=== PATIENT | male | born 1935 | race Two or more races ===

== ENCOUNTER 2020-02-11 08:04 | Inpatient (IN) | payer MEDICAID ==
[~2020-02-11] VITALS: Ht 172.7 cm; Wt 96.2 kg
--- NOTE | 2020-02-11 08:05 | NUR ---
ED Nurse Note: Patient arrives with RA # [id number] from [facility] for having bright red blood in his trach with low O2 sat per staff. [facility] suctioned patient and saturations improved to 98%. Patient presented with flat afect, reacting on deep pain. Patient had 2 vomoting episodes uppon arrival. Patient presented with bright red lood in his trach tube,and G-tube.
[2020-02-11 08:10] VITALS: BP 170/110
--- NOTE | 2020-02-11 08:13 | Emergency Room Report ---
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, trach, PEG vent dependent presents with bleeding trach prior to arrival, cleared up with some suctioning, no known aggravating relieving factors severity was severe lasting minutes to hours, patient apparently had a desaturation event as well that improved with suctioning patient presents for evaluation and treatment Allergies: Coded Allergies: No Known Allergies (Unverified , 02/11/20) COVID-19 Screening Contact w/high risk pt: No Experienced COVID-19 symptoms?: No COVID-19 Testing performed SLICE PLUG CUTTER OPERATOR HELPER: No Patient History Limited by: medical condition - 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 Past Medical History: see triage record Reviewed Nursing Documentation: PMH: Agreed; PSxH: Agreed Review of Systems All Other Systems: limited - 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 Physical Exam Vital Signs Date Time Temp Pulse Resp B/P (MAP) Pulse Ox O2 Delivery O2 Flow Rate FiO2 02/11/20 07:58 78 33 208/120 (149) 99 Room Air Sp02 EP Interpretation: reviewed, normal General Appearance: no apparent distress, obese Head: normocephalic, atraumatic Eyes: bilateral eye PERRL, bilateral eye EOMI ENT: uvula midline, moist mucus membranes Neck: supple, thyroid normal, supple/symm/no masses, tracheotomy Respiratory: no respiratory distress, no retraction, no accessory muscle use, rales Cardiovascular #1: normal peripheral pulses, regular rate, rhythm, no edema, no gallop, no murmur Gastrointestinal: non tender, soft, no guarding, no rebound Musculoskeletal: normal inspection Neurologic: responsive Skin: no rash, warm/dry Procedures Critical Care Time Critical Care Time Given the critical condition in which the patient arrived, the patient was immediately assessed by myself and the nurse, and cardiac monitoring initiated due to the potential for rapid decompensation of the patient's clinical condition. During the course of the patient's stay, I spent a considerable amount of time at the bedside performing serial re-evaluations of the patient's hemodynamic and clinical status because of the recognized potential threat to life or limb in this condition. I then had a chance to review not only all of the available current laboratory and radiographic studies obtained today, but I also reviewed old records available to me at the time. Additionally, any ancillary information available including production grader records were reviewed. Sequential vital signs were obtained. Critical Care time of 33 minutes was performed exclusive of billable procedures. Medical Decision Making Diagnostic Impression: Primary Impression: Tracheostomy complication Qualified Codes: J95.00 - Unspecified tracheostomy complication Additional Impressions: Tracheostomy malfunction Aspiration pneumonia Qualified Codes: J69.0 - Pneumonitis due to inhalation of food and vomit Sepsis Qualified Codes: A41.9 - Sepsis, unspecified organism; R65.20 - Severe seps is without septic shock; J96.01 - Acute respiratory failure with hypoxia ER Course 84-year-old male history of trach, CVA, PEG, presents with left lower lobe pneumonia, possible aspiration, patient with elevated lactic acid as well as bleeding from the tracheostomy that has since resolved Plan for admission to stepdown unit, cefepime, vancomycin started for MRSA as well as pseudomonal coverage Patient given 2 L of NS with significant improvement in heart rate from 130s down to 110 Plan for admission to stepdown unit under Dr. Crawford Laboratory Tests Test 02/11/20 08:09 02/11/20 08:10 White Blood Count 18.4 K/UL (4.8-10.8) H Red Blood Count 3.44 M/UL (4.70-6.10) L Hemoglobin 10.9 G/DL (14.2-18.0) L Hematocrit 36.7 % (42.0-52.0) L Mean Corpuscular Volume 107 FL (80-99) H Mean Corpuscular Hemoglobin 31.7 PG (27.0-31.0) H Mean Corpuscular Hemoglobin Concent 29.7 G/DL (32.0-36.0) L Red Cell Distribution Width 18.6 % (11.6-14.8) H Platelet Count 425 K/UL (150-450) Mean Platelet Volume 7.4 FL (6.5-10.1) Neutrophils (%) (Auto) % (45.0-75.0) Lymphocytes (%) (Auto) % (20.0-45.0) Monocytes (%) (Auto) % (1.0-10.0) Eosinophils (%) (Auto) % (0.0-3.0) Basophils (%) (Auto) % (0.0-2.0) Differential Total Cells Counted 100 Neutrophils % (Manual) 60 % (45-75) Lymphocytes % (Manual) 15 % (20-45) L Monocytes % (Manual) 16 % (1-10) H Eosinophils % (Manual) 8 % (0-3) H Basophils % (Manual) 1 % (0-2) Band Neutrophils 0 % (0-8) Platelet Estimate Adequate Platelet Morphology Normal Hypochromasia 1+ Anisocytosis 1+ Macrocytosis 1+ Prothrombin Time 11.7 SEC (9.30-11.50) H Prothrombin Time INR 1.1 (0.9-1.1) Activated Partial Thromboplast Time 26 SEC (23-33) Sodium Level 139 MMOL/L (136-145) Potassium Level 4.4 MMOL/L (3.5-5.1) Chloride Level 103 MMOL/L (98-107) Carbon Dioxide Level 33 MMOL/L (21-32) H Anion Gap 3 mmol/L (5-15) L Blood Urea Nitrogen 18 mg/dL (7-18) Creatinine 0.9 MG/DL (0.55-1.30) Estimated Glomerular Filtration Rate > 60 mL/min (>60) Glucose Level 191 MG/DL (74-106) H Lactic Acid Level 4.10 mmol/L (0.4-2.0) H Calcium Level 8.7 MG/DL (8.5-10.1) Phosphorus Level 4.6 MG/DL (2.5-4.9) Magnesium Level 2.1 MG/DL (1.8-2.4) Total Bilirubin 1.8 MG/DL (0.2-1.0) H Direct Bilirubin 1.0 MG/DL (0.0-0.3) H Aspartate Amino Transferase (AST) 43 U/L (15-37) H Alanine Aminotransferase (ALT) 27 U/L (12-78) Alkaline Phosphatase 104 U/L (46-116) Creatine Kinase MB 1.3 NG/ML (0.0-3.6) Troponin I 0.012 ng/mL (0.000-0.056) Pro-B-Type Natriuretic Peptide 5167 pg/mL (0-125) H Total Protein 8.4 G/DL (6.4-8.2) H Albumin 2.7 G/DL (3.4-5.0) L Globulin 5.7 g/dL Albumin/Globulin Ratio 0.5 (1.0-2.7) L Lipase 68 U/L (73-393) L Urine Color Pale yellow Urine Appearance Clear Urine pH 7 (4.5-8.0) Urine Specific [place] 1.005 (1.005-1.035) Urine Protein 2+ (NEGATIVE) H Urine Glucose (UA) Negative (NEGATIVE) Urine Ketones Negative (NEGATIVE) Urine Blood 5+ (NEGATIVE) H Urine Nitrite Negative (NEGATIVE) Urine Bilirubin Negative (NEGATIVE) Urine Urobilinogen 1 MG/DL (0.0-1.0) H Urine Leukocyte Esterase 1+ (NEGATIVE) H Urine RBC 5-10 /HPF (0 - 0) H Urine WBC 0-2 /HPF (0 - 0) Urine Squamous Epithelial Cells Occasional /LPF Urine Bacteria Occasional /HPF (NONE) Microbiology Date/Time Source Procedure Growth Status 02/11/20 08:09 Nasopharynx SARS-CoV-2 RdRp Gene Assay - Final Complete EKG Diagnostic Results Troponin ordered: Yes When was troponin ordered?: Feb 11, 2020 EKG Time: 08:31 EP Interpretation: Atrial fibrillation, rate 124, QTc 517, no acute ST lesions, left axis josh Rhythm Strip Diag. Results Rhythm Strip Time: 09:05 EP Interpretation: yes Rate: 109 Rhythm: other - atrial fibrillatiom Chest X-Ray Diagnostic Results Chest X-Ray Diagnostic Results : Chest X-Ray Ordered: Yes # of Views/Limited/Complete: 1 View Indication: Shortness of Breath EP Interpretation: Yes Interpretation: other - Left lower lobe consolidation Impression: Other - Left lower lobe consolidation Electronically Signed by: Winston Hoang MD Last Vital Signs Date Time Temp Pulse Resp B/P (MAP) Pulse Ox O2 Delivery O2 Flow Rate FiO2 02/11/20 07:58 78 33 208/120 (149) 99 Room Air Disposition: ADMITTED INPATIENT Condition: Critical Focused Exam Allergies: Coded Allergies: No Known Allergies (Unverified , 02/11/20) Date Exam Occurred: Feb 11, 2020 Time Exam Occurred: 09:04 Laboratory Studies Laboratory Tests Test 02/11/20 08:09 02/11/20 08:10 White Blood Count 18.4 K/UL (4.8-10.8) H Red Blood Count 3.44 M/UL (4.70-6.10) L Hemoglobin 10.9 G/DL (14.2-18.0) L Hematocrit 36.7 % (42.0-52.0) L Mean Corpuscular Volume 107 FL (80-99) H Mean Corpuscular Hemoglobin 31.7 PG (27.0-31.0) H Mean Corpuscular Hemoglobin Concent 29.7 G/DL (32.0-36.0) L Red Cell Distribution Width 18.6 % (11.6-14.8) H Platelet Count 425 K/UL (150-450) Mean Platelet Volume 7.4 FL (6.5-10.1) Neutrophils (%) (Auto) % (45.0-75.0) Lymphocytes (%) (Auto) % (20.0-45.0) Monocytes (%) (Auto) % (1.0-10.0) Eosinophils (%) (Auto) % (0.0-3.0) Basophils (%) (Auto) % (0.0-2.0) Neutrophils % (Manual) Pending Lymphocytes % (Manual) Pending Platelet Estimate Pending Platelet Morphology Pending Prothrombin Time 11.7 SEC (9.30-11.50) H Prothromb Time International Ratio 1.1 (0.9-1.1) Activated Partial Thromboplast Time 26 SEC (23-33) Sodium Level 139 MMOL/L (136-145) Potassium Level 4.4 MMOL/L (3.5-5.1) Chloride Level 103 MMOL/L (98-107) Carbon Dioxide Level 33 MMOL/L (21-32) H Anion Gap 3 mmol/L (5-15) L Blood Urea Nitrogen 18 mg/dL (7-18) Creatinine 0.9 MG/DL (0.55-1.30) Estimat Glomerular Filtration Rate > 60 mL/min (>60) Glucose Level 191 MG/DL (74-106) H Lactic Acid Level Pending Calcium Level Pending Phosphorus Level 4.6 MG/DL (2.5-4.9) Magnesium Level 2.1 MG/DL (1.8-2.4) Total Bilirubin 1.8 MG/DL (0.2-1.0) H Direct Bilirubin 1.0 MG/DL (0.0-0.3) H Aspartate Amino Transf (AST/SGOT) 43 U/L (15-37) H Alanine Aminotransferase (ALT/SGPT) 27 U/L (12-78) Alkaline Phosphatase 104 U/L (46-116) Creatine Kinase MB 1.3 NG/ML (0.0-3.6) Troponin I 0.012 ng/mL (0.000-0.056) Pro-B-Type Natriuretic Peptide 5167 pg/mL (0-125) H Total Protein 8.4 G/DL (6.4-8.2) H Albumin 2.7 G/DL (3.4-5.0) L Globulin 5.7 g/dL Albumin/Globulin Ratio 0.5 (1.0-2.7) L Lipase 68 U/L (73-393) L Urine Color Pale yellow Urine Appearance Clear Urine pH 7 (4.5-8.0) Urine Specific [place] 1.005 (1.005-1.035) Urine Protein 2+ (NEGATIVE) H Urine Glucose (UA) Negative (NEGATIVE) Urine Ketones Negative (NEGATIVE) Urine Blood 5+ (NEGATIVE) H Urine Nitrite Negative (NEGATIVE) Urine Bilirubin Negative (NEGATIVE) Urine Urobilinogen 1 MG/DL (0.0-1.0) H Urine Leukocyte Esterase 1+ (NEGATIVE) H Urine RBC Pending Urine WBC Pending Urine Squamous Epithelial Cells Pending Urine Bacteria Pending Vital Signs Last 24 Hour Vital Signs Date Time Temp Pulse Resp B/P (MAP) Pulse Ox O2 Delivery O2 Flow Rate FiO2 02/11/20 08:22 82 30 100 02/11/20 08:10 120 20 Mechanical Ventilator 02/11/20 08:10 97.1 120 20 170/110 99 Mechanical Ventilator 90 02/11/20 07:58 78 33 208/120 (149) 99 Room Air Respiratory Exam: Rhonchi Cardiovascular Exam: S1, S2, Tachycardia, Iregularly Irregular Capillary Refill: Less Than 2 Seconds Peripheral Pulse: Strong Pulse Location: Radial Skin Exam: Normal Winston Medeiros MD Feb 11, 2020 08:13
--- NOTE | 2020-02-11 08:25 | NUR ---
ED Nurse Note: IV line was established on right AC 20ga, blood collected sent to lab
--- NOTE | 2020-02-11 08:27 | NUR ---
ED Nurse Note: Patient was swabed for MRSA, VRE, CRE and COVID all swabs sent to lab
[2020-02-11] MEDS ORDERED: VANCOMYCIN 1.5 GM/300 ML IVPB ONE (08:30)
[2020-02-11] MEDS ORDERED: Cefepime HCl 2 GM in NS 110 ML IV ONE (08:30)
--- NOTE | 2020-02-11 08:36 | NUR ---
ANRDIA Nurse Note: PAULIE- Addendum: 02/11/20 at 0837 by GUZMAN SABRINA-SHANE
[2020-02-11 08:37] LABS: HEMATOCRIT 36.7 % (42.0-52.0); HEMOGLOBIN 10.9 G/DL (14.2-18.0); MEAN CORPUSCULAR VOLUME 107 FL (80-99); PLATELET COUNT 425 K/UL (150-450); RED BLOOD COUNT 3.44 M/UL (4.70-6.10); RED CELL DISTRIBUTION WIDTH 18.6 % (11.6-14.8); WHITE BLOOD COUNT 18.4 K/UL (4.8-10.8)
[2020-02-11 08:45] LABS: INR 1.1 (0.9-1.1)
[2020-02-11] MEDS ORDERED: SENOKOT8.6 MG GT (08:45)
[2020-02-11] MEDS ORDERED: LOSARTAN POTASS50 MG GT (08:45)
[2020-02-11] MEDS ORDERED: BISACODYL5 MG GT (08:45)
[2020-02-11] MEDS ORDERED: METOPROLOL SUCC50 MG GT (08:45)
[2020-02-11] MEDS ORDERED: KEPPRA LIQ100 MG/1 M GT (08:45)
[2020-02-11] MEDS ORDERED: REGLAN10 MG GT (08:45)
[2020-02-11 08:59] LABS: ALANINE AMINOTRANSFERASE 27 U/L (12-78); ALBUMIN 2.7 G/DL (3.4-5.0); ALBUMIN/GLOBULIN RATIO 0.5 (1.0-2.7); ALKALINE PHOSPHATASE 104 U/L (46-116); ANION GAP 3 mmol/L (5-15); ASPARTATE AMINO TRANSFERASE 43 U/L (15-37); BILIRUBIN,TOTAL 1.8 MG/DL (0.2-1.0); BLOOD UREA NITROGEN 18 mg/dL (7-18); CARBON DIOXIDE 33 MMOL/L (21-32); CHLORIDE 103 MMOL/L (98-107); CKMB 1.3 NG/ML (0.0-3.6); CREATININE 0.9 MG/DL (0.55-1.30); PHOSPHORUS 4.6 MG/DL (2.5-4.9); POTASSIUM 4.4 MMOL/L (3.5-5.1); SODIUM 139 MMOL/L (136-145)
[2020-02-11 09:01] LABS: BILIRUBIN, URINE NEGATIVE (NEGATIVE); GLUCOSE, URINE (UA) NEGATIVE (NEGATIVE); KETONES,URINE NEGATIVE (NEGATIVE); LEUKOCYTE ESTERASE ,URINE 1+ (NEGATIVE); NITRITE,URINE NEGATIVE (NEGATIVE); PH,URINE 7 (4.5-8.0); PROTEIN,URINE 2+ (NEGATIVE); UROBILINOGEN,URINE 1 MG/DL (0.0-1.0)
[2020-02-11 09:02] LABS: APPEARANCE,URINE CLEAR; COLOR,URINE PALE YELLOW
[2020-02-11 09:13] LABS: CALCIUM 8.7 MG/DL (8.5-10.1)
[2020-02-11] MEDS ORDERED: Vancomycin 1.5 GM in NS 275 ML IVPB ONE (09:15)
[2020-02-11 09:52] VITALS: BP 110/71
--- NOTE | 2020-02-11 09:54 | NUR ---
ED Nurse Note: Johnson catheter was placed 16F, patient tolerated procedure well
--- NOTE | 2020-02-11 10:23 | Diagnostic Imaging Report ---
Indication: Cough Technique: One view of the chest Comparison: none Findings: There is infiltrate at the left lung base. There may be some pleural fluid. The heart size is normal. There is a tracheostomy. Impression: Left basilar infiltrate and possible pleural fluid Tracheostomy
--- NOTE | 2020-02-11 10:53 | NUR ---
ED Nurse Note: Report given to LISSA Galarza.
--- NOTE | 2020-02-11 11:06 | NUR ---
NURSE NOTES:Report received from FIELD ASSISTANTCici. Patient will be going to room 242.
--- NOTE | 2020-02-11 11:16 | NUR ---
ED Nurse Note: Patient was admited to SDU due to trache malfunctioning. Patient was transfered to the unit via gurney by ACLS protocol, with all belongings. Patient still AAO x0, VSS at this time.
--- NOTE | 2020-02-11 11:45 | NUR ---
NURSE NOTES:Patient transferred to the floor from the ER. Patient arrived via gurney and placed on the bed. Patient does not have any belongings. Patient vitals are stable with blood pressure elevated 149/96, RT placed patient on ventilator with the following settings: Trach is portex 7, AC 12, TV 500, Fi02 40% and peep of 5, patient satting at 100% with no signs of distress noted. Patient IV site is clean dry and intact, running vancomycin. Patient oriented to room and call light, placed on aspiration and fall risk precautions, with bed alarm in the low and locked position, with call light on bed next to patient. Patient is on director clinical operations SR with 78 HR. Johnson placed in the ER is patent and draining yellow urine to gravity and attached to bedside. Patient has pressure injury R lateral malleolus, clean dry and intact with a new optifoam dressing, also applied optifoam to the bilateral heels for prevention. Will contact primary MD for orders.
[2020-02-11 12:00] VITALS: BP 166/77
--- NOTE | 2020-02-11 12:46 | NUR ---
DAUGHTER -SABRINA SALCEDO -[phone],REQUESTED FOR MEDICAL SECRETARY,I CALLED MEDICAL SECRETARY-GILMAR WHEELER,NOTIFIED DAUGHTER REQUESTED FOR HER,GAVE HER NUMBER
--- NOTE | 2020-02-11 13:02 | NUR ---
RAG PRODUCTION WORKER NOTE SW spoke w/ the daughter, Mallorie Garcia, assisted w/ the verification letter of hospitalization as per request.
--- NOTE | 2020-02-11 13:26 | NUR ---
NURSE NOTES:Dr Johnston rounded on patient and gave TO/RB orders for: full code, SCD"s, NPO, Tylenol for fever and mild pain, 1/2NS @ 55ML/HR, discontinue home medications except Keppra 15ml G-tube 2x daily and Losartan 50MG GT daily.
[2020-02-11] MEDS ORDERED: Acetaminophen 650mg/20.3ml GT PRN ×2 (13:30→13:45)
[2020-02-11] MEDS: Piperacillin/Tazobactam 3.375 GM in NS 110 ML IVPB SCH ×2 (14:17→22:01)
--- NOTE | 2020-02-11 14:36 | NUR ---
NURSE NOTES: WOUND ASSESSMENT PATIENT NON-RESPONSIVE WITH TRACH TO VENTILATOR. 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 INTACT. RECOMMEND-CALIVON SKIN PROTECTOR AND OPTIFOAM DRESSING REPLACE EVERY 3 DAYS POSTERIOR SCROTUM -ABRASION NOTED. MEASURES 1X1.2X0.1CM. RECOMMEND-APPLY CALAZINE AND LEAVE OPEN TO AIR. DARK PURPLE BRUISE NOTED ON LEFT UPPER POSTERIOR THIGH. RIGHT LATERAL ANKLE- STAGE III PRESSURE ULCER. MEASURES 0.8X0.5X0.2CM. WOUND BED WITH 60% SLOUGH AND 40% PINK GRANULATION TISSUE TO WOUND BED. THANH-WOUND WITH EVIDENCE OF OLD SCAR. RECOMMEND-CLEAN WITH SALINE. PAT DRY AND APPLY THERAHONEY. COVER WITH OPTIFOAM DRESSING. REPLACE DAILY. ALSO RECOMMEND: REPOSITION AT LEAST EVERY 2 HOURS OR TOLERATED. ELEVATE HEELS WITH PILLOWS. ABOVE DISCUSSED WITH PATIENT'S NURSE.
--- NOTE | 2020-02-11 15:15 | Consultation ---
DATE OF CONSULTATION: 02/11/2020 PRIMARY ATTENDING PHYSICIAN: Oral Crawford MD REASON FOR CONSULT: Sepsis and pneumonia. HISTORY OF PRESENT ILLNESS: This 84-year-old male is admitted today from a nursing facility. The patient was noticed to have bleeding from tracheostomy site. The patient had leukocytosis of 18.4, tachycardia with heart rate of 120, respiratory rate of 33, and chest x-ray showed infiltrate. Had lactic acidosis of 4.1. PAST MEDICAL HISTORY: Significant for history of CVA, ventilator-dependent respiratory failure, status post tracheostomy, status post G-tube placement. ALLERGIES: No known drug allergies. MEDICATIONS: Got the dose of cefepime and vancomycin in the ER. SOCIAL HISTORY: . custodial resident with poor mental and functional status. No other history obtainable. PHYSICAL EXAMINATION: VITAL SIGNS: Temperature 97.1, pulse 108, blood pressure 110/71. GENERAL APPEARANCE: Seems to have normal weight. HEAD AND NECK: Status post tracheostomy. Slight amount of blood at tracheostomy site. HEART: Tachycardic. LUNGS: Clear. ABDOMEN: Soft. G-tube in place. GENITOURINARY: Johnson catheter. EXTREMITIES: Have edema. SKIN: Has rash, especially in upper extremities, seems to be chronic. NEUROLOGIC: Minimally responsive. LABORATORY AND DIAGNOSTIC DATA: Sodium 139, potassium 4.4, chloride 103, bicarb 33, BUN 18, creatinine 0.9, glucose 191. Last lactic acid is 108. Bilirubin is elevated, 1.8. AST 43. BNP is elevated at 5167. Lipase 68. COVID test negative. Chest x-ray shows left basilar infiltrate. IMPRESSION: Sepsis with leukocytosis, tachycardia, and increase in respiratory rate, has left-sided pneumonia, suspected of ventilator-associated pneumonia. Has tracheostomy complication with bleeding. Has anemia and ventilator-dependent respiratory failure. Has elevated bilirubin. RECOMMENDATIONS: Start the patient on IV Zosyn. We will follow up the culture. We will order sputum culture. We will follow up LFT in a few days. At the end of my exam, I thank Dr. Crawford for involving me in the care of this patient. Ulises Vasquez M.D. DR: SHAHRIAR JOB#: [id number] CC:
[2020-02-11 16:00] VITALS: BP 136/63
--- NOTE | 2020-02-11 16:16 | NUR ---
NURSE NOTES:Dr Barry rounded on patient and gave orders for Cardizem 60mg C9lakcs via g tube and Clonidine .01mg F0gceme PRN for SBP >170.
--- NOTE | 2020-02-11 16:23 | Cardiac Electrophysiology PN ---
Subjective Subjective [id number] Objective Last 24 Hour Vital Signs Date Time Temp Pulse Resp B/P (MAP) Pulse Ox O2 Delivery O2 Flow Rate FiO2 02/11/20 16:00 40 02/11/20 15:56 Mechanical Ventilator 02/11/20 15:15 69 20 40 02/11/20 13:10 72 15 40 02/11/20 12:00 40 02/11/20 12:00 97.5 78 22 166/77 (106) 100 02/11/20 12:00 Mechanical Ventilator 02/11/20 12:00 78 02/11/20 11:46 Mechanical Ventilator 02/11/20 11:20 74 29 100 Mechanical Ventilator 40 02/11/20 11:20 74 29 40 02/11/20 11:16 97.1 108 22 110/71 99 Mechanical Ventilator 90 02/11/20 09:52 97.1 108 22 110/71 99 Mechanical Ventilator 90 02/11/20 08:22 82 30 100 02/11/20 08:10 120 20 Mechanical Ventilator 02/11/20 08:10 97.1 120 20 170/110 99 Mechanical Ventilator 90 02/11/20 07:58 78 33 208/120 (149) 99 Room Air Laboratory Tests Test 02/11/20 08:09 02/11/20 08:10 02/11/20 10:40 White Blood Count 18.4 K/UL (4.8-10.8) H Red Blood Count 3.44 M/UL (4.70-6.10) L Hemoglobin 10.9 G/DL (14.2-18.0) L Hematocrit 36.7 % (42.0-52.0) L Mean Corpuscular Volume 107 FL (80-99) H Mean Corpuscular Hemoglobin 31.7 PG (27.0-31.0) H Mean Corpuscular Hemoglobin Concent 29.7 G/DL (32.0-36.0) L Red Cell Distribution Width 18.6 % (11.6-14.8) H Platelet Count 425 K/UL (150-450) Mean Platelet Volume 7.4 FL (6.5-10.1) Neutrophils (%) (Auto) % (45.0-75.0) Lymphocytes (%) (Auto) % (20.0-45.0) Monocytes (%) (Auto) % (1.0-10.0) Eosinophils (%) (Auto) % (0.0-3.0) Basophils (%) (Auto) % (0.0-2.0) Differential Total Cells Counted 100 Neutrophils % (Manual) 60 % (45-75) Lymphocytes % (Manual) 15 % (20-45) L Monocytes % (Manual) 16 % (1-10) H Eosinophils % (Manual) 8 % (0-3) H Basophils % (Manual) 1 % (0-2) Band Neutrophils 0 % (0-8) Platelet Estimate Adequate Platelet Morphology Normal Hypochromasia 1+ Anisocytosis 1+ Macrocytosis 1+ Prothrombin Time 11.7 SEC (9.30-11.50) H Prothromb Time International Ratio 1.1 (0.9-1.1) Activated Partial Thromboplast Time 26 SEC (23-33) Sodium Level 139 MMOL/L (136-145) Potassium Level 4.4 MMOL/L (3.5-5.1) Chloride Level 103 MMOL/L (98-107) Carbon Dioxide Level 33 MMOL/L (21-32) H Anion Gap 3 mmol/L (5-15) L Blood Urea Nitrogen 18 mg/dL (7-18) Creatinine 0.9 MG/DL (0.55-1.30) Estimat Glomerular Filtration Rate > 60 mL/min (>60) Glucose Level 191 MG/DL (74-106) H Lactic Acid Level 4.10 mmol/L (0.4-2.0) H 1.80 mmol/L (0.66-2.22) Calcium Level 8.7 MG/DL (8.5-10.1) Phosphorus Level 4.6 MG/DL (2.5-4.9) Magnesium Level 2.1 MG/DL (1.8-2.4) Total Bilirubin 1.8 MG/DL (0.2-1.0) H Direct Bilirubin 1.0 MG/DL (0.0-0.3) H Aspartate Amino Transf (AST/SGOT) 43 U/L (15-37) H Alanine Aminotransferase (ALT/SGPT) 27 U/L (12-78) Alkaline Phosphatase 104 U/L (46-116) Creatine Kinase MB 1.3 NG/ML (0.0-3.6) Troponin I 0.012 ng/mL (0.000-0.056) Pro-B-Type Natriuretic Peptide 5167 pg/mL (0-125) H Total Protein 8.4 G/DL (6.4-8.2) H Albumin 2.7 G/DL (3.4-5.0) L Globulin 5.7 g/dL Albumin/Globulin Ratio 0.5 (1.0-2.7) L Lipase 68 U/L (73-393) L Urine Color Pale yellow Urine Appearance Clear Urine pH 7 (4.5-8.0) Urine Specific [place] 1.005 (1.005-1.035) Urine Protein 2+ (NEGATIVE) H Urine Glucose (UA) Negative (NEGATIVE) Urine Ketones Negative (NEGATIVE) Urine Blood 5+ (NEGATIVE) H Urine Nitrite Negative (NEGATIVE) Urine Bilirubin Negative (NEGATIVE) Urine Urobilinogen 1 MG/DL (0.0-1.0) H Urine Leukocyte Esterase 1+ (NEGATIVE) H Urine RBC 5-10 /HPF (0 - 0) H Urine WBC 0-2 /HPF (0 - 0) Urine Squamous Epithelial Cells Occasional /LPF Urine Bacteria Occasional /HPF (NONE) Microbiology Date/Time Source Procedure Growth Status 02/11/20 08:10 Rectum Received 02/11/20 08:09 Nasopharynx SARS-CoV-2 RdRp Gene Assay - Final Complete Liang Barry MD Feb 11, 2020 16:23
--- NOTE | 2020-02-11 17:00 | History and Physical Report ---
DATE OF ADMISSION: 02/11/2020 HISTORY OF PRESENT ILLNESS: Patient comes in because of bleeding from the trach site. Patient is status post trach and PEG and status post CVA. Presents with bleeding from the trach site. Patient unable to give any history. Patient also admitted for possible aspiration pneumonia. Does have left lower quadrant consolidation on the chest x-ray as well as leukocytosis. Patient also has elevated CO2 and elevated bilirubin and also tachycardic. Unable to get any history from the patient. PAST MEDICAL HISTORY: Respiratory insufficiency, gastroparesis, hypertension, seizure disorder, constipation, CVA. Patient also had an episode of at the long term. PAST SURGICAL HISTORY: Trach and PEG. FAMILY HISTORY: Unable to obtain. REVIEW OF SYSTEMS: Unable to obtain. SOCIAL HISTORY: Unable to obtain. However according to the notes, patient has no history of smoking, alcohol, or illicit drugs. Comes from a long term facility. MEDICATIONS: Patient takes Senokot, metoprolol, losartan, Keppra, and Bisacodyl. PHYSICAL EXAMINATION: VITAL SIGNS: Temperature is 97.1, pulse is 108, blood pressure 110/71. HEENT: PERRLA. CHEST: Decreased breath sounds on the left. CARDIOVASCULAR: Regular rate and rhythm. Tachycardia is improved. No murmurs. GASTROINTESTINAL: Soft. Positive bowel sounds. Patient has trach site and PEG site does not look that is infected. ABDOMEN: Soft, nontender. No organomegaly. EXTREMITIES: Dorsalis pedis pulses are present. Nonverbal. CENTRAL NERVOUS SYSTEM: Cannot get neurological exam. Patient is mostly nonverbal. Chest x-ray shows left lower lobe pneumonia. LABORATORY DATA: WBC of 18.4, hemoglobin 10.9, platelets 425. Sodium 139, potassium 4.4, BUN of 18, creatinine 0.9, glucose of 191. Lactic acid 4.1. Troponin 0.012. Total bilirubin 1.8. ASSESSMENT AND PLAN: Bleeding from possible trach site, aspiration pneumonia, elevated CO2, elevated bilirubin, tachycardia, and lactic acidosis. I have asked Dr. Samayoa, Dr. Barry, Dr. Rylan Otero, Dr. Ulises Vasquez see the patient for the above-mentioned abnormalities and abnormal imaging as well as abnormal laboratories and abnormal symptoms. Antibiotics if any per Dr. Ulises Vasquez. Ali Kandy Crawford DR: GILBERT JOB#: [id number] CC:
--- NOTE | 2020-02-11 17:03 | NUR ---
503NURSE NOTES:Dr Otero called back and confirmed vent settings for patient as follows: AC12, TV500, FI02 40% and PEEP of 5%, patient tolerating well with current 02 saturation of 100%
[2020-02-11] MEDS: dilTIAZem HCl 60mg tab GT SCH (17:22)
--- NOTE | 2020-02-11 19:15 | NUR ---
NURSE NOTES: Received report from Saad Coley RN. pt is seen sleeping in bed in semi-hernandez's position. Padded side rails noted. Pt is connected to [facility] vent with settings of AC 12, TV 500, fio2- 40% peep of 5.0. O2 sat 97%. Pt has nosigns of apparent distress. Pt breathing is even and unlabored. No signs of pain as pt is sleeping comfortably in bed. No bleeding noted at trach site. With Right AC g20 running 1/2 NS @55ml/hr patent and intact. Bed in lowest position. Call light within reach. Continue to plan of care.
--- NOTE | 2020-02-11 19:36 | NUR ---
NURSE HAND-OFF REPORT: Important Events on Shift:New admit Patient Status: Stable, requires suctioning for coughing of blood in Trach Diet: Pending Orders: Venous Duplex Pending Results/Labs: Pending MD notification: Latest Vital Signs: Temperature 100.0 , Pulse 57 , B/P 136 /63 , Respiratory Rate 23 , O2 SAT 100 , Mechanical Ventilator, O2 Flow Rate . Vital Sign Comment: EKG Rhythm: Sinus Rhythm Rhythm change?: N MD Notified?: - MD Response: Latest Wall Fall Score: 35 Fall Risk: Medium Risk Safety Measures: Call light Within Reach, Bed Alarm Zone 3, Side Rails Side Rails x3, Bed position Low and Locked. Fall Precautions: Yellow Socks Patient Fall Education Report given to LISSA James
[2020-02-11 20:00] VITALS: BP 127/58
[2020-02-11] MEDS: levETIRAcetam 500mg/5ml Liquid GT SCH (20:39)
--- NOTE | 2020-02-11 20:42 | Diagnostic Imaging Report ---
EXAM: US Duplex Bilateral Lower Extremities Veins CLINICAL HISTORY: Pain. THROM TECHNIQUE: Real-time duplex ultrasound scan of the bilateral lower extremity veins integrating B-mode two-dimensional vascular structure, Doppler spectral analysis, color flow Doppler imaging and compression. COMPARISON: No relevant prior studies available. FINDINGS: Right deep veins: Unremarkable. No DVT in the right common femoral, femoral, proximal deep femoral or popliteal veins. The veins demonstrate normal color flow, are normally compressible, with normal phasic flow and/or augmentation response. Right superficial veins: Unremarkable. No thrombus in the visualized right great saphenous vein. Left deep veins: Unremarkable. No DVT in the left common femoral, femoral, proximal deep femoral or popliteal veins. The veins demonstrate normal color flow, are normally compressible, with normal phasic flow and/or augmentation response. Left superficial veins: Unremarkable. No thrombus in the visualized left great saphenous vein. Soft tissues: No acute findings. IMPRESSION: No DVT.
--- NOTE | 2020-02-11 21:00 | Consultation ---
DATE OF CONSULTATION: 02/11/2020 CARDIOLOGY CONSULTATION CONSULTING PHYSICIAN: Liang Barry MD REFERRING PHYSICIAN: Oral Crawford MD REASON FOR CONSULTATION: Accelerated hypertension, atrial fibrillation. 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 Patient also noted to have atrial fibrillation with rapid ventricular response with a blood pressure of , now the blood pressure is 208/120. Patient was admitted and Cardiology consultation was obtained for further evaluation. REVIEW OF SYSTEMS: Cannot be obtained due to his mental status. PAST MEDICAL HISTORY: As mentioned above. FAMILY HISTORY: Noncontributory. SOCIAL HISTORY: longterm resident. Does not smoke or drink alcohol. PHYSICAL EXAMINATION: VITAL SIGNS: Blood pressure was 208/120, pulse is 80, was as high as 140 during atrial fibrillation, respirations of 30. HEAD AND NECK: Showed no JVD. Status post tracheostomy. LUNGS: Coarse rhonchi. CARDIOVASCULAR: Shows irregular S1 and S2 with no gallop. ABDOMEN: Soft. Status post G-tube. EXTREMITIES: No pitting edema. LABORATORY DATA: His labs show white count of 18.4, hemoglobin of 11, hematocrit 36, and platelet count of 425. Sodium 139, potassium 4.4, BUN of 18, creatinine of 0.9, and glucose of 191. Troponin is negative. ASSESSMENT AND PLAN: 1. Atrial fibrillation with rapid ventricular response. I will add Cardizem 60 mg q.6h. to his medical regimen. Patient currently is not on any anticoagulation. 2. Accelerated hypertension. Patient on losartan 50 mg daily and Cardizem that would help with atrial fibrillation as well. 3. Bleeding from the trach site. Further evaluation by Surgery. 4. Ventilator-respiratory failure. Further evaluation by Dr. Otero. 5. Dysphagia, status post PEG placement. 6. Elevated white count and sepsis, on IV antibiotic. Thank you very much for allowing me to participate in the care of this patient. Please do not hesitate to contact me for any questions regarding my evaluation. Liang Barry M.D. DR: JOHAN JOB#: [id number] CC:
[2020-02-12] MEDS: dilTIAZem HCl 60mg tab GT SCH ×4 (00:15→18:43)
[2020-02-12 00:51] VITALS: BP 148/64
--- NOTE | 2020-02-12 00:55 | NUR ---
NURSE NOTES: Cleaned patient, sponge bath given. VS WNL. No signs of apparent distress. Suctioned tracheal secretions noted bright red secretions. prev aware.
[2020-02-12 04:00] VITALS: BP 124/63
--- NOTE | 2020-02-12 04:00 | NUR ---
NURSE NOTES: Seen pt with no apparent distress.Pt is still appears drowsy and sleeping but no signs of pain. VS WNL. Suctioned tracheal secretion with Bright red secretions. Reposition pt. Continue to plan of care.
--- NOTE | 2020-02-12 05:00 | NUR ---
NURSE NOTES: Rechecked temp 98.1 after Sponge bath is given from temp 99. Not in distress. No pain. o2 sat 100%. Continue to plan of care.
[2020-02-12] MEDS: Piperacillin/Tazobactam 3.375 GM in NS 110 ML IVPB SCH ×3 (05:12→21:10)
--- NOTE | 2020-02-12 06:08 | NUR ---
NURSE NOTES: Seen pt with no apparent distress.Pt is still appears drowsy and sleeping but no signs of pain. VS WNL. Temp-98.1
--- NOTE | 2020-02-12 06:49 | NUR ---
NURSE NOTES: Noted trending up Trop I. EKG done- Pt is asymptomatic and NSR was noted. Continue to plan of care.
--- NOTE | 2020-02-12 07:15 | NUR ---
NURSE NOTES:RECEIVED BED SIDE REPORT FROM LUIS LEATHER CLEANER OF EXECUTIVE MARKETING ASSISTANT. RECE,D PT WITH HOB ELEVATED 45 DEGREE OBTUNDED TRACH TO VENT .PT TRACH WITH BLOOD TINGE NOTED DURING SUCTIONING BY RT , RENDERED TRACH CARE AND ORAL HYGIENE . PT WITH GT PATENT .GTF ON HOLD PER M.D ORDERS.PT TOLERATING WELL CURRENTS VENT SETTINGS,O2 SAT 100% NOTED AT THIS TIME.FULL BODY ASSESSMENT DONE,REPOSITIONED Q 2 HRS TO PROVIDE COMFORT AND TO PREVENT FURTHER SKIN BREAK DOWN.NO ACUTE DISTRESS TOTED AT THIS TIME. WILL CONT TO MONITOR.
--- NOTE | 2020-02-12 07:15 | NUR ---
NURSE HAND-OFF REPORT: Important Events on Shift: Pt secretion in trach still bright red bleeding, Trop I- 0.038- pt asymptomatic, EKG done- ESR, SSR with 1sr degree AV block- 1x episode pt is asymptomatic endorsed to AM nurse. Patient Status: Stable Diet: NPO Pending Orders: None Pending Results/Labs: None Pending MD notification: None Latest Vital Signs: Temperature 97.7 , Pulse 63 , B/P 129 /59 , Respiratory Rate 15 , O2 SAT 99 , Mechanical Ventilator, O2 Flow Rate . Vital Sign Comment: WNL EKG Rhythm: SSR w/ 1st deg AVB Rhythm change?: N MD Notified?: - MD Response: Latest Wall Fall Score: 35 Fall Risk: Medium Risk Safety Measures: Call light Within Reach, Bed Alarm Zone 1, Side Rails Side Rails x3, Bed position Low and Locked. Fall Precautions: Yellow Socks Patient Fall Education Report given to [LISSA HUDDLESTON].
[2020-02-12 08:00] VITALS: BP 125/59
[2020-02-12] MEDS ORDERED: Losartan 50mg tab GT SCH (09:00)
--- NOTE | 2020-02-12 10:00 | Consultation ---
DATE OF CONSULTATION: 02/12/2020 PULMONARY CONSULTATION CONSULTING PHYSICIAN: Rylan Otero MD HISTORY OF PRESENT ILLNESS: This is an 84-year-old male who has a history of chronic tracheostomy, CVA, and chronic gastrostomy tube. He was sent to the hospital for notable episodes of tracheal bleeding. The tracheal bleeding apparently cleared up with suctioning. Overnight, he has been suctioned by nurses and there is mild tracheal bleeding noted. The tracheostomy site itself appears to be clean. Yesterday, it is noted that he was desaturating with suctioning as well. PAST MEDICAL HISTORY: Chronic encephalopathy, chronic tracheostomy, gastrostomy tube, vent dependence. CURRENT MEDICATIONS: Include Zosyn, vancomycin, clonidine, Cardizem, Keppra, and losartan. REVIEW OF SYSTEMS: Not obtainable. PHYSICAL EXAMINATION: GENERAL: Reveals an elderly male. HEENT: Unremarkable. Trach site is clean. VITAL SIGNS: Blood pressure is 120/60, heart rate 64, respirations 18, he is afebrile, O2 saturation 100% on FiO2 45%. LABORATORY DATA: Lab testing shows white count 18,000, hemoglobin of 10.9, platelet count is normal. Chemistries are unremarkable except for a glucose of 191. Lactic acid 4.1, now 1.8. Coags are negative. Urinalysis shows few pus cells. Venous duplex is negative for DVT. X-ray chest shows a left basilar infiltrate. IMPRESSION: 1. Left lung pneumonia. 2. Leukocytosis. 3. Lactic acidemia. 4. Tracheal bleeding. 5. Chronic tracheostomy. 6. Chronic vent dependence. 7. Chronic G-tube. 8. Previous CVA. DISCUSSION: Admit to the hospital. Agree with broad-spectrum antibiotics. Oxygen and pulmonary hygiene. Tracheostomy site is not to be addressed as it is clean. Await sputum culture. We will follow carefully. DVT and GI prophylaxes. Rylan Otero M.D. DR: JUSTIN JOB#: [id number] CC:
[2020-02-12] MEDS: levETIRAcetam 500mg/5ml Liquid GT SCH ×2 (10:17→21:09)
--- NOTE | 2020-02-12 11:04 | NUR ---
RD ASSESSMENT & RECOMMENDATIONS SEE CARE ACTIVITY FOR COMPLETE ASSESSMENT DAILY ESTIMATED NEEDS: Needs based on Critical care, wound/ 76kg abw 22-28 kcals/kg 2069-7381 total kcals 1.25-2 g protein/kg 95-152 g total protein 25-30 mL/kg 4239-8502 total fluid mLs NUTRITION DIAGNOSIS: * Swallowing difficulty R/T respiratory status as evidenced by trach/vent dep, PEG dep, NPO at this time. * Increased kcal/prot/micronutrients needs R/T wound healing as evidenced by pt admitted w/ stage 3 R lateral ankle wound. CURRENT TF:NPO ENTERAL NUTRITION RECOMMENDATIONS: Glucerna 1.5 @ 55ml/hr x 24 hrs to provide 1320ml, 1980kcal, 109g prot, 1002ml free water * As medically appropriate, initiate Glucerna 1.5 @ 25ml/hr x 6hrs * Advance 10ml q 4-6 hrs as tolerated to goal rate * HOB over 30 degrees/ water flush per MD ADDITIONAL RECOMMENDATIONS: * Calibrated bedscale wt * Wound healing: TF rec @ goal provides 100% RDI add Vit C 500mg QD, ZnSO4 220mg QD x 10 days Yuriy BID via PEG w/ TF order * Monitor BGs, need for NISS
--- NOTE | 2020-02-12 11:27 | Infectious Diseases Prog Note ---
Assessment/Plan Assessment/Plan IMPRESSION: Sepsis Bacteremia Left-sided pneumonia, Tracheostomy complication with bleeding. Anemia Ventilator-dependent respiratory failure. Elevated bilirubin. RECOMMENDATIONS: Continue IV Zosyn. Start on IV Vancomycin We will follow up the cultures. Subjective ROS Limited/Unobtainable: Yes Constitutional: Denies: fever Allergies: Coded Allergies: No Known Allergies (Unverified , 02/11/20) Objective Last 24 Hour Vital Signs Date Time Temp Pulse Resp B/P (MAP) Pulse Ox O2 Delivery O2 Flow Rate FiO2 02/12/20 08:00 Mechanical Ventilator 02/12/20 08:00 99.1 69 21 125/59 (81) 100 02/12/20 07:00 78 18 45 02/12/20 05:30 63 15 40 02/12/20 05:13 72 129/59 02/12/20 04:00 Mechanical Ventilator 02/12/20 04:00 40 02/12/20 04:00 97.7 64 20 124/63 (83) 99 02/12/20 03:29 67 02/12/20 03:03 59 15 40 02/12/20 00:51 99.0 72 18 148/64 (92) 100 02/12/20 00:50 61 15 40 02/12/20 00:15 72 148/64 02/12/20 00:00 Mechanical Ventilator 02/11/20 23:28 61 02/11/20 22:52 60 18 40 02/11/20 20:49 67 21 40 02/11/20 20:00 98.1 63 14 127/58 (81) 96 02/11/20 20:00 Mechanical Ventilator 02/11/20 20:00 40 02/11/20 19:05 54 02/11/20 19:03 57 23 40 02/11/20 17:22 69 136/63 02/11/20 17:05 67 19 40 02/11/20 16:00 100.0 70 22 136/63 (87) 100 02/11/20 16:00 69 02/11/20 16:00 40 02/11/20 15:56 Mechanical Ventilator 02/11/20 15:15 69 20 40 02/11/20 13:10 72 15 40 02/11/20 12:00 40 02/11/20 12:00 97.5 78 22 166/77 (106) 100 02/11/20 12:00 Mechanical Ventilator 02/11/20 12:00 78 02/11/20 11:46 Mechanical Ventilator Height (Feet): 5 Height (Inches): 8.00 Weight (Pounds): 212 HEENT: status post trach Respiratory/Chest: lungs clear, other - on ventilator Cardiovascular: normal rate Abdomen: soft, non tender, other - GT feeding Extremities: other - trace edema Skin: rash, other - pigmentation in arms Neurologic/Psychiatric: aphasia Microbiology Date/Time Source Procedure Growth Status 02/11/20 13:40 Sputum Gram Stain - Final Resulted 02/11/20 13:40 Sputum Sputum Culture Pending Resulted 02/11/20 08:10 Rectum Received 02/11/20 08:09 Nasopharynx SARS-CoV-2 RdRp Gene Assay - Final Complete 02/11/20 07:50 Blood Blood Culture - Preliminary Resulted Laboratory Tests Test 02/12/20 03:00 Troponin I 0.038 ng/mL (0.000-0.056) Current Medications Medications (Trade) Dose Ordered Sig/Natalia Route PRN Reason Start Time Stop Time Status Last Admin Dose Admin Acetaminophen (Tylenol) 650 mg Q4H PRN GT Temp >100.5 02/11/20 13:30 03/12/20 13:29 Acetaminophen (Tylenol) 650 mg Q4H PRN GT Mild Pain (Pain Scale 1-3) 02/11/20 13:45 03/12/20 13:44 Clonidine HCl (Catapres Tab) 0.1 mg Q2H PRN GT For High Blood Pressure 02/11/20 16:30 05/11/20 16:29 Diltiazem HCl (Cardizem Tab) 60 mg EVERY 6 HOURS GT 02/11/20 18:00 03/12/20 17:59 02/12/20 05:13 Heparin Sodium (Porcine) (Heparin 5000 units/ml) 5,000 units EVERY 12 HOURS SUBQ 02/12/20 21:00 03/28/20 20:59 Levetiracetam (Keppra) 1,500 mg Q12HR GT 02/11/20 21:00 03/12/20 20:59 02/12/20 10:17 Pantoprazole (Protonix) 40 mg DAILY IVP 02/13/20 09:00 03/14/20 08:59 Piperacillin Sod/ Tazobactam Sod 3.375 gm/Sodium Chloride 110 ml @ 27.5 mls/hr EVERY 8 HOURS IVPB 02/11/20 14:00 02/16/20 13:59 02/12/20 05:12 Sodium Chloride 1,000 ml @ 55 mls/hr [id number] IV 02/11/20 13:45 03/12/20 13:44 02/12/20 06:57 Ulises Vasquez MD Feb 12, 2020 11:27
[2020-02-12 12:00] VITALS: BP 115/56
[2020-02-12] MEDS ORDERED: Vancomycin 1.25gm Premix q24h IVPB SCH (13:00)
[2020-02-12] MEDS ORDERED: NS 275ml ONE (13:14)
[2020-02-12] MEDS ORDERED: D5NS 1000ml IV ONE (13:14)
[2020-02-12] MEDS ORDERED: 1/2 NS 1000ml IV ONE (13:14)
[2020-02-12] MEDS ORDERED: Tubing IV Secondary IV ONE (13:14)
--- NOTE | 2020-02-12 14:14 | NUR ---
CASE MANAGEMENT: INITIAL REVIEW 02/11/2020 84 YO M WHITNEY FROM [facility] CC: TRACH MALFUNCTION PMHx: CVA, trach, PEG vent dependent SI:TRACH MALFUNCTION. PNA. HR 78 RR 33 B/P 208/120 SATS 99% ON T COLLAR LABS: WBC 18.4 CO2 33 GLU 191 LACTIC ACID 4.1 TBILI 1.8 DBILI 1 AST 43 BUN 5167 IS:NS BOLUS X2 CEFEPIME IV X1 VANCO IV X1 PATIENT ADMITTED TO SDU 02/11/2020 @ 0953 DCP: [facility] CONCURRENT REVIEW FOR 02/12/2020 SI:PNA VS: T 98.4 HR 75 RR 20 B/P 115/56 SATS 97% ON MECH VENT FIO2 40 LABS: NO LABS TODAY IS:NS @ 55 ML/HR CARDIZEM GT Q6H ZOSYN IV Q8H VANCO IV Q12H KEPPRA GT Q12H PROTONIX IV QD SDU DCP: [facility] PLAN OF CARE: Oxygen and pulmonary hygiene. Tracheostomy site is not to be addressed as it is clean. Await sputum culture.
--- NOTE | 2020-02-12 14:28 | NUR ---
INSURANCE CLINICALS AND REVIEW SENT TO [facility] FAX [phone]
--- NOTE | 2020-02-12 14:45 | Consultation ---
History of Present Illness General Date patient seen: Feb 12, 2020 Reason for Hospitalization: General Complaint Present Illness HPI 84-year-old male history of CVA, trach, PEG vent dependent presents with bleeding trach prior to arrival, cleared up with some suctioning, no known aggr avating relieving factors severity was severe lasting minutes to hours, patient apparently had a desaturation event as well that improved with suctioning patient presents for evaluation and treatment. Patient mated for the care management. Given tracheostomy bleeding surgery called to eval and assist with care. Patient seen, patient evaluated, chart reviewed. Allergies: Coded Allergies: No Known Allergies (Unverified , 02/11/20) COVID-19 Screening Contact w/high risk pt: No Experienced COVID-19 symptoms?: No Medication History Scheduled Bisacodyl* (Dulcolax*), 5 MG GT DAILY, (Reported) Levetiracetam (Keppra), 15 ML GT TWICE A DAY, (Reported) Losartan Potassium* (Losartan Potassium*), 50 MG GT DAILY, (Reported) Metoclopramide Hcl* (Reglan*), 10 MG GT THREE TIMES A DAY, (Reported) Metoprolol Succinate* (Metoprolol Succinate*), 50 MG GT DAILY, (Reported) Miscellaneous Medications Sennosides (Senokot), 8.6 MG GT, (Reported) Patient History Limited by: medical condition History Provided By: Medical Record, PMD Healthcare decision maker Resuscitation status Advanced Directive on File Past Medical/Surgical History Past Medical/Surgical History: (1) Sepsis (2) Aspiration pneumonia (3) Tracheostomy complication (4) Tracheostomy malfunction Review of Systems Review of Symptoms General ROS: no weight loss or fever Psychological ROS: no depression or mood changes, no memory loss Ophthalmic ROS: no visual changes or eye irritation ENT ROS: no nasal congestion, hearing loss, dizziness Allergy and Immunology ROS: no allergic symptoms or urticaria Hematological and Lymphatic ROS: no swollen glands, unusual bleeding or bruising Endocrine ROS: no polyuria, polydipsia, weight changes, temperature intolerance Respiratory ROS: no cough, shortness of breath, or wheezing Cardiovascular ROS: no chest pain or dyspnea on exertion Gastrointestinal ROS: denies abdominal pain, bright red blood in stool. Musculoskeletal ROS: no myalgias or arthralgias Neurological ROS: no TIA or stroke symptoms Dermatological ROS: no new or changing skin lesions, rashes or pruritis Limited given medical condition Physical Exam Physical Exam General appearance: alert, no distress, appears stated age Head: Normocephalic, without obvious abnormality, atraumatic Eyes: conjunctivae/corneas clear. PERRL, EOM's intact. Fundi benign Throat: Lips, mucosa, and tongue normal. Teeth and gums normal trach stable no issues Neck: supple, symmetrical, trachea midline, no adenopathy, thyroid: not en larged, symmetric, no tenderness/mass/nodules, no carotid bruit and no JVD trach no active bleeding noted deep suctioning performed Lungs: clear to auscultation bilaterally Heart: regular rate and rhythm, S1, S2 normal, no murmur, click, rub or gallop Abdomen: soft, non-tender. Bowel sounds normal. No masses, no organomegaly feeding tube Extremities: extremities normal, atraumatic, no cyanosis or edema Pulses: 2+ and symmetric Skin: Skin color, texture, turgor normal. No rashes or lesions Neurologic: Grossly normal Last 24 Hour Vital Signs Date Time Temp Pulse Resp B/P (MAP) Pulse Ox O2 Delivery O2 Flow Rate FiO2 02/12/20 12:57 75 115/56 02/12/20 12:00 98.4 75 20 115/56 (75) 97 02/12/20 12:00 Mechanical Ventilator 02/12/20 12:00 40 02/12/20 08:00 Mechanical Ventilator 02/12/20 08:00 99.1 69 21 125/59 (81) 100 02/12/20 08:00 40 02/12/20 07:48 66 02/12/20 07:00 78 18 45 02/12/20 05:30 63 15 40 02/12/20 05:13 72 129/59 02/12/20 04:00 Mechanical Ventilator 02/12/20 04:00 40 02/12/20 04:00 97.7 64 20 124/63 (83) 99 02/12/20 03:29 67 02/12/20 03:03 59 15 40 02/12/20 00:51 99.0 72 18 148/64 (92) 100 02/12/20 00:50 61 15 40 02/12/20 00:15 72 148/64 02/12/20 00:00 Mechanical Ventilator 02/11/20 23:28 61 02/11/20 22:52 60 18 40 02/11/20 20:49 67 21 40 02/11/20 20:00 98.1 63 14 127/58 (81) 96 02/11/20 20:00 Mechanical Ventilator 02/11/20 20:00 40 02/11/20 19:05 54 02/11/20 19:03 57 23 40 02/11/20 17:22 69 136/63 02/11/20 17:05 67 19 40 02/11/20 16:00 100.0 70 22 136/63 (87) 100 02/11/20 16:00 69 02/11/20 16:00 40 02/11/20 15:56 Mechanical Ventilator 02/11/20 15:15 69 20 40 l Intake and Output 02/11/20 02/12/20 18:59 06:59 Intake Total 330.0 ml 797.5 ml Output Total 701 ml 700 ml Balance -371.0 ml 97.5 ml Intake IV Total 330.0 ml 797.5 ml Output Urine Total 701 ml 700 ml Laboratory Tests Test 02/12/20 03:00 Troponin I 0.038 ng/mL (0.000-0.056) Height (Feet): 5 Height (Inches): 8.00 Weight (Pounds): 212 Medications Current Medications Medications (Trade) Dose Ordered Sig/Natalia Route PRN Reason Start Time Stop Time Status Last Admin Dose Admin Acetaminophen (Tylenol) 650 mg Q4H PRN GT Temp >100.5 02/11/20 13:30 03/12/20 13:29 Acetaminophen (Tylenol) 650 mg Q4H PRN GT Mild Pain (Pain Scale 1-3) 02/11/20 13:45 03/12/20 13:44 Clonidine HCl (Catapres Tab) 0.1 mg Q2H PRN GT For High Blood Pressure 02/11/20 16:30 05/11/20 16:29 Diltiazem HCl (Cardizem Tab) 60 mg EVERY 6 HOURS GT 02/11/20 18:00 03/12/20 17:59 02/12/20 12:57 Heparin Sodium (Porcine) (Heparin 5000 units/ml) 5,000 units EVERY 12 HOURS SUBQ 02/12/20 21:00 03/28/20 20:59 Levetiracetam (Keppra) 1,500 mg Q12HR GT 02/11/20 21:00 03/12/20 20:59 02/12/20 10:17 Pantoprazole (Protonix) 40 mg DAILY IVP 02/13/20 09:00 03/14/20 08:59 Piperacillin Sod/ Tazobactam Sod 3.375 gm/Sodium Chloride 110 ml @ 27.5 mls/hr EVERY 8 HOURS IVPB 02/11/20 14:00 02/16/20 13:59 02/12/20 13:36 Sodium Chloride 1,000 ml @ 55 mls/hr [id number] IV 02/11/20 13:45 03/12/20 13:44 02/12/20 06:57 Vancomycin HCl (Vanco pharmacy to dose) 1 ea DAILY PRN MISC Per rx protocol 02/12/20 11:30 03/13/20 11:29 Vancomycin HCl 1 gm/Sodium Chloride 275 ml @ 183.708 mls/hr Q12H IVPB 02/13/20 00:00 02/18/20 00:00 Assessment/Plan Problem List: (1) Sepsis ICD Codes: A41.9 - Sepsis, unspecified organism SNOMED: 26522281 Qualifiers: Qualified Codes: A41.9 - Sepsis, unspecified organism; R65.20 - Severe sepsis without septic shock; J96.01 - Acute respiratory failure with hypoxia (2) Aspiration pneumonia ICD Codes: J69.0 - Pneumonitis due to inhalation of food and vomit SNOMED: 495131351 Qualifiers: Qualified Codes: J69.0 - Pneumonitis due to inhalation of food and vomit (3) Tracheostomy complication Assessment & Plan: This 84-year-old male with bleeding from tracheostomy noted in facility. Since has had some residue within the suctioning. Trach evaluated bedside no active bleeding noted. No skin issues. Mild granulation tissue. Able to manipulate and function without problem. Deep suctioning performed no active bleeding identified. Potential isolated incident we will continue to monitor over the next 2 to 3 days to ensure no active bleeding or source of bleeding that requires intervention. Thank you Medina participate in patient's care There is infiltrate at the left lung base. There may be some pleural fluid. The heart size is normal. There is a tracheostomy. Impression: Left basilar infiltrate and possible pleural fluid Tracheostomy ICD Codes: J95.00 - Unspecified tracheostomy complication SNOMED: 23262382 Qualifiers: Qualified Codes: J95.00 - Unspecified tracheostomy complication (4) Tracheostomy malfunction ICD Codes: J95.03 - Malfunction of tracheostomy stoma SNOMED: 375932619 Yousuf Samayoa Feb 12, 2020 14:45
[2020-02-12 16:00] VITALS: BP 149/70
--- NOTE | 2020-02-12 17:06 | General Progress Note ---
Subjective ROS Limited/Unobtainable: Yes Allergies: Coded Allergies: No Known Allergies (Unverified , 02/11/20) Objective Last 24 Hour Vital Signs Date Time Temp Pulse Resp B/P (MAP) Pulse Ox O2 Delivery O2 Flow Rate FiO2 02/12/20 15:07 62 15 45 02/12/20 13:25 72 14 45 02/12/20 12:57 75 115/56 02/12/20 12:00 98.4 75 20 115/56 (75) 97 02/12/20 12:00 Mechanical Ventilator 02/12/20 12:00 40 02/12/20 11:20 67 20 45 02/12/20 09:20 70 16 45 02/12/20 08:00 Mechanical Ventilator 02/12/20 08:00 99.1 69 21 125/59 (81) 100 02/12/20 08:00 40 02/12/20 07:48 66 02/12/20 07:00 78 18 45 02/12/20 05:30 63 15 40 02/12/20 05:13 72 129/59 02/12/20 04:00 Mechanical Ventilator 02/12/20 04:00 40 02/12/20 04:00 97.7 64 20 124/63 (83) 99 02/12/20 03:29 67 02/12/20 03:03 59 15 40 02/12/20 00:51 99.0 72 18 148/64 (92) 100 02/12/20 00:50 61 15 40 02/12/20 00:15 72 148/64 02/12/20 00:00 Mechanical Ventilator 02/11/20 23:28 61 02/11/20 22:52 60 18 40 02/11/20 20:49 67 21 40 02/11/20 20:00 98.1 63 14 127/58 (81) 96 02/11/20 20:00 Mechanical Ventilator 02/11/20 20:00 40 02/11/20 19:05 54 02/11/20 19:03 57 23 40 02/11/20 17:22 69 136/63 Intake and Output 02/11/20 02/12/20 19:00 07:00 Intake Total 330.0 ml 797.5 ml Output Total 701 ml 700 ml Balance -371.0 ml 97.5 ml Intake IV Total 330.0 ml 797.5 ml Output Urine Total 701 ml 700 ml Laboratory Tests 02/12/20 03:00: Troponin I 0.038 Height (Feet): 5 Height (Inches): 8.00 Weight (Pounds): 212 Assessment/Plan Problem List: (1) Sepsis ICD Codes: A41.9 - Sepsis, unspecified organism SNOMED: 33997321 Qualifiers: Qualified Codes: A41.9 - Sepsis, unspecified organism; R65.20 - Severe sepsis without septic shock; J96.01 - Acute respiratory failure with hypoxia (2) Aspiration pneumonia ICD Codes: J69.0 - Pneumonitis due to inhalation of food and vomit SNOMED: 615398222 Qualifiers: Qualified Codes: J69.0 - Pneumonitis due to inhalation of food and vomit (3) Tracheostomy complication ICD Codes: J95.00 - Unspecified tracheostomy complication SNOMED: 15028458 Qualifiers: Qualified Codes: J95.00 - Unspecified tracheostomy complication (4) Tracheostomy malfunction ICD Codes: J95.03 - Malfunction of tracheostomy stoma SNOMED: 352962620 Status: progressing Assessment/Plan: afebrile nac sepsis asp pna abx per id reviewed chart Oral Crawford MD Feb 12, 2020 17:05
--- NOTE | 2020-02-12 18:54 | Cardiac Electrophysiology PN ---
Assessment/Plan Assessment/Plan 1. Atrial fibrillation with rapid ventricular response. On Cardizem 60 mg q.6h. Off anticoagulation for tracheal bleed. In SR with first degree AVB 2. Accelerated hypertension. Off losartan 50 mg daily and on Cardizem 3. Bleeding from the trach site. Further evaluation by Surgery. 4. Ventilator-respiratory failure. Further evaluation by Dr. Otero. 5. Dysphagia, status post PEG placement. 6. Elevated white count and sepsis, on IV antibiotic. Subjective Subjective BP better but trach still bleeding. Fio2 45% and PEEP 5 Objective Last 24 Hour Vital Signs Date Time Temp Pulse Resp B/P (MAP) Pulse Ox O2 Delivery O2 Flow Rate FiO2 02/12/20 18:43 63 149/70 02/12/20 17:25 63 12 45 02/12/20 16:00 98.4 83 20 149/70 (96) 100 02/12/20 16:00 40 02/12/20 16:00 66 02/12/20 15:07 62 15 45 02/12/20 13:25 72 14 45 02/12/20 12:57 75 115/56 02/12/20 12:00 98.4 75 20 115/56 (75) 97 02/12/20 12:00 Mechanical Ventilator 02/12/20 12:00 71 02/12/20 12:00 40 02/12/20 11:20 67 20 45 02/12/20 09:20 70 16 45 02/12/20 08:00 Mechanical Ventilator 02/12/20 08:00 99.1 69 21 125/59 (81) 100 02/12/20 08:00 40 02/12/20 07:48 66 02/12/20 07:00 78 18 45 02/12/20 05:30 63 15 40 02/12/20 05:13 72 129/59 02/12/20 04:00 Mechanical Ventilator 02/12/20 04:00 40 02/12/20 04:00 97.7 64 20 124/63 (83) 99 02/12/20 03:29 67 02/12/20 03:03 59 15 40 02/12/20 00:51 99.0 72 18 148/64 (92) 100 02/12/20 00:50 61 15 40 02/12/20 00:15 72 148/64 02/12/20 00:00 Mechanical Ventilator 02/11/20 23:28 61 02/11/20 22:52 60 18 40 02/11/20 20:49 67 21 40 02/11/20 20:00 98.1 63 14 127/58 (81) 96 02/11/20 20:00 Mechanical Ventilator 02/11/20 20:00 40 02/11/20 19:05 54 02/11/20 19:03 57 23 40 Intake and Output 02/11/20 02/12/20 19:00 07:00 Intake Total 330.0 ml 797.5 ml Output Total 701 ml 700 ml Balance -371.0 ml 97.5 ml Intake IV Total 330.0 ml 797.5 ml Output Urine Total 701 ml 700 ml Laboratory Tests Test 02/12/20 03:00 Troponin I 0.038 ng/mL (0.000-0.056) Microbiology Date/Time Source Procedure Growth Status 02/11/20 13:40 Sputum Gram Stain - Final Resulted 02/11/20 13:40 Sputum Sputum Culture Pending Resulted 02/11/20 08:10 Rectum Received 02/11/20 08:09 Nasopharynx SARS-CoV-2 RdRp Gene Assay - Final Complete 02/11/20 08:09 Blood Blood Culture - Preliminary Resulted 02/11/20 07:50 Blood Blood Culture - Preliminary Resulted Objective HEAD AND NECK: no JVD. Status post tracheostomy that still bleeding . LUNGS: Coarse rhonchi. CARDIOVASCULAR: Shows irregular S1 and S2 with no gallop. ABDOMEN: Soft. Status post G-tube. EXTREMITIES: No pitting edema. Liang Barry MD Feb 12, 2020 18:54
--- NOTE | 2020-02-12 19:20 | NUR ---
NURSE NOTES: received pt from Brijesh ALCARAZ., pt is awake and resting on the bed. AO x 1 at this time,Urdu speaker. vent in place, P7 AC 12 TV 500 Fio2 40 P5. no SOB noted. O2sat is at 98%. pt is NPO , Gtube site intact clean, and patent. right AC 20G 1/2 NS 55cc/hr is running, IV site intact, clean, and patent. aggarwal cath is draining well with gravity no bleeding noted at this time. side rails are padded per seizure precaution. call light within reach. will continue to monitor pt with plan of care. bed at the lowest positioned, alarmed, and locked.
--- NOTE | 2020-02-12 19:20 | NUR ---
HAND-OFF: Report given to .SEAMUS ALCARAZ.
[2020-02-12 20:00] VITALS: BP 103/63
[2020-02-12] MEDS: Heparin 5000 units/ml inj SUBQ SCH (21:00)
--- NOTE | 2020-02-12 21:00 | NUR ---
NURSE NOTES: physical assessment unable to chart in the computer, so physical assessment done in paper chart. please see paper chart Addendum: 02/13/20 at 0612 by TATIANA MARCUS RN dayna benjamin [id number]
--- NOTE | 2020-02-12 23:58 | NUR ---
NURSE NOTES: A.fib noted, pt has hx of A.fib. pt is asymptomatic at this time. will continue to monitor pt. call light within reach.
[2020-02-13] VITALS: BP 138/64
--- NOTE | 2020-02-13 | NUR ---
NURSE NOTES: physical assessment unable to chart in the computer, so physical assessment done in paper chart. please see paper chart
[2020-02-13] MEDS: dilTIAZem HCl 60mg tab GT SCH ×4 (00:33→18:11)
[2020-02-13] MEDS: Vancomycin 1 GM in NS 275 ML IVPB SCH ×2 (00:33→11:11)
--- NOTE | 2020-02-13 01:32 | NUR ---
NURSE NOTES: collected sputum, will send to lab. no SOB noted, O2sat is at 100%. call light within reach. will continue to monitor pt.
--- NOTE | 2020-02-13 02:00 | NUR ---
NURSE NOTES: cleaned pt, oral care provided, new gown provided. pt little pink sputum noted. no SOB at this time. call light within reach. will continue to monitor pt.
[2020-02-13 04:00] VITALS: BP 136/75
--- NOTE | 2020-02-13 04:00 | NUR ---
NURSE NOTES: physical assessment unable to chart in the computer, so physical assessment done in paper chart. please see paper chart
[2020-02-13 05:03] LABS: HEMATOCRIT 25.1 % (42.0-52.0); HEMOGLOBIN 7.4 G/DL (14.2-18.0); MEAN CORPUSCULAR VOLUME 105 FL (80-99); PLATELET COUNT 225 K/UL (150-450); RED BLOOD COUNT 2.39 M/UL (4.70-6.10); RED CELL DISTRIBUTION WIDTH 18.5 % (11.6-14.8); WHITE BLOOD COUNT 9.9 K/UL (4.8-10.8)
[2020-02-13] MEDS: Piperacillin/Tazobactam 3.375 GM in NS 110 ML IVPB SCH ×3 (05:45→21:07)
--- NOTE | 2020-02-13 06:41 | NUR ---
NURSE NOTES: notified Dr. Gordon regarding low hgb 7.4. will wait for call back.
--- NOTE | 2020-02-13 06:46 | NUR ---
NURSE NOTES: per Dr. Gordon " I will let Dr. Mata know" regarding low hgb. noted and will continue to monitor pt
--- NOTE | 2020-02-13 06:54 | NUR ---
NURSE NOTES: left message to Dr. Barry regarding pt A. Fib and A.flutter from 23:58 (02.12.2020) to 02:57 (02.13.2020). and now pt is NSR and asymptomatic. call light within reach. will continue to monitor pt.
--- NOTE | 2020-02-13 07:16 | NUR ---
NURSE HAND-OFF REPORT: Important Events on Shift: event of A.Fib and A.flutter, please follow up with . and hgb 7.4 Patient Status: stable Diet: NPO Pending Orders: n/a Pending Results/Labs:n/a Pending MD notification:Dr. Barry regarding event of A.fib and A.flutter, and Dr. Mata regaring hgb 7.4 Latest Vital Signs: Temperature 97.3 , Pulse 70 , B/P 138 /64 , Respiratory Rate 13 , O2 SAT 97 , Mechanical Ventilator, O2 Flow Rate . Vital Sign Comment: stable EKG Rhythm: Sinus Rhythm now but event of A.fib and A. Flutter Rhythm change?: y Notified?: y Dr.Toluie RICARDO Response: no new order yet Latest Wall Fall Score: 35 Fall Risk: Medium Risk Safety Measures: Call light Within Reach, Bed Alarm Zone 3, Side Rails Side Rails x3, Bed position Low and Locked. Fall Precautions: Yellow Socks Yellow Gown Door Sign Patient Fall Education Report given to Arnold ALCARAZ., Addendum: 02/13/20 at 0725 by TATIANA MARCUS RN pending labs: sputum, and micro swabs.
--- NOTE | 2020-02-13 07:17 | NUR ---
NURSE NOTES: Received patient from Pushpa Sheldon under the care of Dr. Crawford for the admitiing dx. of Trach malfunction. Patient noted full code and NKA. Standard precaution observed and maintained at all times. Patient is alert and oriented to self. Patient tolerating vent settings well, with no sign of acute distress or discomfort noted. Will continue to monitor.
[2020-02-13 08:00] VITALS: BP 136/73
--- NOTE | 2020-02-13 08:30 | NUR ---
NURSE NOTES: Dr. Edgar made aware of patient's Hgb level, with order for 1 PRBC. Order noted and carried out. Patient in stable comndition. No apparent distress noted. Will continue to monitor.
[2020-02-13] MEDS: Heparin 5000 units/ml inj SUBQ SCH ×2 (09:00→20:06)
--- NOTE | 2020-02-13 09:10 | Consultation ---
History of Present Illness General Chief Complaint: General Complaint Present Illness Allergies: Coded Allergies: No Known Allergies (Unverified , 02/11/20) Medication History Scheduled Bisacodyl* (Dulcolax*), 5 MG GT DAILY, (Reported) Levetiracetam (Keppra), 15 ML GT TWICE A DAY, (Reported) Losartan Potassium* (Losartan Potassium*), 50 MG GT DAILY, (Reported) Metoclopramide Hcl* (Reglan*), 10 MG GT THREE TIMES A DAY, (Reported) Metoprolol Succinate* (Metoprolol Succinate*), 50 MG GT DAILY, (Reported) Miscellaneous Medications Sennosides (Senokot), 8.6 MG GT, (Reported) Patient History Healthcare decision maker Resuscitation status Advanced Directive on File Physical Exam Last 24 Hour Vital Signs Date Time Temp Pulse Resp B/P (MAP) Pulse Ox O2 Delivery O2 Flow Rate FiO2 02/13/20 05:43 70 138/64 02/13/20 05:02 61 13 45 02/13/20 04:00 97.3 71 20 136/75 (95) 97 02/13/20 04:00 63 02/13/20 04:00 40 02/13/20 03:04 61 14 45 02/13/20 01:21 65 14 45 02/13/20 00:33 77 138/64 02/13/20 00:00 97.9 111 17 138/64 (88) 100 02/12/20 23:58 107 02/12/20 23:04 91 22 45 02/12/20 21:18 118 17 45 02/12/20 20:00 96.6 97 20 103/63 (76) 100 02/12/20 20:00 40 02/12/20 19:47 70 17 45 02/12/20 19:42 65 02/12/20 18:43 63 149/70 02/12/20 17:25 63 12 45 02/12/20 16:00 98.4 83 20 149/70 (96) 100 02/12/20 16:00 40 02/12/20 16:00 66 02/12/20 15:07 62 15 45 02/12/20 13:25 72 14 45 02/12/20 12:57 75 115/56 02/12/20 12:00 98.4 75 20 115/56 (75) 97 02/12/20 12:00 Mechanical Ventilator 02/12/20 12:00 71 02/12/20 12:00 40 02/12/20 11:20 67 20 45 02/12/20 09:20 70 16 45 Intake and Output 02/12/20 02/13/20 19:00 07:00 Intake Total 250 ml 698.958 ml Output Total 500 ml 500 ml Balance -250 ml 198.958 ml Intake Free Water 250 ml IV Total 698.958 ml Output Urine Total 500 ml 500 ml Laboratory Tests Test 02/13/20 03:10 White Blood Count 9.9 K/UL (4.8-10.8) Red Blood Count 2.39 M/UL (4.70-6.10) L Hemoglobin 7.4 G/DL (14.2-18.0) L Hematocrit 25.1 % (42.0-52.0) L Mean Corpuscular Volume 105 FL (80-99) H Mean Corpuscular Hemoglobin 31.0 PG (27.0-31.0) Mean Corpuscular Hemoglobin Concent 29.5 G/DL (32.0-36.0) L Red Cell Distribution Width 18.5 % (11.6-14.8) H Platelet Count 225 K/UL (150-450) Mean Platelet Volume 7.2 FL (6.5-10.1) Neutrophils (%) (Auto) % (45.0-75.0) Lymphocytes (%) (Auto) % (20.0-45.0) Monocytes (%) (Auto) % (1.0-10.0) Eosinophils (%) (Auto) % (0.0-3.0) Basophils (%) (Auto) % (0.0-2.0) Neutrophils % (Manual) Pending Lymphocytes % (Manual) Pending Platelet Estimate Pending Platelet Morphology Pending Height (Feet): 5 Height (Inches): 8.00 Weight (Pounds): 212 Medications Current Medications Medications (Trade) Dose Ordered Sig/Natalia Route PRN Reason Start Time Stop Time Status Last Admin Dose Admin Acetaminophen (Tylenol) 650 mg Q4H PRN GT Temp >100.5 02/11/20 13:30 03/12/20 13:29 Acetaminophen (Tylenol) 650 mg Q4H PRN GT Mild Pain (Pain Scale 1-3) 02/11/20 13:45 03/12/20 13:44 Clonidine HCl (Catapres Tab) 0.1 mg Q2H PRN GT For High Blood Pressure 02/11/20 16:30 05/11/20 16:29 Diltiazem HCl (Cardizem Tab) 60 mg EVERY 6 HOURS GT 02/11/20 18:00 03/12/20 17:59 02/13/20 05:43 Heparin Sodium (Porcine) (Heparin 5000 units/ml) 5,000 units EVERY 12 HOURS SUBQ 02/12/20 21:00 03/28/20 20:59 Levetiracetam (Keppra) 1,500 mg Q12HR GT 02/11/20 21:00 03/12/20 20:59 02/12/20 21:09 Pantoprazole (Protonix) 40 mg DAILY IVP 02/13/20 09:00 03/14/20 08:59 Piperacillin Sod/ Tazobactam Sod 3.375 gm/Sodium Chloride 110 ml @ 27.5 mls/hr EVERY 8 HOURS IVPB 02/11/20 14:00 02/16/20 13:59 02/13/20 05:45 Sodium Chloride 1,000 ml @ 55 mls/hr [id number] IV 02/11/20 13:45 03/12/20 13:44 02/13/20 01:11 Vancomycin HCl (Vanco pharmacy to dose) 1 ea DAILY PRN MISC Per rx protocol 02/12/20 11:30 03/13/20 11:29 Vancomycin HCl 1 gm/Sodium Chloride 275 ml @ 183.708 mls/hr Q12H IVPB 02/13/20 00:00 02/18/20 00:00 02/13/20 00:33 Assessment/Plan Assessment/Plan: Hematology Consultation RETre RICARDO: Oral Raphael RFC: Low hgb DOS: 02/13/2020 HPI 84-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 Patient mated for the care management. Given tracheostomy bleeding surgery called to eval and assist with care. Patient seen, patient evaluated, chart reviewed. Heme was consulted for further eval and rx, has had a rapid drop in hgb/hct. Allergies: No Known Allergies (Unverified , 02/11/20) COVID-19 Screening Contact w/high risk pt: No Experienced COVID-19 symptoms?: No Medication History Scheduled Bisacodyl* (Dulcolax*), 5 MG GT DAILY, (Reported) Levetiracetam (Keppra), 15 ML GT TWICE A DAY, (Reported) Losartan Potassium* (Losartan Potassium*), 50 MG GT DAILY, (Reported) Metoclopramide Hcl* (Reglan*), 10 MG GT THREE TIMES A DAY, (Reported) Metoprolol Succinate* (Metoprolol Succinate*), 50 MG GT DAILY, (Reported) Miscellaneous Medications Sennosides (Senokot), 8.6 MG GT, (Reported) Patient History Limited by: medical condition History Provided By: Medical Record, PMD Healthcare decision maker Resuscitation status Advanced Directive on File Past Medical/Surgical History: (1) Sepsis (2) Aspiration pneumonia (3) Tracheostomy complication (4) Tracheostomy malfunction Review of Systems General: no weight loss or fever Psychological: no depression or mood changes, no memory loss Ophthalmic: no visual changes or eye irritation ENT: no nasal congestion, hearing loss, dizziness Allergy and Immunology: no allergic symptoms or urticaria Endocrine: no polyuria, polydipsia, weight changes Respiratory: no cough, shortness of breath, or wheezing Cardiovascular: no chest pain or dyspnea on exertion Gastrointestinal: denies abdominal pain, bright red blood in stool Musculoskeletal: no myalgias or arthralgias Neurological: no TIA or stroke symptoms Dermatological no new or changing skin lesions, rashes or pruritis Limited given medical condition Physical Exam General appearance: alert, no distress, appears stated age HEENT: Normocephalic, without obvious abnormality, atraumatic, Lips, mucosa, and tongue normal. Teeth and gums normal trach + Lungs: clear to auscultation bilaterally Heart: regular rate and rhythm, S1, S2 normal, no murmur, click, rub or gallop Abdomen: soft, non-tender. Bowel sounds normal. No masses, ++ feeding tube Extremities: extremities normal, atraumatic, no cyanosis or edema Pulses: 2+ and symmetric Skin: Skin color, texture, turgor normal. No rashes or lesions Neurologic: Grossly normal Labs reviewed Imaging: reviewed IMPRESSION/RECS: 1. Leukcytosis with underlying Left lung pneumonia. --> recommend ABX vanc/zosyn --> as per id --> wbc 18-->9 --> smear has been reviewed 2. Anemia due to chronic disease v iron deficiency --> anemia panel ordered --> transfuse prn hgb goal >7 --> occult blood 3. Lactic acidemia. --> likely due to infection 4. Tracheal bleeding. --> per surgery 5. Chronic tracheostomy. 6. Chronic vent dependence. 7. Chronic G-tube. 8. Previous CVA. 9. Dvt ppx heparin sq Appreciate consultation and dW Bryce Gardner MD Feb 13, 2020 09:10
[2020-02-13] MEDS ORDERED: VITAMIN A & D113 GM TP (09:38)
[2020-02-13] MEDS ORDERED: MULTIVITAMINS1 EAC2 GT (09:38)
[2020-02-13] MEDS ORDERED: SANTYL 250 UNIT/GM TOPIC (09:38)
[2020-02-13] MEDS ORDERED: METOPROLOL TART50 MG GT (09:40)
[2020-02-13] MEDS: levETIRAcetam 500mg/5ml Liquid GT SCH ×2 (09:48→20:06)
[2020-02-13] MEDS: Pantoprazole Inj IVP SCH (09:48)
--- NOTE | 2020-02-13 09:48 | NUR ---
CASE MANAGEMENT: REVIEW 02/13/2020 SI:PNA. BLEEDING FROM TRACH STOMA. VS: T 97.3 HR 63 RR 20 B/P 136/75 SATS 97% ON MECH VENT FIO2 45 HGB 7.4 HCT 25.1 IS:NS @ 55 ML/HR CARDIZEM GT Q6H ZOSYN IV Q8H VANCO IV Q12H KEPPRA GT Q12H PROTONIX IV QD SDU DCP: [facility] PLAN OF CARE: TRANSFUSE
[2020-02-13] MEDS ORDERED: NS 275ml ONE ×2 (09:49→16:37)
--- NOTE | 2020-02-13 10:00 | NUR ---
Patient asleep but easily arousable. Tolerating vent settings well, with no signs of acute distress or discomfort noted. Patient still on NPO status but able to tolerate meds given well. Noted with sanguineous respiratory discharge. Airway kept clean and patent at all times. O2 saturation >96% on vent setting. Patient consent for blood transfusion obtained from patient's daughter. Will continue to monitor.
--- NOTE | 2020-02-13 10:35 | Pulmonology Progress Note ---
Subjective ROS Limited/Unobtainable: Yes Interval Events: No peter-tracheal bleeding; still has red tinged endo-tracheal aspirate Constitutional: Reports: no symptoms; Denies: fever HEENT: Repors: no symptoms Respiratory: Reports: no symptoms Cardiovascular: Reports: no symptoms Gastrointestinal/Abdominal: Reports: no symptoms Allergies: Coded Allergies: No Known Allergies (Unverified , 02/11/20) Objective Last 24 Hour Vital Signs Date Time Temp Pulse Resp B/P (MAP) Pulse Ox O2 Delivery O2 Flow Rate FiO2 02/13/20 08:00 97.9 68 20 136/73 (94) 100 02/13/20 08:00 40 02/13/20 08:00 67 02/13/20 07:10 76 14 45 02/13/20 05:43 70 138/64 02/13/20 05:02 61 13 45 02/13/20 04:00 97.3 71 20 136/75 (95) 97 02/13/20 04:00 63 02/13/20 04:00 40 02/13/20 03:04 61 14 45 02/13/20 01:21 65 14 45 02/13/20 00:33 77 138/64 02/13/20 00:00 97.9 111 17 138/64 (88) 100 02/12/20 23:58 107 02/12/20 23:04 91 22 45 02/12/20 21:18 118 17 45 02/12/20 20:00 96.6 97 20 103/63 (76) 100 02/12/20 20:00 40 02/12/20 19:47 70 17 45 02/12/20 19:42 65 02/12/20 18:43 63 149/70 02/12/20 17:25 63 12 45 02/12/20 16:00 98.4 83 20 149/70 (96) 100 02/12/20 16:00 40 02/12/20 16:00 66 02/12/20 15:07 62 15 45 02/12/20 13:25 72 14 45 02/12/20 12:57 75 115/56 02/12/20 12:00 98.4 75 20 115/56 (75) 97 02/12/20 12:00 Mechanical Ventilator 02/12/20 12:00 71 02/12/20 12:00 40 02/12/20 11:20 67 20 45 Intake and Output 02/12/20 02/13/20 19:00 07:00 Intake Total 250 ml 698.958 ml Output Total 500 ml 500 ml Balance -250 ml 198.958 ml Intake Free Water 250 ml IV Total 698.958 ml Output Urine Total 500 ml 500 ml General Appearance: no acute distress HEENT: normocephalic Respiratory: chest wall non-tender, lungs clear Cardiovascular: normal peripheral pulses Abdomen: normal bowel sounds Microbiology Date/Time Source Procedure Growth Status 02/11/20 13:40 Sputum Gram Stain - Final Resulted 02/11/20 13:40 Sputum Culture - Preliminary Gram Negative Bacillus 1 Resulted 02/11/20 08:10 Rectum - Final NO CARBAPENEM-RESISTANT ENTEROBACTERI... Complete 02/11/20 08:10 Rectum VRE Culture - Final Enterococcus Faecalis - Vre Complete 02/11/20 08:10 Nasal Nares MRSA Culture - Final NO METHICILLIN RESISTANT STAPH AUREUS... Complete 02/11/20 08:09 Nasopharynx SARS-CoV-2 RdRp Gene Assay - Final Complete 02/11/20 08:09 Blood Blood Culture - Preliminary Staphylococcus Sp Coag Neg Resulted 02/11/20 07:50 Blood Blood Culture - Preliminary Staphylococcus Aureus Resulted Laboratory Tests 02/13/20 03:10: White Blood Count 9.9, Red Blood Count 2.39L, Hemoglobin 7.4L, Hematocrit 25.1L, Mean Corpuscular Volume 105H, Mean Corpuscular Hemoglobin 31.0, Mean Corpuscular Hemoglobin Concent 29.5L, Red Cell Distribution Width 18.5H, Platelet Count 225, Mean Platelet Volume 7.2, Neutrophils (%) (Auto) , Lymphocytes (%) (Auto) , Monocytes (%) (Auto) , Eosinophils (%) (Auto) , Basophils (%) (Auto) , Neutrophils % (Manual) [Pending], Lymphocytes % (Manual) [Pending], Platelet Estimate [Pending], Platelet Morphology [Pending] Current Medications Medications (Trade) Dose Ordered Sig/Natalia Route PRN Reason Start Time Stop Time Status Last Admin Dose Admin Acetaminophen (Tylenol) 650 mg Q4H PRN GT Temp >100.5 02/11/20 13:30 03/12/20 13:29 Acetaminophen (Tylenol) 650 mg Q4H PRN GT Mild Pain (Pain Scale 1-3) 02/11/20 13:45 03/12/20 13:44 Clonidine HCl (Catapres Tab) 0.1 mg Q2H PRN GT For High Blood Pressure 02/11/20 16:30 05/11/20 16:29 Diltiazem HCl (Cardizem Tab) 60 mg EVERY 6 HOURS GT 02/11/20 18:00 03/12/20 17:59 02/13/20 05:43 Heparin Sodium (Porcine) (Heparin 5000 units/ml) 5,000 units EVERY 12 HOURS SUBQ 02/12/20 21:00 03/28/20 20:59 Levetiracetam (Keppra) 1,500 mg Q12HR GT 02/11/20 21:00 03/12/20 20:59 02/13/20 09:48 Pantoprazole (Protonix) 40 mg DAILY IVP 02/13/20 09:00 03/14/20 08:59 02/13/20 09:48 Piperacillin Sod/ Tazobactam Sod 3.375 gm/Sodium Chloride 110 ml @ 27.5 mls/hr EVERY 8 HOURS IVPB 02/11/20 14:00 02/16/20 13:59 02/13/20 05:45 Sodium Chloride 1,000 ml @ 55 mls/hr [id number] IV 02/11/20 13:45 03/12/20 13:44 02/13/20 01:11 Vancomycin HCl (Vanco pharmacy to dose) 1 ea DAILY PRN MISC Per rx protocol 02/12/20 11:30 03/13/20 11:29 Vancomycin HCl 1 gm/Sodium Chloride 275 ml @ 183.708 mls/hr Q12H IVPB 02/13/20 00:00 02/18/20 00:00 02/13/20 00:33 Assessment/Plan Assessment/Plan IMPRESSION: 1. Left lung pneumonia. 2. Leukocytosis. 3. Lactic acidemia. 4. Endo-tracheal bleeding/hemoptysis 5. Chronic tracheostomy. 6. Chronic vent dependence. 7. Chronic G-tube. 8. Previous CVA. DISCUSSION: Continue broad-spectrum antibiotics. Oxygen and pulmonary hygiene. Tracheostomy site is clean Await sputum culture. I will follow carefully. DVT and GI prophylaxes. Kandy Golden Omar Syed MD Feb 13, 2020 10:35
[2020-02-13 12:00] VITALS: BP 149/82
--- NOTE | 2020-02-13 12:03 | Infectious Diseases Prog Note ---
Assessment/Plan Assessment/Plan IMPRESSION: Sepsis with Staph aureus Gram negative pneumonia, Tracheostomy complication with bleeding. Anemia Ventilator-dependent respiratory failure. Elevated bilirubin. VRE carrier RECOMMENDATIONS: Continue IV Zosyn.&IV Vancomycin TTE We will follow up the cultures. Subjective ROS Limited/Unobtainable: Yes Constitutional: Denies: fever Allergies: Coded Allergies: No Known Allergies (Unverified , 02/11/20) Objective Last 24 Hour Vital Signs Date Time Temp Pulse Resp B/P (MAP) Pulse Ox O2 Delivery O2 Flow Rate FiO2 02/13/20 11:45 65 14 45 02/13/20 09:30 66 12 45 02/13/20 08:00 97.9 68 20 136/73 (94) 100 02/13/20 08:00 40 02/13/20 08:00 67 02/13/20 07:10 76 14 45 02/13/20 05:43 70 138/64 02/13/20 05:02 61 13 45 02/13/20 04:00 97.3 71 20 136/75 (95) 97 02/13/20 04:00 63 02/13/20 04:00 40 02/13/20 03:04 61 14 45 02/13/20 01:21 65 14 45 02/13/20 00:33 77 138/64 02/13/20 00:00 97.9 111 17 138/64 (88) 100 02/12/20 23:58 107 02/12/20 23:04 91 22 45 02/12/20 21:18 118 17 45 02/12/20 20:00 96.6 97 20 103/63 (76) 100 02/12/20 20:00 40 02/12/20 19:47 70 17 45 02/12/20 19:42 65 02/12/20 18:43 63 149/70 02/12/20 17:25 63 12 45 02/12/20 16:00 98.4 83 20 149/70 (96) 100 02/12/20 16:00 40 02/12/20 16:00 66 02/12/20 15:07 62 15 45 02/12/20 13:25 72 14 45 02/12/20 12:57 75 115/56 02/12/20 12:00 98.4 75 20 115/56 (75) 97 02/12/20 12:00 Mechanical Ventilator 02/12/20 12:00 71 02/12/20 12:00 40 Height (Feet): 5 Height (Inches): 8.00 Weight (Pounds): 212 HEENT: status post trach Respiratory/Chest: other - on ventilator, coarse sounds Cardiovascular: normal rate Abdomen: soft, non tender, other - GT feeding Extremities: other - decreased edema Neurologic/Psychiatric: aphasia Microbiology Date/Time Source Procedure Growth Status 02/11/20 13:40 Sputum Gram Stain - Final Resulted 02/11/20 13:40 Sputum Culture - Preliminary Gram Negative Bacillus 1 Resulted 02/11/20 08:10 Rectum - Final NO CARBAPENEM-RESISTANT ENTEROBACTERI... Complete 02/11/20 08:10 Rectum VRE Culture - Final Enterococcus Faecalis - Vre Complete 02/11/20 08:10 Nasal Nares MRSA Culture - Final NO METHICILLIN RESISTANT STAPH AUREUS... Complete 02/11/20 08:09 Nasopharynx SARS-CoV-2 RdRp Gene Assay - Final Complete 02/11/20 08:09 Blood Blood Culture - Preliminary Staphylococcus Sp Coag Neg Resulted 02/11/20 07:50 Blood Blood Culture - Preliminary Staphylococcus Aureus Resulted Laboratory Tests Test 02/13/20 03:10 White Blood Count 9.9 K/UL (4.8-10.8) Red Blood Count 2.39 M/UL (4.70-6.10) L Hemoglobin 7.4 G/DL (14.2-18.0) L Hematocrit 25.1 % (42.0-52.0) L Mean Corpuscular Volume 105 FL (80-99) H Mean Corpuscular Hemoglobin 31.0 PG (27.0-31.0) Mean Corpuscular Hemoglobin Concent 29.5 G/DL (32.0-36.0) L Red Cell Distribution Width 18.5 % (11.6-14.8) H Platelet Count 225 K/UL (150-450) Mean Platelet Volume 7.2 FL (6.5-10.1) Neutrophils (%) (Auto) % (45.0-75.0) Lymphocytes (%) (Auto) % (20.0-45.0) Monocytes (%) (Auto) % (1.0-10.0) Eosinophils (%) (Auto) % (0.0-3.0) Basophils (%) (Auto) % (0.0-2.0) Differential Total Cells Counted 100 Neutrophils % (Manual) 83 % (45-75) H Lymphocytes % (Manual) 3 % (20-45) L Monocytes % (Manual) 9 % (1-10) Eosinophils % (Manual) 5 % (0-3) H Basophils % (Manual) 0 % (0-2) Band Neutrophils 0 % (0-8) Platelet Estimate Adequate Platelet Morphology Normal Polychromasia 1+ Hypochromasia 1+ Anisocytosis 2+ Macrocytosis 1+ Current Medications Medications (Trade) Dose Ordered Sig/Natalia Route PRN Reason Start Time Stop Time Status Last Admin Dose Admin Acetaminophen (Tylenol) 650 mg Q4H PRN GT Temp >100.5 02/11/20 13:30 03/12/20 13:29 Acetaminophen (Tylenol) 650 mg Q4H PRN GT Mild Pain (Pain Scale 1-3) 02/11/20 13:45 03/12/20 13:44 Clonidine HCl (Catapres Tab) 0.1 mg Q2H PRN GT For High Blood Pressure 02/11/20 16:30 05/11/20 16:29 Diltiazem HCl (Cardizem Tab) 60 mg EVERY 6 HOURS GT 02/11/20 18:00 03/12/20 17:59 02/13/20 05:43 Heparin Sodium (Porcine) (Heparin 5000 units/ml) 5,000 units EVERY 12 HOURS SUBQ 02/12/20 21:00 03/28/20 20:59 Levetiracetam (Keppra) 1,500 mg Q12HR GT 02/11/20 21:00 03/12/20 20:59 02/13/20 09:48 Pantoprazole (Protonix) 40 mg DAILY IVP 02/13/20 09:00 03/14/20 08:59 02/13/20 09:48 Piperacillin Sod/ Tazobactam Sod 3.375 gm/Sodium Chloride 110 ml @ 27.5 mls/hr EVERY 8 HOURS IVPB 02/11/20 14:00 02/16/20 13:59 02/13/20 05:45 Sodium Chloride 1,000 ml @ 55 mls/hr [id number] IV 02/11/20 13:45 03/12/20 13:44 02/13/20 01:11 Vancomycin HCl (Vanco pharmacy to dose) 1 ea DAILY PRN MISC Per rx protocol 02/12/20 11:30 03/13/20 11:29 Vancomycin HCl 1 gm/Sodium Chloride 275 ml @ 183.708 mls/hr Q12H IVPB 02/13/20 00:00 02/18/20 00:00 02/13/20 11:11 Ulises Vasquez MD Feb 13, 2020 12:03
[2020-02-13 12:16] LABS: INR 1.1 (0.9-1.1)
[2020-02-13 12:41] LABS: FERRITIN 235 NG/ML (8-388); LACTATE DEHYDROGENASE 293 U/L (81-234)
[2020-02-13 13:02] LABS: % IRON SATURATION 12 % (15-50); IRON 27 ug/dL (50-175); TOTAL IRON BINDING CAPACITY 217 ug/dL (250-450)
--- NOTE | 2020-02-13 13:07 | Cardiac Electrophysiology PN ---
Assessment/Plan Assessment/Plan 1. Atrial fibrillation with rapid ventricular response. On Cardizem 60 mg q.6h. Off anticoagulation for tracheal bleed. In SR with first degree AVB 2. Accelerated hypertension. Off losartan 50 mg daily and on Cardizem 3. Bleeding from the trach site. Further evaluation by Surgery. 4. Ventilator-respiratory failure. Further evaluation by Dr. Otero. 5. Dysphagia, status post PEG placement. 6. Elevated white count and sepsis, on IV antibiotic. Subjective Subjective BP better and trach minimal bleeding. Fio2 45% and PEEP 5. 1 unit PRBC Objective Last 24 Hour Vital Signs Date Time Temp Pulse Resp B/P (MAP) Pulse Ox O2 Delivery O2 Flow Rate FiO2 02/13/20 12:20 68 149/82 02/13/20 12:00 40 02/13/20 12:00 Mechanical Ventilator 5.0 02/13/20 12:00 69 02/13/20 12:00 98.1 68 20 149/82 (104) 100 02/13/20 11:45 65 14 45 02/13/20 09:30 66 12 45 02/13/20 08:00 Mechanical Ventilator 5.0 02/13/20 08:00 97.9 68 20 136/73 (94) 100 02/13/20 08:00 40 02/13/20 08:00 67 02/13/20 07:10 76 14 45 02/13/20 05:43 70 138/64 02/13/20 05:02 61 13 45 02/13/20 04:00 97.3 71 20 136/75 (95) 97 02/13/20 04:00 63 02/13/20 04:00 40 02/13/20 03:04 61 14 45 02/13/20 01:21 65 14 45 02/13/20 00:33 77 138/64 02/13/20 00:00 97.9 111 17 138/64 (88) 100 02/12/20 23:58 107 02/12/20 23:04 91 22 45 02/12/20 21:18 118 17 45 02/12/20 20:00 96.6 97 20 103/63 (76) 100 02/12/20 20:00 40 02/12/20 19:47 70 17 45 02/12/20 19:42 65 02/12/20 18:43 63 149/70 02/12/20 17:25 63 12 45 02/12/20 16:00 98.4 83 20 149/70 (96) 100 02/12/20 16:00 40 02/12/20 16:00 66 02/12/20 15:07 62 15 45 02/12/20 13:25 72 14 45 Intake and Output 02/12/20 02/13/20 19:00 07:00 Intake Total 250 ml 698.958 ml Output Total 500 ml 500 ml Balance -250 ml 198.958 ml Intake Free Water 250 ml IV Total 698.958 ml Output Urine Total 500 ml 500 ml Laboratory Tests Test 02/13/20 03:10 02/13/20 11:27 White Blood Count 9.9 K/UL (4.8-10.8) Red Blood Count 2.39 M/UL (4.70-6.10) L Hemoglobin 7.4 G/DL (14.2-18.0) L Hematocrit 25.1 % (42.0-52.0) L Mean Corpuscular Volume 105 FL (80-99) H Mean Corpuscular Hemoglobin 31.0 PG (27.0-31.0) Mean Corpuscular Hemoglobin Concent 29.5 G/DL (32.0-36.0) L Red Cell Distribution Width 18.5 % (11.6-14.8) H Platelet Count 225 K/UL (150-450) Mean Platelet Volume 7.2 FL (6.5-10.1) Neutrophils (%) (Auto) % (45.0-75.0) Lymphocytes (%) (Auto) % (20.0-45.0) Monocytes (%) (Auto) % (1.0-10.0) Eosinophils (%) (Auto) % (0.0-3.0) Basophils (%) (Auto) % (0.0-2.0) Differential Total Cells Counted 100 Neutrophils % (Manual) 83 % (45-75) H Lymphocytes % (Manual) 3 % (20-45) L Monocytes % (Manual) 9 % (1-10) Eosinophils % (Manual) 5 % (0-3) H Basophils % (Manual) 0 % (0-2) Band Neutrophils 0 % (0-8) Platelet Estimate Adequate Platelet Morphology Normal Polychromasia 1+ Hypochromasia 1+ Anisocytosis 2+ Macrocytosis 1+ Reticulocyte Count 3.9 % (0.5-2.0) H Prothrombin Time 12.4 SEC (9.30-11.50) H Prothromb Time International Ratio 1.1 (0.9-1.1) Iron Level 27 ug/dL (50-175) L Total Iron Binding Capacity 217 ug/dL (250-450) L Percent Iron Saturation 12 % (15-50) L Unsaturated Iron Binding 190 ug/dL (112-346) Ferritin 235 NG/ML (8-388) Lactate Dehydrogenase 293 U/L (81-234) H Vitamin B12 Level 1674 PG/ML (193-986) H Thyroid Stimulating Hormone (TSH) 0.141 uiU/mL (0.358-3.740) Microbiology Date/Time Source Procedure Growth Status 02/11/20 13:40 Sputum Gram Stain - Final Resulted 02/11/20 13:40 Sputum Culture - Preliminary Gram Negative Bacillus 1 Resulted 02/11/20 08:10 Rectum - Final NO CARBAPENEM-RESISTANT ENTEROBACTERI... Complete 02/11/20 08:10 Rectum VRE Culture - Final Enterococcus Faecalis - Vre Complete 02/11/20 08:10 Nasal Nares MRSA Culture - Final NO METHICILLIN RESISTANT STAPH AUREUS... Complete 02/11/20 08:09 Nasopharynx SARS-CoV-2 RdRp Gene Assay - Final Complete 02/11/20 08:09 Blood Blood Culture - Preliminary Staphylococcus Sp Coag Neg Resulted 02/11/20 07:50 Blood Blood Culture - Preliminary Staphylococcus Aureus Resulted Objective HEAD AND NECK: no JVD. Status post tracheostomy that still bleeding . LUNGS: Coarse rhonchi. CARDIOVASCULAR: Shows irregular S1 and S2 with no gallop. ABDOMEN: Soft. Status post G-tube. EXTREMITIES: No pitting edema. Liang Barry MD Feb 13, 2020 13:07
--- NOTE | 2020-02-13 13:21 | NUR ---
INSURANCE CLINICALS AND REVIEW SENT TO [facility] FAX [phone]
--- NOTE | 2020-02-13 14:40 | NUR ---
NURSE NOTES: Blood transfusion started after verifying blood product is safe to administer and patient VS is WNL. Patient is afebrile. Patient asleep but easily arousable. Tolerating vent settings well, with no signs of acute distress or discomfort noted. Patient still on NPO status but able to tolerate meds given well. Noted with sanguineous respiratory discharge. Airway kept clean and patent at all times. O2 saturation >96% on vent setting. Will continue to monitor.
--- NOTE | 2020-02-13 14:55 | NUR ---
NURSE NOTES: 15 minutes after blood transfusion started patient is still afebrile and VS remains WNL. Will continue to monitor.
[2020-02-13 16:00] VITALS: BP 121/78
--- NOTE | 2020-02-13 16:27 | Surgery Progress Note ---
Surgery Progress Note Subjective Additional Comments no acute events no bleeding noted suction going well no n/v Objective Last 24 Hour Vital Signs Date Time Temp Pulse Resp B/P (MAP) Pulse Ox O2 Delivery O2 Flow Rate FiO2 02/13/20 16:00 98.1 68 20 121/78 (92) 100 02/13/20 16:00 Mechanical Ventilator 5.0 02/13/20 16:00 40 02/13/20 15:30 60 15 45 02/13/20 13:20 62 17 45 02/13/20 12:20 68 149/82 02/13/20 12:00 40 02/13/20 12:00 Mechanical Ventilator 5.0 02/13/20 12:00 69 02/13/20 12:00 98.1 68 20 149/82 (104) 100 02/13/20 11:45 65 14 45 02/13/20 09:30 66 12 45 02/13/20 08:00 Mechanical Ventilator 5.0 02/13/20 08:00 97.9 68 20 136/73 (94) 100 02/13/20 08:00 40 02/13/20 08:00 67 02/13/20 07:10 76 14 45 02/13/20 05:43 70 138/64 02/13/20 05:02 61 13 45 02/13/20 04:00 97.3 71 20 136/75 (95) 97 02/13/20 04:00 63 02/13/20 04:00 40 02/13/20 03:04 61 14 45 02/13/20 01:21 65 14 45 02/13/20 00:33 77 138/64 02/13/20 00:00 97.9 111 17 138/64 (88) 100 02/12/20 23:58 107 02/12/20 23:04 91 22 45 02/12/20 21:18 118 17 45 02/12/20 20:00 96.6 97 20 103/63 (76) 100 02/12/20 20:00 40 02/12/20 19:47 70 17 45 02/12/20 19:42 65 02/12/20 18:43 63 149/70 02/12/20 17:25 63 12 45 I&O Intake and Output 02/12/20 02/13/20 19:00 07:00 Intake Total 250 ml 698.958 ml Output Total 500 ml 500 ml Balance -250 ml 198.958 ml Intake Free Water 250 ml IV Total 698.958 ml Output Urine Total 500 ml 500 ml Dressing: saturated Cardiovascular: RSR Respiratory: decreased breath sounds Abdomen: non-tender, present bowel sounds Extremities: no tenderness, no cyanosis Laboratory Tests Test 02/13/20 03:10 02/13/20 11:27 White Blood Count 9.9 K/UL (4.8-10.8) Red Blood Count 2.39 M/UL (4.70-6.10) L Hemoglobin 7.4 G/DL (14.2-18.0) L Hematocrit 25.1 % (42.0-52.0) L Mean Corpuscular Volume 105 FL (80-99) H Mean Corpuscular Hemoglobin 31.0 PG (27.0-31.0) Mean Corpuscular Hemoglobin Concent 29.5 G/DL (32.0-36.0) L Red Cell Distribution Width 18.5 % (11.6-14.8) H Platelet Count 225 K/UL (150-450) Mean Platelet Volume 7.2 FL (6.5-10.1) Neutrophils (%) (Auto) % (45.0-75.0) Lymphocytes (%) (Auto) % (20.0-45.0) Monocytes (%) (Auto) % (1.0-10.0) Eosinophils (%) (Auto) % (0.0-3.0) Basophils (%) (Auto) % (0.0-2.0) Differential Total Cells Counted 100 Neutrophils % (Manual) 83 % (45-75) H Lymphocytes % (Manual) 3 % (20-45) L Monocytes % (Manual) 9 % (1-10) Eosinophils % (Manual) 5 % (0-3) H Basophils % (Manual) 0 % (0-2) Band Neutrophils 0 % (0-8) Platelet Estimate Adequate Platelet Morphology Normal Polychromasia 1+ Hypochromasia 1+ Anisocytosis 2+ Macrocytosis 1+ Reticulocyte Count 3.9 % (0.5-2.0) H Prothrombin Time 12.4 SEC (9.30-11.50) H Prothromb Time International Ratio 1.1 (0.9-1.1) Iron Level 27 ug/dL (50-175) L Total Iron Binding Capacity 217 ug/dL (250-450) L Percent Iron Saturation 12 % (15-50) L Unsaturated Iron Binding 190 ug/dL (112-346) Ferritin 235 NG/ML (8-388) Lactate Dehydrogenase 293 U/L (81-234) H Vitamin B12 Level 1674 PG/ML (193-986) H Thyroid Stimulating Hormone (TSH) 0.141 uiU/mL (0.358-3.740) Plan Problems: (1) Sepsis (2) Aspiration pneumonia (3) Tracheostomy complication Assessment & Plan: This 84-year-old male with bleeding from tracheostomy noted in facility. Since has had some residue within the suctioning. Trach evaluated bedside no active bleeding noted. No skin issues. Mild granulation tissue. Able to manipulate and function without problem. Deep suctioning performed no active bleeding identified. Potential isolated incident we will continue to monitor over the next 2 to 3 days to ensure no active bleeding or source of bleeding that requires intervention. Thank you Medina participate in patient's care There is infiltrate at the left lung base. There may be some pleural fluid. The heart size is normal. There is a tracheostomy. Impression: Left basilar infiltrate and possible pleural fluid Tracheostomy (4) Tracheostomy malfunction Yousuf Samayoa Feb 13, 2020 16:27
[2020-02-13] MEDS ORDERED: Tubing Blood Filter IV ONE (16:37)
--- NOTE | 2020-02-13 19:05 | NUR ---
NURSE HAND-OFF REPORT: Important Events on Shift: Blood transfusion today. Patient Status: Stable Diet: NPO Pending Orders: OB stool collection Pending Results/Labs: Pending MD notification: Latest Vital Signs: Temperature 98.1 , Pulse 64 , B/P 121 /78 , Respiratory Rate 13 , O2 SAT 100 , Mechanical Ventilator, O2 Flow Rate 5.0 . Vital Sign Comment: EKG Rhythm: Sinus Rhythm Rhythm change?: N MD Notified?: N - MD Response: Latest Wall Fall Score: 35 Fall Risk: Medium Risk Safety Measures: Call light Within Reach, Bed Alarm Zone 3, Side Rails Side Rails x3, Bed position Low and Locked. Fall Precautions: Yellow Socks Yellow Gown Door Sign Patient Fall Education Report given to LISSA Sheldon.
--- NOTE | 2020-02-13 19:06 | NUR ---
NURSE NOTES: received pt from Arnold RN., pt is resting on the bed. AO x 1 at this time,Kiswahili speaker. vent in place setting of: P7 AC 12 TV 500 Fio2 40 P5. no SOB noted. O2sat is at 99%. pt is currently on NPO , Gtube site intact clean, and patent. right AC 20G 1/2 NS 55cc/hr is running, IV site intact, clean, and patent. aggarwal cath is draining well with gravity no bleeding noted at this time. side rails are padded per seizure precaution. call light within reach. will continue to monitor pt with plan of care. bed at the lowest positioned, alarmed, and locked.
[2020-02-13 20:00] VITALS: BP 126/60
--- NOTE | 2020-02-13 20:05 | General Progress Note ---
Subjective ROS Limited/Unobtainable: Yes Allergies: Coded Allergies: No Known Allergies (Unverified , 02/11/20) Objective Last 24 Hour Vital Signs Date Time Temp Pulse Resp B/P (MAP) Pulse Ox O2 Delivery O2 Flow Rate FiO2 02/13/20 18:50 64 13 45 02/13/20 18:11 62 121/78 02/13/20 17:15 62 15 45 02/13/20 16:00 62 02/13/20 16:00 98.1 68 20 121/78 (92) 100 02/13/20 16:00 Mechanical Ventilator 5.0 02/13/20 16:00 40 02/13/20 15:30 60 15 45 02/13/20 13:20 62 17 45 02/13/20 12:20 68 149/82 02/13/20 12:00 40 02/13/20 12:00 Mechanical Ventilator 5.0 02/13/20 12:00 69 02/13/20 12:00 98.1 68 20 149/82 (104) 100 02/13/20 11:45 65 14 45 02/13/20 09:30 66 12 45 02/13/20 08:00 Mechanical Ventilator 5.0 02/13/20 08:00 97.9 68 20 136/73 (94) 100 02/13/20 08:00 40 02/13/20 08:00 67 02/13/20 07:10 76 14 45 02/13/20 05:43 70 138/64 02/13/20 05:02 61 13 45 02/13/20 04:00 97.3 71 20 136/75 (95) 97 02/13/20 04:00 63 02/13/20 04:00 40 02/13/20 03:04 61 14 45 02/13/20 01:21 65 14 45 02/13/20 00:33 77 138/64 02/13/20 00:00 97.9 111 17 138/64 (88) 100 02/12/20 23:58 107 02/12/20 23:04 91 22 45 02/12/20 21:18 118 17 45 Intake and Output 02/12/20 02/13/20 19:00 07:00 Intake Total 250 ml 698.958 ml Output Total 500 ml 500 ml Balance -250 ml 198.958 ml Intake Free Water 250 ml IV Total 698.958 ml Output Urine Total 500 ml 500 ml Laboratory Tests 02/13/20 03:10: White Blood Count 9.9, Red Blood Count 2.39L, Hemoglobin 7.4L, Hematocrit 25.1L, Mean Corpuscular Volume 105H, Mean Corpuscular Hemoglobin 31.0, Mean Corpuscular Hemoglobin Concent 29.5L, Red Cell Distribution Width 18.5H, Platelet Count 225, Mean Platelet Volume 7.2, Neutrophils (%) (Auto) , Lymphocytes (%) (Auto) , Monocytes (%) (Auto) , Eosinophils (%) (Auto) , Basophils (%) (Auto) , Differential Total Cells Counted 100, Neutrophils % (Manual) 83H, Lymphocytes % (Manual) 3L, Monocytes % (Manual) 9, Eosinophils % (Manual) 5H, Basophils % (Manual) 0, Band Neutrophils 0, Platelet Estimate Adequate, Platelet Morphology Normal, Polychromasia 1+, Hypochromasia 1+, Anisocytosis 2+, Macrocytosis 1+ 02/13/20 11:27: Reticulocyte Count 3.9H, Prothrombin Time 12.4H, Prothromb Time International Ratio 1.1, Iron Level 27L, Total Iron Binding Capacity 217L, Percent Iron Saturation 12L, Unsaturated Iron Binding 190, Ferritin 235, Lactate Dehydrogenase 293H, Vitamin B12 Level 1674H, Thyroid Stimulating Hormone (TSH) 0.141L Height (Feet): 5 Height (Inches): 8.00 Weight (Pounds): 212 Assessment/Plan Problem List: (1) Sepsis ICD Codes: A41.9 - Sepsis, unspecified organism SNOMED: 37640024 Qualifiers: Qualified Codes: A41.9 - Sepsis, unspecified organism; R65.20 - Severe sepsis without septic shock; J96.01 - Acute respiratory failure with hypoxia (2) Aspiration pneumonia ICD Codes: J69.0 - Pneumonitis due to inhalation of food and vomit SNOMED: 806936018 Qualifiers: Qualified Codes: J69.0 - Pneumonitis due to inhalation of food and vomit (3) Tracheostomy complication ICD Codes: J95.00 - Unspecified tracheostomy complication SNOMED: 48225944 Qualifiers: Qualified Codes: J95.00 - Unspecified tracheostomy complication (4) Tracheostomy malfunction ICD Codes: J95.03 - Malfunction of tracheostomy stoma SNOMED: 145735605 Status: progressing Assessment/Plan: drop in hb afebrile sepsis asp pna resp insuff unstable for dc check h/h Oral Crawford MD Feb 13, 2020 20:05
[2020-02-14] VITALS: BP 149/70
[2020-02-14] MEDS: Vancomycin 1 GM in NS 275 ML IVPB SCH ×2 (00:44→12:15)
--- NOTE | 2020-02-14 02:00 | NUR ---
NURSE NOTES: cleaned pt, oral care given. no BM noted. no SOB noted. call light within reach. will continue to monitor pt. changed position Q 2hrs.
[2020-02-14 04:00] VITALS: BP 128/66
[2020-02-14] MEDS: Piperacillin/Tazobactam 3.375 GM in NS 110 ML IVPB SCH ×3 (05:12→21:30)
[2020-02-14] MEDS: dilTIAZem HCl 60mg tab GT SCH ×4 (05:12→18:21)
[2020-02-14 06:17] LABS: BASOPHILS % (AUTO) 0.7 % (0.0-2.0); EOSINOPHILS % (AUTO) 10.7 % (0.0-3.0); HEMATOCRIT 29.9 % (42.0-52.0); HEMOGLOBIN 9.1 G/DL (14.2-18.0); LYMPHOCYTES % (AUTO) 8.1 % (20.0-45.0); MEAN CORPUSCULAR VOLUME 102 FL (80-99); MONOCYTES % (AUTO) 5.2 % (1.0-10.0); NEUTROPHILS % (AUTO) 75.3 % (45.0-75.0); PLATELET COUNT 229 K/UL (150-450); RED BLOOD COUNT 2.94 M/UL (4.70-6.10); RED CELL DISTRIBUTION WIDTH 17.3 % (11.6-14.8); WHITE BLOOD COUNT 8.5 K/UL (4.8-10.8)
[2020-02-14 06:31] LABS: ALANINE AMINOTRANSFERASE 10 U/L (12-78); ALBUMIN 1.8 G/DL (3.4-5.0); ALBUMIN/GLOBULIN RATIO 0.5 (1.0-2.7); ALKALINE PHOSPHATASE 53 U/L (46-116); ANION GAP 7 mmol/L (5-15); ASPARTATE AMINO TRANSFERASE 32 U/L (15-37); BILIRUBIN,TOTAL 3.1 MG/DL (0.2-1.0); BLOOD UREA NITROGEN 18 mg/dL (7-18); CALCIUM 8.1 MG/DL (8.5-10.1); CARBON DIOXIDE 27 MMOL/L (21-32); CHLORIDE 106 MMOL/L (98-107); CREATININE 0.8 MG/DL (0.55-1.30); POTASSIUM 3.5 MMOL/L (3.5-5.1); SODIUM 139 MMOL/L (136-145)
[2020-02-14 06:38] LABS: BILIRUBIN,DIRECT 2.2 MG/DL (0.0-0.3)
--- NOTE | 2020-02-14 07:15 | NUR ---
NURSE HAND-OFF REPORT: Important Events on Shift:[SB (50s)and BS 75 at 0600 today] Patient Status: [stable] Diet: [NPO] Pending Orders: [N/a] Pending Results/Labs:[N/a] Pending MD notification:[Yoel Burgessguy blood culture positive] Latest Vital Signs: Temperature 97.6 , Pulse 56 , B/P 128 /66 , Respiratory Rate 12 , O2 SAT 100 , Mechanical Ventilator, O2 Flow Rate 5.0 . Vital Sign Comment: [stable] EKG Rhythm: Sinus Bradycardia Rhythm change?: N MD Notified?: N - MD Response: Latest Wall Fall Score: 35 Fall Risk: Medium Risk Safety Measures: Call light Within Reach, Bed Alarm Zone 3, Side Rails Side Rails x3, Bed position Low and Locked. Fall Precautions: Yellow Socks Yellow Gown Door Sign Patient Fall Education Report given to [Isabel ALCARAZ].
--- NOTE | 2020-02-14 07:35 | NUR ---
NURSE NOTES: left voice mail to Dr. Yoel Vasquez regarding blood culture positive. will wait for call back.
--- NOTE | 2020-02-14 07:36 | NUR ---
NURSE NOTES: no new order received from Dr. Yoel rosales regarding blood culture positive.
[2020-02-14 08:00] VITALS: BP 157/79
--- NOTE | 2020-02-14 08:04 | NUR ---
NURSE NOTES:Handoff received from LISSA Martinez. Patient received sleeping in bed, on trach to vent with settings of: Portex 7, AC12, TV500, FI02 45% and PEEP of 5, tolerating well with no signs of distress, saturating at 96% patient communicates via facial expression, and can follow simple commands. traffic monitor specialist shows HR of 67 SR. Patient is on fall, aspiration and seizure precautions, bed in the low and locked position with call light placed in patient's hand as patient has only minimal movement of the fingers. Patient is NPO. 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 Both IV sites are clean dry and intact, with the R hand running 1/2NS @ 55ML/HR. Patient has vanco trough at 1100. Will follow plan of care.
--- NOTE | 2020-02-14 08:51 | Pulmonology Progress Note ---
Subjective ROS Limited/Unobtainable: Yes Interval Events: No peter-tracheal bleeding; still has red tinged endo-tracheal aspirate Constitutional: Denies: fever HEENT: Repors: no symptoms Respiratory: Reports: no symptoms Cardiovascular: Reports: no symptoms Gastrointestinal/Abdominal: Reports: no symptoms Allergies: Coded Allergies: No Known Allergies (Unverified , 02/11/20) Objective Last 24 Hour Vital Signs Date Time Temp Pulse Resp B/P (MAP) Pulse Ox O2 Delivery O2 Flow Rate FiO2 02/14/20 08:00 97.7 65 17 157/79 (105) 100 02/14/20 08:00 45 02/14/20 05:12 56 128/66 02/14/20 04:59 56 12 45 02/14/20 04:00 97.6 59 18 128/66 (86) 100 02/14/20 04:00 40 02/14/20 04:00 Mechanical Ventilator 5.0 02/14/20 03:49 82 02/14/20 02:49 74 13 45 02/14/20 00:51 59 15 45 02/14/20 00:00 Mechanical Ventilator 5.0 02/14/20 00:00 55 126/60 02/14/20 00:00 98.0 54 18 149/70 (96) 100 02/13/20 22:41 55 13 45 02/13/20 20:36 52 12 45 02/13/20 20:00 56 02/13/20 20:00 Mechanical Ventilator 5.0 02/13/20 20:00 40 02/13/20 20:00 98.1 56 18 126/60 (82) 100 02/13/20 18:50 64 13 45 02/13/20 18:11 62 121/78 02/13/20 17:15 62 15 45 02/13/20 16:00 62 02/13/20 16:00 98.1 68 20 121/78 (92) 100 02/13/20 16:00 Mechanical Ventilator 5.0 02/13/20 16:00 40 02/13/20 15:30 60 15 45 02/13/20 13:20 62 17 45 02/13/20 12:20 68 149/82 02/13/20 12:00 40 02/13/20 12:00 Mechanical Ventilator 5.0 02/13/20 12:00 69 02/13/20 12:00 98.1 68 20 149/82 (104) 100 02/13/20 11:45 65 14 45 02/13/20 09:30 66 12 45 Intake and Output 02/13/20 02/14/20 19:00 07:00 Intake Total 455 ml 1067.910 ml Output Total 450 ml 500 ml Balance 5 ml 567.910 ml Intake Free Water 150 ml IV Total 55 ml 1067.910 ml Blood Product 250 ml Output Urine Total 450 ml 500 ml General Appearance: no acute distress HEENT: normocephalic Respiratory: chest wall non-tender, lungs clear Cardiovascular: normal peripheral pulses Abdomen: normal bowel sounds Microbiology Date/Time Source Procedure Growth Status 02/13/20 01:30 Sputum Gram Stain - Final Resulted 02/13/20 01:30 Sputum Sputum Culture Pending Resulted 02/11/20 13:40 Sputum Gram Stain - Final Complete 02/11/20 13:40 Sputum Culture - Final Pseudomonas Aeruginosa Complete Laboratory Tests 02/13/20 11:27: Reticulocyte Count 3.9H, Prothrombin Time 12.4H, Prothromb Time International Ratio 1.1, Iron Level 27L, Total Iron Binding Capacity 217L, Percent Iron Saturation 12L, Unsaturated Iron Binding 190, Ferritin 235, Lactate Dehydrogenase 293H, Vitamin B12 Level 1674H, Thyroid Stimulating Hormone (TSH) 0.141L 02/14/20 05:36: POC Whole Blood Glucose 75 02/14/20 05:45: White Blood Count 8.5, Red Blood Count 2.94L, Hemoglobin 9.1L, Hematocrit 29.9L, Mean Corpuscular Volume 102H, Mean Corpuscular Hemoglobin 31.0, Mean Corpuscular Hemoglobin Concent 30.4L, Red Cell Distribution Width 17.3H, Platelet Count 229, Mean Platelet Volume 7.0, Neutrophils (%) (Auto) 75.3H, Lymphocytes (%) (Auto) 8.1L, Monocytes (%) (Auto) 5.2, Eosinophils (%) (Auto) 10.7H, Basophils (%) (Auto) 0.7, Sodium Level 139, Potassium Level 3.5, Chloride Level 106, Carbon Dioxide Level 27, Anion Gap 7, Blood Urea Nitrogen 18, Creatinine 0.8, Estimat Glomerular Filtration Rate > 60, Glucose Level 74, Calcium Level 8.1L, Total Bilirubin 3.1H, Direct Bilirubin 2.2H, Aspartate Amino Transf (AST/SGOT) 32, Alanine Aminotransferase (ALT/SGPT) 10L, Alkaline Phosphatase 53, Total Protein 5.7L, Albumin 1.8L, Globulin 3.9, Albumin/Globulin Ratio 0.5L Current Medications Medications (Trade) Dose Ordered Sig/Natalia Route PRN Reason Start Time Stop Time Status Last Admin Dose Admin Acetaminophen (Tylenol) 650 mg Q4H PRN GT Temp >100.5 02/11/20 13:30 03/12/20 13:29 Acetaminophen (Tylenol) 650 mg Q4H PRN GT Mild Pain (Pain Scale 1-3) 02/11/20 13:45 03/12/20 13:44 Clonidine HCl (Catapres Tab) 0.1 mg Q2H PRN GT For High Blood Pressure 02/11/20 16:30 05/11/20 16:29 Diltiazem HCl (Cardizem Tab) 60 mg EVERY 6 HOURS GT 02/11/20 18:00 03/12/20 17:59 02/13/20 18:11 Heparin Sodium (Porcine) (Heparin 5000 units/ml) 5,000 units EVERY 12 HOURS SUBQ 02/12/20 21:00 03/28/20 20:59 Levetiracetam (Keppra) 1,500 mg Q12HR GT 02/11/20 21:00 03/12/20 20:59 02/13/20 20:06 Pantoprazole (Protonix) 40 mg DAILY IVP 02/13/20 09:00 03/14/20 08:59 02/13/20 09:48 Piperacillin Sod/ Tazobactam Sod 3.375 gm/Sodium Chloride 110 ml @ 27.5 mls/hr EVERY 8 HOURS IVPB 02/11/20 14:00 02/16/20 13:59 02/14/20 05:12 Sodium Chloride 1,000 ml @ 55 mls/hr [id number] IV 02/11/20 13:45 03/12/20 13:44 02/13/20 20:05 Vancomycin HCl (Vanco pharmacy to dose) 1 ea DAILY PRN MISC Per rx protocol 02/12/20 11:30 03/13/20 11:29 Vancomycin HCl 1 gm/Sodium Chloride 275 ml @ 183.708 mls/hr Q12H IVPB 02/13/20 00:00 02/18/20 00:00 02/14/20 00:44 Assessment/Plan Assessment/Plan IMPRESSION: 1. Left lung pneumonia. 2. Leukocytosis. 3. Lactic acidemia. 4. Endo-tracheal bleeding/hemoptysis 5. Chronic tracheostomy. 6. Chronic vent dependence. 7. Chronic G-tube. 8. Previous CVA. DISCUSSION: Continue broad-spectrum antibiotics. Oxygen and pulmonary hygiene. Tracheostomy site is clean Has ongoing bloody endotracheal aspirate Will consider bronchoscopy Await sputum culture. I will follow carefully. DVT and GI prophylaxes. Kandy Golden Omar Syed MD Feb 14, 2020 08:51
[2020-02-14] MEDS: Heparin 5000 units/ml inj SUBQ SCH ×2 (09:00→20:35)
--- NOTE | 2020-02-14 09:09 | NUR ---
NURSE NOTES:Non-administered heparin as patient is still having bleeding in the tracheostomy.
[2020-02-14] MEDS: Pantoprazole Inj IVP SCH (09:10)
[2020-02-14] MEDS: levETIRAcetam 500mg/5ml Liquid GT SCH ×2 (09:10→20:35)
--- NOTE | 2020-02-14 11:31 | Diagnostic Imaging Report ---
EXAM: CT Chest Without Intravenous Contrast CLINICAL HISTORY: MASS TECHNIQUE: Axial computed tomography images of the chest without intravenous contrast. CTDI is 12.3 mGy and DLP is 493.7 mGy-cm. One or more of the following dose reduction techniques were used: automated exposure control, adjustment of the mA and/or kV according to patient size, use of iterative reconstruction technique. COMPARISON: None FINDINGS: Lungs: Patchy consolidations and ground-glass opacities in the left lower lobe, concerning for pneumonia. Reticulonodular densities in the medial left upper lobe are also concerning for an infectious/inflammatory process. Dependent consolidations in the right lung and in the left upper lobe likely represent atelectasis. Somewhat nodular density measuring 7-8 mm in the right lower lobe also likely represents atelectasis given the appearance on the sagittal and coronal images. Ground-glass opacities may represent atelectasis versus edema. Pleural space: Small bilateral pleural effusions. No pneumothorax. Heart: Mild cardiomegaly. Coronary artery, aortic valve, and mitral annular calcifications. No significant pericardial effusion. Bones/joints: Degenerative changes of the spine. Age indeterminate but likely chronic mild superior endplate depression of the T12 vertebral body. No acute fracture. No dislocation. Soft tissues: Unremarkable. Vasculature: Unremarkable. No thoracic aortic aneurysm. Lymph nodes: Heterogeneous thyroid which could be further evaluated with nonemergent dedicated ultrasound if clinically indicated. Nonspecific shotty mediastinal and axillae lymph nodes. Liver: Cirrhotic liver. Gallbladder and bile ducts: Hyperdense material within the gallbladder could represent stones/sludge. Pancreas: Atrophy of the pancreas. Spleen: Small splenule. Kidneys and ureters: Perinephric fat stranding partially visualized. Tubes, lines and devices: Endotracheal tube terminates in the upper thoracic trachea at the thoracic inlet. G-tube in place. IMPRESSION: 1. Small bilateral pleural effusions. 2. Patchy consolidations and ground-glass opacities in the left lower lobe, concerning for pneumonia. Reticulonodular densities in the medial left upper lobe are also concerning for an infectious/inflammatory process. 3. Dependent consolidations in the right lung and in the left upper lobe likely represent atelectasis. Somewhat nodular density measuring 7-8 mm in the right lower lobe also likely represents atelectasis given the appearance on the sagittal and coronal images. 4. Ground-glass opacities may represent atelectasis versus edema. 5. Cirrhotic liver. 6. Hyperdense material within the gallbladder could represent stones/sludge.
[2020-02-14 12:00] VITALS: BP 155/86
--- NOTE | 2020-02-14 12:31 | Infectious Diseases Prog Note ---
Assessment/Plan Assessment/Plan IMPRESSION: Sepsis with Staph aureus (MRSA) Pseudomonas pneumonia, Tracheostomy complication with bleeding. Anemia Ventilator-dependent respiratory failure. Elevated bilirubin. VRE carrier RECOMMENDATIONS: Continue IV Zosyn.& IV Vancomycin will f/u TTE Repeat blood cultures. Subjective ROS Limited/Unobtainable: Yes Gastrointestinal/Abdominal: Reports: other - NPO Allergies: Coded Allergies: No Known Allergies (Unverified , 02/11/20) Objective Last 24 Hour Vital Signs Date Time Temp Pulse Resp B/P (MAP) Pulse Ox O2 Delivery O2 Flow Rate FiO2 02/14/20 12:14 110 155/86 02/14/20 12:00 97.7 110 17 155/86 (109) 100 02/14/20 12:00 Mechanical Ventilator 5.0 02/14/20 12:00 45 02/14/20 11:00 84 26 45 02/14/20 08:30 59 13 45 02/14/20 08:00 97.7 65 17 157/79 (105) 100 02/14/20 08:00 45 02/14/20 08:00 Mechanical Ventilator 5.0 02/14/20 07:52 61 02/14/20 07:00 67 13 45 02/14/20 05:12 56 128/66 02/14/20 04:59 56 12 45 02/14/20 04:00 97.6 59 18 128/66 (86) 100 02/14/20 04:00 40 02/14/20 04:00 Mechanical Ventilator 5.0 02/14/20 03:49 82 02/14/20 02:49 74 13 45 02/14/20 00:51 59 15 45 02/14/20 00:00 Mechanical Ventilator 5.0 02/14/20 00:00 55 126/60 02/14/20 00:00 98.0 54 18 149/70 (96) 100 02/13/20 22:41 55 13 45 02/13/20 20:36 52 12 45 02/13/20 20:00 56 02/13/20 20:00 Mechanical Ventilator 5.0 02/13/20 20:00 40 02/13/20 20:00 98.1 56 18 126/60 (82) 100 02/13/20 18:50 64 13 45 02/13/20 18:11 62 121/78 02/13/20 17:15 62 15 45 02/13/20 16:00 62 02/13/20 16:00 98.1 68 20 121/78 (92) 100 02/13/20 16:00 Mechanical Ventilator 5.0 02/13/20 16:00 40 02/13/20 15:30 60 15 45 02/13/20 13:20 62 17 45 Height (Feet): 5 Height (Inches): 8.00 Weight (Pounds): 212 HEENT: status post trach Respiratory/Chest: decreased breath sounds, other - on ventilator Cardiovascular: tachycardia Abdomen: soft, non tender, other - GT in place Extremities: other - legs edema Neurologic/Psychiatric: aphasia Microbiology Date/Time Source Procedure Growth Status 02/13/20 01:30 Sputum Gram Stain - Final Resulted 02/13/20 01:30 Sputum Sputum Culture Pending Resulted 02/11/20 13:40 Sputum Gram Stain - Final Complete 02/11/20 13:40 Sputum Culture - Final Pseudomonas Aeruginosa Complete Laboratory Tests Test 02/14/20 05:36 02/14/20 05:45 02/14/20 11:20 POC Whole Blood Glucose 75 MG/DL (74-106) White Blood Count 8.5 K/UL (4.8-10.8) Red Blood Count 2.94 M/UL (4.70-6.10) L Hemoglobin 9.1 G/DL (14.2-18.0) L Hematocrit 29.9 % (42.0-52.0) L Mean Corpuscular Volume 102 FL (80-99) H Mean Corpuscular Hemoglobin 31.0 PG (27.0-31.0) Mean Corpuscular Hemoglobin Concent 30.4 G/DL (32.0-36.0) L Red Cell Distribution Width 17.3 % (11.6-14.8) H Platelet Count 229 K/UL (150-450) Mean Platelet Volume 7.0 FL (6.5-10.1) Neutrophils (%) (Auto) 75.3 % (45.0-75.0) H Lymphocytes (%) (Auto) 8.1 % (20.0-45.0) L Monocytes (%) (Auto) 5.2 % (1.0-10.0) Eosinophils (%) (Auto) 10.7 % (0.0-3.0) H Basophils (%) (Auto) 0.7 % (0.0-2.0) Sodium Level 139 MMOL/L (136-145) Potassium Level 3.5 MMOL/L (3.5-5.1) Chloride Level 106 MMOL/L (98-107) Carbon Dioxide Level 27 MMOL/L (21-32) Anion Gap 7 mmol/L (5-15) Blood Urea Nitrogen 18 mg/dL (7-18) Creatinine 0.8 MG/DL (0.55-1.30) Estimat Glomerular Filtration Rate > 60 mL/min (>60) Glucose Level 74 MG/DL (74-106) Calcium Level 8.1 MG/DL (8.5-10.1) L Total Bilirubin 3.1 MG/DL (0.2-1.0) H Direct Bilirubin 2.2 MG/DL (0.0-0.3) H Aspartate Amino Transf (AST/SGOT) 32 U/L (15-37) Alanine Aminotransferase (ALT/SGPT) 10 U/L (12-78) L Alkaline Phosphatase 53 U/L (46-116) Total Protein 5.7 G/DL (6.4-8.2) L Albumin 1.8 G/DL (3.4-5.0) L Globulin 3.9 g/dL Albumin/Globulin Ratio 0.5 (1.0-2.7) L Vancomycin Level Trough 17.6 ug/mL (5.0-12.0) H Current Medications Medications (Trade) Dose Ordered Sig/Natalia Route PRN Reason Start Time Stop Time Status Last Admin Dose Admin Acetaminophen (Tylenol) 650 mg Q4H PRN GT Temp >100.5 02/11/20 13:30 03/12/20 13:29 Acetaminophen (Tylenol) 650 mg Q4H PRN GT Mild Pain (Pain Scale 1-3) 02/11/20 13:45 03/12/20 13:44 Clonidine HCl (Catapres Tab) 0.1 mg Q2H PRN GT For High Blood Pressure 02/11/20 16:30 05/11/20 16:29 Diltiazem HCl (Cardizem Tab) 60 mg EVERY 6 HOURS GT 02/11/20 18:00 03/12/20 17:59 02/14/20 12:14 Heparin Sodium (Porcine) (Heparin 5000 units/ml) 5,000 units EVERY 12 HOURS SUBQ 02/12/20 21:00 03/28/20 20:59 Levetiracetam (Keppra) 1,500 mg Q12HR GT 02/11/20 21:00 03/12/20 20:59 02/14/20 09:10 Pantoprazole (Protonix) 40 mg DAILY IVP 02/13/20 09:00 03/14/20 08:59 02/14/20 09:10 Piperacillin Sod/ Tazobactam Sod 3.375 gm/Sodium Chloride 110 ml @ 27.5 mls/hr EVERY 8 HOURS IVPB 02/11/20 14:00 02/16/20 13:59 02/14/20 05:12 Sodium Chloride 1,000 ml @ 55 mls/hr [id number] IV 02/11/20 13:45 03/12/20 13:44 02/13/20 20:05 Vancomycin HCl (Vanco pharmacy to dose) 1 ea DAILY PRN MISC Per rx protocol 02/12/20 11:30 03/13/20 11:29 Vancomycin HCl 1 gm/Sodium Chloride 275 ml @ 183.708 mls/hr Q12H IVPB 02/13/20 00:00 02/18/20 00:00 02/14/20 12:15 Ulises Vasquez MD Feb 14, 2020 12:31
--- NOTE | 2020-02-14 13:23 | Surgery Progress Note ---
Surgery Progress Note Subjective Additional Comments h/h stable trachea okay deep suctioning with some blood tinged aspirate ? bronch as per pulm Objective Last 24 Hour Vital Signs Date Time Temp Pulse Resp B/P (MAP) Pulse Ox O2 Delivery O2 Flow Rate FiO2 02/14/20 12:14 110 155/86 02/14/20 12:00 97.7 110 17 155/86 (109) 100 02/14/20 12:00 Mechanical Ventilator 5.0 02/14/20 12:00 45 02/14/20 12:00 103 02/14/20 11:00 84 26 45 02/14/20 08:30 59 13 45 02/14/20 08:00 97.7 65 17 157/79 (105) 100 02/14/20 08:00 45 02/14/20 08:00 Mechanical Ventilator 5.0 02/14/20 07:52 61 02/14/20 07:00 67 13 45 02/14/20 05:12 56 128/66 02/14/20 04:59 56 12 45 02/14/20 04:00 97.6 59 18 128/66 (86) 100 02/14/20 04:00 40 02/14/20 04:00 Mechanical Ventilator 5.0 02/14/20 03:49 82 02/14/20 02:49 74 13 45 02/14/20 00:51 59 15 45 02/14/20 00:00 Mechanical Ventilator 5.0 02/14/20 00:00 55 126/60 02/14/20 00:00 98.0 54 18 149/70 (96) 100 02/13/20 22:41 55 13 45 02/13/20 20:36 52 12 45 02/13/20 20:00 56 02/13/20 20:00 Mechanical Ventilator 5.0 02/13/20 20:00 40 02/13/20 20:00 98.1 56 18 126/60 (82) 100 02/13/20 18:50 64 13 45 02/13/20 18:11 62 121/78 02/13/20 17:15 62 15 45 02/13/20 16:00 62 02/13/20 16:00 98.1 68 20 121/78 (92) 100 02/13/20 16:00 Mechanical Ventilator 5.0 02/13/20 16:00 40 02/13/20 15:30 60 15 45 I&O Intake and Output 02/13/20 02/14/20 19:00 07:00 Intake Total 455 ml 1067.910 ml Output Total 450 ml 500 ml Balance 5 ml 567.910 ml Intake Free Water 150 ml IV Total 55 ml 1067.910 ml Blood Product 250 ml Output Urine Total 450 ml 500 ml Dressing: saturated Cardiovascular: RSR Respiratory: decreased breath sounds Abdomen: non-tender, present bowel sounds Extremities: no edema, no tenderness, no cyanosis Laboratory Tests Test 02/14/20 05:36 02/14/20 05:45 02/14/20 11:20 POC Whole Blood Glucose 75 MG/DL (74-106) White Blood Count 8.5 K/UL (4.8-10.8) Red Blood Count 2.94 M/UL (4.70-6.10) L Hemoglobin 9.1 G/DL (14.2-18.0) L Hematocrit 29.9 % (42.0-52.0) L Mean Corpuscular Volume 102 FL (80-99) H Mean Corpuscular Hemoglobin 31.0 PG (27.0-31.0) Mean Corpuscular Hemoglobin Concent 30.4 G/DL (32.0-36.0) L Red Cell Distribution Width 17.3 % (11.6-14.8) H Platelet Count 229 K/UL (150-450) Mean Platelet Volume 7.0 FL (6.5-10.1) Neutrophils (%) (Auto) 75.3 % (45.0-75.0) H Lymphocytes (%) (Auto) 8.1 % (20.0-45.0) L Monocytes (%) (Auto) 5.2 % (1.0-10.0) Eosinophils (%) (Auto) 10.7 % (0.0-3.0) H Basophils (%) (Auto) 0.7 % (0.0-2.0) Sodium Level 139 MMOL/L (136-145) Potassium Level 3.5 MMOL/L (3.5-5.1) Chloride Level 106 MMOL/L (98-107) Carbon Dioxide Level 27 MMOL/L (21-32) Anion Gap 7 mmol/L (5-15) Blood Urea Nitrogen 18 mg/dL (7-18) Creatinine 0.8 MG/DL (0.55-1.30) Estimat Glomerular Filtration Rate > 60 mL/min (>60) Glucose Level 74 MG/DL (74-106) Calcium Level 8.1 MG/DL (8.5-10.1) L Total Bilirubin 3.1 MG/DL (0.2-1.0) H Direct Bilirubin 2.2 MG/DL (0.0-0.3) H Aspartate Amino Transf (AST/SGOT) 32 U/L (15-37) Alanine Aminotransferase (ALT/SGPT) 10 U/L (12-78) L Alkaline Phosphatase 53 U/L (46-116) Total Protein 5.7 G/DL (6.4-8.2) L Albumin 1.8 G/DL (3.4-5.0) L Globulin 3.9 g/dL Albumin/Globulin Ratio 0.5 (1.0-2.7) L Vancomycin Level Trough 17.6 ug/mL (5.0-12.0) H Plan Problems: (1) Sepsis (2) Aspiration pneumonia (3) Tracheostomy complication Assessment & Plan: This 84-year-old male with bleeding from tracheostomy noted in facility. Since has had some residue within the suctioning. Trach evaluated bedside no active bleeding noted. No skin issues. Mild granulation tissue. Able to manipulate and function without problem. Deep suctioning performed no active bleeding identified. Potential isolated incident we will continue to monitor over the next 2 to 3 days to ensure no active bleeding or source of b leeding that requires intervention. Thank you allowing me to participate in patient's care There is infiltrate at the left lung base. There may be some pleural fluid. The heart size is normal. There is a tracheostomy. noted some blood with suction trach okay ? bronch as per pulm Impression: Left basilar infiltrate and possible pleural fluid Tracheostomy (4) Tracheostomy malfunction Yousuf Samayoa Feb 14, 2020 13:23
--- NOTE | 2020-02-14 13:52 | Cardiac Electrophysiology PN ---
Assessment/Plan Assessment/Plan 1. Atrial fibrillation with rapid ventricular response. On Cardizem 60 mg q.6h. Off anticoagulation for tracheal bleed. In SR with first degree AVB 2. Accelerated hypertension. Off losartan 50 mg daily and on Cardizem 3. Bleeding from the trach site. Further evaluation by Surgery. S/P PRBC 4. Ventilator-respiratory failure. Further evaluation by Dr. Otero. 5. Dysphagia, status post PEG placement. 6. Elevated white count and sepsis, on IV antibiotic. DW RN Subjective Subjective BP better but trach still has minimal bleeding. Fio2 45% and PEEP 5.Had 1 unit PRBC again Objective Last 24 Hour Vital Signs Date Time Temp Pulse Resp B/P (MAP) Pulse Ox O2 Delivery O2 Flow Rate FiO2 02/14/20 12:14 110 155/86 02/14/20 12:00 97.7 110 17 155/86 (109) 100 02/14/20 12:00 Mechanical Ventilator 5.0 02/14/20 12:00 45 02/14/20 12:00 103 02/14/20 11:00 84 26 45 02/14/20 08:30 59 13 45 02/14/20 08:00 97.7 65 17 157/79 (105) 100 02/14/20 08:00 45 02/14/20 08:00 Mechanical Ventilator 5.0 02/14/20 07:52 61 02/14/20 07:00 67 13 45 02/14/20 05:12 56 128/66 02/14/20 04:59 56 12 45 02/14/20 04:00 97.6 59 18 128/66 (86) 100 02/14/20 04:00 40 02/14/20 04:00 Mechanical Ventilator 5.0 02/14/20 03:49 82 02/14/20 02:49 74 13 45 02/14/20 00:51 59 15 45 02/14/20 00:00 Mechanical Ventilator 5.0 02/14/20 00:00 55 126/60 02/14/20 00:00 98.0 54 18 149/70 (96) 100 02/13/20 22:41 55 13 45 02/13/20 20:36 52 12 45 02/13/20 20:00 56 02/13/20 20:00 Mechanical Ventilator 5.0 02/13/20 20:00 40 02/13/20 20:00 98.1 56 18 126/60 (82) 100 02/13/20 18:50 64 13 45 02/13/20 18:11 62 121/78 02/13/20 17:15 62 15 45 02/13/20 16:00 62 02/13/20 16:00 98.1 68 20 121/78 (92) 100 02/13/20 16:00 Mechanical Ventilator 5.0 02/13/20 16:00 40 02/13/20 15:30 60 15 45 Intake and Output 02/13/20 02/14/20 19:00 07:00 Intake Total 455 ml 1067.910 ml Output Total 450 ml 500 ml Balance 5 ml 567.910 ml Intake Free Water 150 ml IV Total 55 ml 1067.910 ml Blood Product 250 ml Output Urine Total 450 ml 500 ml Laboratory Tests Test 02/14/20 05:36 02/14/20 05:45 02/14/20 11:20 POC Whole Blood Glucose 75 MG/DL (74-106) White Blood Count 8.5 K/UL (4.8-10.8) Red Blood Count 2.94 M/UL (4.70-6.10) L Hemoglobin 9.1 G/DL (14.2-18.0) L Hematocrit 29.9 % (42.0-52.0) L Mean Corpuscular Volume 102 FL (80-99) H Mean Corpuscular Hemoglobin 31.0 PG (27.0-31.0) Mean Corpuscular Hemoglobin Concent 30.4 G/DL (32.0-36.0) L Red Cell Distribution Width 17.3 % (11.6-14.8) H Platelet Count 229 K/UL (150-450) Mean Platelet Volume 7.0 FL (6.5-10.1) Neutrophils (%) (Auto) 75.3 % (45.0-75.0) H Lymphocytes (%) (Auto) 8.1 % (20.0-45.0) L Monocytes (%) (Auto) 5.2 % (1.0-10.0) Eosinophils (%) (Auto) 10.7 % (0.0-3.0) H Basophils (%) (Auto) 0.7 % (0.0-2.0) Sodium Level 139 MMOL/L (136-145) Potassium Level 3.5 MMOL/L (3.5-5.1) Chloride Level 106 MMOL/L (98-107) Carbon Dioxide Level 27 MMOL/L (21-32) Anion Gap 7 mmol/L (5-15) Blood Urea Nitrogen 18 mg/dL (7-18) Creatinine 0.8 MG/DL (0.55-1.30) Estimat Glomerular Filtration Rate > 60 mL/min (>60) Glucose Level 74 MG/DL (74-106) Calcium Level 8.1 MG/DL (8.5-10.1) L Total Bilirubin 3.1 MG/DL (0.2-1.0) H Direct Bilirubin 2.2 MG/DL (0.0-0.3) H Aspartate Amino Transf (AST/SGOT) 32 U/L (15-37) Alanine Aminotransferase (ALT/SGPT) 10 U/L (12-78) L Alkaline Phosphatase 53 U/L (46-116) Total Protein 5.7 G/DL (6.4-8.2) L Albumin 1.8 G/DL (3.4-5.0) L Globulin 3.9 g/dL Albumin/Globulin Ratio 0.5 (1.0-2.7) L Vancomycin Level Trough 17.6 ug/mL (5.0-12.0) H Microbiology Date/Time Source Procedure Growth Status 02/13/20 01:30 Sputum Gram Stain - Final Resulted 02/13/20 01:30 Sputum Sputum Culture Pending Resulted Objective HEAD AND NECK: no JVD. Status post tracheostomy that still bleeding . LUNGS: Coarse rhonchi. CARDIOVASCULAR: Shows irregular S1 and S2 with no gallop. ABDOMEN: Soft. Status post G-tube. EXTREMITIES: No pitting edema. Liang Barry MD Feb 14, 2020 13:52
[2020-02-14 16:00] VITALS: BP 169/93
--- NOTE | 2020-02-14 19:05 | NUR ---
NURSE NOTES: Received report from Saad Valencia RN. pt is seen sleeping in bed in semi-hernandez's position. Padded side rails noted. [facility] with settings of AC 12, TV 500, fio2- 40% peep of 5.0. O2 sat 97%. Pt has no signs of apparent distress. Pt breathing is even and unlabored. No signs of pain as pt is sleeping comfortably in bed. No bleeding noted at trach site. With Left hand g22 running 1/2 NS @55ml/hr patent and intact. Bed in lowest position. Call light within reach. Continue to plan of care.
[2020-02-14 20:00] VITALS: BP 140/95
--- NOTE | 2020-02-14 20:15 | General Progress Note ---
Subjective ROS Limited/Unobtainable: Yes Allergies: Coded Allergies: No Known Allergies (Unverified , 02/11/20) Objective Last 24 Hour Vital Signs Date Time Temp Pulse Resp B/P (MAP) Pulse Ox O2 Delivery O2 Flow Rate FiO2 02/14/20 19:06 62 19 40 02/14/20 18:21 78 169/93 02/14/20 17:00 78 17 45 02/14/20 16:00 Mechanical Ventilator 5.0 02/14/20 16:00 66 02/14/20 16:00 45 02/14/20 16:00 97.2 72 16 169/93 (118) 100 02/14/20 15:00 60 16 45 02/14/20 13:00 62 15 45 02/14/20 12:14 110 155/86 02/14/20 12:00 97.7 110 17 155/86 (109) 100 02/14/20 12:00 Mechanical Ventilator 5.0 02/14/20 12:00 45 02/14/20 12:00 103 02/14/20 11:00 84 26 45 02/14/20 08:30 59 13 45 02/14/20 08:00 97.7 65 17 157/79 (105) 100 02/14/20 08:00 45 02/14/20 08:00 Mechanical Ventilator 5.0 02/14/20 07:52 61 02/14/20 07:00 67 13 45 02/14/20 05:12 56 128/66 02/14/20 04:59 56 12 45 02/14/20 04:00 97.6 59 18 128/66 (86) 100 02/14/20 04:00 40 02/14/20 04:00 Mechanical Ventilator 5.0 02/14/20 03:49 82 02/14/20 02:49 74 13 45 02/14/20 00:51 59 15 45 02/14/20 00:00 Mechanical Ventilator 5.0 02/14/20 00:00 55 126/60 02/14/20 00:00 98.0 54 18 149/70 (96) 100 02/13/20 22:41 55 13 45 02/13/20 20:36 52 12 45 Intake and Output 02/13/20 02/14/20 19:00 07:00 Intake Total 455 ml 1067.910 ml Output Total 450 ml 500 ml Balance 5 ml 567.910 ml Intake Free Water 150 ml IV Total 55 ml 1067.910 ml Blood Product 250 ml Output Urine Total 450 ml 500 ml Laboratory Tests 02/14/20 05:36: POC Whole Blood Glucose 75 02/14/20 05:45: White Blood Count 8.5, Red Blood Count 2.94L, Hemoglobin 9.1L, Hematocrit 29.9L, Mean Corpuscular Volume 102H, Mean Corpuscular Hemoglobin 31.0, Mean Corpuscular Hemoglobin Concent 30.4L, Red Cell Distribution Width 17.3H, Platelet Count 229, Mean Platelet Volume 7.0, Neutrophils (%) (Auto) 75.3H, Lymphocytes (%) (Auto) 8.1L, Monocytes (%) (Auto) 5.2, Eosinophils (%) (Auto) 10.7H, Basophils (%) (Auto) 0.7, Sodium Level 139, Potassium Level 3.5, Chloride Level 106, Carbon Dioxide Level 27, Anion Gap 7, Blood Urea Nitrogen 18, Creatinine 0.8, Estimat Glomerular Filtration Rate > 60, Glucose Level 74, Calcium Level 8.1L, Total Bilirubin 3.1H, Direct Bilirubin 2.2H, Aspartate Amino Transf (AST/SGOT) 32, Alanine Aminotransferase (ALT/SGPT) 10L, Alkaline Phosphatase 53, Total Protein 5.7L, Albumin 1.8L, Globulin 3.9, Albumin/Globulin Ratio 0.5L 02/14/20 11:20: Vancomycin Level Trough 17.6H Height (Feet): 5 Height (Inches): 8.00 Weight (Pounds): 212 Assessment/Plan Problem List: (1) Sepsis ICD Codes: A41.9 - Sepsis, unspecified organism SNOMED: 16492131 Qualifiers: Qualified Codes: A41.9 - Sepsis, unspecified organism; R65.20 - Severe sepsis without septic shock; J96.01 - Acute respiratory failure with hypoxia (2) Aspiration pneumonia ICD Codes: J69.0 - Pneumonitis due to inhalation of food and vomit SNOMED: 806835899 Qualifiers: Qualified Codes: J69.0 - Pneumonitis due to inhalation of food and vomit (3) Tracheostomy complication ICD Codes: J95.00 - Unspecified tracheostomy complication SNOMED: 69048870 Qualifiers: Qualified Codes: J95.00 - Unspecified tracheostomy complication (4) Tracheostomy malfunction ICD Codes: J95.03 - Malfunction of tracheostomy stoma SNOMED: 015211614 Status: progressing Assessment/Plan: monitor for bleeding no improvment afebrile sepsis asp pna resp insuff check h/h Oral Crawford MD Feb 14, 2020 20:15
[2020-02-14] MEDS ORDERED: NS 275ml ONE (20:59)
[2020-02-14] MEDS ORDERED: 1/2 NS 1000ml IV ONE (20:59)
[2020-02-15] VITALS: BP 134/72
[2020-02-15] MEDS: dilTIAZem HCl 60mg tab GT SCH ×4 (00:12→17:48)
[2020-02-15] MEDS: Vancomycin 1 GM in NS 275 ML IVPB SCH ×3 (00:12→23:55)
--- NOTE | 2020-02-15 02:00 | NUR ---
NURSE NOTES: Seen pt in bed in semi- hernandez's position. No apparent distress noted. Attached to vent. O2 sat-97%. No fever noted. Oral care provided Sponge bath given. Continue to plan of care. Bed in lowest position, call light within reach.
[2020-02-15 04:00] VITALS: BP 161/75
--- NOTE | 2020-02-15 04:00 | NUR ---
NURSE NOTES: Seen pt in bed in semi- hernandez's position. No apparent distress noted. Attached to vent. O2 sat-97%. No fever noted. Oral care provided. Noted. Continue to plan of care. Bed in lowest position, call light within reach.
[2020-02-15] MEDS: Piperacillin/Tazobactam 3.375 GM in NS 110 ML IVPB SCH ×3 (05:45→21:26)
--- NOTE | 2020-02-15 07:03 | Hematology/Onc Progress Note ---
Assessment/Plan Assessment/Plan IMPRESSION/RECS: 1. Leukcytosis with underlying Left lung pneumonia. --> recommend ABX vanc/zosyn --> as per id --> wbc 18-->9 --> smear has been reviewed 2. Anemia due to chronic disease v iron deficiency --> anemia panel ordered --> transfuse prn hgb goal >7 --> occult blood --> hgb 11-->7-->9.1 3. Lactic acidemia. --> likely due to infection -> ivfs started as well 4. Tracheal bleeding. --> per surgery 5. Chronic tracheostomy. 6. Chronic vent dependence. 7. Chronic G-tube. 8. Previous CVA. 9. Dvt ppx heparin sq Appreciate consultation and Robyn Rn Subjective HEENT: Denies: no symptoms, eye pain, blurred vision, tearing, double vision, ear pain, ear discharge, nose pain, nose congestion, throat pain, throat swelling, mouth pain, mouth swelling, other Gastrointestinal/Abdominal: Denies: no symptoms, abdomen distended, abdominal pain, black stools, tarry stools, blood in stool, constipated, diarrhea, difficulty swallowing, nausea, poor appetite, poor fluid intake, rectal bleeding, vomiting, other Genitourinary: Denies: no symptoms, burning, discharge, frequency, flank pain, hematuria, incontinence, pain, urgency, other Endocrine: Denies: no symptoms, excessive sweating, flushing, intolerance to cold, intolerance to heat, increased hunger, increased thirst, increased urine, unexplained weight gain, unexplained weight loss, other Hematologic/Lymphatic: Denies: no symptoms, anemia, easy bleeding, easy bruising, adenopathy, other Allergies: Coded Allergies: No Known Allergies (Unverified , 02/11/20) Subjective 02/14 on vent, trach, no bleeding, labs are noted, robyn rn Objective Objective Current Medications Medications (Trade) Dose Ordered Sig/Natalia Route PRN Reason Start Time Stop Time Status Last Admin Dose Admin Acetaminophen (Tylenol) 650 mg Q4H PRN GT Temp >100.5 02/11/20 13:30 03/12/20 13:29 Acetaminophen (Tylenol) 650 mg Q4H PRN GT Mild Pain (Pain Scale 1-3) 02/11/20 13:45 03/12/20 13:44 Clonidine HCl (Catapres Tab) 0.1 mg Q2H PRN GT For High Blood Pressure 02/11/20 16:30 05/11/20 16:29 Diltiazem HCl (Cardizem Tab) 60 mg EVERY 6 HOURS GT 02/11/20 18:00 03/12/20 17:59 02/15/20 05:45 Heparin Sodium (Porcine) (Heparin 5000 units/ml) 5,000 units EVERY 12 HOURS SUBQ 02/12/20 21:00 03/28/20 20:59 Levetiracetam (Keppra) 1,500 mg Q12HR GT 02/11/20 21:00 03/12/20 20:59 02/14/20 20:35 Pantoprazole (Protonix) 40 mg DAILY IVP 02/13/20 09:00 03/14/20 08:59 02/14/20 09:10 Piperacillin Sod/ Tazobactam Sod 3.375 gm/Sodium Chloride 110 ml @ 27.5 mls/hr EVERY 8 HOURS IVPB 02/11/20 14:00 02/16/20 13:59 02/15/20 05:45 Sodium Chloride 1,000 ml @ 55 mls/hr [id number] IV 02/11/20 13:45 03/12/20 13:44 02/14/20 15:07 Vancomycin HCl (Vanco pharmacy to dose) 1 ea DAILY PRN MISC Per rx protocol 02/12/20 11:30 03/13/20 11:29 Vancomycin HCl 1 gm/Sodium Chloride 275 ml @ 183.708 mls/hr Q12H IVPB 02/13/20 00:00 02/18/20 00:00 02/15/20 00:12 Last 24 Hour Vital Signs Date Time Temp Pulse Resp B/P (MAP) Pulse Ox O2 Delivery O2 Flow Rate FiO2 02/15/20 05:45 62 151/72 02/15/20 04:51 68 19 40 02/15/20 04:00 45 02/15/20 04:00 97.5 70 20 161/75 (103) 98 02/15/20 04:00 Mechanical Ventilator 5.0 02/15/20 04:00 61 02/15/20 02:54 67 15 40 02/15/20 00:33 63 17 40 02/15/20 00:12 62 134/72 02/15/20 00:00 60 02/15/20 00:00 97.9 62 18 134/72 (92) 98 02/15/20 00:00 Mechanical Ventilator 5.0 02/14/20 23:00 64 14 40 02/14/20 20:37 65 16 40 02/14/20 20:00 Mechanical Ventilator 5.0 02/14/20 20:00 45 02/14/20 20:00 97.9 66 17 140/95 (110) 97 02/14/20 19:25 60 02/14/20 19:06 62 19 40 02/14/20 18:21 78 169/93 02/14/20 17:00 78 17 45 02/14/20 16:00 Mechanical Ventilator 5.0 02/14/20 16:00 66 02/14/20 16:00 45 02/14/20 16:00 97.2 72 16 169/93 (118) 100 02/14/20 15:00 60 16 45 02/14/20 13:00 62 15 45 02/14/20 12:14 110 155/86 02/14/20 12:00 97.7 110 17 155/86 (109) 100 02/14/20 12:00 Mechanical Ventilator 5.0 02/14/20 12:00 45 02/14/20 12:00 103 02/14/20 11:00 84 26 45 02/14/20 08:30 59 13 45 02/14/20 08:00 97.7 65 17 157/79 (105) 100 02/14/20 08:00 45 02/14/20 08:00 Mechanical Ventilator 5.0 02/14/20 07:52 61 02/14/20 07:00 67 13 45 02/14/20 05:12 56 128/66 02/14/20 04:59 56 12 45 02/14/20 04:00 97.6 59 18 128/66 (86) 100 02/14/20 04:00 40 02/14/20 04:00 Mechanical Ventilator 5.0 02/14/20 03:49 82 02/14/20 02:49 74 13 45 02/14/20 00:51 59 15 45 02/14/20 00:00 Mechanical Ventilator 5.0 02/14/20 00:00 55 126/60 02/14/20 00:00 98.0 54 18 149/70 (96) 100 02/13/20 22:41 55 13 45 02/13/20 20:36 52 12 45 02/13/20 20:00 56 02/13/20 20:00 Mechanical Ventilator 5.0 02/13/20 20:00 40 02/13/20 20:00 98.1 56 18 126/60 (82) 100 02/13/20 18:50 64 13 45 02/13/20 18:11 62 121/78 02/13/20 17:15 62 15 45 02/13/20 16:00 62 02/13/20 16:00 98.1 68 20 121/78 (92) 100 02/13/20 16:00 Mechanical Ventilator 5.0 02/13/20 16:00 40 02/13/20 15:30 60 15 45 02/13/20 13:20 62 17 45 02/13/20 12:20 68 149/82 02/13/20 12:00 40 02/13/20 12:00 Mechanical Ventilator 5.0 02/13/20 12:00 69 02/13/20 12:00 98.1 68 20 149/82 (104) 100 02/13/20 11:45 65 14 45 02/13/20 09:30 66 12 45 02/13/20 08:00 Mechanical Ventilator 5.0 02/13/20 08:00 97.9 68 20 136/73 (94) 100 02/13/20 08:00 40 02/13/20 08:00 67 02/13/20 07:10 76 14 45 Intake and Output 02/14/20 02/15/20 19:00 07:00 Intake Total 742.5 ml 1182.416 ml Output Total 500 ml 1200 ml Balance 242.5 ml -17.584 ml Intake Free Water 100 ml IV Total 742.5 ml 1082.416 ml Output Urine Total 500 ml 1200 ml Labs Test 02/13/20 03:10 02/13/20 11:27 02/14/20 05:36 02/14/20 05:45 White Blood Count 9.9 K/UL (4.8-10.8) 8.5 K/UL (4.8-10.8) Red Blood Count 2.39 M/UL (4.70-6.10) 2.94 M/UL (4.70-6.10) Hemoglobin 7.4 G/DL (14.2-18.0) 9.1 G/DL (14.2-18.0) Hematocrit 25.1 % (42.0-52.0) 29.9 % (42.0-52.0) Mean Corpuscular Volume 105 FL (80-99) 102 FL (80-99) Mean Corpuscular Hemoglobin 31.0 PG (27.0-31.0) 31.0 PG (27.0-31.0) Mean Corpuscular Hemoglobin Concent 29.5 G/DL (32.0-36.0) 30.4 G/DL (32.0-36.0) Red Cell Distribution Width 18.5 % (11.6-14.8) 17.3 % (11.6-14.8) Platelet Count 225 K/UL (150-450) 229 K/UL (150-450) Mean Platelet Volume 7.2 FL (6.5-10.1) 7.0 FL (6.5-10.1) Neutrophils (%) (Auto) % (45.0-75.0) 75.3 % (45.0-75.0) Lymphocytes (%) (Auto) % (20.0-45.0) 8.1 % (20.0-45.0) Monocytes (%) (Auto) % (1.0-10.0) 5.2 % (1.0-10.0) Eosinophils (%) (Auto) % (0.0-3.0) 10.7 % (0.0-3.0) Basophils (%) (Auto) % (0.0-2.0) 0.7 % (0.0-2.0) Differential Total Cells Counted 100 Neutrophils % (Manual) 83 % (45-75) Lymphocytes % (Manual) 3 % (20-45) Monocytes % (Manual) 9 % (1-10) Eosinophils % (Manual) 5 % (0-3) Basophils % (Manual) 0 % (0-2) Band Neutrophils 0 % (0-8) Platelet Estimate Adequate Platelet Morphology Normal Polychromasia 1+ Hypochromasia 1+ Anisocytosis 2+ Macrocytosis 1+ Reticulocyte Count 3.9 % (0.5-2.0) Prothrombin Time 12.4 SEC (9.30-11.50) Prothromb Time International Ratio 1.1 (0.9-1.1) Iron Level 27 ug/dL (50-175) Total Iron Binding Capacity 217 ug/dL (250-450) Percent Iron Saturation 12 % (15-50) Unsaturated Iron Binding 190 ug/dL (112-346) Ferritin 235 NG/ML (8-388) Lactate Dehydrogenase 293 U/L (81-234) Vitamin B12 Level 1674 PG/ML (193-986) Thyroid Stimulating Hormone (TSH) 0.141 uiU/mL (0.358-3.740) POC Whole Blood Glucose 75 MG/DL (74-106) Sodium Level 139 MMOL/L (136-145) Potassium Level 3.5 MMOL/L (3.5-5.1) Chloride Level 106 MMOL/L (98-107) Carbon Dioxide Level 27 MMOL/L (21-32) Anion Gap 7 mmol/L (5-15) Blood Urea Nitrogen 18 mg/dL (7-18) Creatinine 0.8 MG/DL (0.55-1.30) Estimat Glomerular Filtration Rate > 60 mL/min (>60) Glucose Level 74 MG/DL (74-106) Calcium Level 8.1 MG/DL (8.5-10.1) Total Bilirubin 3.1 MG/DL (0.2-1.0) Direct Bilirubin 2.2 MG/DL (0.0-0.3) Aspartate Amino Transf (AST/SGOT) 32 U/L (15-37) Alanine Aminotransferase (ALT/SGPT) 10 U/L (12-78) Alkaline Phosphatase 53 U/L (46-116) Total Protein 5.7 G/DL (6.4-8.2) Albumin 1.8 G/DL (3.4-5.0) Globulin 3.9 g/dL Albumin/Globulin Ratio 0.5 (1.0-2.7) Test 02/14/20 11:20 Vancomycin Level Trough 17.6 ug/mL (5.0-12.0) Height (Feet): 5 Height (Inches): 8.00 Weight (Pounds): 212 Objective Physical Exam General appearance: alert, no distress, appears stated age HEENT: Normocephalic, Teeth and gums normal trach + Lungs: clear to auscultation bilaterally Heart: regular rate and rhythm, S1, S2 normal, no murmur, click, rub or gallop Abdomen: soft, non-tender. Bowel sounds normal. No masses, ++ feeding tube Extremities: extremities normal, atraumatic, no cyanosis or edema Pulses: 2+ and symmetric Skin: Skin color, texture, turgor normal. No rashes or lesions Neurologic: Grossly normal Bryce Edgar MD Feb 15, 2020 07:03
--- NOTE | 2020-02-15 07:12 | NUR ---
NURSE HAND-OFF REPORT: Important Events on Shift:Still on NPO, Dark jacque colored urine, No bleeding noted Patient Status: Stable Diet: NPO Pending Orders: None Pending Results/Labs: None Pending MD notification: None Latest Vital Signs: Temperature 97.5 , Pulse 62 , B/P 151 /72 , Respiratory Rate 19 , O2 SAT 98 , Mechanical Ventilator, O2 Flow Rate 5.0 . Vital Sign Comment: WNL EKG Rhythm: Sinus Rhythm Rhythm change?: N MD Notified?: N - MD Response: Latest Wall Fall Score: 45 Fall Risk: High Risk Safety Measures: Call light Within Reach, Bed Alarm Zone 3, Side Rails Side Rails x3, Bed position Low and Locked. Fall Precautions: Yellow Socks Yellow Gown Door Sign Patient Fall Education Report given to [LISSA Galarza].
--- NOTE | 2020-02-15 07:50 | NUR ---
NURSE NOTES:Handoff received from LISSA James. Patient received sleeping in bed, on trach to vent with settings of: Portex 7, AC12, TV500, FI02 45% and PEEP of 5, tolerating well with no signs of distress, saturating at 100% patient communicates via facial expression, and can follow simple commands. library monitor shows HR of 55 SB. Patient is on fall, aspiration and seizure precautions, bed in the low and locked position with call light placed in patient's hand as patient has only minimal movement of the fingers. Patient is NPO. 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 Both IV sites are clean dry and intact, with the R hand running 1/2NS @ 55ML/HR. Will follow plan of care.
[2020-02-15 08:00] VITALS: BP 153/71
[2020-02-15] MEDS: Pantoprazole Inj IVP SCH (08:58)
[2020-02-15] MEDS: levETIRAcetam 500mg/5ml Liquid GT SCH ×2 (08:58→20:45)
[2020-02-15] MEDS: Heparin 5000 units/ml inj SUBQ SCH ×2 (09:00→20:44)
--- NOTE | 2020-02-15 11:15 | Pulmonology Progress Note ---
Subjective ROS Limited/Unobtainable: Yes Interval Events: No peter-tracheal bleeding; still has red tinged endo-tracheal aspirate Constitutional: Denies: fever HEENT: Repors: no symptoms Respiratory: Reports: no symptoms Cardiovascular: Reports: no symptoms Gastrointestinal/Abdominal: Reports: other - NPO Allergies: Coded Allergies: No Known Allergies (Unverified , 02/11/20) Objective Last 24 Hour Vital Signs Date Time Temp Pulse Resp B/P (MAP) Pulse Ox O2 Delivery O2 Flow Rate FiO2 02/15/20 09:11 52 13 40 02/15/20 08:44 58 02/15/20 08:00 45 02/15/20 08:00 98.2 58 14 153/71 (98) 98 02/15/20 08:00 Mechanical Ventilator 02/15/20 07:19 54 13 40 02/15/20 05:45 62 151/72 02/15/20 04:51 68 19 40 02/15/20 04:00 45 02/15/20 04:00 97.5 70 20 161/75 (103) 98 02/15/20 04:00 Mechanical Ventilator 5.0 02/15/20 04:00 61 02/15/20 02:54 67 15 40 02/15/20 00:33 63 17 40 02/15/20 00:12 62 134/72 02/15/20 00:00 60 02/15/20 00:00 97.9 62 18 134/72 (92) 98 02/15/20 00:00 Mechanical Ventilator 5.0 02/14/20 23:00 64 14 40 02/14/20 20:37 65 16 40 02/14/20 20:00 Mechanical Ventilator 5.0 02/14/20 20:00 45 02/14/20 20:00 97.9 66 17 140/95 (110) 97 02/14/20 19:25 60 02/14/20 19:06 62 19 40 02/14/20 18:21 78 169/93 02/14/20 17:00 78 17 45 02/14/20 16:00 Mechanical Ventilator 5.0 02/14/20 16:00 66 02/14/20 16:00 45 02/14/20 16:00 97.2 72 16 169/93 (118) 100 02/14/20 15:00 60 16 45 02/14/20 13:00 62 15 45 02/14/20 12:14 110 155/86 02/14/20 12:00 97.7 110 17 155/86 (109) 100 02/14/20 12:00 Mechanical Ventilator 5.0 02/14/20 12:00 45 02/14/20 12:00 103 Intake and Output 02/14/20 02/15/20 19:00 07:00 Intake Total 742.5 ml 1209.916 ml Output Total 500 ml 1200 ml Balance 242.5 ml 9.916 ml Intake Free Water 100 ml IV Total 742.5 ml 1109.916 ml Output Urine Total 500 ml 1200 ml General Appearance: no acute distress HEENT: normocephalic Respiratory: chest wall non-tender, lungs clear Cardiovascular: normal peripheral pulses Abdomen: normal bowel sounds Microbiology Date/Time Source Procedure Growth Status 02/13/20 01:30 Sputum Gram Stain - Final Resulted 02/13/20 01:30 Sputum Culture - Preliminary Gram Negative Huy Resulted Laboratory Tests 02/14/20 11:20: Vancomycin Level Trough 17.6H Current Medications Medications (Trade) Dose Ordered Sig/Natalia Route PRN Reason Start Time Stop Time Status Last Admin Dose Admin Acetaminophen (Tylenol) 650 mg Q4H PRN GT Temp >100.5 02/11/20 13:30 03/12/20 13:29 Acetaminophen (Tylenol) 650 mg Q4H PRN GT Mild Pain (Pain Scale 1-3) 02/11/20 13:45 03/12/20 13:44 Clonidine HCl (Catapres Tab) 0.1 mg Q2H PRN GT For High Blood Pressure 02/11/20 16:30 05/11/20 16:29 Diltiazem HCl (Cardizem Tab) 60 mg EVERY 6 HOURS GT 02/11/20 18:00 03/12/20 17:59 02/15/20 05:45 Heparin Sodium (Porcine) (Heparin 5000 units/ml) 5,000 units EVERY 12 HOURS SUBQ 02/12/20 21:00 03/28/20 20:59 Levetiracetam (Keppra) 1,500 mg Q12HR GT 02/11/20 21:00 03/12/20 20:59 02/15/20 08:58 Pantoprazole (Protonix) 40 mg DAILY IVP 02/13/20 09:00 03/14/20 08:59 02/15/20 08:58 Piperacillin Sod/ Tazobactam Sod 3.375 gm/Sodium Chloride 110 ml @ 27.5 mls/hr EVERY 8 HOURS IVPB 02/11/20 14:00 02/16/20 13:59 02/15/20 05:45 Sodium Chloride 1,000 ml @ 55 mls/hr [id number] IV 02/11/20 13:45 03/12/20 13:44 02/15/20 10:07 Vancomycin HCl (Vanco pharmacy to dose) 1 ea DAILY PRN MISC Per rx protocol 02/12/20 11:30 03/13/20 11:29 Vancomycin HCl 1 gm/Sodium Chloride 275 ml @ 183.708 mls/hr Q12H IVPB 02/13/20 00:00 02/18/20 00:00 02/15/20 00:12 Assessment/Plan Assessment/Plan IMPRESSION: 1. Bilateral lung pneumonia (HCAP) with pseudomonas 2. Leukocytosis. 3. Lactic acidemia. 4. Endo-tracheal bleeding/hemoptysis 5. Chronic tracheostomy. 6. Chronic vent dependence. 7. Chronic G-tube. 8. Previous CVA. DISCUSSION: Continue broad-spectrum antibiotics. Oxygen and pulmonary hygiene. Tracheostomy site is clean CT chest confirms dense bilateral pneumonia Has ongoing bloody endotracheal aspirate Will consider bronchoscopy I will follow carefully. DVT and GI prophylaxes. Kandy Golden Omar Syed MD Feb 15, 2020 11:15
--- NOTE | 2020-02-15 11:19 | NUR ---
NURSE NOTES:Patient daughter called for an update on the patient. Informed her that the patient is stable and provided visiting hours to her.
[2020-02-15 12:00] VITALS: BP 151/64
--- NOTE | 2020-02-15 14:10 | NUR ---
NURSE NOTES:family friend briefly visited patient.
--- NOTE | 2020-02-15 15:18 | General Progress Note ---
Subjective ROS Limited/Unobtainable: Yes Allergies: Coded Allergies: No Known Allergies (Unverified , 02/11/20) Objective Last 24 Hour Vital Signs Date Time Temp Pulse Resp B/P (MAP) Pulse Ox O2 Delivery O2 Flow Rate FiO2 02/15/20 13:12 61 15 40 02/15/20 12:58 75 151/64 02/15/20 12:00 98.2 75 16 151/64 (93) 99 02/15/20 12:00 66 02/15/20 12:00 Mechanical Ventilator 02/15/20 12:00 45 02/15/20 11:09 64 15 40 02/15/20 09:11 52 13 40 02/15/20 08:44 58 02/15/20 08:00 45 02/15/20 08:00 98.2 58 14 153/71 (98) 98 02/15/20 08:00 Mechanical Ventilator 02/15/20 07:19 54 13 40 02/15/20 05:45 62 151/72 02/15/20 04:51 68 19 40 02/15/20 04:00 45 02/15/20 04:00 97.5 70 20 161/75 (103) 98 02/15/20 04:00 Mechanical Ventilator 5.0 02/15/20 04:00 61 02/15/20 02:54 67 15 40 02/15/20 00:33 63 17 40 02/15/20 00:12 62 134/72 02/15/20 00:00 60 02/15/20 00:00 97.9 62 18 134/72 (92) 98 02/15/20 00:00 Mechanical Ventilator 5.0 02/14/20 23:00 64 14 40 02/14/20 20:37 65 16 40 02/14/20 20:00 Mechanical Ventilator 5.0 02/14/20 20:00 45 02/14/20 20:00 97.9 66 17 140/95 (110) 97 02/14/20 19:25 60 02/14/20 19:06 62 19 40 02/14/20 18:21 78 169/93 02/14/20 17:00 78 17 45 02/14/20 16:00 Mechanical Ventilator 5.0 02/14/20 16:00 66 02/14/20 16:00 45 02/14/20 16:00 97.2 72 16 169/93 (118) 100 Intake and Output 02/14/20 02/15/20 19:00 07:00 Intake Total 742.5 ml 1209.916 ml Output Total 500 ml 1200 ml Balance 242.5 ml 9.916 ml Intake Free Water 100 ml IV Total 742.5 ml 1109.916 ml Output Urine Total 500 ml 1200 ml Height (Feet): 5 Height (Inches): 8.00 Weight (Pounds): 212 Assessment/Plan Problem List: (1) Sepsis ICD Codes: A41.9 - Sepsis, unspecified organism SNOMED: 07781833 Qualifiers: Qualified Codes: A41.9 - Sepsis, unspecified organism; R65.20 - Severe sepsis without septic shock; J96.01 - Acute respiratory failure with hypoxia (2) Aspiration pneumonia ICD Codes: J69.0 - Pneumonitis due to inhalation of food and vomit SNOMED: 252743452 Qualifiers: Qualified Codes: J69.0 - Pneumonitis due to inhalation of food and vomit (3) Tracheostomy complication ICD Codes: J95.00 - Unspecified tracheostomy complication SNOMED: 15687838 Qualifiers: Qualified Codes: J95.00 - Unspecified tracheostomy complication (4) Tracheostomy malfunction ICD Codes: J95.03 - Malfunction of tracheostomy stoma SNOMED: 480389195 Status: progressing Assessment/Plan: tachy improved bleeding trach improved cva peg afebrile contraction is improving sepsis asp pna resp insuff check h/h Oral Crawford MD Feb 15, 2020 15:18
[2020-02-15 16:00] VITALS: BP 166/75
--- NOTE | 2020-02-15 16:00 | NUR ---
NURSE NOTES:Dr Barry rounded on patient, informed him that patient had an episode of A-fib earlier today.
--- NOTE | 2020-02-15 16:47 | Cardiac Electrophysiology PN ---
Assessment/Plan Assessment/Plan 1. Atrial fibrillation with rapid ventricular response. On Cardizem 60 mg q.6h. Off anticoagulation for tracheal bleed. In SR with first degree AVB 2. Accelerated hypertension. Off losartan 50 mg daily and on Cardizem 3. Bleeding from the trach site. Further evaluation by Surgery. S/P PRBC 4. Ventilator-respiratory failure. Further evaluation by Dr. Otero. 5. Dysphagia, status post PEG placement. 6. Elevated white count and sepsis, on IV antibiotic. DW RN Subjective Subjective BP better but trach still has minimal bleeding. Fio2 45% and PEEP 5. Objective Last 24 Hour Vital Signs Date Time Temp Pulse Resp B/P (MAP) Pulse Ox O2 Delivery O2 Flow Rate FiO2 02/15/20 16:39 59 12 40 02/15/20 16:00 66 02/15/20 16:00 Mechanical Ventilator 02/15/20 16:00 45 02/15/20 15:24 57 12 40 02/15/20 13:12 61 15 40 02/15/20 12:58 75 151/64 02/15/20 12:00 98.2 75 16 151/64 (93) 99 02/15/20 12:00 66 02/15/20 12:00 Mechanical Ventilator 02/15/20 12:00 45 02/15/20 11:09 64 15 40 02/15/20 09:11 52 13 40 02/15/20 08:44 58 02/15/20 08:00 45 02/15/20 08:00 98.2 58 14 153/71 (98) 98 02/15/20 08:00 Mechanical Ventilator 02/15/20 07:19 54 13 40 02/15/20 05:45 62 151/72 02/15/20 04:51 68 19 40 02/15/20 04:00 45 02/15/20 04:00 97.5 70 20 161/75 (103) 98 02/15/20 04:00 Mechanical Ventilator 5.0 02/15/20 04:00 61 02/15/20 02:54 67 15 40 02/15/20 00:33 63 17 40 02/15/20 00:12 62 134/72 02/15/20 00:00 60 02/15/20 00:00 97.9 62 18 134/72 (92) 98 02/15/20 00:00 Mechanical Ventilator 5.0 02/14/20 23:00 64 14 40 02/14/20 20:37 65 16 40 02/14/20 20:00 Mechanical Ventilator 5.0 02/14/20 20:00 45 02/14/20 20:00 97.9 66 17 140/95 (110) 97 02/14/20 19:25 60 02/14/20 19:06 62 19 40 02/14/20 18:21 78 169/93 02/14/20 17:00 78 17 45 Intake and Output 02/14/20 02/15/20 19:00 07:00 Intake Total 742.5 ml 1209.916 ml Output Total 500 ml 1200 ml Balance 242.5 ml 9.916 ml Intake Free Water 100 ml IV Total 742.5 ml 1109.916 ml Output Urine Total 500 ml 1200 ml Microbiology Date/Time Source Procedure Growth Status 02/13/20 01:30 Sputum Gram Stain - Final Resulted 02/13/20 01:30 Sputum Culture - Preliminary Gram Negative Huy Resulted Objective HEAD AND NECK: no JVD. Status post tracheostomy that still bleeding . LUNGS: Coarse rhonchi. CARDIOVASCULAR: Shows irregular S1 and S2 with no gallop. ABDOMEN: Soft. Status post G-tube. EXTREMITIES: No pitting edema. Laing Barry MD Feb 15, 2020 16:47
--- NOTE | 2020-02-15 17:48 | NUR ---
NURSE NOTES:Non-administered Cardizem as patient HR is SB with rate of 54
--- NOTE | 2020-02-15 18:32 | NUR ---
NURSE NOTES:Contacted Dr Crawford as patient is still NPO and there is no consult for GI. Dr Crawford stated to have Dr Chappell on the case.
--- NOTE | 2020-02-15 19:01 | Surgery Progress Note ---
Surgery Progress Note Subjective Additional Comments kylah cute events comfortable Objective Last 24 Hour Vital Signs Date Time Temp Pulse Resp B/P (MAP) Pulse Ox O2 Delivery O2 Flow Rate FiO2 02/15/20 17:48 52 166/75 02/15/20 16:39 59 12 40 02/15/20 16:00 66 02/15/20 16:00 Mechanical Ventilator 02/15/20 16:00 45 02/15/20 16:00 97.9 60 14 166/75 (105) 100 02/15/20 15:24 57 12 40 02/15/20 13:12 61 15 40 02/15/20 12:58 75 151/64 02/15/20 12:00 98.2 75 16 151/64 (93) 99 02/15/20 12:00 66 02/15/20 12:00 Mechanical Ventilator 02/15/20 12:00 45 02/15/20 11:09 64 15 40 02/15/20 09:11 52 13 40 02/15/20 08:44 58 02/15/20 08:00 45 02/15/20 08:00 98.2 58 14 153/71 (98) 98 02/15/20 08:00 Mechanical Ventilator 02/15/20 07:19 54 13 40 02/15/20 05:45 62 151/72 02/15/20 04:51 68 19 40 02/15/20 04:00 45 02/15/20 04:00 97.5 70 20 161/75 (103) 98 02/15/20 04:00 Mechanical Ventilator 5.0 02/15/20 04:00 61 02/15/20 02:54 67 15 40 02/15/20 00:33 63 17 40 02/15/20 00:12 62 134/72 02/15/20 00:00 60 02/15/20 00:00 97.9 62 18 134/72 (92) 98 02/15/20 00:00 Mechanical Ventilator 5.0 02/14/20 23:00 64 14 40 02/14/20 20:37 65 16 40 02/14/20 20:00 Mechanical Ventilator 5.0 02/14/20 20:00 45 02/14/20 20:00 97.9 66 17 140/95 (110) 97 02/14/20 19:25 60 02/14/20 19:06 62 19 40 I&O Intake and Output 02/14/20 02/15/20 19:00 07:00 Intake Total 742.5 ml 1264.916 ml Output Total 500 ml 1200 ml Balance 242.5 ml 64.916 ml Intake Free Water 100 ml IV Total 742.5 ml 1164.916 ml Output Urine Total 500 ml 1200 ml Dressing: saturated Cardiovascular: RSR Respiratory: decreased breath sounds Abdomen: non-tender, present bowel sounds Extremities: no edema, no tenderness, no cyanosis Plan Problems: (1) Sepsis (2) Aspiration pneumonia (3) Tracheostomy complication Assessment & Plan: This 84-year-old male with bleeding from tracheostomy noted in facility. Since has had some residue within the suctioning. Trach evaluated bedside no active bleeding noted. No skin issues. Mild granulation tissue. Able to manipulate and function without problem. Deep suctioning performed no active bleeding identified. Potential isolated incident we will continue to monitor over the next 2 to 3 days to ensure no active bleeding or source of bleeding that requires intervention. Thank you allowing me to participate in patient's care There is infiltrate at the left lung base. There may be some pleural fluid. The heart size is normal. There is a tracheostomy. noted some blood with suction trach okay ? bronch as per pulm Impression: Left basilar infiltrate and possible pleural fluid Tracheostomy (4) Tracheostomy malfunction Yousuf Samayoa Feb 15, 2020 19:01
--- NOTE | 2020-02-15 19:49 | NUR ---
NURSE HAND-OFF REPORT: Important Events on Shift:Patient still bleeding from tracheostomy Patient Status: Stable Diet: NPO Pending Orders: Stool OB to be collected when patient has BM. Pending Results/Labs: Pending MD notification: Latest Vital Signs: Temperature 97.9 , Pulse 69 , B/P 166 /75 , Respiratory Rate 14 , O2 SAT 100 , Mechanical Ventilator, O2 Flow Rate 5.0 . Vital Sign Comment: EKG Rhythm: Atrial Fibrillation Rhythm change?: José Miguel RICARDO Notified?: Y -Dr Jhonny RICARDO Response: No new orders Latest Wall Fall Score: 45 Fall Risk: High Risk Safety Measures: Call light Within Reach, Bed Alarm Zone 3, Side Rails Side Rails x3, Bed position Low and Locked. Fall Precautions: Yellow Socks Yellow Gown Door Sign Patient Fall Education Report given to LISSA Lehman.
--- NOTE | 2020-02-15 19:59 | NUR ---
NURSE NOTES: Patient received from LISSA Galarza. patient arousable to shaking and name but nonverbal with portex 7 on ventilator AC 12 TV 500 [id number] % PEEP 5. small amount of red secretions from trach noted. BP161/69 HR65 NSR on monitor, prn htn med for SBP >170 will continue to monitor. Right hand #22 and Left hand #22 running 1/2NS @55ml/hr. Gtube clamped and patent with no residual noted, abdomen soft round with hypoactive bowel sounds. Johnson catheter draining to gravity. Scrotal edema, BLE +2 pitting edema, BUE redness flaking and edema noted. Scrotal excoriation with right lateral malleolus and right trochanter scar noted. Patient repositioned and oral care provided.
[2020-02-15 20:00] VITALS: BP_SYST 132; BP_SYST 161; BP_DIAS 67; BP_DIAS 69
--- NOTE | 2020-02-15 20:00 | NUR ---
NURSE NOTES: Gtube clamped and patent with no residual noted. Initiated gtube feed vital AF 1.2 @10ml/hr.
[2020-02-16] VITALS (7 sets, daily range): BP systolic 147–173; BP diastolic 56–85
--- NOTE | 2020-02-16 | NUR ---
NURSE NOTES: patient asleep arousable to shaking and name but nonverbal with portex 7 on ventilator AC 12 TV 500 TpY804 % PEEP 5. BP151/65 HR60 NSR on monitor. Right hand #22 and Left hand #22 running 1/2NS @55ml/hr. Gtube running vital AF 1.2 @20ml/hr, no residual noted. Johnson catheter draining dark jacque urine. Patient repositioned and oral care provided.
[2020-02-16] MEDS: dilTIAZem HCl 60mg tab GT SCH ×5 (00:01→21:25)
--- NOTE | 2020-02-16 04:00 | NUR ---
NURSE NOTES: patient asleep arousable to shaking but nonverbal with portex 7 on ventilator AC 12 TV 500 [id number] % PEEP 5. BP173/76 HR64 NSR w/1st Degree AVB on monitor, prn clonidine administered. Right hand #22 and Left hand #22 running 1/2NS @55ml/hr. Gtube running vital AF 1.2 @30ml/hr goal, no residual noted. Johnson catheter draining dark jacque urine. Patient bathed, repositioned and oral care provided.
[2020-02-16] MEDS: Piperacillin/Tazobactam 3.375 GM in NS 110 ML IVPB SCH (05:34)
--- NOTE | 2020-02-16 06:57 | Hematology/Onc Progress Note ---
Assessment/Plan Assessment/Plan IMPRESSION/RECS: 1. Leukcytosis with underlying Left lung pneumonia. --> recommend ABX vanc/zosyn --> as per id --> wbc 18-->9 --> smear has been reviewed 2. Anemia due to chronic disease v iron deficiency --> anemia panel ordered --> transfuse prn hgb goal >7 --> occult blood --> hgb 11-->7-->9.1 3. Lactic acidemia. --> likely due to infection -> ivfs started as well 4. Tracheal bleeding. --> per surgery --> vent, improved 5. Chronic tracheostomy. 6. Chronic vent dependence. 7. Chronic G-tube. 8. Previous CVA. 9. Dvt ppx heparin sq Appreciate consultation and dW Rn Subjective Constitutional: Denies: no symptoms, chills, fever, malaise, weakness, other HEENT: Denies: no symptoms, eye pain, blurred vision, tearing, double vision, ear pain, ear discharge, nose pain, nose congestion, throat pain, throat swelling, mouth pain, mouth swelling, other Cardiovascular: Denies: no symptoms, chest pain, edema, irregular heart rate, lightheadedness, palpitations, syncope, other Respiratory: Denies: no symptoms, cough, shortness of breath, SOB with excertion, SOB at rest, sputum, wheezing, other Gastrointestinal/Abdominal: Denies: no symptoms, abdomen distended, abdominal pain, black stools, tarry stools, blood in stool, constipated, diarrhea, difficulty swallowing, nausea, poor appetite, poor fluid intake, rectal bleeding, vomiting, other Genitourinary: Denies: no symptoms, burning, discharge, frequency, flank pain, hematuria, incontinence, pain, urgency, other Neurologic/Psychiatric: Denies: no symptoms, anxiety, depressed, emotional problems, headache, numbness, paresthesia, pre-existing deficit, seizure, tingling, tremors, weakness, other Endocrine: Denies: no symptoms, excessive sweating, flushing, intolerance to cold, intolerance to heat, increased hunger, increased thirst, increased urine, unexplained weight gain, unexplained weight loss, other Hematologic/Lymphatic: Denies: no symptoms, anemia, easy bleeding, easy bruising, adenopathy, other Allergies: Coded Allergies: No Known Allergies (Unverified , 11/4/20) Subjective 02/14 on vent, trach, no bleeding, labs are noted, jacinto rn 02/15 nonverbal, vent and gtube, no major events noted Objective Objective Current Medications Medications (Trade) Dose Ordered Sig/Natalia Route PRN Reason Start Time Stop Time Status Last Admin Dose Admin Acetaminophen (Tylenol) 650 mg Q4H PRN GT Temp >100.5 02/11/20 13:30 03/12/20 13:29 Acetaminophen (Tylenol) 650 mg Q4H PRN GT Mild Pain (Pain Scale 1-3) 02/11/20 13:45 03/12/20 13:44 Clonidine HCl (Catapres Tab) 0.1 mg Q2H PRN GT For High Blood Pressure 02/11/20 16:30 05/11/20 16:29 02/16/20 04:31 Diltiazem HCl (Cardizem Tab) 60 mg EVERY 6 HOURS GT 02/11/20 18:00 03/12/20 17:59 02/16/20 05:33 Heparin Sodium (Porcine) (Heparin 5000 units/ml) 5,000 units EVERY 12 HOURS SUBQ 02/12/20 21:00 03/28/20 20:59 Levetiracetam (Keppra) 1,500 mg Q12HR GT 02/11/20 21:00 03/12/20 20:59 02/15/20 20:45 Pantoprazole (Protonix) 40 mg DAILY IVP 02/13/20 09:00 03/14/20 08:59 02/15/20 08:58 Piperacillin Sod/ Tazobactam Sod 3.375 gm/Sodium Chloride 110 ml @ 27.5 mls/hr EVERY 8 HOURS IVPB 02/11/20 14:00 02/18/20 13:59 02/16/20 05:34 Sodium Chloride 1,000 ml @ 55 mls/hr [id number] IV 02/11/20 13:45 03/12/20 13:44 02/16/20 02:35 Vancomycin HCl (Vanco pharmacy to dose) 1 ea DAILY PRN MISC Per rx protocol 02/12/20 11:30 03/13/20 11:29 Vancomycin HCl 1 gm/Sodium Chloride 275 ml @ 183.708 mls/hr Q12H IVPB 02/13/20 00:00 02/18/20 00:00 02/15/20 23:55 Last 24 Hour Vital Signs Date Time Temp Pulse Resp B/P (MAP) Pulse Ox O2 Delivery O2 Flow Rate FiO2 02/16/20 05:33 61 176/77 02/16/20 04:50 56 14 40 02/16/20 04:31 173/76 02/16/20 04:00 60 02/16/20 04:00 45 02/16/20 04:00 97.3 64 17 173/76 (108) 100 02/16/20 04:00 Mechanical Ventilator 02/16/20 03:00 60 15 40 02/16/20 00:32 54 13 40 02/16/20 00:01 62 151/65 02/16/20 00:00 Mechanical Ventilator 02/16/20 00:00 97.3 60 14 151/65 (93) 100 02/16/20 00:00 54 02/15/20 22:32 58 13 40 02/15/20 20:32 60 14 40 02/15/20 20:00 45 02/15/20 20:00 97.5 65 14 161/69 (99) 100 02/15/20 20:00 66 02/15/20 20:00 Mechanical Ventilator 02/15/20 19:00 69 14 40 02/15/20 17:48 52 166/75 02/15/20 16:39 59 12 40 02/15/20 16:00 66 02/15/20 16:00 Mechanical Ventilator 02/15/20 16:00 45 02/15/20 16:00 97.9 60 14 166/75 (105) 100 02/15/20 15:24 57 12 40 02/15/20 13:12 61 15 40 02/15/20 12:58 75 151/64 02/15/20 12:00 98.2 75 16 151/64 (93) 99 02/15/20 12:00 66 02/15/20 12:00 Mechanical Ventilator 02/15/20 12:00 45 02/15/20 11:09 64 15 40 02/15/20 09:11 52 13 40 02/15/20 08:44 58 02/15/20 08:00 45 02/15/20 08:00 98.2 58 14 153/71 (98) 98 02/15/20 08:00 Mechanical Ventilator 02/15/20 07:19 54 13 40 02/15/20 05:45 62 151/72 02/15/20 04:51 68 19 40 02/15/20 04:00 45 02/15/20 04:00 97.5 70 20 161/75 (103) 98 02/15/20 04:00 Mechanical Ventilator 5.0 02/15/20 04:00 61 02/15/20 02:54 67 15 40 02/15/20 00:33 63 17 40 02/15/20 00:12 62 134/72 02/15/20 00:00 60 02/15/20 00:00 97.9 62 18 134/72 (92) 98 02/15/20 00:00 Mechanical Ventilator 5.0 02/14/20 23:00 64 14 40 02/14/20 20:37 65 16 40 02/14/20 20:00 Mechanical Ventilator 5.0 02/14/20 20:00 45 02/14/20 20:00 97.9 66 17 140/95 (110) 97 02/14/20 19:25 60 02/14/20 19:06 62 19 40 02/14/20 18:21 78 169/93 02/14/20 17:00 78 17 45 02/14/20 16:00 Mechanical Ventilator 5.0 02/14/20 16:00 66 02/14/20 16:00 45 02/14/20 16:00 97.2 72 16 169/93 (118) 100 02/14/20 15:00 60 16 45 02/14/20 13:00 62 15 45 02/14/20 12:14 110 155/86 02/14/20 12:00 97.7 110 17 155/86 (109) 100 02/14/20 12:00 Mechanical Ventilator 5.0 02/14/20 12:00 45 02/14/20 12:00 103 02/14/20 11:00 84 26 45 02/14/20 08:30 59 13 45 02/14/20 08:00 97.7 65 17 157/79 (105) 100 02/14/20 08:00 45 02/14/20 08:00 Mechanical Ventilator 5.0 02/14/20 07:52 61 02/14/20 07:00 67 13 45 Intake and Output 02/15/20 02/16/20 19:00 07:00 Intake Total 935 ml 1332.01951 ml Output Total 1150 ml 850 ml Balance -215 ml 482.51776 ml Intake Free Water 220 ml IV Total 715 ml 1062.19546 ml Tube Feeding 210 ml Other 60 ml Output Urine Total 1150 ml 850 ml Labs Test 02/13/20 11:27 02/14/20 05:36 02/14/20 05:45 02/14/20 11:20 Reticulocyte Count 3.9 % (0.5-2.0) Prothrombin Time 12.4 SEC (9.30-11.50) Prothromb Time International Ratio 1.1 (0.9-1.1) Iron Level 27 ug/dL (50-175) Total Iron Binding Capacity 217 ug/dL (250-450) Percent Iron Saturation 12 % (15-50) Unsaturated Iron Binding 190 ug/dL (112-346) Ferritin 235 NG/ML (8-388) Lactate Dehydrogenase 293 U/L (81-234) Vitamin B12 Level 1674 PG/ML (193-986) Thyroid Stimulating Hormone (TSH) 0.141 uiU/mL (0.358-3.740) POC Whole Blood Glucose 75 MG/DL (74-106) White Blood Count 8.5 K/UL (4.8-10.8) Red Blood Count 2.94 M/UL (4.70-6.10) Hemoglobin 9.1 G/DL (14.2-18.0) Hematocrit 29.9 % (42.0-52.0) Mean Corpuscular Volume 102 FL (80-99) Mean Corpuscular Hemoglobin 31.0 PG (27.0-31.0) Mean Corpuscular Hemoglobin Concent 30.4 G/DL (32.0-36.0) Red Cell Distribution Width 17.3 % (11.6-14.8) Platelet Count 229 K/UL (150-450) Mean Platelet Volume 7.0 FL (6.5-10.1) Neutrophils (%) (Auto) 75.3 % (45.0-75.0) Lymphocytes (%) (Auto) 8.1 % (20.0-45.0) Monocytes (%) (Auto) 5.2 % (1.0-10.0) Eosinophils (%) (Auto) 10.7 % (0.0-3.0) Basophils (%) (Auto) 0.7 % (0.0-2.0) Sodium Level 139 MMOL/L (136-145) Potassium Level 3.5 MMOL/L (3.5-5.1) Chloride Level 106 MMOL/L (98-107) Carbon Dioxide Level 27 MMOL/L (21-32) Anion Gap 7 mmol/L (5-15) Blood Urea Nitrogen 18 mg/dL (7-18) Creatinine 0.8 MG/DL (0.55-1.30) Estimat Glomerular Filtration Rate > 60 mL/min (>60) Glucose Level 74 MG/DL (74-106) Calcium Level 8.1 MG/DL (8.5-10.1) Total Bilirubin 3.1 MG/DL (0.2-1.0) Direct Bilirubin 2.2 MG/DL (0.0-0.3) Aspartate Amino Transf (AST/SGOT) 32 U/L (15-37) Alanine Aminotransferase (ALT/SGPT) 10 U/L (12-78) Alkaline Phosphatase 53 U/L (46-116) Total Protein 5.7 G/DL (6.4-8.2) Albumin 1.8 G/DL (3.4-5.0) Globulin 3.9 g/dL Albumin/Globulin Ratio 0.5 (1.0-2.7) Vancomycin Level Trough 17.6 ug/mL (5.0-12.0) Test 02/16/20 04:06 Height (Feet): 5 Height (Inches): 8.00 Weight (Pounds): 212 Objective Physical Exam General appearance: alert, no distress, appears stated age HEENT: Normocephalic, Teeth and gums normal trach + Lungs: clear to auscultation bilaterally Heart: regular rate and rhythm, S1, S2 normal, no murmur, click, rub or gallop Abdomen: soft, non-tender. Bowel sounds normal. No masses, ++ feeding tube Extremities: extremities normal, atraumatic, no cyanosis or edema Pulses: 2+ and symmetric Skin: Skin color, texture, turgor normal. No rashes or lesions Neurologic: Grossly normal Bryce Edgar MD Feb 16, 2020 06:57
[2020-02-16 07:10] LABS: BASOPHILS % (AUTO) 0.8 % (0.0-2.0); EOSINOPHILS % (AUTO) 12.3 % (0.0-3.0); HEMATOCRIT 32.2 % (42.0-52.0); HEMOGLOBIN 9.7 G/DL (14.2-18.0); LYMPHOCYTES % (AUTO) 9.6 % (20.0-45.0); MEAN CORPUSCULAR VOLUME 102 FL (80-99); MONOCYTES % (AUTO) 6.4 % (1.0-10.0); NEUTROPHILS % (AUTO) 70.9 % (45.0-75.0); PLATELET COUNT 232 K/UL (150-450); RED BLOOD COUNT 3.16 M/UL (4.70-6.10); RED CELL DISTRIBUTION WIDTH 17.7 % (11.6-14.8); WHITE BLOOD COUNT 6.3 K/UL (4.8-10.8)
--- NOTE | 2020-02-16 07:10 | NUR ---
NURSE HAND-OFF REPORT: Important Events on Shift:clonidine given for hypertensive episode Patient Status: Diet: Vital AF 1.2@30ml/hr Pending Orders: stool ob Pending Results/Labs:cbc/cmp Pending MD notification: Latest Vital Signs: Temperature 97.3 , Pulse 61 , B/P 176 /77 , Respiratory Rate 14 , O2 SAT 100 , Mechanical Ventilator, O2 Flow Rate 5.0 . Vital Sign Comment: WNL EKG Rhythm: NSR w/1st Degree AVB Rhythm change?: N Notified?: José Miguel Barry MD Response: Latest Wall Fall Score: 45 Fall Risk: High Risk Safety Measures: Call light Within Reach, Bed Alarm Zone 3, Side Rails Side Rails x3, Bed position Low and Locked. Fall Precautions: Yellow Socks Yellow Gown Door Sign Patient Fall Education Report given to Fatuma RN.
[2020-02-16 07:22] LABS: ANION GAP 8 mmol/L (5-15); BLOOD UREA NITROGEN 9 mg/dL (7-18); CALCIUM 7.9 MG/DL (8.5-10.1); CARBON DIOXIDE 27 MMOL/L (21-32); CHLORIDE 106 MMOL/L (98-107); CREATININE 0.7 MG/DL (0.55-1.30); POTASSIUM 3.1 MMOL/L (3.5-5.1); SODIUM 141 MMOL/L (136-145)
--- NOTE | 2020-02-16 07:25 | NUR ---
NURSE NOTES: Received report from LISSA Lehman. Patient is resting in bed, in stable condition. No s/sx of SOB, breathing is even and unlabored. Patient is sleeping, no presence of discomfort or pain at this time. Patient noted bilateral upper and lower extremity edema. Bed is in lowest position, brakes engaged. Call light is kept within easy reach. Will continue to monitor patient.
--- NOTE | 2020-02-16 07:45 | NUR ---
NURSE NOTES: No bleeding noted at trach site. Will continue to monitor patient.
[2020-02-16] MEDS: Heparin 5000 units/ml inj SUBQ SCH ×2 (08:00→20:16)
[2020-02-16] MEDS: Pantoprazole Inj IVP SCH (08:28)
[2020-02-16] MEDS: levETIRAcetam 500mg/5ml Liquid GT SCH ×2 (08:29→21:26)
--- NOTE | 2020-02-16 09:57 | Consultation ---
Consult Note Consult Note I am asked to evaluate the patient at the request of Dr. Raphael for fluid and electrolyte management Patient seen in room 242 [address] Discussed with Jitendra the RN Chart reviewed, including the labs and medications Patient examined 84-year-old male history of CVA, trach, PEG vent dependent presents with bleeding trach prior to arrival, cleared up with some suctioning, no known aggravating relieving factors severity was severe lasting minutes to hours, patient apparently had a desaturation event as well that improved with suctioning patient presents for evaluation and treatment Allergies: No Known Allergies (Unverified , 02/11/20) COVID-19 Screening Contact w/high risk pt: No Experienced COVID-19 symptoms?: No COVID-19 Testing performed CERTIFIED NOVELL ADMINISTRATOR: No Limited by: medical condition - 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 All Other Systems: limited - 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 PHYSICAL EXAMINATION: VITAL SIGNS: Blood pressure was 208/120, pulse is 80, was as high as 140 during atrial fibrillation, respirations of 30. HEAD AND NECK: Showed no JVD. Status post tracheostomy. LUNGS: Coarse rhonchi. CARDIOVASCULAR: Shows irregular S1 and S2 with no gallop. ABDOMEN: Soft. Status post G-tube. EXTREMITIES: No pitting edema. LABORATORY DATA: His labs show white count of 18.4, hemoglobin of 11, hematocrit 36, and platelet count of 425. Sodium 139, potassium 4.4, BUN of 18, creatinine of 0.9, and glucose of 191. Troponin is negative. . Assessment/Plan Electrolyte imbalance, hypokalemia Normal BUN/creatinine Sepsis leukocytosis tachycardia with left-sided pneumonia Tracheostomy complication with bleeding Anemia Ventilator dependent respiratory failure Atrial fibrillation PEG Potassium supplement Monitor electrolytes and chemistries Discontinue IV fluid Adjust blood pressure medication Per orders Continue per consultants Tano Longoria MD Feb 16, 2020 09:57
--- NOTE | 2020-02-16 09:59 | Cardiology Report ---
APPROVED REPORT EXAM: Two-dimensional and M-mode echocardiogram with Doppler and color Doppler. INDICATION Congestive Heart Failure M-Mode DIMENSIONS IVSd1.4 (0.7-1.1cm)Left Atrium (MM)6.0 (1.6-4.0cm) LVDd5.6 (3.5-5.6cm)Aortic Root2.7 (2.0-3.7cm) PWd1.5 (0.7-1.1cm)Aortic Cusp Exc.1.4 (1.5-2.0cm) IVSs1.8 cm LVDs3.9 (2.5-4.0cm) PWs1.6 cm <Conclusion> Technically difficult study due to poor acoustical windows. Normal left ventricular chamber size, systolic function and wall motion to extent visualized. Left ventricular ejection fraction estimated to be 55-60 %. No evidence of left ventricular hypertrophy. Anterior Echo-free space, may be due to pericardial fat or effusion. Mild left atrial enlargement. Right cardiac chamber sizes are within normal limits. Aortic valve calcification with decreased cusp excursion c/w aortic stenosis. Moderate thickened mitral valve leaflets with reduced excursion. Moderate mitral annulus and aortic root calcification. Pulmonic valve not well visualized. Normal tricuspid valve structure. IVC at measured at size 2.2 cm with slight physiologic collapse. A color flow and spectral Doppler study was performed and revealed: No aortic regurgitation. Peak aortic valve gradient of 47 mm Hg and a mean of 26 mmHg. Aortic valve area 0.6 cm2 calculated by continuity equation C/W severe aortic stenosis. Moderate mitral regurgitation. Peak mitral valve gradient of 8 mm Hg and a mean of 4 mmHg. Mitral diastolic velocities of E & A equalization & Tissue Doppler Imaging suggest Mild Moderate tricuspid regurgitation. Tricuspid systolic velocities suggests peak right ventricular systolic pressure of 63 mmHg,consistent with severe pulmonary hypertension.
--- NOTE | 2020-02-16 10:00 | NUR ---
NURSE NOTES: Patient noted with potassium level of 3.1 today, contacted Dr. Crawford of assessments, per Dr. Crawford contact Dr. Longoria for new orders. Dr. Longoria at nurse station and made aware of new nephrology consult per Dr. Crawford and reason for consult regarding low potassium level of 3.1. Dr. Longoria acknowledged and informed this nurse they will look at patient's labs. Noted. Will continue to monitor patient.
--- NOTE | 2020-02-16 10:05 | NUR ---
RD ASSESSMENT & RECOMMENDATIONS SEE CARE ACTIVITY FOR COMPLETE ASSESSMENT DAILY ESTIMATED NEEDS: Needs based on Critical care, wound/ 76kg abw 22-28 kcals/kg [id number] total kcals 1.25-2 g protein/kg 95-152 g total protein 25-30 mL/kg [id number] total fluid mLs NUTRITION DIAGNOSIS: * Swallowing difficulty R/T respiratory status as evidenced by trach/vent dep, PEG dep, NPO at this time. * Increased kcal/prot/micronutrients needs R/T wound healing as evidenced by pt admitted w/ stage 3 R lateral ankle wound. CURRENT TF: Vital @30 ENTERAL NUTRITION RECOMMENDATIONS: Glucerna 1.5 @ 55ml/hr x 24 hrs to provide 1320ml, 1980kcal, 109g prot, 1002ml free water * As medically appropriate, initiate Glucerna 1.5 @ 25ml/hr x 6hrs * Advance 10ml q 4-6 hrs as tolerated to goal rate * HOB over 30 degrees/ water flush per MD ADDITIONAL RECOMMENDATIONS: * Calibrated bedscale wt * Wound healing: TF rec @ goal provides 100% RDI add Vit C 500mg QD, ZnSO4 220mg QD x 10 days Yuriy BID via PEG w/ TF order * Monitor BGs, need for NISS * K low, rec repletion
--- NOTE | 2020-02-16 10:57 | NUR ---
NURSE NOTES: Patient noted with heart rate as low as 49 bpm, sinus bradycardia, BP 147/57. Patient noted on Cardizem 60 mg GT Q6HR and noted with no holding parameters. Contacted Dr. Barry and reported assessments, Dr. Barry acknowledged and ordered to change Cardizem 60 mg GT Q6HR order to Cardizem 60 mg GT Q8HR and hold medication for heart rate less than 55 bpm. Orders entered, noted, and carried out. Will continue to monitor patient.
--- NOTE | 2020-02-16 10:58 | Pulmonology Progress Note ---
Subjective ROS Limited/Unobtainable: Yes Interval Events: No peter-tracheal bleeding; still has red tinged endo-tracheal aspirate Constitutional: Denies: fever HEENT: Repors: no symptoms Respiratory: Reports: no symptoms Cardiovascular: Reports: no symptoms Gastrointestinal/Abdominal: Reports: other - NPO Allergies: Coded Allergies: No Known Allergies (Unverified , 02/11/20) Objective Last 24 Hour Vital Signs Date Time Temp Pulse Resp B/P (MAP) Pulse Ox O2 Delivery O2 Flow Rate FiO2 02/16/20 09:25 56 14 40 02/16/20 08:00 Mechanical Ventilator 02/16/20 08:00 45 02/16/20 08:00 51 02/16/20 07:56 96.4 53 17 147/57 (87) 100 02/16/20 06:57 54 12 40 02/16/20 05:33 61 176/77 02/16/20 04:50 56 14 40 02/16/20 04:31 173/76 02/16/20 04:00 60 02/16/20 04:00 45 02/16/20 04:00 97.3 64 17 173/76 (108) 100 02/16/20 04:00 Mechanical Ventilator 02/16/20 03:00 60 15 40 02/16/20 00:32 54 13 40 02/16/20 00:01 62 151/65 02/16/20 00:00 Mechanical Ventilator 02/16/20 00:00 97.3 60 14 151/65 (93) 100 02/16/20 00:00 54 02/15/20 22:32 58 13 40 02/15/20 20:32 60 14 40 02/15/20 20:00 45 02/15/20 20:00 97.5 65 14 161/69 (99) 100 02/15/20 20:00 66 02/15/20 20:00 Mechanical Ventilator 02/15/20 19:00 69 14 40 02/15/20 17:48 52 166/75 02/15/20 16:39 59 12 40 02/15/20 16:00 66 02/15/20 16:00 Mechanical Ventilator 02/15/20 16:00 45 02/15/20 16:00 97.9 60 14 166/75 (105) 100 02/15/20 15:24 57 12 40 02/15/20 13:12 61 15 40 02/15/20 12:58 75 151/64 02/15/20 12:00 98.2 75 16 151/64 (93) 99 02/15/20 12:00 66 02/15/20 12:00 Mechanical Ventilator 02/15/20 12:00 45 02/15/20 11:09 64 15 40 Intake and Output 02/15/20 02/16/20 19:00 07:00 Intake Total 935 ml 1444.59166 ml Output Total 1150 ml 850 ml Balance -215 ml 594.54124 ml Intake Free Water 220 ml IV Total 715 ml 1144.31642 ml Tube Feeding 240 ml Other 60 ml Output Urine Total 1150 ml 850 ml General Appearance: no acute distress HEENT: normocephalic Respiratory: chest wall non-tender, lungs clear Cardiovascular: normal peripheral pulses Abdomen: normal bowel sounds Laboratory Tests 02/16/20 04:06: White Blood Count 6.3, Red Blood Count 3.16L, Hemoglobin 9.7L, Hematocrit 32.2L, Mean Corpuscular Volume 102H, Mean Corpuscular Hemoglobin 30.6, Mean Corpuscular Hemoglobin Concent 30.0L, Red Cell Distribution Width 17.7H, Platelet Count 232, Mean Platelet Volume 6.5, Neutrophils (%) (Auto) 70.9, Lymphocytes (%) (Auto) 9.6L, Monocytes (%) (Auto) 6.4, Eosinophils (%) (Auto) 12.3H, Basophils (%) (Auto) 0.8, Sodium Level 141, Potassium Level 3.1L, Chloride Level 106, Carbon Dioxide Level 27, Anion Gap 8, Blood Urea Nitrogen 9, Creatinine 0.7, Estimat Glomerular Filtration Rate > 60, Glucose Level 74, Calcium Level 7.9L Current Medications Medications (Trade) Dose Ordered Sig/Natalia Route PRN Reason Start Time Stop Time Status Last Admin Dose Admin Acetaminophen (Tylenol) 650 mg Q4H PRN GT Temp >100.5 02/11/20 13:30 03/12/20 13:29 Acetaminophen (Tylenol) 650 mg Q4H PRN GT Mild Pain (Pain Scale 1-3) 02/11/20 13:45 03/12/20 13:44 Diltiazem HCl (Cardizem Tab) 60 mg Q8HR GT 02/16/20 14:00 12/4/20 17:59 UNV Heparin Sodium (Porcine) (Heparin 5000 units/ml) 5,000 units EVERY 12 HOURS SUBQ 02/12/20 21:00 03/28/20 20:59 Hydralazine HCl (Apresoline) 10 mg Q4H PRN IV BP over 160 syst 02/16/20 10:10 05/16/20 10:09 Levetiracetam (Keppra) 1,500 mg Q12HR GT 02/11/20 21:00 03/12/20 20:59 02/16/20 08:29 Pantoprazole (Protonix) 40 mg DAILY IVP 02/13/20 09:00 03/14/20 08:59 02/16/20 08:28 Piperacillin Sod/ Tazobactam Sod 3.375 gm/Sodium Chloride 110 ml @ 27.5 mls/hr EVERY 8 HOURS IVPB 02/11/20 14:00 02/18/20 13:59 02/16/20 05:34 Potassium Chloride 100 ml @ 100 mls/hr Q1H IVPB 02/16/20 10:00 02/16/20 13:59 02/16/20 10:09 Vancomycin HCl (Vanco pharmacy to dose) 1 ea DAILY PRN MISC Per rx protocol 02/12/20 11:30 03/13/20 11:29 Vancomycin HCl 1 gm/Sodium Chloride 275 ml @ 183.708 mls/hr Q12H IVPB 02/13/20 00:00 02/18/20 00:00 02/15/20 23:55 Assessment/Plan Assessment/Plan IMPRESSION: 1. Bilateral lung pneumonia (HCAP) with pseudomonas 2. Leukocytosis. 3. Lactic acidemia. 4. Endo-tracheal bleeding/hemoptysis 5. Chronic tracheostomy. 6. Chronic vent dependence. 7. Chronic G-tube. 8. Previous CVA. DISCUSSION: Continue broad-spectrum antibiotics. Oxygen and pulmonary hygiene. Tracheostomy site is clean CT chest confirms dense bilateral pneumonia Has ongoing bloody endotracheal aspirate Will consider bronchoscopy I will follow carefully. DVT and GI prophylaxes. Kandy Golden Omar Syed MD Feb 16, 2020 10:58
--- NOTE | 2020-02-16 11:13 | Infectious Diseases Prog Note ---
Assessment/Plan Assessment/Plan IMPRESSION: Sepsis with Staph aureus (MRSA) Pseudomonas pneumonia, Tracheostomy complication with bleeding. 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 Subjective ROS Limited/Unobtainable: Yes Allergies: Coded Allergies: No Known Allergies (Unverified , 02/11/20) Objective Last 24 Hour Vital Signs Date Time Temp Pulse Resp B/P (MAP) Pulse Ox O2 Delivery O2 Flow Rate FiO2 02/16/20 11:01 70 23 40 02/16/20 09:25 56 14 40 02/16/20 08:00 Mechanical Ventilator 02/16/20 08:00 45 02/16/20 08:00 51 02/16/20 07:56 96.4 53 17 147/57 (87) 100 02/16/20 06:57 54 12 40 02/16/20 05:33 61 176/77 02/16/20 04:50 56 14 40 02/16/20 04:31 173/76 02/16/20 04:00 60 02/16/20 04:00 45 02/16/20 04:00 97.3 64 17 173/76 (108) 100 02/16/20 04:00 Mechanical Ventilator 02/16/20 03:00 60 15 40 02/16/20 00:32 54 13 40 02/16/20 00:01 62 151/65 02/16/20 00:00 Mechanical Ventilator 02/16/20 00:00 97.3 60 14 151/65 (93) 100 02/16/20 00:00 54 02/15/20 22:32 58 13 40 02/15/20 20:32 60 14 40 02/15/20 20:00 45 02/15/20 20:00 97.5 65 14 161/69 (99) 100 02/15/20 20:00 66 02/15/20 20:00 Mechanical Ventilator 02/15/20 19:00 69 14 40 02/15/20 17:48 52 166/75 02/15/20 16:39 59 12 40 02/15/20 16:00 66 02/15/20 16:00 Mechanical Ventilator 02/15/20 16:00 45 02/15/20 16:00 97.9 60 14 166/75 (105) 100 02/15/20 15:24 57 12 40 02/15/20 13:12 61 15 40 02/15/20 12:58 75 151/64 02/15/20 12:00 98.2 75 16 151/64 (93) 99 02/15/20 12:00 66 02/15/20 12:00 Mechanical Ventilator 02/15/20 12:00 45 02/15/20 11:09 64 15 40 Height (Feet): 5 Height (Inches): 8.00 Weight (Pounds): 212 HEENT: status post trach, other - icterus sclera Respiratory/Chest: lungs clear, other - on ventilator Cardiovascular: normal rate Abdomen: soft, non tender, other - GT feding Extremities: other - legd edems Neurologic/Psychiatric: other - open s eyes Laboratory Tests Test 02/16/20 04:06 White Blood Count 6.3 K/UL (4.8-10.8) Red Blood Count 3.16 M/UL (4.70-6.10) L Hemoglobin 9.7 G/DL (14.2-18.0) L Hematocrit 32.2 % (42.0-52.0) L Mean Corpuscular Volume 102 FL (80-99) H Mean Corpuscular Hemoglobin 30.6 PG (27.0-31.0) Mean Corpuscular Hemoglobin Concent 30.0 G/DL (32.0-36.0) L Red Cell Distribution Width 17.7 % (11.6-14.8) H Platelet Count 232 K/UL (150-450) Mean Platelet Volume 6.5 FL (6.5-10.1) Neutrophils (%) (Auto) 70.9 % (45.0-75.0) Lymphocytes (%) (Auto) 9.6 % (20.0-45.0) L Monocytes (%) (Auto) 6.4 % (1.0-10.0) Eosinophils (%) (Auto) 12.3 % (0.0-3.0) H Basophils (%) (Auto) 0.8 % (0.0-2.0) Sodium Level 141 MMOL/L (136-145) Potassium Level 3.1 MMOL/L (3.5-5.1) L Chloride Level 106 MMOL/L (98-107) Carbon Dioxide Level 27 MMOL/L (21-32) Anion Gap 8 mmol/L (5-15) Blood Urea Nitrogen 9 mg/dL (7-18) Creatinine 0.7 MG/DL (0.55-1.30) Estimat Glomerular Filtration Rate > 60 mL/min (>60) Glucose Level 74 MG/DL (74-106) Calcium Level 7.9 MG/DL (8.5-10.1) L Current Medications Medications (Trade) Dose Ordered Sig/Natalia Route PRN Reason Start Time Stop Time Status Last Admin Dose Admin Acetaminophen (Tylenol) 650 mg Q4H PRN GT Temp >100.5 02/11/20 13:30 03/12/20 13:29 Acetaminophen (Tylenol) 650 mg Q4H PRN GT Mild Pain (Pain Scale 1-3) 02/11/20 13:45 03/12/20 13:44 Diltiazem HCl (Cardizem Tab) 60 mg Q8HR GT 02/16/20 14:00 03/12/20 17:59 Heparin Sodium (Porcine) (Heparin 5000 units/ml) 5,000 units EVERY 12 HOURS SUBQ 02/12/20 21:00 03/28/20 20:59 Hydralazine HCl (Apresoline) 10 mg Q4H PRN IV BP over 160 syst 02/16/20 10:10 05/16/20 10:09 Levetiracetam (Keppra) 1,500 mg Q12HR GT 02/11/20 21:00 03/12/20 20:59 02/16/20 08:29 Pantoprazole (Protonix) 40 mg DAILY IVP 02/13/20 09:00 03/14/20 08:59 02/16/20 08:28 Piperacillin Sod/ Tazobactam Sod 3.375 gm/Sodium Chloride 110 ml @ 27.5 mls/hr EVERY 8 HOURS IVPB 02/11/20 14:00 02/18/20 13:59 02/16/20 05:34 Potassium Chloride 100 ml @ 100 mls/hr Q1H IVPB 02/16/20 10:00 02/16/20 13:59 02/16/20 10:09 Vancomycin HCl (Vanco pharmacy to dose) 1 ea DAILY PRN MISC Per rx protocol 02/12/20 11:30 03/13/20 11:29 Vancomycin HCl 1 gm/Sodium Chloride 275 ml @ 183.708 mls/hr Q12H IVPB 02/13/20 00:00 02/18/20 00:00 02/15/20 23:55 Ulises Vasquez MD Feb 16, 2020 11:13
[2020-02-16] MEDS: Levofloxacin 750mg tab GT SCH (11:59)
[2020-02-16] MEDS: Vancomycin 1 GM in NS 275 ML IVPB SCH (12:08)
--- NOTE | 2020-02-16 15:06 | Cardiac Electrophysiology PN ---
Assessment/Plan Assessment/Plan 1. Atrial fibrillation with rapid ventricular response. Decrease Cardizem to 60 mg tid as was getting rizwana Off anticoagulation for tracheal bleed. In SR with first degree AVB 2. Accelerated hypertension. Off losartan 50 mg daily and Cardizem 3. Bleeding from the trach site. Further evaluation by Surgery. S/P PRBC 4. Ventilator-respiratory failure. Further evaluation by Dr. Otero. 5. Dysphagia, status post PEG placement. 6. Elevated white count and sepsis, on IV antibiotic. DW RN Subjective Subjective BP better but trach still has minimal bleeding. Fio2 45% and PEEP 5. Getting rizwana in 50s and Cardizem was decreased. Objective Last 24 Hour Vital Signs Date Time Temp Pulse Resp B/P (MAP) Pulse Ox O2 Delivery O2 Flow Rate FiO2 02/16/20 14:00 54 154/56 02/16/20 12:49 55 14 40 02/16/20 12:29 70 23 100 Mechanical Ventilator 40 02/16/20 12:00 52 02/16/20 12:00 Mechanical Ventilator 02/16/20 12:00 45 02/16/20 11:43 98.0 56 17 154/56 (88) 100 02/16/20 11:01 70 23 40 02/16/20 09:25 56 14 40 02/16/20 08:00 Mechanical Ventilator 02/16/20 08:00 45 02/16/20 08:00 51 02/16/20 07:56 96.4 53 17 147/57 (87) 100 02/16/20 06:57 54 12 40 02/16/20 05:33 61 176/77 02/16/20 04:50 56 14 40 02/16/20 04:31 173/76 02/16/20 04:00 60 02/16/20 04:00 45 02/16/20 04:00 97.3 64 17 173/76 (108) 100 02/16/20 04:00 Mechanical Ventilator 02/16/20 03:00 60 15 40 02/16/20 00:32 54 13 40 02/16/20 00:01 62 151/65 02/16/20 00:00 Mechanical Ventilator 02/16/20 00:00 97.3 60 14 151/65 (93) 100 02/16/20 00:00 54 02/15/20 22:32 58 13 40 02/15/20 20:32 60 14 40 02/15/20 20:00 45 02/15/20 20:00 97.5 65 14 161/69 (99) 100 02/15/20 20:00 66 02/15/20 20:00 Mechanical Ventilator 02/15/20 19:00 69 14 40 02/15/20 17:48 52 166/75 02/15/20 16:39 59 12 40 02/15/20 16:00 66 02/15/20 16:00 Mechanical Ventilator 02/15/20 16:00 45 02/15/20 16:00 97.9 60 14 166/75 (105) 100 02/15/20 15:24 57 12 40 Intake and Output 02/15/20 02/16/20 19:00 07:00 Intake Total 935 ml 1444.02751 ml Output Total 1150 ml 850 ml Balance -215 ml 594.00802 ml Intake Free Water 220 ml IV Total 715 ml 1144.03613 ml Tube Feeding 240 ml Other 60 ml Output Urine Total 1150 ml 850 ml Laboratory Tests Test 02/16/20 04:06 White Blood Count 6.3 K/UL (4.8-10.8) Red Blood Count 3.16 M/UL (4.70-6.10) L Hemoglobin 9.7 G/DL (14.2-18.0) L Hematocrit 32.2 % (42.0-52.0) L Mean Corpuscular Volume 102 FL (80-99) H Mean Corpuscular Hemoglobin 30.6 PG (27.0-31.0) Mean Corpuscular Hemoglobin Concent 30.0 G/DL (32.0-36.0) L Red Cell Distribution Width 17.7 % (11.6-14.8) H Platelet Count 232 K/UL (150-450) Mean Platelet Volume 6.5 FL (6.5-10.1) Neutrophils (%) (Auto) 70.9 % (45.0-75.0) Lymphocytes (%) (Auto) 9.6 % (20.0-45.0) L Monocytes (%) (Auto) 6.4 % (1.0-10.0) Eosinophils (%) (Auto) 12.3 % (0.0-3.0) H Basophils (%) (Auto) 0.8 % (0.0-2.0) Sodium Level 141 MMOL/L (136-145) Potassium Level 3.1 MMOL/L (3.5-5.1) L Chloride Level 106 MMOL/L (98-107) Carbon Dioxide Level 27 MMOL/L (21-32) Anion Gap 8 mmol/L (5-15) Blood Urea Nitrogen 9 mg/dL (7-18) Creatinine 0.7 MG/DL (0.55-1.30) Estimat Glomerular Filtration Rate > 60 mL/min (>60) Glucose Level 74 MG/DL (74-106) Calcium Level 7.9 MG/DL (8.5-10.1) L Objective HEAD AND NECK: No JVD. Status post tracheostomy LUNGS: Coarse rhonchi. CARDIOVASCULAR: Shows irregular S1 and S2 with no gallop. ABDOMEN: Soft. Status post G-tube. EXTREMITIES: No pitting edema. Liang Barry MD Feb 16, 2020 15:06
--- NOTE | 2020-02-16 16:35 | NUR ---
CASE MANAGEMENT:REVIEW 02/16/20 SI: BILATERAL PNA BLOODY ENDOTRACHEAL SECRETIONS. TRACH /VENT 96.9 49 17 148/60 100% ON VENT SUPPORT W/45% FIO2 K-3.1 IS: IV KCL Q1HRS X4 BAGS LEVAQUIN GT QD IV VANCOMYCIN Q12 HEPARIN SQ Q12 KEPPRA GT Q12 : STEP DOWN UNIT DCP: FROM [facility]
--- NOTE | 2020-02-16 17:06 | Surgery Progress Note ---
Surgery Progress Note Subjective Additional Comments no bleeding labs noted no n/v Objective Last 24 Hour Vital Signs Date Time Temp Pulse Resp B/P (MAP) Pulse Ox O2 Delivery O2 Flow Rate FiO2 02/16/20 16:00 45 02/16/20 16:00 Mechanical Ventilator 02/16/20 16:00 54 02/16/20 15:56 97.9 61 17 157/85 (109) 100 02/16/20 15:10 49 12 40 02/16/20 14:00 54 154/56 02/16/20 12:49 55 14 40 02/16/20 12:29 70 23 100 Mechanical Ventilator 40 02/16/20 12:00 52 02/16/20 12:00 Mechanical Ventilator 02/16/20 12:00 45 02/16/20 11:43 98.0 56 17 154/56 (88) 100 02/16/20 11:01 70 23 40 02/16/20 09:25 56 14 40 02/16/20 08:00 Mechanical Ventilator 02/16/20 08:00 96.9 49 17 148/60 (89) 100 02/16/20 08:00 45 02/16/20 08:00 51 02/16/20 07:56 96.4 53 17 147/57 (87) 100 02/16/20 06:57 54 12 40 02/16/20 05:33 61 176/77 02/16/20 04:50 56 14 40 02/16/20 04:31 173/76 02/16/20 04:00 60 02/16/20 04:00 45 02/16/20 04:00 97.3 64 17 173/76 (108) 100 02/16/20 04:00 Mechanical Ventilator 02/16/20 03:00 60 15 40 02/16/20 00:32 54 13 40 02/16/20 00:01 62 151/65 02/16/20 00:00 Mechanical Ventilator 02/16/20 00:00 97.3 60 14 151/65 (93) 100 02/16/20 00:00 54 02/15/20 22:32 58 13 40 02/15/20 20:32 60 14 40 02/15/20 20:00 45 02/15/20 20:00 97.5 65 14 161/69 (99) 100 02/15/20 20:00 66 02/15/20 20:00 Mechanical Ventilator 02/15/20 19:00 69 14 40 02/15/20 17:48 52 166/75 I&O Intake and Output 02/15/20 02/16/20 19:00 07:00 Intake Total 935 ml 1444.16567 ml Output Total 1150 ml 850 ml Balance -215 ml 594.27703 ml Intake Free Water 220 ml IV Total 715 ml 1144.28100 ml Tube Feeding 240 ml Other 60 ml Output Urine Total 1150 ml 850 ml Dressing: saturated Cardiovascular: RSR Respiratory: decreased breath sounds Abdomen: non-tender, present bowel sounds Extremities: no edema, no tenderness, no cyanosis Laboratory Tests Test 02/16/20 04:06 White Blood Count 6.3 K/UL (4.8-10.8) Red Blood Count 3.16 M/UL (4.70-6.10) L Hemoglobin 9.7 G/DL (14.2-18.0) L Hematocrit 32.2 % (42.0-52.0) L Mean Corpuscular Volume 102 FL (80-99) H Mean Corpuscular Hemoglobin 30.6 PG (27.0-31.0) Mean Corpuscular Hemoglobin Concent 30.0 G/DL (32.0-36.0) L Red Cell Distribution Width 17.7 % (11.6-14.8) H Platelet Count 232 K/UL (150-450) Mean Platelet Volume 6.5 FL (6.5-10.1) Neutrophils (%) (Auto) 70.9 % (45.0-75.0) Lymphocytes (%) (Auto) 9.6 % (20.0-45.0) L Monocytes (%) (Auto) 6.4 % (1.0-10.0) Eosinophils (%) (Auto) 12.3 % (0.0-3.0) H Basophils (%) (Auto) 0.8 % (0.0-2.0) Sodium Level 141 MMOL/L (136-145) Potassium Level 3.1 MMOL/L (3.5-5.1) L Chloride Level 106 MMOL/L (98-107) Carbon Dioxide Level 27 MMOL/L (21-32) Anion Gap 8 mmol/L (5-15) Blood Urea Nitrogen 9 mg/dL (7-18) Creatinine 0.7 MG/DL (0.55-1.30) Estimat Glomerular Filtration Rate > 60 mL/min (>60) Glucose Level 74 MG/DL (74-106) Calcium Level 7.9 MG/DL (8.5-10.1) L Plan Problems: (1) Sepsis (2) Aspiration pneumonia (3) Tracheostomy complication Assessment & Plan: This 84-year-old male with bleeding from tracheostomy noted in facility. Since has had some residue within the suctioning. Trach evaluated bedside no active bleeding noted. No skin issues. Mild granulation tissue. Ab le to manipulate and function without problem. Deep suctioning performed no active bleeding identified. Potential isolated incident we will continue to monitor over the next 2 to 3 days to ensure no active bleeding or source of bleeding that requires intervention. Thank you allowing me to participate in patient's care There is infiltrate at the left lung base. There may be some pleural fluid. The heart size is normal. There is a tracheostomy. noted some blood with suction trach okay ? bronch as per pulm Impression: Left basilar infiltrate and possible pleural fluid Tracheostomy (4) Tracheostomy malfunction Assessment & Plan: DAILY ESTIMATED NEEDS: Needs based on Critical care, wound/ 76kg abw 22-28 kcals/kg 5647-6367 total kcals 1.25-2 g protein/kg 95-152 g total protein 25-30 mL/kg 7089-9030 total fluid mLs NUTRITION DIAGNOSIS: * Swallowing difficulty R/T respiratory status as evidenced by trach/vent dep, PEG dep, NPO at this time. * Increased kcal/prot/micronutrients needs R/T wound healing as evidenced by pt admitted w/ stage 3 R lateral ankle wound. CURRENT TF: Vital @30 ENTERAL NUTRITION RECOMMENDATIONS: Glucerna 1.5 @ 55ml/hr x 24 hrs to provide 1320ml, 1980kcal, 109g prot, 1002ml free water * As medically appropriate, initiate Glucerna 1.5 @ 25ml/hr x 6hrs * Advance 10ml q 4-6 hrs as tolerated to goal rate * HOB over 30 degrees/ water flush per MD ADDITIONAL RECOMMENDATIONS: * Calibrated bedscale wt * Wound healing: TF rec @ goal provides 100% RDI add Vit C 500mg QD, ZnSO4 220mg QD x 10 days Yuriy BID via PEG w/ TF order * Monitor BGs, need for NISS * K low, rec repletion Yousuf Samayoa Feb 16, 2020 17:05
--- NOTE | 2020-02-16 17:56 | NUR ---
[employer]/ H/P (02/10-02/15) FAXED TO [facility] [phone]
--- NOTE | 2020-02-16 19:19 | NUR ---
NURSE HAND-OFF REPORT: Important Events on Shift: Patient Status: Stable Diet: Vital AF 1.2 30 ml/hr Pending Orders: None Pending Results/Labs:None Pending MD notification:None Latest Vital Signs: Temperature 97.9 , Pulse 61 , B/P 157 /85 , Respiratory Rate 12 , O2 SAT 100 , Mechanical Ventilator, O2 Flow Rate 5.0 . Vital Sign Comment: Patient's heart rate noted as low as 49 bpm sinus bradycardia, Dr. Barry aware. Ordered holding parameters for Cardizem 60 mg GT Q8HR to hold for heart rate below 55 bpm. EKG Rhythm: Sinus Bradycardia Rhythm change?: N MD Notified?: Y -Dr. Jhonny RICARDO Response: Latest Wall Fall Score: 45 Fall Risk: High Risk Safety Measures: Call light Within Reach, Bed Alarm Zone 3, Side Rails Side Rails x3, Bed position Low and Locked. Fall Precautions: Yellow Socks Yellow Gown Door Sign Patient Fall Education Report given to LISSA Emanuel.
--- NOTE | 2020-02-16 19:20 | NUR ---
NURSE NOTES: Received report from LISSA Sierra. Pt awake in bed, alert x 2, responds to name and follows commands, afebrile, SOB on exertion, noticeable mouth breathing and use of accessory muscles noted. On NRB at 15lpm saturating at 100% and RR of 23. With left NGT in place intact and patent running vital af at 20cc/hr with goal of 50cc/hr. Pt tolerating well without any residual. With Right hand 22 g IV line intact, patent and asymptomatic. With Johnson catheter to urine bag draining jacque yellow urine. Call light within reach. HOB elevated. Needs were attended. Bed rails are up and padded. bed wheels are locked. Continue plan of care Addendum: 02/16/20 at 1999 by PATTIE Emanuel RN CORRECTION: Disregard above notes. wrong patient. will be corrected
--- NOTE | 2020-02-16 19:25 | NUR ---
NURSE NOTES: Received report from LISSA Ham. Patient asleep in bed, arousable to name and tactile stimulation, afebrile and no respiratory distress noted. Vent to trache Portex 7, AC 12, Tidal volume 500, FiO2 40%, PEEP 5. With GT running vital AF at 30cc/hr infusing well without any residual amounts. With left hand 22g and right 22g iv lines intact, patent and asymptomatic. With Johnson catheter to urine bag draining jacque yellow urine. Call light within reach. HOB elevated. Needs were attended. Bed rails are up and padded. bed wheels are locked. Continue plan of care
--- NOTE | 2020-02-16 20:16 | NUR ---
NURSE NOTES: patient was noted with mild bleeding while doing suctioning. MD aware already and noted that it's an isolated bleeding and not severe case. per AM nurse endorsement. holding Heparin to prevent further bleeding
--- NOTE | 2020-02-16 20:56 | General Progress Note ---
Subjective ROS Limited/Unobtainable: Yes Allergies: Coded Allergies: No Known Allergies (Unverified , 02/11/20) Objective Last 24 Hour Vital Signs Date Time Temp Pulse Resp B/P (MAP) Pulse Ox O2 Delivery O2 Flow Rate FiO2 02/16/20 20:00 45 02/16/20 20:00 Mechanical Ventilator 02/16/20 19:33 53 12 40 02/16/20 17:25 46 12 40 02/16/20 16:00 45 02/16/20 16:00 Mechanical Ventilator 02/16/20 16:00 54 02/16/20 15:56 97.9 61 17 157/85 (109) 100 02/16/20 15:10 49 12 40 02/16/20 14:00 54 154/56 02/16/20 12:49 55 14 40 02/16/20 12:29 70 23 100 Mechanical Ventilator 40 02/16/20 12:00 52 02/16/20 12:00 Mechanical Ventilator 02/16/20 12:00 45 02/16/20 11:43 98.0 56 17 154/56 (88) 100 02/16/20 11:01 70 23 40 02/16/20 09:25 56 14 40 02/16/20 08:00 Mechanical Ventilator 02/16/20 08:00 96.9 49 17 148/60 (89) 100 02/16/20 08:00 45 02/16/20 08:00 51 02/16/20 07:56 96.4 53 17 147/57 (87) 100 02/16/20 06:57 54 12 40 02/16/20 05:33 61 176/77 02/16/20 04:50 56 14 40 02/16/20 04:31 173/76 02/16/20 04:00 60 02/16/20 04:00 45 02/16/20 04:00 97.3 64 17 173/76 (108) 100 02/16/20 04:00 Mechanical Ventilator 02/16/20 03:00 60 15 40 02/16/20 00:32 54 13 40 02/16/20 00:01 62 151/65 02/16/20 00:00 Mechanical Ventilator 02/16/20 00:00 97.3 60 14 151/65 (93) 100 02/16/20 00:00 54 11/8/20 22:32 58 13 40 Intake and Output 02/15/20 02/16/20 19:00 07:00 Intake Total 935 ml 1444.43825 ml Output Total 1150 ml 850 ml Balance -215 ml 594.20011 ml Intake Free Water 220 ml IV Total 715 ml 1144.95767 ml Tube Feeding 240 ml Other 60 ml Output Urine Total 1150 ml 850 ml Laboratory Tests 02/16/20 04:06: White Blood Count 6.3, Red Blood Count 3.16L, Hemoglobin 9.7L, Hematocrit 32.2L, Mean Corpuscular Volume 102H, Mean Corpuscular Hemoglobin 30.6, Mean Corpuscular Hemoglobin Concent 30.0L, Red Cell Distribution Width 17.7H, Platelet Count 232, Mean Platelet Volume 6.5, Neutrophils (%) (Auto) 70.9, Lymphocytes (%) (Auto) 9.6L, Monocytes (%) (Auto) 6.4, Eosinophils (%) (Auto) 12.3H, Basophils (%) (Auto) 0.8, Sodium Level 141, Potassium Level 3.1L, Chloride Level 106, Carbon Dioxide Level 27, Anion Gap 8, Blood Urea Nitrogen 9, Creatinine 0.7, Estimat Glomerular Filtration Rate > 60, Glucose Level 74, Calcium Level 7.9L Height (Feet): 5 Height (Inches): 8.00 Weight (Pounds): 212 Assessment/Plan Problem List: (1) Sepsis ICD Codes: A41.9 - Sepsis, unspecified organism SNOMED: 34350463 Qualifiers: Qualified Codes: A41.9 - Sepsis, unspecified organism; R65.20 - Severe sepsis without septic shock; J96.01 - Acute respiratory failure with hypoxia (2) Aspiration pneumonia ICD Codes: J69.0 - Pneumonitis due to inhalation of food and vomit SNOMED: 230410047 Qualifiers: Qualified Codes: J69.0 - Pneumonitis due to inhalation of food and vomit (3) Tracheostomy complication ICD Codes: J95.00 - Unspecified tracheostomy complication SNOMED: 35313680 Qualifiers: Qualified Codes: J95.00 - Unspecified tracheostomy complication (4) Tracheostomy malfunction ICD Codes: J95.03 - Malfunction of tracheostomy stoma SNOMED: 056270991 Status: progressing Assessment/Plan: no bleeding no fever reviewed chart and labs check lytes bleeding trach improved cva peg sepsis asp pna resp insuff Oral Crawford MD Feb 16, 2020 20:56
[2020-02-17] VITALS: BP 145/70
[2020-02-17] MEDS: Vancomycin 1 GM in NS 275 ML IVPB SCH ×3 (00:34→23:29)
--- NOTE | 2020-02-17 02:30 | NUR ---
NURSE NOTES: Pt was given bed bath. Gown and linen changed. Pt tolerated well. No discomforts noted
[2020-02-17 04:00] VITALS: BP 157/80
[2020-02-17 05:11] LABS: BASOPHILS % (AUTO) 0.5 % (0.0-2.0); HEMATOCRIT 32.5 % (42.0-52.0); HEMOGLOBIN 9.8 G/DL (14.2-18.0); LYMPHOCYTES % (AUTO) 12.4 % (20.0-45.0); MEAN CORPUSCULAR VOLUME 103 FL (80-99); MONOCYTES % (AUTO) 7.4 % (1.0-10.0); NEUTROPHILS % (AUTO) 64.7 % (45.0-75.0); PLATELET COUNT 262 K/UL (150-450); RED BLOOD COUNT 3.17 M/UL (4.70-6.10); RED CELL DISTRIBUTION WIDTH 17.9 % (11.6-14.8); WHITE BLOOD COUNT 6.9 K/UL (4.8-10.8)
[2020-02-17] MEDS: dilTIAZem HCl 60mg tab GT SCH ×3 (05:19→21:22)
[2020-02-17 05:52] LABS: ALANINE AMINOTRANSFERASE 20 U/L (12-78); ALBUMIN 1.7 G/DL (3.4-5.0); ALBUMIN/GLOBULIN RATIO 0.4 (1.0-2.7); ALKALINE PHOSPHATASE 50 U/L (46-116); ASPARTATE AMINO TRANSFERASE 51 U/L (15-37); BILIRUBIN,TOTAL 2.7 MG/DL (0.2-1.0); BLOOD UREA NITROGEN 9 mg/dL (7-18); CARBON DIOXIDE 31 MMOL/L (21-32); CHLORIDE 105 MMOL/L (98-107); CREATININE 0.7 MG/DL (0.55-1.30); POTASSIUM 3.8 MMOL/L (3.5-5.1); SODIUM 139 MMOL/L (136-145)
[2020-02-17 06:01] LABS: BILIRUBIN,DIRECT 1.6 MG/DL (0.0-0.3)
--- NOTE | 2020-02-17 06:05 | NUR ---
NURSE NOTES: Pt asleep in bed. No discomfort noted. Continue to monitor.
--- NOTE | 2020-02-17 06:50 | Hematology/Onc Progress Note ---
Assessment/Plan Assessment/Plan IMPRESSION/RECS: 1. Leukcytosis with underlying Left lung pneumonia. --> recommend ABX vanc/zosyn --> as per id --> wbc 18-->9 --> smear has been reviewed 2. Anemia due to chronic disease v iron deficiency --> anemia panel ordered --> transfuse prn hgb goal >7 --> occult blood --> hgb 11-->7-->9.1 3. Lactic acidemia. --> likely due to infection -> ivfs started as well 4. Tracheal bleeding. --> per surgery --> vent, improved 5. Chronic tracheostomy. 6. Chronic vent dependence. 7. Chronic G-tube. 8. Previous CVA. 9. Dvt ppx heparin sq Appreciate consultation and Robyn Barrow Subjective Constitutional: Denies: no symptoms, chills, fever, malaise, weakness, other HEENT: Denies: no symptoms, eye pain, blurred vision, tearing, double vision, ear pain, ear discharge, nose pain, nose congestion, throat pain, throat swelling, mouth pain, mouth swelling, other Cardiovascular: Denies: no symptoms, chest pain, edema, irregular heart rate, lightheadedness, palpitations, syncope, other Respiratory: Denies: no symptoms, cough, shortness of breath, SOB with excertion, SOB at rest, sputum, wheezing, other Gastrointestinal/Abdominal: Denies: no symptoms, abdomen distended, abdominal pain, black stools, tarry stools, blood in stool, constipated, diarrhea, difficulty swallowing, nausea, poor appetite, poor fluid intake, rectal bleeding, vomiting, other Genitourinary: Denies: no symptoms, burning, discharge, frequency, flank pain, hematuria, incontinence, pain, urgency, other Neurologic/Psychiatric: Denies: no symptoms, anxiety, depressed, emotional problems, headache, numbness, paresthesia, pre-existing deficit, seizure, tingling, tremors, weakness, other Endocrine: Denies: no symptoms, excessive sweating, flushing, intolerance to cold, intolerance to heat, increased hunger, increased thirst, increased urine, unexplained weight gain, unexplained weight loss, other Allergies: Coded Allergies: No Known Allergies (Unverified , 02/11/20) Subjective 02/14 on vent, trach, no bleeding, labs are noted, robyn rn 02/15 nonverbal, vent and gtube, no major events noted 02/16 nv, meds ntoed, vent, no bleeding, dw r Objective Objective Current Medications Medications (Trade) Dose Ordered Sig/Natalia Route PRN Reason Start Time Stop Time Status Last Admin Dose Admin Acetaminophen (Tylenol) 650 mg Q4H PRN GT Temp >100.5 02/11/20 13:30 03/12/20 13:29 Acetaminophen (Tylenol) 650 mg Q4H PRN GT Mild Pain (Pain Scale 1-3) 02/11/20 13:45 03/12/20 13:44 Ascorbic Acid (Vitamin C) 500 mg DAILY GT 02/17/20 09:00 03/18/20 08:59 Diltiazem HCl (Cardizem Tab) 60 mg Q8HR GT 02/16/20 14:00 03/12/20 17:59 02/17/20 05:19 Heparin Sodium (Porcine) (Heparin 5000 units/ml) 5,000 units EVERY 12 HOURS SUBQ 02/12/20 21:00 03/28/20 20:59 Hydralazine HCl (Apresoline) 10 mg Q4H PRN IV BP over 160 syst 02/16/20 10:10 05/16/20 10:09 Levetiracetam (Keppra) 1,500 mg Q12HR GT 02/11/20 21:00 03/12/20 20:59 02/16/20 21:26 Levofloxacin (Levaquin) 750 mg DAILY GT 02/16/20 11:15 02/23/20 11:14 02/16/20 11:59 Pantoprazole (Protonix) 40 mg DAILY IVP 02/13/20 09:00 03/14/20 08:59 02/16/20 08:28 Vancomycin HCl ([facility] pharmacy to dose) 1 ea DAILY PRN MISC Per rx protocol 02/12/20 11:30 03/13/20 11:29 Vancomycin HCl 1 gm/Sodium Chloride 275 ml @ 183.708 mls/hr Q12H IVPB 02/13/20 00:00 02/18/20 00:00 02/17/20 00:34 Zinc Sulfate (Zinc Sulfate) 220 mg DAILY GT 02/17/20 09:00 02/27/20 08:59 Last 24 Hour Vital Signs Date Time Temp Pulse Resp B/P (MAP) Pulse Ox O2 Delivery O2 Flow Rate FiO2 02/17/20 05:25 58 15 40 02/17/20 05:19 58 153/70 02/17/20 05:08 57 02/17/20 04:00 Mechanical Ventilator 02/17/20 04:00 97.9 62 17 157/80 (105) 100 02/17/20 04:00 45 02/17/20 03:16 61 15 40 02/17/20 01:40 52 12 40 02/17/20 00:00 98.1 52 17 145/70 (95) 100 02/17/20 00:00 Mechanical Ventilator 02/16/20 23:27 51 02/16/20 23:18 51 12 40 02/16/20 21:25 70 162/90 02/16/20 21:06 59 12 40 02/16/20 20:00 45 02/16/20 20:00 Mechanical Ventilator 02/16/20 20:00 98.1 53 17 160/77 (104) 100 02/16/20 19:33 53 12 40 02/16/20 19:08 55 02/16/20 17:25 46 12 40 02/16/20 16:00 45 02/16/20 16:00 Mechanical Ventilator 02/16/20 16:00 54 02/16/20 15:56 97.9 61 17 157/85 (109) 100 02/16/20 15:10 49 12 40 02/16/20 14:00 54 154/56 02/16/20 12:49 55 14 40 02/16/20 12:29 70 23 100 Mechanical Ventilator 40 02/16/20 12:00 52 02/16/20 12:00 Mechanical Ventilator 02/16/20 12:00 45 02/16/20 11:43 98.0 56 17 154/56 (88) 100 02/16/20 11:01 70 23 40 02/16/20 09:25 56 14 40 02/16/20 08:00 Mechanical Ventilator 02/16/20 08:00 96.9 49 17 148/60 (89) 100 02/16/20 08:00 45 02/16/20 08:00 51 02/16/20 07:56 96.4 53 17 147/57 (87) 100 02/16/20 06:57 54 12 40 02/16/20 05:33 61 176/77 02/16/20 04:50 56 14 40 02/16/20 04:31 173/76 02/16/20 04:00 60 02/16/20 04:00 45 02/16/20 04:00 97.3 64 17 173/76 (108) 100 02/16/20 04:00 Mechanical Ventilator 02/16/20 03:00 60 15 40 02/16/20 00:32 54 13 40 02/16/20 00:01 62 151/65 02/16/20 00:00 Mechanical Ventilator 02/16/20 00:00 97.3 60 14 151/65 (93) 100 02/16/20 00:00 54 02/15/20 22:32 58 13 40 02/15/20 20:32 60 14 40 02/15/20 20:00 45 02/15/20 20:00 97.5 65 14 161/69 (99) 100 02/15/20 20:00 66 02/15/20 20:00 Mechanical Ventilator 02/15/20 19:00 69 14 40 02/15/20 17:48 52 166/75 02/15/20 16:39 59 12 40 02/15/20 16:00 66 02/15/20 16:00 Mechanical Ventilator 02/15/20 16:00 45 02/15/20 16:00 97.9 60 14 166/75 (105) 100 02/15/20 15:24 57 12 40 02/15/20 13:12 61 15 40 02/15/20 12:58 75 151/64 02/15/20 12:00 98.2 75 16 151/64 (93) 99 02/15/20 12:00 66 02/15/20 12:00 Mechanical Ventilator 02/15/20 12:00 45 02/15/20 11:09 64 15 40 02/15/20 09:11 52 13 40 02/15/20 08:44 58 02/15/20 08:00 45 02/15/20 08:00 98.2 58 14 153/71 (98) 98 02/15/20 08:00 Mechanical Ventilator 02/15/20 07:19 54 13 40 Intake and Output 02/16/20 02/17/20 19:00 07:00 Intake Total 965.000 ml 785.000 ml Output Total 900 ml 500 ml Balance 65.000 ml 285.000 ml Intake Free Water 250 ml 150 ml IV Total 385.000 ml 275.000 ml Tube Feeding 330 ml 360 ml Output Urine Total 900 ml 500 ml Labs Test 02/14/20 11:20 02/16/20 04:06 02/17/20 02:55 Vancomycin Level Trough 17.6 ug/mL (5.0-12.0) White Blood Count 6.3 K/UL (4.8-10.8) 6.9 K/UL (4.8-10.8) Red Blood Count 3.16 M/UL (4.70-6.10) 3.17 M/UL (4.70-6.10) Hemoglobin 9.7 G/DL (14.2-18.0) 9.8 G/DL (14.2-18.0) Hematocrit 32.2 % (42.0-52.0) 32.5 % (42.0-52.0) Mean Corpuscular Volume 102 FL (80-99) 103 FL (80-99) Mean Corpuscular Hemoglobin 30.6 PG (27.0-31.0) 30.8 PG (27.0-31.0) Mean Corpuscular Hemoglobin Concent 30.0 G/DL (32.0-36.0) 30.1 G/DL (32.0-36.0) Red Cell Distribution Width 17.7 % (11.6-14.8) 17.9 % (11.6-14.8) Platelet Count 232 K/UL (150-450) 262 K/UL (150-450) Mean Platelet Volume 6.5 FL (6.5-10.1) 7.4 FL (6.5-10.1) Neutrophils (%) (Auto) 70.9 % (45.0-75.0) 64.7 % (45.0-75.0) Lymphocytes (%) (Auto) 9.6 % (20.0-45.0) 12.4 % (20.0-45.0) Monocytes (%) (Auto) 6.4 % (1.0-10.0) 7.4 % (1.0-10.0) Eosinophils (%) (Auto) 12.3 % (0.0-3.0) 15.0 % (0.0-3.0) Basophils (%) (Auto) 0.8 % (0.0-2.0) 0.5 % (0.0-2.0) Sodium Level 141 MMOL/L (136-145) 139 MMOL/L (136-145) Potassium Level 3.1 MMOL/L (3.5-5.1) 3.8 MMOL/L (3.5-5.1) Chloride Level 106 MMOL/L (98-107) 105 MMOL/L (98-107) Carbon Dioxide Level 27 MMOL/L (21-32) 31 MMOL/L (21-32) Anion Gap 8 mmol/L (5-15) Blood Urea Nitrogen 9 mg/dL (7-18) 9 mg/dL (7-18) Creatinine 0.7 MG/DL (0.55-1.30) 0.7 MG/DL (0.55-1.30) Estimat Glomerular Filtration Rate > 60 mL/min (>60) > 60 mL/min (>60) Glucose Level 74 MG/DL (74-106) 118 MG/DL (74-106) Calcium Level 7.9 MG/DL (8.5-10.1) 8.0 MG/DL (8.5-10.1) Uric Acid 1.5 MG/DL (2.6-7.2) Phosphorus Level 2.0 MG/DL (2.5-4.9) Magnesium Level 1.6 MG/DL (1.8-2.4) Total Bilirubin 2.7 MG/DL (0.2-1.0) Direct Bilirubin 1.6 MG/DL (0.0-0.3) Gamma Glutamyl Transpeptidase 100 U/L (5-85) Aspartate Amino Transf (AST/SGOT) 51 U/L (15-37) Alanine Aminotransferase (ALT/SGPT) 20 U/L (12-78) Alkaline Phosphatase 50 U/L (46-116) C-Reactive Protein, Quantitative 7.3 mg/dL (0.00-0.90) Pro-B-Type Natriuretic Peptide 5952 pg/mL (0-125) Total Protein 6.0 G/DL (6.4-8.2) Albumin 1.7 G/DL (3.4-5.0) Globulin 4.3 g/dL Albumin/Globulin Ratio 0.4 (1.0-2.7) Folate 25.0 NG/ML (8.6-58.9) Height (Feet): 5 Height (Inches): 8.00 Weight (Pounds): 212 Objective Physical Exam General appearance: alert, no distress, appears stated age HEENT: Normocephalic, Teeth and gums normal trach + Lungs: clear to auscultation bilaterally Heart: regular rate and rhythm, S1, S2 normal, no murmur, click, rub or gallop Abdomen: soft, non-tender. Bowel sounds normal. No masses, ++ feeding tube Extremities: extremities normal, atraumatic, no cyanosis or edema Pulses: 2+ and symmetric Skin: Skin color, texture, turgor normal. No rashes or lesions Neurologic: Grossly normal Bryce Edgar MD Feb 17, 2020 06:50
--- NOTE | 2020-02-17 07:15 | NUR ---
NURSE NOTES: Received patient from LISSA BLANKENSHIP. Patient is A&O x1, non verbal, opens eyes, wakes up to name. Patient is sinus rizwana sinus rhythm on the monitor. Patient is on the ventilator AC 12, tidal volume 500, 40% FiO2, PEEP 5 sating at 100%, tolerating well. Patient has a Gtube Glucerna 1.5 at 40cc/hr. Patient has aggarwal for retention, patent and running. +4pitting edema bilateral upper extremities, +2 right lower extremity, +3 left lower extremity. Will continue plan of care.
--- NOTE | 2020-02-17 07:20 | NUR ---
NURSE HAND-OFF REPORT: Important Events on Shift: Stable Patient Status:stable Diet: glucerna at 55 cc/hr goal Pending Orders: n Pending Results/Labs:n Pending MD notification:n Latest Vital Signs: Temperature 97.9 , Pulse 58 , B/P 153 /70 , Respiratory Rate 15 , O2 SAT 100 , Mechanical Ventilator, O2 Flow Rate 5.0 . Vital Sign Comment: n EKG Rhythm: Sinus Bradycardia Rhythm change?: N MD Notified?: José Miguel Barry MD Response: Latest Wall Fall Score: 45 Fall Risk: High Risk Safety Measures: Call light Within Reach, Bed Alarm Zone 3, Side Rails Side Rails x3, Bed position Low and Locked. Fall Precautions: Yellow Socks Yellow Gown Door Sign Patient Fall Education Report given to LISSA Glynn.
[2020-02-17 08:00] VITALS: BP 149/68
[2020-02-17] MEDS: Ascorbic Acid 500mg tab GT SCH (08:39)
[2020-02-17] MEDS: levETIRAcetam 500mg/5ml Liquid GT SCH ×2 (08:41→21:21)
[2020-02-17] MEDS: Zinc Sulfate 220mg GT SCH (08:41)
[2020-02-17] MEDS: Pantoprazole Inj IVP SCH (08:41)
[2020-02-17] MEDS: Heparin 5000 units/ml inj SUBQ SCH ×2 (08:42→21:23)
[2020-02-17] MEDS: Levofloxacin 750mg tab GT SCH (08:43)
--- NOTE | 2020-02-17 09:00 | NUR ---
NURSE NOTES: dr dalal made aware of heparin SQ, platelet level, hct and hgb today and that patient is not bleeding. per dr eckert OK to give heparin.
--- NOTE | 2020-02-17 09:45 | Nephrology Progress Note ---
Assessment/Plan Problem List: (1) Electrolyte imbalance (2) HTN (hypertension) (3) Aspiration pneumonia (4) Tracheostomy complication (5) Anemia (6) Chronic respiratory failure Assessment Electrolyte imbalance, hypokalemia Normal BUN/creatinine Sepsis leukocytosis tachycardia with left-sided pneumonia Tracheostomy complication with bleeding Anemia Ventilator dependent respiratory failure Atrial fibrillation PEG Plan February 16: Potassium supplement, phosphorus, magnesium supplement as needed. Monitor electrolytes and chemistries. Discontinued IV fluid. Adjust blood pressure medication, Zestril added and 1 dose of Lasix 20 mg given Subjective ROS Limited/Unobtainable: Yes Objective Objective Last 24 Hour Vital Signs Date Time Temp Pulse Resp B/P (MAP) Pulse Ox O2 Delivery O2 Flow Rate FiO2 02/17/20 09:00 40 02/17/20 08:00 97.9 56 14 149/68 (95) 100 02/17/20 07:00 52 13 40 02/17/20 05:25 58 15 40 02/17/20 05:19 58 153/70 02/17/20 05:08 57 02/17/20 04:00 Mechanical Ventilator 02/17/20 04:00 97.9 62 17 157/80 (105) 100 02/17/20 04:00 45 02/17/20 03:16 61 15 40 02/17/20 01:40 52 12 40 02/17/20 00:00 98.1 52 17 145/70 (95) 100 02/17/20 00:00 Mechanical Ventilator 02/16/20 23:27 51 02/16/20 23:18 51 12 40 02/16/20 21:25 70 162/90 02/16/20 21:06 59 12 40 02/16/20 20:00 45 02/16/20 20:00 Mechanical Ventilator 02/16/20 20:00 98.1 53 17 160/77 (104) 100 02/16/20 19:33 53 12 40 02/16/20 19:08 55 02/16/20 17:25 46 12 40 02/16/20 16:00 45 02/16/20 16:00 Mechanical Ventilator 02/16/20 16:00 54 02/16/20 15:56 97.9 61 17 157/85 (109) 100 02/16/20 15:10 49 12 40 02/16/20 14:00 54 154/56 02/16/20 12:49 55 14 40 02/16/20 12:29 70 23 100 Mechanical Ventilator 40 02/16/20 12:00 52 02/16/20 12:00 Mechanical Ventilator 02/16/20 12:00 45 02/16/20 11:43 98.0 56 17 154/56 (88) 100 02/16/20 11:01 70 23 40 Intake and Output 02/16/20 02/17/20 19:00 07:00 Intake Total 965.000 ml 825.000 ml Output Total 900 ml 500 ml Balance 65.000 ml 325.000 ml Intake Free Water 250 ml 150 ml IV Total 385.000 ml 275.000 ml Tube Feeding 330 ml 400 ml Output Urine Total 900 ml 500 ml Current Medications Medications (Trade) Dose Ordered Sig/Natalia Route PRN Reason Start Time Stop Time Status Last Admin Dose Admin Acetaminophen (Tylenol) 650 mg Q4H PRN GT Temp >100.5 02/11/20 13:30 03/12/20 13:29 Acetaminophen (Tylenol) 650 mg Q4H PRN GT Mild Pain (Pain Scale 1-3) 02/11/20 13:45 03/12/20 13:44 Ascorbic Acid (Vitamin C) 500 mg DAILY GT 02/17/20 09:00 03/18/20 08:59 02/17/20 08:39 Diltiazem HCl (Cardizem Tab) 60 mg Q8HR GT 02/16/20 14:00 03/12/20 17:59 02/17/20 05:19 Furosemide (Lasix) 20 mg ONCE ONCE IV 02/17/20 09:45 02/17/20 09:46 UNV Heparin Sodium (Porcine) (Heparin 5000 units/ml) 5,000 units EVERY 12 HOURS SUBQ 02/12/20 21:00 03/28/20 20:59 02/17/20 08:42 Hydralazine HCl (Apresoline) 10 mg Q4H PRN IV BP over 160 syst 02/16/20 10:10 05/16/20 10:09 Levetiracetam (Keppra) 1,500 mg Q12HR GT 02/11/20 21:00 03/12/20 20:59 02/17/20 08:41 Levofloxacin (Levaquin) 750 mg DAILY GT 02/16/20 11:15 02/23/20 11:14 02/17/20 08:43 Magnesium Sulfate 100 ml @ 100 mls/hr Q1H IVPB 02/17/20 08:00 02/17/20 09:59 02/17/20 08:39 Pantoprazole (Protonix) 40 mg DAILY IVP 02/13/20 09:00 03/14/20 08:59 02/17/20 08:41 Potassium Phosphate 250 ml @ 62.5 mls/hr Q4H IVPB 02/17/20 10:00 02/17/20 17:59 Vancomycin HCl ([facility] pharmacy to dose) 1 ea DAILY PRN MISC Per rx protocol 02/12/20 11:30 03/13/20 11:29 Vancomycin HCl 1 gm/Sodium Chloride 275 ml @ 183.708 mls/hr Q12H IVPB 02/13/20 00:00 02/18/20 00:00 02/17/20 00:34 Zinc Sulfate (Zinc Sulfate) 220 mg DAILY GT 02/17/20 09:00 02/27/20 08:59 02/17/20 08:41 Laboratory Tests 02/17/20 02:55: White Blood Count 6.9, Red Blood Count 3.17L, Hemoglobin 9.8L, Hematocrit 32.5L, Mean Corpuscular Volume 103H, Mean Corpuscular Hemoglobin 30.8, Mean Corpuscular Hemoglobin Concent 30.1L, Red Cell Distribution Width 17.9H, Platelet Count 262, Mean Platelet Volume 7.4, Neutrophils (%) (Auto) 64.7, Lymphocytes (%) (Auto) 12.4L, Monocytes (%) (Auto) 7.4, Eosinophils (%) (Auto) 15.0H, Basophils (%) (Auto) 0.5, Sodium Level 139, Potassium Level 3.8, Chloride Level 105, Carbon Dioxide Level 31, Blood Urea Nitrogen 9, Creatinine 0.7, Estimat Glomerular Filtration Rate > 60, Glucose Level 118H, Uric Acid 1.5L, Calcium Level 8.0L, Phosphorus Level 2.0L, Magnesium Level 1.6L, Total Bilirubin 2.7H, Direct Bilirubin 1.6H, Gamma Glutamyl Transpeptidase 100H, Aspartate Amino Transf (AST/SGOT) 51H, Alanine Aminotransferase (ALT/SGPT) 20, Alkaline Phosphatase 50, C-Reactive Protein, Quantitative 7.3H, Pro-B-Type Natriuretic Peptide 5952H, Total Protein 6.0L, Albumin 1.7L, Globulin 4.3, Albumin/Globulin Ratio 0.4L, Folate 25.0 Height (Feet): 5 Height (Inches): 8.00 Weight (Pounds): 212 General Appearance: no apparent distress EENT: other - Trach to vent Cardiovascular: bradycardia - Rate 50s Respiratory/Chest: decreased breath sounds Abdomen: distended Tano Longoria MD Feb 17, 2020 09:45
--- NOTE | 2020-02-17 09:59 | Pulmonology Progress Note ---
Subjective ROS Limited/Unobtainable: Yes Interval Events: No peter-tracheal bleeding; still has red tinged endo-tracheal aspirate Constitutional: Denies: fever HEENT: Repors: no symptoms Respiratory: Reports: no symptoms Cardiovascular: Reports: no symptoms Gastrointestinal/Abdominal: Reports: other - NPO Allergies: Coded Allergies: No Known Allergies (Unverified , 02/11/20) Objective Last 24 Hour Vital Signs Date Time Temp Pulse Resp B/P (MAP) Pulse Ox O2 Delivery O2 Flow Rate FiO2 02/17/20 09:08 53 14 40 02/17/20 09:00 40 02/17/20 08:00 97.9 56 14 149/68 (95) 100 02/17/20 07:00 52 13 40 02/17/20 05:25 58 15 40 02/17/20 05:19 58 153/70 02/17/20 05:08 57 02/17/20 04:00 Mechanical Ventilator 02/17/20 04:00 97.9 62 17 157/80 (105) 100 02/17/20 04:00 45 02/17/20 03:16 61 15 40 02/17/20 01:40 52 12 40 02/17/20 00:00 98.1 52 17 145/70 (95) 100 02/17/20 00:00 Mechanical Ventilator 02/16/20 23:27 51 02/16/20 23:18 51 12 40 02/16/20 21:25 70 162/90 02/16/20 21:06 59 12 40 02/16/20 20:00 45 02/16/20 20:00 Mechanical Ventilator 02/16/20 20:00 98.1 53 17 160/77 (104) 100 02/16/20 19:33 53 12 40 02/16/20 19:08 55 02/16/20 17:25 46 12 40 02/16/20 16:00 45 02/16/20 16:00 Mechanical Ventilator 02/16/20 16:00 54 02/16/20 15:56 97.9 61 17 157/85 (109) 100 02/16/20 15:10 49 12 40 02/16/20 14:00 54 154/56 02/16/20 12:49 55 14 40 02/16/20 12:29 70 23 100 Mechanical Ventilator 40 02/16/20 12:00 52 02/16/20 12:00 Mechanical Ventilator 02/16/20 12:00 45 02/16/20 11:43 98.0 56 17 154/56 (88) 100 02/16/20 11:01 70 23 40 Intake and Output 02/16/20 02/17/20 19:00 07:00 Intake Total 965.000 ml 825.000 ml Output Total 900 ml 500 ml Balance 65.000 ml 325.000 ml Intake Free Water 250 ml 150 ml IV Total 385.000 ml 275.000 ml Tube Feeding 330 ml 400 ml Output Urine Total 900 ml 500 ml General Appearance: no acute distress HEENT: normocephalic Respiratory: chest wall non-tender, lungs clear Cardiovascular: normal peripheral pulses Abdomen: normal bowel sounds Laboratory Tests 02/17/20 02:55: White Blood Count 6.9, Red Blood Count 3.17L, Hemoglobin 9.8L, Hematocrit 32.5L, Mean Corpuscular Volume 103H, Mean Corpuscular Hemoglobin 30.8, Mean Corpuscular Hemoglobin Concent 30.1L, Red Cell Distribution Width 17.9H, Platelet Count 262, Mean Platelet Volume 7.4, Neutrophils (%) (Auto) 64.7, Lymphocytes (%) (Auto) 12.4L, Monocytes (%) (Auto) 7.4, Eosinophils (%) (Auto) 15.0H, Basophils (%) (Auto) 0.5, Sodium Level 139, Potassium Level 3.8, Chloride Level 105, Carbon Dioxide Level 31, Blood Urea Nitrogen 9, Creatinine 0.7, Estimat Glomerular Filtration Rate > 60, Glucose Level 118H, Uric Acid 1.5L, Calcium Level 8.0L, Phosphorus Level 2.0L, Magnesium Level 1.6L, Total Bilirubin 2.7H, Direct Bilirubin 1.6H, Gamma Glutamyl Transpeptidase 100H, Aspartate Amino Transf (AST/SGOT) 51H, Alanine Aminotransferase (ALT/SGPT) 20, Alkaline Phosphatase 50, C-Reactive Protein, Quantitative 7.3H, Pro-B-Type Natriuretic Peptide 5952H, Total Protein 6.0L, Albumin 1.7L, Globulin 4.3, Albumin/Globulin Ratio 0.4L, Folate 25.0 Current Medications Medications (Trade) Dose Ordered Sig/Natalia Route PRN Reason Start Time Stop Time Status Last Admin Dose Admin Acetaminophen (Tylenol) 650 mg Q4H PRN GT Temp >100.5 02/11/20 13:30 03/12/20 13:29 Acetaminophen (Tylenol) 650 mg Q4H PRN GT Mild Pain (Pain Scale 1-3) 02/11/20 13:45 03/12/20 13:44 Albumin Human 100 ml @ 100 mls/hr ONCE IV 02/17/20 09:45 02/17/20 11:00 Ascorbic Acid (Vitamin C) 500 mg DAILY GT 02/17/20 09:00 03/18/20 08:59 02/17/20 08:39 Diltiazem HCl (Cardizem Tab) 60 mg Q8HR GT 02/16/20 14:00 03/12/20 17:59 02/17/20 05:19 Furosemide (Lasix) 20 mg ONCE IV 02/17/20 09:45 02/17/20 11:00 Heparin Sodium (Porcine) (Heparin 5000 units/ml) 5,000 units EVERY 12 HOURS SUBQ 02/12/20 21:00 03/28/20 20:59 02/17/20 08:42 Hydralazine HCl (Apresoline) 10 mg Q4H PRN IV BP over 160 syst 02/16/20 10:10 05/16/20 10:09 Levetiracetam (Keppra) 1,500 mg Q12HR GT 02/11/20 21:00 03/12/20 20:59 02/17/20 08:41 Levofloxacin (Levaquin) 750 mg DAILY GT 02/16/20 11:15 02/23/20 11:14 02/17/20 08:43 Lisinopril (ZestriL) 2.5 mg BID GT 02/17/20 09:45 03/18/20 09:44 Magnesium Sulfate 100 ml @ 100 mls/hr Q1H IVPB 02/17/20 08:00 02/17/20 09:59 02/17/20 08:39 Pantoprazole (Protonix) 40 mg DAILY IVP 02/13/20 09:00 03/14/20 08:59 02/17/20 08:41 Potassium Phosphate 250 ml @ 62.5 mls/hr Q4H IVPB 02/17/20 10:00 02/17/20 17:59 Vancomycin HCl ([facility] pharmacy to dose) 1 ea DAILY PRN MISC Per rx protocol 02/12/20 11:30 03/13/20 11:29 Vancomycin HCl 1 gm/Sodium Chloride 275 ml @ 183.708 mls/hr Q12H IVPB 02/13/20 00:00 02/18/20 00:00 02/17/20 00:34 Zinc Sulfate (Zinc Sulfate) 220 mg DAILY GT 02/17/20 09:00 02/27/20 08:59 02/17/20 08:41 Assessment/Plan Assessment/Plan IMPRESSION: 1. Bilateral lung pneumonia (HCAP) with pseudomonas/stenotrophomonas 2. Leukocytosis. Resolved 3. Lactic acidemia. 4. Endo-tracheal bleeding/hemoptysis... Hgb stable post-transfusion 5. Chronic tracheostomy. 6. Chronic vent dependence. 7. Chronic G-tube. 8. Previous CVA. DISCUSSION: Continue broad-spectrum antibiotics. Oxygen and pulmonary hygiene. Tracheostomy site is clean CT chest confirms dense bilateral pneumonia Micro - stentotrophomonas/pseudomonas I will follow carefully. DVT and GI prophylaxes. OK to dc back to SNF Will need IV abx (Meropenem) Kandy Golden Omar Syed MD Feb 17, 2020 09:59
[2020-02-17] MEDS: Lisinopril 2.5mg tab GT SCH ×2 (10:09→17:36)
[2020-02-17] MEDS: Potassium Phosphate 15mm/250ml 250 ML IVPB SCH ×2 (10:14→15:07)
--- NOTE | 2020-02-17 10:30 | NUR ---
NURSE NOTES: dr alicia made aware of patients bleeding and if its ok to administer heparin subq. per dr alicia, Ok to administer. will carry out.
--- NOTE | 2020-02-17 11:01 | Infectious Diseases Prog Note ---
Assessment/Plan Assessment/Plan IMPRESSION: Sepsis with Staph aureus (MRSA) Pseudomonas, E coli & Steotrophomonas pneumonia, Tracheostomy complication with bleeding. 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 Subjective ROS Limited/Unobtainable: Yes Constitutional: Denies: fever Allergies: Coded Allergies: No Known Allergies (Unverified , 02/11/20) Objective Last 24 Hour Vital Signs Date Time Temp Pulse Resp B/P (MAP) Pulse Ox O2 Delivery O2 Flow Rate FiO2 02/17/20 10:09 149/68 02/17/20 09:08 53 14 40 02/17/20 09:00 40 02/17/20 08:00 97.9 56 14 149/68 (95) 100 02/17/20 07:48 55 02/17/20 07:00 52 13 40 02/17/20 05:25 58 15 40 02/17/20 05:19 58 153/70 02/17/20 05:08 57 02/17/20 04:00 Mechanical Ventilator 02/17/20 04:00 97.9 62 17 157/80 (105) 100 02/17/20 04:00 45 02/17/20 03:16 61 15 40 02/17/20 01:40 52 12 40 02/17/20 00:00 98.1 52 17 145/70 (95) 100 02/17/20 00:00 Mechanical Ventilator 02/16/20 23:27 51 02/16/20 23:18 51 12 40 02/16/20 21:25 70 162/90 02/16/20 21:06 59 12 40 02/16/20 20:00 45 02/16/20 20:00 Mechanical Ventilator 02/16/20 20:00 98.1 53 17 160/77 (104) 100 02/16/20 19:33 53 12 40 02/16/20 19:08 55 02/16/20 17:25 46 12 40 02/16/20 16:00 45 02/16/20 16:00 Mechanical Ventilator 02/16/20 16:00 54 02/16/20 15:56 97.9 61 17 157/85 (109) 100 02/16/20 15:10 49 12 40 02/16/20 14:00 54 154/56 02/16/20 12:49 55 14 40 02/16/20 12:29 70 23 100 Mechanical Ventilator 40 02/16/20 12:00 52 02/16/20 12:00 Mechanical Ventilator 02/16/20 12:00 45 02/16/20 11:43 98.0 56 17 154/56 (88) 100 02/16/20 11:01 70 23 40 Height (Feet): 5 Height (Inches): 8.00 Weight (Pounds): 212 HEENT: status post trach Respiratory/Chest: rhonchi - bilaterally, other - on ventilator Cardiovascular: bradycardia Abdomen: soft, non tender, other - GT feeding Extremities: other - edema Neurologic/Psychiatric: aphasia, other - opens eyes Laboratory Tests Test 02/17/20 02:55 White Blood Count 6.9 K/UL (4.8-10.8) Red Blood Count 3.17 M/UL (4.70-6.10) L Hemoglobin 9.8 G/DL (14.2-18.0) L Hematocrit 32.5 % (42.0-52.0) L Mean Corpuscular Volume 103 FL (80-99) H Mean Corpuscular Hemoglobin 30.8 PG (27.0-31.0) Mean Corpuscular Hemoglobin Concent 30.1 G/DL (32.0-36.0) L Red Cell Distribution Width 17.9 % (11.6-14.8) H Platelet Count 262 K/UL (150-450) Mean Platelet Volume 7.4 FL (6.5-10.1) Neutrophils (%) (Auto) 64.7 % (45.0-75.0) Lymphocytes (%) (Auto) 12.4 % (20.0-45.0) L Monocytes (%) (Auto) 7.4 % (1.0-10.0) Eosinophils (%) (Auto) 15.0 % (0.0-3.0) H Basophils (%) (Auto) 0.5 % (0.0-2.0) Sodium Level 139 MMOL/L (136-145) Potassium Level 3.8 MMOL/L (3.5-5.1) Chloride Level 105 MMOL/L (98-107) Carbon Dioxide Level 31 MMOL/L (21-32) Blood Urea Nitrogen 9 mg/dL (7-18) Creatinine 0.7 MG/DL (0.55-1.30) Estimat Glomerular Filtration Rate > 60 mL/min (>60) Glucose Level 118 MG/DL (74-106) H Uric Acid 1.5 MG/DL (2.6-7.2) L Calcium Level 8.0 MG/DL (8.5-10.1) L Phosphorus Level 2.0 MG/DL (2.5-4.9) L Magnesium Level 1.6 MG/DL (1.8-2.4) L Total Bilirubin 2.7 MG/DL (0.2-1.0) H Direct Bilirubin 1.6 MG/DL (0.0-0.3) H Gamma Glutamyl Transpeptidase 100 U/L (5-85) H Aspartate Amino Transf (AST/SGOT) 51 U/L (15-37) H Alanine Aminotransferase (ALT/SGPT) 20 U/L (12-78) Alkaline Phosphatase 50 U/L (46-116) C-Reactive Protein, Quantitative 7.3 mg/dL (0.00-0.90) H Pro-B-Type Natriuretic Peptide 5952 pg/mL (0-125) H Total Protein 6.0 G/DL (6.4-8.2) L Albumin 1.7 G/DL (3.4-5.0) L Globulin 4.3 g/dL Albumin/Globulin Ratio 0.4 (1.0-2.7) L Folate 25.0 NG/ML (8.6-58.9) Current Medications Medications (Trade) Dose Ordered Sig/Natalia Route PRN Reason Start Time Stop Time Status Last Admin Dose Admin Acetaminophen (Tylenol) 650 mg Q4H PRN GT Temp >100.5 02/11/20 13:30 03/12/20 13:29 Acetaminophen (Tylenol) 650 mg Q4H PRN GT Mild Pain (Pain Scale 1-3) 02/11/20 13:45 03/12/20 13:44 Albumin Human 100 ml @ 100 mls/hr ONCE IV 02/17/20 09:45 02/17/20 11:00 02/17/20 10:10 Ascorbic Acid (Vitamin C) 500 mg DAILY GT 02/17/20 09:00 03/18/20 08:59 02/17/20 08:39 Diltiazem HCl (Cardizem Tab) 60 mg Q8HR GT 02/16/20 14:00 03/12/20 17:59 02/17/20 05:19 Furosemide (Lasix) 20 mg ONCE IV 02/17/20 09:45 02/17/20 11:00 02/17/20 10:10 Heparin Sodium (Porcine) (Heparin 5000 units/ml) 5,000 units EVERY 12 HOURS SUBQ 02/12/20 21:00 03/28/20 20:59 02/17/20 08:42 Hydralazine HCl (Apresoline) 10 mg Q4H PRN IV BP over 160 syst 02/16/20 10:10 05/16/20 10:09 Levetiracetam (Keppra) 1,500 mg Q12HR GT 02/11/20 21:00 03/12/20 20:59 02/17/20 08:41 Levofloxacin (Levaquin) 750 mg DAILY GT 02/16/20 11:15 02/23/20 11:14 02/17/20 08:43 Lisinopril (ZestriL) 2.5 mg BID GT 02/17/20 09:45 03/18/20 09:44 02/17/20 10:09 Pantoprazole (Protonix) 40 mg DAILY IVP 02/13/20 09:00 03/14/20 08:59 02/17/20 08:41 Potassium Phosphate 250 ml @ 62.5 mls/hr Q4H IVPB 02/17/20 10:00 02/17/20 17:59 02/17/20 10:14 Vancomycin HCl (Vanco pharmacy to dose) 1 ea DAILY PRN MISC Per rx protocol 02/12/20 11:30 03/13/20 11:29 Vancomycin HCl 1 gm/Sodium Chloride 275 ml @ 183.708 mls/hr Q12H IVPB 02/13/20 00:00 02/18/20 00:00 02/17/20 00:34 Zinc Sulfate (Zinc Sulfate) 220 mg DAILY GT 02/17/20 09:00 02/27/20 08:59 02/17/20 08:41 Ulises Vasquez MD Feb 17, 2020 11:01
--- NOTE | 2020-02-17 11:51 | Cardiac Electrophysiology PN ---
Assessment/Plan Assessment/Plan 1. Atrial fibrillation with rapid ventricular response. Decreased Cardizem to 60 mg tid v Off anticoagulation for tracheal bleed. In SR with first degree AVB 2. Accelerated hypertension. Off losartan 50 mg daily and Cardizem 3. Bleeding from the trach site. Further evaluation by Surgery. S/P PRBC 4. Ventilator-respiratory failure. Further evaluation by Dr. Otero. 5. Dysphagia, status post PEG placement. 6. Elevated white count and sepsis, on IV antibiotic. DW RN Subjective Subjective BP better. Trach has minimal bleeding. Fio2 45% and PEEP 5. Getting rizwana in 50s and Cardizem was decreased. Objective Last 24 Hour Vital Signs Date Time Temp Pulse Resp B/P (MAP) Pulse Ox O2 Delivery O2 Flow Rate FiO2 02/17/20 11:02 67 13 40 02/17/20 10:09 149/68 02/17/20 09:08 53 14 40 02/17/20 09:00 40 02/17/20 08:00 97.9 56 14 149/68 (95) 100 02/17/20 08:00 Mechanical Ventilator 02/17/20 07:48 55 02/17/20 07:00 52 13 40 02/17/20 05:25 58 15 40 02/17/20 05:19 58 153/70 02/17/20 05:08 57 02/17/20 04:00 Mechanical Ventilator 02/17/20 04:00 97.9 62 17 157/80 (105) 100 02/17/20 04:00 45 02/17/20 03:16 61 15 40 02/17/20 01:40 52 12 40 02/17/20 00:00 98.1 52 17 145/70 (95) 100 02/17/20 00:00 Mechanical Ventilator 02/16/20 23:27 51 02/16/20 23:18 51 12 40 02/16/20 21:25 70 162/90 02/16/20 21:06 59 12 40 02/16/20 20:00 45 02/16/20 20:00 Mechanical Ventilator 02/16/20 20:00 98.1 53 17 160/77 (104) 100 02/16/20 19:33 53 12 40 02/16/20 19:08 55 02/16/20 17:25 46 12 40 02/16/20 16:00 45 02/16/20 16:00 Mechanical Ventilator 02/16/20 16:00 54 02/16/20 15:56 97.9 61 17 157/85 (109) 100 02/16/20 15:10 49 12 40 02/16/20 14:00 54 154/56 02/16/20 12:49 55 14 40 02/16/20 12:29 70 23 100 Mechanical Ventilator 40 02/16/20 12:00 52 02/16/20 12:00 Mechanical Ventilator 02/16/20 12:00 45 Intake and Output 02/16/20 02/17/20 19:00 07:00 Intake Total 965.000 ml 825.000 ml Output Total 900 ml 500 ml Balance 65.000 ml 325.000 ml Intake Free Water 250 ml 150 ml IV Total 385.000 ml 275.000 ml Tube Feeding 330 ml 400 ml Output Urine Total 900 ml 500 ml Laboratory Tests Test 02/17/20 02:55 02/17/20 11:00 White Blood Count 6.9 K/UL (4.8-10.8) Red Blood Count 3.17 M/UL (4.70-6.10) L Hemoglobin 9.8 G/DL (14.2-18.0) L Hematocrit 32.5 % (42.0-52.0) L Mean Corpuscular Volume 103 FL (80-99) H Mean Corpuscular Hemoglobin 30.8 PG (27.0-31.0) Mean Corpuscular Hemoglobin Concent 30.1 G/DL (32.0-36.0) L Red Cell Distribution Width 17.9 % (11.6-14.8) H Platelet Count 262 K/UL (150-450) Mean Platelet Volume 7.4 FL (6.5-10.1) Neutrophils (%) (Auto) 64.7 % (45.0-75.0) Lymphocytes (%) (Auto) 12.4 % (20.0-45.0) L Monocytes (%) (Auto) 7.4 % (1.0-10.0) Eosinophils (%) (Auto) 15.0 % (0.0-3.0) H Basophils (%) (Auto) 0.5 % (0.0-2.0) Sodium Level 139 MMOL/L (136-145) Potassium Level 3.8 MMOL/L (3.5-5.1) Chloride Level 105 MMOL/L (98-107) Carbon Dioxide Level 31 MMOL/L (21-32) Blood Urea Nitrogen 9 mg/dL (7-18) Creatinine 0.7 MG/DL (0.55-1.30) Estimat Glomerular Filtration Rate > 60 mL/min (>60) Glucose Level 118 MG/DL (74-106) H Uric Acid 1.5 MG/DL (2.6-7.2) L Calcium Level 8.0 MG/DL (8.5-10.1) L Phosphorus Level 2.0 MG/DL (2.5-4.9) L Magnesium Level 1.6 MG/DL (1.8-2.4) L Total Bilirubin 2.7 MG/DL (0.2-1.0) H Direct Bilirubin 1.6 MG/DL (0.0-0.3) H Gamma Glutamyl Transpeptidase 100 U/L (5-85) H Aspartate Amino Transf (AST/SGOT) 51 U/L (15-37) H Alanine Aminotransferase (ALT/SGPT) 20 U/L (12-78) Alkaline Phosphatase 50 U/L (46-116) C-Reactive Protein, Quantitative 7.3 mg/dL (0.00-0.90) H Pro-B-Type Natriuretic Peptide 5952 pg/mL (0-125) H Total Protein 6.0 G/DL (6.4-8.2) L Albumin 1.7 G/DL (3.4-5.0) L Globulin 4.3 g/dL Albumin/Globulin Ratio 0.4 (1.0-2.7) L Folate 25.0 NG/ML (8.6-58.9) Vancomycin Level Trough 19.9 ug/mL (5.0-12.0) H Objective HEAD AND NECK: No JVD. Status post tracheostomy LUNGS: Coarse rhonchi. CARDIOVASCULAR: Shows irregular S1 and S2 with no gallop. ABDOMEN: Soft. Status post G-tube. EXTREMITIES: No pitting edema. Liang Barry MD Feb 17, 2020 11:51
[2020-02-17 12:00] VITALS: BP 146/66
--- NOTE | 2020-02-17 12:13 | Surgery Progress Note ---
Surgery Progress Note Subjective Additional Comments H&H has been stable since transfusion. Still with bloody aspirate with deep suctioning. No bleeding around tracheostomy site. LFTs remain elevated T bili direct bili ultrasound ordered Objective Last 24 Hour Vital Signs Date Time Temp Pulse Resp B/P (MAP) Pulse Ox O2 Delivery O2 Flow Rate FiO2 02/17/20 11:02 67 13 40 02/17/20 10:09 149/68 02/17/20 09:08 53 14 40 02/17/20 09:00 40 02/17/20 08:00 97.9 56 14 149/68 (95) 100 02/17/20 08:00 Mechanical Ventilator 02/17/20 07:48 55 02/17/20 07:00 52 13 40 02/17/20 05:25 58 15 40 02/17/20 05:19 58 153/70 02/17/20 05:08 57 02/17/20 04:00 Mechanical Ventilator 02/17/20 04:00 97.9 62 17 157/80 (105) 100 02/17/20 04:00 45 02/17/20 03:16 61 15 40 02/17/20 01:40 52 12 40 02/17/20 00:00 98.1 52 17 145/70 (95) 100 02/17/20 00:00 Mechanical Ventilator 02/16/20 23:27 51 02/16/20 23:18 51 12 40 02/16/20 21:25 70 162/90 02/16/20 21:06 59 12 40 02/16/20 20:00 45 02/16/20 20:00 Mechanical Ventilator 02/16/20 20:00 98.1 53 17 160/77 (104) 100 02/16/20 19:33 53 12 40 02/16/20 19:08 55 02/16/20 17:25 46 12 40 02/16/20 16:00 45 02/16/20 16:00 Mechanical Ventilator 02/16/20 16:00 54 02/16/20 15:56 97.9 61 17 157/85 (109) 100 02/16/20 15:10 49 12 40 02/16/20 14:00 54 154/56 02/16/20 12:49 55 14 40 02/16/20 12:29 70 23 100 Mechanical Ventilator 40 I&O Intake and Output 02/16/20 02/17/20 19:00 07:00 Intake Total 965.000 ml 825.000 ml Output Total 900 ml 500 ml Balance 65.000 ml 325.000 ml Intake Free Water 250 ml 150 ml IV Total 385.000 ml 275.000 ml Tube Feeding 330 ml 400 ml Output Urine Total 900 ml 500 ml Dressing: dry Cardiovascular: RSR Respiratory: decreased breath sounds Abdomen: non-tender, present bowel sounds Extremities: no edema, no tenderness, no cyanosis Laboratory Tests Test 02/17/20 02:55 02/17/20 11:00 White Blood Count 6.9 K/UL (4.8-10.8) Red Blood Count 3.17 M/UL (4.70-6.10) L Hemoglobin 9.8 G/DL (14.2-18.0) L Hematocrit 32.5 % (42.0-52.0) L Mean Corpuscular Volume 103 FL (80-99) H Mean Corpuscular Hemoglobin 30.8 PG (27.0-31.0) Mean Corpuscular Hemoglobin Concent 30.1 G/DL (32.0-36.0) L Red Cell Distribution Width 17.9 % (11.6-14.8) H Platelet Count 262 K/UL (150-450) Mean Platelet Volume 7.4 FL (6.5-10.1) Neutrophils (%) (Auto) 64.7 % (45.0-75.0) Lymphocytes (%) (Auto) 12.4 % (20.0-45.0) L Monocytes (%) (Auto) 7.4 % (1.0-10.0) Eosinophils (%) (Auto) 15.0 % (0.0-3.0) H Basophils (%) (Auto) 0.5 % (0.0-2.0) Sodium Level 139 MMOL/L (136-145) Potassium Level 3.8 MMOL/L (3.5-5.1) Chloride Level 105 MMOL/L (98-107) Carbon Dioxide Level 31 MMOL/L (21-32) Blood Urea Nitrogen 9 mg/dL (7-18) Creatinine 0.7 MG/DL (0.55-1.30) Estimat Glomerular Filtration Rate > 60 mL/min (>60) Glucose Level 118 MG/DL (74-106) H Uric Acid 1.5 MG/DL (2.6-7.2) L Calcium Level 8.0 MG/DL (8.5-10.1) L Phosphorus Level 2.0 MG/DL (2.5-4.9) L Magnesium Level 1.6 MG/DL (1.8-2.4) L Total Bilirubin 2.7 MG/DL (0.2-1.0) H Direct Bilirubin 1.6 MG/DL (0.0-0.3) H Gamma Glutamyl Transpeptidase 100 U/L (5-85) H Aspartate Amino Transf (AST/SGOT) 51 U/L (15-37) H Alanine Aminotransferase (ALT/SGPT) 20 U/L (12-78) Alkaline Phosphatase 50 U/L (46-116) C-Reactive Protein, Quantitative 7.3 mg/dL (0.00-0.90) H Pro-B-Type Natriuretic Peptide 5952 pg/mL (0-125) H Total Protein 6.0 G/DL (6.4-8.2) L Albumin 1.7 G/DL (3.4-5.0) L Globulin 4.3 g/dL Albumin/Globulin Ratio 0.4 (1.0-2.7) L Folate 25.0 NG/ML (8.6-58.9) Vancomycin Level Trough 19.9 ug/mL (5.0-12.0) H Plan Problems: (1) Sepsis Assessment & Plan: H&H has been stable since transfusion. Still with bloody aspirate with deep suctioning. No bleeding around tracheostomy site. LFTs remain elevated T bili direct bili ultrasound ordered (2) Aspiration pneumonia (3) Tracheostomy complication Assessment & Plan: This 84-year-old male with bleeding from tracheostomy noted in facility. Since has had some residue within the suctioning. Trach evaluated bedside no active bleeding noted. No skin issues. Mild granulation tissue. Able to manipulate and function without problem. Deep suctioning performed no active bleeding identified. Potential isolated incident we will continue to monitor over the next 2 to 3 days to ensure no active bleeding or source of bleeding that requires intervention. Thank you allowing me to participate in patient's care There is infiltrate at the left lung base. There may be some pleural fluid. The heart size is normal. There is a tracheostomy. noted some blood with suction trach okay ? bronch as per pulm Impression: Left basilar infiltrate and possible pleural fluid Tracheostomy (4) Tracheostomy malfunction Assessment & Plan: DAILY ESTIMATED NEEDS: Needs based on Critical care, wound/ 76kg abw 22-28 kcals/kg 5966-5017 total kcals 1.25-2 g protein/kg 95-152 g total protein 25-30 mL/kg 3231-8320 total fluid mLs NUTRITION DIAGNOSIS: * Swallowing difficulty R/T respiratory status as evidenced by trach/vent dep, PEG dep, NPO at this time. * Increased kcal/prot/micronutrients needs R/T wound healing as evidenced by pt admitted w/ stage 3 R lateral ankle wound. CURRENT TF: Vital @30 ENTERAL NUTRITION RECOMMENDATIONS: Glucerna 1.5 @ 55ml/hr x 24 hrs to provide 1320ml, 1980kcal, 109g prot, 1002ml free water * As medically appropriate, initiate Glucerna 1.5 @ 25ml/hr x 6hrs * Advance 10ml q 4-6 hrs as tolerated to goal rate * HOB over 30 degrees/ water flush per MD ADDITIONAL RECOMMENDATIONS: * Calibrated bedscale wt * Wound healing: TF rec @ goal provides 100% RDI add Vit C 500mg QD, ZnSO4 220mg QD x 10 days Yuriy BID via PEG w/ TF order * Monitor BGs, need for NISS * Rekha rodriguez, rec repletion Yousuf Samayoa Feb 17, 2020 12:13
--- NOTE | 2020-02-17 14:28 | NUR ---
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 98.1 HR 58 RR 17 B/P 146/66 AC 12 TV 500 FIO2 405 PEEP 5 GGT 100 BNP 5952 IS: VANCO IV MEROPENEM IV PHOS IV STEP DOWN STATUS
--- NOTE | 2020-02-17 14:39 | Diagnostic Imaging Report ---
Indication: Abnormal liver function tests, anemia Technique: Granados-scale and duplex images of the upper abdomen were obtained Comparison: none Findings: Gallbladder demonstrates sludge but no stones. The gallbladder wall is mildly thickened, up to 5 mm. The patient was unable to report sonographic Hull's sign. Common bile duct measures 3 mm in diameter. No intrahepatic biliary ductal dilatation. Liver demonstrates normal echogenicity, no focal abnormality. It demonstrates surface nodularity. Portal vein and hepatic veins are patent. Pancreas is unremarkable. Spleen is unremarkable. Left kidney measures 10 cm in length. Right kidney measures 9.6 cm length. Both kidneys demonstrate normal echogenicity. There is no hydronephrosis. There is questionably a mass in the interpolar region of the left kidney which, if real, measures up to 2.8 cm in diameter. Abdominal aorta is partially obscured by bowel gas, visualized portions are non-aneurysmal . Impression: Left renal interpolar region possible mass. Consider contrast CT for better characterization. Hepatic surface nodularity, likely indicating cirrhotic changes Negative for gallstones. The gallbladder wall is thickened. This could indicate acalculous acute cholecystitis, but could also be related to to hepatocellular disease an associated hemodynamic derangements. Consider hepatobiliary nuclear scan if there is high clinical suspicion Note inability to visualize portions of the abdominal aorta
[2020-02-17] MEDS: Meropenem 1 GM in NS 55 ML IVPB SCH ×2 (15:05→21:21)
[2020-02-17 16:00] VITALS: BP_SYST 157; BP_SYST 164; BP_DIAS 75; BP_DIAS 88
--- NOTE | 2020-02-17 17:00 | General Progress Note ---
Subjective ROS Limited/Unobtainable: Yes Allergies: Coded Allergies: No Known Allergies (Unverified , 02/11/20) Objective Last 24 Hour Vital Signs Date Time Temp Pulse Resp B/P (MAP) Pulse Ox O2 Delivery O2 Flow Rate FiO2 02/17/20 16:00 Mechanical Ventilator 02/17/20 16:00 40 02/17/20 16:00 98.1 66 18 164/88 (113) 100 02/17/20 15:48 60 02/17/20 15:12 52 14 40 02/17/20 15:05 66 159/88 02/17/20 13:20 56 13 40 02/17/20 12:00 Mechanical Ventilator 02/17/20 12:00 40 02/17/20 12:00 98.1 58 17 146/66 (92) 100 02/17/20 11:50 83 02/17/20 11:02 67 13 40 02/17/20 10:09 149/68 02/17/20 09:08 53 14 40 02/17/20 09:00 40 02/17/20 08:00 97.9 56 14 149/68 (95) 100 02/17/20 08:00 Mechanical Ventilator 02/17/20 07:48 55 02/17/20 07:00 52 13 40 02/17/20 05:25 58 15 40 02/17/20 05:19 58 153/70 02/17/20 05:08 57 02/17/20 04:00 Mechanical Ventilator 02/17/20 04:00 97.9 62 17 157/80 (105) 100 02/17/20 04:00 45 02/17/20 03:16 61 15 40 02/17/20 01:40 52 12 40 02/17/20 00:00 98.1 52 17 145/70 (95) 100 02/17/20 00:00 Mechanical Ventilator 02/16/20 23:27 51 02/16/20 23:18 51 12 40 02/16/20 21:25 70 162/90 02/16/20 21:06 59 12 40 02/16/20 20:00 45 02/16/20 20:00 Mechanical Ventilator 02/16/20 20:00 98.1 53 17 160/77 (104) 100 02/16/20 19:33 53 12 40 02/16/20 19:08 55 02/16/20 17:25 46 12 40 Intake and Output 02/16/20 02/17/20 19:00 07:00 Intake Total 965.000 ml 825.000 ml Output Total 900 ml 500 ml Balance 65.000 ml 325.000 ml Intake Free Water 250 ml 150 ml IV Total 385.000 ml 275.000 ml Tube Feeding 330 ml 400 ml Output Urine Total 900 ml 500 ml Laboratory Tests 02/17/20 02:55: White Blood Count 6.9, Red Blood Count 3.17L, Hemoglobin 9.8L, Hematocrit 32.5L, Mean Corpuscular Volume 103H, Mean Corpuscular Hemoglobin 30.8, Mean Corpuscular Hemoglobin Concent 30.1L, Red Cell Distribution Width 17.9H, Platelet Count 262, Mean Platelet Volume 7.4, Neutrophils (%) (Auto) 64.7, Lymphocytes (%) (Auto) 12.4L, Monocytes (%) (Auto) 7.4, Eosinophils (%) (Auto) 15.0H, Basophils (%) (Auto) 0.5, Sodium Level 139, Potassium Level 3.8, Chloride Level 105, Carbon Dioxide Level 31, Blood Urea Nitrogen 9, Creatinine 0.7, Estimat Glomerular Filtration Rate > 60, Glucose Level 118H, Uric Acid 1.5L, Calcium Level 8.0L, Phosphorus Level 2.0L, Magnesium Level 1.6L, Total Bilirubin 2.7H, Direct Bi lirubin 1.6H, Gamma Glutamyl Transpeptidase 100H, Aspartate Amino Transf (AST/SGOT) 51H, Alanine Aminotransferase (ALT/SGPT) 20, Alkaline Phosphatase 50, C-Reactive Protein, Quantitative 7.3H, Pro-B-Type Natriuretic Peptide 5952H, Total Protein 6.0L, Albumin 1.7L, Globulin 4.3, Albumin/Globulin Ratio 0.4L, Folate 25.0 02/17/20 11:00: Vancomycin Level Trough 19.9H Height (Feet): 5 Height (Inches): 8.00 Weight (Pounds): 212 Assessment/Plan Problem List: (1) Sepsis ICD Codes: A41.9 - Sepsis, unspecified organism SNOMED: 38470769 Qualifiers: Qualified Codes: A41.9 - Sepsis, unspecified organism; R65.20 - Severe sepsis without septic shock; J96.01 - Acute respiratory failure with hypoxia (2) Aspiration pneumonia ICD Codes: J69.0 - Pneumonitis due to inhalation of food and vomit SNOMED: 055556262 Qualifiers: Qualified Codes: J69.0 - Pneumonitis due to inhalation of food and vomit (3) Tracheostomy complication ICD Codes: J95.00 - Unspecified tracheostomy complication SNOMED: 73722345 Qualifiers: Qualified Codes: J95.00 - Unspecified tracheostomy complication (4) Tracheostomy malfunction ICD Codes: J95.03 - Malfunction of tracheostomy stoma SNOMED: 347945582 Status: progressing Assessment/Plan: afebrile check h/h no bleeding malnutrtion bleeding trach improved cva peg sepsis asp pna resp insuff Oral Crawford MD Feb 17, 2020 17:00
--- NOTE | 2020-02-17 18:17 | NUR ---
INSURANCE CLINICALS/REVIEW FAXED TO [phone]
--- NOTE | 2020-02-17 18:30 | NUR ---
NURSE NOTES: left a message to dr esqueda regarding patients last BM on 02/10, that patient has no bm since admission. awaitng callback and new order.
--- NOTE | 2020-02-17 19:00 | NUR ---
NURSE HAND-OFF REPORT: Important Events on Shift:stable Patient Status: FULL Diet: tube feeding Pending Orders: OBS Pending Results/Labs:[] Pending MD notification:[] Latest Vital Signs: Temperature 98.1 , Pulse 58 , B/P 157 /75 , Respiratory Rate 13 , O2 SAT 100 , Mechanical Ventilator, O2 Flow Rate 5.0 . Vital Sign Comment: stable EKG Rhythm: Sinus Rhythm Rhythm change?: N MD Notified?: José Miguel Barry MD Response: Latest Wall Fall Score: 70 Fall Risk: High Risk Safety Measures: Call light Within Reach, Bed Alarm Zone 3, Side Rails Side Rails x3, Bed position Low and Locked. Fall Precautions: Yellow Socks Yellow Gown Door Sign Patient Fall Education Report given to LISSA BLANKENSHIP.
--- NOTE | 2020-02-17 19:25 | NUR ---
NURSE NOTES: Received report from Gretta ALCARAZ. Patient asleep in bed, arousable to name and tactile stimulation, afebrile and no respiratory distress noted. Vent to trache Portex 7, AC 12, Tidal volume 500, FiO2 40%, PEEP 5. With GT running Glucerna 1.5 at 55cc/hr infusing well without any residual amounts. With left hand 22g and right 22g iv lines intact, patent and asymptomatic. With Johnson catheter to urine bag draining jacque yellow urine. Call light within reach. HOB elevated. Needs were attended. Bed rails are up and padded. bed wheels are locked. Continue plan of care
[2020-02-17 20:00] VITALS: BP 160/80
[2020-02-17] MEDS ORDERED: Sorbitol Solution UD 30ml ORAL SCH (20:00)
--- NOTE | 2020-02-17 21:55 | General Progress Note ---
Subjective Allergies: Coded Allergies: No Known Allergies (Unverified , 02/11/20) Subjective Above note tolerating feeds d/w RN No BM noted laxative orders given US noted- nodular liver Objective Last 24 Hour Vital Signs Date Time Temp Pulse Resp B/P (MAP) Pulse Ox O2 Delivery O2 Flow Rate FiO2 02/17/20 21:22 63 151/78 02/17/20 20:46 59 13 40 02/17/20 20:00 40 02/17/20 20:00 97.8 61 18 160/80 (106) 100 02/17/20 20:00 Mechanical Ventilator 02/17/20 19:21 58 02/17/20 18:58 58 13 40 02/17/20 17:36 157/75 02/17/20 16:55 57 13 40 02/17/20 16:00 Mechanical Ventilator 02/17/20 16:00 40 02/17/20 16:00 98.1 66 18 157/75 (102) 100 02/17/20 15:48 60 02/17/20 15:12 52 14 40 02/17/20 15:05 66 159/88 02/17/20 13:20 56 13 40 02/17/20 12:00 Mechanical Ventilator 02/17/20 12:00 40 02/17/20 12:00 98.1 58 17 146/66 (92) 100 02/17/20 11:50 83 02/17/20 11:02 67 13 40 02/17/20 10:09 149/68 02/17/20 09:08 53 14 40 02/17/20 09:00 40 02/17/20 08:00 97.9 56 14 149/68 (95) 100 02/17/20 08:00 Mechanical Ventilator 02/17/20 07:48 55 02/17/20 07:00 52 13 40 02/17/20 05:25 58 15 40 02/17/20 05:19 58 153/70 02/17/20 05:08 57 02/17/20 04:00 Mechanical Ventilator 02/17/20 04:00 97.9 62 17 157/80 (105) 100 02/17/20 04:00 45 02/17/20 03:16 61 15 40 02/17/20 01:40 52 12 40 02/17/20 00:00 98.1 52 17 145/70 (95) 100 02/17/20 00:00 Mechanical Ventilator 02/16/20 23:27 51 02/16/20 23:18 51 12 40 Intake and Output 02/16/20 02/17/20 19:00 07:00 Intake Total 965.000 ml 825.000 ml Output Total 900 ml 500 ml Balance 65.000 ml 325.000 ml Intake Free Water 250 ml 150 ml IV Total 385.000 ml 275.000 ml Tube Feeding 330 ml 400 ml Output Urine Total 900 ml 500 ml Laboratory Tests 02/17/20 02:55: White Blood Count 6.9, Red Blood Count 3.17L, Hemoglobin 9.8L, Hematocrit 32.5L, Mean Corpuscular Volume 103H, Mean Corpuscular Hemoglobin 30.8, Mean Corpuscular Hemoglobin Concent 30.1L, Red Cell Distribution Width 17.9H, Platelet Count 262, Mean Platelet Volume 7.4, Neutrophils (%) (Auto) 64.7, Lymphocytes (%) (Auto) 12.4L, Monocytes (%) (Auto) 7.4, Eosinophils (%) (Auto) 15.0H, Basophils (%) (Auto) 0.5, Sodium Level 139, Potassium Level 3.8, Chloride Level 105, Carbon Dioxide Level 31, Blood Urea Nitrogen 9, Creatinine 0.7, Estimat Glomerular Filtration Rate > 60, Glucose Level 118H, Uric Acid 1.5L, Calcium Level 8.0L, Phosphorus Level 2.0L, Magnesium Level 1.6L, Total Bilirubin 2.7H, Direct Bilirubin 1.6H, Gamma Glutamyl Transpeptidase 100H, Aspartate Amino Transf (AST/SGOT) 51H, Alanine Aminotransferase (ALT/SGPT) 20, Alkaline Phosphatase 50, C-Reactive Protein, Quantitative 7.3H, Pro-B-Type Natriuretic Peptide 5952H, Total Protein 6.0L, Albumin 1.7L, Globulin 4.3, Albumin/Globulin Ratio 0.4L, Folate 25.0 02/17/20 11:00: Vancomycin Level Trough 19.9H Height (Feet): 5 Height (Inches): 8.00 Weight (Pounds): 212 Objective Debilitated man NCAT supple Coarse BS RR abd soft, (+) GT OBS Assessment/Plan Status: progressing Assessment/Plan: Assessment - Resp failure - s/p Trach and PEG - nodular liver - possible cirrhosis - elevated bili Recommendation - follow labs - elevated HOB - TF - check hepatitis serologies Ajit Chappell MD Feb 17, 2020 21:55
[2020-02-18] VITALS: BP 158/80
--- NOTE | 2020-02-18 00:30 | NUR ---
NURSE NOTES: Pt was given partial bed bath. Gown and linen were changed. Pt tolerated well. Continue plan of care
[2020-02-18 04:00] VITALS: BP 152/87
[2020-02-18 05:03] LABS: BASOPHILS % (AUTO) 0.8 % (0.0-2.0); EOSINOPHILS % (AUTO) 19.4 % (0.0-3.0); HEMATOCRIT 31.4 % (42.0-52.0); HEMOGLOBIN 9.7 G/DL (14.2-18.0); MEAN CORPUSCULAR VOLUME 103 FL (80-99); MONOCYTES % (AUTO) 6.3 % (1.0-10.0); NEUTROPHILS % (AUTO) 65.6 % (45.0-75.0); PLATELET COUNT 159 K/UL (150-450); RED BLOOD COUNT 3.06 M/UL (4.70-6.10); RED CELL DISTRIBUTION WIDTH 17.3 % (11.6-14.8)
[2020-02-18] MEDS: Meropenem 1 GM in NS 55 ML IVPB SCH ×3 (05:25→21:16)
[2020-02-18] MEDS: dilTIAZem HCl 60mg tab GT SCH ×3 (05:26→21:16)
--- NOTE | 2020-02-18 06:46 | Hematology/Onc Progress Note ---
Assessment/Plan Assessment/Plan IMPRESSION/RECS: 1. Leukcytosis with underlying Left lung pneumonia. --> recommend ABX vanc/zosyn-->yvette/vanc --> as per id --> wbc 18-->9 --> smear has been reviewed 2. Anemia due to chronic disease v iron deficiency --> anemia panel ordered --> transfuse prn hgb goal >7 --> occult blood --> hgb 11-->7-->9.1 3. Lactic acidemia. --> likely due to infection -> ivfs started as well 4. Tracheal bleeding. --> per surgery --> vent, improved 5. Chronic tracheostomy. 6. Chronic vent dependence. 7. Chronic G-tube. 8. Previous CVA. 9. Dvt ppx heparin sq Appreciate consultation and Jacinto Barrow Subjective Constitutional: Denies: no symptoms, chills, fever, malaise, weakness, other HEENT: Denies: no symptoms, eye pain, blurred vision, tearing, double vision, ear pain, ear discharge, nose pain, nose congestion, throat pain, throat swelling, mouth pain, mouth swelling, other Cardiovascular: Denies: no symptoms, chest pain, edema, irregular heart rate, lightheadedness, palpitations, syncope, other Gastrointestinal/Abdominal: Denies: no symptoms, abdomen distended, abdominal pain, black stools, tarry stools, blood in stool, constipated, diarrhea, difficulty swallowing, nausea, poor appetite, poor fluid intake, rectal bleeding, vomiting, other Genitourinary: Denies: no symptoms, burning, discharge, frequency, flank pain, hematuria, incontinence, pain, urgency, other Neurologic/Psychiatric: Denies: no symptoms, anxiety, depressed, emotional problems, headache, numbness, paresthesia, pre-existing deficit, seizure, tingling, tremors, weakness, other Endocrine: Denies: no symptoms, excessive sweating, flushing, intolerance to cold, intolerance to heat, increased hunger, increased thirst, increased urine, unexplained weight gain, unexplained weight loss, other Hematologic/Lymphatic: Denies: no symptoms, anemia, easy bleeding, easy bruising, adenopathy, other Allergies: Coded Allergies: No Known Allergies (Unverified , 02/11/20) Subjective 02/14 on vent, trach, no bleeding, labs are noted, jacinto barrow 02/15 nonverbal, vent and gtube, no major events noted 02/16 nv, meds ntoed, vent, no bleeding, jacinto r 02/17 asleep, on vent, and gtube, labs noted, hgb 9.7 Objective Objective Current Medications Medications (Trade) Dose Ordered Sig/Natalia Route PRN Reason Start Time Stop Time Status Last Admin Dose Admin Acetaminophen (Tylenol) 650 mg Q4H PRN GT Temp >100.5 02/11/20 13:30 03/12/20 13:29 Acetaminophen (Tylenol) 650 mg Q4H PRN GT Mild Pain (Pain Scale 1-3) 02/11/20 13:45 03/12/20 13:44 Ascorbic Acid (Vitamin C) 500 mg DAILY GT 02/17/20 09:00 03/18/20 08:59 02/17/20 08:39 Diltiazem HCl (Cardizem Tab) 60 mg Q8HR GT 02/16/20 14:00 03/12/20 17:59 02/18/20 05:26 Heparin Sodium (Porcine) (Heparin 5000 units/ml) 5,000 units EVERY 12 HOURS SUBQ 02/12/20 21:00 03/28/20 20:59 02/17/20 21:23 Hydralazine HCl (Apresoline) 10 mg Q4H PRN IV BP over 160 syst 02/16/20 10:10 05/16/20 10:09 Levetiracetam (Keppra) 1,500 mg Q12HR GT 02/11/20 21:00 03/12/20 20:59 02/17/20 21:21 Levofloxacin (Levaquin) 750 mg DAILY GT 02/16/20 11:15 02/23/20 11:14 02/17/20 08:43 Lisinopril (ZestriL) 2.5 mg BID GT 02/17/20 09:45 03/18/20 09:44 02/17/20 17:36 Meropenem 1 gm/ Sodium Chloride 55 ml @ 110 mls/hr Q8HR IVPB 02/17/20 14:00 02/22/20 13:59 02/18/20 05:25 Pantoprazole (Protonix) 40 mg DAILY IVP 02/13/20 09:00 03/14/20 08:59 02/17/20 08:41 Vancomycin HCl (Vanco pharmacy to dose) 1 ea DAILY PRN MISC Per rx protocol 02/12/20 11:30 03/13/20 11:29 Vancomycin HCl 1 gm/Sodium Chloride 275 ml @ 183.708 mls/hr Q12H IVPB 02/13/20 00:00 02/22/20 23:59 02/17/20 23:29 Zinc Sulfate (Zinc Sulfate) 220 mg DAILY GT 02/17/20 09:00 02/27/20 08:59 02/17/20 08:41 Last 24 Hour Vital Signs Date Time Temp Pulse Resp B/P (MAP) Pulse Ox O2 Delivery O2 Flow Rate FiO2 02/18/20 05:26 62 133/57 02/18/20 04:34 78 20 40 02/18/20 04:00 97.7 84 18 152/87 (108) 100 02/18/20 04:00 Mechanical Ventilator 02/18/20 04:00 40 02/18/20 03:27 64 02/18/20 02:32 58 13 40 02/18/20 00:45 61 15 40 02/18/20 00:00 97.6 92 18 158/80 (106) 100 02/18/20 00:00 Mechanical Ventilator 02/17/20 23:30 61 02/17/20 22:39 64 12 40 02/17/20 21:22 63 151/78 02/17/20 20:46 59 13 40 02/17/20 20:00 40 02/17/20 20:00 97.8 61 18 160/80 (106) 100 02/17/20 20:00 Mechanical Ventilator 02/17/20 19:21 58 02/17/20 18:58 58 13 40 02/17/20 17:36 157/75 02/17/20 16:55 57 13 40 02/17/20 16:00 Mechanical Ventilator 02/17/20 16:00 40 02/17/20 16:00 98.1 66 18 157/75 (102) 100 02/17/20 15:48 60 02/17/20 15:12 52 14 40 02/17/20 15:05 66 159/88 02/17/20 13:20 56 13 40 02/17/20 12:00 Mechanical Ventilator 02/17/20 12:00 40 02/17/20 12:00 98.1 58 17 146/66 (92) 100 02/17/20 11:50 83 02/17/20 11:02 67 13 40 02/17/20 10:09 149/68 02/17/20 09:08 53 14 40 02/17/20 09:00 40 02/17/20 08:00 97.9 56 14 149/68 (95) 100 02/17/20 08:00 Mechanical Ventilator 02/17/20 07:48 55 02/17/20 07:00 52 13 40 02/17/20 05:25 58 15 40 02/17/20 05:19 58 153/70 02/17/20 05:08 57 02/17/20 04:00 Mechanical Ventilator 02/17/20 04:00 97.9 62 17 157/80 (105) 100 02/17/20 04:00 45 02/17/20 03:16 61 15 40 02/17/20 01:40 52 12 40 02/17/20 00:00 98.1 52 17 145/70 (95) 100 02/17/20 00:00 Mechanical Ventilator 02/16/20 23:27 51 02/16/20 23:18 51 12 40 02/16/20 21:25 70 162/90 02/16/20 21:06 59 12 40 02/16/20 20:00 45 02/16/20 20:00 Mechanical Ventilator 02/16/20 20:00 98.1 53 17 160/77 (104) 100 02/16/20 19:33 53 12 40 02/16/20 19:08 55 02/16/20 17:25 46 12 40 02/16/20 16:00 45 02/16/20 16:00 Mechanical Ventilator 02/16/20 16:00 54 02/16/20 15:56 97.9 61 17 157/85 (109) 100 02/16/20 15:10 49 12 40 02/16/20 14:00 54 154/56 02/16/20 12:49 55 14 40 02/16/20 12:29 70 23 100 Mechanical Ventilator 40 02/16/20 12:00 52 02/16/20 12:00 Mechanical Ventilator 02/16/20 12:00 45 02/16/20 11:43 98.0 56 17 154/56 (88) 100 02/16/20 11:01 70 23 40 02/16/20 09:25 56 14 40 02/16/20 08:00 Mechanical Ventilator 02/16/20 08:00 96.9 49 17 148/60 (89) 100 02/16/20 08:00 45 02/16/20 08:00 51 02/16/20 07:56 96.4 53 17 147/57 (87) 100 02/16/20 06:57 54 12 40 Intake and Output 02/17/20 02/18/20 19:00 07:00 Intake Total 1749.916 ml 1120.000 ml Output Total 2450 ml Balance -700.084 ml 1120.000 ml Intake Free Water 150 ml 150 ml IV Total 1159.916 ml 385.000 ml Tube Feeding 440 ml 585 ml Output Urine Total 2450 ml Labs Test 02/16/20 04:06 02/17/20 02:55 02/17/20 11:00 02/18/20 03:25 White Blood Count 6.3 K/UL (4.8-10.8) 6.9 K/UL (4.8-10.8) 7.0 K/UL (4.8-10.8) Red Blood Count 3.16 M/UL (4.70-6.10) 3.17 M/UL (4.70-6.10) 3.06 M/UL (4.70-6.10) Hemoglobin 9.7 G/DL (14.2-18.0) 9.8 G/DL (14.2-18.0) 9.7 G/DL (14.2-18.0) Hematocrit 32.2 % (42.0-52.0) 32.5 % (42.0-52.0) 31.4 % (42.0-52.0) Mean Corpuscular Volume 102 FL (80-99) 103 FL (80-99) 103 FL (80-99) Mean Corpuscular Hemoglobin 30.6 PG (27.0-31.0) 30.8 PG (27.0-31.0) 31.5 PG (27.0-31.0) Mean Corpuscular Hemoglobin Concent 30.0 G/DL (32.0-36.0) 30.1 G/DL (32.0-36.0) 30.7 G/DL (32.0-36.0) Red Cell Distribution Width 17.7 % (11.6-14.8) 17.9 % (11.6-14.8) 17.3 % (11.6-14.8) Platelet Count 232 K/UL (150-450) 262 K/UL (150-450) 159 K/UL (150-450) Mean Platelet Volume 6.5 FL (6.5-10.1) 7.4 FL (6.5-10.1) 6.2 FL (6.5-10.1) Neutrophils (%) (Auto) 70.9 % (45.0-75.0) 64.7 % (45.0-75.0) 65.6 % (45.0-75.0) Lymphocytes (%) (Auto) 9.6 % (20.0-45.0) 12.4 % (20.0-45.0) 8.0 % (20.0-45.0) Monocytes (%) (Auto) 6.4 % (1.0-10.0) 7.4 % (1.0-10.0) 6.3 % (1.0-10.0) Eosinophils (%) (Auto) 12.3 % (0.0-3.0) 15.0 % (0.0-3.0) 19.4 % (0.0-3.0) Basophils (%) (Auto) 0.8 % (0.0-2.0) 0.5 % (0.0-2.0) 0.8 % (0.0-2.0) Sodium Level 141 MMOL/L (136-145) 139 MMOL/L (136-145) Potassium Level 3.1 MMOL/L (3.5-5.1) 3.8 MMOL/L (3.5-5.1) Chloride Level 106 MMOL/L (98-107) 105 MMOL/L (98-107) Carbon Dioxide Level 27 MMOL/L (21-32) 31 MMOL/L (21-32) Anion Gap 8 mmol/L (5-15) Blood Urea Nitrogen 9 mg/dL (7-18) 9 mg/dL (7-18) Creatinine 0.7 MG/DL (0.55-1.30) 0.7 MG/DL (0.55-1.30) Estimat Glomerular Filtration Rate > 60 mL/min (>60) > 60 mL/min (>60) Glucose Level 74 MG/DL (74-106) 118 MG/DL (74-106) Calcium Level 7.9 MG/DL (8.5-10.1) 8.0 MG/DL (8.5-10.1) Uric Acid 1.5 MG/DL (2.6-7.2) Phosphorus Level 2.0 MG/DL (2.5-4.9) Magnesium Level 1.6 MG/DL (1.8-2.4) Total Bilirubin 2.7 MG/DL (0.2-1.0) Direct Bilirubin 1.6 MG/DL (0.0-0.3) Gamma Glutamyl Transpeptidase 100 U/L (5-85) Aspartate Amino Transf (AST/SGOT) 51 U/L (15-37) Alanine Aminotransferase (ALT/SGPT) 20 U/L (12-78) Alkaline Phosphatase 50 U/L (46-116) C-Reactive Protein, Quantitative 7.3 mg/dL (0.00-0.90) Pro-B-Type Natriuretic Peptide 5952 pg/mL (0-125) Total Protein 6.0 G/DL (6.4-8.2) Albumin 1.7 G/DL (3.4-5.0) Globulin 4.3 g/dL Albumin/Globulin Ratio 0.4 (1.0-2.7) Folate 25.0 NG/ML (8.6-58.9) Vancomycin Level Trough 19.9 ug/mL (5.0-12.0) Height (Feet): 5 Height (Inches): 8.00 Weight (Pounds): 212 Objective Physical Exam General appearance: alert, no distress, appears stated age HEENT: Normocephalic, Teeth and gums normal trach + Lungs: clear to auscultation bilaterally Heart: regular rate and rhythm, S1, S2 normal, no murmur, click, rub or gallop Abdomen: soft, non-tender. Bowel sounds normal. No masses, ++ feeding tube Extremities: extremities normal, atraumatic, no cyanosis or edema Pulses: 2+ and symmetric Skin: Skin color, texture, turgor normal. No rashes or lesions Neurologic: Grossly normal Bryce Edgar MD Feb 18, 2020 06:46
[2020-02-18 06:54] LABS: ALANINE AMINOTRANSFERASE 28 U/L (12-78); ALBUMIN 2.1 G/DL (3.4-5.0); ALBUMIN/GLOBULIN RATIO 0.5 (1.0-2.7); ALKALINE PHOSPHATASE 48 U/L (46-116); ANION GAP 4 mmol/L (5-15); ASPARTATE AMINO TRANSFERASE 41 U/L (15-37); BILIRUBIN,DIRECT 1.6 MG/DL (0.0-0.3); BILIRUBIN,TOTAL 2.2 MG/DL (0.2-1.0); BLOOD UREA NITROGEN 10 mg/dL (7-18); CALCIUM 7.9 MG/DL (8.5-10.1); CARBON DIOXIDE 30 MMOL/L (21-32); CHLORIDE 108 MMOL/L (98-107); CREATININE 0.7 MG/DL (0.55-1.30); POTASSIUM 3.9 MMOL/L (3.5-5.1); SODIUM 142 MMOL/L (136-145)
--- NOTE | 2020-02-18 07:10 | NUR ---
NURSE NOTES: received report from LISSA BLANKENSHIP. received patient. head of bed elevated 45 degrees. patient is obtunded. trach to vent tolerating well to vent settings. O2 saturation 100%. given oral and trach care. no evidence of active bleeding on trach at this time. patient is receiving glucerna 1.5 at 50cc/hr. tolerating well. aggarwal catheter draining well, jacque colored urine. Patient reposition every two hours to provide comfort and prevent further skin breakdown. left AC 20G saline lock, intact. Patient is on a schedule for PICC line placement this morning. Full body assessment down. No acute distress noted at this time. Will continue to monitor.
--- NOTE | 2020-02-18 07:25 | NUR ---
NURSE HAND-OFF REPORT: Important Events on Shift: stable Patient Status: stable Diet: glucerna 1.5 @ 55cc/hr Pending Orders: n Pending Results/Labs:n Pending notification:n Latest Vital Signs: Temperature 97.7 , Pulse 62 , B/P 133 /57 , Respiratory Rate 20 , O2 SAT 100 , Mechanical Ventilator, O2 Flow Rate 5.0 . Vital Sign Comment: n EKG Rhythm: Sinus Rhythm Rhythm change?: N MD Notified?: José Miguel Barry MD Response: Latest Wall Fall Score: 70 Fall Risk: High Risk Safety Measures: Call light Within Reach, Bed Alarm Zone 3, Side Rails Side Rails x3, Bed position Low and Locked. Fall Precautions: Yellow Socks Yellow Gown Door Sign Patient Fall Education Report given to LISSA Gutierres. Addendum: 02/18/20 at 0742 by PATTIE Emanuel RN CORRECTION: endorsed to LISSA harris
[2020-02-18 07:59] VITALS: BP 151/67
[2020-02-18 08:14] LABS: PHOSPHORUS 2.5 MG/DL (2.5-4.9)
[2020-02-18] MEDS: levETIRAcetam 500mg/5ml Liquid GT SCH ×2 (09:16→21:15)
[2020-02-18] MEDS: Lisinopril 2.5mg tab GT SCH ×2 (09:17→18:39)
[2020-02-18] MEDS: Zinc Sulfate 220mg GT SCH (09:17)
[2020-02-18] MEDS: Pantoprazole Inj IVP SCH (09:17)
[2020-02-18] MEDS: Heparin 5000 units/ml inj SUBQ SCH ×2 (09:19→21:18)
[2020-02-18] MEDS: Ascorbic Acid 500mg tab GT SCH (09:19)
[2020-02-18] MEDS: Levofloxacin 750mg tab GT SCH (09:42)
[2020-02-18] MEDS ORDERED: NS 275ml ONE ×3 (09:54→14:29)
--- NOTE | 2020-02-18 09:55 | Pulmonology Progress Note ---
Subjective ROS Limited/Unobtainable: Yes Interval Events: No peter-tracheal bleeding; still has red tinged endo-tracheal aspirate Constitutional: Denies: fever HEENT: Repors: no symptoms Respiratory: Reports: no symptoms Cardiovascular: Reports: no symptoms Gastrointestinal/Abdominal: Reports: other - NPO Allergies: Coded Allergies: No Known Allergies (Unverified , 02/11/20) Objective Last 24 Hour Vital Signs Date Time Temp Pulse Resp B/P (MAP) Pulse Ox O2 Delivery O2 Flow Rate FiO2 02/18/20 09:17 151/67 02/18/20 08:00 60 02/18/20 08:00 Mechanical Ventilator 02/18/20 07:59 40 02/18/20 07:59 98.1 66 20 151/67 (95) 100 02/18/20 05:26 62 133/57 02/18/20 04:34 78 20 40 02/18/20 04:00 97.7 84 18 152/87 (108) 100 02/18/20 04:00 Mechanical Ventilator 02/18/20 04:00 40 02/18/20 03:27 64 02/18/20 02:32 58 13 40 02/18/20 00:45 61 15 40 02/18/20 00:00 97.6 92 18 158/80 (106) 100 02/18/20 00:00 Mechanical Ventilator 02/17/20 23:30 61 02/17/20 22:39 64 12 40 02/17/20 21:22 63 151/78 02/17/20 20:46 59 13 40 02/17/20 20:00 40 02/17/20 20:00 97.8 61 18 160/80 (106) 100 02/17/20 20:00 Mechanical Ventilator 02/17/20 19:21 58 02/17/20 18:58 58 13 40 02/17/20 17:36 157/75 02/17/20 16:55 57 13 40 02/17/20 16:00 Mechanical Ventilator 02/17/20 16:00 40 02/17/20 16:00 98.1 66 18 157/75 (102) 100 02/17/20 15:48 60 02/17/20 15:12 52 14 40 02/17/20 15:05 66 159/88 02/17/20 13:20 56 13 40 02/17/20 12:00 Mechanical Ventilator 02/17/20 12:00 40 02/17/20 12:00 98.1 58 17 146/66 (92) 100 02/17/20 11:50 83 02/17/20 11:02 67 13 40 02/17/20 10:09 149/68 Intake and Output 02/17/20 02/18/20 19:00 07:00 Intake Total 1749.916 ml 1120.000 ml Output Total 2450 ml Balance -700.084 ml 1120.000 ml Intake Free Water 150 ml 150 ml IV Total 1159.916 ml 385.000 ml Tube Feeding 440 ml 585 ml Output Urine Total 2450 ml General Appearance: no acute distress HEENT: normocephalic Respiratory: chest wall non-tender, lungs clear Cardiovascular: normal peripheral pulses Abdomen: normal bowel sounds Laboratory Tests 02/17/20 11:00: Vancomycin Level Trough 19.9H 02/18/20 03:25: White Blood Count 7.0, Red Blood Count 3.06L, Hemoglobin 9.7L, Hematocrit 31.4L, Mean Corpuscular Volume 103H, Mean Corpuscular Hemoglobin 31.5H, Mean Corpuscular Hemoglobin Concent 30.7L, Red Cell Distribution Width 17.3H, Platelet Count 159, Mean Platelet Volume 6.2L, Neutrophils (%) (Auto) 65.6, Lymphocytes (%) (Auto) 8.0L, Monocytes (%) (Auto) 6.3, Eosinophils (%) (Auto) 19.4H, Basophils (%) (Auto) 0.8, Sodium Level 142, Potassium Level 3.9, Chloride Level 108H, Carbon Dioxide Level 30, Anion Gap 4L, Blood Urea Nitrogen 10, Creatinine 0.7, Estimat Glomerular Filtration Rate > 60, Glucose Level 115H, Calcium Level 7.9L, Phosphorus Level 2.5, Magnesium Level 2.0, Total Bilirubin 2.2H, Direct Bilirubin 1.6H, Aspartate Amino Transf (AST/SGOT) 41H, Alanine Aminotransferase (ALT/SGPT) 28, Alkaline Phosphatase 48, Total Protein 6.1L, Albumin 2.1L, Globulin 4.0, Albumin/Globulin Ratio 0.5L, Hepatitis A IgM Antibody [Pending], Hepatitis B Surface Antigen [Pending], Hepatitis B Core IgM Antibody [Pending], Hepatitis C Antibody [Pending] Current Medications Medications (Trade) Dose Ordered Sig/Natalia Route PRN Reason Start Time Stop Time Status Last Admin Dose Admin Acetaminophen (Tylenol) 650 mg Q4H PRN GT Temp >100.5 02/11/20 13:30 03/12/20 13:29 Acetaminophen (Tylenol) 650 mg Q4H PRN GT Mild Pain (Pain Scale 1-3) 02/11/20 13:45 03/12/20 13:44 Ascorbic Acid (Vitamin C) 500 mg DAILY GT 02/17/20 09:00 03/18/20 08:59 02/18/20 09:19 Diltiazem HCl (Cardizem Tab) 60 mg Q8HR GT 02/16/20 14:00 03/12/20 17:59 02/18/20 05:26 Heparin Sodium (Porcine) (Heparin 5000 units/ml) 5,000 units EVERY 12 HOURS SUBQ 02/12/20 21:00 03/28/20 20:59 02/18/20 09:19 Hydralazine HCl (Apresoline) 10 mg Q4H PRN IV BP over 160 syst 02/16/20 10:10 05/16/20 10:09 Levetiracetam (Keppra) 1,500 mg Q12HR GT 02/11/20 21:00 03/12/20 20:59 02/18/20 09:16 Levofloxacin (Levaquin) 750 mg DAILY GT 02/16/20 11:15 02/23/20 11:14 02/18/20 09:42 Lisinopril (ZestriL) 2.5 mg BID GT 02/17/20 09:45 03/18/20 09:44 02/18/20 09:17 Meropenem 1 gm/ Sodium Chloride 55 ml @ 110 mls/hr Q8HR IVPB 02/17/20 14:00 02/22/20 13:59 02/18/20 05:25 Pantoprazole (Protonix) 40 mg DAILY IVP 02/13/20 09:00 03/14/20 08:59 02/18/20 09:17 Vancomycin HCl (Vanco pharmacy to dose) 1 ea DAILY PRN MISC Per rx protocol 02/12/20 11:30 03/13/20 11:29 Vancomycin HCl 1 gm/Sodium Chloride 275 ml @ 183.708 mls/hr Q12H IVPB 02/13/20 00:00 02/22/20 23:59 02/17/20 23:29 Zinc Sulfate (Zinc Sulfate) 220 mg DAILY GT 02/17/20 09:00 02/27/20 08:59 02/18/20 09:17 Assessment/Plan Assessment/Plan IMPRESSION: 1. Bilateral lung pneumonia (HCAP) with pseudomonas/stenotrophomonas 2. Leukocytosis. Resolved 3. Lactic acidemia. 4. Endo-tracheal bleeding/hemoptysis... Hgb stable post-transfusion 5. Chronic tracheostomy. 6. Chronic vent dependence. 7. Chronic G-tube. 8. Previous CVA. DISCUSSION: Continue broad-spectrum antibiotics. Oxygen and pulmonary hygiene. Tracheostomy site is clean CT chest confirms dense bilateral pneumonia Micro - stentotrophomonas/pseudomonas I will follow carefully. DVT and GI prophylaxes. OK to dc back to SNF Will need IV abx (Meropenem) Kandy Golden Omar Syed MD Feb 18, 2020 09:55
[2020-02-18] MEDS: Vancomycin 1 GM in NS 275 ML IVPB SCH (11:34)
[2020-02-18 12:00] VITALS: BP 157/90
[2020-02-18] MEDS ORDERED: Lidocaine 1% Plain 30 ml INJ PRN (12:30)
[2020-02-18] MEDS ORDERED: Heparin1,000 units/500ml Premix(Conc:2 units/ml) IV PRN (12:30)
--- NOTE | 2020-02-18 12:52 | Cardiac Electrophysiology PN ---
Assessment/Plan Assessment/Plan 1. Atrial fibrillation with rapid ventricular response. On Cardizem 60 mg tid Off anticoagulation for tracheal bleed. In SR with first degree AVB 2. Accelerated hypertension. On Cardizem and Lisinopril 5 bid 3. Bleeding from the trach site. Further evaluation by Surgery. S/P PRBC 4. Ventilator-respiratory failure. Further evaluation by Dr. Otero. 5. Dysphagia, status post PEG placement. 6. Elevated white count and sepsis, on IV antibiotic. DW RN Subjective Subjective BP better. Fio2 45% and PEEP 5. Cardizem was decreased yesterday for bradycardia. Objective Last 24 Hour Vital Signs Date Time Temp Pulse Resp B/P (MAP) Pulse Ox O2 Delivery O2 Flow Rate FiO2 02/18/20 12:00 74 02/18/20 12:00 40 02/18/20 11:15 84 20 40 02/18/20 09:17 151/67 02/18/20 08:46 63 16 40 02/18/20 08:00 60 02/18/20 08:00 Mechanical Ventilator 02/18/20 07:59 40 02/18/20 07:59 98.1 66 20 151/67 (95) 100 02/18/20 07:04 60 15 40 02/18/20 05:26 62 133/57 02/18/20 04:34 78 20 40 02/18/20 04:00 97.7 84 18 152/87 (108) 100 02/18/20 04:00 Mechanical Ventilator 02/18/20 04:00 40 02/18/20 03:27 64 02/18/20 02:32 58 13 40 02/18/20 00:45 61 15 40 02/18/20 00:00 97.6 92 18 158/80 (106) 100 02/18/20 00:00 Mechanical Ventilator 02/17/20 23:30 61 02/17/20 22:39 64 12 40 02/17/20 21:22 63 151/78 02/17/20 20:46 59 13 40 02/17/20 20:00 40 02/17/20 20:00 97.8 61 18 160/80 (106) 100 02/17/20 20:00 Mechanical Ventilator 02/17/20 19:21 58 02/17/20 18:58 58 13 40 02/17/20 17:36 157/75 02/17/20 16:55 57 13 40 02/17/20 16:00 Mechanical Ventilator 02/17/20 16:00 40 02/17/20 16:00 98.1 66 18 157/75 (102) 100 02/17/20 15:48 60 02/17/20 15:12 52 14 40 02/17/20 15:05 66 159/88 02/17/20 13:20 56 13 40 Intake and Output 02/17/20 02/18/20 19:00 07:00 Intake Total 1749.916 ml 1120.000 ml Output Total 2450 ml Balance -700.084 ml 1120.000 ml Intake Free Water 150 ml 150 ml IV Total 1159.916 ml 385.000 ml Tube Feeding 440 ml 585 ml Output Urine Total 2450 ml Laboratory Tests Test 02/18/20 03:25 White Blood Count 7.0 K/UL (4.8-10.8) Red Blood Count 3.06 M/UL (4.70-6.10) L Hemoglobin 9.7 G/DL (14.2-18.0) L Hematocrit 31.4 % (42.0-52.0) L Mean Corpuscular Volume 103 FL (80-99) H Mean Corpuscular Hemoglobin 31.5 PG (27.0-31.0) H Mean Corpuscular Hemoglobin Concent 30.7 G/DL (32.0-36.0) L Red Cell Distribution Width 17.3 % (11.6-14.8) H Platelet Count 159 K/UL (150-450) Mean Platelet Volume 6.2 FL (6.5-10.1) L Neutrophils (%) (Auto) 65.6 % (45.0-75.0) Lymphocytes (%) (Auto) 8.0 % (20.0-45.0) L Monocytes (%) (Auto) 6.3 % (1.0-10.0) Eosinophils (%) (Auto) 19.4 % (0.0-3.0) H Basophils (%) (Auto) 0.8 % (0.0-2.0) Sodium Level 142 MMOL/L (136-145) Potassium Level 3.9 MMOL/L (3.5-5.1) Chloride Level 108 MMOL/L (98-107) H Carbon Dioxide Level 30 MMOL/L (21-32) Anion Gap 4 mmol/L (5-15) L Blood Urea Nitrogen 10 mg/dL (7-18) Creatinine 0.7 MG/DL (0.55-1.30) Estimat Glomerular Filtration Rate > 60 mL/min (>60) Glucose Level 115 MG/DL (74-106) H Calcium Level 7.9 MG/DL (8.5-10.1) L Phosphorus Level 2.5 MG/DL (2.5-4.9) Magnesium Level 2.0 MG/DL (1.8-2.4) Total Bilirubin 2.2 MG/DL (0.2-1.0) H Direct Bilirubin 1.6 MG/DL (0.0-0.3) H Aspartate Amino Transf (AST/SGOT) 41 U/L (15-37) H Alanine Aminotransferase (ALT/SGPT) 28 U/L (12-78) Alkaline Phosphatase 48 U/L (46-116) Total Protein 6.1 G/DL (6.4-8.2) L Albumin 2.1 G/DL (3.4-5.0) L Globulin 4.0 g/dL Albumin/Globulin Ratio 0.5 (1.0-2.7) L Hepatitis A IgM Antibody Pending Hepatitis B Surface Antigen Pending Hepatitis B Core IgM Antibody Pending Hepatitis C Antibody Pending Objective HEAD AND NECK: No JVD. Status post tracheostomy LUNGS: Coarse rhonchi. CARDIOVASCULAR: Shows irregular S1 and S2 with no gallop. ABDOMEN: Soft. Status post G-tube. EXTREMITIES: No pitting edema. Liang Barry MD Feb 18, 2020 12:52
--- NOTE | 2020-02-18 12:58 | Infectious Diseases Prog Note ---
Assessment/Plan Assessment/Plan IMPRESSION: Sepsis with Staph aureus (MRSA) Pseudomonas, E coli & Steotrophomonas pneumonia, Tracheostomy complication with bleeding. 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 Subjective ROS Limited/Unobtainable: Yes Allergies: Coded Allergies: No Known Allergies (Unverified , 02/11/20) Objective Last 24 Hour Vital Signs Date Time Temp Pulse Resp B/P (MAP) Pulse Ox O2 Delivery O2 Flow Rate FiO2 02/18/20 12:00 74 02/18/20 12:00 40 02/18/20 11:15 84 20 40 02/18/20 09:17 151/67 02/18/20 08:46 63 16 40 02/18/20 08:00 60 02/18/20 08:00 Mechanical Ventilator 02/18/20 07:59 40 02/18/20 07:59 98.1 66 20 151/67 (95) 100 02/18/20 07:04 60 15 40 02/18/20 05:26 62 133/57 02/18/20 04:34 78 20 40 02/18/20 04:00 97.7 84 18 152/87 (108) 100 02/18/20 04:00 Mechanical Ventilator 02/18/20 04:00 40 02/18/20 03:27 64 02/18/20 02:32 58 13 40 02/18/20 00:45 61 15 40 02/18/20 00:00 97.6 92 18 158/80 (106) 100 02/18/20 00:00 Mechanical Ventilator 02/17/20 23:30 61 02/17/20 22:39 64 12 40 02/17/20 21:22 63 151/78 02/17/20 20:46 59 13 40 02/17/20 20:00 40 02/17/20 20:00 97.8 61 18 160/80 (106) 100 02/17/20 20:00 Mechanical Ventilator 02/17/20 19:21 58 02/17/20 18:58 58 13 40 02/17/20 17:36 157/75 02/17/20 16:55 57 13 40 02/17/20 16:00 Mechanical Ventilator 02/17/20 16:00 40 02/17/20 16:00 98.1 66 18 157/75 (102) 100 02/17/20 15:48 60 02/17/20 15:12 52 14 40 02/17/20 15:05 66 159/88 02/17/20 13:20 56 13 40 Height (Feet): 5 Height (Inches): 8.00 Weight (Pounds): 212 HEENT: status post trach Respiratory/Chest: decreased breath sounds, other - on ventilator Cardiovascular: normal rate Abdomen: soft, non tender, other - GT feeding Extremities: other - edema Neurologic/Psychiatric: other - opens eye Laboratory Tests Test 02/18/20 03:25 White Blood Count 7.0 K/UL (4.8-10.8) Red Blood Count 3.06 M/UL (4.70-6.10) L Hemoglobin 9.7 G/DL (14.2-18.0) L Hematocrit 31.4 % (42.0-52.0) L Mean Corpuscular Volume 103 FL (80-99) H Mean Corpuscular Hemoglobin 31.5 PG (27.0-31.0) H Mean Corpuscular Hemoglobin Concent 30.7 G/DL (32.0-36.0) L Red Cell Distribution Width 17.3 % (11.6-14.8) H Platelet Count 159 K/UL (150-450) Mean Platelet Volume 6.2 FL (6.5-10.1) L Neutrophils (%) (Auto) 65.6 % (45.0-75.0) Lymphocytes (%) (Auto) 8.0 % (20.0-45.0) L Monocytes (%) (Auto) 6.3 % (1.0-10.0) Eosinophils (%) (Auto) 19.4 % (0.0-3.0) H Basophils (%) (Auto) 0.8 % (0.0-2.0) Sodium Level 142 MMOL/L (136-145) Potassium Level 3.9 MMOL/L (3.5-5.1) Chloride Level 108 MMOL/L (98-107) H Carbon Dioxide Level 30 MMOL/L (21-32) Anion Gap 4 mmol/L (5-15) L Blood Urea Nitrogen 10 mg/dL (7-18) Creatinine 0.7 MG/DL (0.55-1.30) Estimat Glomerular Filtration Rate > 60 mL/min (>60) Glucose Level 115 MG/DL (74-106) H Calcium Level 7.9 MG/DL (8.5-10.1) L Phosphorus Level 2.5 MG/DL (2.5-4.9) Magnesium Level 2.0 MG/DL (1.8-2.4) Total Bilirubin 2.2 MG/DL (0.2-1.0) H Direct Bilirubin 1.6 MG/DL (0.0-0.3) H Aspartate Amino Transf (AST/SGOT) 41 U/L (15-37) H Alanine Aminotransferase (ALT/SGPT) 28 U/L (12-78) Alkaline Phosphatase 48 U/L (46-116) Total Protein 6.1 G/DL (6.4-8.2) L Albumin 2.1 G/DL (3.4-5.0) L Globulin 4.0 g/dL Albumin/Globulin Ratio 0.5 (1.0-2.7) L Hepatitis A IgM Antibody Pending Hepatitis B Surface Antigen Pending Hepatitis B Core IgM Antibody Pending Hepatitis C Antibody Pending Current Medications Medications (Trade) Dose Ordered Sig/Natalia Route PRN Reason Start Time Stop Time Status Last Admin Dose Admin Acetaminophen (Tylenol) 650 mg Q4H PRN GT Temp >100.5 02/11/20 13:30 03/12/20 13:29 Acetaminophen (Tylenol) 650 mg Q4H PRN GT Mild Pain (Pain Scale 1-3) 02/11/20 13:45 03/12/20 13:44 Ascorbic Acid (Vitamin C) 500 mg DAILY GT 02/17/20 09:00 03/18/20 08:59 02/18/20 09:19 Diltiazem HCl (Cardizem Tab) 60 mg Q8HR GT 02/16/20 14:00 03/12/20 17:59 02/18/20 05:26 Heparin Sodium (Porcine) (Heparin 5000 units/ml) 5,000 units EVERY 12 HOURS SUBQ 02/12/20 21:00 03/28/20 20:59 02/18/20 09:19 Heparin Sodium/ Sodium Chloride (Heparin 1000 units/500ml Premix) 1,000 unit ONCE PRN IV PICC line placement 02/18/20 12:30 02/20/20 12:29 Hydralazine HCl (Apresoline) 10 mg Q4H PRN IV BP over 160 syst 02/16/20 10:10 05/16/20 10:09 Levetiracetam (Keppra) 1,500 mg Q12HR GT 02/11/20 21:00 03/12/20 20:59 02/18/20 09:16 Levofloxacin (Levaquin) 750 mg DAILY GT 02/16/20 11:15 02/23/20 11:14 02/18/20 09:42 Lidocaine HCl (Xylocaine 1% 30ml) 30 ml ONCE PRN INJ picc line placement 02/18/20 12:30 02/20/20 12:29 Lisinopril (ZestriL) 5 mg BID GT 02/18/20 18:00 03/18/20 09:44 Meropenem 1 gm/ Sodium Chloride 55 ml @ 110 mls/hr Q8HR IVPB 02/17/20 14:00 02/22/20 13:59 02/18/20 05:25 Pantoprazole (Protonix) 40 mg DAILY IVP 02/13/20 09:00 03/14/20 08:59 02/18/20 09:17 Vancomycin HCl (Vanco pharmacy to dose) 1 ea DAILY PRN MISC Per rx protocol 02/12/20 11:30 03/13/20 11:29 Vancomycin HCl 1 gm/Sodium Chloride 275 ml @ 183.708 mls/hr Q12H IVPB 02/13/20 00:00 02/22/20 23:59 02/18/20 11:34 Zinc Sulfate (Zinc Sulfate) 220 mg DAILY GT 02/17/20 09:00 02/27/20 08:59 02/18/20 09:17 Ulises Vasquez MD Feb 18, 2020 12:58
[2020-02-18] MEDS ORDERED: Tubing IV Secondary IV ONE (13:36)
--- NOTE | 2020-02-18 14:16 | NUR ---
GOAT FARMERSTEEL CHECKER SI: RESP FAILURE TRACH/VENT DEPENDENT,SEPSIS T. 98.1 HR 66 RR 20 B/P 150/67 AC 12 TV 500 FIO2 40% PEEP 5 IS: MEROPENEM IV VANCO IV LEVAQUIN GT HEPARIN SUBC PICC LINE INSERTION STEP DOWN STATUS
--- NOTE | 2020-02-18 14:18 | NUR ---
WATER RESOURCE ENGINEERING SPECIALIST NOTES CLINICALS REVIEWED AND FAXED.
[2020-02-18] MEDS ORDERED: 1/2 NS 1000ml IV ONE (14:29)
--- NOTE | 2020-02-18 15:17 | Brief Operative Note ---
Immediate Post Operative Note Operative Note Pre-op Diagnosis: needs access Procedure: PICC Post-op Diagnosis: same as pre-op Surgeon: Zohra PAPPAS Specimen: none Complications: none Fluids: none Implant(s) used?: No Amol Pappas MD Feb 18, 2020 15:17
--- NOTE | 2020-02-18 15:49 | Surgery Progress Note ---
Surgery Progress Note Subjective Additional Comments no active bleeding h/h stable agree with pulm no n/v labs noted exam stable Objective Last 24 Hour Vital Signs Date Time Temp Pulse Resp B/P (MAP) Pulse Ox O2 Delivery O2 Flow Rate FiO2 02/18/20 15:21 87 20 40 02/18/20 14:36 74 157/90 02/18/20 13:09 84 22 40 02/18/20 12:00 98.1 83 19 157/90 (112) 99 02/18/20 12:00 74 02/18/20 12:00 40 02/18/20 11:15 84 20 40 02/18/20 09:17 151/67 02/18/20 08:46 63 16 40 02/18/20 08:00 60 02/18/20 08:00 Mechanical Ventilator 02/18/20 07:59 40 02/18/20 07:59 98.1 66 20 151/67 (95) 100 02/18/20 07:04 60 15 40 02/18/20 05:26 62 133/57 02/18/20 04:34 78 20 40 02/18/20 04:00 97.7 84 18 152/87 (108) 100 02/18/20 04:00 Mechanical Ventilator 02/18/20 04:00 40 02/18/20 03:27 64 02/18/20 02:32 58 13 40 02/18/20 00:45 61 15 40 02/18/20 00:00 97.6 92 18 158/80 (106) 100 02/18/20 00:00 Mechanical Ventilator 02/17/20 23:30 61 02/17/20 22:39 64 12 40 02/17/20 21:22 63 151/78 02/17/20 20:46 59 13 40 02/17/20 20:00 40 02/17/20 20:00 97.8 61 18 160/80 (106) 100 02/17/20 20:00 Mechanical Ventilator 02/17/20 19:21 58 02/17/20 18:58 58 13 40 02/17/20 17:36 157/75 02/17/20 16:55 57 13 40 02/17/20 16:00 Mechanical Ventilator 02/17/20 16:00 40 02/17/20 16:00 98.1 66 18 157/75 (102) 100 I&O Intake and Output 02/17/20 02/18/20 19:00 07:00 Intake Total 1749.916 ml 1120.000 ml Output Total 2450 ml Balance -700.084 ml 1120.000 ml Intake Free Water 150 ml 150 ml IV Total 1159.916 ml 385.000 ml Tube Feeding 440 ml 585 ml Output Urine Total 2450 ml Dressing: saturated Wound: clean Cardiovascular: RSR Respiratory: clear, decreased breath sounds Abdomen: soft, non-tender, present bowel sounds Extremities: no edema, no tenderness, no cyanosis Laboratory Tests Test 02/18/20 03:25 02/18/20 12:00 White Blood Count 7.0 K/UL (4.8-10.8) Red Blood Count 3.06 M/UL (4.70-6.10) L Hemoglobin 9.7 G/DL (14.2-18.0) L Hematocrit 31.4 % (42.0-52.0) L Mean Corpuscular Volume 103 FL (80-99) H Mean Corpuscular Hemoglobin 31.5 PG (27.0-31.0) H Mean Corpuscular Hemoglobin Concent 30.7 G/DL (32.0-36.0) L Red Cell Distribution Width 17.3 % (11.6-14.8) H Platelet Count 159 K/UL (150-450) Mean Platelet Volume 6.2 FL (6.5-10.1) L Neutrophils (%) (Auto) 65.6 % (45.0-75.0) Lymphocytes (%) (Auto) 8.0 % (20.0-45.0) L Monocytes (%) (Auto) 6.3 % (1.0-10.0) Eosinophils (%) (Auto) 19.4 % (0.0-3.0) H Basophils (%) (Auto) 0.8 % (0.0-2.0) Sodium Level 142 MMOL/L (136-145) Potassium Level 3.9 MMOL/L (3.5-5.1) Chloride Level 108 MMOL/L (98-107) H Carbon Dioxide Level 30 MMOL/L (21-32) Anion Gap 4 mmol/L (5-15) L Blood Urea Nitrogen 10 mg/dL (7-18) Creatinine 0.7 MG/DL (0.55-1.30) Estimat Glomerular Filtration Rate > 60 mL/min (>60) Glucose Level 115 MG/DL (74-106) H Calcium Level 7.9 MG/DL (8.5-10.1) L Phosphorus Level 2.5 MG/DL (2.5-4.9) Magnesium Level 2.0 MG/DL (1.8-2.4) Total Bilirubin 2.2 MG/DL (0.2-1.0) H Direct Bilirubin 1.6 MG/DL (0.0-0.3) H Aspartate Amino Transf (AST/SGOT) 41 U/L (15-37) H Alanine Aminotransferase (ALT/SGPT) 28 U/L (12-78) Alkaline Phosphatase 48 U/L (46-116) Total Protein 6.1 G/DL (6.4-8.2) L Albumin 2.1 G/DL (3.4-5.0) L Globulin 4.0 g/dL Albumin/Globulin Ratio 0.5 (1.0-2.7) L Hepatitis A IgM Antibody Pending Hepatitis B Surface Antigen Pending Hepatitis B Core IgM Antibody Pending Hepatitis C Antibody Pending Stool Occult Blood Pending Plan Problems: (1) Sepsis Assessment & Plan: H&H has been stable since transfusion. Still with bloody aspirate with deep suctioning. No bleeding around tracheostomy site. LFTs remain elevated T bili direct bili ultrasound ordered (2) Aspiration pneumonia (3) Tracheostomy complication Assessment & Plan: This 84-year-old male with bleeding from tracheostomy noted in facility. Since has had some residue within the suctioning. Trach evaluated bedside no active bleeding noted. No skin issues. Mild granulation tissue. Able to manipulate and function without problem. Deep suctioning performed no active bleeding identified. Potential isolated incident we will continue to monitor over the next 2 to 3 days to ensure no active bleeding or source of bleeding that requires intervention. Thank you allowing me to participate in patient's care There is infiltrate at the left lung base. There may be some pleural fluid. The heart size is normal. There is a tracheostomy. noted some blood with suction trach okay ? bronch as per pulm Impression: Left basilar infiltrate and possible pleural fluid Tracheostomy (4) Tracheostomy malfunction Assessment & Plan: DAILY ESTIMATED NEEDS: Needs based on Critical care, wound/ 76kg abw 22-28 kcals/kg 5404-7883 total kcals 1.25-2 g protein/kg 95-152 g total protein 25-30 mL/kg 8764-6062 total fluid mLs NUTRITION DIAGNOSIS: * Swallowing difficulty R/T respiratory status as evidenced by trach/vent dep, PEG dep, NPO at this time. * Increased kcal/prot/micronutrients needs R/T wound healing as evidenced by pt admitted w/ stage 3 R lateral ankle wound. CURRENT TF: Vital @30 ENTERAL NUTRITION RECOMMENDATIONS: Glucerna 1.5 @ 55ml/hr x 24 hrs to provide 1320ml, 1980kcal, 109g prot, 1002ml free water * As medically appropriate, initiate Glucerna 1.5 @ 25ml/hr x 6hrs * Advance 10ml q 4-6 hrs as tolerated to goal rate * HOB over 30 degrees/ water flush per MD ADDITIONAL RECOMMENDATIONS: * Calibrated bedscale wt * Wound healing: TF rec @ goal provides 100% RDI add Vit C 500mg QD, ZnSO4 220mg QD x 10 days Yuriy BID via PEG w/ TF order * Monitor BGs, need for NISS * Rekha rodriguez, rec repletion Yousuf Samayoa Feb 18, 2020 15:49
[2020-02-18 15:51] VITALS: BP 156/86
--- NOTE | 2020-02-18 17:40 | NUR ---
RADIOLOGY NOTE: LEFT UPPER EXTREMITY PICC LINE PLACEMENT BY DR. CAITLYN ANDREWS AT 1325 HRS. FA
--- NOTE | 2020-02-18 19:30 | NUR ---
NURSE NOTES: received report from CAROLEE Segura RN. pt remains stable. pt is non verbal neuro shah. no acute change in pts mentation. pt is on monitor car operator showing SR, no acute cardiac distress noted. pt is trach vented, sating 98% O2, no acute resp distress. pt bed is low, locked, armed, call light within reach, bed rails up times 3, will follow plan of care.
--- NOTE | 2020-02-18 19:50 | NUR ---
NURSE NOTES:HAND-OFF: Report given to ASHLEY ALCARAZ.
[2020-02-18 20:00] VITALS: BP 159/76
--- NOTE | 2020-02-18 20:21 | General Progress Note ---
Subjective ROS Limited/Unobtainable: Yes Allergies: Coded Allergies: No Known Allergies (Unverified , 02/11/20) Objective Last 24 Hour Vital Signs Date Time Temp Pulse Resp B/P (MAP) Pulse Ox O2 Delivery O2 Flow Rate FiO2 02/18/20 19:12 68 19 40 02/18/20 18:39 150/87 02/18/20 17:19 100 22 40 02/18/20 16:00 40 02/18/20 16:00 88 02/18/20 16:00 Mechanical Ventilator 02/18/20 15:51 98.0 86 20 156/86 (109) 97 02/18/20 15:21 87 20 40 02/18/20 14:36 74 157/90 02/18/20 13:09 84 22 40 02/18/20 12:00 98.1 83 19 157/90 (112) 99 02/18/20 12:00 Mechanical Ventilator 02/18/20 12:00 74 02/18/20 12:00 40 02/18/20 11:15 84 20 40 02/18/20 09:17 151/67 02/18/20 08:46 63 16 40 02/18/20 08:00 60 02/18/20 08:00 Mechanical Ventilator 02/18/20 07:59 40 02/18/20 07:59 98.1 66 20 151/67 (95) 100 02/18/20 07:04 60 15 40 02/18/20 05:26 62 133/57 02/18/20 04:34 78 20 40 02/18/20 04:00 97.7 84 18 152/87 (108) 100 02/18/20 04:00 Mechanical Ventilator 02/18/20 04:00 40 02/18/20 03:27 64 02/18/20 02:32 58 13 40 02/18/20 00:45 61 15 40 02/18/20 00:00 97.6 92 18 158/80 (106) 100 02/18/20 00:00 Mechanical Ventilator 02/17/20 23:30 61 02/17/20 22:39 64 12 40 02/17/20 21:22 63 151/78 02/17/20 20:46 59 13 40 Intake and Output 02/17/20 02/18/20 19:00 07:00 Intake Total 1749.916 ml 1120.000 ml Output Total 2450 ml Balance -700.084 ml 1120.000 ml Intake Free Water 150 ml 150 ml IV Total 1159.916 ml 385.000 ml Tube Feeding 440 ml 585 ml Output Urine Total 2450 ml Laboratory Tests 02/18/20 03:25: White Blood Count 7.0, Red Blood Count 3.06L, Hemoglobin 9.7L, Hematocrit 31.4L, Mean Corpuscular Volume 103H, Mean Corpuscular Hemoglobin 31.5H, Mean Corpuscular Hemoglobin Concent 30.7L, Red Cell Distribution Width 17.3H, Platelet Count 159, Mean Platelet Volume 6.2L, Neutrophils (%) (Auto) 65.6, L ymphocytes (%) (Auto) 8.0L, Monocytes (%) (Auto) 6.3, Eosinophils (%) (Auto) 19.4H, Basophils (%) (Auto) 0.8, Sodium Level 142, Potassium Level 3.9, Chloride Level 108H, Carbon Dioxide Level 30, Anion Gap 4L, Blood Urea Nitrogen 10, Creatinine 0.7, Estimat Glomerular Filtration Rate > 60, Glucose Level 115H, Calcium Level 7.9L, Phosphorus Level 2.5, Magnesium Level 2.0, Total Bilirubin 2.2H, Direct Bilirubin 1.6H, Aspartate Amino Transf (AST/SGOT) 41H, Alanine Aminotransferase (ALT/SGPT) 28, Alkaline Phosphatase 48, Total Protein 6.1L, Albumin 2.1L, Globulin 4.0, Albumin/Globulin Ratio 0.5L, Hepatitis A IgM Antibody [Pending], Hepatitis B Surface Antigen [Pending], Hepatitis B Core IgM Antibody [Pending], Hepatitis C Antibody [Pending] 02/18/20 12:00: Stool Occult Blood [Pending] Height (Feet): 5 Height (Inches): 8.00 Weight (Pounds): 212 Assessment/Plan Problem List: (1) Sepsis ICD Codes: A41.9 - Sepsis, unspecified organism SNOMED: 53404431 Qualifiers: Qualified Codes: A41.9 - Sepsis, unspecified organism; R65.20 - Severe sepsis without septic shock; J96.01 - Acute respiratory failure with hypoxia (2) Aspiration pneumonia ICD Codes: J69.0 - Pneumonitis due to inhalation of food and vomit SNOMED: 547113451 Qualifiers: Qualified Codes: J69.0 - Pneumonitis due to inhalation of food and vomit (3) Tracheostomy complication ICD Codes: J95.00 - Unspecified tracheostomy complication SNOMED: 31648315 Qualifiers: Qualified Codes: J95.00 - Unspecified tracheostomy complication (4) Tracheostomy malfunction ICD Codes: J95.03 - Malfunction of tracheostomy stoma SNOMED: 687525898 Status: progressing Assessment/Plan: afebrile on support reviewed chart andl abs no bleeding trach improved cva malnutrition peg sepsis asp pna improving resp insuff Oral Crawford MD Feb 18, 2020 20:21
--- NOTE | 2020-02-18 20:39 | Diagnostic Imaging Report ---
Indications: Needs long-term IV access Technique: Procedure performed at bedside. Procedural timeout performed. Ultrasound confirms patent compressible left basilic vein. Total sterile technique, including sterile probe cover and sterile gel, sterile gloves, hand hygiene, hat, mask,, sterile gown, large sterile drape, and preparation with 2% chlorhexidine utilized. Local anesthesia with 1% lidocaine. Under real-time ultrasound guidance, puncture basilic vein using 21-gauge needle, passage 0.018 guidewire, exchange for 4 Syriac peel-away sheath. 4 Syriac Bard dual-lumen power PICC cut to 40 cm. It was inserted through the peel-away sheath. Peel-away sheath and guidewire removed. Catheter fixed to the skin. Both catheter ports aspirated and flushed. Patient tolerated procedure well, without immediate complication. Followup chest x-ray obtained, documents catheter tip position at the mid superior vena cava Impression: Successful bedside placement of left arm PICC under sonographic guidance, as described above.
--- NOTE | 2020-02-18 21:45 | NUR ---
NURSE NOTES: assessed pts newly placed PICC line. connected TKO NS IV fluids to PICC lines. PICC line able to flush.
--- NOTE | 2020-02-18 21:46 | General Progress Note ---
Subjective Allergies: Coded Allergies: No Known Allergies (Unverified , 02/11/20) Subjective Above note tolerating feeds d/w RN (++) BM today Objective Last 24 Hour Vital Signs Date Time Temp Pulse Resp B/P (MAP) Pulse Ox O2 Delivery O2 Flow Rate FiO2 02/18/20 21:16 81 139/79 02/18/20 20:43 65 16 40 02/18/20 19:12 68 19 40 02/18/20 18:39 150/87 02/18/20 17:19 100 22 40 02/18/20 16:00 40 02/18/20 16:00 88 02/18/20 16:00 Mechanical Ventilator 02/18/20 15:51 98.0 86 20 156/86 (109) 97 02/18/20 15:21 87 20 40 02/18/20 14:36 74 157/90 02/18/20 13:09 84 22 40 02/18/20 12:00 98.1 83 19 157/90 (112) 99 02/18/20 12:00 Mechanical Ventilator 02/18/20 12:00 74 02/18/20 12:00 40 02/18/20 11:15 84 20 40 02/18/20 09:17 151/67 02/18/20 08:46 63 16 40 02/18/20 08:00 60 02/18/20 08:00 Mechanical Ventilator 02/18/20 07:59 40 02/18/20 07:59 98.1 66 20 151/67 (95) 100 02/18/20 07:04 60 15 40 02/18/20 05:26 62 133/57 02/18/20 04:34 78 20 40 02/18/20 04:00 97.7 84 18 152/87 (108) 100 02/18/20 04:00 Mechanical Ventilator 02/18/20 04:00 40 02/18/20 03:27 64 02/18/20 02:32 58 13 40 02/18/20 00:45 61 15 40 02/18/20 00:00 97.6 92 18 158/80 (106) 100 02/18/20 00:00 Mechanical Ventilator 02/17/20 23:30 61 02/17/20 22:39 64 12 40 Intake and Output 02/17/20 02/18/20 19:00 07:00 Intake Total 1749.916 ml 1120.000 ml Output Total 2450 ml Balance -700.084 ml 1120.000 ml Intake Free Water 150 ml 150 ml IV Total 1159.916 ml 385.000 ml Tube Feeding 440 ml 585 ml Output Urine Total 2450 ml Laboratory Tests 02/18/20 03:25: White Blood Count 7.0, Red Blood Count 3.06L, Hemoglobin 9.7L, Hematocrit 31.4L, Mean Corpuscular Volume 103H, Mean Corpuscular Hemoglobin 31.5H, Mean Corpuscular Hemoglobin Concent 30.7L, Red Cell Distribution Width 17.3H, Platelet Count 159, Mean Platelet Volume 6.2L, Neutrophils (%) (Auto) 65.6, Lymphocytes (%) (Auto) 8.0L, Monocytes (%) (Auto) 6.3, Eosinophils (%) (Auto) 1 9.4H, Basophils (%) (Auto) 0.8, Sodium Level 142, Potassium Level 3.9, Chloride Level 108H, Carbon Dioxide Level 30, Anion Gap 4L, Blood Urea Nitrogen 10, Creatinine 0.7, Estimat Glomerular Filtration Rate > 60, Glucose Level 115H, Calcium Level 7.9L, Phosphorus Level 2.5, Magnesium Level 2.0, Total Bilirubin 2.2H, Direct Bilirubin 1.6H, Aspartate Amino Transf (AST/SGOT) 41H, Alanine Aminotransferase (ALT/SGPT) 28, Alkaline Phosphatase 48, Total Protein 6.1L, Albumin 2.1L, Globulin 4.0, Albumin/Globulin Ratio 0.5L, Hepatitis A IgM Antibody [Pending], Hepatitis B Surface Antigen [Pending], Hepatitis B Core IgM Antibody [Pending], Hepatitis C Antibody [Pending] 02/18/20 12:00: Stool Occult Blood [Pending] Height (Feet): 5 Height (Inches): 8.00 Weight (Pounds): 212 Objective Debilitated man NCAT supple Coarse BS RR abd soft, (+) GT OBS Assessment/Plan Status: progressing Assessment/Plan: Assessment - Resp failure - s/p Trach and PEG - nodular liver - possible cirrhosis - elevated bili Recommendation - follow labs - elevated HOB - TF - check hepatitis serologies Ajit Chappell MD Feb 18, 2020 21:46
--- NOTE | 2020-02-18 23:40 | NUR ---
NURSE NOTES: preformed oral care on pt. pt is sating well at 99% O2. vital signs stable.
[2020-02-19] VITALS: BP 147/71
[2020-02-19] MEDS: Vancomycin 1 GM in NS 275 ML IVPB SCH ×3 (00:32→23:38)
--- NOTE | 2020-02-19 01:15 | NUR ---
NURSE NOTES: pt has been turned, cleaned and repositioned.
--- NOTE | 2020-02-19 03:40 | NUR ---
NURSE NOTES: pts vent running as per doctors orders. AC 12, TV 500, 40% Fio2, Peep 5. no acute resp distress noted. pt G tube is runnings as per doctor ordered, Glucerna 1.5 at 55cc/ hr.
[2020-02-19 04:00] VITALS: BP 170/92
[2020-02-19] MEDS: dilTIAZem HCl 60mg tab GT SCH ×3 (06:00→21:06)
[2020-02-19] MEDS: Meropenem 1 GM in NS 55 ML IVPB SCH ×3 (06:06→21:06)
--- NOTE | 2020-02-19 06:10 | NUR ---
NURSE NOTES: library monitor recording strip for Hydralazine IV push filled in pts chart.
--- NOTE | 2020-02-19 07:15 | NUR ---
NURSE NOTES: RECEIVED BED SIDE REPORT FROM [facility] COUNSELOR OF SCIENCE SPECIALIST. RECEIVED PT WITH HOB ELEVATED 45 DEGREE OBTUNDED TRACH TO VENT. RENDERED TRACH CARE AND ORAL HYGIENE,MOD AMT OF YELLOWISH SECRETIONS NOTED, NO EVIDENCE OF BLEEDING DURING SUCTIONING.PT TOLERATING WELL GLUCERNA 1.5 @ 55CC/HRS, NO RESIDUAL NOTED AT THIS TIME.PICC-LINE ON LT UA PATENT AND INTACT. PT REPOSITIONED Q 2HRS TO PROVIDE COMFORT AND PREVENT FURTHER SKIN BREAK DOWN. FULL BODY ASSESSMENT DONE. NO ACUTE DISTRESS NOTED AT THIS TIME. WILL CONT TO MONITOR.
--- NOTE | 2020-02-19 07:30 | NUR ---
NURSE HAND-OFF REPORT: Important Events on Shift:[monitor pts trach site.] Patient Status: [NA] Diet: [tube feeding as per doctor order.] Pending Orders: [NA] Pending Results/Labs:[NA] Pending MD notification:[NA] Latest Vital Signs: Temperature 97.7 , Pulse 72 , B/P 162 /95 , Respiratory Rate 20 , O2 SAT 99 , Mechanical Ventilator, O2 Flow Rate 5.0 . Vital Sign Comment: [stable] EKG Rhythm: Sinus Rhythm Rhythm change?: N MD Notified?: José Miguel Barry MD Response: Latest Wall Fall Score: 70 Fall Risk: High Risk Safety Measures: Call light Within Reach, Bed Alarm Zone 3, Side Rails Side Rails x3, Bed position Low and Locked. Fall Precautions: Yellow Socks Yellow Gown Door Sign Patient Fall Education Report given to [CAROLEE Segura RN].
[2020-02-19 07:51] VITALS: BP 162/95
--- NOTE | 2020-02-19 09:08 | Pulmonology Progress Note ---
Subjective ROS Limited/Unobtainable: Yes Interval Events: No peter-tracheal bleeding; still has red tinged endo-tracheal aspirate Constitutional: Denies: fever HEENT: Repors: no symptoms Respiratory: Reports: no symptoms Cardiovascular: Reports: no symptoms Gastrointestinal/Abdominal: Reports: other - NPO Allergies: Coded Allergies: No Known Allergies (Unverified , 02/11/20) Objective Last 24 Hour Vital Signs Date Time Temp Pulse Resp B/P (MAP) Pulse Ox O2 Delivery O2 Flow Rate FiO2 02/19/20 07:51 97.7 72 20 162/95 (117) 99 02/19/20 07:22 92 20 40 02/19/20 06:06 166/74 02/19/20 06:00 54 166/94 02/19/20 05:05 70 15 40 02/19/20 04:00 40 02/19/20 04:00 97.3 77 19 170/92 (118) 100 02/19/20 04:00 Mechanical Ventilator 02/19/20 03:39 66 02/19/20 02:39 64 13 40 02/19/20 00:37 68 14 40 02/19/20 00:00 97.0 62 20 147/71 (96) 100 02/19/20 00:00 Mechanical Ventilator 02/19/20 00:00 40 02/19/20 00:00 58 02/18/20 22:34 67 17 40 02/18/20 21:16 81 139/79 02/18/20 20:43 65 16 40 02/18/20 20:00 97.5 61 20 159/76 (103) 98 02/18/20 20:00 Mechanical Ventilator 02/18/20 20:00 40 02/18/20 19:12 68 19 40 02/18/20 19:01 62 02/18/20 18:39 150/87 02/18/20 17:19 100 22 40 02/18/20 16:00 40 02/18/20 16:00 88 02/18/20 16:00 Mechanical Ventilator 02/18/20 15:51 98.0 86 20 156/86 (109) 97 02/18/20 15:21 87 20 40 02/18/20 14:36 74 157/90 02/18/20 13:09 84 22 40 02/18/20 12:00 98.1 83 19 157/90 (112) 99 02/18/20 12:00 Mechanical Ventilator 02/18/20 12:00 74 02/18/20 12:00 40 02/18/20 11:15 84 20 40 02/18/20 09:17 151/67 Intake and Output 02/18/20 02/19/20 19:00 07:00 Intake Total 1292.416 ml 1145.000 ml Output Total 2700 ml 800 ml Balance -1407.584 ml 345.000 ml Intake Free Water 100 ml 100 ml IV Total 477.416 ml 385.000 ml Tube Feeding 715 ml 660 ml Output Urine Total 2700 ml 800 ml # Bowel Movements 6 General Appearance: no acute distress HEENT: normocephalic Respiratory: chest wall non-tender, lungs clear Cardiovascular: normal peripheral pulses Abdomen: normal bowel sounds Laboratory Tests 02/18/20 12:00: Stool Occult Blood Negative Current Medications Medications (Trade) Dose Ordered Sig/Natalia Route PRN Reason Start Time Stop Time Status Last Admin Dose Admin Acetaminophen (Tylenol) 650 mg Q4H PRN GT Temp >100.5 02/11/20 13:30 03/12/20 13:29 Acetaminophen (Tylenol) 650 mg Q4H PRN GT Mild Pain (Pain Scale 1-3) 02/11/20 13:45 03/12/20 13:44 Ascorbic Acid (Vitamin C) 500 mg DAILY GT 02/17/20 09:00 03/18/20 08:59 02/18/20 09:19 Chlorhexidine Gluconate (Shirley-Hex 2%) 1 applic DAILY@1999 TOPIC 02/19/20 20:00 05/19/20 19:59 Diltiazem HCl (Cardizem Tab) 60 mg Q8HR GT 02/16/20 14:00 03/12/20 17:59 02/18/20 21:16 Heparin Sodium (Porcine) (Heparin 5000 units/ml) 5,000 units EVERY 12 HOURS SUBQ 02/12/20 21:00 03/28/20 20:59 02/18/20 21:18 Heparin Sodium/ Sodium Chloride (Heparin 1000 units/500ml Premix) 1,000 unit ONCE PRN IV PICC line placement 02/18/20 12:30 02/20/20 12:29 Hydralazine HCl (Apresoline) 10 mg Q4H PRN IV BP over 160 syst 02/16/20 10:10 05/16/20 10:09 02/19/20 06:06 Levetiracetam (Keppra) 1,500 mg Q12HR GT 02/11/20 21:00 03/12/20 20:59 02/18/20 21:15 Levofloxacin (Levaquin) 750 mg DAILY GT 02/16/20 11:15 02/23/20 11:14 02/18/20 09:42 Lidocaine HCl (Xylocaine 1% 30ml) 30 ml ONCE PRN INJ picc line placement 02/18/20 12:30 02/20/20 12:29 Lisinopril (ZestriL) 5 mg BID GT 02/18/20 18:00 03/18/20 09:44 02/18/20 18:39 Meropenem 1 gm/ Sodium Chloride 55 ml @ 110 mls/hr Q8HR IVPB 02/17/20 14:00 02/22/20 13:59 02/19/20 06:06 Pantoprazole (Protonix) 40 mg DAILY IVP 02/13/20 09:00 03/14/20 08:59 02/18/20 09:17 Vancomycin HCl (Vanco pharmacy to dose) 1 ea DAILY PRN MISC Per rx protocol 02/12/20 11:30 03/13/20 11:29 Vancomycin HCl 1 gm/Sodium Chloride 275 ml @ 183.708 mls/hr Q12H IVPB 02/13/20 00:00 02/22/20 23:59 02/19/20 00:32 Zinc Sulfate (Zinc Sulfate) 220 mg DAILY GT 02/17/20 09:00 02/27/20 08:59 02/18/20 09:17 Assessment/Plan Assessment/Plan IMPRESSION: 1. Bilateral lung pneumonia (HCAP) with pseudomonas/stenotrophomonas 2. Leukocytosis. Resolved 3. Lactic acidemia. 4. Endo-tracheal bleeding/hemoptysis... Hgb stable post-transfusion 5. Chronic tracheostomy. 6. Chronic vent dependence. 7. Chronic G-tube. 8. Previous CVA. DISCUSSION: Continue broad-spectrum antibiotics. Oxygen and pulmonary hygiene. Tracheostomy site is clean CT chest confirms dense bilateral pneumonia Micro - stentotrophomonas/pseudomonas I will follow carefully. DVT and GI prophylaxes. OK to dc back to SNF Will need IV abx (Meropenem) Kandy Golden Omar Syed MD Feb 19, 2020 09:08
--- NOTE | 2020-02-19 09:23 | NUR ---
RD ASSESSMENT & RECOMMENDATIONS SEE CARE ACTIVITY FOR COMPLETE ASSESSMENT DAILY ESTIMATED NEEDS: Needs based on Critical care, wound/ 76kg abw 22-28 kcals/kg 8970-7920 total kcals 1.25-2 g protein/kg 95-152 g total protein 25-30 mL/kg 8814-2045 total fluid mLs NUTRITION DIAGNOSIS: * Swallowing difficulty R/T respiratory status as evidenced by trach/vent dep, PEG dep. * Increased kcal/prot/micronutrients needs R/T wound healing as evidenced by pt admitted w/ stage 3 R lateral ankle wound. CURRENT TF:Glucerna 1.5 @55 ENTERAL NUTRITION RECOMMENDATIONS: Glucerna 1.5 @ 55ml/hr x 24 hrs to provide 1320ml, 1980kcal, 109g prot, 1002ml free water * As medically appropriate, initiate Glucerna 1.5 @ 25ml/hr x 6hrs * Advance 10ml q 4-6 hrs as tolerated to goal rate * HOB over 30 degrees/ water flush per MD ADDITIONAL RECOMMENDATIONS: * Calibrated bedscale wt-> daily wts are variable. * Wound healing: TF rec @ goal provides 100% RDI add Vit C 500mg QD, ZnSO4 220mg QD x 10 days Yuriy BID via PEG w/ TF order * Monitor BGs, need for NISS-> good glycemic control * Lytes wnl, monitor need for repletion
[2020-02-19] MEDS: Ascorbic Acid 500mg tab GT SCH (09:40)
[2020-02-19] MEDS: Zinc Sulfate 220mg GT SCH (09:40)
[2020-02-19] MEDS: levETIRAcetam 500mg/5ml Liquid GT SCH ×2 (09:40→20:51)
[2020-02-19] MEDS: Pantoprazole Inj IVP SCH (09:40)
--- NOTE | 2020-02-19 09:40 | Nephrology Progress Note ---
Assessment/Plan Problem List: (1) Electrolyte imbalance (2) HTN (hypertension) (3) Aspiration pneumonia (4) Tracheostomy complication (5) Anemia (6) Chronic respiratory failure Assessment Electrolyte imbalance, hypokalemia Normal BUN/creatinine Sepsis leukocytosis tachycardia with left-sided pneumonia Tracheostomy complication with bleeding Anemia Ventilator dependent respiratory failure Atrial fibrillation PEG Plan February 18: No chemistry panel done today. Stable from renal standpoint of view. February 17: Labs reviewed. Abnormal electrolytes addressed. Blood pressure medication adjusted. Continue as is. February 16: Potassium supplement, phosphorus, magnesium supplement as needed. Monitor electrolytes and chemistries. Discontinued IV fluid. Adjust blood pressure medication, Zestril added and 1 dose of Lasix 20 mg given Subjective ROS Limited/Unobtainable: Yes Objective Objective Last 24 Hour Vital Signs Date Time Temp Pulse Resp B/P (MAP) Pulse Ox O2 Delivery O2 Flow Rate FiO2 02/19/20 07:51 97.7 72 20 162/95 (117) 99 02/19/20 07:22 92 20 40 02/19/20 06:06 166/74 02/19/20 06:00 54 166/94 02/19/20 05:05 70 15 40 02/19/20 04:00 40 02/19/20 04:00 97.3 77 19 170/92 (118) 100 02/19/20 04:00 Mechanical Ventilator 02/19/20 03:39 66 02/19/20 02:39 64 13 40 02/19/20 00:37 68 14 40 02/19/20 00:00 97.0 62 20 147/71 (96) 100 02/19/20 00:00 Mechanical Ventilator 02/19/20 00:00 40 02/19/20 00:00 58 02/18/20 22:34 67 17 40 02/18/20 21:16 81 139/79 02/18/20 20:43 65 16 40 02/18/20 20:00 97.5 61 20 159/76 (103) 98 02/18/20 20:00 Mechanical Ventilator 02/18/20 20:00 40 02/18/20 19:12 68 19 40 02/18/20 19:01 62 02/18/20 18:39 150/87 02/18/20 17:19 100 22 40 02/18/20 16:00 40 02/18/20 16:00 88 02/18/20 16:00 Mechanical Ventilator 02/18/20 15:51 98.0 86 20 156/86 (109) 97 02/18/20 15:21 87 20 40 02/18/20 14:36 74 157/90 02/18/20 13:09 84 22 40 02/18/20 12:00 98.1 83 19 157/90 (112) 99 02/18/20 12:00 Mechanical Ventilator 02/18/20 12:00 74 02/18/20 12:00 40 02/18/20 11:15 84 20 40 Intake and Output 02/18/20 02/19/20 19:00 07:00 Intake Total 1292.416 ml 1145.000 ml Output Total 2700 ml 800 ml Balance -1407.584 ml 345.000 ml Intake Free Water 100 ml 100 ml IV Total 477.416 ml 385.000 ml Tube Feeding 715 ml 660 ml Output Urine Total 2700 ml 800 ml # Bowel Movements 6 No chemistry panel done today laboratory Tests 02/18/20 12:00: Stool Occult Blood Negative Height (Feet): 5 Height (Inches): 8.00 Weight (Pounds): 212 General Appearance: no apparent distress EENT: other - Trach and vent Cardiovascular: normal rate Respiratory/Chest: decreased breath sounds Abdomen: distended Tano Longoria MD Feb 19, 2020 09:40
[2020-02-19] MEDS: Lisinopril 2.5mg tab GT SCH (09:41)
[2020-02-19] MEDS: Levofloxacin 750mg tab GT SCH (09:42)
[2020-02-19] MEDS: Heparin 5000 units/ml inj SUBQ SCH ×2 (09:47→20:53)
--- NOTE | 2020-02-19 10:36 | Cardiac Electrophysiology PN ---
Assessment/Plan Assessment/Plan 1. Atrial fibrillation with rapid ventricular response. On Cardizem 60 mg tid Off anticoagulation for tracheal bleed. In SR with first degree AVB 2. Accelerated hypertension. On Cardizem 60 tid and increase Lisinopril to 10 bid 3. Bleeding from the trach site. Further evaluation by Surgery. S/P PRBC 4. Ventilator-respiratory failure. Further evaluation by Dr. Otero. 5. Dysphagia, status post PEG placement. 6. Elevated white count and sepsis, on IV antibiotic. LELAND RN Subjective Subjective BP 160s. Fio2 45% and PEEP 5. Cardizem was decreased for bradycardia.No more tracheal bleed Objective Last 24 Hour Vital Signs Date Time Temp Pulse Resp B/P (MAP) Pulse Ox O2 Delivery O2 Flow Rate FiO2 02/19/20 09:41 162/95 02/19/20 09:15 65 13 40 02/19/20 07:51 97.7 72 20 162/95 (117) 99 02/19/20 07:48 70 02/19/20 07:22 92 20 40 02/19/20 06:06 166/74 02/19/20 06:00 54 166/94 02/19/20 05:05 70 15 40 02/19/20 04:00 40 02/19/20 04:00 97.3 77 19 170/92 (118) 100 02/19/20 04:00 Mechanical Ventilator 02/19/20 03:39 66 02/19/20 02:39 64 13 40 02/19/20 00:37 68 14 40 02/19/20 00:00 97.0 62 20 147/71 (96) 100 02/19/20 00:00 Mechanical Ventilator 02/19/20 00:00 40 02/19/20 00:00 58 02/18/20 22:34 67 17 40 02/18/20 21:16 81 139/79 02/18/20 20:43 65 16 40 02/18/20 20:00 97.5 61 20 159/76 (103) 98 02/18/20 20:00 Mechanical Ventilator 02/18/20 20:00 40 02/18/20 19:12 68 19 40 02/18/20 19:01 62 02/18/20 18:39 150/87 02/18/20 17:19 100 22 40 11/11/20 16:00 40 02/18/20 16:00 88 02/18/20 16:00 Mechanical Ventilator 02/18/20 15:51 98.0 86 20 156/86 (109) 97 02/18/20 15:21 87 20 40 02/18/20 14:36 74 157/90 02/18/20 13:09 84 22 40 02/18/20 12:00 98.1 83 19 157/90 (112) 99 02/18/20 12:00 Mechanical Ventilator 02/18/20 12:00 74 02/18/20 12:00 40 02/18/20 11:15 84 20 40 Intake and Output 02/18/20 02/19/20 19:00 07:00 Intake Total 1292.416 ml 1145.000 ml Output Total 2700 ml 800 ml Balance -1407.584 ml 345.000 ml Intake Free Water 100 ml 100 ml IV Total 477.416 ml 385.000 ml Tube Feeding 715 ml 660 ml Output Urine Total 2700 ml 800 ml # Bowel Movements 6 Laboratory Tests Test 02/18/20 12:00 Stool Occult Blood Negative (NEGATIVE) Objective HEAD AND NECK: No JVD. Status post tracheostomy LUNGS: Coarse rhonchi. CARDIOVASCULAR: Shows irregular S1 and S2 with no gallop. ABDOMEN: Soft. Status post G-tube. EXTREMITIES: No pitting edema. Liang Barry MD Feb 19, 2020 10:36
--- NOTE | 2020-02-19 10:56 | Infectious Diseases Prog Note ---
Assessment/Plan Assessment/Plan IMPRESSION: Sepsis with Staph aureus (MRSA) Pseudomonas, E coli & Steotrophomonas pneumonia, Tracheostomy complication with bleeding. 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 Subjective ROS Limited/Unobtainable: Yes Constitutional: Denies: fever Cardiovascular: Reports: other - Had PICC line placement yesterday Allergies: Coded Allergies: No Known Allergies (Unverified , 02/11/20) Objective Last 24 Hour Vital Signs Date Time Temp Pulse Resp B/P (MAP) Pulse Ox O2 Delivery O2 Flow Rate FiO2 02/19/20 09:41 162/95 02/19/20 09:15 65 13 40 02/19/20 08:00 Mechanical Ventilator 02/19/20 07:51 97.7 72 20 162/95 (117) 99 02/19/20 07:48 70 02/19/20 07:22 92 20 40 02/19/20 06:06 166/74 02/19/20 06:00 54 166/94 02/19/20 05:05 70 15 40 02/19/20 04:00 40 02/19/20 04:00 97.3 77 19 170/92 (118) 100 02/19/20 04:00 Mechanical Ventilator 02/19/20 03:39 66 02/19/20 02:39 64 13 40 02/19/20 00:37 68 14 40 02/19/20 00:00 97.0 62 20 147/71 (96) 100 02/19/20 00:00 Mechanical Ventilator 02/19/20 00:00 40 02/19/20 00:00 58 02/18/20 22:34 67 17 40 02/18/20 21:16 81 139/79 02/18/20 20:43 65 16 40 02/18/20 20:00 97.5 61 20 159/76 (103) 98 02/18/20 20:00 Mechanical Ventilator 02/18/20 20:00 40 02/18/20 19:12 68 19 40 02/18/20 19:01 62 02/18/20 18:39 150/87 02/18/20 17:19 100 22 40 02/18/20 16:00 40 02/18/20 16:00 88 02/18/20 16:00 Mechanical Ventilator 02/18/20 15:51 98.0 86 20 156/86 (109) 97 02/18/20 15:21 87 20 40 02/18/20 14:36 74 157/90 02/18/20 13:09 84 22 40 02/18/20 12:00 98.1 83 19 157/90 (112) 99 02/18/20 12:00 Mechanical Ventilator 02/18/20 12:00 74 02/18/20 12:00 40 02/18/20 11:15 84 20 40 Height (Feet): 5 Height (Inches): 8.00 Weight (Pounds): 212 HEENT: mucous membranes moist, status post trach Respiratory/Chest: lungs clear, other - on ventilator Cardiovascular: normal rate, other - PICC line Abdomen: distended, other - GT feeding Extremities: other - generalized edema Neurologic/Psychiatric: alert Laboratory Tests Test 02/18/20 12:00 Stool Occult Blood Negative (NEGATIVE) Current Medications Medications (Trade) Dose Ordered Sig/Natalia Route PRN Reason Start Time Stop Time Status Last Admin Dose Admin Acetaminophen (Tylenol) 650 mg Q4H PRN GT Temp >100.5 02/11/20 13:30 03/12/20 13:29 Acetaminophen (Tylenol) 650 mg Q4H PRN GT Mild Pain (Pain Scale 1-3) 02/11/20 13:45 03/12/20 13:44 Ascorbic Acid (Vitamin C) 500 mg DAILY GT 02/17/20 09:00 03/18/20 08:59 02/19/20 09:40 Chlorhexidine Gluconate (Shirley-Hex 2%) 1 applic DAILY@1999 TOPIC 02/19/20 20:00 05/19/20 19:59 Diltiazem HCl (Cardizem Tab) 60 mg Q8HR GT 02/16/20 14:00 03/12/20 17:59 02/18/20 21:16 Heparin Sodium (Porcine) (Heparin 5000 units/ml) 5,000 units EVERY 12 HOURS SUBQ 02/12/20 21:00 03/28/20 20:59 02/19/20 09:47 Heparin Sodium/ Sodium Chloride (Heparin 1000 units/500ml Premix) 1,000 unit ONCE PRN IV PICC line placement 02/18/20 12:30 02/20/20 12:29 Hydralazine HCl (Apresoline) 10 mg Q4H PRN IV BP over 160 syst 02/16/20 10:10 05/16/20 10:09 02/19/20 06:06 Levetiracetam (Keppra) 1,500 mg Q12HR GT 02/11/20 21:00 03/12/20 20:59 02/19/20 09:40 Levofloxacin (Levaquin) 750 mg DAILY GT 02/16/20 11:15 02/23/20 11:14 02/19/20 09:42 Lidocaine HCl (Xylocaine 1% 30ml) 30 ml ONCE PRN INJ picc line placement 02/18/20 12:30 02/20/20 12:29 Lisinopril (ZestriL) 10 mg BID GT 02/19/20 10:45 03/18/20 09:44 Meropenem 1 gm/ Sodium Chloride 55 ml @ 110 mls/hr Q8HR IVPB 02/17/20 14:00 02/22/20 13:59 02/19/20 06:06 Pantoprazole (Protonix) 40 mg DAILY IVP 02/13/20 09:00 03/14/20 08:59 02/19/20 09:40 Vancomycin HCl (Vanco pharmacy to dose) 1 ea DAILY PRN MISC Per rx protocol 02/12/20 11:30 03/13/20 11:29 Vancomycin HCl 1 gm/Sodium Chloride 275 ml @ 183.708 mls/hr Q12H IVPB 02/13/20 00:00 02/22/20 23:59 02/19/20 00:32 Zinc Sulfate (Zinc Sulfate) 220 mg DAILY GT 02/17/20 09:00 02/27/20 08:59 02/19/20 09:40 Ulises Vasquez MD Feb 19, 2020 10:56
--- NOTE | 2020-02-19 11:16 | General Progress Note ---
Subjective ROS Limited/Unobtainable: Yes Allergies: Coded Allergies: No Known Allergies (Unverified , 02/11/20) Objective Last 24 Hour Vital Signs Date Time Temp Pulse Resp B/P (MAP) Pulse Ox O2 Delivery O2 Flow Rate FiO2 02/19/20 09:41 162/95 02/19/20 09:15 65 13 40 02/19/20 08:00 Mechanical Ventilator 02/19/20 07:51 97.7 72 20 162/95 (117) 99 02/19/20 07:48 70 02/19/20 07:22 92 20 40 02/19/20 06:06 166/74 02/19/20 06:00 54 166/94 02/19/20 05:05 70 15 40 02/19/20 04:00 40 02/19/20 04:00 97.3 77 19 170/92 (118) 100 02/19/20 04:00 Mechanical Ventilator 02/19/20 03:39 66 02/19/20 02:39 64 13 40 02/19/20 00:37 68 14 40 02/19/20 00:00 97.0 62 20 147/71 (96) 100 02/19/20 00:00 Mechanical Ventilator 02/19/20 00:00 40 02/19/20 00:00 58 02/18/20 22:34 67 17 40 02/18/20 21:16 81 139/79 02/18/20 20:43 65 16 40 02/18/20 20:00 97.5 61 20 159/76 (103) 98 02/18/20 20:00 Mechanical Ventilator 02/18/20 20:00 40 02/18/20 19:12 68 19 40 02/18/20 19:01 62 02/18/20 18:39 150/87 02/18/20 17:19 100 22 40 02/18/20 16:00 40 02/18/20 16:00 88 02/18/20 16:00 Mechanical Ventilator 02/18/20 15:51 98.0 86 20 156/86 (109) 97 02/18/20 15:21 87 20 40 02/18/20 14:36 74 157/90 02/18/20 13:09 84 22 40 02/18/20 12:00 98.1 83 19 157/90 (112) 99 11/11/20 12:00 Mechanical Ventilator 02/18/20 12:00 74 02/18/20 12:00 40 Intake and Output 02/18/20 02/19/20 19:00 07:00 Intake Total 1292.416 ml 1145.000 ml Output Total 2700 ml 800 ml Balance -1407.584 ml 345.000 ml Intake Free Water 100 ml 100 ml IV Total 477.416 ml 385.000 ml Tube Feeding 715 ml 660 ml Output Urine Total 2700 ml 800 ml # Bowel Movements 6 Laboratory Tests 02/18/20 12:00: Stool Occult Blood Negative Height (Feet): 5 Height (Inches): 8.00 Weight (Pounds): 212 Assessment/Plan Problem List: (1) Sepsis ICD Codes: A41.9 - Sepsis, unspecified organism SNOMED: 49714729 Qualifiers: Qualified Codes: A41.9 - Sepsis, unspecified organism; R65.20 - Severe sepsis without septic shock; J96.01 - Acute respiratory failure with hypoxia (2) Aspiration pneumonia ICD Codes: J69.0 - Pneumonitis due to inhalation of food and vomit SNOMED: 353900830 Qualifiers: Qualified Codes: J69.0 - Pneumonitis due to inhalation of food and vomit (3) Tracheostomy complication ICD Codes: J95.00 - Unspecified tracheostomy complication SNOMED: 07091884 Qualifiers: Qualified Codes: J95.00 - Unspecified tracheostomy complication (4) Tracheostomy malfunction ICD Codes: J95.03 - Malfunction of tracheostomy stoma SNOMED: 646996963 Status: progressing Assessment/Plan: minimal bleeding from trach is most likley due to trauma from suctioning discuss the case with dr alicia has positive blood cx no bleeding trach peg sepsis asp pna improving resp Oral Ashley MD Feb 19, 2020 11:16
[2020-02-19 12:00] VITALS: BP 157/86
[2020-02-19] MEDS: Lisinopril 10mg tab GT SCH ×2 (12:41→18:09)
--- NOTE | 2020-02-19 15:30 | Consultation ---
DATE OF CONSULTATION: 02/16/2020 GASTROENTEROLOGY CONSULTATION CHIEF COMPLAINT: I was asked to see this patient by Dr. Oral Crawford for nutritional consultation and gastrostomy management. HISTORY OF PRESENT ILLNESS: The patient is a debilitated 84-year-old man with multiple medical problems who has a tracheostomy and gastrostomy. The patient was brought into the hospital due to low hemoglobin as well as bleeding from the tracheostomy. The patient is not able to provide any history and most of the history is only available from the chart. The patient has been treated and evaluated by multiple consultants. The patient has a gastrostomy tube and a tube feeding will be started. He is on long-term laxatives. PAST MEDICAL HISTORY: History of stroke, tracheostomy, gastrostomy, in a bedbound state, hypertension, and constipation. FAMILY HISTORY: Noncontributory. SOCIAL HISTORY: The patient is a long-term retirement resident and requires [id number] care. REVIEW OF SYSTEMS: Otherwise negative. PHYSICAL EXAMINATION: GENERAL: A debilitated elderly man, seen in his room. HEENT: Normocephalic and atraumatic. Sclerae are anicteric. NECK: Tracheostomy. CARDIOVASCULAR: Regular rate. ABDOMEN: Soft. Mildly obese with the gastrostomy tube in good position. EXTREMITIES: Revealed contractures. LABORATORY DATA: Noted. ASSESSMENT: This patient has a long-term gastrostomy catheter, which will require tube feeding. He will require bowel regimen and reflux precautions. I will rewrite his feeding regimen for his diabetic diagnosis. In the meantime, his liver tests are also somewhat elevated and this will be followed. His other parameters including blood count will be followed as well. He will be transfused as necessary . Thank you for asking me to participate in the care of this patient. Ajit Chappell M.D. DR: OC JOB#: [id number] CC: ML
--- NOTE | 2020-02-19 15:37 | NUR ---
CONSTRUCTION PROJECT COORDINATORAUTOMATIC PACKER OPERATOR SI: RESP FAILURE TRACH/VENT DEPENDENT,SEPSIS T. 97.9 HR 75 RR 18 B/P 157/86 AC 12 TV 500 FIO2 40% PEEP 5 IS: MEROPENEM IV VANCO IV LEVAQUIN GT HEPARIN SUBC STEP DOWN STATUS
--- NOTE | 2020-02-19 15:39 | NUR ---
EDITOR NEWS NOTES CLINICALS REVIEWED AND FAXED.
--- NOTE | 2020-02-19 15:45 | Consultation ---
DATE OF CONSULTATION: 02/16/2020 GASTROENTEROLOGY CONSULTATION CHIEF COMPLAINT: I was asked to see this patient by Dr. Oral Crawford for evaluation of feeding. HISTORY OF PRESENT ILLNESS: The patient is a debilitated 84-year-old man who has chronic multiple medical problems, who was admitted to the hospital. He had a tracheostomy for breathing. He is on a ventilator and also has a gastrostomy tube for feeding. The feedings are currently in the morning at 30 mL/hour and the formula is Vital AF 1.2. The patient himself is unable to provide any history and most of the information is only available from the chart. PAST MEDICAL HISTORY: History of respiratory failure, status post tracheostomy, gastroparesis, dysphagia, status post gastrostomy tube placement, seizure disorder, hypertension, history of aspiration, stroke, bedbound state. FAMILY HISTORY: Unobtainable and unavailable. SOCIAL HISTORY: The patient is from a nursing facility. He requires [id number] care. Other than that, there is no social history that is obtainable or available. MEDICATIONS: See chart list for details. REVIEW OF SYSTEMS: Otherwise unavailable. PHYSICAL EXAMINATION: GENERAL: A debilitated elderly man seen in his room. HEENT: Normocephalic. NECK: Tracheostomy catheter. CHEST: Coarse breath sounds. CARDIOVASCULAR: Regular rate. ABDOMEN: Soft with gastrostomy tube. EXTREMITIES: Edema. LABORATORY DATA: Noted. ASSESSMENT: This patient is a chronic ventilator patient with needs for nutrition and feeding. The drop tester's recommendations have been reviewed and feeding can be adjusted to RD recommendations. In the meantime, multivitamin and protein supplements can also be given to help wound healing. The patient has poor long-term prognosis given his overall bedbound state and respiratory failure and encephalopathy. RECOMMENDATIONS: 1. Tube feedings as written. 2. Wound care. 3. Elevate head of bed. 4. Check residuals. 5. Bowel regimen. Thank you for asking me to participate in the care of this patient. Ajit Chappell M.D. DR: OC JOB#: [id number] CC: ML
[2020-02-19 16:00] VITALS: BP 154/74
--- NOTE | 2020-02-19 18:06 | Surgery Progress Note ---
Surgery Progress Note Subjective Additional Comments no acute events comfortable stable no bleeding d/c planning Objective Last 24 Hour Vital Signs Date Time Temp Pulse Resp B/P (MAP) Pulse Ox O2 Delivery O2 Flow Rate FiO2 02/19/20 17:28 139 20 40 02/19/20 16:00 Mechanical Ventilator 02/19/20 16:00 40 02/19/20 16:00 98.0 67 20 154/74 (100) 100 02/19/20 15:42 74 156/70 02/19/20 15:23 67 13 40 02/19/20 12:52 67 14 40 02/19/20 12:41 149/89 02/19/20 12:00 97.9 75 18 157/86 (109) 100 02/19/20 12:00 69 02/19/20 12:00 40 02/19/20 11:47 Mechanical Ventilator 02/19/20 11:25 68 13 40 02/19/20 09:41 162/95 02/19/20 09:15 65 13 40 02/19/20 08:00 40 02/19/20 08:00 Mechanical Ventilator 02/19/20 07:51 97.7 72 20 162/95 (117) 99 02/19/20 07:48 70 02/19/20 07:22 92 20 40 02/19/20 06:06 166/74 02/19/20 06:00 54 166/94 02/19/20 05:05 70 15 40 02/19/20 04:00 40 02/19/20 04:00 97.3 77 19 170/92 (118) 100 02/19/20 04:00 Mechanical Ventilator 02/19/20 03:39 66 02/19/20 02:39 64 13 40 02/19/20 00:37 68 14 40 02/19/20 00:00 97.0 62 20 147/71 (96) 100 02/19/20 00:00 Mechanical Ventilator 02/19/20 00:00 40 02/19/20 00:00 58 02/18/20 22:34 67 17 40 02/18/20 21:16 81 139/79 02/18/20 20:43 65 16 40 02/18/20 20:00 97.5 61 20 159/76 (103) 98 02/18/20 20:00 Mechanical Ventilator 02/18/20 20:00 40 02/18/20 19:12 68 19 40 02/18/20 19:01 62 02/18/20 18:39 150/87 I&O Intake and Output 02/18/20 02/19/20 19:00 07:00 Intake Total 1292.416 ml 1145.000 ml Output Total 2700 ml 800 ml Balance -1407.584 ml 345.000 ml Intake Free Water 100 ml 100 ml IV Total 477.416 ml 385.000 ml Tube Feeding 715 ml 660 ml Output Urine Total 2700 ml 800 ml # Bowel Movements 6 Dressing: saturated Cardiovascular: RSR Respiratory: decreased breath sounds Abdomen: non-tender, present bowel sounds Extremities: no tenderness, no cyanosis Laboratory Tests Test 02/19/20 11:00 Vancomycin Level Trough 18.1 ug/mL (5.0-12.0) H Plan Problems: (1) Sepsis Assessment & Plan: H&H has been stable since transfusion. Still with bloody aspirate with deep suctioning. No bleeding around tracheostomy site. LFTs remain elevated T bili direct bili ultrasound ordered (2) Aspiration pneumonia (3) Tracheostomy complication Assessment & Plan: This 84-year-old male with bleeding from tracheostomy noted in facility. Since has had some residue within the suctioning. Trach evaluated bedside no active bleeding noted. No skin issues. Mild granulation tissue. Able to manipulate and function without problem. Deep suctioning performed no active bleeding identified. Potential isolated incident we will continue to monitor over the next 2 to 3 days to ensure no active bleeding or source of bleeding that requires intervention. Thank you allowing me to participate in patient's care There is infiltrate at the left lung base. There may be some pleural fluid. The heart size is normal. There is a tracheostomy. noted some blood with suction trach okay ? bronch as per pulm Impression: Left basilar infiltrate and possible pleural fluid Tracheostomy (4) Tracheostomy malfunction Assessment & Plan: DAILY ESTIMATED NEEDS: Needs based on Critical care, wound/ 76kg abw 22-28 kcals/kg 6429-4041 total kcals 1.25-2 g protein/kg 95-152 g total protein 25-30 mL/kg 7174-9730 total fluid mLs NUTRITION DIAGNOSIS: * Swallowing difficulty R/T respiratory status as evidenced by trach/vent dep, PEG dep, NPO at this time. * Increased kcal/prot/micronutrients needs R/T wound healing as evidenced by pt admitted w/ stage 3 R lateral ankle wound. CURRENT TF: Vital @30 ENTERAL NUTRITION RECOMMENDATIONS: Glucerna 1.5 @ 55ml/hr x 24 hrs to provide 1320ml, 1980kcal, 109g prot, 1002ml free water * As medically appropriate, initiate Glucerna 1.5 @ 25ml/hr x 6hrs * Advance 10ml q 4-6 hrs as tolerated to goal rate * HOB over 30 degrees/ water flush per MD ADDITIONAL RECOMMENDATIONS: * Calibrated bedscale wt * Wound healing: TF rec @ goal provides 100% RDI add Vit C 500mg QD, ZnSO4 220mg QD x 10 days Yuriy BID via PEG w/ TF order * Monitor BGs, need for NISS * Rekha rodriguez, rec repletion Yousuf Samayoa Feb 19, 2020 18:06
--- NOTE | 2020-02-19 19:07 | General Progress Note ---
Subjective Allergies: Coded Allergies: No Known Allergies (Unverified , 02/11/20) Subjective Above note tolerating feeds d/w RN (+) BM Objective Last 24 Hour Vital Signs Date Time Temp Pulse Resp B/P (MAP) Pulse Ox O2 Delivery O2 Flow Rate FiO2 02/19/20 18:09 146/96 02/19/20 17:28 139 20 40 02/19/20 16:00 Mechanical Ventilator 02/19/20 16:00 40 02/19/20 16:00 67 02/19/20 16:00 98.0 67 20 154/74 (100) 100 02/19/20 15:42 74 156/70 02/19/20 15:23 67 13 40 02/19/20 12:52 67 14 40 02/19/20 12:41 149/89 02/19/20 12:00 97.9 75 18 157/86 (109) 100 02/19/20 12:00 69 02/19/20 12:00 40 02/19/20 11:47 Mechanical Ventilator 02/19/20 11:25 68 13 40 02/19/20 09:41 162/95 02/19/20 09:15 65 13 40 02/19/20 08:00 40 02/19/20 08:00 Mechanical Ventilator 02/19/20 07:51 97.7 72 20 162/95 (117) 99 02/19/20 07:48 70 02/19/20 07:22 92 20 40 02/19/20 06:06 166/74 02/19/20 06:00 54 166/94 02/19/20 05:05 70 15 40 02/19/20 04:00 40 02/19/20 04:00 97.3 77 19 170/92 (118) 100 02/19/20 04:00 Mechanical Ventilator 02/19/20 03:39 66 02/19/20 02:39 64 13 40 02/19/20 00:37 68 14 40 02/19/20 00:00 97.0 62 20 147/71 (96) 100 02/19/20 00:00 Mechanical Ventilator 02/19/20 00:00 40 02/19/20 00:00 58 02/18/20 22:34 67 17 40 02/18/20 21:16 81 139/79 02/18/20 20:43 65 16 40 02/18/20 20:00 97.5 61 20 159/76 (103) 98 02/18/20 20:00 Mechanical Ventilator 02/18/20 20:00 40 02/18/20 19:12 68 19 40 Intake and Output 02/18/20 02/19/20 19:00 07:00 Intake Total 1292.416 ml 1145.000 ml Output Total 2700 ml 800 ml Balance -1407.584 ml 345.000 ml Intake Free Water 100 ml 100 ml IV Total 477.416 ml 385.000 ml Tube Feeding 715 ml 660 ml Output Urine Total 2700 ml 800 ml # Bowel Movements 6 Laboratory Tests 02/19/20 11:00: Vancomycin Level Trough 18.1H Height (Feet): 5 Height (Inches): 8.00 Weight (Pounds): 212 Objective Debilitated man NCAT supple Coarse BS RR abd soft, (+) GT OBS Assessment/Plan Status: progressing Assessment/Plan: Assessment - Resp failure - s/p Trach and PEG - nodular liver - possible cirrhosis - elevated bili Recommendation - follow labs - elevated HOB - TF - check hepatitis serologies --> negative Ajit Chappell MD Feb 19, 2020 19:06
--- NOTE | 2020-02-19 19:15 | NUR ---
HAND-OFF: Report given to .CINTHYA ALCARAZ.
--- NOTE | 2020-02-19 19:30 | NUR ---
NURSE NOTES: pt report received from Oral Segura RN pt remains stable. pt is non verbal neuro shah. pt is trach vented, sating at 99% O2, no acute resp abnormalities. pt is on child monitor showing NSR, no other cardiac abnormalities noted. pt bed is low, locked, armed call light within reach, bed rails up times 3. will follow plan of care.
[2020-02-19 20:00] VITALS: BP 161/73
[2020-02-19] MEDS: Dyna-Hex 2% Top Sol 2oz TOPIC SCH (20:51)
--- NOTE | 2020-02-19 21:40 | NUR ---
NURSE NOTES: Assessed pts PICC line, dressing intact. no abnormalities to site. bilateral arms appear dry and weeping.
[2020-02-20] VITALS: BP 173/77
--- NOTE | 2020-02-20 00:30 | NUR ---
NURSE NOTES: pt turned, repositioned and cleaned.
--- NOTE | 2020-02-20 01:25 | NUR ---
NURSE NOTES: assessed pt and pt vent. all vent settins as per Doctor order. AC 12 TV 500 40%FiO2 Peep 5. no resp distress noted.
--- NOTE | 2020-02-20 03:30 | NUR ---
NURSE NOTES: phlebotomists is in pts room drawing lab/ blood.
[2020-02-20 04:00] VITALS: BP 192/80
[2020-02-20 05:21] LABS: ALANINE AMINOTRANSFERASE 15 U/L (12-78); ALBUMIN/GLOBULIN RATIO 0.5 (1.0-2.7); ALKALINE PHOSPHATASE 54 U/L (46-116); ANION GAP 0 mmol/L (5-15); ASPARTATE AMINO TRANSFERASE 38 U/L (15-37); BILIRUBIN,TOTAL 1.6 MG/DL (0.2-1.0); CALCIUM 8.3 MG/DL (8.5-10.1); CARBON DIOXIDE 37 MMOL/L (21-32); CHLORIDE 108 MMOL/L (98-107); CREATININE 0.7 MG/DL (0.55-1.30); PHOSPHORUS 2.1 MG/DL (2.5-4.9); POTASSIUM 3.9 MMOL/L (3.5-5.1); SODIUM 145 MMOL/L (136-145)
[2020-02-20] MEDS: dilTIAZem HCl 60mg tab GT SCH ×3 (05:26→21:10)
[2020-02-20] MEDS: Meropenem 1 GM in NS 55 ML IVPB SCH ×3 (05:27→21:09)
[2020-02-20 05:31] LABS: BILIRUBIN,DIRECT 1.1 MG/DL (0.0-0.3); BLOOD UREA NITROGEN 16 mg/dL (7-18)
--- NOTE | 2020-02-20 06:05 | NUR ---
NURSE NOTES: pts vital sings stable. readjusted pts large blood pressure cuff to R upper arm. BP 143 / 72. HR 65, sating 99% O2. 23 Resp per min.
--- NOTE | 2020-02-20 07:30 | NUR ---
NURSE HAND-OFF REPORT: Important Events on Shift:[NA] Patient Status: [Stable] Diet: [tube feeding as per Doctor order] Pending Orders: [NA] Pending Results/Labs:[NA] Pending MD notification:[NA] Latest Vital Signs: Temperature 98.6 , Pulse 73 , B/P 143 /72 , Respiratory Rate 16 , O2 SAT 99 , Mechanical Ventilator, O2 Flow Rate 5.0 . Vital Sign Comment: [Stable] EKG Rhythm: Sinus Rhythm Rhythm change?: N MD Notified?: José Miguel Barry MD Response: Latest Wall Fall Score: 70 Fall Risk: High Risk Safety Measures: Call light Within Reach, Bed Alarm Zone 3, Side Rails Side Rails x3, Bed position Low and Locked. Fall Precautions: Yellow Socks Yellow Gown Door Sign Patient Fall Education Report given to [Ilene Navarro RN].
--- NOTE | 2020-02-20 07:31 | NUR ---
NURSE NOTES: Pt report received from Chava Guevara RN. Pt is observed laying in bed, sleeping, opens eyes to voice, not following commands. Pt is trach to vent, Portex 7, Vent settings: AC 12, TV 500, FiO2 40%, PEEP 5. O2sat noted to be 99%. Pt is on awake overnight monitor showing NSR, no other cardiac abnormalities noted. Pt noted to have a DELBERT PCC, dressing clean, dry and intact. PIV saline locked- Lt AC #20g and Rt hand #22g. Pt bed is low, locked, armed call light within reach, bed rails up times 3. Will resume plan of care.
[2020-02-20 08:00] VITALS: BP 169/79
--- NOTE | 2020-02-20 08:40 | Nephrology Progress Note ---
Assessment/Plan Problem List: (1) Electrolyte imbalance (2) HTN (hypertension) (3) Aspiration pneumonia (4) Tracheostomy complication (5) Anemia (6) Chronic respiratory failure Assessment Electrolyte imbalance, hypokalemia Normal BUN/creatinine Sepsis leukocytosis tachycardia with left-sided pneumonia Tracheostomy complication with bleeding Anemia Ventilator dependent respiratory failure Atrial fibrillation PEG Plan February 19: Labs reviewed. Phosphorus supplement ordered. Continue per consultants. February 18: No chemistry panel done today. Stable from renal standpoint of view. February 17: Labs reviewed. Abnormal electrolytes addressed. Blood pressure medication adjusted. Continue as is. February 16: Potassium supplement, phosphorus, magnesium supplement as needed. Monitor electrolytes and chemistries. Discontinued IV fluid. Adjust blood pressure medication, Zestril added and 1 dose of Lasix 20 mg given Subjective ROS Limited/Unobtainable: Yes Objective Objective Last 24 Hour Vital Signs Date Time Temp Pulse Resp B/P (MAP) Pulse Ox O2 Delivery O2 Flow Rate FiO2 02/20/20 08:00 40 02/20/20 07:20 71 15 40 02/20/20 05:26 73 143/72 02/20/20 05:09 71 16 40 02/20/20 04:00 40 02/20/20 04:00 63 02/20/20 04:00 Mechanical Ventilator 02/20/20 04:00 98.6 82 18 192/80 (117) 99 02/20/20 02:31 82 19 40 02/20/20 00:30 61 12 40 02/20/20 00:00 98.1 62 18 173/77 (109) 100 02/20/20 00:00 63 02/20/20 00:00 40 02/20/20 00:00 Mechanical Ventilator 02/19/20 22:33 74 19 40 02/19/20 21:06 78 161/73 02/19/20 21:03 66 15 40 02/19/20 20:00 97.9 81 18 161/73 (102) 100 02/19/20 20:00 40 02/19/20 20:00 Mechanical Ventilator 02/19/20 19:15 121 13 40 02/19/20 18:09 146/96 02/19/20 17:28 139 20 40 02/19/20 16:00 Mechanical Ventilator 02/19/20 16:00 40 02/19/20 16:00 67 02/19/20 16:00 98.0 67 20 154/74 (100) 100 02/19/20 15:42 74 156/70 02/19/20 15:23 67 13 40 02/19/20 12:52 67 14 40 02/19/20 12:41 149/89 02/19/20 12:00 97.9 75 18 157/86 (109) 100 02/19/20 12:00 69 02/19/20 12:00 40 02/19/20 11:47 Mechanical Ventilator 02/19/20 11:25 68 13 40 02/19/20 09:41 162/95 02/19/20 09:15 65 13 40 Intake and Output 02/19/20 02/20/20 19:00 07:00 Intake Total 1382.416 ml 1090.000 ml Output Total 800 ml Balance 582.416 ml 1090.000 ml Intake Free Water 300 ml 100 ml IV Total 422.416 ml 385.000 ml Tube Feeding 660 ml 605 ml Output Urine Total 800 ml # Bowel Movements 1 Laboratory Tests 02/19/20 11:00: Vancomycin Level Trough 18.1H 02/20/20 03:20: Sodium Level 145, Potassium Level 3.9, Chloride Level 108H, Carbon Dioxide Level 37H, Anion Gap 0L, Blood Urea Nitrogen 16, Creatinine 0.7, Estimat Glomerular Filtration Rate > 60, Glucose Level 111H, Calcium Level 8.3L, Phosphorus Level 2.1L, Magnesium Level 1.9, Total Bilirubin 1.6H, Direct Bilirubin 1.1H, Aspartate Amino Transf (AST/SGOT) 38H, Alanine Aminotransferase (ALT/SGPT) 15, A lkaline Phosphatase 54, Total Protein 6.3L, Albumin 2.0L, Globulin 4.3, Alb umin/Globulin Ratio 0.5L Height (Feet): 5 Height (Inches): 8.00 Weight (Pounds): 212 General Appearance: no apparent distress EENT: other - Trached and vent Cardiovascular: normal rate Respiratory/Chest: decreased breath sounds Abdomen: distended Tano Longoria MD Feb 20, 2020 08:40
--- NOTE | 2020-02-20 08:49 | Hematology/Onc Progress Note ---
Assessment/Plan Assessment/Plan IMPRESSION/RECS: 1. Leukcytosis with underlying Left lung pneumonia. --> recommend ABX vanc/zosyn-->yvette/vanc --> as per id --> wbc 18-->9 --> smear has been reviewed 2. Anemia due to chronic disease v iron deficiency --> anemia panel ordered --> transfuse prn hgb goal >7 --> occult blood --> hgb 11-->7-->9.1 3. Lactic acidemia. --> likely due to infection -> ivfs started as well 4. Tracheal bleeding. --> per surgery --> vent, improved 5. Chronic tracheostomy. 6. Chronic vent dependence. 7. Chronic G-tube. 8. Previous CVA. 9. Dvt ppx heparin sq Appreciate consultation and Jacinto Barrow Subjective Constitutional: Denies: no symptoms, chills, fever, malaise, weakness, other HEENT: Denies: no symptoms, eye pain, blurred vision, tearing, double vision, ear pain, ear discharge, nose pain, nose congestion, throat pain, throat swelling, mouth pain, mouth swelling, other Cardiovascular: Denies: no symptoms, chest pain, edema, irregular heart rate, lightheadedness, palpitations, syncope, other Respiratory: Denies: no symptoms, cough, shortness of breath, SOB with excertion, SOB at rest, sputum, wheezing, other Genitourinary: Denies: no symptoms, burning, discharge, frequency, flank pain, hematuria, incontinence, pain, urgency, other Neurologic/Psychiatric: Denies: no symptoms, anxiety, depressed, emotional problems, headache, numbness, paresthesia, pre-existing deficit, seizure, tingling, tremors, weakness, other Hematologic/Lymphatic: Denies: no symptoms, anemia, easy bleeding, easy bruising, adenopathy, other Allergies: Coded Allergies: No Known Allergies (Unverified , 02/11/20) Subjective 02/14 on vent, trach, no bleeding, labs are noted, jacinto barrow 02/15 nonverbal, vent and gtube, no major events noted 02/16 nv, meds ntoed, vent, no bleeding, jacinto velásquez 02/17 asleep, on vent, and gtube, labs noted, hgb 9.7 02/18 no events, no bleeding, no new labs 02/19 labs pending, meds noted, no bleeding Objective Objective Current Medications Medications (Trade) Dose Ordered Sig/Natalia Route PRN Reason Start Time Stop Time Status Last Admin Dose Admin Acetaminophen (Tylenol) 650 mg Q4H PRN GT Temp >100.5 02/11/20 13:30 03/12/20 13:29 Acetaminophen (Tylenol) 650 mg Q4H PRN GT Mild Pain (Pain Scale 1-3) 02/11/20 13:45 03/12/20 13:44 Ascorbic Acid (Vitamin C) 500 mg DAILY GT 02/17/20 09:00 03/18/20 08:59 02/19/20 09:40 Chlorhexidine Gluconate (Shirley-Hex 2%) 1 applic DAILY@1999 TOPIC 02/19/20 20:00 05/19/20 19:59 02/19/20 20:51 Diltiazem HCl (Cardizem Tab) 60 mg Q8HR GT 02/16/20 14:00 03/12/20 17:59 02/20/20 05:26 Heparin Sodium (Porcine) (Heparin 5000 units/ml) 5,000 units EVERY 12 HOURS SUBQ 02/12/20 21:00 03/28/20 20:59 02/19/20 20:53 Heparin Sodium/ Sodium Chloride (Heparin 1000 units/500ml Premix) 1,000 unit ONCE PRN IV PICC line placement 02/18/20 12:30 02/20/20 12:29 Hydralazine HCl (Apresoline) 10 mg Q4H PRN IV BP over 160 syst 02/16/20 10:10 05/16/20 10:09 02/19/20 06:06 Levetiracetam (Keppra) 1,500 mg Q12HR GT 02/11/20 21:00 03/12/20 20:59 02/19/20 20:51 Levofloxacin (Levaquin) 750 mg DAILY GT 02/16/20 11:15 02/23/20 11:14 02/19/20 09:42 Lidocaine HCl (Xylocaine 1% 30ml) 30 ml ONCE PRN INJ picc line placement 02/18/20 12:30 02/20/20 12:29 Lisinopril (ZestriL) 10 mg BID GT 02/19/20 10:45 03/18/20 09:44 02/19/20 18:09 Meropenem 1 gm/ Sodium Chloride 55 ml @ 110 mls/hr Q8HR IVPB 02/17/20 14:00 02/22/20 13:59 02/20/20 05:27 Pantoprazole (Protonix) 40 mg DAILY IVP 02/13/20 09:00 03/14/20 08:59 02/19/20 09:40 Potassium Phosphate 250 ml @ 62.5 mls/hr ONCE ONCE IVPB 02/20/20 09:00 02/20/20 12:59 Vancomycin HCl (Vanco pharmacy to dose) 1 ea DAILY PRN MISC Per rx protocol 02/12/20 11:30 03/13/20 11:29 Vancomycin HCl 1 gm/Sodium Chloride 275 ml @ 183.708 mls/hr Q12H IVPB 02/13/20 00:00 02/22/20 23:59 02/19/20 23:38 Zinc Sulfate (Zinc Sulfate) 220 mg DAILY GT 02/17/20 09:00 02/27/20 08:59 02/19/20 09:40 Last 24 Hour Vital Signs Date Time Temp Pulse Resp B/P (MAP) Pulse Ox O2 Delivery O2 Flow Rate FiO2 02/20/20 08:00 40 02/20/20 07:20 71 15 40 02/20/20 05:26 73 143/72 02/20/20 05:09 71 16 40 02/20/20 04:00 40 02/20/20 04:00 63 02/20/20 04:00 Mechanical Ventilator 02/20/20 04:00 98.6 82 18 192/80 (117) 99 02/20/20 02:31 82 19 40 02/20/20 00:30 61 12 40 02/20/20 00:00 98.1 62 18 173/77 (109) 100 02/20/20 00:00 63 02/20/20 00:00 40 02/20/20 00:00 Mechanical Ventilator 02/19/20 22:33 74 19 40 02/19/20 21:06 78 161/73 02/19/20 21:03 66 15 40 02/19/20 20:00 97.9 81 18 161/73 (102) 100 11/12/20 20:00 40 02/19/20 20:00 Mechanical Ventilator 02/19/20 19:15 121 13 40 02/19/20 18:09 146/96 02/19/20 17:28 139 20 40 02/19/20 16:00 Mechanical Ventilator 02/19/20 16:00 40 02/19/20 16:00 67 02/19/20 16:00 98.0 67 20 154/74 (100) 100 02/19/20 15:42 74 156/70 02/19/20 15:23 67 13 40 02/19/20 12:52 67 14 40 02/19/20 12:41 149/89 02/19/20 12:00 97.9 75 18 157/86 (109) 100 02/19/20 12:00 69 02/19/20 12:00 40 02/19/20 11:47 Mechanical Ventilator 02/19/20 11:25 68 13 40 02/19/20 09:41 162/95 02/19/20 09:15 65 13 40 02/19/20 08:00 40 02/19/20 08:00 Mechanical Ventilator 02/19/20 07:51 97.7 72 20 162/95 (117) 99 02/19/20 07:48 70 02/19/20 07:22 92 20 40 02/19/20 06:06 166/74 02/19/20 06:00 54 166/94 02/19/20 05:05 70 15 40 02/19/20 04:00 40 02/19/20 04:00 97.3 77 19 170/92 (118) 100 02/19/20 04:00 Mechanical Ventilator 02/19/20 03:39 66 02/19/20 02:39 64 13 40 02/19/20 00:37 68 14 40 02/19/20 00:00 97.0 62 20 147/71 (96) 100 02/19/20 00:00 Mechanical Ventilator 02/19/20 00:00 40 02/19/20 00:00 58 02/18/20 22:34 67 17 40 02/18/20 21:16 81 139/79 02/18/20 20:43 65 16 40 02/18/20 20:00 97.5 61 20 159/76 (103) 98 02/18/20 20:00 Mechanical Ventilator 02/18/20 20:00 40 02/18/20 19:12 68 19 40 02/18/20 19:01 62 02/18/20 18:39 150/87 02/18/20 17:19 100 22 40 02/18/20 16:00 40 02/18/20 16:00 88 02/18/20 16:00 Mechanical Ventilator 02/18/20 15:51 98.0 86 20 156/86 (109) 97 02/18/20 15:21 87 20 40 02/18/20 14:36 74 157/90 02/18/20 13:09 84 22 40 02/18/20 12:00 98.1 83 19 157/90 (112) 99 02/18/20 12:00 Mechanical Ventilator 02/18/20 12:00 74 02/18/20 12:00 40 02/18/20 11:15 84 20 40 02/18/20 09:17 151/67 Intake and Output 02/19/20 02/20/20 19:00 07:00 Intake Total 1382.416 ml 1090.000 ml Output Total 800 ml Balance 582.416 ml 1090.000 ml Intake Free Water 300 ml 100 ml IV Total 422.416 ml 385.000 ml Tube Feeding 660 ml 605 ml Output Urine Total 800 ml # Bowel Movements 1 Labs Test 02/17/20 11:00 02/18/20 03:25 02/18/20 12:00 02/19/20 11:00 Vancomycin Level Trough 19.9 ug/mL (5.0-12.0) 18.1 ug/mL (5.0-12.0) White Blood Count 7.0 K/UL (4.8-10.8) Red Blood Count 3.06 M/UL (4.70-6.10) Hemoglobin 9.7 G/DL (14.2-18.0) Hematocrit 31.4 % (42.0-52.0) Mean Corpuscular Volume 103 FL (80-99) Mean Corpuscular Hemoglobin 31.5 PG (27.0-31.0) Mean Corpuscular Hemoglobin Concent 30.7 G/DL (32.0-36.0) Red Cell Distribution Width 17.3 % (11.6-14.8) Platelet Count 159 K/UL (150-450) Mean Platelet Volume 6.2 FL (6.5-10.1) Neutrophils (%) (Auto) 65.6 % (45.0-75.0) Lymphocytes (%) (Auto) 8.0 % (20.0-45.0) Monocytes (%) (Auto) 6.3 % (1.0-10.0) Eosinophils (%) (Auto) 19.4 % (0.0-3.0) Basophils (%) (Auto) 0.8 % (0.0-2.0) Sodium Level 142 MMOL/L (136-145) Potassium Level 3.9 MMOL/L (3.5-5.1) Chloride Level 108 MMOL/L (98-107) Carbon Dioxide Level 30 MMOL/L (21-32) Anion Gap 4 mmol/L (5-15) Blood Urea Nitrogen 10 mg/dL (7-18) Creatinine 0.7 MG/DL (0.55-1.30) Estimat Glomerular Filtration Rate > 60 mL/min (>60) Glucose Level 115 MG/DL (74-106) Calcium Level 7.9 MG/DL (8.5-10.1) Phosphorus Level 2.5 MG/DL (2.5-4.9) Magnesium Level 2.0 MG/DL (1.8-2.4) Total Bilirubin 2.2 MG/DL (0.2-1.0) Direct Bilirubin 1.6 MG/DL (0.0-0.3) Aspartate Amino Transf (AST/SGOT) 41 U/L (15-37) Alanine Aminotransferase (ALT/SGPT) 28 U/L (12-78) Alkaline Phosphatase 48 U/L (46-116) Total Protein 6.1 G/DL (6.4-8.2) Albumin 2.1 G/DL (3.4-5.0) Globulin 4.0 g/dL Albumin/Globulin Ratio 0.5 (1.0-2.7) Hepatitis A IgM Antibody Negative (Negative) Hepatitis B Surface Antigen Negative (Negative) Hepatitis B Core IgM Antibody Negative (Negative) Hepatitis C Antibody <0.1 s/co ratio Stool Occult Blood Negative (NEGATIVE) Test 02/20/20 03:20 Sodium Level 145 MMOL/L (136-145) Potassium Level 3.9 MMOL/L (3.5-5.1) Chloride Level 108 MMOL/L (98-107) Carbon Dioxide Level 37 MMOL/L (21-32) Anion Gap 0 mmol/L (5-15) Blood Urea Nitrogen 16 mg/dL (7-18) Creatinine 0.7 MG/DL (0.55-1.30) Estimat Glomerular Filtration Rate > 60 mL/min (>60) Glucose Level 111 MG/DL (74-106) Calcium Level 8.3 MG/DL (8.5-10.1) Phosphorus Level 2.1 MG/DL (2.5-4.9) Magnesium Level 1.9 MG/DL (1.8-2.4) Total Bilirubin 1.6 MG/DL (0.2-1.0) Direct Bilirubin 1.1 MG/DL (0.0-0.3) Aspartate Amino Transf (AST/SGOT) 38 U/L (15-37) Alanine Aminotransferase (ALT/SGPT) 15 U/L (12-78) Alkaline Phosphatase 54 U/L (46-116) Total Protein 6.3 G/DL (6.4-8.2) Albumin 2.0 G/DL (3.4-5.0) Globulin 4.3 g/dL Albumin/Globulin Ratio 0.5 (1.0-2.7) Height (Feet): 5 Height (Inches): 8.00 Weight (Pounds): 212 Objective Physical Exam General appearance: alert, no distress, appears stated age HEENT: Normocephalic, Teeth and gums normal trach + Lungs: clear to auscultation bilaterally Heart: regular rate and rhythm, S1, S2 normal, no murmur, click, rub or gallop Abdomen: soft, non-tender. Bowel sounds normal. No masses, ++ feeding tube Extremities: extremities normal, atraumatic, no cyanosis or edema Pulses: 2+ and symmetric Skin: Skin color, texture, turgor normal. No rashes or lesions Neurologic: Grossly normal Bryce Edgar MD Feb 20, 2020 08:49
[2020-02-20] MEDS: Heparin 5000 units/ml inj SUBQ SCH ×2 (09:00→20:05)
[2020-02-20] MEDS ORDERED: Potassium Phosphate 15mm/250ml 250 ML IVPB ONE (09:00)
--- NOTE | 2020-02-20 09:27 | Pulmonology Progress Note ---
Subjective ROS Limited/Unobtainable: Yes Interval Events: None new Constitutional: Denies: fever HEENT: Repors: no symptoms Respiratory: Reports: no symptoms Cardiovascular: Reports: no symptoms Gastrointestinal/Abdominal: Reports: other - NPO Allergies: Coded Allergies: No Known Allergies (Unverified , 02/11/20) Objective Last 24 Hour Vital Signs Date Time Temp Pulse Resp B/P (MAP) Pulse Ox O2 Delivery O2 Flow Rate FiO2 02/20/20 08:00 40 02/20/20 07:20 71 15 40 02/20/20 05:26 73 143/72 02/20/20 05:09 71 16 40 02/20/20 04:00 40 02/20/20 04:00 63 02/20/20 04:00 Mechanical Ventilator 02/20/20 04:00 98.6 82 18 192/80 (117) 99 02/20/20 02:31 82 19 40 02/20/20 00:30 61 12 40 02/20/20 00:00 98.1 62 18 173/77 (109) 100 02/20/20 00:00 63 02/20/20 00:00 40 02/20/20 00:00 Mechanical Ventilator 02/19/20 22:33 74 19 40 02/19/20 21:06 78 161/73 02/19/20 21:03 66 15 40 02/19/20 20:00 97.9 81 18 161/73 (102) 100 02/19/20 20:00 40 02/19/20 20:00 Mechanical Ventilator 02/19/20 19:15 121 13 40 02/19/20 18:09 146/96 02/19/20 17:28 139 20 40 02/19/20 16:00 Mechanical Ventilator 02/19/20 16:00 40 02/19/20 16:00 67 02/19/20 16:00 98.0 67 20 154/74 (100) 100 02/19/20 15:42 74 156/70 02/19/20 15:23 67 13 40 02/19/20 12:52 67 14 40 02/19/20 12:41 149/89 02/19/20 12:00 97.9 75 18 157/86 (109) 100 02/19/20 12:00 69 02/19/20 12:00 40 02/19/20 11:47 Mechanical Ventilator 02/19/20 11:25 68 13 40 02/19/20 09:41 162/95 Intake and Output 02/19/20 02/20/20 19:00 07:00 Intake Total 1382.416 ml 1090.000 ml Output Total 800 ml Balance 582.416 ml 1090.000 ml Intake Free Water 300 ml 100 ml IV Total 422.416 ml 385.000 ml Tube Feeding 660 ml 605 ml Output Urine Total 800 ml # Bowel Movements 1 General Appearance: no acute distress HEENT: normocephalic Respiratory: chest wall non-tender, lungs clear Cardiovascular: normal peripheral pulses Abdomen: normal bowel sounds Laboratory Tests 02/19/20 11:00: Vancomycin Level Trough 18.1H 02/20/20 03:20: Sodium Level 145, Potassium Level 3.9, Chloride Level 108H, Carbon Dioxide Level 37H, Anion Gap 0L, Blood Urea Nitrogen 16, Creatinine 0.7, Estimat Glomerular Filtration Rate > 60, Glucose Level 111H, Calcium Level 8.3L, Phosphorus Level 2.1L, Magnesium Level 1.9, Total Bilirubin 1.6H, Direct Bilirubin 1.1H, Aspartate Amino Transf (AST/SGOT) 38H, Alanine Aminotransferase (ALT/SGPT) 15, Alkaline Phosphatase 54, Total Protein 6.3L, Albumin 2.0L, Globulin 4.3, Albumin/Globulin Ratio 0.5L Current Medications Medications (Trade) Dose Ordered Sig/Natalia Route PRN Reason Start Time Stop Time Status Last Admin Dose Admin Acetaminophen (Tylenol) 650 mg Q4H PRN GT Temp >100.5 02/11/20 13:30 03/12/20 13:29 Acetaminophen (Tylenol) 650 mg Q4H PRN GT Mild Pain (Pain Scale 1-3) 02/11/20 13:45 03/12/20 13:44 Ascorbic Acid (Vitamin C) 500 mg DAILY GT 02/17/20 09:00 03/18/20 08:59 02/19/20 09:40 Chlorhexidine Gluconate (Shirley-Hex 2%) 1 applic DAILY@1999 TOPIC 02/19/20 20:00 05/19/20 19:59 02/19/20 20:51 Diltiazem HCl (Cardizem Tab) 60 mg Q8HR GT 02/16/20 14:00 03/12/20 17:59 02/20/20 05:26 Heparin Sodium (Porcine) (Heparin 5000 units/ml) 5,000 units EVERY 12 HOURS SUBQ 02/12/20 21:00 03/28/20 20:59 02/19/20 20:53 Heparin Sodium/ Sodium Chloride (Heparin 1000 units/500ml Premix) 1,000 unit ONCE PRN IV PICC line placement 02/18/20 12:30 02/20/20 12:29 Hydralazine HCl (Apresoline) 10 mg Q4H PRN IV BP over 160 syst 02/16/20 10:10 05/16/20 10:09 02/19/20 06:06 Levetiracetam (Keppra) 1,500 mg Q12HR GT 02/11/20 21:00 03/12/20 20:59 02/19/20 20:51 Levofloxacin (Levaquin) 750 mg DAILY GT 02/16/20 11:15 02/23/20 11:14 02/19/20 09:42 Lidocaine HCl (Xylocaine 1% 30ml) 30 ml ONCE PRN INJ picc line placement 02/18/20 12:30 02/20/20 12:29 Lisinopril (ZestriL) 10 mg BID GT 02/19/20 10:45 03/18/20 09:44 02/19/20 18:09 Meropenem 1 gm/ Sodium Chloride 55 ml @ 110 mls/hr Q8HR IVPB 02/17/20 14:00 02/22/20 13:59 02/20/20 05:27 Pantoprazole (Protonix) 40 mg DAILY IVP 02/13/20 09:00 03/14/20 08:59 02/19/20 09:40 Potassium Phosphate 250 ml @ 62.5 mls/hr ONCE ONCE IVPB 02/20/20 09:00 02/20/20 12:59 Vancomycin HCl (Vanco pharmacy to dose) 1 ea DAILY PRN MISC Per rx protocol 02/12/20 11:30 03/13/20 11:29 Vancomycin HCl 1 gm/Sodium Chloride 275 ml @ 183.708 mls/hr Q12H IVPB 02/13/20 00:00 02/22/20 23:59 02/19/20 23:38 Zinc Sulfate (Zinc Sulfate) 220 mg DAILY GT 02/17/20 09:00 02/27/20 08:59 02/19/20 09:40 Assessment/Plan Assessment/Plan IMPRESSION: 1. Bilateral lung pneumonia (HCAP) with pseudomonas/stenotrophomonas 2. Leukocytosis. Resolved 3. Lactic acidemia. 4. Endo-tracheal bleeding/hemoptysis... Hgb stable post-transfusion 5. Chronic tracheostomy. 6. Chronic vent dependence. 7. Chronic G-tube. 8. Previous CVA. DISCUSSION: Continue broad-spectrum antibiotics. Oxygen and pulmonary hygiene. Tracheostomy site is clean CT chest confirms dense bilateral pneumonia Micro - stentotrophomonas/pseudomonas I will follow carefully. DVT and GI prophylaxes. PICC line in place OK to dc back to SNF Will need IV abx (Meropenem) Kandy Golden Omar Syed MD Feb 20, 2020 09:27
[2020-02-20] MEDS: Lisinopril 10mg tab GT SCH ×2 (09:32→18:12)
[2020-02-20] MEDS: Levofloxacin 750mg tab GT SCH (09:32)
[2020-02-20] MEDS: Zinc Sulfate 220mg GT SCH (09:32)
[2020-02-20] MEDS: Ascorbic Acid 500mg tab GT SCH (09:32)
[2020-02-20] MEDS: levETIRAcetam 500mg/5ml Liquid GT SCH ×2 (09:32→20:05)
[2020-02-20] MEDS: Pantoprazole Inj IVP SCH (09:33)
--- NOTE | 2020-02-20 10:10 | NUR ---
NURSE NOTES: Pt turned and repositioned. Oral care done. Pt received all AM medications. Gtube running Glucerna 1.5 @ 55m/hr. No residual noted. Flushed with 100mL water.
[2020-02-20] MEDS: Vancomycin 1 GM in NS 275 ML IVPB SCH ×2 (11:22→23:02)
[2020-02-20 12:00] VITALS: BP 155/65
--- NOTE | 2020-02-20 12:40 | NUR ---
DISCHARGE PLANNING: NOTE CLINICALS FAXED TO [facility] AT [facility] DC ORDER REQUESTED FROM MD ESCOBAR Addendum: 02/20/20 at 1524 by Nataliia Zuñiga CM [facility] CONFIRMED SHE RECEIVED CLINICALS SHE WILL NOT SNF AUTH FOR THIS PT. [facility] CALLED IN REQUEST TO [phone] CLINICALS FAXED TO MEDICAL REQUESTING AUTH F: [phone]
--- NOTE | 2020-02-20 13:18 | Cardiac Electrophysiology PN ---
Assessment/Plan Assessment/Plan 1. Atrial fibrillation with rapid ventricular response. On Cardizem 60 mg tid Off anticoagulation for tracheal bleed. In SR with first degree AVB 2. Accelerated hypertension. On Cardizem 60 tid and Lisinopril 10 bid 3. Bleeding from the trach site. Further evaluation by Surgery. S/P PRBC 4. Ventilator-respiratory failure. Further evaluation by Dr. Otero. 5. Dysphagia, status post PEG placement. 6. Elevated white count and sepsis, on IV antibiotic. DW RN Subjective Subjective Fio2 40% and PEEP 5. .No more tracheal bleed Objective Last 24 Hour Vital Signs Date Time Temp Pulse Resp B/P (MAP) Pulse Ox O2 Delivery O2 Flow Rate FiO2 02/20/20 12:00 Mechanical Ventilator 02/20/20 12:00 97.9 75 17 155/65 (95) 100 02/20/20 12:00 72 02/20/20 12:00 40 02/20/20 11:10 73 14 40 02/20/20 09:32 169/79 02/20/20 09:10 83 17 40 02/20/20 08:00 40 02/20/20 08:00 69 02/20/20 08:00 Mechanical Ventilator 02/20/20 08:00 97.9 75 18 169/79 (109) 100 02/20/20 07:20 71 15 40 02/20/20 05:26 73 143/72 02/20/20 05:09 71 16 40 02/20/20 04:00 40 02/20/20 04:00 63 02/20/20 04:00 Mechanical Ventilator 02/20/20 04:00 98.6 82 18 192/80 (117) 99 02/20/20 02:31 82 19 40 02/20/20 00:30 61 12 40 02/20/20 00:00 98.1 62 18 173/77 (109) 100 02/20/20 00:00 63 02/20/20 00:00 40 02/20/20 00:00 Mechanical Ventilator 02/19/20 22:33 74 19 40 02/19/20 21:06 78 161/73 02/19/20 21:03 66 15 40 02/19/20 20:00 97.9 81 18 161/73 (102) 100 02/19/20 20:00 40 02/19/20 20:00 Mechanical Ventilator 02/19/20 19:15 121 13 40 02/19/20 18:09 146/96 02/19/20 17:28 139 20 40 02/19/20 16:00 Mechanical Ventilator 02/19/20 16:00 40 02/19/20 16:00 67 02/19/20 16:00 98.0 67 20 154/74 (100) 100 02/19/20 15:42 74 156/70 02/19/20 15:23 67 13 40 Intake and Output 02/19/20 02/20/20 19:00 07:00 Intake Total 1382.416 ml 1145.000 ml Output Total 800 ml Balance 582.416 ml 1145.000 ml Intake Free Water 300 ml 100 ml IV Total 422.416 ml 385.000 ml Tube Feeding 660 ml 660 ml Output Urine Total 800 ml # Bowel Movements 1 Laboratory Tests Test 02/20/20 03:20 Sodium Level 145 MMOL/L (136-145) Potassium Level 3.9 MMOL/L (3.5-5.1) Chloride Level 108 MMOL/L (98-107) H Carbon Dioxide Level 37 MMOL/L (21-32) H Anion Gap 0 mmol/L (5-15) L Blood Urea Nitrogen 16 mg/dL (7-18) Creatinine 0.7 MG/DL (0.55-1.30) Estimat Glomerular Filtration Rate > 60 mL/min (>60) Glucose Level 111 MG/DL (74-106) H Calcium Level 8.3 MG/DL (8.5-10.1) L Phosphorus Level 2.1 MG/DL (2.5-4.9) L Magnesium Level 1.9 MG/DL (1.8-2.4) Total Bilirubin 1.6 MG/DL (0.2-1.0) H Direct Bilirubin 1.1 MG/DL (0.0-0.3) H Aspartate Amino Transf (AST/SGOT) 38 U/L (15-37) H Alanine Aminotransferase (ALT/SGPT) 15 U/L (12-78) Alkaline Phosphatase 54 U/L (46-116) Total Protein 6.3 G/DL (6.4-8.2) L Albumin 2.0 G/DL (3.4-5.0) L Globulin 4.3 g/dL Albumin/Globulin Ratio 0.5 (1.0-2.7) L Objective HEAD AND NECK: No JVD. Status post tracheostomy LUNGS: Coarse rhonchi. CARDIOVASCULAR: Shows irregular S1 and S2 with no gallop. ABDOMEN: Soft. Status post G-tube. EXTREMITIES: No pitting edema. Liang Barry MD Feb 20, 2020 13:18
--- NOTE | 2020-02-20 14:22 | Surgery Progress Note ---
Surgery Progress Note Subjective Symptoms: improved, tolerating diet, passing flatus Additional Comments lft's improved no n/v Objective Last 24 Hour Vital Signs Date Time Temp Pulse Resp B/P (MAP) Pulse Ox O2 Delivery O2 Flow Rate FiO2 02/20/20 13:00 80 15 40 02/20/20 12:00 Mechanical Ventilator 02/20/20 12:00 97.9 75 17 155/65 (95) 100 02/20/20 12:00 72 02/20/20 12:00 40 02/20/20 11:10 73 14 40 02/20/20 09:32 169/79 02/20/20 09:10 83 17 40 02/20/20 08:00 40 02/20/20 08:00 69 02/20/20 08:00 Mechanical Ventilator 02/20/20 08:00 97.9 75 18 169/79 (109) 100 02/20/20 07:20 71 15 40 02/20/20 05:26 73 143/72 02/20/20 05:09 71 16 40 02/20/20 04:00 40 02/20/20 04:00 63 02/20/20 04:00 Mechanical Ventilator 02/20/20 04:00 98.6 82 18 192/80 (117) 99 02/20/20 02:31 82 19 40 02/20/20 00:30 61 12 40 02/20/20 00:00 98.1 62 18 173/77 (109) 100 02/20/20 00:00 63 02/20/20 00:00 40 02/20/20 00:00 Mechanical Ventilator 02/19/20 22:33 74 19 40 02/19/20 21:06 78 161/73 02/19/20 21:03 66 15 40 02/19/20 20:00 97.9 81 18 161/73 (102) 100 02/19/20 20:00 40 02/19/20 20:00 Mechanical Ventilator 02/19/20 19:15 121 13 40 02/19/20 18:09 146/96 02/19/20 17:28 139 20 40 02/19/20 16:00 Mechanical Ventilator 02/19/20 16:00 40 02/19/20 16:00 67 02/19/20 16:00 98.0 67 20 154/74 (100) 100 02/19/20 15:42 74 156/70 02/19/20 15:23 67 13 40 I&O Intake and Output 02/19/20 02/20/20 19:00 07:00 Intake Total 1382.416 ml 1145.000 ml Output Total 800 ml Balance 582.416 ml 1145.000 ml Intake Free Water 300 ml 100 ml IV Total 422.416 ml 385.000 ml Tube Feeding 660 ml 660 ml Output Urine Total 800 ml # Bowel Movements 1 Dressing: saturated Cardiovascular: RSR Respiratory: decreased breath sounds Abdomen: non-tender, present bowel sounds Extremities: no edema, no tenderness, no cyanosis Laboratory Tests Test 02/20/20 03:20 Sodium Level 145 MMOL/L (136-145) Potassium Level 3.9 MMOL/L (3.5-5.1) Chloride Level 108 MMOL/L (98-107) H Carbon Dioxide Level 37 MMOL/L (21-32) H Anion Gap 0 mmol/L (5-15) L Blood Urea Nitrogen 16 mg/dL (7-18) Creatinine 0.7 MG/DL (0.55-1.30) Estimat Glomerular Filtration Rate > 60 mL/min (>60) Glucose Level 111 MG/DL (74-106) H Calcium Level 8.3 MG/DL (8.5-10.1) L Phosphorus Level 2.1 MG/DL (2.5-4.9) L Magnesium Level 1.9 MG/DL (1.8-2.4) Total Bilirubin 1.6 MG/DL (0.2-1.0) H Direct Bilirubin 1.1 MG/DL (0.0-0.3) H Aspartate Amino Transf (AST/SGOT) 38 U/L (15-37) H Alanine Aminotransferase (ALT/SGPT) 15 U/L (12-78) Alkaline Phosphatase 54 U/L (46-116) Total Protein 6.3 G/DL (6.4-8.2) L Albumin 2.0 G/DL (3.4-5.0) L Globulin 4.3 g/dL Albumin/Globulin Ratio 0.5 (1.0-2.7) L Plan Problems: (1) Sepsis Assessment & Plan: H&H has been stable since transfusion. Still with bloody aspirate with deep suctioning. No bleeding around tracheostomy site. LFTs remain elevated T bili direct bili ultrasound ordered (2) Aspiration pneumonia (3) Tracheostomy complication Assessment & Plan: This 84-year-old male with bleeding from tracheostomy noted in facility. Since has had some residue within the suctioning. Trach evaluated bedside no active bleeding noted. No skin issues. Mild granulation tissue. Able to manipulate and function without problem. Deep suctioning performed no active bleeding identified. Potential isolated incident we will continue to monitor over the next 2 to 3 days to ensure no active bleeding or source of bleeding that requires intervention. Thank you allowing me to participate in patient's care There is infiltrate at the left lung base. There may be some pleural fluid. The heart size is normal. There is a tracheostomy. noted some blood with suction trach okay ? bronch as per pulm Impression: Left basilar infiltrate and possible pleural fluid Tracheostomy (4) Tracheostomy malfunction Assessment & Plan: DAILY ESTIMATED NEEDS: Needs based on Critical care, wound/ 76kg abw 22-28 kcals/kg 6790-2989 total kcals 1.25-2 g protein/kg 95-152 g total protein 25-30 mL/kg 0080-8479 total fluid mLs NUTRITION DIAGNOSIS: * Swallowing difficulty R/T respiratory status as evidenced by trach/vent dep, PEG dep, NPO at this time. * Increased kcal/prot/micronutrients needs R/T wound healing as evidenced by pt admitted w/ stage 3 R lateral ankle wound. CURRENT TF: Vital @30 ENTERAL NUTRITION RECOMMENDATIONS: Glucerna 1.5 @ 55ml/hr x 24 hrs to provide 1320ml, 1980kcal, 109g prot, 1002ml free water * As medically appropriate, initiate Glucerna 1.5 @ 25ml/hr x 6hrs * Advance 10ml q 4-6 hrs as tolerated to goal rate * HOB over 30 degrees/ water flush per MD ADDITIONAL RECOMMENDATIONS: * Calibrated bedscale wt * Wound healing: TF rec @ goal provides 100% RDI add Vit C 500mg QD, ZnSO4 220mg QD x 10 days Yuriy BID via PEG w/ TF order * Monitor BGs, need for NISS * K low, rec repletion Yousuf Samayoa Feb 20, 2020 14:22
--- NOTE | 2020-02-20 14:30 | NUR ---
NURSE NOTES: Pt turned and repositioned. Oral care done. Pt suctioned. No distress noted.
--- NOTE | 2020-02-20 14:35 | Infectious Diseases Prog Note ---
Assessment/Plan Assessment/Plan IMPRESSION: Sepsis with Staph aureus (MRSA) Pseudomonas, E coli & Steotrophomonas pneumonia, Tracheostomy complication with bleeding. 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 Subjective ROS Limited/Unobtainable: Yes Constitutional: Denies: fever Allergies: Coded Allergies: No Known Allergies (Unverified , 02/11/20) Objective Last 24 Hour Vital Signs Date Time Temp Pulse Resp B/P (MAP) Pulse Ox O2 Delivery O2 Flow Rate FiO2 02/20/20 14:29 77 162/89 02/20/20 13:00 80 15 40 02/20/20 12:00 Mechanical Ventilator 02/20/20 12:00 97.9 75 17 155/65 (95) 100 02/20/20 12:00 72 02/20/20 12:00 40 02/20/20 11:10 73 14 40 02/20/20 09:32 169/79 02/20/20 09:10 83 17 40 02/20/20 08:00 40 02/20/20 08:00 69 02/20/20 08:00 Mechanical Ventilator 02/20/20 08:00 97.9 75 18 169/79 (109) 100 02/20/20 07:20 71 15 40 02/20/20 05:26 73 143/72 02/20/20 05:09 71 16 40 02/20/20 04:00 40 02/20/20 04:00 63 02/20/20 04:00 Mechanical Ventilator 02/20/20 04:00 98.6 82 18 192/80 (117) 99 02/20/20 02:31 82 19 40 02/20/20 00:30 61 12 40 02/20/20 00:00 98.1 62 18 173/77 (109) 100 02/20/20 00:00 63 02/20/20 00:00 40 02/20/20 00:00 Mechanical Ventilator 02/19/20 22:33 74 19 40 02/19/20 21:06 78 161/73 02/19/20 21:03 66 15 40 02/19/20 20:00 97.9 81 18 161/73 (102) 100 02/19/20 20:00 40 02/19/20 20:00 Mechanical Ventilator 02/19/20 19:15 121 13 40 02/19/20 18:09 146/96 02/19/20 17:28 139 20 40 02/19/20 16:00 Mechanical Ventilator 02/19/20 16:00 40 02/19/20 16:00 67 02/19/20 16:00 98.0 67 20 154/74 (100) 100 02/19/20 15:42 74 156/70 02/19/20 15:23 67 13 40 Height (Feet): 5 Height (Inches): 8.00 Weight (Pounds): 212 HEENT: status post trach Respiratory/Chest: lungs clear, other - on ventilator Cardiovascular: normal rate Abdomen: soft, non tender, other - GT feeding Extremities: other - edema Neurologic/Psychiatric: aphasia Laboratory Tests Test 02/20/20 03:20 Sodium Level 145 MMOL/L (136-145) Potassium Level 3.9 MMOL/L (3.5-5.1) Chloride Level 108 MMOL/L (98-107) H Carbon Dioxide Level 37 MMOL/L (21-32) H Anion Gap 0 mmol/L (5-15) L Blood Urea Nitrogen 16 mg/dL (7-18) Creatinine 0.7 MG/DL (0.55-1.30) Estimat Glomerular Filtration Rate > 60 mL/min (>60) Glucose Level 111 MG/DL (74-106) H Calcium Level 8.3 MG/DL (8.5-10.1) L Phosphorus Level 2.1 MG/DL (2.5-4.9) L Magnesium Level 1.9 MG/DL (1.8-2.4) Total Bilirubin 1.6 MG/DL (0.2-1.0) H Direct Bilirubin 1.1 MG/DL (0.0-0.3) H Aspartate Amino Transf (AST/SGOT) 38 U/L (15-37) H Alanine Aminotransferase (ALT/SGPT) 15 U/L (12-78) Alkaline Phosphatase 54 U/L (46-116) Total Protein 6.3 G/DL (6.4-8.2) L Albumin 2.0 G/DL (3.4-5.0) L Globulin 4.3 g/dL Albumin/Globulin Ratio 0.5 (1.0-2.7) L Current Medications Medications (Trade) Dose Ordered Sig/Natalia Route PRN Reason Start Time Stop Time Status Last Admin Dose Admin Acetaminophen (Tylenol) 650 mg Q4H PRN GT Temp >100.5 02/11/20 13:30 03/12/20 13:29 Acetaminophen (Tylenol) 650 mg Q4H PRN GT Mild Pain (Pain Scale 1-3) 02/11/20 13:45 03/12/20 13:44 Ascorbic Acid (Vitamin C) 500 mg DAILY GT 02/17/20 09:00 03/18/20 08:59 02/20/20 09:32 Chlorhexidine Gluconate (Shirley-Hex 2%) 1 applic DAILY@2000 TOPIC 02/19/20 20:00 05/19/20 19:59 02/19/20 20:51 Diltiazem HCl (Cardizem Tab) 60 mg Q8HR GT 02/16/20 14:00 03/12/20 17:59 02/20/20 14:29 Heparin Sodium (Porcine) (Heparin 5000 units/ml) 5,000 units EVERY 12 HOURS SUBQ 02/12/20 21:00 03/28/20 20:59 02/19/20 20:53 Hydralazine HCl (Apresoline) 10 mg Q4H PRN IV BP over 160 syst 02/16/20 10:10 05/16/20 10:09 02/19/20 06:06 Levetiracetam (Keppra) 1,500 mg Q12HR GT 02/11/20 21:00 03/12/20 20:59 02/20/20 09:32 Levofloxacin (Levaquin) 750 mg DAILY GT 02/16/20 11:15 02/23/20 11:14 02/20/20 09:32 Lisinopril (ZestriL) 10 mg BID GT 02/19/20 10:45 03/18/20 09:44 02/20/20 09:32 Meropenem 1 gm/ Sodium Chloride 55 ml @ 110 mls/hr Q8HR IVPB 02/17/20 14:00 02/22/20 13:59 02/20/20 14:29 Pantoprazole (Protonix) 40 mg DAILY IVP 02/13/20 09:00 03/14/20 08:59 02/20/20 09:33 Vancomycin HCl (Vanco pharmacy to dose) 1 ea DAILY PRN MISC Per rx protocol 02/12/20 11:30 03/13/20 11:29 Vancomycin HCl 1 gm/Sodium Chloride 275 ml @ 183.708 mls/hr Q12H IVPB 02/13/20 00:00 02/22/20 23:59 02/20/20 11:22 Zinc Sulfate (Zinc Sulfate) 220 mg DAILY GT 02/17/20 09:00 02/27/20 08:59 02/20/20 09:32 Ulises Vasquez MD Feb 20, 2020 14:35
--- NOTE | 2020-02-20 15:29 | NUR ---
CASE MANAGEMENT: REVIEW 02/20/2020 SI;SEPSIS. VS: T 97.9 HR 75 RR 17 B/P 155/65 SATS 100% ON MECH VENT FIO2 40 LABS: CL 108 CO2 37 GLU 111 CA 8.3 PHOS 2.1 TBILI 1.6 DBILI 1.1 AST 38 IS:LISINOPRIL GT BID LEVAQUIN GT QD VANCO IV Q12H KEPPRA GT Q12H MEROPENEM IV Q8H SDU DCP: JOSE ALEJANDRO WORLEY
--- NOTE | 2020-02-20 15:32 | NUR ---
INSURANCE CLINICALS FAXED TO PLEASE FAX MEDICAL REVIEWS TO [facility] FAX [phone]
[2020-02-20 16:00] VITALS: BP 118/82
--- NOTE | 2020-02-20 17:00 | NUR ---
NURSE NOTES: Pt's daughter made aware of discharge arrangements, however, She asked to keep the patient until at least tomorrow d/t patient's son coming to visit patient from [place]. Dr Latham made aware and was in agreement. manager hris, Nataliia, also informed of plan change.
--- NOTE | 2020-02-20 17:41 | NUR ---
CASE MANAGEMENT: NOTE [facility] REQUESTED AUTH FROM [facility] AT [facility] T: [phone] [facility] CREATED CASE ON BEHALF OF [facility]# [id number]. CALL PLACED TO [facility] WHO IS GONE FOR THE DAY. [facility] WILL BE APPROVING SNF DOES NOT HAVE AN AFTER HOURS # AUTH TO BE PROVIDED ON SUNDAY SUPERIOR AWARE.
--- NOTE | 2020-02-20 18:00 | NUR ---
NURSE NOTES: Pt fully cleaned and linens changed. Pt had a large brown loose BM. Hematuria noted in urine in urometer.
--- NOTE | 2020-02-20 19:17 | NUR ---
NURSE HAND-OFF REPORT: Important Events on Shift: Patient Status: Stable Diet: Glucerna 1.5 @55mLl/hr Pending Orders: N/A Pending Results/Labs: Pending MD notification: Latest Vital Signs: Temperature 98.4 , Pulse 66 , B/P 184 /91 , Respiratory Rate 14 , O2 SAT 100 , Mechanical Ventilator, FiO2 40% . Vital Sign Comment: EKG Rhythm: Sinus Rhythm Rhythm change?: N MD Notified?: MD Response: Latest Wall Fall Score: 70 Fall Risk: High Risk Safety Measures: Call light Within Reach, Bed Alarm Zone 3, Side Rails Side Rails x3, Bed position Low and Locked. Fall Precautions: Yellow Socks Yellow Gown Door Sign Patient Fall Education Report given to LISSA Martinez.
--- NOTE | 2020-02-20 19:18 | NUR ---
NURSE NOTES: Patient received from LISSA Odom. patient asleep arousable to shaking opens eyes but nonverbal with Portex 7 on ventilator AC 12 TV 500 FiO2 40% PEEP 5. BP146/79 HR64 NSR on monitor. Left AC #20 and Right Hand #22 SL. Gtube running Glucerna 1.5 @55ml/hr. Johnson catheter draining light jacque urine with red sediment noted. BUE weeping serosanguinous edema, and BLE pitting +3 edema, right malleolus DTPI scrotal swelling and excoriation noted. Patient repositioned and oral care provided.
--- NOTE | 2020-02-20 19:35 | General Progress Note ---
Subjective ROS Limited/Unobtainable: Yes Allergies: Coded Allergies: No Known Allergies (Unverified , 02/11/20) Objective Last 24 Hour Vital Signs Date Time Temp Pulse Resp B/P (MAP) Pulse Ox O2 Delivery O2 Flow Rate FiO2 02/20/20 18:40 66 14 40 02/20/20 18:12 184/91 02/20/20 17:20 65 14 40 02/20/20 16:00 98.4 82 18 118/82 (94) 100 02/20/20 16:00 40 02/20/20 16:00 Mechanical Ventilator 02/20/20 16:00 64 02/20/20 15:20 79 15 40 02/20/20 14:29 77 162/89 02/20/20 13:00 80 15 40 02/20/20 12:00 Mechanical Ventilator 02/20/20 12:00 97.9 75 17 155/65 (95) 100 02/20/20 12:00 72 02/20/20 12:00 40 02/20/20 11:10 73 14 40 02/20/20 09:32 169/79 02/20/20 09:10 83 17 40 02/20/20 08:00 40 02/20/20 08:00 69 02/20/20 08:00 Mechanical Ventilator 02/20/20 08:00 97.9 75 18 169/79 (109) 100 02/20/20 07:20 71 15 40 02/20/20 05:26 73 143/72 02/20/20 05:09 71 16 40 02/20/20 04:00 40 02/20/20 04:00 63 02/20/20 04:00 Mechanical Ventilator 02/20/20 04:00 98.6 82 18 192/80 (117) 99 02/20/20 02:31 82 19 40 02/20/20 00:30 61 12 40 02/20/20 00:00 98.1 62 18 173/77 (109) 100 02/20/20 00:00 63 02/20/20 00:00 40 02/20/20 00:00 Mechanical Ventilator 02/19/20 22:33 74 19 40 02/19/20 21:06 78 161/73 02/19/20 21:03 66 15 40 02/19/20 20:00 97.9 81 18 161/73 (102) 100 02/19/20 20:00 40 02/19/20 20:00 Mechanical Ventilator Intake and Output 02/19/20 02/20/20 19:00 07:00 Intake Total 1382.416 ml 1145.000 ml Output Total 800 ml Balance 582.416 ml 1145.000 ml Intake Free Water 300 ml 100 ml IV Total 422.416 ml 385.000 ml Tube Feeding 660 ml 660 ml Output Urine Total 800 ml # Bowel Movements 1 Laboratory Tests 02/20/20 03:20: Sodium Level 145, Potassium Level 3.9, Chloride Level 108H, Carbon Dioxide Level 37H, Anion Gap 0L, Blood Urea Nitrogen 16, Creatinine 0.7, Estimat Glomerular Filtration Rate > 60, Glucose Level 111H, Calcium Level 8.3L, Phosphorus Level 2.1L, Magnesium Level 1.9, Total Bilirubin 1.6H, Direct Bilirubin 1.1H, Aspartate Amino Transf (AST/SGOT) 38H, Alanine Aminotransferase (ALT/SGPT) 15, Alkaline Phosphatase 54, Total Protein 6.3L, Albumin 2.0L, Globulin 4.3, Albumin/Globulin Ratio 0.5L Height (Feet): 5 Height (Inches): 8.00 Weight (Pounds): 212 Assessment/Plan Problem List: (1) Sepsis ICD Codes: A41.9 - Sepsis, unspecified organism SNOMED: 27059974 Qualifiers: Qualified Codes: A41.9 - Sepsis, unspecified organism; R65.20 - Severe sepsis without septic shock; J96.01 - Acute respiratory failure with hypoxia (2) Aspiration pneumonia ICD Codes: J69.0 - Pneumonitis due to inhalation of food and vomit SNOMED: 939404070 Qualifiers: Qualified Codes: J69.0 - Pneumonitis due to inhalation of food and vomit (3) Tracheostomy complication ICD Codes: J95.00 - Unspecified tracheostomy complication SNOMED: 10568189 Qualifiers: Qualified Codes: J95.00 - Unspecified tracheostomy complication (4) Tracheostomy malfunction ICD Codes: J95.03 - Malfunction of tracheostomy stoma SNOMED: 831043282 Status: progressing Assessment/Plan: dc planning son wants to see the pt before dc abx per id afebrile peg sepsis Oral Crawford MD Feb 20, 2020 19:35
[2020-02-20 20:00] VITALS: BP 146/79
[2020-02-20] MEDS: Dyna-Hex 2% Top Sol 2oz TOPIC SCH (20:05)
--- NOTE | 2020-02-20 20:34 | General Progress Note ---
Subjective Allergies: Coded Allergies: No Known Allergies (Unverified , 02/11/20) Subjective Above note tolerating feeds (+) BM Objective Last 24 Hour Vital Signs Date Time Temp Pulse Resp B/P (MAP) Pulse Ox O2 Delivery O2 Flow Rate FiO2 02/20/20 20:00 98.2 64 14 146/79 (101) 99 02/20/20 20:00 40 02/20/20 18:40 66 14 40 02/20/20 18:12 184/91 02/20/20 17:20 65 14 40 02/20/20 16:00 98.4 82 18 118/82 (94) 100 02/20/20 16:00 40 02/20/20 16:00 Mechanical Ventilator 02/20/20 16:00 64 02/20/20 15:20 79 15 40 02/20/20 14:29 77 162/89 02/20/20 13:00 80 15 40 02/20/20 12:00 Mechanical Ventilator 02/20/20 12:00 97.9 75 17 155/65 (95) 100 02/20/20 12:00 72 02/20/20 12:00 40 02/20/20 11:10 73 14 40 02/20/20 09:32 169/79 02/20/20 09:10 83 17 40 02/20/20 08:00 40 02/20/20 08:00 69 02/20/20 08:00 Mechanical Ventilator 02/20/20 08:00 97.9 75 18 169/79 (109) 100 02/20/20 07:20 71 15 40 02/20/20 05:26 73 143/72 02/20/20 05:09 71 16 40 02/20/20 04:00 40 02/20/20 04:00 63 02/20/20 04:00 Mechanical Ventilator 02/20/20 04:00 98.6 82 18 192/80 (117) 99 02/20/20 02:31 82 19 40 02/20/20 00:30 61 12 40 02/20/20 00:00 98.1 62 18 173/77 (109) 100 02/20/20 00:00 63 02/20/20 00:00 40 02/20/20 00:00 Mechanical Ventilator 02/19/20 22:33 74 19 40 02/19/20 21:06 78 161/73 02/19/20 21:03 66 15 40 Intake and Output 02/19/20 02/20/20 19:00 07:00 Intake Total 1382.416 ml 1145.000 ml Output Total 800 ml Balance 582.416 ml 1145.000 ml Intake Free Water 300 ml 100 ml IV Total 422.416 ml 385.000 ml Tube Feeding 660 ml 660 ml Output Urine Total 800 ml # Bowel Movements 1 Laboratory Tests 02/20/20 03:20: Sodium Level 145, Potassium Level 3.9, Chloride Level 108H, Carbon Dioxide Level 37H, Anion Gap 0L, Blood Urea Nitrogen 16, Creatinine 0.7, Estimat Glomerular Filtration Rate > 60, Glucose Level 111H, Calcium Level 8.3L, Phosphorus Level 2.1L, Magnesium Level 1.9, Total Bilirubin 1.6H, Direct Bilirubin 1.1H, Aspartate Amino Transf (AST/SGOT) 38H, Alanine Aminotransferase (ALT/SGPT) 15, Alkaline Phosphatase 54, Total Protein 6.3L, Albumin 2.0L, Globulin 4.3, Albumin/Globulin Ratio 0.5L Height (Feet): 5 Height (Inches): 8.00 Weight (Pounds): 212 Objective Debilitated man NCAT supple Coarse BS RR abd soft, (+) GT OBS Assessment/Plan Status: progressing Assessment/Plan: Assessment - Resp failure - s/p Trach and PEG - nodular liver - possible cirrhosis - elevated bili Recommendation - follow labs - elevated HOB - TF - check hepatitis serologies --> negative - I will return Mon to see pt Ajit Chappell MD Feb 20, 2020 20:34
[2020-02-21] VITALS: BP 139/64
--- NOTE | 2020-02-21 | NUR ---
NURSE NOTES: patient asleep arousable to shaking opens eyes but nonverbal with Portex 7 on ventilator AC 12 TV 500 FiO2 40% PEEP 5. BP139/64 HR62 NSR on monitor. Left AC #20 and Right Hand #22 SL. Gtube running Glucerna 1.5 @55ml/hr, 5ml residual noted. Johnson catheter draining light jacque urine. Patient repositioned and oral care provided.
[2020-02-21 04:00] VITALS: BP 158/67
--- NOTE | 2020-02-21 04:00 | NUR ---
NURSE NOTES: patient asleep arousable to shaking opens eyes but nonverbal with Portex 7 on ventilator AC 12 TV 500 FiO2 40% PEEP 5. BP158/67 HR58 Sinus Raji on monitor and afebrile. Left AC #20 and Right Hand #22 SL. Gtube running Glucerna 1.5 @55ml/hr, no residual noted. Johnson catheter draining jacque urine with red sediment. BUE weeping serosanguineous edema, and BLE pitting +3 edema, right malleolus DTPI scrotal swelling and redness noted. Patient given CHG bath, left arm dressing changed, repositioned and oral care provided.
[2020-02-21] MEDS: Meropenem 1 GM in NS 55 ML IVPB SCH ×3 (05:14→21:33)
[2020-02-21] MEDS: dilTIAZem HCl 60mg tab GT SCH ×3 (05:15→21:30)
[2020-02-21 05:22] LABS: BASOPHILS % (AUTO) 0.7 % (0.0-2.0); EOSINOPHILS % (AUTO) 18.2 % (0.0-3.0); HEMATOCRIT 32.1 % (42.0-52.0); HEMOGLOBIN 9.4 G/DL (14.2-18.0); LYMPHOCYTES % (AUTO) 12.4 % (20.0-45.0); MEAN CORPUSCULAR VOLUME 107 FL (80-99); MONOCYTES % (AUTO) 4.2 % (1.0-10.0); NEUTROPHILS % (AUTO) 64.5 % (45.0-75.0); PLATELET COUNT 190 K/UL (150-450); RED CELL DISTRIBUTION WIDTH 18.4 % (11.6-14.8); WHITE BLOOD COUNT 7.2 K/UL (4.8-10.8)
--- NOTE | 2020-02-21 07:12 | NUR ---
NURSE NOTES: Received report from Fallon ALCARAZ. Pt. in bed, eyes opens. Non-verbal. No sign of distress. On mech. vent. with setting AC12/VT500/Fi O2 at 40%/P5. No grimacing noted. HOB elevated at all times. On GTF Glucerna 1.5 @ 55cc/hr. F/C in placed patent/intact draining tea colored urine. IV at left AC #20g. and right hand #22g. in placed and PICC line at left upper arm in placed patent/intact. Bed in low position, locked. Call light within reach. Will cont. to monitor.
--- NOTE | 2020-02-21 07:12 | NUR ---
NURSE HAND-OFF REPORT: Important Events on Shift: Patient Status: Diet: glucerna 1.5 @55 Pending Orders: Pending Results/Labs: Pending MD notification: Latest Vital Signs: Temperature 97.0 , Pulse 59 , B/P 158 /67 , Respiratory Rate 15 , O2 SAT 98 , Mechanical Ventilator, O2 Flow Rate 5.0 . Vital Sign Comment: EKG Rhythm: Sinus Rhythm Rhythm change?: N MD Notified?: José Miguel Barry MD Response: Latest Wall Fall Score: 70 Fall Risk: High Risk Safety Measures: Call light Within Reach, Bed Alarm Zone 3, Side Rails Side Rails x3, Bed position Low and Locked. Fall Precautions: Yellow Socks Yellow Gown Door Sign Patient Fall Education Report given to LISSA Hall.
[2020-02-21 08:00] VITALS: BP 153/76
--- NOTE | 2020-02-21 08:34 | General Progress Note ---
Subjective ROS Limited/Unobtainable: No Allergies: Coded Allergies: No Known Allergies (Unverified , 02/11/20) Objective Last 24 Hour Vital Signs Date Time Temp Pulse Resp B/P (MAP) Pulse Ox O2 Delivery O2 Flow Rate FiO2 02/21/20 08:00 40 02/21/20 08:00 97.6 74 19 153/76 (101) 96 02/21/20 07:35 67 16 40 02/21/20 05:15 59 158/67 02/21/20 05:04 64 15 40 02/21/20 04:00 97.0 58 14 158/67 (97) 98 02/21/20 04:00 Mechanical Ventilator 02/21/20 04:00 40 02/21/20 04:00 55 02/21/20 02:36 60 13 40 02/21/20 00:43 62 14 40 02/21/20 00:00 Mechanical Ventilator 02/21/20 00:00 98.4 62 14 139/64 (89) 100 02/21/20 00:00 60 02/20/20 22:42 61 13 40 02/20/20 21:10 67 161/67 02/20/20 20:40 62 12 40 02/20/20 20:00 Mechanical Ventilator 02/20/20 20:00 98.2 64 14 146/79 (101) 99 02/20/20 20:00 40 02/20/20 20:00 61 02/20/20 18:40 66 14 40 02/20/20 18:12 184/91 02/20/20 17:20 65 14 40 02/20/20 16:00 98.4 82 18 118/82 (94) 100 02/20/20 16:00 40 02/20/20 16:00 Mechanical Ventilator 02/20/20 16:00 64 02/20/20 15:20 79 15 40 02/20/20 14:29 77 162/89 02/20/20 13:00 80 15 40 02/20/20 12:00 Mechanical Ventilator 02/20/20 12:00 97.9 75 17 155/65 (95) 100 02/20/20 12:00 72 02/20/20 12:00 40 02/20/20 11:10 73 14 40 02/20/20 09:32 169/79 02/20/20 09:10 83 17 40 Intake and Output 02/20/20 02/21/20 19:00 07:00 Intake Total 1410 ml 1212.416 ml Output Total 800 ml Balance 1410 ml 412.416 ml Intake Free Water 100 ml IV Total 330 ml 477.416 ml Tube Feeding 660 ml 605 ml Other 320 ml 130 ml Output Urine Total 800 ml # Bowel Movements 1 2 Laboratory Tests 02/21/20 03:30: White Blood Count 7.2, Red Blood Count 3.00L, Hemoglobin 9.4L, Hematocrit 32.1L, Mean Corpuscular Volume 107H, Mean Corpuscular Hemoglobin 31.4H, Mean Corpuscular Hemoglobin Concent 29.4L, Red Cell Distribution Width 18.4H, Platelet Count 190, Mean Platelet Volume 6.7, Neutrophils (%) (Auto) 64.5, Lymphocytes (%) (Auto) 12.4L, Monocytes (%) (Auto) 4.2, Eosinophils (%) (Auto) 18.2H, Basophils (%) (Auto) 0.7 Height (Feet): 5 Height (Inches): 8.00 Weight (Pounds): 212 General Appearance: no apparent distress EENT: normal ENT inspection Neck: supple Cardiovascular: normal rate Respiratory/Chest: decreased breath sounds Abdomen: hypoactive bowel sounds Extremities: non-tender Assessment/Plan Status: progressing Assessment/Plan: Assessment - Resp failure - s/p Trach and PEG - nodular liver - possible cirrhosis - elevated bili Recommendation - follow labs - elevated HOB - TF - check hepatitis serologies --> negative Velasquez Donahue MD Feb 21, 2020 08:34
[2020-02-21] MEDS: Lisinopril 10mg tab GT SCH ×2 (08:57→17:54)
[2020-02-21] MEDS: Ascorbic Acid 500mg tab GT SCH (08:57)
[2020-02-21] MEDS: Levofloxacin 750mg tab GT SCH (08:57)
[2020-02-21] MEDS: Pantoprazole Inj IVP SCH (08:57)
[2020-02-21] MEDS: levETIRAcetam 500mg/5ml Liquid GT SCH ×2 (08:57→20:20)
[2020-02-21] MEDS: Zinc Sulfate 220mg GT SCH (08:58)
[2020-02-21] MEDS: Heparin 5000 units/ml inj SUBQ SCH ×2 (09:02→20:22)
--- NOTE | 2020-02-21 10:26 | NUR ---
NURSE NOTES: CN received a call from Dr. Crawford and told RN after the son visits from [place] that pt. august d/c back to SNF.
--- NOTE | 2020-02-21 11:54 | Pulmonology Progress Note ---
Subjective ROS Limited/Unobtainable: No Interval Events: None new Constitutional: Denies: fever HEENT: Repors: no symptoms Respiratory: Reports: no symptoms Cardiovascular: Reports: no symptoms Gastrointestinal/Abdominal: Reports: other - NPO Allergies: Coded Allergies: No Known Allergies (Unverified , 02/11/20) Objective Last 24 Hour Vital Signs Date Time Temp Pulse Resp B/P (MAP) Pulse Ox O2 Delivery O2 Flow Rate FiO2 02/21/20 09:15 57 12 40 02/21/20 08:57 153/76 02/21/20 08:00 Mechanical Ventilator 02/21/20 08:00 40 02/21/20 08:00 97.6 74 19 153/76 (101) 96 02/21/20 08:00 63 02/21/20 07:35 67 16 40 02/21/20 05:15 59 158/67 02/21/20 05:04 64 15 40 02/21/20 04:00 97.0 58 14 158/67 (97) 98 02/21/20 04:00 Mechanical Ventilator 02/21/20 04:00 40 02/21/20 04:00 55 02/21/20 02:36 60 13 40 02/21/20 00:43 62 14 40 02/21/20 00:00 Mechanical Ventilator 02/21/20 00:00 98.4 62 14 139/64 (89) 100 02/21/20 00:00 60 02/20/20 22:42 61 13 40 02/20/20 21:10 67 161/67 02/20/20 20:40 62 12 40 02/20/20 20:00 Mechanical Ventilator 02/20/20 20:00 98.2 64 14 146/79 (101) 99 02/20/20 20:00 40 02/20/20 20:00 61 02/20/20 18:40 66 14 40 02/20/20 18:12 184/91 02/20/20 17:20 65 14 40 02/20/20 16:00 98.4 82 18 118/82 (94) 100 02/20/20 16:00 40 02/20/20 16:00 Mechanical Ventilator 02/20/20 16:00 64 02/20/20 15:20 79 15 40 02/20/20 14:29 77 162/89 02/20/20 13:00 80 15 40 02/20/20 12:00 Mechanical Ventilator 02/20/20 12:00 97.9 75 17 155/65 (95) 100 02/20/20 12:00 72 02/20/20 12:00 40 Intake and Output 02/20/20 02/21/20 19:00 07:00 Intake Total 1410 ml 1267.416 ml Output Total 800 ml Balance 1410 ml 467.416 ml Intake Free Water 100 ml IV Total 330 ml 477.416 ml Tube Feeding 660 ml 660 ml Other 320 ml 130 ml Output Urine Total 800 ml # Bowel Movements 1 2 General Appearance: no acute distress HEENT: normocephalic Respiratory: chest wall non-tender, lungs clear Cardiovascular: normal peripheral pulses Abdomen: normal bowel sounds Laboratory Tests 02/21/20 03:30: White Blood Count 7.2, Red Blood Count 3.00L, Hemoglobin 9.4L, Hematocrit 32.1L, Mean Corpuscular Volume 107H, Mean Corpuscular Hemoglobin 31.4H, Mean Corpuscular Hemoglobin Concent 29.4L, Red Cell Distribution Width 18.4H, Platelet Count 190, Mean Platelet Volume 6.7, Neutrophils (%) (Auto) 64.5, Lymphocytes (%) (Auto) 12.4L, Monocytes (%) (Auto) 4.2, Eosinophils (%) (Auto) 18.2H, Basophils (%) (Auto) 0.7 Current Medications Medications (Trade) Dose Ordered Sig/Natalia Route PRN Reason Start Time Stop Time Status Last Admin Dose Admin Acetaminophen (Tylenol) 650 mg Q4H PRN GT Temp >100.5 02/11/20 13:30 03/12/20 13:29 Acetaminophen (Tylenol) 650 mg Q4H PRN GT Mild Pain (Pain Scale 1-3) 02/11/20 13:45 03/12/20 13:44 Ascorbic Acid (Vitamin C) 500 mg DAILY GT 02/17/20 09:00 03/18/20 08:59 02/21/20 08:57 Chlorhexidine Gluconate (Shirley-Hex 2%) 1 applic DAILY@1999 TOPIC 02/19/20 20:00 05/19/20 19:59 02/20/20 20:05 Diltiazem HCl (Cardizem Tab) 60 mg Q8HR GT 02/16/20 14:00 03/12/20 17:59 02/21/20 05:15 Heparin Sodium (Porcine) (Heparin 5000 units/ml) 5,000 units EVERY 12 HOURS SUBQ 02/12/20 21:00 03/28/20 20:59 02/21/20 09:02 Hydralazine HCl (Apresoline) 10 mg Q4H PRN IV BP over 160 syst 02/16/20 10:10 05/16/20 10:09 02/19/20 06:06 Levetiracetam (Keppra) 1,500 mg Q12HR GT 02/11/20 21:00 03/12/20 20:59 02/21/20 08:57 Levofloxacin (Levaquin) 750 mg DAILY GT 02/21/20 09:00 02/28/20 08:59 02/21/20 08:57 Lisinopril (ZestriL) 10 mg BID GT 02/19/20 10:45 03/18/20 09:44 02/21/20 08:57 Meropenem 1 gm/ Sodium Chloride 55 ml @ 110 mls/hr Q8HR IVPB 02/21/20 14:00 02/26/20 13:59 Pantoprazole (Protonix) 40 mg DAILY IVP 02/13/20 09:00 03/14/20 08:59 02/21/20 08:57 Vancomycin HCl (Vanco pharmacy to dose) 1 ea DAILY PRN MISC Per rx protocol 02/12/20 11:30 03/13/20 11:29 Vancomycin HCl 1 gm/Sodium Chloride 275 ml @ 183.708 mls/hr Q12H IVPB 02/21/20 12:00 02/26/20 11:59 Zinc Sulfate (Zinc Sulfate) 220 mg DAILY GT 02/17/20 09:00 02/27/20 08:59 02/21/20 08:58 Assessment/Plan Assessment/Plan IMPRESSION: 1. Bilateral lung pneumonia (HCAP) with pseudomonas/stenotrophomonas 2. Leukocytosis. Resolved 3. Lactic acidemia. 4. Endo-tracheal bleeding/hemoptysis... Hgb stable post-transfusion 5. Chronic tracheostomy. 6. Chronic vent dependence. 7. Chronic G-tube. 8. Previous CVA. DISCUSSION: Continue broad-spectrum antibiotics. Oxygen and pulmonary hygiene. Tracheostomy site is clean CT chest confirms dense bilateral pneumonia Micro - stentotrophomonas/pseudomonas I will follow carefully. DVT and GI prophylaxes. PICC line in place OK to dc back to SNF Will need IV abx (Meropenem) Kandy Golden Omar Syed MD Feb 21, 2020 11:54
[2020-02-21 12:00] VITALS: BP 167/76
--- NOTE | 2020-02-21 12:00 | NUR ---
NURSE NOTES: Seen by Dr. Barry with [facility].
--- NOTE | 2020-02-21 12:18 | Nephrology Progress Note ---
Assessment/Plan Problem List: (1) Electrolyte imbalance (2) HTN (hypertension) (3) Aspiration pneumonia (4) Tracheostomy complication (5) Anemia (6) Chronic respiratory failure Assessment Electrolyte imbalance, hypokalemia Normal BUN/creatinine Sepsis leukocytosis tachycardia with left-sided pneumonia Tracheostomy complication with bleeding Anemia Ventilator dependent respiratory failure Atrial fibrillation PEG Plan February 20: No labs drawn today. Will order labs tomorrow. Clinically stable. Continue per consultants. Remains full code. February 19: Labs reviewed. Phosphorus supplement ordered. Continue per consultants. February 18: No chemistry panel done today. Stable from renal standpoint of view. February 17: Labs reviewed. Abnormal electrolytes addressed. Blood pressure medication adjusted. Continue as is. February 16: Potassium supplement, phosphorus, magnesium supplement as needed. Monitor electrolytes and chemistries. Discontinued IV fluid. Adjust blood pressure medication, Zestril added and 1 dose of Lasix 20 mg given Subjective ROS Limited/Unobtainable: Yes Objective Objective Last 24 Hour Vital Signs Date Time Temp Pulse Resp B/P (MAP) Pulse Ox O2 Delivery O2 Flow Rate FiO2 02/21/20 09:15 57 12 40 02/21/20 08:57 153/76 02/21/20 08:00 Mechanical Ventilator 02/21/20 08:00 40 02/21/20 08:00 97.6 74 19 153/76 (101) 96 02/21/20 08:00 63 02/21/20 07:35 67 16 40 02/21/20 05:15 59 158/67 02/21/20 05:04 64 15 40 02/21/20 04:00 97.0 58 14 158/67 (97) 98 02/21/20 04:00 Mechanical Ventilator 02/21/20 04:00 40 02/21/20 04:00 55 02/21/20 02:36 60 13 40 02/21/20 00:43 62 14 40 02/21/20 00:00 Mechanical Ventilator 02/21/20 00:00 98.4 62 14 139/64 (89) 100 02/21/20 00:00 60 02/20/20 22:42 61 13 40 02/20/20 21:10 67 161/67 02/20/20 20:40 62 12 40 02/20/20 20:00 Mechanical Ventilator 02/20/20 20:00 98.2 64 14 146/79 (101) 99 02/20/20 20:00 40 02/20/20 20:00 61 02/20/20 18:40 66 14 40 02/20/20 18:12 184/91 02/20/20 17:20 65 14 40 02/20/20 16:00 98.4 82 18 118/82 (94) 100 02/20/20 16:00 40 02/20/20 16:00 Mechanical Ventilator 02/20/20 16:00 64 02/20/20 15:20 79 15 40 02/20/20 14:29 77 162/89 02/20/20 13:00 80 15 40 Intake and Output 02/20/20 02/21/20 19:00 07:00 Intake Total 1410 ml 1267.416 ml Output Total 800 ml Balance 1410 ml 467.416 ml Intake Free Water 100 ml IV Total 330 ml 477.416 ml Tube Feeding 660 ml 660 ml Other 320 ml 130 ml Output Urine Total 800 ml # Bowel Movements 1 2 Laboratory Tests 02/21/20 03:30: White Blood Count 7.2, Red Blood Count 3.00L, Hemoglobin 9.4L, Hematocrit 32.1L, Mean Corpuscular Volume 107H, Mean Corpuscular Hemoglobin 31.4H, Mean Corpuscular Hemoglobin Concent 29.4L, Red Cell Distribution Width 18.4H, Platelet Count 190, Mean Platelet Volume 6.7, Neutrophils (%) (Auto) 64.5, Lym phocytes (%) (Auto) 12.4L, Monocytes (%) (Auto) 4.2, Eosinophils (%) (Auto) 18.2H, Basophils (%) (Auto) 0.7 Height (Feet): 5 Height (Inches): 8.00 Weight (Pounds): 212 General Appearance: no apparent distress EENT: other - Trach to vent Cardiovascular: normal rate, bradycardia Respiratory/Chest: decreased breath sounds Abdomen: distended Tano Longoria MD Feb 21, 2020 12:18
[2020-02-21] MEDS: Vancomycin 1 GM in NS 275 ML IVPB SCH (13:00)
--- NOTE | 2020-02-21 13:51 | Cardiac Electrophysiology PN ---
Assessment/Plan Assessment/Plan 1. Atrial fibrillation with rapid ventricular response. On Cardizem 60 mg tid Off anticoagulation for tracheal bleed. In SR with first degree AVB 2. Accelerated hypertension. On Cardizem 60 tid and Lisinopril 10 bid 3. Bleeding from the trach site. Further evaluation by Surgery. S/P PRBC 4. Ventilator-respiratory failure. Further evaluation by Dr. Otero. 5. Dysphagia, status post PEG placement. 6. Elevated white count and sepsis, on IV antibiotic. DW RN DC toady back to [facility] Subjective Subjective Fio2 40% and PEEP 5. .No more tracheal bleed. DC to [facility] pending sons visit today from [place] Objective Last 24 Hour Vital Signs Date Time Temp Pulse Resp B/P (MAP) Pulse Ox O2 Delivery O2 Flow Rate FiO2 02/21/20 12:00 40 02/21/20 12:00 97.8 64 20 167/76 (106) 98 02/21/20 11:34 66 12 40 02/21/20 09:15 57 12 40 02/21/20 08:57 153/76 02/21/20 08:00 Mechanical Ventilator 02/21/20 08:00 40 02/21/20 08:00 97.6 74 19 153/76 (101) 96 02/21/20 08:00 63 02/21/20 07:35 67 16 40 02/21/20 05:15 59 158/67 02/21/20 05:04 64 15 40 02/21/20 04:00 97.0 58 14 158/67 (97) 98 02/21/20 04:00 Mechanical Ventilator 02/21/20 04:00 40 02/21/20 04:00 55 02/21/20 02:36 60 13 40 02/21/20 00:43 62 14 40 02/21/20 00:00 Mechanical Ventilator 02/21/20 00:00 98.4 62 14 139/64 (89) 100 02/21/20 00:00 60 02/20/20 22:42 61 13 40 02/20/20 21:10 67 161/67 02/20/20 20:40 62 12 40 02/20/20 20:00 Mechanical Ventilator 02/20/20 20:00 98.2 64 14 146/79 (101) 99 02/20/20 20:00 40 02/20/20 20:00 61 02/20/20 18:40 66 14 40 02/20/20 18:12 184/91 02/20/20 17:20 65 14 40 02/20/20 16:00 98.4 82 18 118/82 (94) 100 02/20/20 16:00 40 02/20/20 16:00 Mechanical Ventilator 02/20/20 16:00 64 02/20/20 15:20 79 15 40 02/20/20 14:29 77 162/89 Intake and Output 02/20/20 02/21/20 19:00 07:00 Intake Total 1410 ml 1267.416 ml Output Total 800 ml Balance 1410 ml 467.416 ml Intake Free Water 100 ml IV Total 330 ml 477.416 ml Tube Feeding 660 ml 660 ml Other 320 ml 130 ml Output Urine Total 800 ml # Bowel Movements 1 2 Laboratory Tests Test 02/21/20 03:30 White Blood Count 7.2 K/UL (4.8-10.8) Red Blood Count 3.00 M/UL (4.70-6.10) L Hemoglobin 9.4 G/DL (14.2-18.0) L Hematocrit 32.1 % (42.0-52.0) L Mean Corpuscular Volume 107 FL (80-99) H Mean Corpuscular Hemoglobin 31.4 PG (27.0-31.0) H Mean Corpuscular Hemoglobin Concent 29.4 G/DL (32.0-36.0) L Red Cell Distribution Width 18.4 % (11.6-14.8) H Platelet Count 190 K/UL (150-450) Mean Platelet Volume 6.7 FL (6.5-10.1) Neutrophils (%) (Auto) 64.5 % (45.0-75.0) Lymphocytes (%) (Auto) 12.4 % (20.0-45.0) L Monocytes (%) (Auto) 4.2 % (1.0-10.0) Eosinophils (%) (Auto) 18.2 % (0.0-3.0) H Basophils (%) (Auto) 0.7 % (0.0-2.0) Objective HEAD AND NECK: No JVD. Status post tracheostomy LUNGS: Coarse rhonchi. CARDIOVASCULAR: Shows irregular S1 and S2 with no gallop. ABDOMEN: Soft. Status post G-tube. EXTREMITIES: No pitting edema. Liang Barry MD Feb 21, 2020 13:51
--- NOTE | 2020-02-21 14:45 | Surgery Progress Note ---
Surgery Progress Note Subjective Symptoms: improved, tolerating diet, passing flatus Objective Last 24 Hour Vital Signs Date Time Temp Pulse Resp B/P (MAP) Pulse Ox O2 Delivery O2 Flow Rate FiO2 02/21/20 14:17 73 15 98 Mechanical Ventilator 40 02/21/20 13:32 65 15 40 02/21/20 12:00 40 02/21/20 12:00 60 02/21/20 12:00 97.8 64 20 167/76 (106) 98 02/21/20 11:34 66 12 40 02/21/20 09:15 57 12 40 02/21/20 08:57 153/76 02/21/20 08:00 Mechanical Ventilator 02/21/20 08:00 40 02/21/20 08:00 97.6 74 19 153/76 (101) 96 02/21/20 08:00 63 02/21/20 07:35 67 16 40 02/21/20 05:15 59 158/67 02/21/20 05:04 64 15 40 02/21/20 04:00 97.0 58 14 158/67 (97) 98 02/21/20 04:00 Mechanical Ventilator 02/21/20 04:00 40 02/21/20 04:00 55 02/21/20 02:36 60 13 40 02/21/20 00:43 62 14 40 02/21/20 00:00 Mechanical Ventilator 02/21/20 00:00 98.4 62 14 139/64 (89) 100 02/21/20 00:00 60 02/20/20 22:42 61 13 40 02/20/20 21:10 67 161/67 02/20/20 20:40 62 12 40 02/20/20 20:00 Mechanical Ventilator 02/20/20 20:00 98.2 64 14 146/79 (101) 99 02/20/20 20:00 40 02/20/20 20:00 61 02/20/20 18:40 66 14 40 02/20/20 18:12 184/91 02/20/20 17:20 65 14 40 02/20/20 16:00 98.4 82 18 118/82 (94) 100 02/20/20 16:00 40 02/20/20 16:00 Mechanical Ventilator 02/20/20 16:00 64 02/20/20 15:20 79 15 40 I&O Intake and Output 02/20/20 02/21/20 19:00 07:00 Intake Total 1410 ml 1267.416 ml Output Total 800 ml Balance 1410 ml 467.416 ml Intake Free Water 100 ml IV Total 330 ml 477.416 ml Tube Feeding 660 ml 660 ml Other 320 ml 130 ml Output Urine Total 800 ml # Bowel Movements 1 2 Dressing: saturated Cardiovascular: RSR Respiratory: decreased breath sounds Abdomen: non-tender, present bowel sounds, other, non-distended Extremities: no edema, no tenderness, no cyanosis Laboratory Tests Test 02/21/20 03:30 White Blood Count 7.2 K/UL (4.8-10.8) Red Blood Count 3.00 M/UL (4.70-6.10) L Hemoglobin 9.4 G/DL (14.2-18.0) L Hematocrit 32.1 % (42.0-52.0) L Mean Corpuscular Volume 107 FL (80-99) H Mean Corpuscular Hemoglobin 31.4 PG (27.0-31.0) H Mean Corpuscular Hemoglobin Concent 29.4 G/DL (32.0-36.0) L Red Cell Distribution Width 18.4 % (11.6-14.8) H Platelet Count 190 K/UL (150-450) Mean Platelet Volume 6.7 FL (6.5-10.1) Neutrophils (%) (Auto) 64.5 % (45.0-75.0) Lymphocytes (%) (Auto) 12.4 % (20.0-45.0) L Monocytes (%) (Auto) 4.2 % (1.0-10.0) Eosinophils (%) (Auto) 18.2 % (0.0-3.0) H Basophils (%) (Auto) 0.7 % (0.0-2.0) Plan Problems: (1) Sepsis Assessment & Plan: H&H has been stable since transfusion. Still with bloody aspirate with deep suctioning. No bleeding around tracheostomy site. LFTs remain elevated T bili direct bili ultrasound ordered (2) Aspiration pneumonia (3) Tracheostomy complication Assessment & Plan: This 84-year-old male with bleeding from tracheostomy noted in facility. Since has had some residue within the suctioning. Trach evaluated bedside no active bleeding noted. No skin issues. Mild granulation tissue. Able to manipulate and function without problem. Deep suctioning performed no active bleeding identified. Potential isolated incident we will continue to mo nitor over the next 2 to 3 days to ensure no active bleeding or source of bleeding that requires intervention. Thank you allowing me to participate in patient's care There is infiltrate at the left lung base. There may be some pleural fluid. The heart size is normal. There is a tracheostomy. noted some blood with suction trach okay ? bronch as per pulm Impression: Left basilar infiltrate and possible pleural fluid Tracheostomy (4) Tracheostomy malfunction Assessment & Plan: DAILY ESTIMATED NEEDS: Needs based on Critical care, wound/ 76kg abw 22-28 kcals/kg 4254-2380 total kcals 1.25-2 g protein/kg 95-152 g total protein 25-30 mL/kg 2516-5397 total fluid mLs NUTRITION DIAGNOSIS: * Swallowing difficulty R/T respiratory status as evidenced by trach/vent dep, PEG dep, NPO at this time. * Increased kcal/prot/micronutrients needs R/T wound healing as evidenced by pt admitted w/ stage 3 R lateral ankle wound. CURRENT TF: Vital @30 ENTERAL NUTRITION RECOMMENDATIONS: Glucerna 1.5 @ 55ml/hr x 24 hrs to provide 1320ml, 1980kcal, 109g prot, 1002ml free water * As medically appropriate, initiate Glucerna 1.5 @ 25ml/hr x 6hrs * Advance 10ml q 4-6 hrs as tolerated to goal rate * HOB over 30 degrees/ water flush per MD ADDITIONAL RECOMMENDATIONS: * Calibrated bedscale wt * Wound healing: TF rec @ goal provides 100% RDI add Vit C 500mg QD, ZnSO4 220mg QD x 10 days Yuriy BID via PEG w/ TF order * Monitor BGs, need for NISS * K low, rec repletion Yousuf Samayoa Feb 21, 2020 14:45
--- NOTE | 2020-02-21 15:48 | Infectious Diseases Prog Note ---
Assessment/Plan Assessment/Plan IMPRESSION: Sepsis with Staph aureus (MRSA) Pseudomonas, E coli & Steotrophomonas pneumonia, Tracheostomy complication with bleeding. 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 Subjective ROS Limited/Unobtainable: Yes Constitutional: Denies: fever Allergies: Coded Allergies: No Known Allergies (Unverified , 02/11/20) Objective Last 24 Hour Vital Signs Date Time Temp Pulse Resp B/P (MAP) Pulse Ox O2 Delivery O2 Flow Rate FiO2 02/21/20 15:01 73 167/76 02/21/20 14:17 73 15 98 Mechanical Ventilator 40 02/21/20 13:32 65 15 40 02/21/20 12:00 Mechanical Ventilator 02/21/20 12:00 40 02/21/20 12:00 60 02/21/20 12:00 97.8 64 20 167/76 (106) 98 02/21/20 11:34 66 12 40 02/21/20 09:15 57 12 40 02/21/20 08:57 153/76 02/21/20 08:00 Mechanical Ventilator 02/21/20 08:00 40 02/21/20 08:00 97.6 74 19 153/76 (101) 96 02/21/20 08:00 63 02/21/20 07:35 67 16 40 02/21/20 05:15 59 158/67 02/21/20 05:04 64 15 40 02/21/20 04:00 97.0 58 14 158/67 (97) 98 02/21/20 04:00 Mechanical Ventilator 02/21/20 04:00 40 02/21/20 04:00 55 02/21/20 02:36 60 13 40 02/21/20 00:43 62 14 40 02/21/20 00:00 Mechanical Ventilator 02/21/20 00:00 98.4 62 14 139/64 (89) 100 02/21/20 00:00 60 02/20/20 22:42 61 13 40 02/20/20 21:10 67 161/67 02/20/20 20:40 62 12 40 02/20/20 20:00 Mechanical Ventilator 02/20/20 20:00 98.2 64 14 146/79 (101) 99 02/20/20 20:00 40 02/20/20 20:00 61 02/20/20 18:40 66 14 40 02/20/20 18:12 184/91 02/20/20 17:20 65 14 40 02/20/20 16:00 98.4 82 18 118/82 (94) 100 02/20/20 16:00 40 02/20/20 16:00 Mechanical Ventilator 02/20/20 16:00 64 Height (Feet): 5 Height (Inches): 8.00 Weight (Pounds): 212 General Appearance: no acute distress HEENT: status post trach Respiratory/Chest: lungs clear, other - on ventilator Cardiovascular: normal rate Abdomen: soft, non tender, other - GT feeding Extremities: other - legs edema Neurologic/Psychiatric: aphasia Laboratory Tests Test 02/21/20 03:30 White Blood Count 7.2 K/UL (4.8-10.8) Red Blood Count 3.00 M/UL (4.70-6.10) L Hemoglobin 9.4 G/DL (14.2-18.0) L Hematocrit 32.1 % (42.0-52.0) L Mean Corpuscular Volume 107 FL (80-99) H Mean Corpuscular Hemoglobin 31.4 PG (27.0-31.0) H Mean Corpuscular Hemoglobin Concent 29.4 G/DL (32.0-36.0) L Red Cell Distribution Width 18.4 % (11.6-14.8) H Platelet Count 190 K/UL (150-450) Mean Platelet Volume 6.7 FL (6.5-10.1) Neutrophils (%) (Auto) 64.5 % (45.0-75.0) Lymphocytes (%) (Auto) 12.4 % (20.0-45.0) L Monocytes (%) (Auto) 4.2 % (1.0-10.0) Eosinophils (%) (Auto) 18.2 % (0.0-3.0) H Basophils (%) (Auto) 0.7 % (0.0-2.0) Current Medications Medications (Trade) Dose Ordered Sig/Natalia Route PRN Reason Start Time Stop Time Status Last Admin Dose Admin Acetaminophen (Tylenol) 650 mg Q4H PRN GT Temp >100.5 02/11/20 13:30 03/12/20 13:29 Acetaminophen (Tylenol) 650 mg Q4H PRN GT Mild Pain (Pain Scale 1-3) 02/11/20 13:45 03/12/20 13:44 Ascorbic Acid (Vitamin C) 500 mg DAILY GT 02/17/20 09:00 03/18/20 08:59 02/21/20 08:57 Chlorhexidine Gluconate (Shirley-Hex 2%) 1 applic DAILY@2000 TOPIC 02/19/20 20:00 05/19/20 19:59 02/20/20 20:05 Diltiazem HCl (Cardizem Tab) 60 mg Q8HR GT 02/16/20 14:00 03/12/20 17:59 02/21/20 15:01 Heparin Sodium (Porcine) (Heparin 5000 units/ml) 5,000 units EVERY 12 HOURS SUBQ 02/12/20 21:00 03/28/20 20:59 02/21/20 09:02 Hydralazine HCl (Apresoline) 10 mg Q4H PRN IV BP over 160 syst 02/16/20 10:10 05/16/20 10:09 02/19/20 06:06 Levetiracetam (Keppra) 1,500 mg Q12HR GT 02/11/20 21:00 03/12/20 20:59 02/21/20 08:57 Levofloxacin (Levaquin) 750 mg DAILY GT 02/21/20 09:00 02/28/20 08:59 02/21/20 08:57 Lisinopril (ZestriL) 10 mg BID GT 02/19/20 10:45 03/18/20 09:44 02/21/20 08:57 Meropenem 1 gm/ Sodium Chloride 55 ml @ 110 mls/hr Q8HR IVPB 02/21/20 14:00 02/26/20 13:59 02/21/20 15:03 Pantoprazole (Protonix) 40 mg DAILY IVP 02/13/20 09:00 03/14/20 08:59 02/21/20 08:57 Vancomycin HCl (Vanco pharmacy to dose) 1 ea DAILY PRN MISC Per rx protocol 02/12/20 11:30 03/13/20 11:29 Vancomycin HCl 1 gm/Sodium Chloride 275 ml @ 183.708 mls/hr Q12H IVPB 02/21/20 12:00 02/26/20 11:59 02/21/20 13:00 Zinc Sulfate (Zinc Sulfate) 220 mg DAILY GT 02/17/20 09:00 02/27/20 08:59 02/21/20 08:58 Ulises Vasquez MD Feb 21, 2020 15:48
[2020-02-21 16:00] VITALS: BP 158/78
--- NOTE | 2020-02-21 18:56 | NUR ---
NURSE HAND-OFF REPORT: Important Events on Shift: Per Cortney (estate planner) d/c held needs authorization per CM and it is on the notes/ Patient Status: stable Diet: Glucerna 1.5 at 55cc/hr. Pending Orders: Pending Results/Labs: Pending MD notification: Latest Vital Signs: Temperature 99.5 , Pulse 69 , B/P 158 /78 , Respiratory Rate 14 , O2 SAT 100 , Mechanical Ventilator, O2 Flow Rate 5.0 . Vital Sign Comment: EKG Rhythm: Sinus Rhythm Rhythm change?: N Notified?: José Miguel Barry MD Response: Latest Wall Fall Score: 70 Fall Risk: High Risk Safety Measures: Call light Within Reach, Bed Alarm Zone 3, Side Rails Side Rails x3, Bed position Low and Locked. Fall Precautions: Yellow Socks Yellow Gown Door Sign Patient Fall Education Report given to Princess ALCARAZ.
--- NOTE | 2020-02-21 19:00 | NUR ---
NURSE NOTES: Received report from LISSA Valencia. Pt is seen sleeping in semi-hernandez's position. Pt has DELBERT IV site patent and running. Pt is obtunded but can respond to name when called by name. Pt open eyes spontaneously. With aggarwal running patent and intact and draining yellow urine. No bleeding on trach anymore. With weeping on bilateral arms noted. Attached to vent with settings as ordered tolerating well. No signs of apparent respiratory distress. No pain noted, no facial grimace noted. pt is sleeping comfortably in bed. Bed in lowest position. Call light within reach. SCD's on applied on bilateral foot. Continue to plan of care.
[2020-02-21 20:00] VITALS: BP 186/78
--- NOTE | 2020-02-21 20:00 | NUR ---
NURSE NOTES: Noted SBP- 180's. Given Hydralazine as ordered.
[2020-02-21] MEDS: Dyna-Hex 2% Top Sol 2oz TOPIC SCH (20:20)
--- NOTE | 2020-02-21 21:22 | General Progress Note ---
Subjective ROS Limited/Unobtainable: Yes Allergies: Coded Allergies: No Known Allergies (Unverified , 02/11/20) Objective Last 24 Hour Vital Signs Date Time Temp Pulse Resp B/P (MAP) Pulse Ox O2 Delivery O2 Flow Rate FiO2 02/21/20 20:43 67 12 40 02/21/20 20:00 70 02/21/20 20:00 Mechanical Ventilator 02/21/20 20:00 40 02/21/20 20:00 95.5 66 19 186/78 (114) 100 02/21/20 19:30 63 12 40 02/21/20 17:54 158/78 02/21/20 17:02 69 14 40 02/21/20 16:00 40 02/21/20 16:00 Mechanical Ventilator 02/21/20 16:00 99.5 73 20 158/78 (104) 100 02/21/20 16:00 64 02/21/20 15:13 70 13 40 02/21/20 15:01 73 167/76 02/21/20 14:17 73 15 98 Mechanical Ventilator 40 02/21/20 13:32 65 15 40 02/21/20 12:00 Mechanical Ventilator 02/21/20 12:00 40 02/21/20 12:00 60 02/21/20 12:00 97.8 64 20 167/76 (106) 98 02/21/20 11:34 66 12 40 02/21/20 09:15 57 12 40 02/21/20 08:57 153/76 02/21/20 08:00 Mechanical Ventilator 02/21/20 08:00 40 02/21/20 08:00 97.6 74 19 153/76 (101) 96 02/21/20 08:00 63 02/21/20 07:35 67 16 40 02/21/20 05:15 59 158/67 02/21/20 05:04 64 15 40 02/21/20 04:00 97.0 58 14 158/67 (97) 98 02/21/20 04:00 Mechanical Ventilator 02/21/20 04:00 40 02/21/20 04:00 55 02/21/20 02:36 60 13 40 02/21/20 00:43 62 14 40 02/21/20 00:00 Mechanical Ventilator 02/21/20 00:00 98.4 62 14 139/64 (89) 100 02/21/20 00:00 60 02/20/20 22:42 61 13 40 Intake and Output 02/20/20 02/21/20 19:00 07:00 Intake Total 1410 ml 1267.416 ml Output Total 800 ml Balance 1410 ml 467.416 ml Intake Free Water 100 ml IV Total 330 ml 477.416 ml Tube Feeding 660 ml 660 ml Other 320 ml 130 ml Output Urine Total 800 ml # Bowel Movements 1 2 Laboratory Tests 02/21/20 03:30: White Blood Count 7.2, Red Blood Count 3.00L, Hemoglobin 9.4L, Hematocrit 32.1L, Mean Corpuscular Volume 107H, Mean Corpuscular Hemoglobin 31.4H, Mean Corpuscular Hemoglobin Concent 29.4L, Red Cell Distribution Width 18.4H, Platelet Count 190, Mean Platelet Volume 6.7, Neutrophils (%) (Auto) 64.5, Lymphocytes (%) (Auto) 12.4L, Monocytes (%) (Auto) 4.2, Eosinophils (%) (Auto) 18.2H, Basophils (%) (Auto) 0.7 Height (Feet): 5 Height (Inches): 8.00 Weight (Pounds): 212 Assessment/Plan Problem List: (1) Sepsis ICD Codes: A41.9 - Sepsis, unspecified organism SNOMED: 42361135 Qualifiers: Qualified Codes: A41.9 - Sepsis, unspecified organism; R65.20 - Severe sepsis without septic shock; J96.01 - Acute respiratory failure with hypoxia (2) Aspiration pneumonia ICD Codes: J69.0 - Pneumonitis due to inhalation of food and vomit SNOMED: 005797887 Qualifiers: Qualified Codes: J69.0 - Pneumonitis due to inhalation of food and vomit (3) Tracheostomy complication ICD Codes: J95.00 - Unspecified tracheostomy complication SNOMED: 83576747 Qualifiers: Qualified Codes: J95.00 - Unspecified tracheostomy complication (4) Tracheostomy malfunction ICD Codes: J95.03 - Malfunction of tracheostomy stoma SNOMED: 044945955 Status: progressing Assessment/Plan: afebrile trach and peg dc to snf malnutrtion vitals stable sepsis improved Oral Crawford MD Feb 21, 2020 21:22
[2020-02-22] VITALS: BP 158/65
[2020-02-22] MEDS: Vancomycin 1 GM in NS 275 ML IVPB SCH ×3 (00:28→23:33)
--- NOTE | 2020-02-22 03:00 | NUR ---
NURSE NOTES: Sponge bath given. Clean and changed linens. Repositioned as protocol. Continue to plan of care. Bed in lowest position. Call light within reach.
[2020-02-22 04:00] VITALS: BP 137/72
[2020-02-22] MEDS: dilTIAZem HCl 60mg tab GT SCH ×3 (05:20→21:46)
[2020-02-22] MEDS: Meropenem 1 GM in NS 55 ML IVPB SCH ×3 (05:27→21:46)
[2020-02-22 05:32] LABS: HEMATOCRIT 26.9 % (42.0-52.0); HEMOGLOBIN 7.8 G/DL (14.2-18.0); MEAN CORPUSCULAR VOLUME 107 FL (80-99); PLATELET COUNT 180 K/UL (150-450); RED BLOOD COUNT 2.52 M/UL (4.70-6.10)
--- NOTE | 2020-02-22 06:15 | NUR ---
NURSE NOTES: Pt is sleeping in bed comfortably with no signs of distress. o2 sat -100%. Bed in lowest position. Call light within reach. Continue to plan of care.
[2020-02-22 06:16] LABS: ALANINE AMINOTRANSFERASE 20 U/L (12-78); ALBUMIN 1.7 G/DL (3.4-5.0); ALBUMIN/GLOBULIN RATIO 0.5 (1.0-2.7); ALKALINE PHOSPHATASE 49 U/L (46-116); ANION GAP 1 mmol/L (5-15); ASPARTATE AMINO TRANSFERASE 37 U/L (15-37); BILIRUBIN,TOTAL 1.1 MG/DL (0.2-1.0); BLOOD UREA NITROGEN 16 mg/dL (7-18); CALCIUM 7.2 MG/DL (8.5-10.1); CARBON DIOXIDE 32 MMOL/L (21-32); CHLORIDE 111 MMOL/L (98-107); CREATININE 0.6 MG/DL (0.55-1.30); POTASSIUM 3.6 MMOL/L (3.5-5.1); SODIUM 144 MMOL/L (136-145)
[2020-02-22 06:18] LABS: BILIRUBIN,DIRECT 0.7 MG/DL (0.0-0.3)
--- NOTE | 2020-02-22 06:31 | NUR ---
NURSE NOTES: Relayed hgb- 7.8. to Dr. Edgar. Ordered PRBC x 1. Consent signed.
--- NOTE | 2020-02-22 06:56 | Hematology/Onc Progress Note ---
Assessment/Plan Assessment/Plan IMPRESSION/RECS: 1. Leukcytosis with underlying Left lung pneumonia. --> recommend ABX vanc/zosyn-->yvette/vanc --> as per id --> wbc 18-->9 --> smear has been reviewed 2. Anemia due to chronic disease v iron deficiency --> anemia panel ordered --> transfuse prn hgb goal >7 --> occult blood --> hgb 11-->7-->9.1-->7.8 --> 1 unit 02/21 3. Lactic acidemia. --> likely due to infection -> ivfs started as well 4. Tracheal bleeding. --> per surgery --> vent, improved 5. Chronic tracheostomy. 6. Chronic vent dependence. 7. Chronic G-tube. 8. Previous CVA. 9. Dvt ppx heparin sq Appreciate consultation and dW Rn Subjective Constitutional: Denies: no symptoms, chills, fever, malaise, weakness, other HEENT: Denies: no symptoms, eye pain, blurred vision, tearing, double vision, ear pain, ear discharge, nose pain, nose congestion, throat pain, throat swelling, mouth pain, mouth swelling, other Cardiovascular: Denies: no symptoms, chest pain, edema, irregular heart rate, lightheadedness, palpitations, syncope, other Respiratory: Denies: no symptoms, cough, shortness of breath, SOB with excertion, SOB at rest, sputum, wheezing, other Gastrointestinal/Abdominal: Denies: no symptoms, abdomen distended, abdominal pain, black stools, tarry stools, blood in stool, constipated, diarrhea, difficulty swallowing, nausea, poor appetite, poor fluid intake, rectal bleeding, vomiting, other Genitourinary: Denies: no symptoms, burning, discharge, frequency, flank pain, hematuria, incontinence, pain, urgency, other Neurologic/Psychiatric: Denies: no symptoms, anxiety, depressed, emotional problems, headache, numbness, paresthesia, pre-existing deficit, seizure, tingling, tremors, weakness, other Endocrine: Denies: no symptoms, excessive sweating, flushing, intolerance to cold, intolerance to heat, increased hunger, increased thirst, increased urine, unexplained weight gain, unexplained weight loss, other Allergies: Coded Allergies: No Known Allergies (Unverified , 02/11/20) Subjective 02/14 on vent, trach, no bleeding, labs are noted, jacinto rn 02/15 nonverbal, vent and gtube, no major events noted 02/16 nv, meds ntoed, vent, no bleeding, dw r 02/17 asleep, on vent, and gtube, labs noted, hgb 9.7 02/18 no events, no bleeding, no new labs 02/19 labs pending, meds noted, no bleeding 02/21 labs reviewed, hgb 7.8, no hemoptysis, meds reviewed Objective Objective Current Medications Medications (Trade) Dose Ordered Sig/Natalia Route PRN Reason Start Time Stop Time Status Last Admin Dose Admin Acetaminophen (Tylenol) 650 mg Q4H PRN GT Temp >100.5 02/11/20 13:30 03/12/20 13:29 Acetaminophen (Tylenol) 650 mg Q4H PRN GT Mild Pain (Pain Scale 1-3) 02/11/20 13:45 03/12/20 13:44 Ascorbic Acid (Vitamin C) 500 mg DAILY GT 02/17/20 09:00 03/18/20 08:59 02/21/20 08:57 Chlorhexidine Gluconate (Shirley-Hex 2%) 1 applic DAILY@1999 TOPIC 02/19/20 20:00 05/19/20 19:59 02/21/20 20:20 Diltiazem HCl (Cardizem Tab) 60 mg Q8HR GT 02/16/20 14:00 03/12/20 17:59 02/22/20 05:20 Heparin Sodium (Porcine) (Heparin 5000 units/ml) 5,000 units EVERY 12 HOURS SUBQ 02/12/20 21:00 03/28/20 20:59 02/21/20 20:22 Hydralazine HCl (Apresoline) 10 mg Q4H PRN IV BP over 160 syst 02/16/20 10:10 05/16/20 10:09 02/21/20 21:30 Levetiracetam (Keppra) 1,500 mg Q12HR GT 02/11/20 21:00 03/12/20 20:59 02/21/20 20:20 Levofloxacin (Levaquin) 750 mg DAILY GT 02/21/20 09:00 02/28/20 08:59 02/21/20 08:57 Lisinopril (ZestriL) 10 mg BID GT 02/19/20 10:45 03/18/20 09:44 02/21/20 17:54 Meropenem 1 gm/ Sodium Chloride 55 ml @ 110 mls/hr Q8HR IVPB 02/21/20 14:00 02/26/20 13:59 02/22/20 05:27 Pantoprazole (Protonix) 40 mg DAILY IVP 02/13/20 09:00 03/14/20 08:59 02/21/20 08:57 Vancomycin HCl (Vanco pharmacy to dose) 1 ea DAILY PRN MISC Per rx protocol 02/12/20 11:30 03/13/20 11:29 Vancomycin HCl 1 gm/Sodium Chloride 275 ml @ 183.708 mls/hr Q12H IVPB 02/21/20 12:00 02/26/20 11:59 02/22/20 00:28 Zinc Sulfate (Zinc Sulfate) 220 mg DAILY GT 02/17/20 09:00 02/27/20 08:59 02/21/20 08:58 Last 24 Hour Vital Signs Date Time Temp Pulse Resp B/P (MAP) Pulse Ox O2 Delivery O2 Flow Rate FiO2 02/22/20 05:20 66 137/84 02/22/20 05:15 56 12 40 02/22/20 04:00 Mechanical Ventilator 02/22/20 04:00 62 02/22/20 04:00 98.6 61 19 137/72 (93) 99 02/22/20 04:00 40 02/22/20 03:30 61 13 40 02/22/20 01:13 66 12 40 02/22/20 00:00 66 02/22/20 00:00 98.4 65 20 158/65 (96) 100 02/22/20 00:00 Mechanical Ventilator 02/21/20 23:20 65 12 40 02/21/20 21:30 79 180/79 02/21/20 21:30 180/79 02/21/20 20:43 67 12 40 02/21/20 20:00 70 02/21/20 20:00 Mechanical Ventilator 02/21/20 20:00 40 02/21/20 20:00 95.5 66 19 186/78 (114) 100 02/21/20 19:30 63 12 40 02/21/20 17:54 158/78 02/21/20 17:02 69 14 40 02/21/20 16:00 40 02/21/20 16:00 Mechanical Ventilator 02/21/20 16:00 99.5 73 20 158/78 (104) 100 02/21/20 16:00 64 02/21/20 15:13 70 13 40 02/21/20 15:01 73 167/76 02/21/20 14:17 73 15 98 Mechanical Ventilator 40 02/21/20 13:32 65 15 40 02/21/20 12:00 Mechanical Ventilator 02/21/20 12:00 40 02/21/20 12:00 60 02/21/20 12:00 97.8 64 20 167/76 (106) 98 02/21/20 11:34 66 12 40 02/21/20 09:15 57 12 40 02/21/20 08:57 153/76 02/21/20 08:00 Mechanical Ventilator 02/21/20 08:00 40 02/21/20 08:00 97.6 74 19 153/76 (101) 96 02/21/20 08:00 63 02/21/20 07:35 67 16 40 02/21/20 05:15 59 158/67 02/21/20 05:04 64 15 40 02/21/20 04:00 97.0 58 14 158/67 (97) 98 02/21/20 04:00 Mechanical Ventilator 02/21/20 04:00 40 02/21/20 04:00 55 02/21/20 02:36 60 13 40 02/21/20 00:43 62 14 40 02/21/20 00:00 Mechanical Ventilator 02/21/20 00:00 98.4 62 14 139/64 (89) 100 02/21/20 00:00 60 02/20/20 22:42 61 13 40 02/20/20 21:10 67 161/67 02/20/20 20:40 62 12 40 02/20/20 20:00 Mechanical Ventilator 02/20/20 20:00 98.2 64 14 146/79 (101) 99 02/20/20 20:00 40 02/20/20 20:00 61 02/20/20 18:40 66 14 40 02/20/20 18:12 184/91 02/20/20 17:20 65 14 40 02/20/20 16:00 98.4 82 18 118/82 (94) 100 02/20/20 16:00 40 02/20/20 16:00 Mechanical Ventilator 02/20/20 16:00 64 02/20/20 15:20 79 15 40 02/20/20 14:29 77 162/89 02/20/20 13:00 80 15 40 02/20/20 12:00 Mechanical Ventilator 02/20/20 12:00 97.9 75 17 155/65 (95) 100 02/20/20 12:00 72 02/20/20 12:00 40 02/20/20 11:10 73 14 40 02/20/20 09:32 169/79 02/20/20 09:10 83 17 40 02/20/20 08:00 40 02/20/20 08:00 69 02/20/20 08:00 Mechanical Ventilator 02/20/20 08:00 97.9 75 18 169/79 (109) 100 02/20/20 07:20 71 15 40 Intake and Output 02/21/20 02/22/20 19:00 07:00 Intake Total 375 ml 1200.000 ml Balance 375 ml 1200.000 ml Intake Free Water 100 ml 100 ml IV Total 495.000 ml Tube Feeding 275 ml 605 ml # Bowel Movements 1 Labs Test 02/19/20 11:00 02/20/20 03:20 02/21/20 03:30 02/22/20 04:00 Vancomycin Level Trough 18.1 ug/mL (5.0-12.0) Sodium Level 145 MMOL/L (136-145) 144 MMOL/L (136-145) Potassium Level 3.9 MMOL/L (3.5-5.1) 3.6 MMOL/L (3.5-5.1) Chloride Level 108 MMOL/L (98-107) 111 MMOL/L (98-107) Carbon Dioxide Level 37 MMOL/L (21-32) 32 MMOL/L (21-32) Anion Gap 0 mmol/L (5-15) 1 mmol/L (5-15) Blood Urea Nitrogen 16 mg/dL (7-18) 16 mg/dL (7-18) Creatinine 0.7 MG/DL (0.55-1.30) 0.6 MG/DL (0.55-1.30) Estimat Glomerular Filtration Rate > 60 mL/min (>60) > 60 mL/min (>60) Glucose Level 111 MG/DL (74-106) 91 MG/DL (74-106) Calcium Level 8.3 MG/DL (8.5-10.1) 7.2 MG/DL (8.5-10.1) Phosphorus Level 2.1 MG/DL (2.5-4.9) 2.0 MG/DL (2.5-4.9) Magnesium Level 1.9 MG/DL (1.8-2.4) 1.9 MG/DL (1.8-2.4) Total Bilirubin 1.6 MG/DL (0.2-1.0) 1.1 MG/DL (0.2-1.0) Direct Bilirubin 1.1 MG/DL (0.0-0.3) 0.7 MG/DL (0.0-0.3) Aspartate Amino Transf (AST/SGOT) 38 U/L (15-37) 37 U/L (15-37) Alanine Aminotransferase (ALT/SGPT) 15 U/L (12-78) 20 U/L (12-78) Alkaline Phosphatase 54 U/L (46-116) 49 U/L (46-116) Total Protein 6.3 G/DL (6.4-8.2) 5.3 G/DL (6.4-8.2) Albumin 2.0 G/DL (3.4-5.0) 1.7 G/DL (3.4-5.0) Globulin 4.3 g/dL 3.6 g/dL Albumin/Globulin Ratio 0.5 (1.0-2.7) 0.5 (1.0-2.7) White Blood Count 7.2 K/UL (4.8-10.8) 7.0 K/UL (4.8-10.8) Red Blood Count 3.00 M/UL (4.70-6.10) 2.52 M/UL (4.70-6.10) Hemoglobin 9.4 G/DL (14.2-18.0) 7.8 G/DL (14.2-18.0) Hematocrit 32.1 % (42.0-52.0) 26.9 % (42.0-52.0) Mean Corpuscular Volume 107 FL (80-99) 107 FL (80-99) Mean Corpuscular Hemoglobin 31.4 PG (27.0-31.0) 31.1 PG (27.0-31.0) Mean Corpuscular Hemoglobin Concent 29.4 G/DL (32.0-36.0) 29.1 G/DL (32.0-36.0) Red Cell Distribution Width 18.4 % (11.6-14.8) 18.0 % (11.6-14.8) Platelet Count 190 K/UL (150-450) 180 K/UL (150-450) Mean Platelet Volume 6.7 FL (6.5-10.1) 6.7 FL (6.5-10.1) Neutrophils (%) (Auto) 64.5 % (45.0-75.0) % (45.0-75.0) Lymphocytes (%) (Auto) 12.4 % (20.0-45.0) % (20.0-45.0) Monocytes (%) (Auto) 4.2 % (1.0-10.0) % (1.0-10.0) Eosinophils (%) (Auto) 18.2 % (0.0-3.0) % (0.0-3.0) Basophils (%) (Auto) 0.7 % (0.0-2.0) % (0.0-2.0) Height (Feet): 5 Height (Inches): 8.00 Weight (Pounds): 212 Objective Physical Exam General appearance: alert, no distress, appears stated age HEENT: Normocephalic, Teeth and gums normal trach + Lungs: clear to auscultation bilaterally Heart: regular rate and rhythm, S1, S2 normal, no murmur, click, rub or gallop Abdomen: soft, non-tender. Bowel sounds normal. No masses, ++ feeding tube Extremities: extremities normal, atraumatic, no cyanosis or edema Pulses: 2+ and symmetric Skin: Skin color, texture, turgor normal. No rashes or lesions Neurologic: Grossly normal Bryce Edgar MD Feb 22, 2020 06:56
--- NOTE | 2020-02-22 07:00 | NUR ---
NURSE HAND-OFF REPORT: Important Events on Shift: hgb-7.8, with Discharge order waiting for authorization Patient Status: Hgb is trending down, no active bleeding Diet: Glucerna 1.5 @55cc/ hr Pending Orders: None Pending Results/Labs: None Pending notification: none Latest Vital Signs: Temperature 98.6 , Pulse 66 , B/P 137 /84 , Respiratory Rate 12 , O2 SAT 99 , Mechanical Ventilator, O2 Flow Rate 5.0 . Vital Sign Comment: WNL EKG Rhythm: Sinus Rhythm Rhythm change?: N MD Notified?: José Miguel Barry MD Response: Latest Wall Fall Score: 70 Fall Risk: High Risk Safety Measures: Call light Within Reach, Bed Alarm Zone 3, Side Rails Side Rails x3, Bed position Low and Locked. Fall Precautions: Yellow Socks Yellow Gown Door Sign Patient Fall Education Report given to [LISSA Mendieta].
--- NOTE | 2020-02-22 07:30 | NUR ---
NURSE NOTES: Received report from LISSA James. The patient is resting on the bed without acute distress or shortness of breath. The patient is obtunded, opening eyes spontaneously but not tracking. Communication made by facial expression and body movement. SR w/ HR of 60s on the groundwater monitoring technician. The patient had episode of Afib w/ RVR and SB in the past and Dr. Barry was notified. The patient is trach'ed on the ventilator on following setting and oxygen saturation is 100%: Portex 7, AC 12, TV 500, FiO2 40%, and PEEP 5. The patient's GT intact and patent and running Glucerna 1.5 @ 55mL/hr per order. No residual noted. The patient has Johnson that is intact and patent and draining by gravity and adequate UOP noted based on the previous nurse report. Skin issue noted and dressing intact. The patient has DELBERT double lumen PICC line and R hand 22G PIVs, which are intact and patent. Per Princess ALCARAZ, Hgb dropped from 9.4 to 7.8, notified Dr. Edgar and received order for 1 unit pRBC transfusion. No s/s of bleeding noted at this time. Will follow up the lab and order. Will closely monitor the patient. Will continue plan of care. Addendum: 02/22/20 at 1504 by Mitul Aragon RN The patient's bed in the lowest position, call light in reach, and fall, aspiration, and seizure precaution reinforced.
--- NOTE | 2020-02-22 07:30 | NUR ---
NURSE HAND-OFF REPORT: Important Events on Shift: Admission. Pt on BIpap cont, NPO Patient Status: Stable Diet: NPO Pending Orders: None Pending Results/Labs: None Pending MD notification: None Latest Vital Signs: Temperature 98.6 , Pulse 66 , B/P 137 /84 , Respiratory Rate 12 , O2 SAT 99 , Mechanical Ventilator, O2 Flow Rate 5.0 . Vital Sign Comment: WNL EKG Rhythm: Sinus Rhythm Rhythm change?: N MD Notified?: José Miguel Barry MD Response: Latest Wall Fall Score: 70 Fall Risk: High Risk Safety Measures: Call light Within Reach, Bed Alarm Zone 3, Side Rails Side Rails x3, Bed position Low and Locked. Fall Precautions: Yellow Socks Yellow Gown Door Sign Patient Fall Education Report given to [Jasmine Wu RN]. Addendum: 02/22/20 at 0738 by Princess Gamal RN Disregard, wrong pt
[2020-02-22 08:00] VITALS: BP 158/94
--- NOTE | 2020-02-22 08:00 | NUR ---
NURSE NOTES: Dr. Donahue at the bedside assessed the patient. Dr. Donahue was notified regarding abnormal lab including Hgb drop from 9.[address] Edgar's order of 1 unit pRBC transfusion. Per Dr. Donahue, hold 1 unit pRBC transfusion as there is no s/s of bleeding. Repeat CBC to check accuracy. Will hold 1 unit pRBC transfusion until repeat CBC result comes out. Will closely monitor the patient. Will continue plan of care.
--- NOTE | 2020-02-22 08:19 | NUR ---
RD ASSESSMENT & RECOMMENDATIONS SEE CARE ACTIVITY FOR COMPLETE ASSESSMENT DAILY ESTIMATED NEEDS: Needs based on Critical care, wound/ 76kg abw 22-28 kcals/kg 2686-2150 total kcals 1.25-2 g protein/kg 95-152 g total protein 25-30 mL/kg 6649-0426 total fluid mLs NUTRITION DIAGNOSIS: * Swallowing difficulty R/T respiratory status as evidenced by trach/vent dep, PEG dep. * Increased kcal/prot/micronutrients needs R/T wound healing as evidenced by pt admitted w/ stage 3 R lateral ankle wound. CURRENT TF:Glucerna 1.5 @55 ENTERAL NUTRITION RECOMMENDATIONS: Glucerna 1.5 @ 55ml/hr x 24 hrs to provide 1320ml, 1980kcal, 109g prot, 1002ml free water * As medically appropriate, initiate Glucerna 1.5 @ 25ml/hr x 6hrs * Advance 10ml q 4-6 hrs as tolerated to goal rate * HOB over 30 degrees/ water flush per MD ADDITIONAL RECOMMENDATIONS: * Calibrated bedscale wt-> daily wts are variable. * Wound healing: TF rec @ goal provides 100% RDI add Vit C 500mg QD, ZnSO4 220mg QD x 10 days Yuriy BID via PEG w/ TF order * Monitor BGs, need for NISS-> good glycemic control * Lytes wnl, monitor need for repletion (Low Phos 2.0)
--- NOTE | 2020-02-22 08:30 | NUR ---
NURSE NOTES: Morning vital signs taken. Morning nursing assessment done. Will closely monitor the patient. Will continue plan of care.
[2020-02-22] MEDS: Heparin 5000 units/ml inj SUBQ SCH ×2 (09:00→20:34)
--- NOTE | 2020-02-22 09:03 | General Progress Note ---
Subjective ROS Limited/Unobtainable: No Allergies: Coded Allergies: No Known Allergies (Unverified , 02/11/20) Objective Last 24 Hour Vital Signs Date Time Temp Pulse Resp B/P (MAP) Pulse Ox O2 Delivery O2 Flow Rate FiO2 02/22/20 05:20 66 137/84 02/22/20 05:15 56 12 40 02/22/20 04:00 Mechanical Ventilator 02/22/20 04:00 62 02/22/20 04:00 98.6 61 19 137/72 (93) 99 02/22/20 04:00 40 02/22/20 03:30 61 13 40 02/22/20 01:13 66 12 40 02/22/20 00:00 66 02/22/20 00:00 98.4 65 20 158/65 (96) 100 02/22/20 00:00 Mechanical Ventilator 02/21/20 23:20 65 12 40 02/21/20 21:30 79 180/79 02/21/20 21:30 180/79 02/21/20 20:43 67 12 40 02/21/20 20:00 70 02/21/20 20:00 Mechanical Ventilator 02/21/20 20:00 40 02/21/20 20:00 95.5 66 19 186/78 (114) 100 02/21/20 19:30 63 12 40 02/21/20 17:54 158/78 02/21/20 17:02 69 14 40 02/21/20 16:00 40 02/21/20 16:00 Mechanical Ventilator 02/21/20 16:00 99.5 73 20 158/78 (104) 100 02/21/20 16:00 64 02/21/20 15:13 70 13 40 02/21/20 15:01 73 167/76 02/21/20 14:17 73 15 98 Mechanical Ventilator 40 02/21/20 13:32 65 15 40 02/21/20 12:00 Mechanical Ventilator 02/21/20 12:00 40 02/21/20 12:00 60 02/21/20 12:00 97.8 64 20 167/76 (106) 98 02/21/20 11:34 66 12 40 02/21/20 09:15 57 12 40 Intake and Output 02/21/20 02/22/20 19:00 07:00 Intake Total 375 ml 1200.000 ml Balance 375 ml 1200.000 ml Intake Free Water 100 ml 100 ml IV Total 495.000 ml Tube Feeding 275 ml 605 ml # Bowel Movements 1 Laboratory Tests 02/22/20 04:00: White Blood Count 7.0, Red Blood Count 2.52L, Hemoglobin 7.8L, Hematocrit 26.9L, Mean Corpuscular Volume 107H, Mean Corpuscular Hemoglobin 31.1H, Mean Corpuscular Hemoglobin Concent 29.1L, Red Cell Distribution Width 18.0H, Platelet Count 180, Mean Platelet Volume 6.7, Neutrophils (%) (Auto) , Lymphocytes (%) (Auto) , Monocytes (%) (Auto) , Eosinophils (%) (Auto) , Basophils (%) (Auto) , Differential Total Cells Counted 100, Neutrophils % (Manual) 76H, Lymphocytes % (Manual) 7L, Monocytes % (Manual) 5, Eosinophils % (Manual) 12H, Basophils % (Manual) 0, Band Neutrophils 0, Platelet Estimate Adequate, Platelet Morphology Normal, Hypochromasia 1+, Anisocytosis 1+, Macrocytosis 1+, Sodium Level 144, Potassium Level 3.6, Chloride Level 111H, Carbon Dioxide Level 32, Anion Gap 1L, Blood Urea Nitrogen 16, Creatinine 0.6, Estimat Glomerular Filtration Rate > 60, Glucose Level 91, Calcium Level 7.2L, Phosphorus Level 2.0L, Magnesium Level 1.9, Total Bilirubin 1.1H, Direct Bilirubin 0.7H, Aspartate Amino Transf (AST/SGOT) 37, Alanine Aminotransferase (ALT/SGPT) 20, Alkaline Phosphatase 49, Total Protein 5.3L, Albumin 1.7L, Globulin 3.6, Albumin/Globulin Ratio 0.5L Height (Feet): 5 Height (Inches): 8.00 Weight (Pounds): 212 General Appearance: lethargic EENT: normal ENT inspection Neck: supple Cardiovascular: normal rate Respiratory/Chest: decreased breath sounds Abdomen: hypoactive bowel sounds Extremities: non-tender Assessment/Plan Status: progressing Assessment/Plan: Assessment - Resp failure - s/p Trach and PEG - nodular liver - possible cirrhosis - elevated bili Recommendation - follow labs - elevated HOB - TF - check hepatitis serologies --> negative -drop in H&H without obvious bleed>> repeat cbc Velasquez Donahue MD Feb 22, 2020 09:03
[2020-02-22] MEDS: Lisinopril 10mg tab GT SCH (09:45)
[2020-02-22] MEDS: Ascorbic Acid 500mg tab GT SCH (09:45)
[2020-02-22] MEDS: Zinc Sulfate 220mg GT SCH (09:45)
[2020-02-22] MEDS: Levofloxacin 750mg tab GT SCH (09:45)
[2020-02-22] MEDS: levETIRAcetam 500mg/5ml Liquid GT SCH ×2 (09:45→20:29)
[2020-02-22] MEDS: Pantoprazole Inj IVP SCH (09:46)
[2020-02-22 09:49] LABS: BASOPHILS % (AUTO) 0.9 % (0.0-2.0); EOSINOPHILS % (AUTO) 16.6 % (0.0-3.0); HEMATOCRIT 31.6 % (42.0-52.0); HEMOGLOBIN 9.3 G/DL (14.2-18.0); LYMPHOCYTES % (AUTO) 10.5 % (20.0-45.0); MEAN CORPUSCULAR VOLUME 106 FL (80-99); MONOCYTES % (AUTO) 5.1 % (1.0-10.0); NEUTROPHILS % (AUTO) 66.8 % (45.0-75.0); PLATELET COUNT 179 K/UL (150-450); RED BLOOD COUNT 2.97 M/UL (4.70-6.10); RED CELL DISTRIBUTION WIDTH 17.7 % (11.6-14.8)
--- NOTE | 2020-02-22 10:00 | NUR ---
NURSE NOTES: Morning medications administered per order. The patient tolerated well. Held Heparin due to change in condition of hemoglobin drop from 9.4 to 7.8. Will closely monitor the patient. Will continue plan of care.
--- NOTE | 2020-02-22 10:30 | NUR ---
NURSE NOTES: Notified repeated CBC result to Dr. Donahue and Dr. Edgar. Per Dr. Donahue and Dr. Edgar, cancel 1 unit pRBC transfusion. Will carry out the order as soon as possible. Will continue plan of care.
--- NOTE | 2020-02-22 10:39 | Pulmonology Progress Note ---
Subjective ROS Limited/Unobtainable: No Interval Events: None new Constitutional: Denies: fever HEENT: Repors: no symptoms Respiratory: Reports: no symptoms Cardiovascular: Reports: no symptoms Gastrointestinal/Abdominal: Reports: other - NPO Allergies: Coded Allergies: No Known Allergies (Unverified , 02/11/20) Objective Last 24 Hour Vital Signs Date Time Temp Pulse Resp B/P (MAP) Pulse Ox O2 Delivery O2 Flow Rate FiO2 02/22/20 09:45 158/94 02/22/20 09:00 64 13 40 02/22/20 08:00 59 02/22/20 05:20 66 137/84 02/22/20 05:15 56 12 40 02/22/20 04:00 Mechanical Ventilator 02/22/20 04:00 62 02/22/20 04:00 98.6 61 19 137/72 (93) 99 02/22/20 04:00 40 02/22/20 03:30 61 13 40 02/22/20 01:13 66 12 40 02/22/20 00:00 66 02/22/20 00:00 98.4 65 20 158/65 (96) 100 02/22/20 00:00 Mechanical Ventilator 02/21/20 23:20 65 12 40 02/21/20 21:30 79 180/79 02/21/20 21:30 180/79 02/21/20 20:43 67 12 40 02/21/20 20:00 70 02/21/20 20:00 Mechanical Ventilator 02/21/20 20:00 40 02/21/20 20:00 95.5 66 19 186/78 (114) 100 02/21/20 19:30 63 12 40 02/21/20 17:54 158/78 02/21/20 17:02 69 14 40 02/21/20 16:00 40 02/21/20 16:00 Mechanical Ventilator 02/21/20 16:00 99.5 73 20 158/78 (104) 100 02/21/20 16:00 64 02/21/20 15:13 70 13 40 02/21/20 15:01 73 167/76 02/21/20 14:17 73 15 98 Mechanical Ventilator 40 02/21/20 13:32 65 15 40 02/21/20 12:00 Mechanical Ventilator 02/21/20 12:00 40 02/21/20 12:00 60 02/21/20 12:00 97.8 64 20 167/76 (106) 98 02/21/20 11:34 66 12 40 Intake and Output 02/21/20 02/22/20 19:00 07:00 Intake Total 375 ml 1200.000 ml Balance 375 ml 1200.000 ml Intake Free Water 100 ml 100 ml IV Total 495.000 ml Tube Feeding 275 ml 605 ml # Bowel Movements 1 General Appearance: no acute distress HEENT: normocephalic Respiratory: chest wall non-tender, lungs clear Cardiovascular: normal peripheral pulses Abdomen: normal bowel sounds Laboratory Tests 02/22/20 04:00: White Blood Count 7.0, Red Blood Count 2.52L, Hemoglobin 7.8L, Hematocrit 26.9L, Mean Corpuscular Volume 107H, Mean Corpuscular Hemoglobin 31.1H, Mean Corpuscular Hemoglobin Concent 29.1L, Red Cell Distribution Width 18.0H, Platelet Count 180, Mean Platelet Volume 6.7, Neutrophils (%) (Auto) , Lymphocyt es (%) (Auto) , Monocytes (%) (Auto) , Eosinophils (%) (Auto) , Basophils (%) (Auto) , Differential Total Cells Counted 100, Neutrophils % (Manual) 76H, Lymphocytes % (Manual) 7L, Monocytes % (Manual) 5, Eosinophils % (Manual) 12H, Basophils % (Manual) 0, Band Neutrophils 0, Platelet Estimate Adequate, Platelet Morphology Normal, Hypochromasia 1+, Anisocytosis 1+, Macrocytosis 1+, Sodium Level 144, Potassium Level 3.6, Chloride Level 111H, Carbon Dioxide Level 32, Anion Gap 1L, Blood Urea Nitrogen 16, Creatinine 0.6, Estimat Glomerular Filtration Rate > 60, Glucose Level 91, Calcium Level 7.2L, Phosphorus Level 2.0L, Magnesium Level 1.9, Total Bilirubin 1.1H, Direct Bilirubin 0.7H, Aspartate Amino Transf (AST/SGOT) 37, Alanine Aminotransferase (ALT/SGPT) 20, Alkaline Phosphatase 49, Total Protein 5.3L, Albumin 1.7L, Globulin 3.6, Albumin/Globulin Ratio 0.5L 02/22/20 08:55: White Blood Count 7.0, Red Blood Count 2.97L, Hemoglobin 9.3L, Hematocrit 31.6L, Mean Corpuscular Volume 106H, Mean Corpuscular Hemoglobin 31.2H, Mean Co rpuscular Hemoglobin Concent 29.3L, Red Cell Distribution Width 17.7H, Platelet Count 179, Mean Platelet Volume 7.1, Neutrophils (%) (Auto) 66.8, Lymphocytes (%) (Auto) 10.5L, Monocytes (%) (Auto) 5.1, Eosinophils (%) (Auto) 16.6H, Basophils (%) (Auto) 0.9 Current Medications Medications (Trade) Dose Ordered Sig/Natalia Route PRN Reason Start Time Stop Time Status Last Admin Dose Admin Acetaminophen (Tylenol) 650 mg Q4H PRN GT Temp >100.5 02/11/20 13:30 03/12/20 13:29 Acetaminophen (Tylenol) 650 mg Q4H PRN GT Mild Pain (Pain Scale 1-3) 02/11/20 13:45 03/12/20 13:44 02/22/20 09:59 Ascorbic Acid (Vitamin C) 500 mg DAILY GT 02/17/20 09:00 03/18/20 08:59 02/22/20 09:45 Chlorhexidine Gluconate (Shirley-Hex 2%) 1 applic DAILY@2000 TOPIC 02/19/20 20:00 05/19/20 19:59 02/21/20 20:20 Diltiazem HCl (Cardizem Tab) 60 mg Q8HR GT 02/16/20 14:00 03/12/20 17:59 02/22/20 05:20 Heparin Sodium (Porcine) (Heparin 5000 units/ml) 5,000 units EVERY 12 HOURS SUBQ 02/12/20 21:00 03/28/20 20:59 02/21/20 20:22 Hydralazine HCl (Apresoline) 10 mg Q4H PRN IV BP over 160 syst 02/16/20 10:10 05/16/20 10:09 02/21/20 21:30 Levetiracetam (Keppra) 1,500 mg Q12HR GT 02/11/20 21:00 03/12/20 20:59 02/22/20 09:45 Levofloxacin (Levaquin) 750 mg DAILY GT 02/21/20 09:00 02/28/20 08:59 02/22/20 09:45 Lisinopril (ZestriL) 10 mg BID GT 02/19/20 10:45 03/18/20 09:44 02/22/20 09:45 Meropenem 1 gm/ Sodium Chloride 55 ml @ 110 mls/hr Q8HR IVPB 02/21/20 14:00 02/26/20 13:59 02/22/20 05:27 Pantoprazole (Protonix) 40 mg DAILY IVP 02/13/20 09:00 03/14/20 08:59 02/22/20 09:46 Vancomycin HCl (Vanco pharmacy to dose) 1 ea DAILY PRN MISC Per rx protocol 02/12/20 11:30 03/13/20 11:29 Vancomycin HCl 1 gm/Sodium Chloride 275 ml @ 183.708 mls/hr Q12H IVPB 02/21/20 12:00 02/26/20 11:59 02/22/20 00:28 Zinc Sulfate (Zinc Sulfate) 220 mg DAILY GT 02/17/20 09:00 02/27/20 08:59 02/22/20 09:45 Assessment/Plan Assessment/Plan IMPRESSION: 1. Bilateral lung pneumonia (HCAP) with pseudomonas/stenotrophomonas 2. Leukocytosis. Resolved 3. Lactic acidemia. 4. Endo-tracheal bleeding/hemoptysis... Hgb stable post-transfusion 5. Chronic tracheostomy. 6. Chronic vent dependence. 7. Chronic G-tube. 8. Previous CVA. DISCUSSION: Continue broad-spectrum antibiotics. Oxygen and pulmonary hygiene. Tracheostomy site is clean CT chest confirms dense bilateral pneumonia Micro - stentotrophomonas/pseudomonas I will follow carefully. DVT and GI prophylaxes. PICC line in place OK to dc back to SNF Will need IV abx (Meropenem) Rylan Otero M.D. Rylan Otero MD Feb 22, 2020 10:39
[2020-02-22 12:00] VITALS: BP 151/74
--- NOTE | 2020-02-22 12:30 | NUR ---
NURSE NOTES: Hydralazine IVP administered per PRN order due to elevated blood pressure. Will closely monitor the patient. Will continue plan of care.
--- NOTE | 2020-02-22 13:22 | NUR ---
CASE MANAGEMENT:REVIEW SI;SEPSIS. BILATERAL PNA. 95.5 70 19 186/78 100% TRACH/VENT FIO2 40% H/H 9.3/31.6 CA 7.2 PHOS 2.0 T-BILI 1.1 D-BILI 0.7 ALB 1.7 IS;MEROPENEM IV Q8 VANCOMYCIN IV Q12 LEVAQUIN GT QD ZESTRIL GT BID DILTIAZEM GT Q8 KEPPRA GT Q12 MINISTERIO STATUS DCP;FROM [facility] PLAN; DC TO SNF PENDING AUTH FORM BX MCAL
--- NOTE | 2020-02-22 13:30 | NUR ---
NURSE NOTES: Dr. Longoria at the bedside assessed the patient. Notified abnormal lab including Hgb and Phos and elevated blood pressure trend. Dr. Longoria will order. Will closely monitor the patient. Will continue plan of care.
--- NOTE | 2020-02-22 13:39 | General Progress Note ---
Subjective ROS Limited/Unobtainable: Yes Allergies: Coded Allergies: No Known Allergies (Unverified , 02/11/20) Objective Last 24 Hour Vital Signs Date Time Temp Pulse Resp B/P (MAP) Pulse Ox O2 Delivery O2 Flow Rate FiO2 02/22/20 12:21 171/81 02/22/20 12:00 60 02/22/20 11:30 68 14 40 02/22/20 09:45 158/94 02/22/20 09:00 64 13 40 02/22/20 08:00 59 02/22/20 08:00 Mechanical Ventilator 02/22/20 08:00 40 02/22/20 08:00 99.0 70 12 158/94 (115) 100 02/22/20 05:20 66 137/84 02/22/20 05:15 56 12 40 02/22/20 04:00 Mechanical Ventilator 02/22/20 04:00 62 02/22/20 04:00 98.6 61 19 137/72 (93) 99 02/22/20 04:00 40 02/22/20 03:30 61 13 40 02/22/20 01:13 66 12 40 02/22/20 00:00 66 02/22/20 00:00 98.4 65 20 158/65 (96) 100 02/22/20 00:00 Mechanical Ventilator 02/21/20 23:20 65 12 40 02/21/20 21:30 79 180/79 02/21/20 21:30 180/79 02/21/20 20:43 67 12 40 02/21/20 20:00 70 02/21/20 20:00 Mechanical Ventilator 02/21/20 20:00 40 02/21/20 20:00 95.5 66 19 186/78 (114) 100 02/21/20 19:30 63 12 40 02/21/20 17:54 158/78 02/21/20 17:02 69 14 40 02/21/20 16:00 40 02/21/20 16:00 Mechanical Ventilator 02/21/20 16:00 99.5 73 20 158/78 (104) 100 02/21/20 16:00 64 02/21/20 15:13 70 13 40 02/21/20 15:01 73 167/76 02/21/20 14:17 73 15 98 Mechanical Ventilator 40 l Intake and Output 02/21/20 02/22/20 19:00 07:00 Intake Total 375 ml 1200.000 ml Balance 375 ml 1200.000 ml Intake Free Water 100 ml 100 ml IV Total 495.000 ml Tube Feeding 275 ml 605 ml # Bowel Movements 1 Laboratory Tests 02/22/20 04:00: White Blood Count 7.0, Red Blood Count 2.52L, Hemoglobin 7.8L, Hematocrit 26.9L, Mean Corpuscular Volume 107H, Mean Corpuscular Hemoglobin 31.1H, Mean Corpuscular Hemoglobin Concent 29.1L, Red Cell Distribution Width 18.0H, Platelet Count 180, Mean Platelet Volume 6.7, Neutrophils (%) (Auto) , Lymphocytes (%) (Auto) , Monocytes (%) (Auto) , Eosinophils (%) (Auto) , Basophils (%) (Auto) , Differential Total Cells Counted 100, Neutrophils % (Manual) 76H, Lymphocytes % (Manual) 7L, Monocytes % (Manual) 5, Eosinophils % (Manual) 12H, Basophils % (Manual) 0, Band Neutrophils 0, Platelet Estimate Adequate, Platelet Morphology Normal, Hypochromasia 1+, Anisocytosis 1+, Macrocytosis 1+, Sodium Level 144, Potassium Level 3.6, Chloride Level 111H, Carbon Dioxide Level 32, Anion Gap 1L, Blood Urea Nitrogen 16, Creatinine 0.6, Estimat Glomerular Filtration Rate > 60, Glucose Level 91, Calcium Level 7.2L, Phosphorus Level 2.0L, Magnesium Level 1.9, Total Bilirubin 1.1H, Direct Bilirubin 0.7H, Aspartate Amino Transf (AST/SGOT) 37, Alanine Aminotransferase (ALT/SGPT) 20, Alkaline Phosphatase 49, Total Protein 5.3L, Albumin 1.7L, Globulin 3.6, Albumin/Globulin Ratio 0.5L 02/22/20 08:55: White Blood Count 7.0, Red Blood Count 2.97L, Hemoglobin 9.3L, Hematocrit 31.6L, Mean Corpuscular Volume 106H, Mean Corpuscular Hemoglobin 31.2H, Mean Cor puscular Hemoglobin Concent 29.3L, Red Cell Distribution Width 17.7H, Platelet Count 179, Mean Platelet Volume 7.1, Neutrophils (%) (Auto) 66.8, Lymphocytes (%) (Auto) 10.5L, Monocytes (%) (Auto) 5.1, Eosinophils (%) (Auto) 16.6H, Basophils (%) (Auto) 0.9 Height (Feet): 5 Height (Inches): 8.00 Weight (Pounds): 212 Assessment/Plan Problem List: (1) Sepsis ICD Codes: A41.9 - Sepsis, unspecified organism SNOMED: 29553111 Qualifiers: Qualified Codes: A41.9 - Sepsis, unspecified organism; R65.20 - Severe sepsis without septic shock; J96.01 - Acute respiratory failure with hypoxia (2) Aspiration pneumonia ICD Codes: J69.0 - Pneumonitis due to inhalation of food and vomit SNOMED: 630364656 Qualifiers: Qualified Codes: J69.0 - Pneumonitis due to inhalation of food and vomit (3) Tracheostomy complication ICD Codes: J95.00 - Unspecified tracheostomy complication SNOMED: 45248294 Qualifiers: Qualified Codes: J95.00 - Unspecified tracheostomy complication (4) Tracheostomy malfunction ICD Codes: J95.03 - Malfunction of tracheostomy stoma SNOMED: 961894671 Status: progressing Assessment/Plan: sepsis improved pna improved pending placement abx per id afebrile Oral Crawford MD Feb 22, 2020 13:39
--- NOTE | 2020-02-22 13:51 | Nephrology Progress Note ---
Assessment/Plan Problem List: (1) Electrolyte imbalance (2) HTN (hypertension) (3) Aspiration pneumonia (4) Tracheostomy complication (5) Anemia (6) Chronic respiratory failure Assessment Electrolyte imbalance, hypokalemia Normal BUN/creatinine Sepsis leukocytosis tachycardia with left-sided pneumonia Tracheostomy complication with bleeding Anemia Ventilator dependent respiratory failure Atrial fibrillation PEG Plan February 21: Labs reviewed. Lisinopril dose increased for better BP control. Phosphorus supplement intravenously ordered. Continue per consultants. February 20: No labs drawn today. Will order labs tomorrow. Clinically stable. Continue per consultants. Remains full code. February 19: Labs reviewed. Phosphorus supplement ordered. Continue per consultants. February 18: No chemistry panel done today. Stable from renal standpoint of view. February 17: Labs reviewed. Abnormal electrolytes addressed. Blood pressure medication adjusted. Continue as is. February 16: Potassium supplement, phosphorus, magnesium supplement as needed. Monitor electrolytes and chemistries. Discontinued IV fluid. Adjust blood pressure medication, Zestril added and 1 dose of Lasix 20 mg given Subjective ROS Limited/Unobtainable: Yes Objective Objective Last 24 Hour Vital Signs Date Time Temp Pulse Resp B/P (MAP) Pulse Ox O2 Delivery O2 Flow Rate FiO2 02/22/20 13:38 72 147/69 02/22/20 12:21 171/81 02/22/20 12:00 60 02/22/20 11:30 68 14 40 02/22/20 09:45 158/94 02/22/20 09:00 64 13 40 02/22/20 08:00 59 02/22/20 08:00 Mechanical Ventilator 02/22/20 08:00 40 02/22/20 08:00 99.0 70 12 158/94 (115) 100 02/22/20 05:20 66 137/84 02/22/20 05:15 56 12 40 02/22/20 04:00 Mechanical Ventilator 02/22/20 04:00 62 02/22/20 04:00 98.6 61 19 137/72 (93) 99 02/22/20 04:00 40 02/22/20 03:30 61 13 40 02/22/20 01:13 66 12 40 02/22/20 00:00 66 02/22/20 00:00 98.4 65 20 158/65 (96) 100 02/22/20 00:00 Mechanical Ventilator 02/21/20 23:20 65 12 40 02/21/20 21:30 79 180/79 02/21/20 21:30 180/79 02/21/20 20:43 67 12 40 02/21/20 20:00 70 02/21/20 20:00 Mechanical Ventilator 02/21/20 20:00 40 02/21/20 20:00 95.5 66 19 186/78 (114) 100 02/21/20 19:30 63 12 40 02/21/20 17:54 158/78 02/21/20 17:02 69 14 40 02/21/20 16:00 40 02/21/20 16:00 Mechanical Ventilator 02/21/20 16:00 99.5 73 20 158/78 (104) 100 02/21/20 16:00 64 02/21/20 15:13 70 13 40 02/21/20 15:01 73 167/76 02/21/20 14:17 73 15 98 Mechanical Ventilator 40 Intake and Output 02/21/20 02/22/20 19:00 07:00 Intake Total 375 ml 1200.000 ml Balance 375 ml 1200.000 ml Intake Free Water 100 ml 100 ml IV Total 495.000 ml Tube Feeding 275 ml 605 ml # Bowel Movements 1 Laboratory Tests 02/22/20 04:00: White Blood Count 7.0, Red Blood Count 2.52L, Hemoglobin 7.8L, Hematocrit 26.9L, Mean Corpuscular Volume 107H, Mean Corpuscular Hemoglobin 31.1H, Mean Corpuscular Hemoglobin Concent 29.1L, Red Cell Distribution Width 18.0H, Platelet Count 180, Mean Platelet Volume 6.7, Neutrophils (%) (Auto) , Lymphocytes (%) (Auto) , Monocytes (%) (Auto) , Eosinophils (%) (Auto) , Basophils (%) (Auto) , Differential Total Cells Counted 100, Neutrophils % (Manual) 76H, Lymphocytes % (Manual) 7L, Monocytes % (Manual) 5, Eosinophils % (Manual) 12H, Basophils % (Manual) 0, Band Neutrophils 0, Platelet Estimate Adequate, Platelet Morphology Normal, Hypochromasia 1+, Anisocytosis 1+, Macrocytosis 1+, Sodium Level 144, Potassium Level 3.6, Chloride Level 111H, Carbon Dioxide Level 32, Anion Gap 1L, Blood Urea Nitrogen 16, Creatinine 0.6, Estimat Glomerular Filtration Rate > 60, Glucose Level 91, Calcium Level 7.2L, Phosphorus Level 2.0L, Magnesium Level 1.9, Total Bilirubin 1.1H, Direct Bilirubin 0.7H, Aspartate Amino Transf (AST/SGOT) 37, Alanine Aminotransferase (ALT/SGPT) 20, Alkaline Phosphatase 49, Total Protein 5.3L, Albumin 1.7L, Globulin 3.6, Albumin/Globulin Ratio 0.5L 02/22/20 08:55: White Blood Count 7.0, Red Blood Count 2.97L, Hemoglobin 9.3L, Hematocrit 31.6L, Mean Corpuscular Volume 106H, Mean Corpuscular Hemoglobin 31.2H, Mean Corpuscular Hemoglobin Concent 29.3L, Red Cell Distribution Width 17.7H, Platelet Count 179, Mean Platelet Volume 7.1, Neutrophils (%) (Auto) 66.8, Lymphocytes (%) (Auto) 10.5L, Monocytes (%) (Auto) 5.1, Eosinophils (%) (Auto) 16.6H, Basophils (%) (Auto) 0.9 Height (Feet): 5 Height (Inches): 8.00 Weight (Pounds): 212 General Appearance: no apparent distress EENT: other - Trach to vent Cardiovascular: normal rate Respiratory/Chest: decreased breath sounds Abdomen: distended Tano Longoria MD Feb 22, 2020 13:51
[2020-02-22] MEDS ORDERED: Potassium Phosphate 20 MM in NS 275 ML IV ONE (14:30)
--- NOTE | 2020-02-22 15:00 | NUR ---
NURSE NOTES: The patient is resting on the bed comfortably without acute distress or shortness of breath. Tolerating vent setting and tube feeding well. Will closely monitor the patient. Will continue plan of care.
[2020-02-22] MEDS ORDERED: Tubing IV Secondary IV ONE ×2 (15:14→15:20)
[2020-02-22] MEDS ORDERED: NS 275ml ONE ×2 (15:14→15:20)
[2020-02-22 16:00] VITALS: BP 150/80
--- NOTE | 2020-02-22 17:00 | NUR ---
NURSE NOTES: Bed bath given to the patient. Tolerated well. Large loose BM noted. Will closely monitor the patient. Will continue plan of care.
[2020-02-22] MEDS: Lisinopril 20mg tab GT SCH (17:14)
--- NOTE | 2020-02-22 17:14 | Cardiac Electrophysiology PN ---
Assessment/Plan Assessment/Plan 1. Atrial fibrillation with rapid ventricular response. On Cardizem 60 mg tid Off anticoagulation for tracheal bleed. In SR with first degree AVB 2. Accelerated hypertension. On Cardizem 60 tid and Lisinopril increased to 20 bid 3. Bleeding from the trach site. Further evaluation by Surgery. S/P PRBC 4. Ventilator-respiratory failure. Further evaluation by Dr. Otero. 5. Dysphagia, status post PEG placement. 6. Elevated white count and sepsis, on IV antibiotic. DW RN Subjective Subjective Fio2 40% and PEEP 5. No more tracheal bleed. DC to [facility] pending sons visit today from [place] BP was in 180s and Lisinopril increased to 20 bid. At times rizwana in high 50s on Cardizem Objective Last 24 Hour Vital Signs Date Time Temp Pulse Resp B/P (MAP) Pulse Ox O2 Delivery O2 Flow Rate FiO2 02/22/20 15:00 61 12 40 02/22/20 13:38 72 147/69 02/22/20 13:00 68 15 40 02/22/20 12:21 171/81 02/22/20 12:00 40 02/22/20 12:00 Mechanical Ventilator 02/22/20 12:00 60 02/22/20 12:00 98.5 69 12 151/74 (99) 100 02/22/20 11:30 68 14 40 02/22/20 09:45 158/94 02/22/20 09:00 64 13 40 02/22/20 08:00 59 02/22/20 08:00 Mechanical Ventilator 02/22/20 08:00 40 02/22/20 08:00 99.0 70 12 158/94 (115) 100 02/22/20 06:40 62 12 40 02/22/20 05:20 66 137/84 02/22/20 05:15 56 12 40 02/22/20 04:00 Mechanical Ventilator 02/22/20 04:00 62 02/22/20 04:00 98.6 61 19 137/72 (93) 99 02/22/20 04:00 40 02/22/20 03:30 61 13 40 02/22/20 01:13 66 12 40 02/22/20 00:00 66 02/22/20 00:00 98.4 65 20 158/65 (96) 100 02/22/20 00:00 Mechanical Ventilator 02/21/20 23:20 65 12 40 02/21/20 21:30 79 180/79 02/21/20 21:30 180/79 02/21/20 20:43 67 12 40 02/21/20 20:00 70 02/21/20 20:00 Mechanical Ventilator 02/21/20 20:00 40 02/21/20 20:00 95.5 66 19 186/78 (114) 100 02/21/20 19:30 63 12 40 02/21/20 17:54 158/78 Intake and Output 02/21/20 02/22/20 19:00 07:00 Intake Total 375 ml 1200.000 ml Balance 375 ml 1200.000 ml Intake Free Water 100 ml 100 ml IV Total 495.000 ml Tube Feeding 275 ml 605 ml # Bowel Movements 1 Laboratory Tests Test 02/22/20 04:00 02/22/20 08:55 White Blood Count 7.0 K/UL (4.8-10.8) 7.0 K/UL (4.8-10.8) Red Blood Count 2.52 M/UL (4.70-6.10) L 2.97 M/UL (4.70-6.10) L Hemoglobin 7.8 G/DL (14.2-18.0) L 9.3 G/DL (14.2-18.0) L Hematocrit 26.9 % (42.0-52.0) L 31.6 % (42.0-52.0) L Mean Corpuscular Volume 107 FL (80-99) H 106 FL (80-99) H Mean Corpuscular Hemoglobin 31.1 PG (27.0-31.0) H 31.2 PG (27.0-31.0) H Mean Corpuscular Hemoglobin Concent 29.1 G/DL (32.0-36.0) L 29.3 G/DL (32.0-36.0) L Red Cell Distribution Width 18.0 % (11.6-14.8) H 17.7 % (11.6-14.8) H Platelet Count 180 K/UL (150-450) 179 K/UL (150-450) Mean Platelet Volume 6.7 FL (6.5-10.1) 7.1 FL (6.5-10.1) Neutrophils (%) (Auto) % (45.0-75.0) 66.8 % (45.0-75.0) Lymphocytes (%) (Auto) % (20.0-45.0) 10.5 % (20.0-45.0) L Monocytes (%) (Auto) % (1.0-10.0) 5.1 % (1.0-10.0) Eosinophils (%) (Auto) % (0.0-3.0) 16.6 % (0.0-3.0) H Basophils (%) (Auto) % (0.0-2.0) 0.9 % (0.0-2.0) Differential Total Cells Counted 100 Neutrophils % (Manual) 76 % (45-75) H Lymphocytes % (Manual) 7 % (20-45) L Monocytes % (Manual) 5 % (1-10) Eosinophils % (Manual) 12 % (0-3) H Basophils % (Manual) 0 % (0-2) Band Neutrophils 0 % (0-8) Platelet Estimate Adequate Platelet Morphology Normal Hypochromasia 1+ Anisocytosis 1+ Macrocytosis 1+ Sodium Level 144 MMOL/L (136-145) Potassium Level 3.6 MMOL/L (3.5-5.1) Chloride Level 111 MMOL/L (98-107) H Carbon Dioxide Level 32 MMOL/L (21-32) Anion Gap 1 mmol/L (5-15) L Blood Urea Nitrogen 16 mg/dL (7-18) Creatinine 0.6 MG/DL (0.55-1.30) Estimat Glomerular Filtration Rate > 60 mL/min (>60) Glucose Level 91 MG/DL (74-106) Calcium Level 7.2 MG/DL (8.5-10.1) L Phosphorus Level 2.0 MG/DL (2.5-4.9) L Magnesium Level 1.9 MG/DL (1.8-2.4) Total Bilirubin 1.1 MG/DL (0.2-1.0) H Direct Bilirubin 0.7 MG/DL (0.0-0.3) H Aspartate Amino Transf (AST/SGOT) 37 U/L (15-37) Alanine Aminotransferase (ALT/SGPT) 20 U/L (12-78) Alkaline Phosphatase 49 U/L (46-116) Total Protein 5.3 G/DL (6.4-8.2) L Albumin 1.7 G/DL (3.4-5.0) L Globulin 3.6 g/dL Albumin/Globulin Ratio 0.5 (1.0-2.7) L Objective HEAD AND NECK: No JVD. Status post tracheostomy LUNGS: Coarse rhonchi. CARDIOVASCULAR: Shows irregular S1 and S2 with no gallop. ABDOMEN: Soft. Status post G-tube. EXTREMITIES: No pitting edema. Liang Barry MD Feb 22, 2020 17:14
--- NOTE | 2020-02-22 17:14 | Surgery Progress Note ---
Surgery Progress Note Subjective Symptoms: other Objective Last 24 Hour Vital Signs Date Time Temp Pulse Resp B/P (MAP) Pulse Ox O2 Delivery O2 Flow Rate FiO2 02/22/20 15:00 61 12 40 02/22/20 13:38 72 147/69 02/22/20 13:00 68 15 40 02/22/20 12:21 171/81 02/22/20 12:00 40 02/22/20 12:00 Mechanical Ventilator 02/22/20 12:00 60 02/22/20 12:00 98.5 69 12 151/74 (99) 100 02/22/20 11:30 68 14 40 02/22/20 09:45 158/94 02/22/20 09:00 64 13 40 02/22/20 08:00 59 02/22/20 08:00 Mechanical Ventilator 02/22/20 08:00 40 02/22/20 08:00 99.0 70 12 158/94 (115) 100 02/22/20 06:40 62 12 40 02/22/20 05:20 66 137/84 02/22/20 05:15 56 12 40 02/22/20 04:00 Mechanical Ventilator 02/22/20 04:00 62 02/22/20 04:00 98.6 61 19 137/72 (93) 99 02/22/20 04:00 40 02/22/20 03:30 61 13 40 02/22/20 01:13 66 12 40 02/22/20 00:00 66 02/22/20 00:00 98.4 65 20 158/65 (96) 100 02/22/20 00:00 Mechanical Ventilator 02/21/20 23:20 65 12 40 02/21/20 21:30 79 180/79 02/21/20 21:30 180/79 02/21/20 20:43 67 12 40 02/21/20 20:00 70 02/21/20 20:00 Mechanical Ventilator 02/21/20 20:00 40 02/21/20 20:00 95.5 66 19 186/78 (114) 100 02/21/20 19:30 63 12 40 02/21/20 17:54 158/78 I&O Intake and Output 02/21/20 02/22/20 19:00 07:00 Intake Total 375 ml 1200.000 ml Balance 375 ml 1200.000 ml Intake Free Water 100 ml 100 ml IV Total 495.000 ml Tube Feeding 275 ml 605 ml # Bowel Movements 1 Dressing: saturated Cardiovascular: RSR Respiratory: decreased breath sounds Abdomen: non-tender, present bowel sounds Extremities: no cyanosis Laboratory Tests Test 02/22/20 04:00 02/22/20 08:55 White Blood Count 7.0 K/UL (4.8-10.8) 7.0 K/UL (4.8-10.8) Red Blood Count 2.52 M/UL (4.70-6.10) L 2.97 M/UL (4.70-6.10) L Hemoglobin 7.8 G/DL (14.2-18.0) L 9.3 G/DL (14.2-18.0) L Hematocrit 26.9 % (42.0-52.0) L 31.6 % (42.0-52.0) L Mean Corpuscular Volume 107 FL (80-99) H 106 FL (80-99) H Mean Corpuscular Hemoglobin 31.1 PG (27.0-31.0) H 31.2 PG (27.0-31.0) H Mean Corpuscular Hemoglobin Concent 29.1 G/DL (32.0-36.0) L 29.3 G/DL (32.0-36.0) L Red Cell Distribution Width 18.0 % (11.6-14.8) H 17.7 % (11.6-14.8) H Platelet Count 180 K/UL (150-450) 179 K/UL (150-450) Mean Platelet Volume 6.7 FL (6.5-10.1) 7.1 FL (6.5-10.1) Neutrophils (%) (Auto) % (45.0-75.0) 66.8 % (45.0-75.0) Lymphocytes (%) (Auto) % (20.0-45.0) 10.5 % (20.0-45.0) L Monocytes (%) (Auto) % (1.0-10.0) 5.1 % (1.0-10.0) Eosinophils (%) (Auto) % (0.0-3.0) 16.6 % (0.0-3.0) H Basophils (%) (Auto) % (0.0-2.0) 0.9 % (0.0-2.0) Differential Total Cells Counted 100 Neutrophils % (Manual) 76 % (45-75) H Lymphocytes % (Manual) 7 % (20-45) L Monocytes % (Manual) 5 % (1-10) Eosinophils % (Manual) 12 % (0-3) H Basophils % (Manual) 0 % (0-2) Band Neutrophils 0 % (0-8) Platelet Estimate Adequate Platelet Morphology Normal Hypochromasia 1+ Anisocytosis 1+ Macrocytosis 1+ Sodium Level 144 MMOL/L (136-145) Potassium Level 3.6 MMOL/L (3.5-5.1) Chloride Level 111 MMOL/L (98-107) H Carbon Dioxide Level 32 MMOL/L (21-32) Anion Gap 1 mmol/L (5-15) L Blood Urea Nitrogen 16 mg/dL (7-18) Creatinine 0.6 MG/DL (0.55-1.30) Estimat Glomerular Filtration Rate > 60 mL/min (>60) Glucose Level 91 MG/DL (74-106) Calcium Level 7.2 MG/DL (8.5-10.1) L Phosphorus Level 2.0 MG/DL (2.5-4.9) L Magnesium Level 1.9 MG/DL (1.8-2.4) Total Bilirubin 1.1 MG/DL (0.2-1.0) H Direct Bilirubin 0.7 MG/DL (0.0-0.3) H Aspartate Amino Transf (AST/SGOT) 37 U/L (15-37) Alanine Aminotransferase (ALT/SGPT) 20 U/L (12-78) Alkaline Phosphatase 49 U/L (46-116) Total Protein 5.3 G/DL (6.4-8.2) L Albumin 1.7 G/DL (3.4-5.0) L Globulin 3.6 g/dL Albumin/Globulin Ratio 0.5 (1.0-2.7) L Plan Problems: (1) Sepsis Assessment & Plan: H&H has been stable since transfusion. Still with bloody aspirate with deep suctioning. No bleeding around tracheostomy site. LFTs remain elevated T bili direct bili ultrasound ordered (2) Aspiration pneumonia (3) Tracheostomy complication Assessment & Plan: This 84-year-old male with bleeding from tracheostomy noted in facility. Since has had some residue within the suctioning. Trach evaluated bedside no active bleeding noted. No skin issues. Mild granulation tissue. Able to manipulate and function without problem. Deep suctioning performed no active bleeding identified. Potential isolated incident we will continue to monitor over the next 2 to 3 days to ensure no active bleeding or source of bleeding that requires intervention. Thank you allowing me to participate in patient's care There is infiltrate at the left lung base. There may be some pleural fluid. The heart size is normal. There is a tracheostomy. noted some blood with suction trach okay ? bronch as per pulm Impression: Left basilar infiltrate and possible pleural fluid Tracheostomy (4) Tracheostomy malfunction Assessment & Plan: DAILY ESTIMATED NEEDS: Needs based on Critical care, wound/ 76kg abw 22-28 kcals/kg 3770-9663 total kcals 1.25-2 g protein/kg 95-152 g total protein 25-30 mL/kg 7867-5373 total fluid mLs NUTRITION DIAGNOSIS: * Swallowing difficulty R/T respiratory status as evidenced by trach/vent dep, PEG dep, NPO at this time. * Increased kcal/prot/micronutrients needs R/T wound healing as evidenced by pt admitted w/ stage 3 R lateral ankle wound. CURRENT TF: Vital @30 ENTERAL NUTRITION RECOMMENDATIONS: Glucerna 1.5 @ 55ml/hr x 24 hrs to provide 1320ml, 1980kcal, 109g prot, 1002ml free water * As medically appropriate, initiate Glucerna 1.5 @ 25ml/hr x 6hrs * Advance 10ml q 4-6 hrs as tolerated to goal rate * HOB over 30 degrees/ water flush per MD ADDITIONAL RECOMMENDATIONS: * Calibrated bedscale wt * Wound healing: TF rec @ goal provides 100% RDI add Vit C 500mg QD, ZnSO4 220mg QD x 10 days Yuriy BID via PEG w/ TF order * Monitor BGs, need for NISS * K low, rec repletion Yousuf Samayoa Feb 22, 2020 17:14
--- NOTE | 2020-02-22 18:20 | NUR ---
NURSE NOTES: The patient is resting on the bed comfortably without acute distress or shortness of breath. Tolerating tube feeding and vent setting well. Will closely monitor the patient. Will continue plan of care.
--- NOTE | 2020-02-22 19:15 | NUR ---
NURSE HAND-OFF REPORT: Important Events on Shift: Hgb 9.3, Cancellation of 1 unit pRBC transfusion per Dr. Donahue and Dr. Edgar's order, Kphos 20mm IV replacement, Blood pressure management per Dr. Longoria Patient Status: Stable, Full code Diet: Glucerna 1.5 @ 55mL/hr Pending Orders: N Pending Results/Labs: N Pending MD notification: N Latest Vital Signs: Temperature 98.8 , Pulse 71 , B/P 152 /70 , Respiratory Rate 15 , O2 SAT 100 , Mechanical Ventilator, O2 Flow Rate 5.0 . Vital Sign Comment: Stable EKG Rhythm: Sinus Rhythm Rhythm change?: N MD Notified?: Y -Dr. Jhonny RICARDO Response: Latest Wall Fall Score: 50 Fall Risk: High Risk Safety Measures: Call light Within Reach, Bed Alarm Zone 2, Side Rails Side Rails x3, Bed position Low and Locked. Fall Precautions: Yellow Socks Yellow Gown Door Sign Patient Fall Education Report given to LISSA Albright. The patient is stable at this time. Endorsed plan of care.
--- NOTE | 2020-02-22 19:16 | NUR ---
NURSE NOTES: received pt from Gayatri ALCARAZ., pt is resting on the bed, easy to arouse. obtunded. satellite project site monitor shows SR at this time. pt is in vent and no SOB noted. O2sat is at 99%. Gtube site intact clean, and patent. glucerna 1.5 is running at 55ml/hr. aggarwal noted, no active bleed noted, and it is draining well with gravity. side rails are padded per seizure precaution. ABD large and non-tender. no other active bleeding noted.call light within reach. will continue to monitor pt with plan of care. bed at the lowest position, alarmed, and locked.
[2020-02-22 20:00] VITALS: BP 135/80
[2020-02-22] MEDS: Dyna-Hex 2% Top Sol 2oz TOPIC SCH (20:29)
[2020-02-23] VITALS: BP 131/67
--- NOTE | 2020-02-23 | NUR ---
NURSE NOTES: cleaned pt, oral care given, reposition Q 2hrs. call light within reach. will continue to monitor pt.
[2020-02-23 04:00] VITALS: BP 136/80
[2020-02-23 05:53] LABS: BASOPHILS % (AUTO) 0.8 % (0.0-2.0); EOSINOPHILS % (AUTO) 17.1 % (0.0-3.0); HEMATOCRIT 33.9 % (42.0-52.0); MEAN CORPUSCULAR VOLUME 105 FL (80-99); MONOCYTES % (AUTO) 5.3 % (1.0-10.0); NEUTROPHILS % (AUTO) 67.7 % (45.0-75.0); PLATELET COUNT 192 K/UL (150-450); RED BLOOD COUNT 3.23 M/UL (4.70-6.10); WHITE BLOOD COUNT 7.8 K/UL (4.8-10.8)
[2020-02-23] MEDS: dilTIAZem HCl 60mg tab GT SCH ×2 (05:56→13:59)
[2020-02-23] MEDS: Meropenem 1 GM in NS 55 ML IVPB SCH (05:56)
--- NOTE | 2020-02-23 06:50 | Hematology/Onc Progress Note ---
Assessment/Plan Assessment/Plan IMPRESSION/RECS: 1. Leukcytosis with underlying Left lung pneumonia. --> recommend ABX vanc/zosyn-->yvette/vanc --> as per id --> wbc 18-->9 --> smear has been reviewed 2. Anemia due to chronic disease v iron deficiency --> anemia panel ordered --> transfuse prn hgb goal >7 --> occult blood --> hgb 11-->7-->9.1-->7.8 --> 1 unit 02/21 3. Lactic acidemia. --> likely due to infection -> ivfs started as well 4. Tracheal bleeding. --> per surgery --> vent, improved 5. Chronic tracheostomy. 6. Chronic vent dependence. 7. Chronic G-tube. 8. Previous CVA. 9. Dvt ppx heparin sq Appreciate consultation and Jacinto Barrow Subjective HEENT: Denies: no symptoms, eye pain, blurred vision, tearing, double vision, ear pain, ear discharge, nose pain, nose congestion, throat pain, throat swelling, mouth pain, mouth swelling, other Cardiovascular: Denies: no symptoms, chest pain, edema, irregular heart rate, lightheadedness, palpitations, syncope, other Gastrointestinal/Abdominal: Denies: no symptoms, abdomen distended, abdominal pain, black stools, tarry stools, blood in stool, constipated, diarrhea, difficulty swallowing, nausea, poor appetite, poor fluid intake, rectal bleeding, vomiting, other Neurologic/Psychiatric: Denies: no symptoms, anxiety, depressed, emotional problems, headache, numbness, paresthesia, pre-existing deficit, seizure, tingling, tremors, weakness, other Endocrine: Denies: no symptoms, excessive sweating, flushing, intolerance to cold, intolerance to heat, increased hunger, increased thirst, increased urine, unexplained weight gain, unexplained weight loss, other Hematologic/Lymphatic: Denies: no symptoms, anemia, easy bleeding, easy bruising, adenopathy, other Allergies: Coded Allergies: No Known Allergies (Unverified , 02/11/20) Subjective 02/14 on vent, trach, no bleeding, labs are noted, jacinto barrow 02/15 nonverbal, vent and gtube, no major events noted 02/16 nv, meds ntoed, vent, no bleeding, jacinto velásquez 02/17 asleep, on vent, and gtube, labs noted, hgb 9.7 02/18 no events, no bleeding, no new labs 02/19 labs pending, meds noted, no bleeding 02/21 labs reviewed, hgb 7.8, no hemoptysis, meds reviewed 02/22 remains on v/t, hgb is 10, no bleeding, no hemolysis Objective Objective Current Medications Medications (Trade) Dose Ordered Sig/Natalia Route PRN Reason Start Time Stop Time Status Last Admin Dose Admin Acetaminophen (Tylenol) 650 mg Q4H PRN GT Temp >100.5 02/11/20 13:30 03/12/20 13:29 Acetaminophen (Tylenol) 650 mg Q4H PRN GT Mild Pain (Pain Scale 1-3) 02/11/20 13:45 03/12/20 13:44 02/22/20 09:59 Ascorbic Acid (Vitamin C) 500 mg DAILY GT 02/17/20 09:00 03/18/20 08:59 02/22/20 09:45 Chlorhexidine Gluconate (Shirley-Hex 2%) 1 applic DAILY@1999 TOPIC 02/19/20 20:00 05/19/20 19:59 02/22/20 20:29 Diltiazem HCl (Cardizem Tab) 60 mg Q8HR GT 02/16/20 14:00 03/12/20 17:59 02/23/20 05:56 Heparin Sodium (Porcine) (Heparin 5000 units/ml) 5,000 units EVERY 12 HOURS SUBQ 02/12/20 21:00 03/28/20 20:59 02/22/20 20:34 Hydralazine HCl (Apresoline) 10 mg Q4H PRN IV BP over 160 syst 02/16/20 10:10 05/16/20 10:09 02/22/20 12:21 Levetiracetam (Keppra) 1,500 mg Q12HR GT 02/11/20 21:00 03/12/20 20:59 02/22/20 20:29 Levofloxacin (Levaquin) 750 mg DAILY GT 02/21/20 09:00 02/28/20 08:59 02/22/20 09:45 Lisinopril (PriniviL) 20 mg BID GT 02/22/20 18:00 03/18/20 09:44 02/22/20 17:14 Meropenem 1 gm/ Sodium Chloride 55 ml @ 110 mls/hr Q8HR IVPB 02/21/20 14:00 02/26/20 13:59 02/23/20 05:56 Pantoprazole (Protonix) 40 mg DAILY IVP 02/13/20 09:00 03/14/20 08:59 02/22/20 09:46 Vancomycin HCl (Vanco pharmacy to dose) 1 ea DAILY PRN MISC Per rx protocol 02/12/20 11:30 03/13/20 11:29 Vancomycin HCl 1 gm/Sodium Chloride 275 ml @ 183.708 mls/hr Q12H IVPB 02/21/20 12:00 02/26/20 11:59 02/22/20 23:33 Zinc Sulfate (Zinc Sulfate) 220 mg DAILY GT 02/17/20 09:00 02/27/20 08:59 02/22/20 09:45 Last 24 Hour Vital Signs Date Time Temp Pulse Resp B/P (MAP) Pulse Ox O2 Delivery O2 Flow Rate FiO2 02/23/20 05:56 72 132/77 02/23/20 05:24 64 12 40 02/23/20 04:00 Mechanical Ventilator 02/23/20 04:00 40 02/23/20 04:00 98.1 70 22 136/80 (98) 99 02/23/20 03:30 72 21 40 02/23/20 03:23 97 02/23/20 01:30 74 13 40 02/23/20 00:00 99.0 65 22 131/67 (88) 99 02/23/20 00:00 Mechanical Ventilator 02/22/20 23:56 40 02/22/20 23:47 65 02/22/20 23:11 65 13 40 02/22/20 21:46 70 138/77 02/22/20 21:30 72 16 40 02/22/20 20:00 68 02/22/20 20:00 97.5 70 20 135/80 (98) 100 02/22/20 20:00 Mechanical Ventilator 02/22/20 20:00 40 02/22/20 19:30 62 14 40 02/22/20 17:14 152/70 02/22/20 17:00 71 15 35 02/22/20 16:00 98.8 65 12 150/80 (103) 100 02/22/20 16:00 40 02/22/20 16:00 65 02/22/20 16:00 Mechanical Ventilator 02/22/20 15:00 61 12 40 02/22/20 13:38 72 147/69 02/22/20 13:00 68 15 40 02/22/20 12:21 171/81 02/22/20 12:00 40 02/22/20 12:00 Mechanical Ventilator 02/22/20 12:00 60 02/22/20 12:00 98.5 69 12 151/74 (99) 100 02/22/20 11:30 68 14 40 02/22/20 09:45 158/94 02/22/20 09:00 64 13 40 02/22/20 08:00 59 02/22/20 08:00 Mechanical Ventilator 02/22/20 08:00 40 02/22/20 08:00 99.0 70 12 158/94 (115) 100 02/22/20 06:40 62 12 40 02/22/20 05:20 66 137/84 02/22/20 05:15 56 12 40 02/22/20 04:00 Mechanical Ventilator 02/22/20 04:00 62 02/22/20 04:00 98.6 61 19 137/72 (93) 99 02/22/20 04:00 40 02/22/20 03:30 61 13 40 02/22/20 01:13 66 12 40 02/22/20 00:00 66 02/22/20 00:00 98.4 65 20 158/65 (96) 100 02/22/20 00:00 Mechanical Ventilator 02/21/20 23:20 65 12 40 02/21/20 21:30 79 180/79 02/21/20 21:30 180/79 02/21/20 20:43 67 12 40 02/21/20 20:00 70 02/21/20 20:00 Mechanical Ventilator 02/21/20 20:00 40 02/21/20 20:00 95.5 66 19 186/78 (114) 100 02/21/20 19:30 63 12 40 02/21/20 17:54 158/78 02/21/20 17:02 69 14 40 02/21/20 16:00 40 02/21/20 16:00 Mechanical Ventilator 02/21/20 16:00 99.5 73 20 158/78 (104) 100 02/21/20 16:00 64 02/21/20 15:13 70 13 40 02/21/20 15:01 73 167/76 02/21/20 14:17 73 15 98 Mechanical Ventilator 40 02/21/20 13:32 65 15 40 02/21/20 12:00 Mechanical Ventilator 02/21/20 12:00 40 02/21/20 12:00 60 02/21/20 12:00 97.8 64 20 167/76 (106) 98 02/21/20 11:34 66 12 40 02/21/20 09:15 57 12 40 02/21/20 08:57 153/76 02/21/20 08:00 Mechanical Ventilator 02/21/20 08:00 40 02/21/20 08:00 97.6 74 19 153/76 (101) 96 02/21/20 08:00 63 02/21/20 07:35 67 16 40 Intake and Output 02/22/20 02/23/20 19:00 07:00 Intake Total 860 ml 1085.000 ml Output Total 850 ml 1000 ml Balance 10 ml 85.000 ml Intake Free Water 200 ml 150 ml IV Total 330.000 ml Tube Feeding 660 ml 605 ml Output Urine Total 850 ml 1000 ml # Bowel Movements 4 3 Labs Test 02/21/20 03:30 02/22/20 04:00 02/22/20 08:55 02/23/20 05:00 White Blood Count 7.2 K/UL (4.8-10.8) 7.0 K/UL (4.8-10.8) 7.0 K/UL (4.8-10.8) 7.8 K/UL (4.8-10.8) Red Blood Count 3.00 M/UL (4.70-6.10) 2.52 M/UL (4.70-6.10) 2.97 M/UL (4.70-6.10) 3.23 M/UL (4.70-6.10) Hemoglobin 9.4 G/DL (14.2-18.0) 7.8 G/DL (14.2-18.0) 9.3 G/DL (14.2-18.0) 10.0 G/DL (14.2-18.0) Hematocrit 32.1 % (42.0-52.0) 26.9 % (42.0-52.0) 31.6 % (42.0-52.0) 33.9 % (42.0-52.0) Mean Corpuscular Volume 107 FL (80-99) 107 FL (80-99) 106 FL (80-99) 105 FL (80-99) Mean Corpuscular Hemoglobin 31.4 PG (27.0-31.0) 31.1 PG (27.0-31.0) 31.2 PG (27.0-31.0) 31.0 PG (27.0-31.0) Mean Corpuscular Hemoglobin Concent 29.4 G/DL (32.0-36.0) 29.1 G/DL (32.0-36.0) 29.3 G/DL (32.0-36.0) 29.4 G/DL (32.0-36.0) Red Cell Distribution Width 18.4 % (11.6-14.8) 18.0 % (11.6-14.8) 17.7 % (11.6-14.8) 18.0 % (11.6-14.8) Platelet Count 190 K/UL (150-450) 180 K/UL (150-450) 179 K/UL (150-450) 192 K/UL (150-450) Mean Platelet Volume 6.7 FL (6.5-10.1) 6.7 FL (6.5-10.1) 7.1 FL (6.5-10.1) 7.2 FL (6.5-10.1) Neutrophils (%) (Auto) 64.5 % (45.0-75.0) % (45.0-75.0) 66.8 % (45.0-75.0) 67.7 % (45.0-75.0) Lymphocytes (%) (Auto) 12.4 % (20.0-45.0) % (20.0-45.0) 10.5 % (20.0-45.0) 9.0 % (20.0-45.0) Monocytes (%) (Auto) 4.2 % (1.0-10.0) % (1.0-10.0) 5.1 % (1.0-10.0) 5.3 % (1.0-10.0) Eosinophils (%) (Auto) 18.2 % (0.0-3.0) % (0.0-3.0) 16.6 % (0.0-3.0) 17.1 % (0.0-3.0) Basophils (%) (Auto) 0.7 % (0.0-2.0) % (0.0-2.0) 0.9 % (0.0-2.0) 0.8 % (0.0-2.0) Differential Total Cells Counted 100 Neutrophils % (Manual) 76 % (45-75) Lymphocytes % (Manual) 7 % (20-45) Monocytes % (Manual) 5 % (1-10) Eosinophils % (Manual) 12 % (0-3) Basophils % (Manual) 0 % (0-2) Band Neutrophils 0 % (0-8) Platelet Estimate Adequate Platelet Morphology Normal Hypochromasia 1+ Anisocytosis 1+ Macrocytosis 1+ Sodium Level 144 MMOL/L (136-145) Potassium Level 3.6 MMOL/L (3.5-5.1) Chloride Level 111 MMOL/L (98-107) Carbon Dioxide Level 32 MMOL/L (21-32) Anion Gap 1 mmol/L (5-15) Blood Urea Nitrogen 16 mg/dL (7-18) Creatinine 0.6 MG/DL (0.55-1.30) Estimat Glomerular Filtration Rate > 60 mL/min (>60) Glucose Level 91 MG/DL (74-106) Calcium Level 7.2 MG/DL (8.5-10.1) Phosphorus Level 2.0 MG/DL (2.5-4.9) Magnesium Level 1.9 MG/DL (1.8-2.4) Total Bilirubin 1.1 MG/DL (0.2-1.0) Direct Bilirubin 0.7 MG/DL (0.0-0.3) Aspartate Amino Transf (AST/SGOT) 37 U/L (15-37) Alanine Aminotransferase (ALT/SGPT) 20 U/L (12-78) Alkaline Phosphatase 49 U/L (46-116) Total Protein 5.3 G/DL (6.4-8.2) Albumin 1.7 G/DL (3.4-5.0) Globulin 3.6 g/dL Albumin/Globulin Ratio 0.5 (1.0-2.7) Height (Feet): 5 Height (Inches): 8.00 Weight (Pounds): 212 Objective Physical Exam General appearance: alert, no distress, appears stated age HEENT: Normocephalic, Teeth and gums normal trach + Lungs: clear to auscultation bilaterally Heart: regular rate and rhythm, S1, S2 normal, no murmur, click, rub or gallop Abdomen: soft, non-tender. Bowel sounds normal. No masses, ++ feeding tube Extremities: extremities normal, atraumatic, no cyanosis or edema Pulses: 2+ and symmetric Skin: Skin color, texture, turgor normal. No rashes or lesions Neurologic: Grossly normal Bryce Edgar MD Feb 23, 2020 06:50
--- NOTE | 2020-02-23 07:00 | NUR ---
NURSE HAND-OFF REPORT: Important Events on Shift:[n/a] Patient Status: [stable] Diet: [glucerna 1.5 @ 55ml/hr] Pending Orders: n/a] Pending Results/Labs:[n/a] Pending MD notification:[n/a] Latest Vital Signs: Temperature 98.1 , Pulse 72 , B/P 132 /77 , Respiratory Rate 12 , O2 SAT 99 , Mechanical Ventilator, O2 Flow Rate 5.0 . Vital Sign Comment: [stable] EKG Rhythm: Sinus Rhythm Rhythm change?: N MD Notified?: N MD Response: Latest Wall Fall Score: 50 Fall Risk: High Risk Safety Measures: Call light Within Reach, Bed Alarm Zone 2, Side Rails Side Rails x3, Bed position Low and Locked. Fall Precautions: Yellow Socks Yellow Gown Door Sign Patient Fall Education Report given to [Carmen ALCARAZ].
--- NOTE | 2020-02-23 07:49 | NUR ---
NURSE NOTES: Received report from Syeda Wesley RN. Patient in bed resting, no active s/s cardiac, respiratory distress noticed at this time. Patient responding to verbal stimuli, SR with HR 78.Patient trach to vent Portex 7 AC 12 TV 500 Fio2 40% PEEP 5. GT feeding on Glucerna 1.5 @ 55ml/h, tolerating well at this time. IV on tight hand 22G, asymptomatic, patent, intact, PICC line on Left upper arm , patent, intact. Bed in lowest position, side rails upx3, call light within reach, bed alarm on, Will continue to monitor.
[2020-02-23 08:00] VITALS: BP 142/75
[2020-02-23] MEDS: Ascorbic Acid 500mg tab GT SCH (09:32)
[2020-02-23] MEDS: levETIRAcetam 500mg/5ml Liquid GT SCH ×2 (09:32→20:10)
[2020-02-23] MEDS: Lisinopril 20mg tab GT SCH ×2 (09:32→17:13)
[2020-02-23] MEDS: Zinc Sulfate 220mg GT SCH (09:32)
[2020-02-23] MEDS: Pantoprazole Inj IVP SCH (09:33)
[2020-02-23] MEDS: Levofloxacin 750mg tab GT SCH (09:33)
[2020-02-23] MEDS: Heparin 5000 units/ml inj SUBQ SCH ×2 (09:34→20:11)
--- NOTE | 2020-02-23 09:46 | General Progress Note ---
Subjective Allergies: Coded Allergies: No Known Allergies (Unverified , 02/11/20) Subjective Above note tolerating feeds Objective Last 24 Hour Vital Signs Date Time Temp Pulse Resp B/P (MAP) Pulse Ox O2 Delivery O2 Flow Rate FiO2 02/23/20 09:32 142/75 02/23/20 08:00 98.8 65 15 142/75 (97) 99 02/23/20 05:56 72 132/77 02/23/20 05:24 64 12 40 02/23/20 04:00 Mechanical Ventilator 02/23/20 04:00 40 02/23/20 04:00 98.1 70 22 136/80 (98) 99 02/23/20 03:30 72 21 40 02/23/20 03:23 97 02/23/20 01:30 74 13 40 02/23/20 00:00 99.0 65 22 131/67 (88) 99 02/23/20 00:00 Mechanical Ventilator 02/22/20 23:56 40 02/22/20 23:47 65 02/22/20 23:11 65 13 40 02/22/20 21:46 70 138/77 02/22/20 21:30 72 16 40 02/22/20 20:00 68 02/22/20 20:00 97.5 70 20 135/80 (98) 100 02/22/20 20:00 Mechanical Ventilator 02/22/20 20:00 40 02/22/20 19:30 62 14 40 02/22/20 17:14 152/70 02/22/20 17:00 71 15 35 02/22/20 16:00 98.8 65 12 150/80 (103) 100 02/22/20 16:00 40 02/22/20 16:00 65 02/22/20 16:00 Mechanical Ventilator 02/22/20 15:00 61 12 40 02/22/20 13:38 72 147/69 02/22/20 13:00 68 15 40 02/22/20 12:21 171/81 02/22/20 12:00 40 02/22/20 12:00 Mechanical Ventilator 02/22/20 12:00 60 02/22/20 12:00 98.5 69 12 151/74 (99) 100 02/22/20 11:30 68 14 40 Intake and Output 0 02/22/20 02/23/20 19:00 07:00 Intake Total 860 ml 1085.000 ml Output Total 850 ml 1000 ml Balance 10 ml 85.000 ml Intake Free Water 200 ml 150 ml IV Total 330.000 ml Tube Feeding 660 ml 605 ml Output Urine Total 850 ml 1000 ml # Bowel Movements 4 3 Laboratory Tests 02/23/20 05:00: White Blood Count 7.8, Red Blood Count 3.23L, Hemoglobin 10.0L, Hematocrit 33.9L , Mean Corpuscular Volume 105H, Mean Corpuscular Hemoglobin 31.0, Mean Corpuscular Hemoglobin Concent 29.4L, Red Cell Distribution Width 18.0H, Platelet Count 192, Mean Platelet Volume 7.2, Neutrophils (%) (Auto) 67.7, Lymphocytes (%) (Auto) 9.0L, Monocytes (%) (Auto) 5.3, Eosinophils (%) (Auto) 17.1H, Basophils (%) (Auto) 0.8 Height (Feet): 5 Height (Inches): 8.00 Weight (Pounds): 212 Objective Debilitated man NCAT supple, (+) Ttach Coarse BS RR abd soft, (+) GT OBS Assessment/Plan Status: progressing Assessment/Plan: Assessment - Resp failure - s/p Trach and PEG - nodular liver - possible cirrhosis - elevated bili Recommendation - follow labs - elevated HOB - TF - check hepatitis serologies --> negative Ajit Chappell MD Feb 23, 2020 09:46
--- NOTE | 2020-02-23 10:22 | Pulmonology Progress Note ---
Subjective ROS Limited/Unobtainable: Yes Interval Events: None new Constitutional: Denies: fever HEENT: Repors: no symptoms Respiratory: Reports: no symptoms Cardiovascular: Reports: no symptoms Gastrointestinal/Abdominal: Reports: other - NPO Allergies: Coded Allergies: No Known Allergies (Unverified , 02/11/20) Objective Last 24 Hour Vital Signs Date Time Temp Pulse Resp B/P (MAP) Pulse Ox O2 Delivery O2 Flow Rate FiO2 02/23/20 09:32 142/75 02/23/20 09:30 70 13 35 02/23/20 08:00 63 02/23/20 08:00 98.8 65 15 142/75 (97) 99 02/23/20 06:30 70 13 35 02/23/20 05:56 72 132/77 02/23/20 05:24 64 12 40 02/23/20 04:00 Mechanical Ventilator 02/23/20 04:00 40 02/23/20 04:00 98.1 70 22 136/80 (98) 99 02/23/20 03:30 72 21 40 02/23/20 03:23 97 02/23/20 01:30 74 13 40 02/23/20 00:00 99.0 65 22 131/67 (88) 99 02/23/20 00:00 Mechanical Ventilator 02/22/20 23:56 40 02/22/20 23:47 65 02/22/20 23:11 65 13 40 02/22/20 21:46 70 138/77 02/22/20 21:30 72 16 40 02/22/20 20:00 68 02/22/20 20:00 97.5 70 20 135/80 (98) 100 02/22/20 20:00 Mechanical Ventilator 02/22/20 20:00 40 02/22/20 19:30 62 14 40 02/22/20 17:14 152/70 02/22/20 17:00 71 15 35 02/22/20 16:00 98.8 65 12 150/80 (103) 100 02/22/20 16:00 40 02/22/20 16:00 65 02/22/20 16:00 Mechanical Ventilator 02/22/20 15:00 61 12 40 02/22/20 13:38 72 147/69 02/22/20 13:00 68 15 40 02/22/20 12:21 171/81 02/22/20 12:00 40 02/22/20 12:00 Mechanical Ventilator 02/22/20 12:00 60 02/22/20 12:00 98.5 69 12 151/74 (99) 100 02/22/20 11:30 68 14 40 Intake and Output 02/22/20 02/23/20 19:00 07:00 Intake Total 860 ml 1085.000 ml Output Total 850 ml 1000 ml Balance 10 ml 85.000 ml Intake Free Water 200 ml 150 ml IV Total 330.000 ml Tube Feeding 660 ml 605 ml Output Urine Total 850 ml 1000 ml # Bowel Movements 4 3 General Appearance: no acute distress HEENT: normocephalic Respiratory: chest wall non-tender, lungs clear Cardiovascular: normal peripheral pulses Abdomen: normal bowel sounds Laboratory Tests 02/23/20 05:00: White Blood Count 7.8, Red Blood Count 3.23L, Hemoglobin 10.0L, Hematocrit 33.9L , Mean Corpuscular Volume 105H, Mean Corpuscular Hemoglobin 31.0, Mean Corpuscular Hemoglobin Concent 29.4L, Red Cell Distribution Width 18.0H, Platelet Count 192, Mean Platelet Volume 7.2, Neutrophils (%) (Auto) 67.7, Lymphocytes (%) (Auto) 9.0L, Monocytes (%) (Auto) 5.3, Eosinophils (%) (Auto) 17.1H, Basophils (%) (Auto) 0.8 Current Medications Medications (Trade) Dose Ordered Sig/Natalia Route PRN Reason Start Time Stop Time Status Last Admin Dose Admin Acetaminophen (Tylenol) 650 mg Q4H PRN GT Temp >100.5 02/11/20 13:30 03/12/20 13:29 Acetaminophen (Tylenol) 650 mg Q4H PRN GT Mild Pain (Pain Scale 1-3) 02/11/20 13:45 03/12/20 13:44 02/22/20 09:59 Ascorbic Acid (Vitamin C) 500 mg DAILY GT 02/17/20 09:00 03/18/20 08:59 02/23/20 09:32 Chlorhexidine Gluconate (Shirley-Hex 2%) 1 applic DAILY@1999 TOPIC 02/19/20 20:00 05/19/20 19:59 02/22/20 20:29 Diltiazem HCl (Cardizem Tab) 60 mg Q8HR GT 02/16/20 14:00 03/12/20 17:59 02/23/20 05:56 Heparin Sodium (Porcine) (Heparin 5000 units/ml) 5,000 units EVERY 12 HOURS SUBQ 02/12/20 21:00 03/28/20 20:59 02/23/20 09:34 Hydralazine HCl (Apresoline) 10 mg Q4H PRN IV BP over 160 syst 02/16/20 10:10 05/16/20 10:09 02/22/20 12:21 Levetiracetam (Keppra) 1,500 mg Q12HR GT 02/11/20 21:00 03/12/20 20:59 02/23/20 09:32 Levofloxacin (Levaquin) 750 mg DAILY GT 02/21/20 09:00 02/28/20 08:59 02/23/20 09:33 Lisinopril (PriniviL) 20 mg BID GT 02/22/20 18:00 03/18/20 09:44 02/23/20 09:32 Meropenem 1 gm/ Sodium Chloride 55 ml @ 110 mls/hr Q8HR IVPB 02/21/20 14:00 02/26/20 13:59 02/23/20 05:56 Pantoprazole (Protonix) 40 mg DAILY IVP 02/13/20 09:00 03/14/20 08:59 02/23/20 09:33 Vancomycin HCl (Vanco pharmacy to dose) 1 ea DAILY PRN MISC Per rx protocol 02/12/20 11:30 03/13/20 11:29 Vancomycin HCl 1 gm/Sodium Chloride 275 ml @ 183.708 mls/hr Q12H IVPB 02/21/20 12:00 02/26/20 11:59 02/22/20 23:33 Zinc Sulfate (Zinc Sulfate) 220 mg DAILY GT 02/17/20 09:00 02/27/20 08:59 02/23/20 09:32 Assessment/Plan Assessment/Plan IMPRESSION: 1. Bilateral lung pneumonia (HCAP) with pseudomonas/stenotrophomonas 2. Leukocytosis. Resolved 3. Lactic acidemia. 4. Endo-tracheal bleeding/hemoptysis... Hgb stable post-transfusion 5. Chronic tracheostomy. 6. Chronic vent dependence. 7. Chronic G-tube. 8. Previous CVA. DISCUSSION: Continue broad-spectrum antibiotics. Oxygen and pulmonary hygiene. Tracheostomy site is clean CT chest confirms dense bilateral pneumonia Micro - stentotrophomonas/pseudomonas I will follow carefully. DVT and GI prophylaxes. PICC line in place OK to dc back to SNF Will need IV abx (Meropenem) Rylan Otero M.D. Rylan Otero MD Feb 23, 2020 10:22
[2020-02-23] MEDS: Vancomycin 1 GM in NS 275 ML IVPB SCH (11:11)
--- NOTE | 2020-02-23 11:15 | Cardiac Electrophysiology PN ---
Assessment/Plan Assessment/Plan 1. Atrial fibrillation with rapid ventricular response. On Cardizem 60 mg tid Off anticoagulation for tracheal bleed. In SR with first degree AVB 2. Accelerated hypertension. On Cardizem 60 tid and Lisinopril 20 bid 3. Bleeding from the trach site. Fu by Surgery. S/P PRBC 4. Ventilator-respiratory failure. Fu by Dr. Otero. 5. Dysphagia, status post PEG placement. 6. Elevated white count and sepsis, on IV antibiotic. DW RN Subjective Subjective Fio2 40% and PEEP 5. No more tracheal bleed. DC to [facility] pending BP was in 180s and Lisinopril increased to 20 bid.BP 160s today. At times rizwana in high 50s on Cardizem Objective Last 24 Hour Vital Signs Date Time Temp Pulse Resp B/P (MAP) Pulse Ox O2 Delivery O2 Flow Rate FiO2 02/23/20 09:32 142/75 02/23/20 09:30 70 13 35 02/23/20 08:00 40 02/23/20 08:00 63 02/23/20 08:00 Mechanical Ventilator 02/23/20 08:00 98.8 65 15 142/75 (97) 99 02/23/20 06:30 70 13 35 02/23/20 05:56 72 132/77 02/23/20 05:24 64 12 40 02/23/20 04:00 Mechanical Ventilator 02/23/20 04:00 40 02/23/20 04:00 98.1 70 22 136/80 (98) 99 02/23/20 03:30 72 21 40 02/23/20 03:23 97 02/23/20 01:30 74 13 40 02/23/20 00:00 99.0 65 22 131/67 (88) 99 02/23/20 00:00 Mechanical Ventilator 02/22/20 23:56 40 02/22/20 23:47 65 02/22/20 23:11 65 13 40 02/22/20 21:46 70 138/77 02/22/20 21:30 72 16 40 02/22/20 20:00 68 02/22/20 20:00 97.5 70 20 135/80 (98) 100 02/22/20 20:00 Mechanical Ventilator 02/22/20 20:00 40 02/22/20 19:30 62 14 40 02/22/20 17:14 152/70 02/22/20 17:00 71 15 35 02/22/20 16:00 98.8 65 12 150/80 (103) 100 02/22/20 16:00 40 02/22/20 16:00 65 02/22/20 16:00 Mechanical Ventilator 02/22/20 15:00 61 12 40 02/22/20 13:38 72 147/69 02/22/20 13:00 68 15 40 02/22/20 12:21 171/81 02/22/20 12:00 40 02/22/20 12:00 Mechanical Ventilator 02/22/20 12:00 60 02/22/20 12:00 98.5 69 12 151/74 (99) 100 02/22/20 11:30 68 14 40 Intake and Output 02/22/20 02/23/20 19:00 07:00 Intake Total 860 ml 1085.000 ml Output Total 850 ml 1000 ml Balance 10 ml 85.000 ml Intake Free Water 200 ml 150 ml IV Total 330.000 ml Tube Feeding 660 ml 605 ml Output Urine Total 850 ml 1000 ml # Bowel Movements 4 3 Laboratory Tests Test 02/23/20 05:00 White Blood Count 7.8 K/UL (4.8-10.8) Red Blood Count 3.23 M/UL (4.70-6.10) L Hemoglobin 10.0 G/DL (14.2-18.0) L Hematocrit 33.9 % (42.0-52.0) L Mean Corpuscular Volume 105 FL (80-99) H Mean Corpuscular Hemoglobin 31.0 PG (27.0-31.0) Mean Corpuscular Hemoglobin Concent 29.4 G/DL (32.0-36.0) L Red Cell Distribution Width 18.0 % (11.6-14.8) H Platelet Count 192 K/UL (150-450) Mean Platelet Volume 7.2 FL (6.5-10.1) Neutrophils (%) (Auto) 67.7 % (45.0-75.0) Lymphocytes (%) (Auto) 9.0 % (20.0-45.0) L Monocytes (%) (Auto) 5.3 % (1.0-10.0) Eosinophils (%) (Auto) 17.1 % (0.0-3.0) H Basophils (%) (Auto) 0.8 % (0.0-2.0) Objective HEAD AND NECK: No JVD. Status post tracheostomy LUNGS: Coarse rhonchi. CARDIOVASCULAR: Shows irregular S1 and S2 with no gallop. ABDOMEN: Soft. Status post G-tube. EXTREMITIES: No pitting edema. Liang Barry MD Feb 23, 2020 11:15
[2020-02-23 12:00] VITALS: BP 135/67
--- NOTE | 2020-02-23 13:03 | Nephrology Progress Note ---
Assessment/Plan Problem List: (1) Electrolyte imbalance (2) HTN (hypertension) (3) Aspiration pneumonia (4) Tracheostomy complication (5) Anemia (6) Chronic respiratory failure Assessment Electrolyte imbalance, hypokalemia Normal BUN/creatinine Sepsis leukocytosis tachycardia with left-sided pneumonia Tracheostomy complication with bleeding Anemia Ventilator dependent respiratory failure Atrial fibrillation PEG Plan February 22: No labs drawn today. Blood pressure better controlled. Continue to monitor renal parameters. February 21: Labs reviewed. Lisinopril dose increased for better BP control. Phosphorus supplement intravenously ordered. Continue per consultants. February 20: No labs drawn today. Will order labs tomorrow. Clinically stable. Continue per consultants. Remains full code. February 19: Labs reviewed. Phosphorus supplement ordered. Continue per consultants. February 18: No chemistry panel done today. Stable from renal standpoint of view. February 17: Labs reviewed. Abnormal electrolytes addressed. Blood pressure medication adjusted. Continue as is. February 16: Potassium supplement, phosphorus, magnesium supplement as needed. Monitor electrolytes and chemistries. Discontinued IV fluid. Adjust blood pressure medication, Zestril added and 1 dose of Lasix 20 mg given Subjective ROS Limited/Unobtainable: Yes Objective Objective Last 24 Hour Vital Signs Date Time Temp Pulse Resp B/P (MAP) Pulse Ox O2 Delivery O2 Flow Rate FiO2 02/23/20 12:00 40 02/23/20 12:00 Mechanical Ventilator 02/23/20 12:00 98.1 62 17 135/67 (89) 100 02/23/20 12:00 72 02/23/20 10:45 69 13 35 02/23/20 09:32 142/75 02/23/20 09:30 70 13 35 02/23/20 08:00 40 02/23/20 08:00 63 02/23/20 08:00 Mechanical Ventilator 02/23/20 08:00 98.8 65 15 142/75 (97) 99 02/23/20 06:30 70 13 35 02/23/20 05:56 72 132/77 02/23/20 05:24 64 12 40 02/23/20 04:00 Mechanical Ventilator 02/23/20 04:00 40 02/23/20 04:00 98.1 70 22 136/80 (98) 99 02/23/20 03:30 72 21 40 02/23/20 03:23 97 02/23/20 01:30 74 13 40 02/23/20 00:00 99.0 65 22 131/67 (88) 99 02/23/20 00:00 Mechanical Ventilator 02/22/20 23:56 40 02/22/20 23:47 65 02/22/20 23:11 65 13 40 02/22/20 21:46 70 138/77 02/22/20 21:30 72 16 40 02/22/20 20:00 68 02/22/20 20:00 97.5 70 20 135/80 (98) 100 02/22/20 20:00 Mechanical Ventilator 02/22/20 20:00 40 02/22/20 19:30 62 14 40 02/22/20 17:14 152/70 02/22/20 17:00 71 15 35 02/22/20 16:00 98.8 65 12 150/80 (103) 100 02/22/20 16:00 40 02/22/20 16:00 65 02/22/20 16:00 Mechanical Ventilator 02/22/20 15:00 61 12 40 02/22/20 13:38 72 147/69 Intake and Output 02/22/20 02/23/20 19:00 07:00 Intake Total 860 ml 1085.000 ml Output Total 850 ml 1000 ml Balance 10 ml 85.000 ml Intake Free Water 200 ml 150 ml IV Total 330.000 ml Tube Feeding 660 ml 605 ml Output Urine Total 850 ml 1000 ml # Bowel Movements 4 3 No can panel done today Laboratory Tests 02/23/20 05:00: White Blood Count 7.8, Red Blood Count 3.23L, Hemoglobin 10.0L, Hematocrit 33.9L , Mean Corpuscular Volume 105H, Mean Corpuscular Hemoglobin 31.0, Mean Corpuscular Hemoglobin Concent 29.4L, Red Cell Distribution Width 18.0H, Platelet Count 192, Mean Platelet Volume 7.2, Neutrophils (%) (Auto) 67.7, Lymphocytes (%) (Auto) 9.0L, Monocytes (%) (Auto) 5.3, Eosinophils (%) (Auto) 17.1H, Basophils (%) (Auto) 0.8 Height (Feet): 5 Height (Inches): 8.00 Weight (Pounds): 212 General Appearance: no apparent distress EENT: other - Trach and vent Cardiovascular: normal rate Respiratory/Chest: decreased breath sounds Abdomen: distended Tano Longoria MD Feb 23, 2020 13:03
--- NOTE | 2020-02-23 13:11 | Infectious Diseases Prog Note ---
Assessment/Plan Assessment/Plan IMPRESSION: Sepsis with Staph aureus (MRSA) Pseudomonas, E coli & Steotrophomonas pneumonia, treated Tracheostomy complication with bleeding. 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 RECOMMENDATIONS: Discontinue Levaquin and Meropenem Continue IV Vancomycin X 2 days Agree with discharge Subjective ROS Limited/Unobtainable: Yes Constitutional: Denies: fever Allergies: Coded Allergies: No Known Allergies (Unverified , 02/11/20) Objective Last 24 Hour Vital Signs Date Time Temp Pulse Resp B/P (MAP) Pulse Ox O2 Delivery O2 Flow Rate FiO2 02/23/20 12:00 40 02/23/20 12:00 Mechanical Ventilator 02/23/20 12:00 98.1 62 17 135/67 (89) 100 02/23/20 12:00 72 02/23/20 10:45 69 13 35 02/23/20 09:32 142/75 02/23/20 09:30 70 13 35 02/23/20 08:00 40 02/23/20 08:00 63 02/23/20 08:00 Mechanical Ventilator 02/23/20 08:00 98.8 65 15 142/75 (97) 99 02/23/20 06:30 70 13 35 02/23/20 05:56 72 132/77 02/23/20 05:24 64 12 40 02/23/20 04:00 Mechanical Ventilator 02/23/20 04:00 40 02/23/20 04:00 98.1 70 22 136/80 (98) 99 02/23/20 03:30 72 21 40 02/23/20 03:23 97 02/23/20 01:30 74 13 40 02/23/20 00:00 99.0 65 22 131/67 (88) 99 02/23/20 00:00 Mechanical Ventilator 02/22/20 23:56 40 02/22/20 23:47 65 02/22/20 23:11 65 13 40 02/22/20 21:46 70 138/77 02/22/20 21:30 72 16 40 02/22/20 20:00 68 02/22/20 20:00 97.5 70 20 135/80 (98) 100 02/22/20 20:00 Mechanical Ventilator 02/22/20 20:00 40 02/22/20 19:30 62 14 40 02/22/20 17:14 152/70 02/22/20 17:00 71 15 35 02/22/20 16:00 98.8 65 12 150/80 (103) 100 02/22/20 16:00 40 02/22/20 16:00 65 02/22/20 16:00 Mechanical Ventilator 02/22/20 15:00 61 12 40 02/22/20 13:38 72 147/69 Height (Feet): 5 Height (Inches): 8.00 Weight (Pounds): 212 HEENT: status post trach Respiratory/Chest: lungs clear, other - on ventilator Cardiovascular: normal rate Abdomen: distended, other - GT feeding Extremities: other - generalized edema Neurologic/Psychiatric: unresponsiveness Laboratory Tests Test 02/23/20 05:00 White Blood Count 7.8 K/UL (4.8-10.8) Red Blood Count 3.23 M/UL (4.70-6.10) L Hemoglobin 10.0 G/DL (14.2-18.0) L Hematocrit 33.9 % (42.0-52.0) L Mean Corpuscular Volume 105 FL (80-99) H Mean Corpuscular Hemoglobin 31.0 PG (27.0-31.0) Mean Corpuscular Hemoglobin Concent 29.4 G/DL (32.0-36.0) L Red Cell Distribution Width 18.0 % (11.6-14.8) H Platelet Count 192 K/UL (150-450) Mean Platelet Volume 7.2 FL (6.5-10.1) Neutrophils (%) (Auto) 67.7 % (45.0-75.0) Lymphocytes (%) (Auto) 9.0 % (20.0-45.0) L Monocytes (%) (Auto) 5.3 % (1.0-10.0) Eosinophils (%) (Auto) 17.1 % (0.0-3.0) H Basophils (%) (Auto) 0.8 % (0.0-2.0) Current Medications Medications (Trade) Dose Ordered Sig/Natalia Route PRN Reason Start Time Stop Time Status Last Admin Dose Admin Acetaminophen (Tylenol) 650 mg Q4H PRN GT Temp >100.5 02/11/20 13:30 03/12/20 13:29 Acetaminophen (Tylenol) 650 mg Q4H PRN GT Mild Pain (Pain Scale 1-3) 02/11/20 13:45 03/12/20 13:44 02/22/20 09:59 Ascorbic Acid (Vitamin C) 500 mg DAILY GT 02/17/20 09:00 03/18/20 08:59 02/23/20 09:32 Chlorhexidine Gluconate (Sihrley-Hex 2%) 1 applic DAILY@2000 TOPIC 02/19/20 20:00 05/19/20 19:59 02/22/20 20:29 Diltiazem HCl (Cardizem Tab) 60 mg Q8HR GT 02/16/20 14:00 03/12/20 17:59 02/23/20 05:56 Heparin Sodium (Porcine) (Heparin 5000 units/ml) 5,000 units EVERY 12 HOURS SUBQ 02/12/20 21:00 03/28/20 20:59 02/23/20 09:34 Hydralazine HCl (Apresoline) 10 mg Q4H PRN IV BP over 160 syst 02/16/20 10:10 05/16/20 10:09 02/22/20 12:21 Levetiracetam (Keppra) 1,500 mg Q12HR GT 02/11/20 21:00 03/12/20 20:59 02/23/20 09:32 Levofloxacin (Levaquin) 750 mg DAILY GT 02/21/20 09:00 02/28/20 08:59 02/23/20 09:33 Lisinopril (PriniviL) 20 mg BID GT 02/22/20 18:00 03/18/20 09:44 02/23/20 09:32 Meropenem 1 gm/ Sodium Chloride 55 ml @ 110 mls/hr Q8HR IVPB 02/21/20 14:00 02/26/20 13:59 02/23/20 05:56 Pantoprazole (Protonix) 40 mg DAILY IVP 02/13/20 09:00 03/14/20 08:59 02/23/20 09:33 Vancomycin HCl (Vanco pharmacy to dose) 1 ea DAILY PRN MISC Per rx protocol 02/12/20 11:30 03/13/20 11:29 Vancomycin HCl 1 gm/Sodium Chloride 275 ml @ 183.708 mls/hr Q12H IVPB 02/21/20 12:00 02/26/20 11:59 02/23/20 11:11 Zinc Sulfate (Zinc Sulfate) 220 mg DAILY GT 02/17/20 09:00 02/27/20 08:59 02/23/20 09:32 Ulises Vasquez MD Feb 23, 2020 13:11
--- NOTE | 2020-02-23 13:59 | NUR ---
*-*DISCHARGE PLANNING*-* PATIENT HAS BEEN REFERRED BACK TO: [facility] P: [phone] S/W RADHA,WAITING FOR AUTHORIZATION, WILL CALL BACK WITH ROOM ASSIGNMENT AFTER RECEIVED AUTH FROM [employer]GEN[facility].
[2020-02-23 16:00] VITALS: BP 148/84
--- NOTE | 2020-02-23 16:44 | NUR ---
NURSE NOTES: Paged Dr. Barry regarding non-sustained rizwana 30-40s. Now SR with HR 90s. BP 159/75. No new order received at this time, Will continue to follow up.
[2020-02-23] MEDS: dilTIAZem HCl 30mg tab GT SCH ×2 (16:48→22:13)
--- NOTE | 2020-02-23 17:37 | NUR ---
*-*DISCHARGE PLANNING*-* PATIENT HAS BEEN REFERRED BACK TO: [facility] P: [phone] S/W RADHA, PENDING AUTH, CALL TOMORROW , AND FOLLOW UP ON APPROVAL.
--- NOTE | 2020-02-23 18:30 | NUR ---
NURSE NOTES: Dr. Barry made aware of patient bradycardia 30 to 50s, per MD hold DC at this time, patient case coordinator made aware.
--- NOTE | 2020-02-23 18:54 | Surgery Progress Note ---
Surgery Progress Note Subjective Additional Comments tolerating tf hepatitis negative lab snoted exam stable ill appearing Objective Last 24 Hour Vital Signs Date Time Temp Pulse Resp B/P (MAP) Pulse Ox O2 Delivery O2 Flow Rate FiO2 02/23/20 17:13 148/84 02/23/20 16:30 60 16 35 02/23/20 16:00 98.6 110 19 148/84 (105) 99 02/23/20 16:00 Mechanical Ventilator 02/23/20 16:00 40 02/23/20 16:00 105 02/23/20 15:00 96 17 35 02/23/20 13:59 72 135/67 02/23/20 13:05 66 14 35 02/23/20 12:00 40 02/23/20 12:00 Mechanical Ventilator 02/23/20 12:00 98.1 62 17 135/67 (89) 100 02/23/20 12:00 72 02/23/20 10:45 69 13 35 02/23/20 09:32 142/75 02/23/20 09:30 70 13 35 02/23/20 08:00 40 02/23/20 08:00 63 02/23/20 08:00 Mechanical Ventilator 02/23/20 08:00 98.8 65 15 142/75 (97) 99 02/23/20 06:30 70 13 35 02/23/20 05:56 72 132/77 02/23/20 05:24 64 12 40 02/23/20 04:00 Mechanical Ventilator 02/23/20 04:00 40 02/23/20 04:00 98.1 70 22 136/80 (98) 99 02/23/20 03:30 72 21 40 02/23/20 03:23 97 02/23/20 01:30 74 13 40 02/23/20 00:00 99.0 65 22 131/67 (88) 99 02/23/20 00:00 Mechanical Ventilator 02/22/20 23:56 40 02/22/20 23:47 65 02/22/20 23:11 65 13 40 02/22/20 21:46 70 138/77 02/22/20 21:30 72 16 40 02/22/20 20:00 68 02/22/20 20:00 97.5 70 20 135/80 (98) 100 02/22/20 20:00 Mechanical Ventilator 02/22/20 20:00 40 02/22/20 19:30 62 14 40 I&O Intake and Output 02/22/20 02/23/20 19:00 07:00 Intake Total 860 ml 1140.000 ml Output Total 850 ml 1000 ml Balance 10 ml 140.000 ml Intake Free Water 200 ml 150 ml IV Total 330.000 ml Tube Feeding 660 ml 660 ml Output Urine Total 850 ml 1000 ml # Bowel Movements 4 3 Dressing: saturated Cardiovascular: RSR Respiratory: decreased breath sounds Abdomen: soft, non-tender, present bowel sounds, non-distended Extremities: no edema, no tenderness, no cyanosis Laboratory Tests Test 02/23/20 05:00 White Blood Count 7.8 K/UL (4.8-10.8) Red Blood Count 3.23 M/UL (4.70-6.10) L Hemoglobin 10.0 G/DL (14.2-18.0) L Hematocrit 33.9 % (42.0-52.0) L Mean Corpuscular Volume 105 FL (80-99) H Mean Corpuscular Hemoglobin 31.0 PG (27.0-31.0) Mean Corpuscular Hemoglobin Concent 29.4 G/DL (32.0-36.0) L Red Cell Distribution Width 18.0 % (11.6-14.8) H Platelet Count 192 K/UL (150-450) Mean Platelet Volume 7.2 FL (6.5-10.1) Neutrophils (%) (Auto) 67.7 % (45.0-75.0) Lymphocytes (%) (Auto) 9.0 % (20.0-45.0) L Monocytes (%) (Auto) 5.3 % (1.0-10.0) Eosinophils (%) (Auto) 17.1 % (0.0-3.0) H Basophils (%) (Auto) 0.8 % (0.0-2.0) Plan Problems: (1) Sepsis Assessment & Plan: H&H has been stable since transfusion. Still with bloody aspirate with deep suctioning. No bleeding around tracheostomy site. LFTs remain elevated T bili direct bili ultrasound ordered (2) Aspiration pneumonia (3) Tracheostomy complication Assessment & Plan: This 84-year-old male with bleeding from tracheostomy noted in facility. Since has had some residue within the suctioning. Trach evaluated bedside no active bleeding noted. No skin issues. Mild granulation tissue. Able to manipulate and function without problem. Deep suctioning performed no active bleeding identified. Potential isolated incident we will continue to monitor over the next 2 to 3 days to ensure no active bleeding or source of bleeding that requires intervention. Thank you allowing me to participate in patient's care There is infiltrate at the left lung base. There may be some pleural fluid. The heart size is normal. There is a tracheostomy. noted some blood with suction trach okay ? bronch as per pulm Impression: Left basilar infiltrate and possible pleural fluid Tracheostomy (4) Tracheostomy malfunction Assessment & Plan: DAILY ESTIMATED NEEDS: Needs based on Critical care, wound/ 76kg abw 22-28 kcals/kg 6841-1353 total kcals 1.25-2 g protein/kg 95-152 g total protein 25-30 mL/kg 5951-6369 total fluid mLs NUTRITION DIAGNOSIS: * Swallowing difficulty R/T respiratory status as evidenced by trach/vent dep, PEG dep, NPO at this time. * Increased kcal/prot/micronutrients needs R/T wound healing as evidenced by pt admitted w/ stage 3 R lateral ankle wound. CURRENT TF: Vital @30 ENTERAL NUTRITION RECOMMENDATIONS: Glucerna 1.5 @ 55ml/hr x 24 hrs to provide 1320ml, 1980kcal, 109g prot, 1002ml free water * As medically appropriate, initiate Glucerna 1.5 @ 25ml/hr x 6hrs * Advance 10ml q 4-6 hrs as tolerated to goal rate * HOB over 30 degrees/ water flush per MD ADDITIONAL RECOMMENDATIONS: * Calibrated bedscale wt * Wound healing: TF rec @ goal provides 100% RDI add Vit C 500mg QD, ZnSO4 220mg QD x 10 days Yuriy BID via PEG w/ TF order * Monitor BGs, need for NISS * Rekha rodriguez, rec repletion Yousuf Samayoa Feb 23, 2020 18:54
--- NOTE | 2020-02-23 19:15 | NUR ---
NURSE NOTES: Received report from LISSA Sierra. Pt is seen lyingin bed in semi- hernandez's position. Pt is obtunded. But awaken with light pain. Pt is still rizwana as per prev nurse. Dr. Barry was previously aware. Pt HR- 58, pt is sleeping. On trach to vent with settings as ordered. discharge on hold per previous nurse because of the SB rhythym of pt. With GTF patent and intact. With aggarwal cath draining dark jacque urine. VS WNL. NO pain noted. No facial grimace noted. Bed in lowest position. Call light within reach. Continue to plan of care.
--- NOTE | 2020-02-23 19:16 | NUR ---
NURSE HAND-OFF REPORT: Important Events on Shift: SB 30-50s, hold on DC Patient Status: guarded/stable Diet: Glucerna 1.5 @ 55ml/h Pending Orders: na Pending Results/Labs:na Pending notification:na Latest Vital Signs: Temperature 98.6 , Pulse 59 , B/P 148 /84 , Respiratory Rate 14 , O2 SAT 99 , Mechanical Ventilator, O2 Flow Rate 5.0 . Vital Sign Comment: stable EKG Rhythm: Atrial Fibrillation Rhythm change?: José Miguel RICARDO Notified?: N -Dr. Jhonny RICARDO Response: Latest Wall Fall Score: 50 Fall Risk: High Risk Safety Measures: Call light Within Reach, Bed Alarm Zone 2, Side Rails Side Rails x3, Bed position Low and Locked. Fall Precautions: Yellow Socks Yellow Gown Door Sign Patient Fall Education Report given to LISSA James.
[2020-02-23 20:00] VITALS: BP 115/58
[2020-02-23] MEDS: Dyna-Hex 2% Top Sol 2oz TOPIC SCH (20:10)
--- NOTE | 2020-02-23 20:59 | General Progress Note ---
Subjective ROS Limited/Unobtainable: Yes Allergies: Coded Allergies: No Known Allergies (Unverified , 02/11/20) Objective Last 24 Hour Vital Signs Date Time Temp Pulse Resp B/P (MAP) Pulse Ox O2 Delivery O2 Flow Rate FiO2 02/23/20 20:32 64 13 35 02/23/20 18:51 59 14 35 02/23/20 17:13 148/84 02/23/20 16:30 60 16 35 02/23/20 16:00 98.6 110 19 148/84 (105) 99 02/23/20 16:00 Mechanical Ventilator 02/23/20 16:00 40 02/23/20 16:00 105 02/23/20 15:00 96 17 35 02/23/20 13:59 72 135/67 02/23/20 13:05 66 14 35 02/23/20 12:00 40 02/23/20 12:00 Mechanical Ventilator 02/23/20 12:00 98.1 62 17 135/67 (89) 100 02/23/20 12:00 72 02/23/20 10:45 69 13 35 02/23/20 09:32 142/75 02/23/20 09:30 70 13 35 02/23/20 08:00 40 02/23/20 08:00 63 02/23/20 08:00 Mechanical Ventilator 02/23/20 08:00 98.8 65 15 142/75 (97) 99 02/23/20 06:30 70 13 35 02/23/20 05:56 72 132/77 02/23/20 05:24 64 12 40 02/23/20 04:00 Mechanical Ventilator 02/23/20 04:00 40 02/23/20 04:00 98.1 70 22 136/80 (98) 99 02/23/20 03:30 72 21 40 02/23/20 03:23 97 02/23/20 01:30 74 13 40 02/23/20 00:00 99.0 65 22 131/67 (88) 99 02/23/20 00:00 Mechanical Ventilator 02/22/20 23:56 40 02/22/20 23:47 65 02/22/20 23:11 65 13 40 02/22/20 21:46 70 138/77 02/22/20 21:30 72 16 40 Intake and Output 02/22/20 02/23/20 19:00 07:00 Intake Total 860 ml 1140.000 ml Output Total 850 ml 1000 ml Balance 10 ml 140.000 ml Intake Free Water 200 ml 150 ml IV Total 330.000 ml Tube Feeding 660 ml 660 ml Output Urine Total 850 ml 1000 ml # Bowel Movements 4 3 Laboratory Tests 02/23/20 05:00: White Blood Count 7.8, Red Blood Count 3.23L, Hemoglobin 10.0L, Hematocrit 33.9L , Mean Corpuscular Volume 105H, Mean Corpuscular Hemoglobin 31.0, Mean Corpuscular Hemoglobin Concent 29.4L, Red Cell Distribution Width 18.0H, Platelet Count 192, Mean Platelet Volume 7.2, Neutrophils (%) (Auto) 67.7, Lymphocytes (%) (Auto) 9.0L, Monocytes (%) (Auto) 5.3, Eosinophils (%) (Auto) 17.1H, Basophils (%) (Auto) 0.8 Height (Feet): 5 Height (Inches): 8.00 Weight (Pounds): 212 Assessment/Plan Problem List: (1) Sepsis ICD Codes: A41.9 - Sepsis, unspecified organism SNOMED: 02659244 Qualifiers: Qualified Codes: A41.9 - Sepsis, unspecified organism; R65.20 - Severe sepsis without septic shock; J96.01 - Acute respiratory failure with hypoxia (2) Aspiration pneumonia ICD Codes: J69.0 - Pneumonitis due to inhalation of food and vomit SNOMED: 299889532 Qualifiers: Qualified Codes: J69.0 - Pneumonitis due to inhalation of food and vomit (3) Tracheostomy complication ICD Codes: J95.00 - Unspecified tracheostomy complication SNOMED: 19646161 Qualifiers: Qualified Codes: J95.00 - Unspecified tracheostomy complication (4) Tracheostomy malfunction ICD Codes: J95.03 - Malfunction of tracheostomy stoma SNOMED: 798870788 Status: progressing Assessment/Plan: dc to snf see dc summary off Oral Gonzalez MD Feb 23, 2020 20:58
[2020-02-24] VITALS (10 sets, daily range): BP systolic 128–180; BP diastolic 52–86
--- NOTE | 2020-02-24 03:13 | NUR ---
NURSE NOTES: Seen pt in bed. In semi- hernandez's position. Cleaned pt and sponge bath given. Pt has no pain. No facial grimace noted. O2 sat- 100%. Continue to plan of care.
[2020-02-24 05:09] LABS: HEMATOCRIT 30.8 % (42.0-52.0); HEMOGLOBIN 9.2 G/DL (14.2-18.0); MEAN CORPUSCULAR VOLUME 105 FL (80-99); PLATELET COUNT 179 K/UL (150-450); RED BLOOD COUNT 2.93 M/UL (4.70-6.10); WHITE BLOOD COUNT 7.2 K/UL (4.8-10.8)
[2020-02-24] MEDS: dilTIAZem HCl 30mg tab GT SCH ×2 (05:11→14:12)
[2020-02-24 05:40] LABS: ALANINE AMINOTRANSFERASE 11 U/L (12-78); ALBUMIN 1.7 G/DL (3.4-5.0); ALBUMIN/GLOBULIN RATIO 0.5 (1.0-2.7); ALKALINE PHOSPHATASE 46 U/L (46-116); ANION GAP -1 mmol/L (5-15); ASPARTATE AMINO TRANSFERASE 33 U/L (15-37); BILIRUBIN,TOTAL 1.2 MG/DL (0.2-1.0); BLOOD UREA NITROGEN 18 mg/dL (7-18); CALCIUM 8.1 MG/DL (8.5-10.1); CARBON DIOXIDE 36 MMOL/L (21-32); CHLORIDE 106 MMOL/L (98-107); CREATININE 0.7 MG/DL (0.55-1.30); PHOSPHORUS 2.3 MG/DL (2.5-4.9); SODIUM 141 MMOL/L (136-145)
--- NOTE | 2020-02-24 06:10 | NUR ---
NURSE NOTES: Cleaned pt, Noted to have large amount of bowel movement brown in color. Noted to have Hematuria on the aggarwal cath. Dr. Edgar made aware awaiting for response. Dr. Crawford was called, awaiting for response. Flushed aggarwal noted some sediments, Reinserted new one using Nepalese 18, patent and intact. Continue to monitor pt.
--- NOTE | 2020-02-24 06:18 | NUR ---
NURSE NOTES: Spoke to Dr. Edgar, no new orders noted at this time regarding the hematuria. Continue to plan of care.
[2020-02-24 06:36] LABS: BILIRUBIN,DIRECT 0.8 MG/DL (0.0-0.3)
--- NOTE | 2020-02-24 06:46 | Hematology/Onc Progress Note ---
Assessment/Plan Assessment/Plan IMPRESSION/RECS: 1. Leukcytosis with underlying Left lung pneumonia. --> recommend ABX vanc/zosyn-->yvette/vanc --> as per id --> wbc 18-->9 --> smear has been reviewed 2. Anemia due to chronic disease v iron deficiency --> anemia panel ordered --> transfuse prn hgb goal >7 --> occult blood --> hgb 11-->7-->9.1-->7.8->9.2 --> uro eval as needed for hematuria --> 1 unit 02/21 3. Lactic acidemia. --> likely due to infection -> ivfs started as well 4. hx Tracheal bleeding. --> per surgery --> improved --> vent, improved 5. Chronic tracheostomy. 6. Chronic vent dependence. 7. Chronic G-tube. 8. Previous CVA. 9. Dvt ppx heparin sq Appreciate consultation and dW Rn Subjective Constitutional: Denies: no symptoms, chills, fever, malaise, weakness, other HEENT: Denies: no symptoms, eye pain, blurred vision, tearing, double vision, ear pain, ear discharge, nose pain, nose congestion, throat pain, throat swelling, mouth pain, mouth swelling, other Cardiovascular: Denies: no symptoms, chest pain, edema, irregular heart rate, lightheadedness, palpitations, syncope, other Gastrointestinal/Abdominal: Denies: no symptoms, abdomen distended, abdominal pain, black stools, tarry stools, blood in stool, constipated, diarrhea, difficulty swallowing, nausea, poor appetite, poor fluid intake, rectal bleeding, vomiting, other Neurologic/Psychiatric: Denies: no symptoms, anxiety, depressed, emotional problems, headache, numbness, paresthesia, pre-existing deficit, seizure, tin gling, tremors, weakness, other Endocrine: Denies: no symptoms, excessive sweating, flushing, intolerance to cold, intolerance to heat, increased hunger, increased thirst, increased urine, unexplained weight gain, unexplained weight loss, other Hematologic/Lymphatic: Denies: no symptoms, anemia, easy bleeding, easy bruising, adenopathy, other Allergies: Coded Allergies: No Known Allergies (Unverified , 02/11/20) Subjective 11/8 on vent, trach, no bleeding, labs are noted, dw rn 02/15 nonverbal, vent and gtube, no major events noted 02/16 nv, meds ntoed, vent, no bleeding, dw r 02/17 asleep, on vent, and gtube, labs noted, hgb 9.7 02/18 no events, no bleeding, no new labs 02/19 labs pending, meds noted, no bleeding 02/21 labs reviewed, hgb 7.8, no hemoptysis, meds reviewed 02/22 remains on v/t, hgb is 10, no bleeding, no hemolysis 02/23 is with aggarwal cath, mild hematuria, for potential uro eval Objective Objective Current Medications Medications (Trade) Dose Ordered Sig/Natalia Route PRN Reason Start Time Stop Time Status Last Admin Dose Admin Acetaminophen (Tylenol) 650 mg Q4H PRN GT Temp >100.5 02/11/20 13:30 03/12/20 13:29 Acetaminophen (Tylenol) 650 mg Q4H PRN GT Mild Pain (Pain Scale 1-3) 02/11/20 13:45 03/12/20 13:44 02/22/20 09:59 Ascorbic Acid (Vitamin C) 500 mg DAILY GT 02/17/20 09:00 03/18/20 08:59 02/23/20 09:32 Chlorhexidine Gluconate (Shirley-Hex 2%) 1 applic DAILY@1999 TOPIC 02/19/20 20:00 05/19/20 19:59 02/23/20 20:10 Diltiazem HCl (Cardizem Tab) 30 mg Q8HR GT 02/23/20 16:48 03/24/20 16:47 02/24/20 05:11 Heparin Sodium (Porcine) (Heparin 5000 units/ml) 5,000 units EVERY 12 HOURS SUBQ 02/12/20 21:00 03/28/20 20:59 02/23/20 20:11 Hydralazine HCl (Apresoline) 10 mg Q4H PRN IV BP over 160 syst 02/16/20 10:10 05/16/20 10:09 02/22/20 12:21 Levetiracetam (Keppra) 1,500 mg Q12HR GT 02/11/20 21:00 03/12/20 20:59 02/23/20 20:10 Lisinopril (PriniviL) 20 mg BID GT 02/22/20 18:00 03/18/20 09:44 02/23/20 17:13 Pantoprazole (Protonix) 40 mg DAILY IVP 02/13/20 09:00 03/14/20 08:59 02/23/20 09:33 Vancomycin HCl (Vanco pharmacy to dose) 1 ea DAILY PRN MISC Per rx protocol 02/12/20 11:30 03/13/20 11:29 Vancomycin HCl 750 mg/Dextrose 275 ml @ 184 mls/hr Q12H IVPB 02/24/20 12:00 02/29/20 11:59 Zinc Oxide (Zinc Oxide) 1 applic THREE TIMES A DAY TOPIC 02/24/20 09:00 05/24/20 08:59 Zinc Sulfate (Zinc Sulfate) 220 mg DAILY GT 02/17/20 09:00 02/27/20 08:59 02/23/20 09:32 Last 24 Hour Vital Signs Date Time Temp Pulse Resp B/P (MAP) Pulse Ox O2 Delivery O2 Flow Rate FiO2 02/24/20 06:14 Mechanical Ventilator 02/24/20 05:11 70 143/65 02/24/20 04:45 60 14 35 02/24/20 04:00 Mechanical Ventilator 02/24/20 04:00 98.2 65 17 138/55 (82) 99 02/24/20 04:00 60 02/24/20 04:00 40 02/24/20 03:06 65 16 35 02/24/20 00:34 60 15 35 02/24/20 00:00 40 02/24/20 00:00 98.8 63 19 128/52 (77) 99 02/24/20 00:00 Mechanical Ventilator 02/24/20 00:00 69 02/23/20 22:34 67 16 35 02/23/20 22:13 68 143/68 02/23/20 20:32 64 13 35 02/23/20 20:00 40 02/23/20 20:00 98.4 61 20 115/58 (77) 99 02/23/20 20:00 59 02/23/20 20:00 Mechanical Ventilator 02/23/20 18:51 59 14 35 02/23/20 17:13 148/84 11/16/20 16:30 60 16 35 02/23/20 16:00 98.6 110 19 148/84 (105) 99 02/23/20 16:00 Mechanical Ventilator 02/23/20 16:00 40 02/23/20 16:00 105 02/23/20 15:00 96 17 35 02/23/20 13:59 72 135/67 02/23/20 13:05 66 14 35 02/23/20 12:00 40 02/23/20 12:00 Mechanical Ventilator 02/23/20 12:00 98.1 62 17 135/67 (89) 100 02/23/20 12:00 72 02/23/20 10:45 69 13 35 02/23/20 09:32 142/75 02/23/20 09:30 70 13 35 02/23/20 08:00 40 02/23/20 08:00 63 02/23/20 08:00 Mechanical Ventilator 02/23/20 08:00 98.8 65 15 142/75 (97) 99 02/23/20 06:30 70 13 35 02/23/20 05:56 72 132/77 02/23/20 05:24 64 12 40 02/23/20 04:00 Mechanical Ventilator 02/23/20 04:00 40 02/23/20 04:00 98.1 70 22 136/80 (98) 99 02/23/20 03:30 72 21 40 02/23/20 03:23 97 02/23/20 01:30 74 13 40 02/23/20 00:00 99.0 65 22 131/67 (88) 99 02/23/20 00:00 Mechanical Ventilator 02/22/20 23:56 40 02/22/20 23:47 65 02/22/20 23:11 65 13 40 02/22/20 21:46 70 138/77 02/22/20 21:30 72 16 40 02/22/20 20:00 68 02/22/20 20:00 97.5 70 20 135/80 (98) 100 02/22/20 20:00 Mechanical Ventilator 02/22/20 20:00 40 02/22/20 19:30 62 14 40 02/22/20 17:14 152/70 02/22/20 17:00 71 15 35 02/22/20 16:00 98.8 65 12 150/80 (103) 100 02/22/20 16:00 40 02/22/20 16:00 65 02/22/20 16:00 Mechanical Ventilator 02/22/20 15:00 61 12 40 02/22/20 13:38 72 147/69 02/22/20 13:00 68 15 40 02/22/20 12:21 171/81 02/22/20 12:00 40 02/22/20 12:00 Mechanical Ventilator 02/22/20 12:00 60 02/22/20 12:00 98.5 69 12 151/74 (99) 100 02/22/20 11:30 68 14 40 02/22/20 09:45 158/94 02/22/20 09:00 64 13 40 02/22/20 08:00 59 02/22/20 08:00 Mechanical Ventilator 02/22/20 08:00 40 02/22/20 08:00 99.0 70 12 158/94 (115) 100 l Intake and Output 02/23/20 02/24/20 19:00 07:00 Intake Total 1035.000 ml 805 ml Output Total 1650 ml Balance -615.000 ml 805 ml Intake Free Water 100 ml 200 ml IV Total 275.000 ml Tube Feeding 660 ml 605 ml Output Urine Total 1650 ml # Bowel Movements 2 3 Labs Test 02/22/20 04:00 02/22/20 08:55 02/23/20 05:00 02/23/20 23:00 White Blood Count 7.0 K/UL (4.8-10.8) 7.0 K/UL (4.8-10.8) 7.8 K/UL (4.8-10.8) Red Blood Count 2.52 M/UL (4.70-6.10) 2.97 M/UL (4.70-6.10) 3.23 M/UL (4.70-6.10) Hemoglobin 7.8 G/DL (14.2-18.0) 9.3 G/DL (14.2-18.0) 10.0 G/DL (14.2-18.0) Hematocrit 26.9 % (42.0-52.0) 31.6 % (42.0-52.0) 33.9 % (42.0-52.0) Mean Corpuscular Volume 107 FL (80-99) 106 FL (80-99) 105 FL (80-99) Mean Corpuscular Hemoglobin 31.1 PG (27.0-31.0) 31.2 PG (27.0-31.0) 31.0 PG (27.0-31.0) Mean Corpuscular Hemoglobin Concent 29.1 G/DL (32.0-36.0) 29.3 G/DL (32.0-36.0) 29.4 G/DL (32.0-36.0) Red Cell Distribution Width 18.0 % (11.6-14.8) 17.7 % (11.6-14.8) 18.0 % (11.6-14.8) Platelet Count 180 K/UL (150-450) 179 K/UL (150-450) 192 K/UL (150-450) Mean Platelet Volume 6.7 FL (6.5-10.1) 7.1 FL (6.5-10.1) 7.2 FL (6.5-10.1) Neutrophils (%) (Auto) % (45.0-75.0) 66.8 % (45.0-75.0) 67.7 % (45.0-75.0) Lymphocytes (%) (Auto) % (20.0-45.0) 10.5 % (20.0-45.0) 9.0 % (20.0-45.0) Monocytes (%) (Auto) % (1.0-10.0) 5.1 % (1.0-10.0) 5.3 % (1.0-10.0) Eosinophils (%) (Auto) % (0.0-3.0) 16.6 % (0.0-3.0) 17.1 % (0.0-3.0) Basophils (%) (Auto) % (0.0-2.0) 0.9 % (0.0-2.0) 0.8 % (0.0-2.0) Differential Total Cells Counted 100 Neutrophils % (Manual) 76 % (45-75) Lymphocytes % (Manual) 7 % (20-45) Monocytes % (Manual) 5 % (1-10) Eosinophils % (Manual) 12 % (0-3) Basophils % (Manual) 0 % (0-2) Band Neutrophils 0 % (0-8) Platelet Estimate Adequate Platelet Morphology Normal Hypochromasia 1+ Anisocytosis 1+ Macrocytosis 1+ Sodium Level 144 MMOL/L (136-145) Potassium Level 3.6 MMOL/L (3.5-5.1) Chloride Level 111 MMOL/L (98-107) Carbon Dioxide Level 32 MMOL/L (21-32) Anion Gap 1 mmol/L (5-15) Blood Urea Nitrogen 16 mg/dL (7-18) Creatinine 0.6 MG/DL (0.55-1.30) Estimat Glomerular Filtration Rate > 60 mL/min (>60) Glucose Level 91 MG/DL (74-106) Calcium Level 7.2 MG/DL (8.5-10.1) Phosphorus Level 2.0 MG/DL (2.5-4.9) Magnesium Level 1.9 MG/DL (1.8-2.4) Total Bilirubin 1.1 MG/DL (0.2-1.0) Direct Bilirubin 0.7 MG/DL (0.0-0.3) Aspartate Amino Transf (AST/SGOT) 37 U/L (15-37) Alanine Aminotransferase (ALT/SGPT) 20 U/L (12-78) Alkaline Phosphatase 49 U/L (46-116) Total Protein 5.3 G/DL (6.4-8.2) Albumin 1.7 G/DL (3.4-5.0) Globulin 3.6 g/dL Albumin/Globulin Ratio 0.5 (1.0-2.7) Vancomycin Level Trough 21.2 ug/mL (5.0-12.0) Test 02/24/20 04:00 White Blood Count 7.2 K/UL (4.8-10.8) Red Blood Count 2.93 M/UL (4.70-6.10) Hemoglobin 9.2 G/DL (14.2-18.0) Hematocrit 30.8 % (42.0-52.0) Mean Corpuscular Volume 105 FL (80-99) Mean Corpuscular Hemoglobin 31.4 PG (27.0-31.0) Mean Corpuscular Hemoglobin Concent 29.9 G/DL (32.0-36.0) Red Cell Distribution Width 18.0 % (11.6-14.8) Platelet Count 179 K/UL (150-450) Mean Platelet Volume 7.1 FL (6.5-10.1) Neutrophils (%) (Auto) % (45.0-75.0) Lymphocytes (%) (Auto) % (20.0-45.0) Monocytes (%) (Auto) % (1.0-10.0) Eosinophils (%) (Auto) % (0.0-3.0) Basophils (%) (Auto) % (0.0-2.0) Sodium Level 141 MMOL/L (136-145) Potassium Level 4.0 MMOL/L (3.5-5.1) Chloride Level 106 MMOL/L (98-107) Carbon Dioxide Level 36 MMOL/L (21-32) Anion Gap -1 mmol/L (5-15) Blood Urea Nitrogen 18 mg/dL (7-18) Creatinine 0.7 MG/DL (0.55-1.30) Estimat Glomerular Filtration Rate > 60 mL/min (>60) Glucose Level 96 MG/DL (74-106) Calcium Level 8.1 MG/DL (8.5-10.1) Phosphorus Level 2.3 MG/DL (2.5-4.9) Total Bilirubin 1.2 MG/DL (0.2-1.0) Direct Bilirubin 0.8 MG/DL (0.0-0.3) Aspartate Amino Transf (AST/SGOT) 33 U/L (15-37) Alanine Aminotransferase (ALT/SGPT) 11 U/L (12-78) Alkaline Phosphatase 46 U/L (46-116) Total Protein 5.4 G/DL (6.4-8.2) Albumin 1.7 G/DL (3.4-5.0) Globulin 3.7 g/dL Albumin/Globulin Ratio 0.5 (1.0-2.7) Height (Feet): 5 Height (Inches): 8.00 Weight (Pounds): 212 Objective Physical Exam General appearance: alert, no distress, appears stated age HEENT: Normocephalic, Teeth and gums normal trach + Lungs: clear to auscultation bilaterally Heart: regular rate and rhythm, S1, S2 normal, no murmur, click, rub or gallop Abdomen: soft, non-tender. Bowel sounds normal. No masses, ++ feeding tube Extremities: extremities normal, atraumatic, no cyanosis or edema Pulses: 2+ and symmetric Skin: Skin color, texture, turgor normal. No rashes or lesions Neurologic: Grossly normal Bryce Edgar MD Feb 24, 2020 06:46
--- NOTE | 2020-02-24 06:53 | NUR ---
NURSE HAND-OFF REPORT: Important Events on Shift: Hematuria on Johnson, Reinserted Johnson using fr 18, No SB noted. Patient Status: Stable Diet: Glucerna 1.5 @55cc/hr Pending Orders: none Pending Results/Labs: none Pending MD notification: none Latest Vital Signs: Temperature 98.2 , Pulse 70 , B/P 143 /65 , Respiratory Rate 14 , O2 SAT 99 , Mechanical Ventilator, O2 Flow Rate 5.0 . Vital Sign Comment: [] EKG Rhythm: Sinus Rhythm Rhythm change?: N Notified?: N -Dr. Jhonny RICARDO Response: Latest Wall Fall Score: 60 Fall Risk: High Risk Safety Measures: Call light Within Reach, Bed Alarm Zone 2, Side Rails Side Rails x3, Bed position Low and Locked. Fall Precautions: Yellow Socks Yellow Gown Door Sign Patient Fall Education Report given to [Bhumi Zimmerman RN].
--- NOTE | 2020-02-24 07:10 | NUR ---
NURSE NOTES: Received patient from LISSA James. patient is asleep in bed. patient is sinus rhythm on the monitor. Patient is on the ventilator at prescribed settings, saturating at 100%, tolerating well. Patient has a Gtube at prescribed settings, tolerating well. Patient has a aggarwal catheter draining well to gravity. On seizure precaution, padded rails, side rails up x2, bed to lowest position and locked. Will continue plan of care.
--- NOTE | 2020-02-24 08:07 | Cardiac Electrophysiology PN ---
Assessment/Plan Assessment/Plan 1. Atrial fibrillation with rapid ventricular response. Cardizem decreased to 30 mg tid as was rizwana down to 30s. Off anticoagulation for tracheal bleed. In SR with first degree AVB. Likely has SSS 2. Accelerated hypertension. On Cardizem 30 tid and Lisinopril 20 bid 3. Bleeding from the trach site. Fu by Surgery. S/P PRBC 4. Ventilator-respiratory failure. Fu by Dr. Otero. 5. Dysphagia, status post PEG placement. 6. Elevated white count and sepsis, on IV antibiotic. DW RN Subjective Subjective Fio2 40% and PEEP 5. No more tracheal bleed. DC to SNIF held as was rizwana down to 30s Cardizem decreased to 30 bid. Now has hematuria Objective Last 24 Hour Vital Signs Date Time Temp Pulse Resp B/P (MAP) Pulse Ox O2 Delivery O2 Flow Rate FiO2 02/24/20 07:44 98.4 62 17 141/70 (93) 100 02/24/20 06:14 Mechanical Ventilator 02/24/20 05:11 70 143/65 02/24/20 04:45 60 14 35 02/24/20 04:00 Mechanical Ventilator 02/24/20 04:00 98.2 65 17 138/55 (82) 99 02/24/20 04:00 60 02/24/20 04:00 40 02/24/20 03:06 65 16 35 02/24/20 00:34 60 15 35 02/24/20 00:00 40 02/24/20 00:00 98.8 63 19 128/52 (77) 99 02/24/20 00:00 Mechanical Ventilator 02/24/20 00:00 69 02/23/20 22:34 67 16 35 02/23/20 22:13 68 143/68 02/23/20 20:32 64 13 35 02/23/20 20:00 40 02/23/20 20:00 98.4 61 20 115/58 (77) 99 02/23/20 20:00 59 02/23/20 20:00 Mechanical Ventilator 02/23/20 18:51 59 14 35 02/23/20 17:13 148/84 02/23/20 16:30 60 16 35 02/23/20 16:00 98.6 110 19 148/84 (105) 99 02/23/20 16:00 Mechanical Ventilator 02/23/20 16:00 40 02/23/20 16:00 105 02/23/20 15:00 96 17 35 02/23/20 13:59 72 135/67 02/23/20 13:05 66 14 35 02/23/20 12:00 40 02/23/20 12:00 Mechanical Ventilator 02/23/20 12:00 98.1 62 17 135/67 (89) 100 02/23/20 12:00 72 02/23/20 10:45 69 13 35 02/23/20 09:32 142/75 02/23/20 09:30 70 13 35 Intake and Output 02/23/20 02/24/20 19:00 07:00 Intake Total 1035.000 ml 805 ml Output Total 1650 ml Balance -615.000 ml 805 ml Intake Free Water 100 ml 200 ml IV Total 275.000 ml Tube Feeding 660 ml 605 ml Output Urine Total 1650 ml # Bowel Movements 2 3 Laboratory Tests Test 02/23/20 23:00 02/24/20 04:00 Vancomycin Level Trough 21.2 ug/mL (5.0-12.0) H White Blood Count 7.2 K/UL (4.8-10.8) Red Blood Count 2.93 M/UL (4.70-6.10) L Hemoglobin 9.2 G/DL (14.2-18.0) L Hematocrit 30.8 % (42.0-52.0) L Mean Corpuscular Volume 105 FL (80-99) H Mean Corpuscular Hemoglobin 31.4 PG (27.0-31.0) H Mean Corpuscular Hemoglobin Concent 29.9 G/DL (32.0-36.0) L Red Cell Distribution Width 18.0 % (11.6-14.8) H Platelet Count 179 K/UL (150-450) Mean Platelet Volume 7.1 FL (6.5-10.1) Neutrophils (%) (Auto) % (45.0-75.0) Lymphocytes (%) (Auto) % (20.0-45.0) Monocytes (%) (Auto) % (1.0-10.0) Eosinophils (%) (Auto) % (0.0-3.0) Basophils (%) (Auto) % (0.0-2.0) Sodium Level 141 MMOL/L (136-145) Potassium Level 4.0 MMOL/L (3.5-5.1) Chloride Level 106 MMOL/L (98-107) Carbon Dioxide Level 36 MMOL/L (21-32) H Anion Gap -1 mmol/L (5-15) L Blood Urea Nitrogen 18 mg/dL (7-18) Creatinine 0.7 MG/DL (0.55-1.30) Estimat Glomerular Filtration Rate > 60 mL/min (>60) Glucose Level 96 MG/DL (74-106) Calcium Level 8.1 MG/DL (8.5-10.1) L Phosphorus Level 2.3 MG/DL (2.5-4.9) L Total Bilirubin 1.2 MG/DL (0.2-1.0) H Direct Bilirubin 0.8 MG/DL (0.0-0.3) H Aspartate Amino Transf (AST/SGOT) 33 U/L (15-37) Alanine Aminotransferase (ALT/SGPT) 11 U/L (12-78) L Alkaline Phosphatase 46 U/L (46-116) Total Protein 5.4 G/DL (6.4-8.2) L Albumin 1.7 G/DL (3.4-5.0) L Globulin 3.7 g/dL Albumin/Globulin Ratio 0.5 (1.0-2.7) L Objective HEAD AND NECK: No JVD. Status post tracheostomy LUNGS: Coarse rhonchi. CARDIOVASCULAR: Shows irregular S1 and S2 with no gallop. ABDOMEN: Soft. Status post G-tube. EXTREMITIES: No pitting edema. Liang Barry MD Feb 24, 2020 08:07
[2020-02-24] MEDS: Zinc Sulfate 220mg GT SCH (08:53)
[2020-02-24] MEDS: Pantoprazole Inj IVP SCH (08:53)
[2020-02-24] MEDS: Lisinopril 20mg tab GT SCH (08:53)
[2020-02-24] MEDS: levETIRAcetam 500mg/5ml Liquid GT SCH (08:54)
[2020-02-24] MEDS: Ascorbic Acid 500mg tab GT SCH (08:54)
[2020-02-24] MEDS: Zinc Oxide Oint 2oz TOPIC SCH ×2 (09:00→12:43)
[2020-02-24] MEDS: Heparin 5000 units/ml inj SUBQ SCH (09:00)
--- NOTE | 2020-02-24 09:00 | NUR ---
NURSE NOTES: Per charge nurse, informed this nurse that patient is to be discharged back to [facility], discontinue Hospital medications, discontinue IV antibiotics, continue home medications to SNF.
[2020-02-24] MEDS: Phospha 250 Neutral tab GT SCH ×2 (09:20→13:00)
--- NOTE | 2020-02-24 10:28 | Pulmonology Progress Note ---
Subjective ROS Limited/Unobtainable: Yes Interval Events: None new Constitutional: Denies: fever HEENT: Repors: no symptoms Respiratory: Reports: no symptoms Cardiovascular: Reports: no symptoms Gastrointestinal/Abdominal: Reports: other Allergies: Coded Allergies: No Known Allergies (Unverified , 02/11/20) Objective Last 24 Hour Vital Signs Date Time Temp Pulse Resp B/P (MAP) Pulse Ox O2 Delivery O2 Flow Rate FiO2 02/24/20 08:53 141/70 02/24/20 07:44 98.4 62 17 141/70 (93) 100 02/24/20 07:10 57 14 35 02/24/20 06:14 Mechanical Ventilator 02/24/20 05:11 70 143/65 02/24/20 04:45 60 14 35 02/24/20 04:00 Mechanical Ventilator 02/24/20 04:00 98.2 65 17 138/55 (82) 99 02/24/20 04:00 60 02/24/20 04:00 40 02/24/20 03:06 65 16 35 02/24/20 00:34 60 15 35 02/24/20 00:00 40 02/24/20 00:00 98.8 63 19 128/52 (77) 99 02/24/20 00:00 Mechanical Ventilator 02/24/20 00:00 69 02/23/20 22:34 67 16 35 02/23/20 22:13 68 143/68 02/23/20 20:32 64 13 35 02/23/20 20:00 40 02/23/20 20:00 98.4 61 20 115/58 (77) 99 02/23/20 20:00 59 02/23/20 20:00 Mechanical Ventilator 02/23/20 18:51 59 14 35 02/23/20 17:13 148/84 02/23/20 16:30 60 16 35 02/23/20 16:00 98.6 110 19 148/84 (105) 99 02/23/20 16:00 Mechanical Ventilator 02/23/20 16:00 40 02/23/20 16:00 105 02/23/20 15:00 96 17 35 02/23/20 13:59 72 135/67 02/23/20 13:05 66 14 35 02/23/20 12:00 40 02/23/20 12:00 Mechanical Ventilator 02/23/20 12:00 98.1 62 17 135/67 (89) 100 02/23/20 12:00 72 02/23/20 10:45 69 13 35 Intake and Output 02/23/20 02/24/20 19:00 07:00 Intake Total 1035.000 ml 805 ml Output Total 1650 ml Balance -615.000 ml 805 ml Intake Free Water 100 ml 200 ml IV Total 275.000 ml Tube Feeding 660 ml 605 ml Output Urine Total 1650 ml # Bowel Movements 2 3 General Appearance: no acute distress HEENT: normocephalic Respiratory: chest wall non-tender, lungs clear Cardiovascular: normal peripheral pulses Abdomen: normal bowel sounds Laboratory Tests 02/23/20 23:00: Vancomycin Level Trough 21.2H 02/24/20 04:00: White Blood Count 7.2, Red Blood Count 2.93L, Hemoglobin 9.2L, Hematocrit 30.8L, Mean Corpuscular Volume 105H, Mean Corpuscular Hemoglobin 31.4H, Mean Corpuscular Hemoglobin Concent 29.9L, Red Cell Distribution Width 18.0H, Platelet Count 179, Mean Platelet Volume 7.1, Neutrophils (%) (Auto) , Lymphocytes (%) (Auto) , Monocytes (%) (Auto) , Eosinophils (%) (Auto) , Basophils (%) (Auto) , Sodium Level 141, Potassium Level 4.0, Chloride Level 106, Carbon Dioxide Level 36H, Anion Gap -1L, Blood Urea Nitrogen 18, Creatinine 0.7, Estimat Glomerular Filtration Rate > 60, Glucose Level 96, Calcium Level 8.1L, Phosphorus Level 2.3L, Total Bilirubin 1.2H, Direct Bilirubin 0.8H, Aspartate Amino Transf (AST/SGOT) 33, Alanine Aminotransferase (ALT/SGPT) 11L, Alkaline Phosphatase 46, Total Protein 5.4L, Albumin 1.7L, Globulin 3.7, Albumin/Globulin Ratio 0.5L Current Medications Medications (Trade) Dose Ordered Sig/Natalia Route PRN Reason Start Time Stop Time Status Last Admin Dose Admin Acetaminophen (Tylenol) 650 mg Q4H PRN GT Temp >100.5 02/11/20 13:30 03/12/20 13:29 Acetaminophen (Tylenol) 650 mg Q4H PRN GT Mild Pain (Pain Scale 1-3) 02/11/20 13:45 12/4/20 13:44 02/22/20 09:59 Ascorbic Acid (Vitamin C) 500 mg DAILY GT 02/17/20 09:00 03/18/20 08:59 02/24/20 08:54 Chlorhexidine Gluconate (Shirley-Hex 2%) 1 applic DAILY@2000 TOPIC 02/19/20 20:00 05/19/20 19:59 02/23/20 20:10 Diltiazem HCl (Cardizem Tab) 30 mg Q8HR GT 02/23/20 16:48 03/24/20 16:47 02/24/20 05:11 Heparin Sodium (Porcine) (Heparin 5000 units/ml) 5,000 units EVERY 12 HOURS SUBQ 02/12/20 21:00 03/28/20 20:59 02/23/20 20:11 Hydralazine HCl (Apresoline) 10 mg Q4H PRN IV BP over 160 syst 02/16/20 10:10 05/16/20 10:09 02/22/20 12:21 Levetiracetam (Keppra) 1,500 mg Q12HR GT 02/11/20 21:00 03/12/20 20:59 02/24/20 08:54 Lisinopril (PriniviL) 20 mg BID GT 02/22/20 18:00 03/18/20 09:44 02/24/20 08:53 Pantoprazole (Protonix) 40 mg DAILY IVP 02/13/20 09:00 03/14/20 08:59 02/24/20 08:53 Phosphorus (Phospha 250 Neutral) 250 mg THREE TIMES A DAY GT 02/24/20 09:00 03/25/20 08:59 02/24/20 09:20 Vancomycin HCl (Vanco pharmacy to dose) 1 ea DAILY PRN MISC Per rx protocol 02/12/20 11:30 03/13/20 11:29 Vancomycin HCl 750 mg/Dextrose 275 ml @ 184 mls/hr Q12H IVPB 02/24/20 12:00 02/29/20 11:59 Zinc Oxide (Zinc Oxide) 1 applic THREE TIMES A DAY TOPIC 02/24/20 09:00 05/24/20 08:59 Zinc Sulfate (Zinc Sulfate) 220 mg DAILY GT 02/17/20 09:00 02/27/20 08:59 02/24/20 08:53 Assessment/Plan Assessment/Plan IMPRESSION: 1. Bilateral lung pneumonia (HCAP) with pseudomonas/stenotrophomonas 2. Leukocytosis. Resolved 3. Lactic acidemia. 4. Endo-tracheal bleeding/hemoptysis... Hgb stable post-transfusion 5. Chronic tracheostomy. 6. Chronic vent dependence. 7. Chronic G-tube. 8. Previous CVA. DISCUSSION: Continue broad-spectrum antibiotics. Oxygen and pulmonary hygiene. Tracheostomy site is clean CT chest confirms dense bilateral pneumonia Micro - stentotrophomonas/pseudomonas I will follow carefully. DVT and GI prophylaxes. On AC mode; FiO2 35% PICC line in place OK to dc back to SNF Will need IV abx (Meropenem) Kandy Golden Omar Syed MD Feb 24, 2020 10:28
--- NOTE | 2020-02-24 10:38 | NUR ---
*-*DISCHARGE PLANNED*-* PATIENT HAS BEEN ACCEPTED AND WILL BE DISCHARGED BACK TO: [facility] P: [phone] FOR NURSE TO NURSE REPORT ROOM# 10.[facility] TRANSPORTATION SET FOR 12PM S/W NAMAN [id number] S/W PATIENTS DAUGHTER, SABRINA SALCEDO, WHO IS IN AGREEMENT WITH DISCHARGE PLAN.
--- NOTE | 2020-02-24 10:42 | NUR ---
NURSE NOTES: Patient's daughter called nurse station, this nurse informed daughter that patient will be discharged back to [facility] today per orders of Dr. Crawford.
--- NOTE | 2020-02-24 10:55 | NUR ---
NURSE NOTES: Called [facility] and gave report to LISSA Welch. Noted.
--- NOTE | 2020-02-24 11:05 | Infectious Diseases Prog Note ---
Assessment/Plan Assessment/Plan IMPRESSION: Sepsis with Staph aureus (MRSA) Pseudomonas, E coli & Steotrophomonas pneumonia, treated Tracheostomy complication with bleeding. 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 RECOMMENDATIONS: Continue IV Vancomycin X 1` day Agree with discharge Case was D/W RN Subjective ROS Limited/Unobtainable: Yes Constitutional: Denies: fever Allergies: Coded Allergies: No Known Allergies (Unverified , 02/11/20) Objective Last 24 Hour Vital Signs Date Time Temp Pulse Resp B/P (MAP) Pulse Ox O2 Delivery O2 Flow Rate FiO2 02/24/20 09:45 62 12 35 02/24/20 08:53 141/70 02/24/20 08:00 40 02/24/20 08:00 Mechanical Ventilator 02/24/20 08:00 58 02/24/20 07:44 98.4 62 17 141/70 (93) 100 02/24/20 07:10 57 14 35 02/24/20 06:14 Mechanical Ventilator 02/24/20 05:11 70 143/65 02/24/20 04:45 60 14 35 02/24/20 04:00 Mechanical Ventilator 02/24/20 04:00 98.2 65 17 138/55 (82) 99 02/24/20 04:00 60 02/24/20 04:00 40 02/24/20 03:06 65 16 35 02/24/20 00:34 60 15 35 02/24/20 00:00 40 02/24/20 00:00 98.8 63 19 128/52 (77) 99 02/24/20 00:00 Mechanical Ventilator 02/24/20 00:00 69 02/23/20 22:34 67 16 35 02/23/20 22:13 68 143/68 02/23/20 20:32 64 13 35 02/23/20 20:00 40 02/23/20 20:00 98.4 61 20 115/58 (77) 99 02/23/20 20:00 59 02/23/20 20:00 Mechanical Ventilator 02/23/20 18:51 59 14 35 02/23/20 17:13 148/84 02/23/20 16:30 60 16 35 02/23/20 16:00 98.6 110 19 148/84 (105) 99 02/23/20 16:00 Mechanical Ventilator 02/23/20 16:00 40 02/23/20 16:00 105 02/23/20 15:00 96 17 35 02/23/20 13:59 72 135/67 02/23/20 13:05 66 14 35 02/23/20 12:00 40 02/23/20 12:00 Mechanical Ventilator 02/23/20 12:00 98.1 62 17 135/67 (89) 100 02/23/20 12:00 72 Height (Feet): 5 Height (Inches): 8.00 Weight (Pounds): 212 HEENT: mucous membranes moist, status post trach Respiratory/Chest: lungs clear, other - on ventilator Cardiovascular: normal rate Abdomen: soft, non tender Extremities: other - edema Neurologic/Psychiatric: aphasia Laboratory Tests Test 02/23/20 23:00 02/24/20 04:00 Vancomycin Level Trough 21.2 ug/mL (5.0-12.0) H White Blood Count 7.2 K/UL (4.8-10.8) Red Blood Count 2.93 M/UL (4.70-6.10) L Hemoglobin 9.2 G/DL (14.2-18.0) L Hematocrit 30.8 % (42.0-52.0) L Mean Corpuscular Volume 105 FL (80-99) H Mean Corpuscular Hemoglobin 31.4 PG (27.0-31.0) H Mean Corpuscular Hemoglobin Concent 29.9 G/DL (32.0-36.0) L Red Cell Distribution Width 18.0 % (11.6-14.8) H Platelet Count 179 K/UL (150-450) Mean Platelet Volume 7.1 FL (6.5-10.1) Neutrophils (%) (Auto) % (45.0-75.0) Lymphocytes (%) (Auto) % (20.0-45.0) Monocytes (%) (Auto) % (1.0-10.0) Eosinophils (%) (Auto) % (0.0-3.0) Basophils (%) (Auto) % (0.0-2.0) Sodium Level 141 MMOL/L (136-145) Potassium Level 4.0 MMOL/L (3.5-5.1) Chloride Level 106 MMOL/L (98-107) Carbon Dioxide Level 36 MMOL/L (21-32) H Anion Gap -1 mmol/L (5-15) L Blood Urea Nitrogen 18 mg/dL (7-18) Creatinine 0.7 MG/DL (0.55-1.30) Estimat Glomerular Filtration Rate > 60 mL/min (>60) Glucose Level 96 MG/DL (74-106) Calcium Level 8.1 MG/DL (8.5-10.1) L Phosphorus Level 2.3 MG/DL (2.5-4.9) L Total Bilirubin 1.2 MG/DL (0.2-1.0) H Direct Bilirubin 0.8 MG/DL (0.0-0.3) H Aspartate Amino Transf (AST/SGOT) 33 U/L (15-37) Alanine Aminotransferase (ALT/SGPT) 11 U/L (12-78) L Alkaline Phosphatase 46 U/L (46-116) Total Protein 5.4 G/DL (6.4-8.2) L Albumin 1.7 G/DL (3.4-5.0) L Globulin 3.7 g/dL Albumin/Globulin Ratio 0.5 (1.0-2.7) L Current Medications Medications (Trade) Dose Ordered Sig/Natalia Route PRN Reason Start Time Stop Time Status Last Admin Dose Admin Acetaminophen (Tylenol) 650 mg Q4H PRN GT Temp >100.5 02/11/20 13:30 03/12/20 13:29 Acetaminophen (Tylenol) 650 mg Q4H PRN GT Mild Pain (Pain Scale 1-3) 02/11/20 13:45 03/12/20 13:44 02/22/20 09:59 Ascorbic Acid (Vitamin C) 500 mg DAILY GT 02/17/20 09:00 03/18/20 08:59 02/24/20 08:54 Chlorhexidine Gluconate (Shirley-Hex 2%) 1 applic DAILY@1999 TOPIC 02/19/20 20:00 05/19/20 19:59 02/23/20 20:10 Diltiazem HCl (Cardizem Tab) 30 mg Q8HR GT 02/23/20 16:48 03/24/20 16:47 02/24/20 05:11 Heparin Sodium (Porcine) (Heparin 5000 units/ml) 5,000 units EVERY 12 HOURS SUBQ 02/12/20 21:00 03/28/20 20:59 02/23/20 20:11 Hydralazine HCl (Apresoline) 10 mg Q4H PRN IV BP over 160 syst 02/16/20 10:10 05/16/20 10:09 02/22/20 12:21 Levetiracetam (Keppra) 1,500 mg Q12HR GT 02/11/20 21:00 03/12/20 20:59 02/24/20 08:54 Lisinopril (PriniviL) 20 mg BID GT 02/22/20 18:00 03/18/20 09:44 02/24/20 08:53 Pantoprazole (Protonix) 40 mg DAILY IVP 02/13/20 09:00 03/14/20 08:59 02/24/20 08:53 Phosphorus (Phospha 250 Neutral) 250 mg THREE TIMES A DAY GT 02/24/20 09:00 03/25/20 08:59 02/24/20 09:20 Vancomycin HCl (Vanco pharmacy to dose) 1 ea DAILY PRN MISC Per rx protocol 02/12/20 11:30 03/13/20 11:29 Vancomycin HCl 750 mg/Dextrose 275 ml @ 184 mls/hr Q12H IVPB 02/24/20 12:00 02/29/20 11:59 Zinc Oxide (Zinc Oxide) 1 applic THREE TIMES A DAY TOPIC 02/24/20 09:00 05/24/20 08:59 Zinc Sulfate (Zinc Sulfate) 220 mg DAILY GT 02/17/20 09:00 02/27/20 08:59 02/24/20 08:53 Ulises Vasquez MD Feb 24, 2020 11:05
[2020-02-24] MEDS ORDERED: Vancomycin 750mg/D5W 275ml IVPB SCH ×2 (12:00)
--- NOTE | 2020-02-24 12:00 | NUR ---
NURSE NOTES: Left upper arm double lumen PICC discontinued per orders of Dr. Crawford. PICC line tip noted intact, applied pressure to exit site for five minutes, no active bleeding noted. Placed pressure dressing. Will monitor.
--- NOTE | 2020-02-24 12:17 | NUR ---
NURSE NOTES: Called [facility] to follow up on patient's transportation. Spoke with ambulance personnel, per personnel transportation will be in-bound between 1200 and 1230. Noted. Charge nurse made aware. Will continue to monitor patient.
--- NOTE | 2020-02-24 13:29 | NUR ---
NURSE NOTES: Second call to [facility] to follow up on patient's transportation. This nurse spoke with Gustavo, per Gustavo transportation will be in-bound in 5 to 10 minutes. Noted. Will continue to monitor patient.
[2020-02-24] MEDS ORDERED: NS Irrig 1000ml ONE (14:26)
[2020-02-24] MEDS ORDERED: Tubing IV Secondary IV ONE (14:26)
[2020-02-24] MEDS ORDERED: NS 275ml ONE (14:26)
--- NOTE | 2020-02-24 15:14 | Surgery Progress Note ---
Surgery Progress Note Subjective Symptoms: improved, tolerating diet, passing flatus, BM Additional Comments d/c planning no n/v improved Objective Last 24 Hour Vital Signs Date Time Temp Pulse Resp B/P (MAP) Pulse Ox O2 Delivery O2 Flow Rate FiO2 02/24/20 15:05 169/70 (103) 02/24/20 14:12 180/83 (115) 02/24/20 14:12 76 178/88 02/24/20 12:44 63 14 35 02/24/20 12:00 Mechanical Ventilator 02/24/20 12:00 59 02/24/20 12:00 40 02/24/20 11:55 97.9 62 19 154/74 (100) 100 02/24/20 11:45 62 12 35 02/24/20 09:45 62 12 35 02/24/20 09:40 62 12 35 02/24/20 08:53 141/70 02/24/20 08:00 40 02/24/20 08:00 Mechanical Ventilator 02/24/20 08:00 58 02/24/20 07:44 98.4 62 17 141/70 (93) 100 02/24/20 07:10 57 14 35 02/24/20 06:14 Mechanical Ventilator 02/24/20 05:11 70 143/65 02/24/20 04:45 60 14 35 02/24/20 04:00 Mechanical Ventilator 02/24/20 04:00 98.2 65 17 138/55 (82) 99 02/24/20 04:00 60 02/24/20 04:00 40 02/24/20 03:06 65 16 35 02/24/20 00:34 60 15 35 02/24/20 00:00 40 02/24/20 00:00 98.8 63 19 128/52 (77) 99 02/24/20 00:00 Mechanical Ventilator 02/24/20 00:00 69 02/23/20 22:34 67 16 35 02/23/20 22:13 68 143/68 02/23/20 20:32 64 13 35 02/23/20 20:00 40 02/23/20 20:00 98.4 61 20 115/58 (77) 99 02/23/20 20:00 59 02/23/20 20:00 Mechanical Ventilator 02/23/20 18:51 59 14 35 02/23/20 17:13 148/84 02/23/20 16:30 60 16 35 02/23/20 16:00 98.6 110 19 148/84 (105) 99 02/23/20 16:00 Mechanical Ventilator 02/23/20 16:00 40 02/23/20 16:00 105 I&O Intake and Output 02/23/20 02/24/20 19:00 07:00 Intake Total 1035.000 ml 805 ml Output Total 1650 ml Balance -615.000 ml 805 ml Intake Free Water 100 ml 200 ml IV Total 275.000 ml Tube Feeding 660 ml 605 ml Output Urine Total 1650 ml # Bowel Movements 2 3 Dressing: saturated Cardiovascular: RSR Respiratory: decreased breath sounds Abdomen: soft, non-tender, present bowel sounds Extremities: no tenderness, no cyanosis Laboratory Tests Test 02/23/20 23:00 02/24/20 04:00 Vancomycin Level Trough 21.2 ug/mL (5.0-12.0) H White Blood Count 7.2 K/UL (4.8-10.8) Red Blood Count 2.93 M/UL (4.70-6.10) L Hemoglobin 9.2 G/DL (14.2-18.0) L Hematocrit 30.8 % (42.0-52.0) L Mean Corpuscular Volume 105 FL (80-99) H Mean Corpuscular Hemoglobin 31.4 PG (27.0-31.0) H Mean Corpuscular Hemoglobin Concent 29.9 G/DL (32.0-36.0) L Red Cell Distribution Width 18.0 % (11.6-14.8) H Platelet Count 179 K/UL (150-450) Mean Platelet Volume 7.1 FL (6.5-10.1) Neutrophils (%) (Auto) % (45.0-75.0) Lymphocytes (%) (Auto) % (20.0-45.0) Monocytes (%) (Auto) % (1.0-10.0) Eosinophils (%) (Auto) % (0.0-3.0) Basophils (%) (Auto) % (0.0-2.0) Sodium Level 141 MMOL/L (136-145) Potassium Level 4.0 MMOL/L (3.5-5.1) Chloride Level 106 MMOL/L (98-107) Carbon Dioxide Level 36 MMOL/L (21-32) H Anion Gap -1 mmol/L (5-15) L Blood Urea Nitrogen 18 mg/dL (7-18) Creatinine 0.7 MG/DL (0.55-1.30) Estimat Glomerular Filtration Rate > 60 mL/min (>60) Glucose Level 96 MG/DL (74-106) Calcium Level 8.1 MG/DL (8.5-10.1) L Phosphorus Level 2.3 MG/DL (2.5-4.9) L Total Bilirubin 1.2 MG/DL (0.2-1.0) H Direct Bilirubin 0.8 MG/DL (0.0-0.3) H Aspartate Amino Transf (AST/SGOT) 33 U/L (15-37) Alanine Aminotransferase (ALT/SGPT) 11 U/L (12-78) L Alkaline Phosphatase 46 U/L (46-116) Total Protein 5.4 G/DL (6.4-8.2) L Albumin 1.7 G/DL (3.4-5.0) L Globulin 3.7 g/dL Albumin/Globulin Ratio 0.5 (1.0-2.7) L Plan Problems: (1) Sepsis Assessment & Plan: H&H has been stable since transfusion. Still with bloody aspirate with deep suctioning. No bleeding around tracheostomy site. LFTs remain elevated T bili direct bili ultrasound ordered (2) Aspiration pneumonia (3) Tracheostomy complication Assessment & Plan: This 84-year-old male with bleeding from tracheostomy noted in facility. Since has had some residue within the suctioning. Trach evaluated bedside no active bleeding noted. No skin issues. Mild granulation tissue. Able to manipulate and function without problem. Deep suctioning performed no active bleeding identified. Potential isolated incident we will continue to monitor over the next 2 to 3 days to ensure no active bleeding or source of bleeding that requires intervention. Thank you allowing me to participate in patient's care There is infiltrate at the left lung base. There may be some pleural fluid. The heart size is normal. There is a tracheostomy. noted some blood with suction trach okay ? bronch as per pulm Impression: Left basilar infiltrate and possible pleural fluid Tracheostomy (4) Tracheostomy malfunction Assessment & Plan: DAILY ESTIMATED NEEDS: Needs based on Critical care, wound/ 76kg abw 22-28 kcals/kg 0446-8849 total kcals 1.25-2 g protein/kg 95-152 g total protein 25-30 mL/kg 8801-8035 total fluid mLs NUTRITION DIAGNOSIS: * Swallowing difficulty R/T respiratory status as evidenced by trach/vent dep, PEG dep, NPO at this time. * Increased kcal/prot/micronutrients needs R/T wound healing as evidenced by pt admitted w/ stage 3 R lateral ankle wound. CURRENT TF: Vital @30 ENTERAL NUTRITION RECOMMENDATIONS: Glucerna 1.5 @ 55ml/hr x 24 hrs to provide 1320ml, 1980kcal, 109g prot, 1002ml free water * As medically appropriate, initiate Glucerna 1.5 @ 25ml/hr x 6hrs * Advance 10ml q 4-6 hrs as tolerated to goal rate * HOB over 30 degrees/ water flush per MD ADDITIONAL RECOMMENDATIONS: * Calibrated bedscale wt * Wound healing: TF rec @ goal provides 100% RDI add Vit C 500mg QD, ZnSO4 220mg QD x 10 days Yuriy BID via PEG w/ TF order * Monitor BGs, need for NISS * Rekha rodriguez, rec repletion Yousuf Samayoa Feb 24, 2020 15:14
--- NOTE | 2020-02-24 16:26 | Nephrology Progress Note ---
Assessment/Plan Problem List: (1) Electrolyte imbalance (2) HTN (hypertension) (3) Aspiration pneumonia (4) Tracheostomy complication (5) Anemia (6) Chronic respiratory failure Assessment Electrolyte imbalance, hypokalemia Normal BUN/creatinine Sepsis leukocytosis tachycardia with left-sided pneumonia Tracheostomy complication with bleeding Anemia Ventilator dependent respiratory failure Atrial fibrillation PEG Plan February 23: Labs reviewed. Low phosphorus level replaced. Other renal parameters stable. Continue per current consultants. February 22: No labs drawn today. Blood pressure better controlled. Continue to monitor renal parameters. February 21: Labs reviewed. Lisinopril dose increased for better BP control. Phosphorus supplement intravenously ordered. Continue per consultants. February 20: No labs drawn today. Will order labs tomorrow. Clinically stable. Continue per consultants. Remains full code. February 19: Labs reviewed. Phosphorus supplement ordered. Continue per consultants. February 18: No chemistry panel done today. Stable from renal standpoint of view. February 17: Labs reviewed. Abnormal electrolytes addressed. Blood pressure medication adjusted. Continue as is. February 16: Potassium supplement, phosphorus, magnesium supplement as needed. Monitor electrolytes and chemistries. Discontinued IV fluid. Adjust blood pressure medication, Zestril added and 1 dose of Lasix 20 mg given Subjective ROS Limited/Unobtainable: Yes Objective Objective Last 24 Hour Vital Signs Date Time Temp Pulse Resp B/P (MAP) Pulse Ox O2 Delivery O2 Flow Rate FiO2 02/24/20 16:00 40 02/24/20 16:00 Mechanical Ventilator 02/24/20 15:59 137/78 (97) 02/24/20 15:31 161/83 02/24/20 15:31 97.0 61 19 161/83 (109) 100 02/24/20 15:05 169/70 (103) 02/24/20 14:12 180/83 (115) 02/24/20 14:12 76 178/88 02/24/20 12:44 63 14 35 02/24/20 12:00 Mechanical Ventilator 02/24/20 12:00 59 02/24/20 12:00 40 02/24/20 11:55 97.9 62 19 154/74 (100) 100 02/24/20 11:45 62 12 35 02/24/20 09:45 62 12 35 02/24/20 09:40 62 12 35 11/17/20 08:53 141/70 02/24/20 08:00 40 02/24/20 08:00 Mechanical Ventilator 02/24/20 08:00 58 02/24/20 07:44 98.4 62 17 141/70 (93) 100 02/24/20 07:10 57 14 35 02/24/20 06:14 Mechanical Ventilator 02/24/20 05:11 70 143/65 02/24/20 04:45 60 14 35 02/24/20 04:00 Mechanical Ventilator 02/24/20 04:00 98.2 65 17 138/55 (82) 99 02/24/20 04:00 60 02/24/20 04:00 40 02/24/20 03:06 65 16 35 02/24/20 00:34 60 15 35 02/24/20 00:00 40 02/24/20 00:00 98.8 63 19 128/52 (77) 99 02/24/20 00:00 Mechanical Ventilator 02/24/20 00:00 69 02/23/20 22:34 67 16 35 02/23/20 22:13 68 143/68 02/23/20 20:32 64 13 35 02/23/20 20:00 40 02/23/20 20:00 98.4 61 20 115/58 (77) 99 02/23/20 20:00 59 02/23/20 20:00 Mechanical Ventilator 02/23/20 18:51 59 14 35 02/23/20 17:13 148/84 02/23/20 16:30 60 16 35 Intake and Output 02/23/20 02/24/20 19:00 07:00 Intake Total 1035.000 ml 805 ml Output Total 1650 ml Balance -615.000 ml 805 ml Intake Free Water 100 ml 200 ml IV Total 275.000 ml Tube Feeding 660 ml 605 ml Output Urine Total 1650 ml # Bowel Movements 2 3 Laboratory Tests 02/23/20 23:00: Vancomycin Level Trough 21.2H 02/24/20 04:00: White Blood Count 7.2, Red Blood Count 2.93L, Hemoglobin 9.2L, Hematocrit 30.8L, Mean Corpuscular Volume 105H, Mean Corpuscular Hemoglobin 31.4H, Mean Corpuscular Hemoglobin Concent 29.9L, Red Cell Distribution Width 18.0H, Platelet Count 179, Mean Platelet Volume 7.1, Neutrophils (%) (Auto) , Lymphocytes (%) (Auto) , Monocytes (%) (Auto) , Eosinophils (%) (Auto) , Basophils (%) (Auto) , Sodium Level 141, Potassium Level 4.0, Chloride Level 106, Carbon Dioxide Level 36H, Anion Gap -1L, Blood Urea Nitrogen 18, Creatinine 0.7, Estimat Glomerular Filtration Rate > 60, Glucose Level 96, Calcium Level 8.1L, Phosphorus Level 2.3L, Total Bilirubin 1.2H, Direct Bilirubin 0.8H, Aspartate Amino Transf (AST/SGOT) 33, Alanine Aminotransferase (ALT/SGPT) 11L, Alkaline Phosphatase 46, Total Protein 5.4L, Albumin 1.7L, Globulin 3.7, Albumin/Globulin Ratio 0.5L Height (Feet): 5 Height (Inches): 8.00 Weight (Pounds): 212 General Appearance: no apparent distress EENT: other - Trach to vent Cardiovascular: normal rate Respiratory/Chest: decreased breath sounds Abdomen: distended Tano Longoria MD Feb 24, 2020 16:26
--- NOTE | 2020-02-24 16:31 | NUR ---
NURSE NOTES: Called [facility] ambulance and followed up with will-call transportation for patient, spoke with Katy, [facility] transportation ETA will be 1861. Charge nurse made aware. Will continue to monitor patient.
--- NOTE | 2020-02-24 17:30 | NUR ---
NURSE NOTES: Patient discharged to [facility] per Dr. Crawford. Patient discharged to SNF with urinary aggarwal catheter per orders of Dr. Crawford. Heart monitor removed and returned to desk monitor, ID band removed and placed in shredder. Patient left accompanied by [employer], 1 RN, with belongings in stable condition.
--- NOTE | 2020-02-24 20:17 | General Progress Note ---
Subjective Allergies: Coded Allergies: No Known Allergies (Unverified , 02/11/20) Subjective Above note tolerating feeds For discharge today Objective Last 24 Hour Vital Signs Date Time Temp Pulse Resp B/P (MAP) Pulse Ox O2 Delivery O2 Flow Rate FiO2 02/24/20 17:00 70 149/76 (100) 02/24/20 16:24 74 132/86 (101) 02/24/20 16:00 60 02/24/20 16:00 40 02/24/20 16:00 Mechanical Ventilator 02/24/20 15:59 137/78 (97) 02/24/20 15:31 161/83 02/24/20 15:31 97.0 61 19 161/83 (109) 100 02/24/20 15:05 169/70 (103) 02/24/20 14:12 180/83 (115) 02/24/20 14:12 76 178/88 02/24/20 12:44 63 14 35 02/24/20 12:00 Mechanical Ventilator 02/24/20 12:00 59 02/24/20 12:00 40 02/24/20 11:55 97.9 62 19 154/74 (100) 100 02/24/20 11:45 62 12 35 02/24/20 09:45 62 12 35 02/24/20 09:40 62 12 35 02/24/20 08:53 141/70 02/24/20 08:00 40 02/24/20 08:00 Mechanical Ventilator 02/24/20 08:00 58 02/24/20 07:44 98.4 62 17 141/70 (93) 100 02/24/20 07:10 57 14 35 02/24/20 06:14 Mechanical Ventilator 02/24/20 05:11 70 143/65 02/24/20 04:45 60 14 35 02/24/20 04:00 Mechanical Ventilator 02/24/20 04:00 98.2 65 17 138/55 (82) 99 02/24/20 04:00 60 02/24/20 04:00 40 02/24/20 03:06 65 16 35 02/24/20 00:34 60 15 35 02/24/20 00:00 40 02/24/20 00:00 98.8 63 19 128/52 (77) 99 02/24/20 00:00 Mechanical Ventilator 02/24/20 00:00 69 02/23/20 22:34 67 16 35 02/23/20 22:13 68 143/68 02/23/20 20:32 64 13 35 Intake and Output 02/23/20 02/24/20 19:00 07:00 Intake Total 1035.000 ml 805 ml Output Total 1650 ml Balance -615.000 ml 805 ml Intake Free Water 100 ml 200 ml IV Total 275.000 ml Tube Feeding 660 ml 605 ml Output Urine Total 1650 ml # Bowel Movements 2 3 Laboratory Tests 02/23/20 23:00: Vancomycin Level Trough 21.2H 02/24/20 04:00: White Blood Count 7.2, Red Blood Count 2.93L, Hemoglobin 9.2L, Hematocrit 30.8L, Mean Corpuscular Volume 105H, Mean Corpuscular Hemoglobin 31.4H, Mean Corpuscular Hemoglobin Concent 29.9L, Red Cell Distribution Width 18.0H, Platelet Count 179, Mean Platelet Volume 7.1, Neutrophils (%) (Auto) , Lymphocytes (%) (Auto) , Monocytes (%) (Auto) , Eosinophils (%) (Auto) , Basophils (%) (Auto) , Sodium Level 141, Potassium Level 4.0, Chloride Level 106, Carbon Dioxide Level 36H, Anion Gap -1L, Blood Urea Nitrogen 18, Creatinine 0.7, Estimat Glomerular Filtration Rate > 60, Glucose Level 96, Calcium Level 8.1L, Phosphorus Level 2.3L, Total Bilirubin 1.2H, Direct Bilirubin 0.8H, Aspartate Amino Transf (AST/SGOT) 33, Alanine Aminotransferase (ALT/SGPT) 11L, Alkaline Phosphatase 46, Total Protein 5.4L, Albumin 1.7L, Globulin 3.7, Albumin/Globulin Ratio 0.5L Height (Feet): 5 Height (Inches): 8.00 Weight (Pounds): 212 Objective Debilitated man NCAT supple, (+) Ttach Coarse BS RR abd soft, (+) GT OBS Assessment/Plan Status: progressing Assessment/Plan: Assessment - Resp failure - s/p Trach and PEG - nodular liver - possible cirrhosis - elevated bili Recommendation - follow labs - elevated HOB - TF - check hepatitis serologies --> negative Ajit Chappell MD Feb 24, 2020 20:17
--- NOTE | 2020-02-25 14:52 | Discharge Summary ---
Discharge Summary Discharge Summary _ DATE OF ADMISSION: 02/11/2020 DATE OF DISCHARGE: 02/24/2020 DISCHARGED BY: Dr. Crawford REASON FOR ADMISSION: 84 years old male with past medical history of chronic respiratory failure , tracheostomy status , dysphagia , feeding by G-tube, CVA presented with tracheostomy bleeding. Upon evaluation blood pressure was 208/120 Laboratory work-up revealed leukocytosis WBC 18.4, hematocrit 36.7, platelet count 425. Stable electrolytes and renal parameters. Lactic acid 4.1 Glucose 191. Troponin 0.012, pro BNP 5167. EKG revealed atrial fibrillation with a rapid ventricular response of 124. Urinalysis revealed +2 protein, +1 leukocyte esterase, no pyuria and occasional bacteria. Rapid COVID-19 was negative. Chest x-ray revealed left lower lobe consolidation. Patient admitted with tracheostomy complication, aspiration pneumonia and sepsis CONSULTANTS: glass tinter Dr. Santamaria pulmonary Dr. Otero ID specialist Dr. Ulises Vasquez GI specialist Dr. Taylor layer up Dr. Longoria educational fundraising director/oncologist Dr. Edgar [facility] COURSE: Patient admitted to direct observational unit and started on broad-spectrum antibiotics. Cat Driver closely followed. Ventilator support and tracheostomy care provided. Venous duplex bilateral lower extremity revealed no evidence of acute DVT Echocardiogram demonstrated preserved ejection fraction 55 to 60%. No evidence of wall motion abnormality. Evidence of severe aortic stenosis. Moderate mitral regurgitation. Mild to moderate tricuspid regurgitation. Right ventricular systolic pressure of 63 consistent with severe pulmonary h ypertension. CT of the chest showed patchy consolidation and ground glass opacity in the left lower lobe, concerning for pneumonia. Dependent consolidation in the right lung,, in the left upper lobe likely representing atelectasis. Cirrhotic liver. Hyperdense material within the gallbladder could represent stones/sludge. Initial blood culture revealed MRSA and Staph capitis. Repeated blood culture on 02/13 were negative. Sputum culture revealed Pseudomonas aeruginosa ; repeated sputum culture revea led Stenotrophomonas , E. coli ESBL and Pseudomonas Antibiotic regimen optimized as per ID specialist recommendation. Patient completed treatment for pneumonia. Patient need to continue vancomycin for additional day to complete the course. Leukocytosis resolved, no fevers. Porcelain Enamel Sprayer closely followed. Rate was controlled with Cardizem, dose was down titrated since patient was bradycardic. Anticoagulation was stopped given tracheal bleeding. Patient spontaneously converted to sinus rhythm with first-degree AV block, likely sick sinus syndrome. Blood pressure was managed with Cardizem and lisinopril, blood pressure imp roved. Pulmonary toilet provided. Strict aspiration precaution maintained. G-tube feeding continued with tube feeding formula, goal rate and protein supplement as per registered dietitian recommendation. GI prophylaxis provided. Hepatitis serology was negative. Stool for occult blood was negative. And hemoglobin hematocrit were closely monitored with goal to keep hemoglobin a renetta 7. Patient undergone transfusion of 1 unit of packed red blood cells while in the hospital. Prior to discharge hemoglobin 9.2, hematocrit 30.8. Surgeon followed. No bleeding around tracheostomy tube, but had a bloody aspirate with deep suctioning. Tracheostomy looked stable. No active bleeding. No skin issues. Mild granulation tissue. Deep suctioning performed with no active bleeding identified. Potentially isolated incident, but patient was continued to monitor to ensure there was no active bleeding or source of bleeding that require intervention. No further bleeding noted. Swallow evaluation was done . Speech therapist recommended n.p.o. status and continue G tube feeding. Abdominal ultrasound revealed no evidence of gallstones. Thickening of the gallbladder wall, possibly indicative of acalculous acute cholecystitis, but also could be related to hepatocellular disease Hepatic surface nodularity likely indicating cirrhotic changes. Hepatitis panel was negative. Renal parameters and electrolytes were closely monitor, electrolytes corrected as needed , nephrotoxics were avoided. Patient clinically stabilized and was ready for discharge to group home facility for continuation of care. FINAL DIAGNOSES: Sepsis with MRSA Pseudomonas, E. coli and stenotrophomonas pneumonia/healthcare associated pneumonia ; status post treatment Possible aspiration pneumonia Tracheostomy complications with bleeding Anemia Chronic ventilator dependent respiratory failure with tracheostomy status Nodular liver , probably cirrhosis Atrial fibrillation with rapid ventricular response Accelerated hypertension Dysphagia , feeding by G-tube History of CVA Electrolyte imbalance DISCHARGE MEDICATIONS: See Medication Reconciliation list. DISCHARGE INSTRUCTIONS: Patient was discharged to the group home facility. Follow up with medical doctor at the facility. I have been assigned to dictate discharge summary for this account. I was not involved in the patient's management. Anna Parrish NP Feb 25, 2020 14:52
--- NOTE | 2020-02-26 13:14 | NUR ---
INSURANCE DC SUMMARY/CLINICALS (02/23) FAXED TO [facility] [phone]
--- NOTE | 2020-02-27 17:13 | Cardiology Report ---
APPROVED REPORT EKG Measurement Heart [id number] <Conclusion> Atrial fibrillation with rapid ventricular response Left anterior fascicular block Nonspecific ST and T wave abnormality Abnormal ECG
== END 2020-02-24 17:35 | DRG 720 ==
LOC: EDBD 08:04 → EDBEDREQ 08:15 → EMR 08:15 → 2W 09:18 → EDBEDREQ 10:33
PROC: 5A1955Z Respiratory Ventilation, Greater than 96 Consecutive Hours (ICD-10-PCS; principal; 2020-02-11)
PROC: B548ZZA Ultrasonography of Superior Vena Cava, Guidance (ICD-10-PCS; 2020-02-18)
PROC: 02HV33Z Insertion of Infusion Device into Superior Vena Cava, Percutaneous Approach (ICD-10-PCS; 2020-02-18)
DX: A41.02 Sepsis due to Methicillin resistant Staphylococcus aureus (principal); J95.01 Hemorrhage from tracheostomy stoma; J69.0 Pneumonitis due to inhalation of food and vomit; I48.91 Unspecified atrial fibrillation; K74.60 Unspecified cirrhosis of liver; R65.21 Severe sepsis with septic shock; J15.5 Pneumonia due to Escherichia coli; J15.1 Pneumonia due to Pseudomonas; G40.909 Epilepsy, unspecified, not intractable, without status epilepticus; I10 Essential (primary) hypertension; Z93.1 Gastrostomy status; R13.10 Dysphagia, unspecified; Z86.73 Personal history of transient ischemic attack (TIA), and cerebral infarction without residual deficits; Z99.11 Dependence on respirator [ventilator] status; Z20.828 Contact with and (suspected) exposure to other viral communicable diseases; D50.9 Iron deficiency anemia, unspecified; E87.6 Hypokalemia; Z74.01 Bed confinement status; G93.40 Encephalopathy, unspecified; R00.1 Bradycardia, unspecified
CPT/HCPCS: 36415; 36569; 71045; 71250; 76700; 76937; 80048; 80053; 80202; 81003; 82248; 82270; 82553; 82607; 82728; 82746; 82962; 82977; 83540; 83550; 83605; 83615; 83690; 83735; 83880; 84100; 84443; 84484; 84550; 85007; 85025; 85044; 85060; 85610; 85730; 86140; 86705; 86709; 86803; 86850; 86900; 86901; 86920; 87040; 87070; 87081; 87181; 87205; 87340; 93005; 93306; 93970; 94002; 94003; 94664; 96365; 96366; 96367; 99291; C9399; J7030; U0002

== ENCOUNTER 2020-03-13 19:02 | Inpatient (IN) | payer MEDICAID ==
[~2020-03-13] VITALS: Ht 182.9 cm; Wt 83.9 kg
[~2020-03-13 19:02] MED LIST: ACETAMINOPHEN LIQUID GT; ASCORBIC ACID500 MG ORAL; BISACODYL5 MG GT; BISACODYL5 MG ORAL; KEPPRA LIQ100 MG/1 M GT; KEPPRA LIQ100 MG/1 M ORAL; LOSARTAN POTASS50 MG GT; LOSARTAN POTASS50 MG ORAL; METOPROLOL SUCC50 MG GT; METOPROLOL TART50 M1 ORAL; METOPROLOL TART50 MG GT; MULTIVITAMIN1 EACH PO; MULTIVITAMINS1 EAC2 GT; REGLAN10 MG GT; REGLAN10 MG ORAL; SANTYL 250 UNIT/GM TOPIC; SENOKOT8.6 MG GT; VITAMIN A & D113 GM TP
[2020-03-13] MEDS ORDERED: Piperacillin/Tazobactam 3.375 GM in NS 110 ML IVPB ONE (19:15)
[2020-03-13] MEDS ORDERED: Vancomycin 1 GM in NS 275 ML IVPB ONE (19:15)
[2020-03-13] MEDS ORDERED: dexAMETHasone 10mg/ml Inj IV ONE (19:15)
--- NOTE | 2020-03-13 19:20 | NUR ---
ED Nurse Note: pt CHRISTIANAPaola RUSSELL RA 29 from [facility] for bradycardia and desaturation on mechanical vent. pt is mildly responsive to pain, skin appears to be dry, red and flakey. pt's upper extremities are edematous and red, attempts to start an IV line are met with weeping from puncture sites, pt has faint pulses at femoral and carotid arteries, HR is noted to be in 20's. Emergency IO approved by DIANA for medical intervention, access gained at R knee
--- NOTE | 2020-03-13 19:26 | Emergency Room Report ---
History of Present Illness General Chief Complaint: Dyspnea/Respdistress Source: Patient, EMS Present Illness HPI 85-year-old male with past medical history of acute on chronic respiratory failure, mechanical ventilator dependence/tracheostomy, previous CVA, hemiplegia, dysphagia, G-tube, gastroparesis, pressure ulcers POA, epilepsy, A. fib sent from [facility] for bradycardia. Patient is nonverbal at baseline. History is limited secondary to patient's clinical status. According to EMS the half-way facility states that patient was found to be bradycardic in the low 40s therefore 911 was called for further evaluation. The patient's symptoms were gradual onset, severity was moderate, duration since unknown amount of time. Quality: Weak Past medical history: Chronic respiratory failure, previous CVA with residual hemiplegia, dysphagia, G-tube dependence, gastroparesis, pressure ulcers Past surgical history: Tracheostomy, G-tube Smoking: Denies Alcohol use: Denies Drug use: Denies Review of systems: Limited 2/ clinical status 14 point Review of Systems is otherwise negative except per HPI Physical Exam: GENERAL: Awake_alert_ Spo2 100 % on FiO2 40% EYES: Pupils reactive. Conjunctiva clear. ENT: External nose and ear appear normal. Oropharynx clear. Head atraumatic. NECK: No thyromegaly. No midline tenderness. Trach in place, c/d/i, no discharge or bleeding. LUNGS: Normal respiratory effort. Clear to auscultation. No stridor. No rales. No wheezes. CARDIAC: Bradycardic rate and irregular rhythm. Normal radial pulses bilaterally. No significant pedal edema. ABDOMEN: Soft, nontender, and nondistended. No rebound/guarding. No hepatosplenomegaly. G-tube in place, epigastrium, c/d/i, no discharge or tenderness. MSK: Poor muscle tone, L hand contractures with rigidity in extremities. Extremities without asymmetric deformity or swelling. NEUROLOGIC: Awake. Does not follow commands for motor and sensory exam. No truncal ataxia. GCS 2-4-2, protecting airway, intact gag reflex. Withdraws to pain in extremities, groans and opens eyes to sternal rub. SKIN: Warm and dry. No cyanosis or urticaria present. - COORDINATION OF CARE Case was discussed with: Patient , Patient's Physician Any labs and imaging that were ordered were interpreted as part of the medical decision making: I did a chart review. Patient was previously admitted to [facility] on February 15, [address] Crawford for bleeding from tracheostomy site, aspiration pneumonia, and hypercapnic respiratory failure. Patient was treated for left lower lobe pneumonia and discharged back to half-way facility. Covid swab at that time was negative Medical Decision Making/Plan: Differential diagnosis includes sepsis / severe sepsis /septic shock , meningitis , cellulitis UTI, pneumonia , viral syndrome, arrhythmia, A. fib slow ventricular response, symptomatic bradycardia, heart block, among others. Vitals show bradycardia with heart rate of 40. BP is stable for now. Airway is started with tracheostomy. PEG tube is in place. Incision is clean, dry, intact. Patient's abdomen is benign, no evidence of emergent abdominal conditi on. Initial EKG showed junctional bradycardia and prolonged QRS/QT interval concerning for hyperkalemia. Patient's HR of 40 worsened into heart rate in the 20s with subsequent hypotension. Patient was treated with calcium, magnesium, bicarb at bedside due to concern for hyperkalemia. Atropine and Epi given. Transcutaneous pacing at the ready. CXR shows worsening ventilator associated pneumonia. Tracheostomy is in place Lab evaluation showed WBC of 21.8 and lactate elevation of 8. Likely septic shock 2/2 VAP vs UTI. Pt was treated with broad spectrum abx per previous sensitivities. L fem central CVC was inserted for administration of pressors. Potassium was critically elevated at 6.8 so patient was given calcium, insulin, bicarb, dextrose. Repeat accucheck is pending. Troponin level was also critically elevated at 0.239. Patient received rectal aspirin. There is no STEMI on EKG. Suspect type II demand ischemia 2/2 shock. BNP was elevated at 33,492 but pt cannot be diuresed secondary to shock. LFTs a re increased 2/2 shock liver. Patient will be admitted to the hospital for further care and evaluation. I spoke with Dr. Danielle, and reviewed the patients presentation, workup, results, and treatment. They will admit the patient for further care and evaluation, and assume care of the patient at this time. Allergies: Coded Allergies: No Known Allergies (Unverified , 02/11/20) COVID-19 Screening Contact w/high risk pt: No Experienced COVID-19 symptoms?: No COVID-19 Testing performed FLIGHT PHYSICIAN: No Nursing Documentation-PMH Past Medical History: No Stated History Hx Hypertension: Yes - TRACH VENT Hx Gastrointestinal Problems: Yes - G-tube placement Hx Seizures: Yes Physical Exam Vital Signs Date Time Temp Pulse Resp B/P (MAP) Pulse Ox O2 Delivery O2 Flow Rate FiO2 03/13/20 18:50 98.6 42 14 114/65 (81) 99 Mechanical Ventilator 03/13/20 19:02 40 Sp02 EP Interpretation: reviewed, normal Procedures Critical Care Time Critical Care Time - CRITICAL CARE STATEMENT - Critical care performed 75 minutes) Time is exclusive of separately billable procedures. Time includes: direct patient care, patient reassessment, coordination of patient care, review of patient's medical records, medical consultation, family consultation regarding treatment decisions and documentation of patient care. Organ systems at risk: Cardiac / Circulatory / GI/Pulm . Central Line Progress Central Line Placement by me: Patient consented, sterilely draped, full prep, gown, glove, mask, time out performed. Maximal sterile barrier technique used. Anesthesia: 1% lidocaine locally Location: L femoral Device: Multiple lumen Technique: Seldinger technique. Secured with suture. Results: Venous return from all ports with easy saline flush. No complications. Compl : None Guide wire was retrieved and disposed of. ED Procedural Ultrasound by me: Central line placed by me using concurrent ultrasound guidance. Real time image archived in the medical record confirms vascular anatomy CPR/Code Blue CPR/Code Blue Narrative Transcutaneous pacing ACLS for symptomatic bradycardia and severe hyperkalemia Medical Decision Making Diagnostic Impression: Primary Impression: Hyperkalemia Additional Impressions: NSTEMI (non-ST elevated myocardial infarction) Shock Chronic respiratory failure Electrolyte imbalance Sepsis Renal failure Shock liver Anemia Bradycardia Lactic acidosis EKG Diagnostic Results Troponin ordered: Yes When was troponin ordered?: Mar 13, 2020 ASA given to the pt in ED: Yes PA Scribe Text 12-lead EKG (interpreted by me) Time: 1926 Indication: Rhythm analysis Tracing visualized and Interpreted by me. Rhythm: Junctional bradycardia dysrhythmia Rate: 20 bpm QTc: 280 Morphology: No_significant_ST_elevations_or_depressions, No STEMI Impression: Long QT interval. Bradycardia. 12-lead EKG (interpreted by me) Time: 1925 Indication: Rhythm analysis Tracing visualized and Interpreted by me. Rhythm: Junctional bradycardia dysrhythmia Rate: 20 bpm QTc: 271 Morphology: No_significant_ST_elevations_or_depressions, No STEMI Impression: Long QT interval. Bradycardia. 12-lead EKG (interpreted by me) Time: 2033 Indication: Rhythm analysis Tracing visualized and Interpreted by me. Rhythm: Junctional bradycardia dysrhythmia Rate: 58 bpm QTc: 459 Morphology: No_significant_ST_elevations_or_depressions, No STEMI Impression: Wide QRS. Peaked T waves in lead V3, V4, V5, 2, 3. RBBB Rhythm Strip Diag. Results Rhythm Strip Time: 22:30 EP Interpretation: yes Rate: 55 Rhythm: no PVC's, no ectopy Chest X-Ray Diagnostic Results Chest X-Ray Diagnostic Results : JANELL Scribe Text Chest X-Ray: Views: [ 1 ] view(s) Indication: Shortness of breath Findings: Bilateral patchy airspace disease. Trach. No pneumothorax Impression: Pneumonia The X-ray(s) were independently viewed and interpreted contemporaneously Electronically signed by Jasmin hairston DO Reevaluation Time: 22:31 Last Vital Signs Date Time Temp Pulse Resp B/P (MAP) Pulse Ox O2 Delivery O2 Flow Rate FiO2 03/13/20 19:02 96 20 40 03/13/20 18:50 98.6 114/65 (81) 99 Mechanical Ventilator Status: improved Disposition: ADMITTED INPATIENT Admit Decision Time: 22:31 Condition: Serious Signed Out To: Jasmin Rogers D.O. Mar 13, 2020 19:26
--- NOTE | 2020-03-13 19:30 | NUR ---
ED Nurse Note: ERMD at pt bedside to placed central line into L femoral artery
--- NOTE | 2020-03-13 19:35 | NUR ---
ED Nurse Note: ERMD giving verbal orders for symptomatic bradycardia HR of 21 at pt bedside: atropine 1mg x2 sodium bicarb 50 mEq x1 epi 1 mg x3 calcium carbonate 1g x1 magnesium 2gm x2
--- NOTE | 2020-03-13 19:40 | NUR ---
ED Nurse Note: DIANA gave verbal order to begin dopamine 400 mg at 8mg and levophed 8mg at 8 mg for pt;s BP of 75/20 into L femoral central line Addendum: 03/13/20 at 2054 by QLE levophed 8mg began at rate of 20 mcg/min (37.5 mL/hr) per DIANA verbal instruction with readback at bedside
[2020-03-13 19:45] VITALS: BP 114/65
[2020-03-13] MEDS ORDERED: Calcium Gluconate 1gm/50ml 50 ML IVPB ONE (19:45)
[2020-03-13] MEDS ORDERED: Sodium Bicarbonate 50ml Carp IV ONE ×2 (19:45→21:45)
--- NOTE | 2020-03-13 19:50 | NUR ---
ED Nurse Note: aggarwal catheter placed, urine collected and sent to lab. pt remains at baseline and rizwana at 54
[2020-03-13] MEDS ORDERED: Sodium Bicarbonate 8.4% 50ml Inj ONE (19:56)
--- NOTE | 2020-03-13 20:00 | NUR ---
ED Nurse Note: pt is noted to have bright red blood from rectum, ERMD notified
--- NOTE | 2020-03-13 20:05 | NUR ---
ED Nurse Note: order for epi drip noted, ERMD approves to hold, pt BP stable with levophed and dopamine. will hold medication
[2020-03-13 20:37] LABS: APPEARANCE,URINE CLEAR; BILIRUBIN, URINE NEGATIVE (NEGATIVE); COLOR,URINE AMBER; GLUCOSE, URINE (UA) NEGATIVE (NEGATIVE); KETONES,URINE NEGATIVE (NEGATIVE); LEUKOCYTE ESTERASE ,URINE 1+ (NEGATIVE); NITRITE,URINE NEGATIVE (NEGATIVE); PH,URINE 7 (4.5-8.0); PROTEIN,URINE 2+ (NEGATIVE); UROBILINOGEN,URINE NORMAL MG/DL (0.0-1.0)
[2020-03-13] MEDS ORDERED: EPINEPHrine 1mg/1ml Amp 1 MG in D5W 249 ML IV ONE (20:45)
[2020-03-13] MEDS ORDERED: Sodium Bicarbonate 50ml Carp IV SCH (20:45)
[2020-03-13 20:46] LABS: HEMATOCRIT 30.6 % (42.0-52.0); MEAN CORPUSCULAR VOLUME 96 FL (80-99); PLATELET COUNT 241 K/UL (150-450); RED BLOOD COUNT 3.21 M/UL (4.70-6.10); RED CELL DISTRIBUTION WIDTH 17.1 % (11.6-14.8); WHITE BLOOD COUNT 21.8 K/UL (4.8-10.8)
[2020-03-13 20:47] LABS: BASOPHILS % (AUTO) 0.8 % (0.0-2.0); EOSINOPHILS % (AUTO) 2.2 % (0.0-3.0); LYMPHOCYTES % (AUTO) 7.5 % (20.0-45.0); MONOCYTES % (AUTO) 6.4 % (1.0-10.0)
[2020-03-13 21:00] VITALS: BP 150/57
[2020-03-13] MEDS: DOPamine 400mg/250ml 250 ML IV SCH (21:09)
--- NOTE | 2020-03-13 21:10 | NUR ---
ED Nurse Note: ERMD gave verbal order with readback to titrate down to 10 mcg
[2020-03-13 21:25] LABS: ALANINE AMINOTRANSFERASE 2152 U/L (12-78); ALBUMIN 2.1 G/DL (3.4-5.0); ALBUMIN/GLOBULIN RATIO 0.4 (1.0-2.7); ALKALINE PHOSPHATASE 174 U/L (46-116); ASPARTATE AMINO TRANSFERASE 1769 U/L (15-37); BILIRUBIN,TOTAL 2.2 MG/DL (0.2-1.0); BLOOD UREA NITROGEN 96 mg/dL (7-18); CALCIUM 9.1 MG/DL (8.5-10.1); CARBON DIOXIDE 29 MMOL/L (21-32); CHLORIDE 99 MMOL/L (98-107); CREATINE KINASE 166 U/L (26-308); CREATININE 3.2 MG/DL (0.55-1.30); PHOSPHORUS 6.7 MG/DL (2.5-4.9); SODIUM 139 MMOL/L (136-145)
[2020-03-13 21:28] LABS: POTASSIUM 6.3 MMOL/L (3.5-5.1)
[2020-03-13] MEDS ORDERED: Insulin Human Regular 100units/ml 3ml IV ONE (21:45)
[2020-03-13] MEDS ORDERED: Calcium Chloride 100mg/ml Vial IVP ONE (21:45)
--- NOTE | 2020-03-13 22:00 | NUR ---
called stating admit patient to panel . States he will be out of town tomorrow and he also will inform Shashi Waldron( panel call)
[2020-03-13 22:18] VITALS: BP 138/75
--- NOTE | 2020-03-13 22:30 | NUR ---
ED Nurse Note: pt mentation remains at baseline, mildy responsive to pain, R arm twitching is noted. pt continues to have dopamine, levophed and vancomycin infusing into L femoral central line site. VSS on patient monitor wiht bradycardia of 59 noted. will cont to monitor pt
[2020-03-13] MEDS ORDERED: Albuterol/Ipratropium 3ml neb HHN PRN (22:45)
[2020-03-13] MEDS ORDERED: Morphine Sulfate 2mg/ml Inj(IV/IM USE ONLY) IVP PRN (22:45)
--- NOTE | 2020-03-13 22:56 | NUR ---
HAND-OFF: Report given to LISSA Vicente.
[2020-03-13 23:00] VITALS: BP 186/94
--- NOTE | 2020-03-13 23:00 | NUR ---
ED Nurse Note: Report received from YOLANDA ALCARAZ
[2020-03-13] MEDS ORDERED: Vancomycin 1 GM in D5W 275 ML IV SCH (23:45)
[2020-03-14] VITALS (21 sets, daily range): BP systolic 156–215; BP diastolic 66–112
--- NOTE | 2020-03-14 00:15 | NUR ---
ED Nurse Note: BP: 215/76, HR48 ERMD notified Levodrip stopped Dopa drip decreased to 3mcg/min
--- NOTE | 2020-03-14 00:46 | NUR ---
ED Nurse Note: BP 159/66, HR 55 ERMD notified Maintaining current rate of dopa.
--- NOTE | 2020-03-14 04:00 | NUR ---
ED Nurse Note: Routine blood workup due 399 sent to lab
[2020-03-14 04:25] LABS: HEMATOCRIT 29.7 % (42.0-52.0); MEAN CORPUSCULAR VOLUME 92 FL (80-99); PLATELET COUNT 174 K/UL (150-450); RED BLOOD COUNT 3.21 M/UL (4.70-6.10); RED CELL DISTRIBUTION WIDTH 16.2 % (11.6-14.8); WHITE BLOOD COUNT 15.9 K/UL (4.8-10.8)
[2020-03-14 04:44] LABS: ALBUMIN 2.3 G/DL (3.4-5.0); ALKALINE PHOSPHATASE 160 U/L (46-116); ANION GAP 4 mmol/L (5-15); BILIRUBIN,DIRECT 2.3 MG/DL (0.0-0.3); BILIRUBIN,TOTAL 2.7 MG/DL (0.2-1.0); BLOOD UREA NITROGEN 90 mg/dL (7-18); CALCIUM 9.6 MG/DL (8.5-10.1); CARBON DIOXIDE 34 MMOL/L (21-32); CHLORIDE 102 MMOL/L (98-107); CREATININE 2.8 MG/DL (0.55-1.30); SODIUM 141 MMOL/L (136-145)
--- NOTE | 2020-03-14 04:50 | NUR ---
ED Nurse Note: ABG results relayed to ERMD; FIO2 decreased to 40%
[2020-03-14 05:01] LABS: POTASSIUM 6.1 MMOL/L (3.5-5.1)
[2020-03-14 05:18] LABS: ALANINE AMINOTRANSFERASE 4924 U/L (12-78); ASPARTATE AMINO TRANSFERASE 8582 U/L (15-37)
[2020-03-14] MEDS ORDERED: Piperacillin/Tazobactam 4.5 GM in D5W 110 ML IV SCH (06:00)
--- NOTE | 2020-03-14 07:17 | NUR ---
HAND-OFF: Report given to COURTNEY ALCARAZ .
[2020-03-14] MEDS ORDERED: Pantoprazole Inj IV SCH (09:00)
[2020-03-14] MEDS: Heparin 5000 units/ml inj SUBQ SCH ×2 (09:00→23:07)
--- NOTE | 2020-03-14 09:30 | NUR ---
ED Nurse Note:dopamin drip was decteased to 2mcg/min due to increase in BP
[2020-03-14] MEDS: Docusate 100mg cap ORAL SCH ×2 (10:12→21:00)
--- NOTE | 2020-03-14 11:37 | History and Physical ---
History of Present Illness General Date patient seen: Mar 14, 2020 Time patient seen: 11:00 Reason for Hospitalization: Dyspnea/Respdistress Present Illness HPI 85-year-old male with past medical history of acute on chronic respiratory failure, mechanical ventilator dependence/tracheostomy, previous CVA, hemiplegia, dysphagia, G-tube, gastroparesis, pressure ulcers POA, epilepsy, A. fib sent from [facility] for bradycardia last night. Patient is nonverbal at baseline. History is limited secondary to patient's clinical status. According to EMS the [facility] states that patient was found to be bradycardic in the low 40s therefore 911 was called for further evaluation. The patient's symptoms were gradual onset, severity was moderate, duration since unknown amount of time. In the ER Vitals showed bradycardia with heart rate of 40. BP is stable and Airway is started with tracheostomy. PEG tube is in place. Incision is clean, dry, intact. Patient's abdomen is benign, no evidence of emergent abdominal condition. Initial EKG showed junctional bradycardia and prolonged QRS/QT interval janis rning for hyperkalemia. Patient's HR of 40 worsened into heart rate in the 20s with subsequent hypotension. Patient was treated with calcium, magnesium, bicarb at bedside due to concern for hyperkalemia. Atropine and Epi given. Transcutaneous pacing at th e ready. CXR shows worsening ventilator associated pneumonia. Tracheostomy is in place Lab evaluation showed WBC of 21.8 and lactate elevation of 8. Likely septic shock 2/2 VAP vs UTI. Pt was treated with broad spectrum abx per previous sensitivities. L fem central CVC was inserted for administration of pressors. Potassium was critically elevated at 6.8 so patient was given calcium, insulin, bicarb, dextrose. Repeat accucheck is pending. Troponin level was also critically elevated at 0.239. Patient received rectal aspirin. There is no STEMI on EKG. Suspect type II demand ischemia 2/2 shock. BNP was elevated at 33,492 but pt cannot be diuresed secondary to shock. LFTs are increased 2/2 shock liver. Per review of prior records, the patient had US 02/17/20 with ? mass in the left renal area and cirrhosis. 02/12/20 TTE with DIANA 0.6 cm 2, severe PHTN and EF 60 % Family member ( daughter Mallorie [phone] ) was updated by me today and reports NOT KNOWING about cardiac findings. The patient recently moved to the [facility] and she has been able to see him via video conference from the SNF. Reportedly, he is verbal at baseline. She reports to be in touch with her niece ( RN at [facility] Mallorie [phone] ) The patient is non verbal and not following commands on my exam. PPM pads in place. low dose dopamine in place. Allergies: Coded Allergies: No Known Allergies (Unverified , 02/11/20) COVID-19 Screening Contact w/high risk pt: No Experienced COVID-19 symptoms?: No Medication History Scheduled Ascorbic Acid* (Ascorbic Acid*), 250 MG ORAL DAILY, (Reported) Bisacodyl* (Dulcolax*), 5 MG GT DAILY, (Reported) Bisacodyl* (Dulcolax*), 5 MG ORAL DAILY, (Reported) Levetiracetam (Keppra), 15 ML GT TWICE A DAY, (Reported) Levetiracetam (Keppra), 5 ML ORAL DAILY, (Reported) Losartan Potassium* (Losartan Potassium*), 50 MG GT DAILY, (Reported) Losartan Potassium* (Losartan Potassium*), 50 MG ORAL DAILY, (Reported) Metoclopramide Hcl* (Reglan*), 10 MG GT EVERY 6 HOURS, (Reported) Metoclopramide Hcl* (Reglan*), 10 MG ORAL THREE TIMES A DAY, (Reported) Metoprolol Tartrate* (Metoprolol Tartrate*), 50 MG GT BID, (Reported) Metoprolol Tartrate* (Metoprolol Tartrate*), 50 MG ORAL EVERY 12 HOURS, (Reported) Multivitamins* (Multivitamins*), 1 TAB GT DAILY, (Reported) Sennosides (Senokot), 8.6 MG GT BID, (Reported) [Santyl 250unit/gm], Unknown Dose TOPIC DAILY, (Reported) Miscellaneous Medications Multivitamin (Multivitamin), 1 EACH PO, (Reported) Petrolatum,White/Lanolin (Vitamin A & D Ointment), 113 GM TP, (Reported) Sennosides (Senokot), 8.6 MG PO, (Reported) [Acetaminophen Liquid], 160 MG GT, (Reported) Patient History Healthcare decision maker Resuscitation status Advanced Directive on File Review of Systems All Other Systems: negative except mentioned in HPI Physical Exam General Appearance: moderate distress Lines, tubes and drains: central line HEENT: normocephalic, atraumatic Neck: non-tender, trach Respiratory/Chest: lungs clear Cardiovascular/Chest: normal rate Abdomen: feeding tube Extremities: non-tender Neurologic: unresponsiveness Last 24 Hour Vital Signs Date Time Temp Pulse Resp B/P (MAP) Pulse Ox O2 Delivery O2 Flow Rate FiO2 03/14/20 10:48 63 16 173/102 100 Mechanical Ventilator 40 03/14/20 09:30 181/84 03/14/20 09:30 60 15 181/84 100 Mechanical Ventilator 40 03/14/20 08:10 57 15 176/83 100 Mechanical Ventilator 40 03/14/20 07:27 55 18 40 03/14/20 07:01 174/77 03/14/20 07:00 98.6 56 15 174/77 100 Mechanical Ventilator 40 03/14/20 06:01 171/64 03/14/20 06:00 98.7 56 18 171/74 100 Mechanical Ventilator 40 03/14/20 05:20 50 18 40 03/14/20 05:00 157/67 03/14/20 05:00 98.7 58 18 157/67 100 Mechanical Ventilator 40 03/14/20 04:00 98.7 50 16 167/71 100 Mechanical Ventilator 100 03/14/20 04:00 167/71 03/14/20 03:00 98.7 52 20 178/69 100 Mechanical Ventilator 100 03/14/20 03:00 178/69 03/14/20 02:00 168/78 03/14/20 02:00 98.7 49 18 168/78 100 Mechanical Ventilator 100 03/14/20 01:00 159/66 03/14/20 00:45 98.7 52 19 159/66 100 Mechanical Ventilator 100 03/14/20 00:15 215/76 03/14/20 00:15 215/03/14/20 00:15 98.6 48 11 215/76 100 Mechanical Ventilator 100 03/13/20 23:07 59 24 100 03/13/20 23:00 186/94 03/13/20 23:00 186/94 03/13/20 23:00 98.6 52 19 186/94 100 Mechanical Ventilator 40 03/13/20 22:18 98.6 65 19 138/75 100 Mechanical Ventilator 40 03/13/20 21:10 150/57 03/13/20 21:10 150/57 03/13/20 21:09 76/20 03/13/20 21:09 76/20 03/13/20 21:00 98.6 51 21 150/57 99 Mechanical Ventilator 40 03/13/20 19:45 96 20 Mechanical Ventilator 40 03/13/20 19:45 88/43 03/13/20 19:45 98.6 21 20 114/65 89 Mechanical Ventilator 40 03/13/20 19:40 75/20 03/13/20 19:40 75/20 03/13/20 19:02 96 20 40 03/13/20 18:50 98.6 42 14 114/65 (81) 99 Mechanical Ventilator Intake and Output 03/13/20 03/14/20 19:00 07:00 Output Total 2700 ml Balance -2700 ml Output Urine Total 2700 ml Laboratory Tests Test 03/13/20 19:50 03/13/20 20:20 03/13/20 20:25 03/13/20 21:41 Lactic Acid Level 8.30 mmol/L (0.4-2.0) H 7.70 mmol/L (0.66-2.22) H Troponin I 0.239 ng/mL (0.000-0.056) White Blood Count 21.8 K/UL (4.8-10.8) H Red Blood Count 3.21 M/UL (4.70-6.10) L Hemoglobin 10.0 G/DL (14.2-18.0) L Hematocrit 30.6 % (42.0-52.0) L Mean Corpuscular Volume 96 FL (80-99) Mean Corpuscular Hemoglobin 31.2 PG (27.0-31.0) H Mean Corpuscular Hemoglobin Concent 32.6 G/DL (32.0-36.0) Red Cell Distribution Width 17.1 % (11.6-14.8) H Platelet Count 241 K/UL (150-450) Mean Platelet Volume 9.0 FL (6.5-10.1) Neutrophils (%) (Auto) 83.0 % (45.0-75.0) H Lymphocytes (%) (Auto) 7.5 % (20.0-45.0) L Monocytes (%) (Auto) 6.4 % (1.0-10.0) Eosinophils (%) (Auto) 2.2 % (0.0-3.0) Basophils (%) (Auto) 0.8 % (0.0-2.0) Sodium Level 139 MMOL/L (136-145) Potassium Level 6.3 MMOL/L (3.5-5.1) *H Chloride Level 99 MMOL/L (98-107) Carbon Dioxide Level 29 MMOL/L (21-32) Blood Urea Nitrogen 96 mg/dL (7-18) H Creatinine 3.2 MG/DL (0.55-1.30) H Estimat Glomerular Filtration Rate 18.6 mL/min (>60) Glucose Level 136 MG/DL (74-106) H Calcium Level 9.1 MG/DL (8.5-10.1) Phosphorus Level 6.7 MG/DL (2.5-4.9) H Magnesium Level 4.0 MG/DL (1.8-2.4) H Total Bilirubin 2.2 MG/DL (0.2-1.0) H Direct Bilirubin 2.0 MG/DL (0.0-0.3) H Aspartate Amino Transf (AST/SGOT) 1769 U/L (15-37) H Alanine Aminotransferase (ALT/SGPT) 2152 U/L (12-78) H Alkaline Phosphatase 174 U/L (46-116) H Total Creatine Kinase 166 U/L (26-308) Pro-B-Type Natriuretic Peptide 84062 pg/mL (0-125) H Total Protein 7.0 G/DL (6.4-8.2) Albumin 2.1 G/DL (3.4-5.0) L Globulin 4.9 g/dL Albumin/Globulin Ratio 0.4 (1.0-2.7) L Lipase 83 U/L (73-393) Thyroid Stimulating Hormone (TSH) 1.160 uiU/mL (0.358-3.740) Urine Color Moira Urine Appearance Clear Urine pH 7 (4.5-8.0) Urine Specific [place] 1.005 (1.005-1.035) Urine Protein 2+ (NEGATIVE) H Urine Glucose (UA) Negative (NEGATIVE) Urine Ketones Negative (NEGATIVE) Urine Blood 5+ (NEGATIVE) H Urine Nitrite Negative (NEGATIVE) Urine Bilirubin Negative (NEGATIVE) Urine Ictotest Negative (NEGATIVE) Urine Urobilinogen Normal MG/DL (0.0-1.0) Urine Leukocyte Esterase 1+ (NEGATIVE) H Urine RBC 30-40 /HPF (0 - 0) H Urine WBC 5-10 /HPF (0 - 0) H Urine Squamous Epithelial Cells Few /LPF (NONE/OCC) Urine Bacteria Moderate /HPF (NONE) H Test 03/14/20 04:00 03/14/20 04:44 White Blood Count 15.9 K/UL (4.8-10.8) H Red Blood Count 3.21 M/UL (4.70-6.10) L Hemoglobin 10.0 G/DL (14.2-18.0) L Hematocrit 29.7 % (42.0-52.0) L Mean Corpuscular Volume 92 FL (80-99) Mean Corpuscular Hemoglobin 31.1 PG (27.0-31.0) H Mean Corpuscular Hemoglobin Concent 33.7 G/DL (32.0-36.0) Red Cell Distribution Width 16.2 % (11.6-14.8) H Platelet Count 174 K/UL (150-450) Mean Platelet Volume 10.2 FL (6.5-10.1) H Neutrophils (%) (Auto) % (45.0-75.0) Lymphocytes (%) (Auto) % (20.0-45.0) Monocytes (%) (Auto) % (1.0-10.0) Eosinophils (%) (Auto) % (0.0-3.0) Basophils (%) (Auto) % (0.0-2.0) Differential Total Cells Counted 100 Neutrophils % (Manual) 94 % (45-75) H Lymphocytes % (Manual) 4 % (20-45) L Monocytes % (Manual) 2 % (1-10) Eosinophils % (Manual) 0 % (0-3) Basophils % (Manual) 0 % (0-2) Band Neutrophils 0 % (0-8) Platelet Estimate Decreased L Platelet Morphology Normal Hypochromasia 1+ Anisocytosis 1+ Sodium Level 141 MMOL/L (136-145) Potassium Level 6.1 MMOL/L (3.5-5.1) *H Chloride Level 102 MMOL/L (98-107) Carbon Dioxide Level 34 MMOL/L (21-32) H Anion Gap 4 mmol/L (5-15) L Blood Urea Nitrogen 90 mg/dL (7-18) H Creatinine 2.8 MG/DL (0.55-1.30) H Estimat Glomerular Filtration Rate 21.6 mL/min (>60) Glucose Level 139 MG/DL (74-106) H Calcium Level 9.6 MG/DL (8.5-10.1) Total Bilirubin 2.7 MG/DL (0.2-1.0) H Direct Bilirubin 2.3 MG/DL (0.0-0.3) H Aspartate Amino Transf (AST/SGOT) 8582 U/L (15-37) H Alanine Aminotransferase (ALT/SGPT) 4924 U/L (12-78) H Alkaline Phosphatase 160 U/L (46-116) H Total Protein 7.4 G/DL (6.4-8.2) Albumin 2.3 G/DL (3.4-5.0) L Arterial Blood pH 7.463 (7.350-7.450) Arterial Blood Partial Pressure CO2 47.2 mmHg (35.0-45.0) H Arterial Blood Partial Pressure O2 373.4 mmHg (75.0-100.0) H Arterial Blood HCO3 33.0 mmol/L (22.0-26.0) H Arterial Blood Oxygen Saturation 99.6 % (95-100) Arterial Blood Base Excess 8.2 (-2-2) H Alvaro Test Positive Microbiology Date/Time Source Procedure Growth Status 03/13/20 21:41 Rectum Received 03/13/20 20:25 Straight Cath Urine Culture - Preliminary NO GROWTH Resulted 03/13/20 19:37 Nasopharynx SARS-CoV-2 RdRp Gene Assay - Final Complete Height (Feet): 6 Weight (Pounds): 250 Medications Current Medications Medications (Trade) Dose Ordered Sig/Natalia Route PRN Reason Start Time Stop Time Status Last Admin Dose Admin Acetaminophen (Tylenol) 650 mg Q4H PRN ORAL FEVER 03/13/20 22:45 04/12/20 22:44 Acetaminophen (Tylenol) 650 mg Q4H PRN ORAL Mild Pain (Pain Scale 1-3) 03/13/20 22:45 04/12/20 22:44 Albuterol/ Ipratropium (Albuterol/ Ipratropium) 3 ml Q6H PRN HHN Shortness of Breath 03/13/20 22:45 03/18/20 22:44 Bisacodyl (Dulcolax) 10 mg DAILYPRN PRN RECTAL Constipation 03/13/20 22:45 06/11/20 22:44 Dextrose (Dextrose 50%) 25 ml Q30M PRN IV Hypoglycemia 03/13/20 22:45 06/11/20 22:44 Dextrose (Dextrose 50%) 50 ml Q30M PRN IV Hypoglycemia 03/13/20 22:45 06/11/20 22:44 Docusate Sodium (Colace) 100 mg EVERY 12 HOURS ORAL 03/14/20 09:00 04/13/20 08:59 03/14/20 10:12 Dopamine HCl/ Dextrose 250 ml @ 0 mls/hr Q24H IV 03/13/20 21:15 03/16/20 21:14 03/13/20 21:09 Heparin Sodium (Porcine) (Heparin 5000 units/ml) 5,000 units EVERY 12 HOURS SUBQ 03/14/20 09:00 04/28/20 08:59 Morphine Sulfate (Morphine Sulfate) 2 mg Q3H PRN IVP Moderate Pain (Pain Scale 4-6) 03/13/20 22:45 03/20/20 22:44 Morphine Sulfate (Morphine Sulfate) 4 mg Q3H PRN IVP Severe Pain (Pain Scale 7-10) 03/13/20 22:45 03/20/20 22:44 Norepinephrine Bitartrate 8 mg/ Dextrose 250 ml @ 0 mls/hr Q24H IV 03/13/20 21:15 03/16/20 21:14 03/13/20 21:09 Ondansetron HCl (Zofran) 4 mg Q6H PRN IVP Nausea & Vomiting 03/13/20 22:45 04/12/20 22:44 Pantoprazole (Protonix) 40 mg DAILY IV 03/14/20 09:00 04/13/20 08:59 03/14/20 10:14 Piperacillin Sod/ Tazobactam Sod 4.5 gm/Dextrose 110 ml @ 27.5 mls/hr EVERY 8 HOURS IV 03/14/20 06:00 03/21/20 05:59 03/14/20 06:06 Vancomycin HCl 1 gm/Dextrose 275 ml @ 183.3 mls/ hr Q24H IV 03/13/20 23:45 03/18/20 23:44 UNV Assessment/Plan Status: unchanged Assessment/Plan: 85 y/o M with prior CVA, s/p PRG/TRACH admitted from SNF with severe bradycardia. # Bradycardia - Junctional rhythym on admission, # NSTEMI - Serial troponin. TTE Initial EKG showed junctional bradycardia and prolonged QRS/QT interval concerning for hyperkalemia. Patient's HR of 40 worsened into heart rate in the 20s with subsequent hypotens ion. Patient was treated with calcium, magnesium, bicarb at bedside due to concern for hyperkalemia. Atropine and Epi given. Transcutaneous pacing at the ready. Dopamine gtt titration started. Cardiology consultation requested with Dr. Barry. ICU admission Continue pacer pads #Sepsis consistent with ventilator associated pneumonia. Tracheostomy is in place Broad sp antibiotic started and WBC improved from 21K to 15.9 K today ABG 7.4/47/373/33 Continue supportive care Follow up cultures # Hyperkalemia Treated medically. K down to 6.1 from 6.3 Renal consulation requested with Dr. Laguerre # History of L renal mass by US 02/17/20 # NIURKA on CKD Creatinine 2.8 from 3.2 last night #Elevated LFT's and prior history of cirrhosis # Shock liver due to hypotension Trend LFT's Consider GI consultation if persistent LFT elevation # History of CVA and hemiplegia with PEG and trach Will repeat CT head due to hypotension. Consider MRI brain for possible anoxic brain injury in the setting of hypotension Neurology consultation for follow up and prognosis. Line Central line Diet NPO for now DVT ppx GI ppx FULL CODE Family was called today and they are hopeful that the patient will return to his prior baseline. I updated the daughter about cardiac, renal, lung, liver current status and high complexity and morbidity mortality for the patient. GOC discussion follow up will be needed pending on clinical progress. Lab evaluation showed WBC of 21.8 and lactate elevation of 8. Likely septic shock 2/2 VAP vs UTI. Pt was treated with broad spectrum abx per previous sensitivities. L fem central CVC was inserted for administration of pressors. Potassium was critically elevated at 6.8 so patient was given calcium, insulin, bicarb, dextrose. Repeat accucheck is pending. Troponin level was also critically elevated at 0.239. Patient received rectal aspirin. There is no STEMI on EKG. Suspect type II demand ischemia 2/2 shock. BNP was elevated at 33,492 but pt cannot be diuresed secondary to shock. LFTs are increased 2/2 shock liver. Va Danielle MD Mar 14, 2020 11:37
[2020-03-14] MEDS ORDERED: Vancomycin 1.5gm/300ml Premix 300 ML IVPB SCH (12:30)
--- NOTE | 2020-03-14 12:32 | Consultation ---
Consult Note Consult Note I am asked to evaluate the patient at the request of Dr. Danielle for renal failure and electrolyte imbalances Old chart reviewed, patient known to me from his previous admission. Patient seen in emergency room room #1 Discussed with RN It appears that the the patient had a Johnson catheter put in in emergency room after few trials and when the Johnson catheter was in 3 to 3-1/2 L urine came out Patient has a groin line for intravenous fluid and antibiotics 85-year-old male with past medical history of acute on chronic respiratory failure, mechanical ventilator dependence/tracheostomy, previous CVA, hemiplegia, dysphagia, G-tube, gastroparesis, pressure ulcers POA, epilepsy, A. fib sent from [facility] for bradycardia. Patient is nonverbal at baseline. History is limited secondary to patient's clinical status. According to EMS the alf facility states that patient was found to be bradycardic in the low 40s therefore 911 was called for further evaluation. The patient's symptoms were gradual onset, severity was moderate, duration since unknown amount of time. Quality: Weak Past medical history: Chronic respiratory failure, previous CVA with residual hemiplegia, dysphagia, G-tube dependence, gastroparesis, pressure ulcers Past surgical history: Tracheostomy, G-tube Allergies: No Known Allergies (Unverified , 02/11/20) COVID-19 Screening Contact w/high risk pt: No Experienced COVID-19 symptoms?: No COVID-19 Testing performed PRIMER SUPERVISOR: No Past Medical History: No Stated History Hx Hypertension: Yes - TRACH VENT Hx Gastrointestinal Problems: Yes - G-tube placement Hx Seizures: Yes Vital Signs ER: Date Time Temp Pulse Resp B/P (MAP) Pulse Ox O2 Delivery O2 Flow Rate FiO2 03/13/20 18:50 98.6 42 14 114/65 (81) 99 Mechanical Ventilator 03/13/20 19:02 40 Sp02 EP Interpretation: reviewed, normal PHYSICAL EXAMINATION: VITAL SIGNS: Show blood pressure of 200/88, pulse is 60. The heart rate was as low as 21 on arrival and blood pressure was 75/20. HEAD AND NECK: Shows no JVD. Status post tracheostomy. LUNGS: Coarse rhonchi. CARDIOVASCULAR: Shows regular S1 and S2 with no gallop. ABDOMEN: Status post G-tube. EXTREMITIES: A 1+ pitting edema. LABORATORY AND DIAGNOSTIC DATA: Labs show white count of 21.8, hemoglobin 10, hematocrit of 30, and platelet count is 241. Sodium is 141, potassium elevated at 6.3 and now is 6.1, BUN of 90, creatinine of 2.8, Lactic acid of 8.3. Troponin is 0.39. Total bilirubin of 2.7, direct bilirubin of 2.3. His EKG showed junctional rhythm at a rate of 40. . Assessment/Plan Acute renal failure secondary to urinary outlet obstruction Electrolyte abnormalities, hyperkalemia Chronic respiratory failure trach and vent dependent History of atrial fibrillation PEG Anemia Patient presented with low blood pressure and shock liver Suggestions; Hydrate As needed hydralazine for high or high blood pressure Monitor electrolyte renal parameters Treatment of underlying sepsis Per orders Tano Longoria MD Mar 14, 2020 12:32
[2020-03-14] MEDS: D5 1/2NS 1,000 ML IV SCH ×2 (12:45→23:05)
--- NOTE | 2020-03-14 13:35 | NUR ---
ED Nurse Note:dopamine drip was placed on hold per ER MD order due to increased BP
--- NOTE | 2020-03-14 16:27 | Diagnostic Imaging Report ---
EXAM: US Abdomen Complete CLINICAL HISTORY: ABN LABS TECHNIQUE: Real-time ultrasound of the abdomen with image documentation. COMPARISON: Abdominal ultrasound on 02/17/2020 FINDINGS: Liver: Left liver not visualized. Liver measures 13.0 cm. No focal lesion. Gallbladder: No gallbladder wall thickening or pericholecystic fluid. No definite stones or sludge. Common bile duct: Normal common bile duct measuring 5.2 mm. No stones. No dilation. Pancreas: Pancreas could not be visualized due to presence of bandaging. Kidneys: Right kidney measures 8.3 cm in length. No hydronephrosis or stone. Left kidney measures 10.3 cm in length. No hydronephrosis or stone. Spleen: Spleen measures 8.9 cm. Aorta: Not visualized. Inferior vena cava: Not visualized. Other vasculature: Patent main portal vein with normal direction of flow. Free fluid: No ascites. IMPRESSION: No acute findings in the abdomen.
[2020-03-14] MEDS: Piperacillin/Tazobactam 3.375 GM in D5W 110 ML IV SCH ×2 (16:55→23:24)
--- NOTE | 2020-03-14 17:03 | NUR ---
ED Nurse Note:continue monitor wating for ICU bed
--- NOTE | 2020-03-14 18:38 | NUR ---
ED Nurse Note:dr. Santamaria checked pt. and is aware about elevated BP
--- NOTE | 2020-03-14 18:49 | Cardiac Electrophysiology PN ---
Subjective Subjective [id number] Objective Last 24 Hour Vital Signs Date Time Temp Pulse Resp B/P (MAP) Pulse Ox O2 Delivery O2 Flow Rate FiO2 03/14/20 18:26 98.2 61 15 200/88 100 Mechanical Ventilator 40 03/14/20 17:01 63 16 195/92 100 Mechanical Ventilator 40 03/14/20 15:59 61 17 40 03/14/20 15:00 62 16 186/100 100 Mechanical Ventilator 40 03/14/20 11:48 63 16 40 03/14/20 11:43 193/84 03/14/20 10:48 63 16 173/102 100 Mechanical Ventilator 40 03/14/20 09:30 181/84 03/14/20 09:30 60 15 181/84 100 Mechanical Ventilator 40 03/14/20 08:10 57 15 176/83 100 Mechanical Ventilator 40 03/14/20 07:27 55 18 40 03/14/20 07:01 174/77 03/14/20 07:00 98.6 56 15 174/77 100 Mechanical Ventilator 40 03/14/20 06:01 171/64 03/14/20 06:00 98.7 56 18 171/74 100 Mechanical Ventilator 40 03/14/20 05:20 50 18 40 03/14/20 05:00 157/67 03/14/20 05:00 98.7 58 18 157/67 100 Mechanical Ventilator 40 03/14/20 04:00 98.7 50 16 167/71 100 Mechanical Ventilator 100 03/14/20 04:00 167/71 03/14/20 03:00 98.7 52 20 178/69 100 Mechanical Ventilator 100 03/14/20 03:00 178/69 03/14/20 02:00 168/78 03/14/20 02:00 98.7 49 18 168/78 100 Mechanical Ventilator 100 03/14/20 01:00 159/66 03/14/20 00:45 98.7 52 19 159/66 100 Mechanical Ventilator 100 03/14/20 00:15 215/76 03/14/20 00:15 215/76 03/14/20 00:15 98.6 48 11 215/76 100 Mechanical Ventilator 100 03/13/20 23:07 59 24 100 03/13/20 23:00 186/94 03/13/20 23:00 186/94 03/13/20 23:00 98.6 52 19 186/94 100 Mechanical Ventilator 40 03/13/20 22:18 98.6 65 19 138/75 100 Mechanical Ventilator 40 03/13/20 21:10 150/57 03/13/20 21:10 150/57 03/13/20 21:09 76/20 20 21:09 76/20 03/13/20 21:00 98.6 51 21 150/57 99 Mechanical Ventilator 40 03/13/20 19:45 96 20 Mechanical Ventilator 40 03/13/20 19:45 88/43 03/13/20 19:45 98.6 21 20 114/65 89 Mechanical Ventilator 40 03/13/20 19:40 75/20 03/13/20 19:40 75/20 03/13/20 19:02 96 20 40 03/13/20 18:50 98.6 42 14 114/65 (81) 99 Mechanical Ventilator Intake and Output 03/13/20 03/14/20 19:00 07:00 Output Total 2700 ml Balance -2700 ml Output Urine Total 2700 ml Laboratory Tests Test 03/13/20 19:50 03/13/20 20:20 03/13/20 20:25 03/13/20 21:41 Lactic Acid Level 8.30 mmol/L (0.4-2.0) H 7.70 mmol/L (0.66-2.22) H Troponin I 0.239 ng/mL (0.000-0.056) White Blood Count 21.8 K/UL (4.8-10.8) H Red Blood Count 3.21 M/UL (4.70-6.10) L Hemoglobin 10.0 G/DL (14.2-18.0) L Hematocrit 30.6 % (42.0-52.0) L Mean Corpuscular Volume 96 FL (80-99) Mean Corpuscular Hemoglobin 31.2 PG (27.0-31.0) H Mean Corpuscular Hemoglobin Concent 32.6 G/DL (32.0-36.0) Red Cell Distribution Width 17.1 % (11.6-14.8) H Platelet Count 241 K/UL (150-450) Mean Platelet Volume 9.0 FL (6.5-10.1) Neutrophils (%) (Auto) 83.0 % (45.0-75.0) H Lymphocytes (%) (Auto) 7.5 % (20.0-45.0) L Monocytes (%) (Auto) 6.4 % (1.0-10.0) Eosinophils (%) (Auto) 2.2 % (0.0-3.0) Basophils (%) (Auto) 0.8 % (0.0-2.0) Sodium Level 139 MMOL/L (136-145) Potassium Level 6.3 MMOL/L (3.5-5.1) *H Chloride Level 99 MMOL/L (98-107) Carbon Dioxide Level 29 MMOL/L (21-32) Blood Urea Nitrogen 96 mg/dL (7-18) H Creatinine 3.2 MG/DL (0.55-1.30) H Estimat Glomerular Filtration Rate 18.6 mL/min (>60) Glucose Level 136 MG/DL (74-106) H Calcium Level 9.1 MG/DL (8.5-10.1) Phosphorus Level 6.7 MG/DL (2.5-4.9) H Magnesium Level 4.0 MG/DL (1.8-2.4) H Total Bilirubin 2.2 MG/DL (0.2-1.0) H Direct Bilirubin 2.0 MG/DL (0.0-0.3) H Aspartate Amino Transf (AST/SGOT) 1769 U/L (15-37) H Alanine Aminotransferase (ALT/SGPT) 2152 U/L (12-78) H Alkaline Phosphatase 174 U/L (46-116) H Total Creatine Kinase 166 U/L (26-308) Pro-B-Type Natriuretic Peptide 51116 pg/mL (0-125) H Total Protein 7.0 G/DL (6.4-8.2) Albumin 2.1 G/DL (3.4-5.0) L Globulin 4.9 g/dL Albumin/Globulin Ratio 0.4 (1.0-2.7) L Lipase 83 U/L (73-393) Thyroid Stimulating Hormone (TSH) 1.160 uiU/mL (0.358-3.740) Urine Color Moira Urine Appearance Clear Urine pH 7 (4.5-8.0) Urine Specific [place] 1.005 (1.005-1.035) Urine Protein 2+ (NEGATIVE) H Urine Glucose (UA) Negative (NEGATIVE) Urine Ketones Negative (NEGATIVE) Urine Blood 5+ (NEGATIVE) H Urine Nitrite Negative (NEGATIVE) Urine Bilirubin Negative (NEGATIVE) Urine Ictotest Negative (NEGATIVE) Urine Urobilinogen Normal MG/DL (0.0-1.0) Urine Leukocyte Esterase 1+ (NEGATIVE) H Urine RBC 30-40 /HPF (0 - 0) H Urine WBC 5-10 /HPF (0 - 0) H Urine Squamous Epithelial Cells Few /LPF (NONE/OCC) Urine Bacteria Moderate /HPF (NONE) H Test 03/14/20 04:00 03/14/20 04:44 White Blood Count 15.9 K/UL (4.8-10.8) H Red Blood Count 3.21 M/UL (4.70-6.10) L Hemoglobin 10.0 G/DL (14.2-18.0) L Hematocrit 29.7 % (42.0-52.0) L Mean Corpuscular Volume 92 FL (80-99) Mean Corpuscular Hemoglobin 31.1 PG (27.0-31.0) H Mean Corpuscular Hemoglobin Concent 33.7 G/DL (32.0-36.0) Red Cell Distribution Width 16.2 % (11.6-14.8) H Platelet Count 174 K/UL (150-450) Mean Platelet Volume 10.2 FL (6.5-10.1) H Neutrophils (%) (Auto) % (45.0-75.0) Lymphocytes (%) (Auto) % (20.0-45.0) Monocytes (%) (Auto) % (1.0-10.0) Eosinophils (%) (Auto) % (0.0-3.0) Basophils (%) (Auto) % (0.0-2.0) Differential Total Cells Counted 100 Neutrophils % (Manual) 94 % (45-75) H Lymphocytes % (Manual) 4 % (20-45) L Monocytes % (Manual) 2 % (1-10) Eosinophils % (Manual) 0 % (0-3) Basophils % (Manual) 0 % (0-2) Band Neutrophils 0 % (0-8) Platelet Estimate Decreased L Platelet Morphology Normal Hypochromasia 1+ Anisocytosis 1+ Sodium Level 141 MMOL/L (136-145) Potassium Level 6.1 MMOL/L (3.5-5.1) *H Chloride Level 102 MMOL/L (98-107) Carbon Dioxide Level 34 MMOL/L (21-32) H Anion Gap 4 mmol/L (5-15) L Blood Urea Nitrogen 90 mg/dL (7-18) H Creatinine 2.8 MG/DL (0.55-1.30) H Estimat Glomerular Filtration Rate 21.6 mL/min (>60) Glucose Level 139 MG/DL (74-106) H Calcium Level 9.6 MG/DL (8.5-10.1) Total Bilirubin 2.7 MG/DL (0.2-1.0) H Direct Bilirubin 2.3 MG/DL (0.0-0.3) H Aspartate Amino Transf (AST/SGOT) 8582 U/L (15-37) H Alanine Aminotransferase (ALT/SGPT) 4924 U/L (12-78) H Alkaline Phosphatase 160 U/L (46-116) H Total Protein 7.4 G/DL (6.4-8.2) Albumin 2.3 G/DL (3.4-5.0) L Arterial Blood pH 7.463 (7.350-7.450) Arterial Blood Partial Pressure CO2 47.2 mmHg (35.0-45.0) H Arterial Blood Partial Pressure O2 373.4 mmHg (75.0-100.0) H Arterial Blood HCO3 33.0 mmol/L (22.0-26.0) H Arterial Blood Oxygen Saturation 99.6 % (95-100) Arterial Blood Base Excess 8.2 (-2-2) H Alvaro Test Positive Microbiology Date/Time Source Procedure Growth Status 03/13/20 21:41 Rectum Received 03/13/20 20:25 Straight Cath Urine Culture - Preliminary NO GROWTH Resulted 03/13/20 19:37 Nasopharynx SARS-CoV-2 RdRp Gene Assay - Final Complete Liang Barry MD Mar 14, 2020 18:49
--- NOTE | 2020-03-14 19:03 | NUR ---
HAND-OFF: Report given to Keshia.
--- NOTE | 2020-03-14 19:10 | NUR ---
ED Nurse Note: Report received from LISSA Neff. Patient current HR is 71, BP is noted at 212/94. Vent settings are TV 500, peep 5, 40% fi02, 14 RR. Patient remains on shelter monitor, safety measures in place. He does not appear to be in any acute distress/pain at this time. No current IV drips are being infused.
--- NOTE | 2020-03-14 20:25 | Neurology Progress Note ---
Interim History Interim History Interim History 85-year-old male with past medical history of acute on chronic respiratory failure, mechanical ventilator dependence/tracheostomy, previous CVA, hemiplegia, dysphagia, G-tube, gastroparesis, pressure ulcers POA, epilepsy, A. fib sent from [facility] for bradycardia last night. Patient is nonverbal at baseline. History is limited secondary to patient's clinical status. [facility] EMS [facility] that patient was found to be bradycardic in the low 40s therefore 911 was called for further evaluation. The patient's symptoms were gradual onset, severity was moderate, duration since unknown amount of time. Current Medications Medications (Trade) Dose Ordered Sig/Natalia Route PRN Reason Start Time Stop Time Status Last Admin Dose Admin Acetaminophen (Tylenol) 650 mg Q4H PRN ORAL FEVER 03/13/20 22:45 04/12/20 22:44 Acetaminophen (Tylenol) 650 mg Q4H PRN ORAL Mild Pain (Pain Scale 1-3) 03/13/20 22:45 04/12/20 22:44 Albuterol/ Ipratropium (Albuterol/ Ipratropium) 3 ml Q6H PRN HHN Shortness of Breath 03/13/20 22:45 03/18/20 22:44 Bisacodyl (Dulcolax) 10 mg DAILYPRN PRN RECTAL Constipation 03/13/20 22:45 06/11/20 22:44 Dextrose (Dextrose 50%) 25 ml Q30M PRN IV Hypoglycemia 03/13/20 22:45 06/11/20 22:44 Dextrose (Dextrose 50%) 50 ml Q30M PRN IV Hypoglycemia 03/13/20 22:45 06/11/20 22:44 Dextrose/Sodium Chloride 1,000 ml @ 100 mls/hr Q10H IV 03/14/20 12:45 04/13/20 12:44 Docusate Sodium (Colace) 100 mg EVERY 12 HOURS ORAL 03/14/20 09:00 04/13/20 08:59 03/14/20 10:12 Dopamine HCl/ Dextrose 250 ml @ 0 mls/hr Q24H IV 03/13/20 21:15 03/16/20 21:14 03/13/20 21:09 Heparin Sodium (Porcine) (Heparin 5000 units/ml) 5,000 units EVERY 12 HOURS SUBQ 03/14/20 09:00 04/28/20 08:59 Hydralazine HCl (Apresoline) 10 mg Q4H PRN IV BP over 160 systolic 03/14/20 12:45 06/12/20 12:44 03/14/20 19:27 Hydralazine HCl (Apresoline) 25 mg EVERY 8 HOURS ORAL 03/14/20 22:00 06/12/20 21:59 Morphine Sulfate (Morphine Sulfate) 2 mg Q3H PRN IVP Moderate Pain (Pain Scale 4-6) 03/13/20 22:45 03/20/20 22:44 Morphine Sulfate (Morphine Sulfate) 4 mg Q3H PRN IVP Severe Pain (Pain Scale 7-10) 03/13/20 22:45 03/20/20 22:44 Ondansetron HCl (Zofran) 4 mg Q6H PRN IVP Nausea & Vomiting 03/13/20 22:45 04/12/20 22:44 Pantoprazole (Protonix) 40 mg Q12HR IV 03/14/20 21:00 04/13/20 08:59 03/14/20 21:54 Piperacillin Sod/ Tazobactam Sod 3.375 gm/Dextrose 110 ml @ 27.5 mls/hr EVERY 8 HOURS IV 03/14/20 14:00 03/21/20 05:59 03/14/20 16:55 Vancomycin HCl (Vanco pharmacy to dose) 1 ea DAILY PRN MISC Per rx protocol 03/14/20 13:00 04/13/20 12:59 Objective Physical Exam Last Vital Signs Date Time Temp Pulse Resp B/P (MAP) Pulse Ox O2 Delivery O2 Flow Rate FiO2 03/14/20 19:27 212/94 03/14/20 19:10 98.2 71 16 100 Mechanical Ventilator 40 Laboratory Tests Test 03/13/20 21:41 03/14/20 04:00 03/14/20 04:44 Lactic Acid Level 7.70 mmol/L (0.66-2.22) H White Blood Count 15.9 K/UL (4.8-10.8) H Red Blood Count 3.21 M/UL (4.70-6.10) L Hemoglobin 10.0 G/DL (14.2-18.0) L Hematocrit 29.7 % (42.0-52.0) L Mean Corpuscular Volume 92 FL (80-99) Mean Corpuscular Hemoglobin 31.1 PG (27.0-31.0) H Mean Corpuscular Hemoglobin Concent 33.7 G/DL (32.0-36.0) Red Cell Distribution Width 16.2 % (11.6-14.8) H Platelet Count 174 K/UL (150-450) Mean Platelet Volume 10.2 FL (6.5-10.1) H Neutrophils (%) (Auto) % (45.0-75.0) Lymphocytes (%) (Auto) % (20.0-45.0) Monocytes (%) (Auto) % (1.0-10.0) Eosinophils (%) (Auto) % (0.0-3.0) Basophils (%) (Auto) % (0.0-2.0) Differential Total Cells Counted 100 Neutrophils % (Manual) 94 % (45-75) H Lymphocytes % (Manual) 4 % (20-45) L Monocytes % (Manual) 2 % (1-10) Eosinophils % (Manual) 0 % (0-3) Basophils % (Manual) 0 % (0-2) Band Neutrophils 0 % (0-8) Platelet Estimate Decreased L Platelet Morphology Normal Hypochromasia 1+ Anisocytosis 1+ Sodium Level 141 MMOL/L (136-145) Potassium Level 6.1 MMOL/L (3.5-5.1) *H Chloride Level 102 MMOL/L (98-107) Carbon Dioxide Level 34 MMOL/L (21-32) H Anion Gap 4 mmol/L (5-15) L Blood Urea Nitrogen 90 mg/dL (7-18) H Creatinine 2.8 MG/DL (0.55-1.30) H Estimat Glomerular Filtration Rate 21.6 mL/min (>60) Glucose Level 139 MG/DL (74-106) H Calcium Level 9.6 MG/DL (8.5-10.1) Total Bilirubin 2.7 MG/DL (0.2-1.0) H Direct Bilirubin 2.3 MG/DL (0.0-0.3) H Aspartate Amino Transf (AST/SGOT) 8582 U/L (15-37) H Alanine Aminotransferase (ALT/SGPT) 4924 U/L (12-78) H Alkaline Phosphatase 160 U/L (46-116) H Total Protein 7.4 G/DL (6.4-8.2) Albumin 2.3 G/DL (3.4-5.0) L Arterial Blood pH 7.463 (7.350-7.450) Arterial Blood Partial Pressure CO2 47.2 mmHg (35.0-45.0) H Arterial Blood Partial Pressure O2 373.4 mmHg (75.0-100.0) H Arterial Blood HCO3 33.0 mmol/L (22.0-26.0) H Arterial Blood Oxygen Saturation 99.6 % (95-100) Arterial Blood Base Excess 8.2 (-2-2) H Alvaro Test Positive Neurologic Exam Mental Status: awake Objective somnolent open eyes, agitated right sided parkinsonism, withdraws all 4. 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 parkinsonism on exam ,likely vascular icu monitoring map >65 cards following Fu cultures cont atb eeg FU MRI brain when stable - not emergent Winston Brown MD Mar 14, 2020 20:25
[2020-03-14] MEDS: DOPamine 400mg/250ml 250 ML IV SCH (21:15)
--- NOTE | 2020-03-14 21:30 | NUR ---
ED Nurse Note: Report given to LISSA Guerrero.
--- NOTE | 2020-03-14 21:30 | NUR ---
ED Nurse Note: Patient current BP is 186/100 and HR is 65. No IV drips are being infused due to vital signs at this time.
[2020-03-14] MEDS: Pantoprazole Inj IV SCH (21:54)
--- NOTE | 2020-03-14 22:10 | NUR ---
ED Nurse Note: Patient transferred to ICU at this time as ordered by MD. Patient is on mechanical ventilator with stable vital signs other than elevated BP. See vitals flow sheet. No IV drips at this time. Physicians on patient's case are aware of patient blood pressure per day shift RN Aishwarya. Patient taken to unit via gurney while connected to athletic monitor by RNs and RT. Patient transferred to ICU bed without complication.
[2020-03-14] MEDS: HydrALAZINE 25mg tab ORAL SCH (23:06)
[2020-03-15] VITALS (41 sets, daily range): BP systolic 106–169; BP diastolic 44–97
--- NOTE | 2020-03-15 | NUR ---
NURSE NOTES: comdition un change
--- NOTE | 2020-03-15 04:00 | NUR ---
NURSE NOTES: complete bed bath oral care done
[2020-03-15] MEDS: Piperacillin/Tazobactam 3.375 GM in D5W 110 ML IV SCH ×3 (05:50→20:32)
[2020-03-15] MEDS: HydrALAZINE 25mg tab ORAL SCH ×2 (05:51→14:36)
--- NOTE | 2020-03-15 06:00 | NUR ---
NURSE NOTES: reposition andsuction
[2020-03-15 07:26] LABS: ALANINE AMINOTRANSFERASE 3987 U/L (12-78); ALBUMIN 2.1 G/DL (3.4-5.0); ALBUMIN/GLOBULIN RATIO 0.5 (1.0-2.7); ALKALINE PHOSPHATASE 121 U/L (46-116); AMMONIA 53 umol/L (11-32); ANION GAP 4 mmol/L (5-15); ASPARTATE AMINO TRANSFERASE 1858 U/L (15-37); BILIRUBIN,TOTAL 1.8 MG/DL (0.2-1.0); BLOOD UREA NITROGEN 87 mg/dL (7-18); CALCIUM 8.9 MG/DL (8.5-10.1); CARBON DIOXIDE 36 MMOL/L (21-32); CHLORIDE 106 MMOL/L (98-107); CHOLESTEROL 77 MG/DL (< 200); CREATINE KINASE 152 U/L (26-308); CREATININE 2.2 MG/DL (0.55-1.30); FERRITIN 730 NG/ML (8-388); GAMMA GLUTAMYL TRANSPEPTIDASE 175 U/L (5-85); HDL CHOLESTEROL 30 MG/DL (40-60); PHOSPHORUS 4.5 MG/DL (2.5-4.9); POTASSIUM 3.6 MMOL/L (3.5-5.1); SODIUM 146 MMOL/L (136-145); TRIGLYCERIDES 53 MG/DL (30-150)
[2020-03-15 07:30] LABS: HEMATOCRIT 28.1 % (42.0-52.0); HEMOGLOBIN 9.1 G/DL (14.2-18.0); MEAN CORPUSCULAR VOLUME 94 FL (80-99); PLATELET COUNT 161 K/UL (150-450); RED BLOOD COUNT 2.98 M/UL (4.70-6.10); WHITE BLOOD COUNT 9.4 K/UL (4.8-10.8)
--- NOTE | 2020-03-15 07:30 | NUR ---
NURSE NOTES: Pt received from LISSA Johnson. Pt is obtunded, opens eyes spontaneously, pupils equal and round 3mm w/ sluggish rxn to light; gag reflex intact. Pt unable to follow commands. Pt is SR to educational director with 2+ radial and dorsalis pedis pulses. 1 + pitting edema noted to hands, arms, legs, and feet. Pt is afebrile. cap refill less than 2 sec. Pt has a trache connected to vent with the following settings: AC 14 TV 500 FiO2 35% Peep 5. Bilat upper lung sounds CTA and lower lobes diminished upon auscultation. Pt has a GT currently clamped - NPO (will f/u with nutrition consult and start tube feeding). Abdomen is round, soft, and non-tender with active bowel sounds to all quadrants. F/C noted draining clear, yellow urine. Skin alterations noted. Pt has a Left femoral TLC w/dry and itnact dressing running D5 1/2 NS at 100 cc/hr. Bed in lowest position, alarm on, side rails up x 2 and padded per seizure precaution, call light within reach. Will continue to monitor.
--- NOTE | 2020-03-15 07:34 | NUR ---
03/15 Concerning MRI exam, unable to perform exam due to pt being on a vent. Order is not emergent, per Dr. Brown's notes. Spoke to LISSA Fisher, she will update me on any changes and will try to contact Dr. Anthony Danielle. santosh 7:34
[2020-03-15 07:36] LABS: BILIRUBIN,DIRECT 1.4 MG/DL (0.0-0.3)
--- NOTE | 2020-03-15 08:00 | NUR ---
NURSE NOTES: Pt repositioned. Afebrile. PO care provided. Hemodynamically stable. Seen by Dr Barry - aware that pt remains w/ intermittent, brief episodes of bradycardia - however, asymptomatic. Addendum: 03/15/20 at 1243 by Natalia Chapin RN Late entry: Dr Barry also made aware of troponin trend today (0.263)
--- NOTE | 2020-03-15 08:00 | Consultation ---
DATE OF CONSULTATION: 03/14/2020 CARDIOLOGY CONSULTATION CONSULTING PHYSICIAN: Liang Barry MD REFERRING PHYSICIAN: Va Danielle MD REASON FOR CONSULTATION: Profound bradycardia and junctional rhythm with heart rate of 40. HISTORY OF PRESENT ILLNESS: The patient is an 85-year-old gentleman with ventilator-dependent respiratory failure, status post tracheostomy as well as history of dysphagia, status post PEG placement with prior CVA, who has hemiplegia, nonverbal, pressure ulcers, and epilepsy as well as paroxysmal atrial fibrillation, who [facility]. The heart rate was in 40s and 911 was called. In the emergency room, the patient was in junctional rhythm with heart rate of 40. The patient's heart rate dropped to 20s and he subsequently became hypotensive. The patient was treated with magnesium, calcium, and bicarbonate for hyperkalemia. Atropine and epinephrine were given and he was placed on transcutaneous pacing. The patient's chest x-ray showed ventilator-associated pneumonia and white count of 22,000 and lactic elevation of 8. The patient was started on broad-spectrum IV antibiotic and central line was placed and he was started on Levophed and dopamine. Initial potassium was 6.8 and the patient received bicarb, calcium, insulin, and dextrose. Troponin was also elevated at 0.39 and he received aspirin. The BNP was elevated at 33,000. The patient's liver function tests were also elevated suggestive of shock liver. Review of the patient's records also showed that the patient has history of cirrhosis of the liver, question of mass in the left renal area, and also has critical aortic stenosis with aortic valve area of 0.6 cm-squared on February 12, 2020, pulmonary hypertension with ejection fraction of 60%. REVIEW OF SYSTEMS: Cannot be obtained as the patient is nonverbal. PAST MEDICAL HISTORY: As mentioned above. FAMILY HISTORY: Noncontributory. SOCIAL HISTORY: [facility] lives [facility]. The patient does not smoke or drink alcohol. MEDICATIONS: 02:38 medication at [facility] include metoprolol 50 mg b.i.d. as well as losartan 50 mg daily. PHYSICAL EXAMINATION: VITAL SIGNS: Show blood pressure of 200/88, pulse is 60. The heart rate was as low as 21 on arrival and blood pressure was 75/20. HEAD AND NECK: Shows no JVD. Status post tracheostomy. LUNGS: Coarse rhonchi. CARDIOVASCULAR: Shows regular S1 and S2 with no gallop. ABDOMEN: Status post G-tube. EXTREMITIES: A 1+ pitting edema. LABORATORY AND DIAGNOSTIC DATA: . Labs show white count of 21.8, hemoglobin 10, hematocrit of 30, and platelet count is 241. Sodium is 141, potassium elevated at 6.3 and now is 6.1, BUN of 90, creatinine of 2.8, . Lactic acid of 8.3. Troponin is 0.39. Total bilirubin of 2.7, direct bilirubin of 2.3. His EKG showed junctional rhythm at a rate of 40. ASSESSMENT AND PLAN: 1. Profound bradycardia, heart rate dropping to 20s associated with hypotension, likely due to the patient's hyperkalemia as well as metoprolol. The metoprolol has been discontinued obviously and the patient received atropine and hyperkalemia was treated. Currently, he is not bradycardic even though he is still mildly hyperkalemic with potassium of 6.3. We will keep temporary pacing the patient will be transferred to intensive care unit. 2. Troponin elevation, likely due to demand ischemia in this patient with severe sepsis and initial septic shock. The patient was broad-spectrum IV antibiotic. 3. Initial hypotension and shock. Likely due to sepsis. White count is improving and the patient is now off both Levophed and dopamine. 4. History of hypertension. Within 24 hours, his blood pressure improved from 70 to 200s. The patient is on IV hydralazine p.r.n. We will avoid any kind of AV-grecia blockers. Cannot use NNAMDI inhibitor or angiotensin-receptor blockers in view of hyperkalemia and acute renal failure either. We cannot use clonidine patch either in view of bradycardia. If the blood pressure continues to remain elevated, we may need to start the patient on nitroprusside. 5. Acute renal failure, secondary to urinary outlet obstruction. Start the patient on standing dose of hydralazine 25 mg every 8 hours. 6. Ventilator-dependent respiratory failure, status post tracheostomy. 7. Dysphagia, status post PEG placement. 8. CVA with hemiplegia. 9. Pressure ulcers. 10. Anemia. 11. Shock liver. Thank you very much, Dr. Va Danielle, for allowing me to participate in the care of this patient. Please do not hesitate to contact me if there are any questions regarding my evaluation. Liang Barry M.D. DR: Augustus JOB#: [id number] CC:
[2020-03-15 08:39] LABS: % IRON SATURATION 38 % (15-50); IRON 119 ug/dL (50-175); TOTAL IRON BINDING CAPACITY 316 ug/dL (250-450)
--- NOTE | 2020-03-15 09:00 | NUR ---
NURSE NOTES: nutrition consult order obtained for tube feeding recommendation.
--- NOTE | 2020-03-15 09:04 | NUR ---
RD ASSESSMENT & RECOMMENDATIONS SEE CARE ACTIVITY FOR COMPLETE ASSESSMENT DAILY ESTIMATED NEEDS: Needs based on Critical care, cardiac/ 75kg abw 22-28 kcals/kg 2369-9322 total kcals 1.2-2 g protein/kg 90-150 g total protein 20-25 mL/kg 2619-4688 total fluid mLs NUTRITION DIAGNOSIS: * Swallowing difficulty R/T respiratory status as evidenced by trach/vent dep, PEG dep. CURRENT TF:NPO ENTERAL NUTRITION RECOMMENDATIONS: Glucerna 1.5 @ 55ml/hr x 24 hrs to provide 1320ml, 1980kcal, 109g prot, 1002ml free water * As medically appropriate, initiate Glucerna 1.5 @ 25ml/hr x 6hrs Rec Glucerna 1.5 for carb control (FBG 130's) and restricted free fluids (elev BNP, edematous) * Advance 10ml q 4-6 hrs as tolerated to goal rate * HOB over 30 degrees/ water flush per MD ADDITIONAL RECOMMENDATIONS: * Calibrated bedscale wt * Wound healing: TF rec @ goal provides 100% RDI F/up w/ WC eval * Monitor BGs, need for NISS-> good glycemic control * Lytes wnl, monitor need for repletion . .
--- NOTE | 2020-03-15 09:43 | Diagnostic Imaging Report ---
EXAM: XR Chest, 1 View CLINICAL HISTORY: sob TECHNIQUE: Frontal view of the chest. COMPARISON: 02/11/2020. FINDINGS: Lungs: Patchy airspace disease at the lung bases as well as the right midlung zone worrisome for atypical pneumonia as per Pleural space: Unremarkable. No pneumothorax. Heart: Cardiomegaly per Mediastinum: Unremarkable. Bones/joints: Osteopenia. Tubes, lines and devices: Endotracheal tube is noted in place appeared Upper abdomen: Elevation of the right hemidiaphragm. IMPRESSION: 1. Bilateral patchy airspace disease which has progressed and worsened. 2. Hypoaeration of the right lung has worsened. 3. Tracheostomy tube is noted in place. 4. Osteopenia.
[2020-03-15] MEDS: Pantoprazole Inj IV SCH ×2 (09:45→20:30)
[2020-03-15] MEDS: D5 1/2NS 1,000 ML IV SCH (09:46)
[2020-03-15] MEDS: Heparin 5000 units/ml inj SUBQ SCH ×2 (09:46→20:33)
[2020-03-15] MEDS: Docusate 100mg/10ml Liq ORAL SCH ×2 (09:52→20:30)
--- NOTE | 2020-03-15 09:58 | General Progress Note ---
Subjective Date patient seen: Mar 15, 2020 Time patient seen: 11:00 ROS Limited/Unobtainable: No Allergies: Coded Allergies: No Known Allergies (Unverified , 02/11/20) All Systems: reviewed and negative except above Subjective non verbal Objective Last 24 Hour Vital Signs Date Time Temp Pulse Resp B/P (MAP) Pulse Ox O2 Delivery O2 Flow Rate FiO2 03/15/20 07:18 63 14 35 03/15/20 05:51 160/65 03/15/20 03:51 Mechanical Ventilator 40.0 03/15/20 03:49 40 03/15/20 03:05 69 15 35 03/15/20 00:00 Mechanical Ventilator 40.0 03/15/20 00:00 40 03/15/20 00:00 Mechanical Ventilator 40.0 03/15/20 00:00 66 16 160/66 (97) 100 03/14/20 23:30 67 17 171/75 (107) 100 03/14/20 23:06 154/114 03/14/20 23:00 97 21 156/112 (127) 100 03/14/20 22:53 72 21 35 03/14/20 22:30 Mechanical Ventilator 40.0 03/14/20 22:30 97.8 74 16 156/104 (121) 100 03/14/20 22:10 98.5 66 16 184/91 100 Mechanical Ventilator 40 03/14/20 21:30 98.5 65 17 186/100 100 Mechanical Ventilator 40 03/14/20 21:15 154/114 03/14/20 20:30 98.5 64 16 163/69 100 Mechanical Ventilator 40 03/14/20 19:27 212/94 03/14/20 19:10 98.2 71 16 212/94 100 Mechanical Ventilator 40 03/14/20 19:10 71 16 Mechanical Ventilator 40 03/14/20 19:02 67 16 40 03/14/20 18:40 62 15 193/98 100 Mechanical Ventilator 40 03/14/20 18:26 98.2 61 15 200/88 100 Mechanical Ventilator 40 03/14/20 17:01 63 16 195/92 100 Mechanical Ventilator 40 03/14/20 15:59 61 17 40 03/14/20 15:00 62 16 186/100 100 Mechanical Ventilator 40 03/14/20 11:48 63 16 40 12/6/20 11:43 193/84 03/14/20 10:48 63 16 173/102 100 Mechanical Ventilator 40 Intake and Output 03/14/20 03/15/20 19:00 07:00 Intake Total 710.0 ml Output Total 2700 ml 300 ml Balance -2700 ml 410.0 ml Intake IV Total 710.0 ml Other 0 ml Output Urine Total 2700 ml 300 ml # Bowel Movements 4 Laboratory Tests 03/14/20 11:58: Troponin I 0.449H 03/15/20 05:19: Troponin I 0.263H, White Blood Count 9.4, Red Blood Count 2.98L, Hemoglobin 9.1L , Hematocrit 28.1L, Mean Corpuscular Volume 94, Mean Corpuscular Hemoglobin 30.6, Mean Corpuscular Hemoglobin Concent 32.4, Red Cell Distribution Width 16.0H, Platelet Count 161, Mean Platelet Volume 9.6, Neutrophils (%) (Auto) , Lymphocytes (%) (Auto) , Monocytes (%) (Auto) , Eosinophils (%) (Auto) , Basophils (%) (Auto) , Differential Total Cells Counted 100, Neutrophils % (Manual) 92H, Lymphocytes % (Manual) 5L, Monocytes % (Manual) 3, Eosinophils % (Manual) 0, Basophils % (Manual) 0, Band Neutrophils 0, Platelet Estimate Adequate, Platelet Morphology Normal, Hypochromasia 1+, Anisocytosis 1+, Sodium Level 146H, Potassium Level 3.6, Chloride Level 106, Carbon Dioxide Level 36H, Anion Gap 4L, Blood Urea Nitrogen 87H, Creatinine 2.2H, Estimat Glomerular Filtration Rate 28.6, Glucose Level 130H, Uric Acid 8.9H, Calcium Level 8.9, Phosphorus Level 4.5, Magnesium Level 2.7H, Iron Level 119, Total Iron Binding Capacity 316, Percent Iron Saturation 38, Unsaturated Iron Binding 197, Ferritin 730H, Total Bilirubin 1.8H, Direct Bilirubin 1.4H, Gamma Glutamyl Transpeptidase 175H, Aspartate Amino Transf (AST/SGOT) 1858H, Alanine Aminotransferase (ALT/SGPT) 3987H, Alkaline Phosphatase 121H, Ammonia 53H, Total Creatine Kinase 152, C-Reactive Protein, Quantitative 17.4H, Pro-B-Type Natriuretic Peptide 43704B, Total Protein 6.6, Albumin 2.1L, Globulin 4.5, Albumin/Globulin Ratio 0.5L, Triglycerides Level 53, Cholesterol Level 77, LDL Cholesterol 35, HDL Cholesterol 30L, Cholesterol/HDL Ratio 2.6L, Lipase 44L, Vitamin B12 Level > 2000H, Folate 42.6, Thyroid Stimulating Hormone (TSH) 0.327L, Free Thyroxine 2.31H Height (Feet): 6 Weight (Pounds): 185 General Appearance: WD/WN EENT: other - tracheostomy Neck: non-tender Cardiovascular: normal rate Respiratory/Chest: lungs clear Abdomen: non tender, other - peg Neurologic: aphasia, other - able to open eyes to voice and squeeze hand bilaterally Objective CLINICAL HISTORY: ABN LABS TECHNIQUE: Real-time ultrasound of the abdomen with image documentation. COMPARISON: Abdominal ultrasound on 02/17/2020 FINDINGS: Liver: Left liver not visualized. Liver measures 13.0 cm. No focal lesion. Gallbladder: No gallbladder wall thickening or pericholecystic fluid. No definite stones or sludge. Common bile duct: Normal common bile duct measuring 5.2 mm. No stones. No dilation. Pancreas: Pancreas could not be visualized due to presence of bandaging. Kidneys: Right kidney measures 8.3 cm in length. No hydronephrosis or stone. Left kidney measures 10.3 cm in length. No hydronephrosis or stone. Spleen: Spleen measures 8.9 cm. Aorta: Not visualized. Inferior vena cava: Not visualized. Other vasculature: Patent main portal vein with normal direction of flow. Free fluid: No ascites. IMPRESSION: No acute findings in the abdomen. 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 # Bradycardia - Junctional rhythym on admission, # NSTEMI - Serial troponin with decreasing titter noted. TTE Initial EKG showed junctional bradycardia and prolonged QRS/QT interval concerning for hyperkalemia. Patient's HR of 40 worsened into heart rate in the 20s with subsequent hypotension 12/6. Patient was treated with calcium, magnesium, bicarb at bedside due to concern for hyperkalemia. Atropine and Epi given in the ER. Dopamine gtt titration started. Cardiology consultation requested with Dr. Barry and telemetry shows NSR at this time. Per cardiology he can be transferred out of ICU today.. ICU admission initially. Transfer to Telemetry #Sepsis consistent with ventilator associated pneumonia. Tracheostomy is in place Broad sp antibiotic started and WBC improving and less than 20K now GNR in all blood culture bottles noted today. ID consultation requested with Dr Hines. ABG 7.4/47/373/33 Continue supportive care Follow up culture sensitivities showed GNR in all bottles. ID consultation. # Hyperkalemia Treated medically. K down to 6.1 from 6.3 Renal consulation requested with Dr. Laguerre # History of L renal mass by US 02/17/20 # NIURKA on CKD Creatinine decreasing and possibly due to severe urinary retention which was relieved in the ED after aggarwal insertion. 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 Neurology consultation for follow up and prognosis. I discussed with family today and they reported that the patient is full care trach/peg since original CVA, he is NOT ambulatory and non verbal which is his current state now. Line Central line Diet Tube feeds. DVT ppx GI ppx FULL CODE Family was called today and they are hopeful that the patient will return to his prior baseline. I updated the daughter about cardiac, renal, lung, liver current status and high complexity and morbidity mortality for the patient. GOC discussion follow up will be needed pending on clinical progress. Lab evaluation showed WBC of 21.8 and lactate elevation of 8. Likely septic shock 2/2 VAP vs UTI. Pt was treated with broad spectrum abx per previous sensitivities. L fem central CVC was inserted for administration of pressors. Potassium was critically elevated at 6.8 so patient was given calcium, insulin, bicarb, dextrose. Repeat accucheck is pending. Troponin level was also critically elevated at 0.239. Patient received rectal aspirin. There is no STEMI on EKG. Suspect type II demand ischemia 2/2 shock. BNP was elevated at 33,492 but pt cannot be diuresed secondary to shock. LFTs are increased 2/2 shock liver. Va Danielle MD Mar 15, 2020 09:58
--- NOTE | 2020-03-15 10:00 | NUR ---
NURSE NOTES: Pt repositioned. No distress noted. Seen by Dr Swati GOMEZ to start tube feeding - IVF will be adjusted.
--- NOTE | 2020-03-15 10:11 | Cardiac Electrophysiology PN ---
Assessment/Plan Assessment/Plan 1. Profound bradycardia, heart rate dropping to 20s associated with hypotension, likely due to the patient's hyperkalemia as well as metoprolol. The metoprolol has been discontinued and the patient received atropine and hyperkalemia was treated. Currently, he is not bradycardic 2. Troponin elevation, likely due to demand ischemia in this patient with severe sepsis and initial septic shock. 3. Initial hypotension and shock. Likely due to sepsis. White count is improving and the patient is now off both Levophed and dopamine. 4. Hypertension. Within 24 hours, his blood pressure improved from 70 to 200s. The patient is on IV hydralazine p.r.n. We will avoid any kind of AV-grecia blockers. Cannot use NNAMDI inhibitor or angiotensin-receptor blockers in view of hyperkalemia and acute renal failure either. We cannot use clonidine patch either in view of bradycardia. Continue Hydralazine 25 tid 5. Acute renal failure, secondary to urinary outlet obstruction. Off ACEI, ARB 6. Ventilator-dependent respiratory failure, status post tracheostomy. 7. Dysphagia, status post PEG placement. 8. CVA with hemiplegia. 9. Pressure ulcers. 10. Anemia. 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 On the Vent via trach. BP better on Hydralazine 25 bid Objective Last 24 Hour Vital Signs Date Time Temp Pulse Resp B/P (MAP) Pulse Ox O2 Delivery O2 Flow Rate FiO2 03/15/20 07:18 63 14 35 03/15/20 05:51 160/65 03/15/20 03:51 Mechanical Ventilator 40.0 03/15/20 03:49 40 03/15/20 03:05 69 15 35 03/15/20 00:00 Mechanical Ventilator 40.0 03/15/20 00:00 40 03/15/20 00:00 Mechanical Ventilator 40.0 03/15/20 00:00 66 16 160/66 (97) 100 03/14/20 23:30 67 17 171/75 (107) 100 03/14/20 23:06 154/114 03/14/20 23:00 97 21 156/112 (127) 100 03/14/20 22:53 72 21 35 03/14/20 22:30 Mechanical Ventilator 40.0 03/14/20 22:30 97.8 74 16 156/104 (121) 100 03/14/20 22:10 98.5 66 16 184/91 100 Mechanical Ventilator 40 03/14/20 21:30 98.5 65 17 186/100 100 Mechanical Ventilator 40 03/14/20 21:15 154/114 03/14/20 20:30 98.5 64 16 163/69 100 Mechanical Ventilator 40 03/14/20 19:27 212/94 03/14/20 19:10 98.2 71 16 212/94 100 Mechanical Ventilator 40 03/14/20 19:10 71 16 Mechanical Ventilator 40 03/14/20 19:02 67 16 40 03/14/20 18:40 62 15 193/98 100 Mechanical Ventilator 40 03/14/20 18:26 98.2 61 15 200/88 100 Mechanical Ventilator 40 03/14/20 17:01 63 16 195/92 100 Mechanical Ventilator 40 03/14/20 15:59 61 17 40 03/14/20 15:00 62 16 186/100 100 Mechanical Ventilator 40 03/14/20 11:48 63 16 40 03/14/20 11:43 193/84 03/14/20 10:48 63 16 173/102 100 Mechanical Ventilator 40 Intake and Output 03/14/20 03/15/20 18:59 06:59 Intake Total 710.0 ml Output Total 2700 ml 300 ml Balance -2700 ml 410.0 ml Intake IV Total 710.0 ml Other 0 ml Output Urine Total 2700 ml 300 ml # Bowel Movements 4 Laboratory Tests Test 03/14/20 11:58 03/15/20 05:19 Troponin I 0.449 ng/mL (0.000-0.056) 0.263 ng/mL (0.000-0.056) White Blood Count 9.4 K/UL (4.8-10.8) Red Blood Count 2.98 M/UL (4.70-6.10) L Hemoglobin 9.1 G/DL (14.2-18.0) L Hematocrit 28.1 % (42.0-52.0) L Mean Corpuscular Volume 94 FL (80-99) Mean Corpuscular Hemoglobin 30.6 PG (27.0-31.0) Mean Corpuscular Hemoglobin Concent 32.4 G/DL (32.0-36.0) Red Cell Distribution Width 16.0 % (11.6-14.8) H Platelet Count 161 K/UL (150-450) Mean Platelet Volume 9.6 FL (6.5-10.1) Neutrophils (%) (Auto) % (45.0-75.0) Lymphocytes (%) (Auto) % (20.0-45.0) Monocytes (%) (Auto) % (1.0-10.0) Eosinophils (%) (Auto) % (0.0-3.0) Basophils (%) (Auto) % (0.0-2.0) Differential Total Cells Counted 100 Neutrophils % (Manual) 92 % (45-75) H Lymphocytes % (Manual) 5 % (20-45) L Monocytes % (Manual) 3 % (1-10) Eosinophils % (Manual) 0 % (0-3) Basophils % (Manual) 0 % (0-2) Band Neutrophils 0 % (0-8) Platelet Estimate Adequate Platelet Morphology Normal Hypochromasia 1+ Anisocytosis 1+ Sodium Level 146 MMOL/L (136-145) H Potassium Level 3.6 MMOL/L (3.5-5.1) Chloride Level 106 MMOL/L (98-107) Carbon Dioxide Level 36 MMOL/L (21-32) H Anion Gap 4 mmol/L (5-15) L Blood Urea Nitrogen 87 mg/dL (7-18) H Creatinine 2.2 MG/DL (0.55-1.30) H Estimat Glomerular Filtration Rate 28.6 mL/min (>60) Glucose Level 130 MG/DL (74-106) H Uric Acid 8.9 MG/DL (2.6-7.2) H Calcium Level 8.9 MG/DL (8.5-10.1) Phosphorus Level 4.5 MG/DL (2.5-4.9) Magnesium Level 2.7 MG/DL (1.8-2.4) H Iron Level 119 ug/dL (50-175) Total Iron Binding Capacity 316 ug/dL (250-450) Percent Iron Saturation 38 % (15-50) Unsaturated Iron Binding 197 ug/dL (112-346) Ferritin 730 NG/ML (8-388) H Total Bilirubin 1.8 MG/DL (0.2-1.0) H Direct Bilirubin 1.4 MG/DL (0.0-0.3) H Gamma Glutamyl Transpeptidase 175 U/L (5-85) H Aspartate Amino Transf (AST/SGOT) 1858 U/L (15-37) H Alanine Aminotransferase (ALT/SGPT) 3987 U/L (12-78) H Alkaline Phosphatase 121 U/L (46-116) H Ammonia 53 umol/L (11-32) H Total Creatine Kinase 152 U/L (26-308) C-Reactive Protein, Quantitative 17.4 mg/dL (0.00-0.90) H Pro-B-Type Natriuretic Peptide 07425 pg/mL (0-125) H Total Protein 6.6 G/DL (6.4-8.2) Albumin 2.1 G/DL (3.4-5.0) L Globulin 4.5 g/dL Albumin/Globulin Ratio 0.5 (1.0-2.7) L Triglycerides Level 53 MG/DL (30-150) Cholesterol Level 77 MG/DL (< 200) LDL Cholesterol 35 mg/dL (<100) HDL Cholesterol 30 MG/DL (40-60) L Cholesterol/HDL Ratio 2.6 (3.3-4.4) L Lipase 44 U/L (73-393) L Vitamin B12 Level > 2000 PG/ML (193-986) H Folate 42.6 NG/ML (8.6-58.9) Thyroid Stimulating Hormone (TSH) 0.327 uiU/mL (0.358-3.740) Free Thyroxine 2.31 NG/DL (0.76-1.46) H Microbiology Date/Time Source Procedure Growth Status 03/13/20 21:41 Rectum Received 03/13/20 20:25 Straight Cath Urine Culture - Preliminary Gram Negative Huy Resulted 03/13/20 19:40 Blood Blood Culture - Preliminary Gram Negative Huy Resulted 03/13/20 19:37 Nasopharynx SARS-CoV-2 RdRp Gene Assay - Final Complete 03/13/20 19:30 Blood Blood Culture - Preliminary Gram Negative Huy Resulted Objective HEAD AND NECK: No JVD. Status post tracheostomy. LUNGS: Coarse rhonchi. CARDIOVASCULAR: Regular S1 and S2 with no gallop. ABDOMEN: Status post G-tube. EXTREMITIES: 1+ pitting edema. Liang Barry MD Mar 15, 2020 10:11
--- NOTE | 2020-03-15 10:13 | Cardiac Electrophysiology PN ---
Assessment/Plan Assessment/Plan 1. Profound bradycardia, heart rate dropping to 20s associated with hypotension, likely due to the patient's hyperkalemia as well as metoprolol. The metoprolol has been discontinued and the patient received atropine and hyperkalemia was treated. Currently, he is not bradycardic 2. Troponin elevation 0.2, 0.4, 0.2, likely due to demand ischemia in this patient with severe sepsis and initial septic shock. EF 55% 3. Initial hypotension and shock. Likely due to sepsis. White count is improving and the patient is now off both Levophed and dopamine. 4. Hypertension. Within 24 hours, his blood pressure improved from 70 to 200s. The patient is on IV hydralazine p.r.n. We will avoid any kind of AV-grecia blockers. Cannot use NNAMDI inhibitor or angiotensin-receptor blockers in view of hyperkalemia and acute renal failure either. We cannot use clonidine patch either in view of bradycardia. Continue Hydralazine 25 tid 5. Acute renal failure, secondary to urinary outlet obstruction. Off ACEI, ARB 6. Ventilator-dependent respiratory failure, status post tracheostomy. 7. Dysphagia, status post PEG placement. 8. CVA with hemiplegia. 9. Pressure ulcers. 10. Anemia. 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 On the Vent via trach. BP better on Hydralazine 25 bid. Troponins flat and low Objective Last 24 Hour Vital Signs Date Time Temp Pulse Resp B/P (MAP) Pulse Ox O2 Delivery O2 Flow Rate FiO2 03/15/20 07:18 63 14 35 03/15/20 05:51 160/65 03/15/20 03:51 Mechanical Ventilator 40.0 03/15/20 03:49 40 03/15/20 03:05 69 15 35 03/15/20 00:00 Mechanical Ventilator 40.0 03/15/20 00:00 40 03/15/20 00:00 Mechanical Ventilator 40.0 03/15/20 00:00 66 16 160/66 (97) 100 03/14/20 23:30 67 17 171/75 (107) 100 03/14/20 23:06 154/114 03/14/20 23:00 97 21 156/112 (127) 100 03/14/20 22:53 72 21 35 03/14/20 22:30 Mechanical Ventilator 40.0 03/14/20 22:30 97.8 74 16 156/104 (121) 100 03/14/20 22:10 98.5 66 16 184/91 100 Mechanical Ventilator 40 03/14/20 21:30 98.5 65 17 186/100 100 Mechanical Ventilator 40 03/14/20 21:15 154/114 03/14/20 20:30 98.5 64 16 163/69 100 Mechanical Ventilator 40 03/14/20 19:27 212/94 03/14/20 19:10 98.2 71 16 212/94 100 Mechanical Ventilator 40 03/14/20 19:10 71 16 Mechanical Ventilator 40 03/14/20 19:02 67 16 40 03/14/20 18:40 62 15 193/98 100 Mechanical Ventilator 40 03/14/20 18:26 98.2 61 15 200/88 100 Mechanical Ventilator 40 03/14/20 17:01 63 16 195/92 100 Mechanical Ventilator 40 03/14/20 15:59 61 17 40 03/14/20 15:00 62 16 186/100 100 Mechanical Ventilator 40 03/14/20 11:48 63 16 40 03/14/20 11:43 193/84 03/14/20 10:48 63 16 173/102 100 Mechanical Ventilator 40 Intake and Output 03/14/20 03/15/20 19:00 07:00 Intake Total 710.0 ml Output Total 2700 ml 300 ml Balance -2700 ml 410.0 ml Intake IV Total 710.0 ml Other 0 ml Output Urine Total 2700 ml 300 ml # Bowel Movements 4 Laboratory Tests Test 03/14/20 11:58 03/15/20 05:19 Troponin I 0.449 ng/mL (0.000-0.056) 0.263 ng/mL (0.000-0.056) White Blood Count 9.4 K/UL (4.8-10.8) Red Blood Count 2.98 M/UL (4.70-6.10) L Hemoglobin 9.1 G/DL (14.2-18.0) L Hematocrit 28.1 % (42.0-52.0) L Mean Corpuscular Volume 94 FL (80-99) Mean Corpuscular Hemoglobin 30.6 PG (27.0-31.0) Mean Corpuscular Hemoglobin Concent 32.4 G/DL (32.0-36.0) Red Cell Distribution Width 16.0 % (11.6-14.8) H Platelet Count 161 K/UL (150-450) Mean Platelet Volume 9.6 FL (6.5-10.1) Neutrophils (%) (Auto) % (45.0-75.0) Lymphocytes (%) (Auto) % (20.0-45.0) Monocytes (%) (Auto) % (1.0-10.0) Eosinophils (%) (Auto) % (0.0-3.0) Basophils (%) (Auto) % (0.0-2.0) Differential Total Cells Counted 100 Neutrophils % (Manual) 92 % (45-75) H Lymphocytes % (Manual) 5 % (20-45) L Monocytes % (Manual) 3 % (1-10) Eosinophils % (Manual) 0 % (0-3) Basophils % (Manual) 0 % (0-2) Band Neutrophils 0 % (0-8) Platelet Estimate Adequate Platelet Morphology Normal Hypochromasia 1+ Anisocytosis 1+ Sodium Level 146 MMOL/L (136-145) H Potassium Level 3.6 MMOL/L (3.5-5.1) Chloride Level 106 MMOL/L (98-107) Carbon Dioxide Level 36 MMOL/L (21-32) H Anion Gap 4 mmol/L (5-15) L Blood Urea Nitrogen 87 mg/dL (7-18) H Creatinine 2.2 MG/DL (0.55-1.30) H Estimat Glomerular Filtration Rate 28.6 mL/min (>60) Glucose Level 130 MG/DL (74-106) H Uric Acid 8.9 MG/DL (2.6-7.2) H Calcium Level 8.9 MG/DL (8.5-10.1) Phosphorus Level 4.5 MG/DL (2.5-4.9) Magnesium Level 2.7 MG/DL (1.8-2.4) H Iron Level 119 ug/dL (50-175) Total Iron Binding Capacity 316 ug/dL (250-450) Percent Iron Saturation 38 % (15-50) Unsaturated Iron Binding 197 ug/dL (112-346) Ferritin 730 NG/ML (8-388) H Total Bilirubin 1.8 MG/DL (0.2-1.0) H Direct Bilirubin 1.4 MG/DL (0.0-0.3) H Gamma Glutamyl Transpeptidase 175 U/L (5-85) H Aspartate Amino Transf (AST/SGOT) 1858 U/L (15-37) H Alanine Aminotransferase (ALT/SGPT) 3987 U/L (12-78) H Alkaline Phosphatase 121 U/L (46-116) H Ammonia 53 umol/L (11-32) H Total Creatine Kinase 152 U/L (26-308) C-Reactive Protein, Quantitative 17.4 mg/dL (0.00-0.90) H Pro-B-Type Natriuretic Peptide 77710 pg/mL (0-125) H Total Protein 6.6 G/DL (6.4-8.2) Albumin 2.1 G/DL (3.4-5.0) L Globulin 4.5 g/dL Albumin/Globulin Ratio 0.5 (1.0-2.7) L Triglycerides Level 53 MG/DL (30-150) Cholesterol Level 77 MG/DL (< 200) LDL Cholesterol 35 mg/dL (<100) HDL Cholesterol 30 MG/DL (40-60) L Cholesterol/HDL Ratio 2.6 (3.3-4.4) L Lipase 44 U/L (73-393) L Vitamin B12 Level > 2000 PG/ML (193-986) H Folate 42.6 NG/ML (8.6-58.9) Thyroid Stimulating Hormone (TSH) 0.327 uiU/mL (0.358-3.740) Free Thyroxine 2.31 NG/DL (0.76-1.46) H Microbiology Date/Time Source Procedure Growth Status 03/13/20 21:41 Rectum Received 03/13/20 20:25 Straight Cath Urine Culture - Preliminary Gram Negative Huy Resulted 03/13/20 19:40 Blood Blood Culture - Preliminary Gram Negative Huy Resulted 03/13/20 19:37 Nasopharynx SARS-CoV-2 RdRp Gene Assay - Final Complete 03/13/20 19:30 Blood Blood Culture - Preliminary Gram Negative Huy Resulted Objective HEAD AND NECK: No JVD. Status post tracheostomy. LUNGS: Coarse rhonchi. CARDIOVASCULAR: Regular S1 and S2 with no gallop. ABDOMEN: Status post G-tube. EXTREMITIES: 1+ pitting edema. Liang Barry MD Mar 15, 2020 10:13
--- NOTE | 2020-03-15 10:30 | Nephrology Progress Note ---
Assessment/Plan Problem List: (1) NIURKA (acute kidney injury) (2) Renal failure (ARF), acute on chronic (3) HTN (hypertension) (4) Sepsis (5) Elevated LFTs Assessment Acute renal failure secondary to urinary outlet obstruction Electrolyte abnormalities, hyperkalemia Chronic respiratory failure trach and vent dependent History of atrial fibrillation PEG Anemia Patient presented with low blood pressure and shock liver Plan March 15: Hydrate and change IV to D5W. Add Norvasc for high blood pressure. Continue to monitor renal parameters and electrolytes. Can start GT feeding. Discussed with RN. March 14: Hydrate As needed hydralazine for high or high blood pressure Monitor electrolyte renal parameters Treatment of underlying sepsis Per orders Subjective ROS Limited/Unobtainable: Yes Objective Objective Last 24 Hour Vital Signs Date Time Temp Pulse Resp B/P (MAP) Pulse Ox O2 Delivery O2 Flow Rate FiO2 03/15/20 07:18 63 14 35 03/15/20 05:51 160/65 03/15/20 03:51 Mechanical Ventilator 40.0 03/15/20 03:49 40 03/15/20 03:05 69 15 35 03/15/20 00:00 Mechanical Ventilator 40.0 03/15/20 00:00 40 03/15/20 00:00 Mechanical Ventilator 40.0 03/15/20 00:00 66 16 160/66 (97) 100 03/14/20 23:30 67 17 171/75 (107) 100 03/14/20 23:06 154/114 03/14/20 23:00 97 21 156/112 (127) 100 03/14/20 22:53 72 21 35 03/14/20 22:30 Mechanical Ventilator 40.0 03/14/20 22:30 97.8 74 16 156/104 (121) 100 03/14/20 22:10 98.5 66 16 184/91 100 Mechanical Ventilator 40 03/14/20 21:30 98.5 65 17 186/100 100 Mechanical Ventilator 40 03/14/20 21:15 154/114 03/14/20 20:30 98.5 64 16 163/69 100 Mechanical Ventilator 40 03/14/20 19:27 212/94 03/14/20 19:10 98.2 71 16 212/94 100 Mechanical Ventilator 40 03/14/20 19:10 71 16 Mechanical Ventilator 40 03/14/20 19:02 67 16 40 03/14/20 18:40 62 15 193/98 100 Mechanical Ventilator 40 03/14/20 18:26 98.2 61 15 200/88 100 Mechanical Ventilator 40 03/14/20 17:01 63 16 195/92 100 Mechanical Ventilator 40 03/14/20 15:59 61 17 40 03/14/20 15:00 62 16 186/100 100 Mechanical Ventilator 40 03/14/20 11:48 63 16 40 03/14/20 11:43 193/84 03/14/20 10:48 63 16 173/102 100 Mechanical Ventilator 40 Intake and Output 03/14/20 03/15/20 19:00 07:00 Intake Total 710.0 ml Output Total 2700 ml 300 ml Balance -2700 ml 410.0 ml Intake IV Total 710.0 ml Other 0 ml Output Urine Total 2700 ml 300 ml # Bowel Movements 4 Laboratory Tests 03/14/20 11:58: Troponin I 0.449H 03/15/20 05:19: Troponin I 0.263H, White Blood Count 9.4, Red Blood Count 2.98L, Hemoglobin 9.1L , Hematocrit 28.1L, Mean Corpuscular Volume 94, Mean Corpuscular Hemoglobin 30.6, Mean Corpuscular Hemoglobin Concent 32.4, Red Cell Distribution Width 16.0H, Platelet Count 161, Mean Platelet Volume 9.6, Neutrophils (%) (Auto) , Lymphocytes (%) (Auto) , Monocytes (%) (Auto) , Eosinophils (%) (Auto) , Basophils (%) (Auto) , Differential Total Cells Counted 100, Neutrophils % (Manual) 92H, Lymphocytes % (Manual) 5L, Monocytes % (Manual) 3, Eosinophils % (Manual) 0, Basophils % (Manual) 0, Band Neutrophils 0, Platelet Estimate Adequate, Platelet Morphology Normal, Hypochromasia 1+, Anisocytosis 1+, Sodium Level 146H, Potassium Level 3.6, Chloride Level 106, Carbon Dioxide Level 36H, Anion Gap 4L, Blood Urea Nitrogen 87H, Creatinine 2.2H, Estimat Glomerular Filtration Rate 28.6, Glucose Level 130H, Uric Acid 8.9H, Calcium Level 8.9, Phosphorus Level 4.5, Magnesium Level 2.7H, Iron Level 119, Total Iron Binding Capacity 316, Percent Iron Saturation 38, Unsaturated Iron Binding 197, Ferritin 730H, Total Bilirubin 1.8H, Direct Bilirubin 1.4H, Gamma Glutamyl Transpeptidase 175H, Aspartate Amino Transf (AST/SGOT) 1858H, Alanine Aminotransferase (ALT/SGPT) 3987H, Alkaline Phosphatase 121H, Ammonia 53H, Total Creatine Kinase 152, C-Reactive Protein, Quantitative 17.4H, Pro-B-Type Natriuretic Peptide 85900F, Total Protein 6.6, Albumin 2.1L, Globulin 4.5, Albumin/Globulin Ratio 0.5L, Triglycerides Level 53, Cholesterol Level 77, LDL Cholesterol 35, HDL Cholesterol 30L, Cholesterol/HDL Ratio 2.6L, Lipase 44L, Vitamin B12 Level > 2000H, Folate 42.6, Thyroid Stimulating Hormone (TSH) 0.327L, Free Thyroxine 2.31H Height (Feet): 6 Weight (Pounds): 185 General Appearance: no apparent distress EENT: other - Trach to vent Cardiovascular: normal rate Respiratory/Chest: decreased breath sounds Abdomen: distended Tano Longoria MD Mar 15, 2020 10:30
--- NOTE | 2020-03-15 11:00 | NUR ---
NURSE NOTES: Sputum sample collected - will send down to lab.
--- NOTE | 2020-03-15 11:55 | NUR ---
Social Work This SW met with patient in the ICU, currently on a vent. Patient is from [facility]. This SW spoke with daughter, Mallorie ([phone]) who explains she is the primary decision maker, along with granddaughter, Mallorie Avery ([phone]) who is a RN @ [employer]. Emotional support provided to daughter, who explains granddaughter, Mallorie has been in contact with updates from the ICU Nursing, as needed. Daughter stating she prefers for patient to be closer to her home, while this SW educated family regarding patient will require SNF that accepts his insurance. Daughter then stating she is in agreement with transfer back to [facility] if cannot locate another SNF closer to her home.
--- NOTE | 2020-03-15 12:00 | NUR ---
NURSE NOTES: Pt repositioned. Axillary temp 99.3 F. Oral care provided. No distress noted.
--- NOTE | 2020-03-15 12:41 | NUR ---
NURSE NOTES: Pt now on EULALIA mattress.
--- NOTE | 2020-03-15 12:46 | NUR ---
NURSE NOTES: Pt seen by Dr Hines.
--- NOTE | 2020-03-15 13:00 | NUR ---
NURSE NOTES: Pt seen by Dr Danielle. OK to transfer to [facility]. OK to perform MRI when pt is more stable.
--- NOTE | 2020-03-15 13:11 | Consultation ---
History of Present Illness General Date patient seen: Mar 15, 2020 Time patient seen: 13:07 Chief Complaint: Dyspnea/Respdistress Referring physician: Dr. Danielle Reason for Consultation: GNR bacteremia Present Illness HPI 85yo M who p/w bradycardia, found to have obstructive uropathy, drained 3.5 L UOP in ED, now with GNR bacteremia for which ID is consulted. Pt is nonverbal, trach/PEG from SNF. History obtained from chart review and d/w RN. Allergies: Coded Allergies: No Known Allergies (Unverified , 02/11/20) Medication History Scheduled Ascorbic Acid* (Ascorbic Acid*), 250 MG ORAL DAILY, (Reported) Bisacodyl* (Dulcolax*), 5 MG GT DAILY, (Reported) Bisacodyl* (Dulcolax*), 5 MG ORAL DAILY, (Reported) Levetiracetam (Keppra), 15 ML GT TWICE A DAY, (Reported) Levetiracetam (Keppra), 5 ML ORAL DAILY, (Reported) Losartan Potassium* (Losartan Potassium*), 50 MG GT DAILY, (Reported) Losartan Potassium* (Losartan Potassium*), 50 MG ORAL DAILY, (Reported) Metoclopramide Hcl* (Reglan*), 10 MG GT EVERY 6 HOURS, (Reported) Metoclopramide Hcl* (Reglan*), 10 MG ORAL THREE TIMES A DAY, (Reported) Metoprolol Tartrate* (Metoprolol Tartrate*), 50 MG GT BID, (Reported) Metoprolol Tartrate* (Metoprolol Tartrate*), 50 MG ORAL EVERY 12 HOURS, (Reported) Multivitamins* (Multivitamins*), 1 TAB GT DAILY, (Reported) Sennosides (Senokot), 8.6 MG GT BID, (Reported) [Santyl 250unit/gm], Unknown Dose TOPIC DAILY, (Reported) Miscellaneous Medications Multivitamin (Multivitamin), 1 EACH PO, (Reported) Sennosides (Senokot), 8.6 MG PO, (Reported) [Acetaminophen Liquid], 160 MG GT, (Reported) Discontinued Medications Petrolatum,White/Lanolin (Vitamin A & D Ointment), 113 GM TP, (Reported) Discontinued Reason: Pt had allergic rxn Patient History Limited by: medical condition Healthcare decision maker Resuscitation status Advanced Directive on File Review of Systems ROS Narrative Unable to assess 2/2 pt condition Physical Exam Physical Exam Narrative Gen: NAD on vent HEENT: NCAT, trach CV: RRR Pulm: CTAB Abd: Obese, soft, NTND, +PEG Ext: No c/c/e Skin: Very dry Neuro: Not awake nor interactive Last 24 Hour Vital Signs Date Time Temp Pulse Resp B/P (MAP) Pulse Ox O2 Delivery O2 Flow Rate FiO2 03/15/20 12:00 57 03/15/20 12:00 99.3 55 14 137/55 (82) 100 03/15/20 11:20 56 14 35 03/15/20 11:02 61 152/66 03/15/20 11:00 63 17 152/66 (94) 100 03/15/20 10:00 60 14 151/81 (104) 100 03/15/20 09:00 60 14 143/60 (87) 100 03/15/20 08:00 65 03/15/20 08:00 98.3 61 14 141/62 (88) 100 03/15/20 07:18 63 14 35 03/15/20 07:00 63 14 136/59 (84) 100 03/15/20 05:51 160/65 03/15/20 03:51 Mechanical Ventilator 40.0 03/15/20 03:49 40 03/15/20 03:05 69 15 35 03/15/20 00:00 Mechanical Ventilator 40.0 03/15/20 00:00 40 03/15/20 00:00 Mechanical Ventilator 40.0 03/15/20 00:00 66 16 160/66 (97) 100 03/14/20 23:30 67 17 171/75 (107) 100 03/14/20 23:06 154/114 03/14/20 23:00 97 21 156/112 (127) 100 03/14/20 22:53 72 21 35 03/14/20 22:30 Mechanical Ventilator 40.0 03/14/20 22:30 97.8 74 16 156/104 (121) 100 03/14/20 22:10 98.5 66 16 184/91 100 Mechanical Ventilator 40 03/14/20 21:30 98.5 65 17 186/100 100 Mechanical Ventilator 40 03/14/20 21:15 154/114 03/14/20 20:30 98.5 64 16 163/69 100 Mechanical Ventilator 40 03/14/20 19:27 212/94 03/14/20 19:10 98.2 71 16 212/94 100 Mechanical Ventilator 40 03/14/20 19:10 71 16 Mechanical Ventilator 40 03/14/20 19:02 67 16 40 03/14/20 18:40 62 15 193/98 100 Mechanical Ventilator 40 03/14/20 18:26 98.2 61 15 200/88 100 Mechanical Ventilator 40 03/14/20 17:01 63 16 195/92 100 Mechanical Ventilator 40 03/14/20 15:59 61 17 40 03/14/20 15:00 62 16 186/100 100 Mechanical Ventilator 40 Intake and Output 03/14/20 03/15/20 19:00 07:00 Intake Total 737.5 ml Output Total 2700 ml 400 ml Balance -2700 ml 337.5 ml IV Total 737.5 ml Other 0 ml Output Urine Total 2700 ml 400 ml # Bowel Movements 4 Laboratory Tests Test 03/15/20 05:19 White Blood Count 9.4 K/UL (4.8-10.8) Red Blood Count 2.98 M/UL (4.70-6.10) L Hemoglobin 9.1 G/DL (14.2-18.0) L Hematocrit 28.1 % (42.0-52.0) L Mean Corpuscular Volume 94 FL (80-99) Mean Corpuscular Hemoglobin 30.6 PG (27.0-31.0) Mean Corpuscular Hemoglobin Concent 32.4 G/DL (32.0-36.0) Red Cell Distribution Width 16.0 % (11.6-14.8) H Platelet Count 161 K/UL (150-450) Mean Platelet Volume 9.6 FL (6.5-10.1) Neutrophils (%) (Auto) % (45.0-75.0) Lymphocytes (%) (Auto) % (20.0-45.0) Monocytes (%) (Auto) % (1.0-10.0) Eosinophils (%) (Auto) % (0.0-3.0) Basophils (%) (Auto) % (0.0-2.0) Differential Total Cells Counted 100 Neutrophils % (Manual) 92 % (45-75) H Lymphocytes % (Manual) 5 % (20-45) L Monocytes % (Manual) 3 % (1-10) Eosinophils % (Manual) 0 % (0-3) Basophils % (Manual) 0 % (0-2) Band Neutrophils 0 % (0-8) Platelet Estimate Adequate Platelet Morphology Normal Hypochromasia 1+ Anisocytosis 1+ Sodium Level 146 MMOL/L (136-145) H Potassium Level 3.6 MMOL/L (3.5-5.1) Chloride Level 106 MMOL/L (98-107) Carbon Dioxide Level 36 MMOL/L (21-32) H Anion Gap 4 mmol/L (5-15) L Blood Urea Nitrogen 87 mg/dL (7-18) H Creatinine 2.2 MG/DL (0.55-1.30) H Estimat Glomerular Filtration Rate 28.6 mL/min (>60) Glucose Level 130 MG/DL (74-106) H Uric Acid 8.9 MG/DL (2.6-7.2) H Calcium Level 8.9 MG/DL (8.5-10.1) Phosphorus Level 4.5 MG/DL (2.5-4.9) Magnesium Level 2.7 MG/DL (1.8-2.4) H Iron Level 119 ug/dL (50-175) Total Iron Binding Capacity 316 ug/dL (250-450) Percent Iron Saturation 38 % (15-50) Unsaturated Iron Binding 197 ug/dL (112-346) Ferritin 730 NG/ML (8-388) H Total Bilirubin 1.8 MG/DL (0.2-1.0) H Direct Bilirubin 1.4 MG/DL (0.0-0.3) H Gamma Glutamyl Transpeptidase 175 U/L (5-85) H Aspartate Amino Transf (AST/SGOT) 1858 U/L (15-37) H Alanine Aminotransferase (ALT/SGPT) 3987 U/L (12-78) H Alkaline Phosphatase 121 U/L (46-116) H Ammonia 53 umol/L (11-32) H Total Creatine Kinase 152 U/L (26-308) Troponin I 0.263 ng/mL (0.000-0.056) C-Reactive Protein, Quantitative 17.4 mg/dL (0.00-0.90) H Pro-B-Type Natriuretic Peptide 16944 pg/mL (0-125) H Total Protein 6.6 G/DL (6.4-8.2) Albumin 2.1 G/DL (3.4-5.0) L Globulin 4.5 g/dL Albumin/Globulin Ratio 0.5 (1.0-2.7) L Triglycerides Level 53 MG/DL (30-150) Cholesterol Level 77 MG/DL (< 200) LDL Cholesterol 35 mg/dL (<100) HDL Cholesterol 30 MG/DL (40-60) L Cholesterol/HDL Ratio 2.6 (3.3-4.4) L Lipase 44 U/L (73-393) L Vitamin B12 Level > 2000 PG/ML (193-986) H Folate 42.6 NG/ML (8.6-58.9) Thyroid Stimulating Hormone (TSH) 0.327 uiU/mL (0.358-3.740) Free Thyroxine 2.31 NG/DL (0.76-1.46) H Height (Feet): 6 Weight (Pounds): 185 Medications Current Medications Medications (Trade) Dose Ordered Sig/Natalia Route PRN Reason Start Time Stop Time Status Last Admin Dose Admin Acetaminophen (Tylenol) 650 mg Q4H PRN ORAL FEVER 03/13/20 22:45 04/12/20 22:44 Acetaminophen (Tylenol) 650 mg Q4H PRN ORAL Mild Pain (Pain Scale 1-3) 03/13/20 22:45 04/12/20 22:44 Albuterol/ Ipratropium (Albuterol/ Ipratropium) 3 ml Q6H PRN HHN Shortness of Breath 03/13/20 22:45 03/18/20 22:44 Amlodipine Besylate (Norvasc) 5 mg BID ORAL 03/15/20 10:45 04/14/20 10:44 03/15/20 11:02 Bisacodyl (Dulcolax) 10 mg DAILYPRN PRN RECTAL Constipation 03/13/20 22:45 06/11/20 22:44 Chlorhexidine Gluconate (Shirley-Hex 2%) 1 applic DAILY@2000 TOPIC 03/15/20 20:00 06/13/20 19:59 Dextrose 1,000 ml @ 75 mls/hr [id number] IV 03/15/20 10:30 04/14/20 10:29 03/15/20 10:41 Dextrose (Dextrose 50%) 25 ml Q30M PRN IV Hypoglycemia 03/13/20 22:45 06/11/20 22:44 Dextrose (Dextrose 50%) 50 ml Q30M PRN IV Hypoglycemia 03/13/20 22:45 06/11/20 22:44 Docusate Sodium (Colace) 100 mg Q12HR ORAL 03/15/20 10:00 04/14/20 09:59 03/15/20 09:52 Dopamine HCl/ Dextrose 250 ml @ 0 mls/hr Q24H IV 03/13/20 21:15 03/16/20 21:14 03/13/20 21:09 Heparin Sodium (Porcine) (Heparin 5000 units/ml) 5,000 units EVERY 12 HOURS SUBQ 03/14/20 09:00 04/28/20 08:59 03/15/20 09:46 Hydralazine HCl (Apresoline) 10 mg Q4H PRN IV BP over 160 systolic 03/14/20 12:45 06/12/20 12:44 03/14/20 19:27 Hydralazine HCl (Apresoline) 25 mg EVERY 8 HOURS ORAL 03/14/20 22:00 06/12/20 21:59 03/15/20 05:51 Morphine Sulfate (Morphine Sulfate) 2 mg Q3H PRN IVP Moderate Pain (Pain Scale 4-6) 03/13/20 22:45 03/20/20 22:44 Morphine Sulfate (Morphine Sulfate) 4 mg Q3H PRN IVP Severe Pain (Pain Scale 7-10) 03/13/20 22:45 03/20/20 22:44 Ondansetron HCl (Zofran) 4 mg Q6H PRN IVP Nausea & Vomiting 03/13/20 22:45 04/12/20 22:44 Pantoprazole (Protonix) 40 mg Q12HR IV 03/14/20 21:00 04/13/20 08:59 03/15/20 09:45 Piperacillin Sod/ Tazobactam Sod 3.375 gm/Dextrose 110 ml @ 27.5 mls/hr EVERY 8 HOURS IV 03/14/20 14:00 03/21/20 05:59 03/15/20 05:50 Vancomycin HCl (Vanco pharmacy to dose) 1 ea DAILY PRN MISC Per rx protocol 03/14/20 13:00 04/13/20 12:59 Assessment/Plan Assessment/Plan: 85yo M with: Afebrile Leukocytosis to 21, improved GNR bacteremia most likely 2/2 UTI Obstructive uropathy s/p drainage w/ aggarwal 03/13 BCx +GNR UCx +GNR COVID rapid Ag neg CXR: BL pna Abd US neg NIURKA, improving Elevated LFTs - AST 1858 / ALT 3987 Acute on chronic resp failure S/p trach/PEG, vent dependent Prior CVA Hemiplegia Dysphagia Gastroparesis Pressure ulcers Nonverbal SNF resident Plan: Cont vanco/Zosyn empiric #2 for bacteremia/UTI/pna Obtain resp cx F/u BCx, UCx +GNRs Trend WBC Monitor CBC/CMP Monitor resp status Monitor temp curve, hemodynamics D/w RN Thank you for this consult. [facility] will continue to follow. Carmen Hines M.D. Mar 15, 2020 13:11
--- NOTE | 2020-03-15 14:00 | NUR ---
NURSE NOTES: Pt repositioned. No distress noted.
--- NOTE | 2020-03-15 15:15 | Consultation ---
DATE OF CONSULTATION: 03/15/2020 PULMONARY CONSULTATION HISTORY OF PRESENT ILLNESS: This is an 85-year-old male with chronic ventilator-dependent respiratory failure with chronic tracheostomy and chronic G-tube in place. He was sent in from a nursing facility due to bradycardia. The patient was markedly bradycardic and was seen by Cardiology. His heart rate had dropped initially into the low 20s and he also became hypotensive and received medications for hyperkalemia with improvement in symptomatology. He was also placed on a transcutaneous pacer. Initially, the patient was also found to have pneumonia and started on broad-spectrum antibiotics. At this point, the patient is looking and feeling better. He is seen in the ICU and discussed with bedside nursing staff. MEDICAL HISTORY: Notable for chronic gastrostomy chronic G-tube, chronic tracheostomy, paroxysmal AFib, previous CVA, decubitus ulcers, seizure disorder, probable liver cirrhosis, history of renal mass, critical aortic stenosis, pulmonary hypertension. CURRENT MEDICATIONS: Amlodipine, dopamine, DuoNeb, heparin subcu, hydralazine, morphine p.r.n., Protonix, Zosyn, and vancomycin. ALLERGIES: None reported. REVIEW OF SYSTEMS: Not obtainable. PHYSICAL EXAMINATION: GENERAL: An 85-year-old obese male. HEENT: Unremarkable. Tracheostomy site is clean. LUNGS: Clear breath sounds bilaterally. ABDOMEN: Soft. EXTREMITIES: There is no edema. VITAL SIGNS: Ventilator settings are noted on AC mode. Blood pressure is 160/60, heart rate 64, respirations 18, O2 sat 95% on 35% oxygen. LABORATORY DATA: Lab testing shows white count now 9.4, initially 21,000, hemoglobin 9.1, platelet count is normal. ABG 7.46, pCO2 47, pO2 373. Urinalysis shows a few pus cells. IMAGING STUDIES: X-ray of chest was obtained, which shows bilateral patchy airspace disease. IMPRESSION: 1. Worsening pulmonary infiltrates. 2. Pneumonia, healthcare associated. 3. Bacteremia with gram-negative rods. 4. UTI with gram-negative rods. 5. Negative COVID-19 rapid gene assay. 6. Chronic respiratory failure. 7. Seizure disorder. 8. Liver cirrhosis. 9. Paroxysmal atrial fibrillation. DISCUSSION: Agree with current medications and care. We will continue assist-control mechanical ventilation. ABG is adequate. We will decrease FiO2 as tolerated. We will follow as cage maker. Discussed with Dr. Danielle. Rylan Otero M.D. DR: NOVA JOB#: [id number] CC:
--- NOTE | 2020-03-15 15:21 | NUR ---
NURSE NOTES: Pt just went into Afib w/RVR. Message left for Dr Barry and Dr Danielle. Obtaining 12 lead EKG at this time.
--- NOTE | 2020-03-15 15:35 | NUR ---
NURSE NOTES: Received call back from Dr Barry with order to start cardizem gtt at 10 mg/hr and titrate to keep HR less than 100 bpm + dc all GT BP meds. D/c transfer order per Dr Danielle.
--- NOTE | 2020-03-15 15:39 | NUR ---
NURSE NOTES: Flores w/ Lukas from pharmacy - [facility] gtt currently being made - will be sent up in 10 min. Pt is normotensive. No distress noted. Afib w/ RVR at 125 bpm.
--- NOTE | 2020-03-15 16:00 | NUR ---
NURSE NOTES: Pt repositioned. Afebrile. Still in Afib w/ RVR. Waiting for cardizem gtt.
--- NOTE | 2020-03-15 16:15 | NUR ---
NURSE NOTES: Dr Barry made aware pt converted back to sinus rhythm within minutes of starting cardizem gtt - per Dr Barry, keep pt on gtt (titrate to keep HR less than 100 - keep pt on lowest dose of 2.5 mg/hr continuously) until further notice from Dr Barry.
--- NOTE | 2020-03-15 18:00 | NUR ---
NURSE NOTES: Pt repositioned. Remains in NSR. No distress noted.
--- NOTE | 2020-03-15 19:41 | NUR ---
NURSE HAND-OFF REPORT: Latest Vital Signs: Temperature 98.3 , Pulse 61 , B/P 117 /45 , Respiratory Rate 15 , O2 SAT 100 , Mechanical Ventilator, FiO2 35%. Vital Sign Comment: stable - now in sinus rhythm w/ 2.5 mg/hr of cardizem gtt EKG Rhythm: Sinus Rhythm (was in AFIB w/ RVR this afternoon) Rhythm change?: José Miguel RICARDO Notified?: Y -Dr Jhonny RICARDO Response: pt now on cardizem gtt Latest Wall Fall Score: 75 Fall Risk: High Risk Safety Measures: Call light Within Reach, Bed Alarm Zone 3, Side Rails Side Rails x3, Bed position Low and Locked. Fall Precautions: Yellow Socks Yellow Gown Door Sign Patient Fall Education Report given to LISSA Pappas.
--- NOTE | 2020-03-15 20:00 | NUR ---
NURSE NOTES: Received patient and report from Isabel ALCARAZ, RN. Patient is observed resting in bed and noted to opens eyes spontaneously, semi-obtunded, does not track and is non-verbal. Patient is trached dependent and appears to be tolerating current vent settings well. Vent settings as follows: AC 14, TV 500 FiO2 35% PEEP 5 with an O2 saturation of 100% noted. Bilateral lower lobe breath sounds noted to be diminished upon auscultation. Pt noted to be NSR on tele monitor with a HR of 67 with BP of 125/80. L femoral TLC noted which remains asymptomatic, intact and patent. Central line dressing remains clean, dry and intact. D5W at 75ml/hr and Diltiazem at 2.5mg/hr currently infusing. Active bowel sounds noted in all four quadrants; abdomen remains large, round and soft. GT noted which remains intact and secured. Glucerna 1.5 currently infusing at 55mL/hr as ordered. Johnson catheter noted draining yellow urine to gravity. Diagnostics reviewed at bedside. Skin alterations noted. Bilateral soft wrist restraints remain in place for pt safety. Will provide pt education again with resolution of anxiety in order to assess pt for removal criteria. ROM exercises performed per pt tolerance and CMS remains intact. Fall, Aspiration and Skin precautions observed. Pt repositioned for comfort and safety. Pt remains resting in bed; Bed remains in the lowest position with the safety wheels engaged, call light within reach, side rails up x2 and bed alarm activated. Will continue plan of care. Will continue to monitor.
[2020-03-15] MEDS: Dyna-Hex 2% Top Sol 2oz TOPIC SCH (20:30)
--- NOTE | 2020-03-15 20:30 | NUR ---
NURSE NOTES: fabric pattern grader at bedside setting up to perform EEG on patient. Patient suctioned and and given oral care, patient noted to have temperature of 99.6F. Cooling measures performed. Remains on Cardizem gtt at 2.5mg/hr. HR is 64 NSR and BP maintaining within normotensive ranges. Will continue to monitor.
[2020-03-15] MEDS: Morphine Sulfate 4mg/ml Inj (IV USE ONLY) IVP PRN (20:31)
--- NOTE | 2020-03-15 22:00 | NUR ---
NURSE NOTES: EEG still being performed. Patient remains stable at this time, SpO2 remains at 100% while at 35% FiO2. Shifted/repositioned patient. Cooling measures are ongoing at this time. No acute distress. Will continue to monitor. HR NSR, BP within normotensive ranges.
--- NOTE | 2020-03-15 23:10 | Neurology Progress Note ---
Interim History Interim History ROS Limited/Unobtainable: Yes Interim History no new deficits ct brain not done yet Objective Physical Exam Last Vital Signs Date Time Temp Pulse Resp B/P (MAP) Pulse Ox O2 Delivery O2 Flow Rate FiO2 03/15/20 22:55 61 16 35 03/15/20 22:00 124/57 (79) 100 03/15/20 20:00 99.4 03/15/20 20:00 Mechanical Ventilator Mechanical Ventilator 03/15/20 03:51 40.0 Laboratory Tests Test 03/15/20 05:19 White Blood Count 9.4 K/UL (4.8-10.8) Red Blood Count 2.98 M/UL (4.70-6.10) L Hemoglobin 9.1 G/DL (14.2-18.0) L Hematocrit 28.1 % (42.0-52.0) L Mean Corpuscular Volume 94 FL (80-99) Mean Corpuscular Hemoglobin 30.6 PG (27.0-31.0) Mean Corpuscular Hemoglobin Concent 32.4 G/DL (32.0-36.0) Red Cell Distribution Width 16.0 % (11.6-14.8) H Platelet Count 161 K/UL (150-450) Mean Platelet Volume 9.6 FL (6.5-10.1) Neutrophils (%) (Auto) % (45.0-75.0) Lymphocytes (%) (Auto) % (20.0-45.0) Monocytes (%) (Auto) % (1.0-10.0) Eosinophils (%) (Auto) % (0.0-3.0) Basophils (%) (Auto) % (0.0-2.0) Differential Total Cells Counted 100 Neutrophils % (Manual) 92 % (45-75) H Lymphocytes % (Manual) 5 % (20-45) L Monocytes % (Manual) 3 % (1-10) Eosinophils % (Manual) 0 % (0-3) Basophils % (Manual) 0 % (0-2) Band Neutrophils 0 % (0-8) Platelet Estimate Adequate Platelet Morphology Normal Hypochromasia 1+ Anisocytosis 1+ Sodium Level 146 MMOL/L (136-145) H Potassium Level 3.6 MMOL/L (3.5-5.1) Chloride Level 106 MMOL/L (98-107) Carbon Dioxide Level 36 MMOL/L (21-32) H Anion Gap 4 mmol/L (5-15) L Blood Urea Nitrogen 87 mg/dL (7-18) H Creatinine 2.2 MG/DL (0.55-1.30) H Estimat Glomerular Filtration Rate 28.6 mL/min (>60) Glucose Level 130 MG/DL (74-106) H Uric Acid 8.9 MG/DL (2.6-7.2) H Calcium Level 8.9 MG/DL (8.5-10.1) Phosphorus Level 4.5 MG/DL (2.5-4.9) Magnesium Level 2.7 MG/DL (1.8-2.4) H Iron Level 119 ug/dL (50-175) Total Iron Binding Capacity 316 ug/dL (250-450) Percent Iron Saturation 38 % (15-50) Unsaturated Iron Binding 197 ug/dL (112-346) Ferritin 730 NG/ML (8-388) H Total Bilirubin 1.8 MG/DL (0.2-1.0) H Direct Bilirubin 1.4 MG/DL (0.0-0.3) H Gamma Glutamyl Transpeptidase 175 U/L (5-85) H Aspartate Amino Transf (AST/SGOT) 1858 U/L (15-37) H Alanine Aminotransferase (ALT/SGPT) 3987 U/L (12-78) H Alkaline Phosphatase 121 U/L (46-116) H Ammonia 53 umol/L (11-32) H Total Creatine Kinase 152 U/L (26-308) Troponin I 0.263 ng/mL (0.000-0.056) C-Reactive Protein, Quantitative 17.4 mg/dL (0.00-0.90) H Pro-B-Type Natriuretic Peptide 49107 pg/mL (0-125) H Total Protein 6.6 G/DL (6.4-8.2) Albumin 2.1 G/DL (3.4-5.0) L Globulin 4.5 g/dL Albumin/Globulin Ratio 0.5 (1.0-2.7) L Triglycerides Level 53 MG/DL (30-150) Cholesterol Level 77 MG/DL (< 200) LDL Cholesterol 35 mg/dL (<100) HDL Cholesterol 30 MG/DL (40-60) L Cholesterol/HDL Ratio 2.6 (3.3-4.4) L Lipase 44 U/L (73-393) L Vitamin B12 Level > 2000 PG/ML (193-986) H Folate 42.6 NG/ML (8.6-58.9) Thyroid Stimulating Hormone (TSH) 0.327 uiU/mL (0.358-3.740) Free Thyroxine 2.31 NG/DL (0.76-1.46) H Neurologic Exam Mental Status: awake Objective somnolent open eyes, agitated right sided parkinsonism, withdraws all 4. 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 parkinsonism on exam ,likely vascular icu monitoring map >65 cards following Fu cultures cont atb eeg FU CT brain when stable - not emergent Winston Brown MD Mar 15, 2020 23:10
[2020-03-16] VITALS (39 sets, daily range): BP systolic 100–166; BP diastolic 47–102
--- NOTE | 2020-03-16 | NUR ---
NURSE NOTES: EEG finished, patient tolerated well. Patient was given oral care and repositioned, vitals remains stable NSR on the night monitor, pulses present. Patient suctioned. Cooling measures ongoing. Will continue to monitor.
--- NOTE | 2020-03-16 02:00 | NUR ---
NURSE NOTES: Patient repositioned and given oal care, NAD at this time VSS. Patient continues with cooling measures. Patients Temperature stays around the mid-99's range. NAD at this time, will continue to monitor.
--- NOTE | 2020-03-16 04:00 | NUR ---
NURSE NOTES: Bed bath given, labs drawn and sent with electrical maintenance man, patients VSS, NSR on the monitor, sometimes goes into controlled rhythm Afib. Reposition patient and oral care provided, lavaged patient also.
[2020-03-16 05:19] LABS: BASOPHILS % (AUTO) 1.3 % (0.0-2.0); HEMATOCRIT 28.9 % (42.0-52.0); HEMOGLOBIN 9.6 G/DL (14.2-18.0); LYMPHOCYTES % (AUTO) 7.5 % (20.0-45.0); MEAN CORPUSCULAR VOLUME 93 FL (80-99); MONOCYTES % (AUTO) 6.2 % (1.0-10.0); NEUTROPHILS % (AUTO) 84.9 % (45.0-75.0); PLATELET COUNT 176 K/UL (150-450); RED CELL DISTRIBUTION WIDTH 16.5 % (11.6-14.8); WHITE BLOOD COUNT 13.1 K/UL (4.8-10.8)
[2020-03-16 05:22] LABS: PHOSPHORUS 2.7 MG/DL (2.5-4.9)
[2020-03-16 05:48] LABS: ALBUMIN 2.1 G/DL (3.4-5.0); ALBUMIN/GLOBULIN RATIO 0.4 (1.0-2.7); BILIRUBIN,TOTAL 1.7 MG/DL (0.2-1.0); CALCIUM 8.7 MG/DL (8.5-10.1); CREATININE 1.7 MG/DL (0.55-1.30); POTASSIUM 3.3 MMOL/L (3.5-5.1)
[2020-03-16] MEDS ORDERED: Vancomycin 1.25gm Premix q24h IVPB SCH (06:00)
--- NOTE | 2020-03-16 06:00 | NUR ---
NURSE NOTES: Vanco trough performed earlier, new dose order Vanco given from pharmacy. Afib on the monitor, pulses present. NAD at this time. VSS other than the low grade temp.
[2020-03-16] MEDS: Piperacillin/Tazobactam 3.375 GM in D5W 110 ML IV SCH ×3 (06:19→22:03)
[2020-03-16 06:53] LABS: BILIRUBIN,DIRECT 1.3 MG/DL (0.0-0.3)
--- NOTE | 2020-03-16 07:02 | NUR ---
HAND-OFF: Report given to Natalia ALCARAZ.
--- NOTE | 2020-03-16 07:03 | NUR ---
NURSE NOTES: Pt received from LISSA Pappas. Pt is obtunded, opens eyes spontaneously, pupils equal and round 3mm w/ sluggish rxn to light; gag reflex intact. Pt unable to follow commands. Pt is Afib to teletypesetter monitor with 2+ radial and dorsalis pedis pulses. 1 + pitting edema noted to hands, arms, legs, and feet. Pt is afebrile. cap refill less than 2 sec. Pt has a trache connected to vent with the following settings: AC 14 TV 500 FiO2 35% Peep 5. Bilat upper lung sounds noted w/ wheezing (requested PRN breathing tx - RT to administer shortly) and lower lobes diminished upon auscultation. Pt has a GT running Glucerna 1.5 at 55 cc/hr without gastric residuals at this time. Abdomen is round, soft, and non-tender with active bowel sounds to all quadrants. F/C noted draining clear, yellow urine. Skin alterations noted. Pt has a Left femoral TLC w/dry and intact dressing running D5W at 75 cc/hr, cardizem gtt at 2.5 ml/hr (2.5 mg/hr), and zosyn at 27.5 cc/hr. Bed in lowest position, alarm on, side rails up x 2 and padded per seizure precaution, call light within reach. Will continue to monitor.
--- NOTE | 2020-03-16 08:00 | NUR ---
NURSE NOTES: Pt repositioned. PO care provided. Afebrile.
--- NOTE | 2020-03-16 09:04 | Infectious Diseases Prog Note ---
Assessment/Plan 85yo M with: Afebrile Leukocytosis to 21, improved GNR bacteremia most likely 2/2 UTI Obstructive uropathy s/p drainage w/ aggarwal 03/13 BCx +GNR UCx +GNR COVID rapid Ag neg CXR: BL pna Abd US neg 03/15 Resp cx p NIURKA, improving Elevated LFTs - AST 1858 / ALT 3987 >> improving Acute on chronic resp failure S/p trach/PEG, vent dependent Prior CVA Hemiplegia Dysphagia Gastroparesis Pressure ulcers Nonverbal SNF resident Plan: Stop vanco #2 Cont Zosyn #3 for bacteremia/UTI/pna Acute hep panel F/u 03/15 resp cx F/u BCx, UCx +GNRs Trend WBC Monitor CBC/CMP Monitor resp status Monitor temp curve, hemodynamics D/w RN Thank you for this consult. [facility] will continue to follow. Subjective Allergies: Coded Allergies: No Known Allergies (Unverified , 02/11/20) AF WBC 13, overall improving NIURKA and LFTs improving NAD on vent In and out of Afib Objective Last 24 Hour Vital Signs Date Time Temp Pulse Resp B/P (MAP) Pulse Ox O2 Delivery O2 Flow Rate FiO2 03/16/20 07:29 84 17 35 03/16/20 07:00 93 19 130/102 (111) 100 03/16/20 06:30 97 19 125/74 (91) 100 03/16/20 06:00 88 19 133/70 (91) 100 03/16/20 05:30 95 19 137/59 (85) 100 03/16/20 05:00 99 20 131/79 (96) 100 03/16/20 04:30 79 21 133/93 (106) 100 03/16/20 04:00 99.4 85 21 162/87 (112) 100 03/16/20 04:00 Mechanical Ventilator Mechanical Ventilator 03/16/20 04:00 89 03/16/20 03:30 74 16 166/88 (114) 100 03/16/20 03:07 61 16 35 03/16/20 03:00 60 16 133/54 (80) 100 03/16/20 02:30 60 16 120/48 (72) 100 03/16/20 02:00 61 16 133/53 (79) 100 03/16/20 01:30 63 19 130/56 (80) 100 03/16/20 01:00 61 15 140/56 (84) 100 03/16/20 00:30 60 15 122/51 (74) 100 03/16/20 00:00 60 16 125/47 (73) 100 03/16/20 00:00 63 03/16/20 00:00 Mechanical Ventilator Mechanical Ventilator 03/15/20 23:30 63 18 139/61 (87) 100 03/15/20 23:00 62 16 137/56 (83) 100 03/15/20 22:55 61 16 35 03/15/20 22:30 61 15 125/47 (73) 100 03/15/20 22:00 62 15 124/57 (79) 100 03/15/20 21:30 64 14 124/85 (98) 100 03/15/20 21:00 63 16 137/97 (110) 100 03/15/20 20:30 65 19 126/48 (74) 100 03/15/20 20:00 99.4 66 19 133/52 (79) 100 03/15/20 20:00 35 03/15/20 20:00 Mechanical Ventilator Mechanical Ventilator 03/15/20 19:38 61 15 35 03/15/20 19:30 61 16 120/48 (72) 100 03/15/20 19:21 61 03/15/20 19:00 62 16 117/45 (69) 100 03/15/20 18:45 64 16 121/48 (72) 100 03/15/20 18:30 64 16 121/47 (71) 100 03/15/20 18:15 63 15 121/46 (71) 100 03/15/20 18:00 62 16 117/47 (70) 100 03/15/20 17:45 62 17 115/47 (69) 100 03/15/20 17:30 61 15 117/49 (71) 100 03/15/20 17:15 63 15 120/48 (72) 100 03/15/20 17:15 63 15 120/48 (72) 100 03/15/20 17:00 64 15 108/44 (65) 100 03/15/20 16:45 65 16 110/45 (66) 100 03/15/20 16:45 65 16 110/45 (66) 100 03/15/20 16:30 66 16 113/46 (68) 100 03/15/20 16:30 66 16 113/46 (68) 100 03/15/20 16:30 66 16 113/46 (68) 100 03/15/20 16:15 71 17 118/51 (73) 100 03/15/20 16:15 71 17 118/51 (73) 100 03/15/20 16:15 71 17 118/51 (73) 100 03/15/20 16:02 130 118/54 03/15/20 16:00 126 03/15/20 16:00 Mechanical Ventilator Mechanical Ventilator 03/15/20 16:00 98.3 130 18 118/54 (75) 100 03/15/20 16:00 98.3 130 18 118/54 (75) 100 03/15/20 16:00 35 03/15/20 16:00 72 18 118/54 (75) 100 03/15/20 15:45 134 17 117/81 (93) 100 03/15/20 15:45 134 17 117/81 (93) 100 03/15/20 15:45 134 17 117/81 (93) 100 03/15/20 15:40 134 21 106/60 (75) 100 03/15/20 15:30 120 17 124/67 (86) 100 03/15/20 15:30 120 17 124/67 (86) 100 03/15/20 15:30 120 17 124/67 (86) 100 03/15/20 15:22 130 25 35 03/15/20 15:00 61 15 127/51 (76) 100 03/15/20 15:00 61 15 127/51 (76) 100 03/15/20 15:00 61 15 127/51 (76) 100 03/15/20 14:36 166/68 03/15/20 14:00 60 15 166/68 (100) 100 03/15/20 14:00 59 15 166/68 (100) 100 03/15/20 14:00 59 15 166/68 (100) 100 03/15/20 13:00 58 14 146/61 (89) 100 03/15/20 13:00 61 14 145/61 (89) 100 03/15/20 13:00 61 14 145/61 (89) 100 03/15/20 13:00 58 14 146/61 (89) 100 03/15/20 12:00 57 03/15/20 12:00 99.3 55 14 137/55 (82) 100 03/15/20 12:00 35 03/15/20 12:00 Mechanical Ventilator Mechanical Ventilator 03/15/20 12:00 55 14 137/55 (82) 100 03/15/20 11:20 56 14 35 03/15/20 11:02 61 152/66 03/15/20 11:00 63 17 152/66 (94) 100 03/15/20 11:00 63 17 152/66 (94) 100 03/15/20 10:00 60 14 151/81 (104) 100 03/15/20 10:00 60 14 151/81 (104) 100 Height (Feet): 6 Weight (Pounds): 185 Gen: NAD in bed HEENT: NCAT CV: RRR Pulm: CTAB Abd: Soft, NTND Ext: No c/c/e Neuro: Awake Microbiology Date/Time Source Procedure Growth Status 03/13/20 21:41 Rectum Received 03/13/20 20:25 Straight Cath Urine Culture - Preliminary Gram Negative Huy Resulted 03/13/20 19:40 Blood Blood Culture - Preliminary Gram Negative Huy Resulted 03/13/20 19:37 Nasopharynx SARS-CoV-2 RdRp Gene Assay - Final Complete 03/13/20 19:30 Blood Blood Culture - Preliminary Gram Negative Huy Resulted Laboratory Tests Test 03/16/20 04:00 White Blood Count 13.1 K/UL (4.8-10.8) H Red Blood Count 3.10 M/UL (4.70-6.10) L Hemoglobin 9.6 G/DL (14.2-18.0) L Hematocrit 28.9 % (42.0-52.0) L Mean Corpuscular Volume 93 FL (80-99) Mean Corpuscular Hemoglobin 30.9 PG (27.0-31.0) Mean Corpuscular Hemoglobin Concent 33.1 G/DL (32.0-36.0) Red Cell Distribution Width 16.5 % (11.6-14.8) H Platelet Count 176 K/UL (150-450) Mean Platelet Volume 9.4 FL (6.5-10.1) Neutrophils (%) (Auto) 84.9 % (45.0-75.0) H Lymphocytes (%) (Auto) 7.5 % (20.0-45.0) L Monocytes (%) (Auto) 6.2 % (1.0-10.0) Eosinophils (%) (Auto) 0.0 % (0.0-3.0) Basophils (%) (Auto) 1.3 % (0.0-2.0) Sodium Level 146 MMOL/L (136-145) H Potassium Level 3.3 MMOL/L (3.5-5.1) L Chloride Level 106 MMOL/L (98-107) Carbon Dioxide Level 36 MMOL/L (21-32) H Anion Gap 4 mmol/L (5-15) L Blood Urea Nitrogen 73 mg/dL (7-18) H Creatinine 1.7 MG/DL (0.55-1.30) H Estimat Glomerular Filtration Rate 38.5 mL/min (>60) Glucose Level 134 MG/DL (74-106) H Uric Acid 6.4 MG/DL (2.6-7.2) Calcium Level 8.7 MG/DL (8.5-10.1) Phosphorus Level 2.7 MG/DL (2.5-4.9) Magnesium Level 2.2 MG/DL (1.8-2.4) Total Bilirubin 1.7 MG/DL (0.2-1.0) H Direct Bilirubin 1.3 MG/DL (0.0-0.3) H Aspartate Amino Transf (AST/SGOT) 1852 U/L (15-37) H Alanine Aminotransferase (ALT/SGPT) 3007 U/L (12-78) H Alkaline Phosphatase 132 U/L (46-116) H Total Protein 6.9 G/DL (6.4-8.2) Albumin 2.1 G/DL (3.4-5.0) L Globulin 4.8 g/dL Albumin/Globulin Ratio 0.4 (1.0-2.7) L Random Vancomycin Level 14.6 ug/mL Current Medications Medications (Trade) Dose Ordered Sig/Natalia Route PRN Reason Start Time Stop Time Status Last Admin Dose Admin Acetaminophen (Tylenol) 650 mg Q4H PRN ORAL FEVER 03/13/20 22:45 04/12/20 22:44 Acetaminophen (Tylenol) 650 mg Q4H PRN ORAL Mild Pain (Pain Scale 1-3) 03/13/20 22:45 04/12/20 22:44 Albuterol/ Ipratropium (Albuterol/ Ipratropium) 3 ml Q6H PRN HHN Shortness of Breath 03/13/20 22:45 03/18/20 22:44 Bisacodyl (Dulcolax) 10 mg DAILYPRN PRN RECTAL Constipation 03/13/20 22:45 06/11/20 22:44 Chlorhexidine Gluconate (Shirley-Hex 2%) 1 applic DAILY@2000 TOPIC 03/15/20 20:00 06/13/20 19:59 03/15/20 20:30 Dextrose 1,000 ml @ 75 mls/hr [id number] IV 03/15/20 10:30 04/14/20 10:29 03/16/20 01:00 Dextrose (Dextrose 50%) 25 ml Q30M PRN IV Hypoglycemia 03/13/20 22:45 06/11/20 22:44 Dextrose (Dextrose 50%) 50 ml Q30M PRN IV Hypoglycemia 03/13/20 22:45 06/11/20 22:44 Diltiazem HCl 125 mg/Dextrose 125 ml @ 0 mls/hr Q24H IVPB 03/15/20 15:36 03/16/20 15:36 03/15/20 16:02 Docusate Sodium (Colace) 100 mg Q12HR ORAL 03/15/20 10:00 04/14/20 09:59 03/15/20 20:30 Heparin Sodium (Porcine) (Heparin 5000 units/ml) 5,000 units EVERY 12 HOURS SUBQ 03/14/20 09:00 04/28/20 08:59 03/15/20 20:33 Morphine Sulfate (Morphine Sulfate) 2 mg Q3H PRN IVP Moderate Pain (Pain Scale 4-6) 03/13/20 22:45 03/20/20 22:44 Morphine Sulfate (Morphine Sulfate) 4 mg Q3H PRN IVP Severe Pain (Pain Scale 7-10) 03/13/20 22:45 03/20/20 22:44 03/15/20 20:31 Ondansetron HCl (Zofran) 4 mg Q6H PRN IVP Nausea & Vomiting 03/13/20 22:45 1/4/21 22:44 Pantoprazole (Protonix) 40 mg Q12HR IV 03/14/20 21:00 04/13/20 08:59 03/15/20 20:30 Piperacillin Sod/ Tazobactam Sod 3.375 gm/Dextrose 110 ml @ 27.5 mls/hr EVERY 8 HOURS IV 03/14/20 14:00 03/21/20 05:59 03/16/20 06:19 Vancomycin HCl (Vanco pharmacy to dose) 1 ea DAILY PRN MISC Per rx protocol 03/14/20 13:00 04/13/20 12:59 Carmen Hines M.D. Mar 16, 2020 09:04
[2020-03-16] MEDS: Heparin 5000 units/ml inj SUBQ SCH ×2 (09:14→20:10)
[2020-03-16] MEDS: Pantoprazole Inj IV SCH ×2 (09:14→20:10)
[2020-03-16] MEDS: Docusate 100mg/10ml Liq ORAL SCH ×2 (09:14→20:10)
--- NOTE | 2020-03-16 10:00 | NUR ---
NURSE NOTES: Pt repositioned. Breathing tx being administered per RT at this time. No acute distress noted.
[2020-03-16] MEDS ORDERED: Enalaprilat 2.5mg/2ml Inj IV PRN (11:30)
--- NOTE | 2020-03-16 11:30 | NUR ---
NURSE NOTES: Pt seen by Dr Barry. Orders placed for cardizem via GT (dc cardizem gtt after 1st GT cardizem dose per Dr Barry). Addendum: 03/16/20 at 1639 by Natalia Chapin RN Amendment: NURSE NOTES: Pt seen by Dr Barry. Orders placed for cardizem via GT (dc cardizem gtt 1 hour after 1st GT cardizem dose is given per Dr Barry).
--- NOTE | 2020-03-16 11:36 | NUR ---
CASE MANAGEMENT:REVIEW 03/16/20 SI: PNEUMONIA. UTI TRACH/VENT 99.4 85 21 162/87 100% ON VENT SUPPORT W/35% FIO2 WBC+13.1 K-3.3 BUN+73 CR+1.7 AST/ALT+1852/3007 IS: CARDIZEM GTT IVF@75/HR IV ZOSYN Q8HRS IV KCL X1 : ICU STATUS DCP: FROM [facility] CONV PLAN: DC CARDIZEM GTT 1 HOUR AFTER ORAL CARDIZEM DOSE
--- NOTE | 2020-03-16 11:56 | NUR ---
NURSE NOTES: Dr Hines at bedside assessing pt and made aware pt is VRE rectum positive.
[2020-03-16] MEDS ORDERED: dilTIAZem HCl 60mg tab ORAL SCH (12:00)
--- NOTE | 2020-03-16 12:00 | NUR ---
NURSE NOTES: Pt repositioned. PO care provided. Axillary temp 99 F. No distress noted. Remains in AFIB.
--- NOTE | 2020-03-16 12:03 | Neurology Progress Note ---
Interim History Interim History ROS Limited/Unobtainable: Yes Interim History open eyes, no new deficits withdraws to pain eeg no seizures prelim Objective Physical Exam Last Vital Signs Date Time Temp Pulse Resp B/P (MAP) Pulse Ox O2 Delivery O2 Flow Rate FiO2 03/16/20 10:23 82 20 100 Mechanical Ventilator 35 92 16 35 03/16/20 07:00 130/102 (111) 03/16/20 04:00 99.4 03/15/20 03:51 40.0 Laboratory Tests Test 03/16/20 04:00 03/16/20 09:00 White Blood Count 13.1 K/UL (4.8-10.8) H Red Blood Count 3.10 M/UL (4.70-6.10) L Hemoglobin 9.6 G/DL (14.2-18.0) L Hematocrit 28.9 % (42.0-52.0) L Mean Corpuscular Volume 93 FL (80-99) Mean Corpuscular Hemoglobin 30.9 PG (27.0-31.0) Mean Corpuscular Hemoglobin Concent 33.1 G/DL (32.0-36.0) Red Cell Distribution Width 16.5 % (11.6-14.8) H Platelet Count 176 K/UL (150-450) Mean Platelet Volume 9.4 FL (6.5-10.1) Neutrophils (%) (Auto) 84.9 % (45.0-75.0) H Lymphocytes (%) (Auto) 7.5 % (20.0-45.0) L Monocytes (%) (Auto) 6.2 % (1.0-10.0) Eosinophils (%) (Auto) 0.0 % (0.0-3.0) Basophils (%) (Auto) 1.3 % (0.0-2.0) Sodium Level 146 MMOL/L (136-145) H Potassium Level 3.3 MMOL/L (3.5-5.1) L Chloride Level 106 MMOL/L (98-107) Carbon Dioxide Level 36 MMOL/L (21-32) H Anion Gap 4 mmol/L (5-15) L Blood Urea Nitrogen 73 mg/dL (7-18) H Creatinine 1.7 MG/DL (0.55-1.30) H Estimat Glomerular Filtration Rate 38.5 mL/min (>60) Glucose Level 134 MG/DL (74-106) H Uric Acid 6.4 MG/DL (2.6-7.2) Calcium Level 8.7 MG/DL (8.5-10.1) Phosphorus Level 2.7 MG/DL (2.5-4.9) Magnesium Level 2.2 MG/DL (1.8-2.4) Total Bilirubin 1.7 MG/DL (0.2-1.0) H Direct Bilirubin 1.3 MG/DL (0.0-0.3) H Aspartate Amino Transf (AST/SGOT) 1852 U/L (15-37) H Alanine Aminotransferase (ALT/SGPT) 3007 U/L (12-78) H Alkaline Phosphatase 132 U/L (46-116) H Total Protein 6.9 G/DL (6.4-8.2) Albumin 2.1 G/DL (3.4-5.0) L Globulin 4.8 g/dL Albumin/Globulin Ratio 0.4 (1.0-2.7) L Random Vancomycin Level 14.6 ug/mL Hepatitis A IgM Antibody Pending Hepatitis B Surface Antigen Pending Hepatitis B Core IgM Antibody Pending Hepatitis C Antibody Pending Neurologic Exam Mental Status: awake Objective somnolent open eyes, agitated right sided parkinsonism, withdraws all 4. 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 parkinsonism on exam ,likely vascular icu monitoring map >65 cards following cont atb cont heparin eeg no seizures FU CT brain when stable - not emergent Winston Brown MD Mar 16, 2020 12:03
--- NOTE | 2020-03-16 12:05 | NUR ---
NURSE NOTES: Pt seen by Dr Brown. OK to reschedule Brain CT for tomorrow (once pt is more stable and off cardizem gtt).
--- NOTE | 2020-03-16 12:23 | Cardiac Electrophysiology PN ---
Assessment/Plan Assessment/Plan 1. Profound bradycardia, heart rate dropping to 20s associated with hypotension, likely due to the patient's hyperkalemia as well as metoprolol. The metoprolol has been discontinued and the patient received atropine and hyperkalemia was treated. Currently, he is not bradycardic 2. Troponin elevation 0.2, 0.4, 0.2, likely due to demand ischemia in this patient with severe sepsis and initial septic shock. EF 55% 3. Initial hypotension and shock. Likely due to sepsis. White count is improving and the patient is now off both Levophed and dopamine. 4. Hypertension. Within 24 hours, his blood pressure improved from 70 to 200s. The patient is on IV hydralazine p.r.n. We will avoid any kind of AV-grecia blockers. Cannot use NNAMDI inhibitor or angiotensin-receptor blockers in view of hyperkalemia and acute renal failure either. We cannot use clonidine patch either in view of bradycardia. On Cardizem and add prn vasotec and clonidine 5. Atrial fib with RVR. Change Cardizem drip to 60 GT q 6hr 6. Ventilator-dependent respiratory failure, status post tracheostomy. 7. Dysphagia, status post PEG placement. 8. CVA with hemiplegia. 9. Pressure ulcers. 10. Anemia. 11. Shock liver. [employer] Subjective Subjective On the Vent via trach. . Troponins flat and low Cardizem drip is decreased to 2 mg/hr Objective Last 24 Hour Vital Signs Date Time Temp Pulse Resp B/P (MAP) Pulse Ox O2 Delivery O2 Flow Rate FiO2 03/16/20 10:23 82 20 100 Mechanical Ventilator 35 92 16 35 03/16/20 08:00 112 03/16/20 07:29 84 17 35 03/16/20 07:00 93 19 130/102 (111) 100 03/16/20 06:30 97 19 125/74 (91) 100 03/16/20 06:00 88 19 133/70 (91) 100 03/16/20 05:30 95 19 137/59 (85) 100 03/16/20 05:00 99 20 131/79 (96) 100 03/16/20 04:30 79 21 133/93 (106) 100 03/16/20 04:00 99.4 85 21 162/87 (112) 100 03/16/20 04:00 Mechanical Ventilator Mechanical Ventilator 03/16/20 04:00 89 03/16/20 03:30 74 16 166/88 (114) 100 03/16/20 03:07 61 16 35 03/16/20 03:00 60 16 133/54 (80) 100 03/16/20 02:30 60 16 120/48 (72) 100 03/16/20 02:00 61 16 133/53 (79) 100 03/16/20 01:30 63 19 130/56 (80) 100 03/16/20 01:00 61 15 140/56 (84) 100 03/16/20 00:30 60 15 122/51 (74) 100 03/16/20 00:00 60 16 125/47 (73) 100 03/16/20 00:00 63 03/16/20 00:00 Mechanical Ventilator Mechanical Ventilator 03/15/20 23:30 63 18 139/61 (87) 100 03/15/20 23:00 62 16 137/56 (83) 100 03/15/20 22:55 61 16 35 03/15/20 22:30 61 15 125/47 (73) 100 03/15/20 22:00 62 15 124/57 (79) 100 03/15/20 21:30 64 14 124/85 (98) 100 03/15/20 21:00 63 16 137/97 (110) 100 03/15/20 20:30 65 19 126/48 (74) 100 03/15/20 20:00 99.4 66 19 133/52 (79) 100 03/15/20 20:00 35 03/15/20 20:00 Mechanical Ventilator Mechanical Ventilator 03/15/20 19:38 61 15 35 03/15/20 19:30 61 16 120/48 (72) 100 03/15/20 19:21 61 03/15/20 19:00 62 16 117/45 (69) 100 03/15/20 18:45 64 16 121/48 (72) 100 03/15/20 18:30 64 16 121/47 (71) 100 03/15/20 18:15 63 15 121/46 (71) 100 03/15/20 18:00 62 16 117/47 (70) 100 03/15/20 17:45 62 17 115/47 (69) 100 03/15/20 17:30 61 15 117/49 (71) 100 03/15/20 17:15 63 15 120/48 (72) 100 03/15/20 17:15 63 15 120/48 (72) 100 03/15/20 17:00 64 15 108/44 (65) 100 03/15/20 16:45 65 16 110/45 (66) 100 03/15/20 16:45 65 16 110/45 (66) 100 03/15/20 16:30 66 16 113/46 (68) 100 03/15/20 16:30 66 16 113/46 (68) 100 03/15/20 16:30 66 16 113/46 (68) 100 03/15/20 16:15 71 17 118/51 (73) 100 03/15/20 16:15 71 17 118/51 (73) 100 03/15/20 16:15 71 17 118/51 (73) 100 03/15/20 16:02 130 118/54 03/15/20 16:00 126 03/15/20 16:00 Mechanical Ventilator Mechanical Ventilator 03/15/20 16:00 98.3 130 18 118/54 (75) 100 03/15/20 16:00 98.3 130 18 118/54 (75) 100 03/15/20 16:00 35 03/15/20 16:00 72 18 118/54 (75) 100 03/15/20 15:45 134 17 117/81 (93) 100 03/15/20 15:45 134 17 117/81 (93) 100 03/15/20 15:45 134 17 117/81 (93) 100 03/15/20 15:40 134 21 106/60 (75) 100 03/15/20 15:30 120 17 124/67 (86) 100 03/15/20 15:30 120 17 124/67 (86) 100 03/15/20 15:30 120 17 124/67 (86) 100 03/15/20 15:22 130 25 35 03/15/20 15:00 61 15 127/51 (76) 100 03/15/20 15:00 61 15 127/51 (76) 100 03/15/20 15:00 61 15 127/51 (76) 100 03/15/20 14:36 166/68 03/15/20 14:00 60 15 166/68 (100) 100 03/15/20 14:00 59 15 166/68 (100) 100 03/15/20 14:00 59 15 166/68 (100) 100 03/15/20 13:00 58 14 146/61 (89) 100 03/15/20 13:00 61 14 145/61 (89) 100 03/15/20 13:00 61 14 145/61 (89) 100 03/15/20 13:00 58 14 146/61 (89) 100 Intake and Output 03/15/20 03/16/20 18:59 06:59 Intake Total 1441.1667 ml 1912.5 ml Output Total 1405 ml 685 ml Balance 36.1667 ml 1227.5 ml Intake Free Water 40 ml 260 ml IV Total 1146.1667 ml 992.5 ml Tube Feeding 255 ml 660 ml Output Urine Total 1405 ml 685 ml Laboratory Tests Test 03/16/20 04:00 03/16/20 09:00 White Blood Count 13.1 K/UL (4.8-10.8) H Red Blood Count 3.10 M/UL (4.70-6.10) L Hemoglobin 9.6 G/DL (14.2-18.0) L Hematocrit 28.9 % (42.0-52.0) L Mean Corpuscular Volume 93 FL (80-99) Mean Corpuscular Hemoglobin 30.9 PG (27.0-31.0) Mean Corpuscular Hemoglobin Concent 33.1 G/DL (32.0-36.0) Red Cell Distribution Width 16.5 % (11.6-14.8) H Platelet Count 176 K/UL (150-450) Mean Platelet Volume 9.4 FL (6.5-10.1) Neutrophils (%) (Auto) 84.9 % (45.0-75.0) H Lymphocytes (%) (Auto) 7.5 % (20.0-45.0) L Monocytes (%) (Auto) 6.2 % (1.0-10.0) Eosinophils (%) (Auto) 0.0 % (0.0-3.0) Basophils (%) (Auto) 1.3 % (0.0-2.0) Sodium Level 146 MMOL/L (136-145) H Potassium Level 3.3 MMOL/L (3.5-5.1) L Chloride Level 106 MMOL/L (98-107) Carbon Dioxide Level 36 MMOL/L (21-32) H Anion Gap 4 mmol/L (5-15) L Blood Urea Nitrogen 73 mg/dL (7-18) H Creatinine 1.7 MG/DL (0.55-1.30) H Estimat Glomerular Filtration Rate 38.5 mL/min (>60) Glucose Level 134 MG/DL (74-106) H Uric Acid 6.4 MG/DL (2.6-7.2) Calcium Level 8.7 MG/DL (8.5-10.1) Phosphorus Level 2.7 MG/DL (2.5-4.9) Magnesium Level 2.2 MG/DL (1.8-2.4) Total Bilirubin 1.7 MG/DL (0.2-1.0) H Direct Bilirubin 1.3 MG/DL (0.0-0.3) H Aspartate Amino Transf (AST/SGOT) 1852 U/L (15-37) H Alanine Aminotransferase (ALT/SGPT) 3007 U/L (12-78) H Alkaline Phosphatase 132 U/L (46-116) H Total Protein 6.9 G/DL (6.4-8.2) Albumin 2.1 G/DL (3.4-5.0) L Globulin 4.8 g/dL Albumin/Globulin Ratio 0.4 (1.0-2.7) L Random Vancomycin Level 14.6 ug/mL Hepatitis A IgM Antibody Pending Hepatitis B Surface Antigen Pending Hepatitis B Core IgM Antibody Pending Hepatitis C Antibody Pending Microbiology Date/Time Source Procedure Growth Status 03/13/20 21:41 Rectum VRE Culture - Final Enterococcus Faecalis - Vre Complete 03/13/20 20:25 Straight Cath Urine Culture - Preliminary Gram Negative Huy Resulted 03/13/20 19:40 Blood Blood Culture - Preliminary Gram Negative Huy Resulted 03/13/20 19:37 Nasopharynx SARS-CoV-2 RdRp Gene Assay - Final Complete 03/13/20 19:30 Blood Blood Culture - Preliminary Gram Negative Huy Resulted Objective HEAD AND NECK: No JVD. Status post tracheostomy. LUNGS: Coarse rhonchi. CARDIOVASCULAR: Regular S1 and S2 with no gallop. ABDOMEN: Status post G-tube. EXTREMITIES: 1+ pitting edema. Liang Barry MD Mar 16, 2020 12:23
--- NOTE | 2020-03-16 13:30 | NUR ---
NURSE NOTES: Pt seen by Dr Danielle. Addendum: 03/16/20 at 1841 by Natalia Chapin RN Late entry: Dr Danielle states he will f/u w/ Dr Barry regarding anticoagulation (for AFIB).
--- NOTE | 2020-03-16 13:58 | General Progress Note ---
Subjective Date patient seen: Mar 16, 2020 Time patient seen: 13:00 ROS Limited/Unobtainable: Yes Allergies: Coded Allergies: No Known Allergies (Unverified , 02/11/20) Subjective non verbal Objective Last 24 Hour Vital Signs Date Time Temp Pulse Resp B/P (MAP) Pulse Ox O2 Delivery O2 Flow Rate FiO2 03/16/20 13:00 107 21 118/64 (82) 100 03/16/20 12:30 114 22 113/77 (89) 100 03/16/20 12:21 95 144/86 03/16/20 12:00 99.0 115 22 127/75 (92) 100 03/16/20 12:00 106 03/16/20 11:30 109 21 128/74 (92) 100 03/16/20 11:30 113 23 124/91 (102) 100 03/16/20 11:00 107 21 126/62 (83) 100 03/16/20 11:00 109 21 105/62 (76) 100 03/16/20 10:30 99 18 130/77 (94) 100 03/16/20 10:30 100 20 124/62 (82) 100 03/16/20 10:23 82 20 100 Mechanical Ventilator 35 92 16 35 03/16/20 10:00 100 20 117/65 (82) 100 03/16/20 10:00 100 20 141/97 (112) 100 03/16/20 09:30 116 19 160/93 (115) 99 03/16/20 09:30 103 21 133/75 (94) 100 03/16/20 09:00 87 17 100/63 (75) 100 03/16/20 09:00 98 18 138/64 (88) 100 03/16/20 08:30 91 18 129/63 (85) 100 03/16/20 08:30 92 18 128/61 (83) 100 03/16/20 08:00 98.3 84 18 136/70 (92) 100 03/16/20 08:00 93 19 130/102 (111) 100 03/16/20 08:00 93 19 130/102 (111) 100 03/16/20 08:00 112 03/16/20 07:30 89 18 135/82 (99) 100 03/16/20 07:30 93 18 114/75 (88) 100 03/16/20 07:29 84 17 35 03/16/20 07:00 93 19 130/102 (111) 100 03/16/20 06:30 97 19 125/74 (91) 100 03/16/20 06:00 88 19 133/70 (91) 100 03/16/20 05:30 95 19 137/59 (85) 100 03/16/20 05:00 99 20 131/79 (96) 100 03/16/20 04:30 79 21 133/93 (106) 100 03/16/20 04:00 99.4 85 21 162/87 (112) 100 03/16/20 04:00 Mechanical Ventilator Mechanical Ventilator 03/16/20 04:00 89 03/16/20 03:30 74 16 166/88 (114) 100 03/16/20 03:07 61 16 35 03/16/20 03:00 60 16 133/54 (80) 100 03/16/20 02:30 60 16 120/48 (72) 100 03/16/20 02:00 61 16 133/53 (79) 100 03/16/20 01:30 63 19 130/56 (80) 100 03/16/20 01:00 61 15 140/56 (84) 100 03/16/20 00:30 60 15 122/51 (74) 100 03/16/20 00:00 60 16 125/47 (73) 100 03/16/20 00:00 63 03/16/20 00:00 Mechanical Ventilator Mechanical Ventilator 03/15/20 23:30 63 18 139/61 (87) 100 03/15/20 23:00 62 16 137/56 (83) 100 03/15/20 22:55 61 16 35 03/15/20 22:30 61 15 125/47 (73) 100 03/15/20 22:00 62 15 124/57 (79) 100 03/15/20 21:30 64 14 124/85 (98) 100 03/15/20 21:00 63 16 137/97 (110) 100 03/15/20 20:30 65 19 126/48 (74) 100 03/15/20 20:00 99.4 66 19 133/52 (79) 100 03/15/20 20:00 35 03/15/20 20:00 Mechanical Ventilator Mechanical Ventilator 03/15/20 19:38 61 15 35 03/15/20 19:30 61 16 120/48 (72) 100 03/15/20 19:21 61 03/15/20 19:00 62 16 117/45 (69) 100 03/15/20 18:45 64 16 121/48 (72) 100 03/15/20 18:30 64 16 121/47 (71) 100 03/15/20 18:15 63 15 121/46 (71) 100 03/15/20 18:00 62 16 117/47 (70) 100 03/15/20 17:45 62 17 115/47 (69) 100 03/15/20 17:30 61 15 117/49 (71) 100 03/15/20 17:15 63 15 120/48 (72) 100 03/15/20 17:15 63 15 120/48 (72) 100 03/15/20 17:00 64 15 108/44 (65) 100 03/15/20 16:45 65 16 110/45 (66) 100 03/15/20 16:45 65 16 110/45 (66) 100 03/15/20 16:30 66 16 113/46 (68) 100 03/15/20 16:30 66 16 113/46 (68) 100 03/15/20 16:30 66 16 113/46 (68) 100 03/15/20 16:15 71 17 118/51 (73) 100 03/15/20 16:15 71 17 118/51 (73) 100 03/15/20 16:15 71 17 118/51 (73) 100 03/15/20 16:02 130 118/54 03/15/20 16:00 126 03/15/20 16:00 Mechanical Ventilator Mechanical Ventilator 03/15/20 16:00 98.3 130 18 118/54 (75) 100 03/15/20 16:00 98.3 130 18 118/54 (75) 100 03/15/20 16:00 35 03/15/20 16:00 72 18 118/54 (75) 100 03/15/20 15:45 134 17 117/81 (93) 100 03/15/20 15:45 134 17 117/81 (93) 100 03/15/20 15:45 134 17 117/81 (93) 100 03/15/20 15:40 134 21 106/60 (75) 100 03/15/20 15:30 120 17 124/67 (86) 100 03/15/20 15:30 120 17 124/67 (86) 100 03/15/20 15:30 120 17 124/67 (86) 100 03/15/20 15:22 130 25 35 03/15/20 15:00 61 15 127/51 (76) 100 03/15/20 15:00 61 15 127/51 (76) 100 03/15/20 15:00 61 15 127/51 (76) 100 03/15/20 14:36 166/68 03/15/20 14:00 60 15 166/68 (100) 100 03/15/20 14:00 59 15 166/68 (100) 100 03/15/20 14:00 59 15 166/68 (100) 100 Intake and Output 03/15/20 03/16/20 19:00 07:00 Intake Total 1573.6667 ml 1912.5 ml Output Total 1335 ml 715 ml Balance 238.6667 ml 1197.5 ml Intake Free Water 40 ml 260 ml IV Total 1223.6667 ml 992.5 ml Tube Feeding 310 ml 660 ml Output Urine Total 1335 ml 715 ml Laboratory Tests 03/16/20 04:00: White Blood Count 13.1H, Red Blood Count 3.10L, Hemoglobin 9.6L, Hematocrit 28.9L, Mean Corpuscular Volume 93, Mean Corpuscular Hemoglobin 30.9, Mean Corpuscular Hemoglobin Concent 33.1, Red Cell Distribution Width 16.5H, Platelet Count 176, Mean Platelet Volume 9.4, Neutrophils (%) (Auto) 84.9H, Lymphocytes (%) (Auto) 7.5L, Monocytes (%) (Auto) 6.2, Eosinophils (%) (Auto) 0.0, Basophils (%) (Auto) 1.3, Sodium Level 146H, Potassium Level 3.3L, Chloride Level 106, Carbon Dioxide Level 36H, Anion Gap 4L, Blood Urea Nitrogen 73H, Creatinine 1.7H , Estimat Glomerular Filtration Rate 38.5, Glucose Level 134H, Uric Acid 6.4, Calcium Level 8.7, Phosphorus Level 2.7, Magnesium Level 2.2, Total Bilirubin 1.7H, Direct Bilirubin 1.3H, Aspartate Amino Transf (AST/SGOT) 1852H, Alanine Aminotransferase (ALT/SGPT) 3007H, Alkaline Phosphatase 132H, Total Protein 6.9, Albumin 2.1L, Globulin 4.8, Albumin/Globulin Ratio 0.4L, Random Vancomycin Level 14.6 03/16/20 09:00: Hepatitis A IgM Antibody [Pending], Hepatitis B Surface Antigen [Pending], Hepatitis B Core IgM Antibody [Pending], Hepatitis C Antibody [Pending] Height (Feet): 6 Weight (Pounds): 185 General Appearance: WD/WN EENT: PERRL/EOMI Neck: non-tender, other - trach Cardiovascular: tachycardia Abdomen: other - peg Neurologic: motor weakness Objective CLINICAL HISTORY: ABN LABS TECHNIQUE: Real-time ultrasound of the abdomen with image documentation. COMPARISON: Abdominal ultrasound on 02/17/2020 FINDINGS: Liver: Left liver not visualized. Liver measures 13.0 cm. No focal lesion. Gallbladder: No gallbladder wall thickening or pericholecystic fluid. No definite stones or sludge. Common bile duct: Normal common bile duct measuring 5.2 mm. No stones. No dilation. Pancreas: Pancreas could not be visualized due to presence of bandaging. Kidneys: Right kidney measures 8.3 cm in length. No hydronephrosis or stone. Left kidney measures 10.3 cm in length. No hydronephrosis or stone. Spleen: Spleen measures 8.9 cm. Aorta: Not visualized. Inferior vena cava: Not visualized. Other vasculature: Patent main portal vein with normal direction of flow. Free fluid: No ascites. IMPRESSION: No acute findings in the abdomen. 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 # Bradycardia - Junctional rhythym on admission, resolved. # NSTEMI - Serial troponin with decreasing titter noted. TTE Initial EKG showed junctional bradycardia and prolonged QRS/QT interval concerning for hyperkalemia. Patient's HR of 40 worsened into heart rate in the 20s with subsequent hypotension 12/6. Patient was treated with calcium, magnesium, bicarb at bedside due to concern for hyperkalemia. Atropine and Epi given in the ER. Dopamine gtt titration started in the ED. Cardiology consultation requested with Dr. Barry and telemetry showed Atrial Fibrillation with RVR 03/15/20. Diltiazem gtt started and now adjusted to Cadizem 60 mg q 6 hr, GT #Sepsis consistent with ventilator associated pneumonia. Tracheostomy is in place Broad sp antibiotic started and WBC improving and less than 20K now GNR in all blood culture bottles noted today. ID consultation requested with Dr Hines. Vancomycin stopped. Continue Zosyn therapy. Continue supportive care Follow up culture sensitivities showed GNR in all bottles. # Hyperkalemia Treated medically. K down to 6.1 from 6.3 Renal consulation requested with Dr. Laguerre Today K 3.3 and repleted. # History of L renal mass by US 02/17/20 # NIURKA on CKD Creatinine decreasing and possibly due to severe urinary retention which was relieved in the ED after aggarwal insertion. Monitor I/O's Renal consultation appreciated. #Elevated LFT's and prior history of cirrhosis # Shock liver due to hypotension Trend LFT's Consider GI consultation if persistent LFT elevation # History of CVA and hemiplegia with PEG and trach Consider MRI brain for possible anoxic brain injury in the setting of hypotension - i will change to CT head as now family confirmed the patient baseline was similar to the current state neurologically. Neurology consultation for follow up and prognosis. I discussed with family and they reported that the patient is full care trach/peg since original CVA, he is NOT ambulatory and non verbal which is his current state now. Line Central line Diet Tube feeds. DVT ppx GI ppx FULL CODE Family was called 03/15 and they are hopeful that the patient will return to his prior baseline. I updated the daughter about cardiac, renal, lung, liver current status and high complexity and morbidity mortality for the patient. [facility] discussion follow up will be needed pending on clinical progress. Va Danielle MD Mar 16, 2020 13:58
--- NOTE | 2020-03-16 14:00 | NUR ---
NURSE NOTES: Pt repositioned. Cardizem gtt stopped at this time. Remains in AFIB with rate below 105 bpm. Normotensive. No acute distress noted.' Will continue to monitor.
--- NOTE | 2020-03-16 16:00 | NUR ---
NURSE NOTES: Pt cleaned and repositioned. PO care provided. Axillary temp 99.1 F. No distress noted. Remains in AFIB w/ rate of 103-105 bpm.
--- NOTE | 2020-03-16 16:01 | Nephrology Progress Note ---
Assessment/Plan Problem List: (1) NIURKA (acute kidney injury) (2) Renal failure (ARF), acute on chronic (3) HTN (hypertension) (4) Sepsis (5) Elevated LFTs Assessment Acute renal failure secondary to urinary outlet obstruction Electrolyte abnormalities, hyperkalemia Chronic respiratory failure trach and vent dependent History of atrial fibrillation PEG Anemia Patient presented with low blood pressure and shock liver Plan March 16: Renal parameters improved. Abnormal electrolytes addressed. Blood pressure controlled. Continue per current management. March 15: Hydrate and change IV to D5W. Add Norvasc for high blood pressure. Continue to monitor renal parameters and electrolytes. Can start GT feeding. Discussed with RN. March 14: Hydrate As needed hydralazine for high or high blood pressure Monitor electrolyte renal parameters Treatment of underlying sepsis Per orders Subjective ROS Limited/Unobtainable: Yes Objective Objective Last 24 Hour Vital Signs Date Time Temp Pulse Resp B/P (MAP) Pulse Ox O2 Delivery O2 Flow Rate FiO2 03/16/20 15:29 86 20 35 03/16/20 15:00 89 19 119/67 (84) 100 03/16/20 14:30 98 20 116/76 (89) 100 03/16/20 14:00 95 20 123/69 (87) 100 03/16/20 13:30 94 20 122/58 (79) 100 03/16/20 13:00 107 21 118/64 (82) 100 03/16/20 12:30 114 22 113/77 (89) 100 03/16/20 12:21 95 144/86 03/16/20 12:00 Mechanical Ventilator Mechanical Ventilator 03/16/20 12:00 99.0 115 22 127/75 (92) 100 03/16/20 12:00 106 03/16/20 11:30 109 21 128/74 (92) 100 03/16/20 11:30 113 23 124/91 (102) 100 03/16/20 11:00 107 21 126/62 (83) 100 03/16/20 11:00 109 21 105/62 (76) 100 03/16/20 10:30 99 18 130/77 (94) 100 03/16/20 10:30 100 20 124/62 (82) 100 03/16/20 10:23 82 20 100 Mechanical Ventilator 35 92 16 35 03/16/20 10:00 100 20 117/65 (82) 100 03/16/20 10:00 100 20 141/97 (112) 100 03/16/20 09:30 116 19 160/93 (115) 99 03/16/20 09:30 103 21 133/75 (94) 100 03/16/20 09:00 87 17 100/63 (75) 100 03/16/20 09:00 98 18 138/64 (88) 100 03/16/20 08:30 91 18 129/63 (85) 100 03/16/20 08:30 92 18 128/61 (83) 100 03/16/20 08:00 98.3 84 18 136/70 (92) 100 03/16/20 08:00 Mechanical Ventilator Mechanical Ventilator 03/16/20 08:00 93 19 130/102 (111) 100 03/16/20 08:00 93 19 130/102 (111) 100 03/16/20 08:00 112 03/16/20 07:30 89 18 135/82 (99) 100 03/16/20 07:30 93 18 114/75 (88) 100 03/16/20 07:29 84 17 35 03/16/20 07:00 93 19 130/102 (111) 100 03/16/20 06:30 97 19 125/74 (91) 100 03/16/20 06:00 88 19 133/70 (91) 100 03/16/20 05:30 95 19 137/59 (85) 100 03/16/20 05:00 99 20 131/79 (96) 100 03/16/20 04:30 79 21 133/93 (106) 100 03/16/20 04:00 99.4 85 21 162/87 (112) 100 03/16/20 04:00 Mechanical Ventilator Mechanical Ventilator 03/16/20 04:00 89 03/16/20 03:30 74 16 166/88 (114) 100 03/16/20 03:07 61 16 35 03/16/20 03:00 60 16 133/54 (80) 100 03/16/20 02:30 60 16 120/48 (72) 100 03/16/20 02:00 61 16 133/53 (79) 100 03/16/20 01:30 63 19 130/56 (80) 100 03/16/20 01:00 61 15 140/56 (84) 100 03/16/20 00:30 60 15 122/51 (74) 100 03/16/20 00:00 60 16 125/47 (73) 100 03/16/20 00:00 63 03/16/20 00:00 Mechanical Ventilator Mechanical Ventilator 03/15/20 23:30 63 18 139/61 (87) 100 03/15/20 23:00 62 16 137/56 (83) 100 03/15/20 22:55 61 16 35 03/15/20 22:30 61 15 125/47 (73) 100 03/15/20 22:00 62 15 124/57 (79) 100 03/15/20 21:30 64 14 124/85 (98) 100 03/15/20 21:00 63 16 137/97 (110) 100 03/15/20 20:30 65 19 126/48 (74) 100 03/15/20 20:00 99.4 66 19 133/52 (79) 100 03/15/20 20:00 35 03/15/20 20:00 Mechanical Ventilator Mechanical Ventilator 03/15/20 19:38 61 15 35 03/15/20 19:30 61 16 120/48 (72) 100 03/15/20 19:21 61 03/15/20 19:00 62 16 117/45 (69) 100 03/15/20 18:45 64 16 121/48 (72) 100 03/15/20 18:30 64 16 121/47 (71) 100 03/15/20 18:15 63 15 121/46 (71) 100 03/15/20 18:00 62 16 117/47 (70) 100 03/15/20 17:45 62 17 115/47 (69) 100 03/15/20 17:30 61 15 117/49 (71) 100 03/15/20 17:15 63 15 120/48 (72) 100 03/15/20 17:15 63 15 120/48 (72) 100 03/15/20 17:00 64 15 108/44 (65) 100 03/15/20 16:45 65 16 110/45 (66) 100 03/15/20 16:45 65 16 110/45 (66) 100 03/15/20 16:30 66 16 113/46 (68) 100 03/15/20 16:30 66 16 113/46 (68) 100 03/15/20 16:30 66 16 113/46 (68) 100 03/15/20 16:15 71 17 118/51 (73) 100 03/15/20 16:15 71 17 118/51 (73) 100 03/15/20 16:15 71 17 118/51 (73) 100 03/15/20 16:02 130 118/54 03/15/20 16:00 126 03/15/20 16:00 Mechanical Ventilator Mechanical Ventilator 03/15/20 16:00 98.3 130 18 118/54 (75) 100 03/15/20 16:00 98.3 130 18 118/54 (75) 100 03/15/20 16:00 35 03/15/20 16:00 72 18 118/54 (75) 100 Intake and Output 03/15/20 03/16/20 19:00 07:00 Intake Total 1573.6667 ml 1912.5 ml Output Total 1335 ml 715 ml Balance 238.6667 ml 1197.5 ml Intake Free Water 40 ml 260 ml IV Total 1223.6667 ml 992.5 ml Tube Feeding 310 ml 660 ml Output Urine Total 1335 ml 715 ml Current Medications Medications (Trade) Dose Ordered Sig/Natalia Route PRN Reason Start Time Stop Time Status Last Admin Dose Admin Acetaminophen (Tylenol) 650 mg Q4H PRN ORAL FEVER 03/13/20 22:45 04/12/20 22:44 Acetaminophen (Tylenol) 650 mg Q4H PRN ORAL Mild Pain (Pain Scale 1-3) 03/13/20 22:45 04/12/20 22:44 Albuterol/ Ipratropium (Albuterol/ Ipratropium) 3 ml Q6H PRN HHN Shortness of Breath 03/13/20 22:45 03/18/20 22:44 03/16/20 10:23 Bisacodyl (Dulcolax) 10 mg DAILYPRN PRN RECTAL Constipation 03/13/20 22:45 06/11/20 22:44 Chlorhexidine Gluconate (Shirley-Hex 2%) 1 applic DAILY@1999 TOPIC 03/15/20 20:00 06/13/20 19:59 03/15/20 20:30 Clonidine HCl (Catapres Tab) 0.1 mg Q2H PRN ORAL For High Blood Pressure 03/16/20 11:30 06/14/20 11:29 Dextrose 1,000 ml @ 75 mls/hr [id number] IV 03/15/20 10:30 04/14/20 10:29 03/16/20 01:00 Dextrose (Dextrose 50%) 25 ml Q30M PRN IV Hypoglycemia 03/13/20 22:45 06/11/20 22:44 Dextrose (Dextrose 50%) 50 ml Q30M PRN IV Hypoglycemia 03/13/20 22:45 06/11/20 22:44 Diltiazem HCl (Cardizem Tab) 60 mg EVERY 6 HOURS ORAL 03/16/20 12:00 04/15/20 11:59 03/16/20 12:21 Docusate Sodium (Colace) 100 mg Q12HR ORAL 03/15/20 10:00 04/14/20 09:59 03/16/20 09:14 Enalaprilat (Vasotec) 1.25 mg Q3H PRN IV For High Blood Pressure 03/16/20 11:30 04/15/20 11:29 Heparin Sodium (Porcine) (Heparin 5000 units/ml) 5,000 units EVERY 12 HOURS SUBQ 03/14/20 09:00 04/28/20 08:59 03/16/20 09:14 Morphine Sulfate (Morphine Sulfate) 2 mg Q3H PRN IVP Moderate Pain (Pain Scale 4-6) 03/13/20 22:45 03/20/20 22:44 Morphine Sulfate (Morphine Sulfate) 4 mg Q3H PRN IVP Severe Pain (Pain Scale 7-10) 03/13/20 22:45 03/20/20 22:44 03/15/20 20:31 Ondansetron HCl (Zofran) 4 mg Q6H PRN IVP Nausea & Vomiting 03/13/20 22:45 04/12/20 22:44 Pantoprazole (Protonix) 40 mg Q12HR IV 03/14/20 21:00 04/13/20 08:59 03/16/20 09:14 Piperacillin Sod/ Tazobactam Sod 3.375 gm/Dextrose 110 ml @ 27.5 mls/hr EVERY 8 HOURS IV 03/14/20 14:00 03/21/20 05:59 03/16/20 14:09 Laboratory Tests 03/16/20 04:00: White Blood Count 13.1H, Red Blood Count 3.10L, Hemoglobin 9.6L, Hematocrit 2 8.9L, Mean Corpuscular Volume 93, Mean Corpuscular Hemoglobin 30.9, Mean Corpuscular Hemoglobin Concent 33.1, Red Cell Distribution Width 16.5H, Platelet Count 176, Mean Platelet Volume 9.4, Neutrophils (%) (Auto) 84.9H, Lymphocytes (%) (Auto) 7.5L, Monocytes (%) (Auto) 6.2, Eosinophils (%) (Auto) 0.0, Basophils (%) (Auto) 1.3, Sodium Level 146H, Potassium Level 3.3L, Chloride Level 106, Carbon Dioxide Level 36H, Anion Gap 4L, Blood Urea Nitrogen 73H, Creatinine 1.7H , Estimat Glomerular Filtration Rate 38.5, Glucose Level 134H, Uric Acid 6.4, Calcium Level 8.7, Phosphorus Level 2.7, Magnesium Level 2.2, Total Bilirubin 1.7H, Direct Bilirubin 1.3H, Aspartate Amino Transf (AST/SGOT) 1852H, Alanine Aminotransferase (ALT/SGPT) 3007H, Alkaline Phosphatase 132H, Total Protein 6.9, Albumin 2.1L, Globulin 4.8, Albumin/Globulin Ratio 0.4L, Random Vancomycin Level 14.6 03/16/20 09:00: Hepatitis A IgM Antibody [Pending], Hepatitis B Surface Antigen [Pending], Hepatitis B Core IgM Antibody [Pending], Hepatitis C Antibody [Pending] Height (Feet): 6 Weight (Pounds): 185 General Appearance: no apparent distress EENT: other - Vented through trach Cardiovascular: tachycardia Respiratory/Chest: decreased breath sounds Abdomen: distended Tano Longoria MD Mar 16, 2020 16:01
--- NOTE | 2020-03-16 16:33 | Pulmonology Progress Note ---
Subjective ROS Limited/Unobtainable: Yes Interval Events: None new reported Constitutional: Reports: no symptoms HEENT: Repors: no symptoms Respiratory: Reports: no symptoms Cardiovascular: Reports: no symptoms Gastrointestinal/Abdominal: Reports: no symptoms Genitourinary: Reports: no symptoms Allergies: Coded Allergies: No Known Allergies (Unverified , 02/11/20) All Systems: reviewed and negative except above Objective Last 24 Hour Vital Signs Date Time Temp Pulse Resp B/P (MAP) Pulse Ox O2 Delivery O2 Flow Rate FiO2 03/16/20 16:00 Mechanical Ventilator Mechanical Ventilator 03/16/20 16:00 99.1 03/16/20 16:00 96 03/16/20 16:00 100 17 126/66 (86) 100 03/16/20 15:29 86 20 35 03/16/20 15:00 89 19 119/67 (84) 100 03/16/20 14:30 98 20 116/76 (89) 100 03/16/20 14:00 95 20 123/69 (87) 100 03/16/20 13:30 94 20 122/58 (79) 100 03/16/20 13:00 107 21 118/64 (82) 100 03/16/20 12:30 114 22 113/77 (89) 100 03/16/20 12:21 95 144/86 03/16/20 12:00 Mechanical Ventilator Mechanical Ventilator 03/16/20 12:00 99.0 115 22 127/75 (92) 100 03/16/20 12:00 106 03/16/20 11:30 109 21 128/74 (92) 100 03/16/20 11:30 113 23 124/91 (102) 100 03/16/20 11:00 107 21 126/62 (83) 100 03/16/20 11:00 109 21 105/62 (76) 100 03/16/20 10:30 99 18 130/77 (94) 100 03/16/20 10:30 100 20 124/62 (82) 100 03/16/20 10:23 82 20 100 Mechanical Ventilator 35 92 16 35 03/16/20 10:00 100 20 117/65 (82) 100 03/16/20 10:00 100 20 141/97 (112) 100 03/16/20 09:30 116 19 160/93 (115) 99 03/16/20 09:30 103 21 133/75 (94) 100 03/16/20 09:00 87 17 100/63 (75) 100 03/16/20 09:00 98 18 138/64 (88) 100 03/16/20 08:30 91 18 129/63 (85) 100 03/16/20 08:30 92 18 128/61 (83) 100 03/16/20 08:00 98.3 84 18 136/70 (92) 100 03/16/20 08:00 Mechanical Ventilator Mechanical Ventilator 03/16/20 08:00 93 19 130/102 (111) 100 03/16/20 08:00 93 19 130/102 (111) 100 03/16/20 08:00 112 03/16/20 07:30 89 18 135/82 (99) 100 03/16/20 07:30 93 18 114/75 (88) 100 03/16/20 07:29 84 17 35 03/16/20 07:00 93 19 130/102 (111) 100 03/16/20 06:30 97 19 125/74 (91) 100 03/16/20 06:00 88 19 133/70 (91) 100 03/16/20 05:30 95 19 137/59 (85) 100 03/16/20 05:00 99 20 131/79 (96) 100 03/16/20 04:30 79 21 133/93 (106) 100 03/16/20 04:00 99.4 85 21 162/87 (112) 100 03/16/20 04:00 Mechanical Ventilator Mechanical Ventilator 03/16/20 04:00 89 03/16/20 03:30 74 16 166/88 (114) 100 03/16/20 03:07 61 16 35 03/16/20 03:00 60 16 133/54 (80) 100 03/16/20 02:30 60 16 120/48 (72) 100 03/16/20 02:00 61 16 133/53 (79) 100 03/16/20 01:30 63 19 130/56 (80) 100 03/16/20 01:00 61 15 140/56 (84) 100 03/16/20 00:30 60 15 122/51 (74) 100 03/16/20 00:00 60 16 125/47 (73) 100 03/16/20 00:00 63 03/16/20 00:00 Mechanical Ventilator Mechanical Ventilator 03/15/20 23:30 63 18 139/61 (87) 100 03/15/20 23:00 62 16 137/56 (83) 100 03/15/20 22:55 61 16 35 03/15/20 22:30 61 15 125/47 (73) 100 03/15/20 22:00 62 15 124/57 (79) 100 03/15/20 21:30 64 14 124/85 (98) 100 03/15/20 21:00 63 16 137/97 (110) 100 03/15/20 20:30 65 19 126/48 (74) 100 03/15/20 20:00 99.4 66 19 133/52 (79) 100 03/15/20 20:00 35 03/15/20 20:00 Mechanical Ventilator Mechanical Ventilator 03/15/20 19:38 61 15 35 03/15/20 19:30 61 16 120/48 (72) 100 03/15/20 19:21 61 03/15/20 19:00 62 16 117/45 (69) 100 03/15/20 18:45 64 16 121/48 (72) 100 03/15/20 18:30 64 16 121/47 (71) 100 03/15/20 18:15 63 15 121/46 (71) 100 03/15/20 18:00 62 16 117/47 (70) 100 03/15/20 17:45 62 17 115/47 (69) 100 03/15/20 17:30 61 15 117/49 (71) 100 03/15/20 17:15 63 15 120/48 (72) 100 03/15/20 17:15 63 15 120/48 (72) 100 03/15/20 17:00 64 15 108/44 (65) 100 03/15/20 16:45 65 16 110/45 (66) 100 03/15/20 16:45 65 16 110/45 (66) 100 Intake and Output 03/15/20 03/16/20 19:00 07:00 Intake Total 1573.6667 ml 1912.5 ml Output Total 1335 ml 715 ml Balance 238.6667 ml 1197.5 ml Intake Free Water 40 ml 260 ml IV Total 1223.6667 ml 992.5 ml Tube Feeding 310 ml 660 ml Output Urine Total 1335 ml 715 ml General Appearance: no acute distress HEENT: normocephalic, mucous membranes moist, status post trach Respiratory: chest wall non-tender Cardiovascular: normal peripheral pulses, normal rate Abdomen: normal bowel sounds Microbiology Date/Time Source Procedure Growth Status 03/15/20 12:45 Sputum Gram Stain - Final Resulted 03/15/20 12:45 Sputum Sputum Culture Pending Resulted 03/13/20 21:41 Rectum VRE Culture - Final Enterococcus Faecalis - Vre Complete 03/13/20 20:25 Straight Cath Urine Culture - Preliminary Gram Negative Huy Resulted 03/13/20 19:40 Blood Blood Culture - Preliminary Gram Negative Huy Resulted 03/13/20 19:37 Nasopharynx SARS-CoV-2 RdRp Gene Assay - Final Complete 03/13/20 19:30 Blood Blood Culture - Preliminary Gram Negative Huy Resulted Laboratory Tests 03/16/20 04:00: White Blood Count 13.1H, Red Blood Count 3.10L, Hemoglobin 9.6L, Hematocrit 28.9L, Mean Corpuscular Volume 93, Mean Corpuscular Hemoglobin 30.9, Mean Corpuscular Hemoglobin Concent 33.1, Red Cell Distribution Width 16.5H, Platelet Count 176, Mean Platelet Volume 9.4, Neutrophils (%) (Auto) 84.9H, Lymphocytes (%) (Auto) 7.5L, Monocytes (%) (Auto) 6.2, Eosinophils (%) (Auto) 0.0, Basophils (%) (Auto) 1.3, Sodium Level 146H, Potassium Level 3.3L, Chloride Level 106, Carbon Dioxide Level 36H, Anion Gap 4L, Blood Urea Nitrogen 73H, Creatinine 1.7H , Estimat Glomerular Filtration Rate 38.5, Glucose Level 134H, Uric Acid 6.4, Calcium Level 8.7, Phosphorus Level 2.7, Magnesium Level 2.2, Total Bilirubin 1.7H, Direct Bilirubin 1.3H, Aspartate Amino Transf (AST/SGOT) 1852H, Alanine Aminotransferase (ALT/SGPT) 3007H, Alkaline Phosphatase 132H, Total Protein 6.9, Albumin 2.1L, Globulin 4.8, Albumin/Globulin Ratio 0.4L, Random Vancomycin Level 14.6 03/16/20 09:00: Hepatitis A IgM Antibody [Pending], Hepatitis B Surface Antigen [Pending], Hepatitis B Core IgM Antibody [Pending], Hepatitis C Antibody [Pending] Current Medications Medications (Trade) Dose Ordered Sig/Natalia Route PRN Reason Start Time Stop Time Status Last Admin Dose Admin Acetaminophen (Tylenol) 650 mg Q4H PRN ORAL FEVER 03/13/20 22:45 04/12/20 22:44 Acetaminophen (Tylenol) 650 mg Q4H PRN ORAL Mild Pain (Pain Scale 1-3) 03/13/20 22:45 04/12/20 22:44 Albuterol/ Ipratropium (Albuterol/ Ipratropium) 3 ml Q6H PRN HHN Shortness of Breath 03/13/20 22:45 03/18/20 22:44 03/16/20 10:23 Bisacodyl (Dulcolax) 10 mg DAILYPRN PRN RECTAL Constipation 03/13/20 22:45 06/11/20 22:44 Chlorhexidine Gluconate (Shirley-Hex 2%) 1 applic DAILY@2000 TOPIC 03/15/20 20:00 06/13/20 19:59 03/15/20 20:30 Clonidine HCl (Catapres Tab) 0.1 mg Q2H PRN ORAL For High Blood Pressure 03/16/20 11:30 06/14/20 11:29 Dextrose 1,000 ml @ 75 mls/hr [id number] IV 03/15/20 10:30 04/14/20 10:29 03/16/20 01:00 Dextrose (Dextrose 50%) 25 ml Q30M PRN IV Hypoglycemia 03/13/20 22:45 06/11/20 22:44 Dextrose (Dextrose 50%) 50 ml Q30M PRN IV Hypoglycemia 03/13/20 22:45 06/11/20 22:44 Diltiazem HCl (Cardizem Tab) 60 mg EVERY 6 HOURS ORAL 03/16/20 12:00 04/15/20 11:59 03/16/20 12:21 Docusate Sodium (Colace) 100 mg Q12HR ORAL 03/15/20 10:00 04/14/20 09:59 03/16/20 09:14 Enalaprilat (Vasotec) 1.25 mg Q3H PRN IV For High Blood Pressure 03/16/20 11:30 1/7/21 11:29 Heparin Sodium (Porcine) (Heparin 5000 units/ml) 5,000 units EVERY 12 HOURS SUBQ 03/14/20 09:00 04/28/20 08:59 03/16/20 09:14 Morphine Sulfate (Morphine Sulfate) 2 mg Q3H PRN IVP Moderate Pain (Pain Scale 4-6) 03/13/20 22:45 03/20/20 22:44 Morphine Sulfate (Morphine Sulfate) 4 mg Q3H PRN IVP Severe Pain (Pain Scale 7-10) 03/13/20 22:45 03/20/20 22:44 03/15/20 20:31 Ondansetron HCl (Zofran) 4 mg Q6H PRN IVP Nausea & Vomiting 03/13/20 22:45 04/12/20 22:44 Pantoprazole (Protonix) 40 mg Q12HR IV 03/14/20 21:00 04/13/20 08:59 03/16/20 09:14 Piperacillin Sod/ Tazobactam Sod 3.375 gm/Dextrose 110 ml @ 27.5 mls/hr EVERY 8 HOURS IV 03/14/20 14:00 03/21/20 05:59 03/16/20 14:09 Assessment/Plan Assessment/Plan IMPRESSION: 1. Worsening pulmonary infiltrates. 2. Pneumonia, healthcare associated. 3. Bacteremia with gram-negative rods. 4. UTI with gram-negative rods. 5. Negative COVID-19 rapid gene assay. 6. Chronic respiratory failure. 7. Seizure disorder. 8. Liver cirrhosis. 9. Paroxysmal atrial fibrillation. DISCUSSION: Agree with current medications and care. I will continue assist-control mechanical ventilation. ABG is adequate. I will decrease FiO2 as tolerated. I will follow as elastic attacher coverstitch. Discussed with Dr. Danielle. Kandy Golden Omar Syed MD Mar 16, 2020 16:33
[2020-03-16] MEDS: dilTIAZem HCl 60mg tab GT SCH ×2 (17:55→23:12)
--- NOTE | 2020-03-16 18:00 | NUR ---
NURSE NOTES: Pt cleaned and repositioned. No distress noted. Remains in AFIB w/ rate 105-110 bpm. cardizem gtt remains off.
--- NOTE | 2020-03-16 19:00 | NUR ---
RESPIRATORY NOTE: Received pt on AC VC 14, 500VT, 35%, PEEP +5. Pt is trach-dependent w/ a Cuffed, Portex 7 tube. Pt asleep/disoriented. B/S niko. rhonchi, sxn small amounts of thick, pale-yellow secretions. Vent plugged into red outlet, ambubag at bedside. Pt in no apparent distress at this time. Will continue to monitor pt.
--- NOTE | 2020-03-16 19:20 | NUR ---
NURSE NOTES: Received patient from Natalia ALCARAZ. Patient is in bed, obtunded, opens eyes. Sinus rhythm on the monitor. Trach to vent AC 14 TV 500 FiO2 35% PEEP 5, tolerating well. Gtube and tube feeding running glucerna 1.5 @55ml/hr, tolerating well. Johnson is in place and draining well to gravity. Bilateral edema on upper extremities. Bed to lowest position and locked, Call light within easy reach. Will continue plan of care.
--- NOTE | 2020-03-16 19:45 | NUR ---
NURSE HAND-OFF REPORT: Latest Vital Signs: Temperature 99.1 , Pulse 94 , B/P 131 /63 , Respiratory Rate 20 , O2 SAT 100 , Mechanical Ventilator, FiO2 35% . Vital Sign Comment: stable (remains in AFIB with controlled rate 90-105 bpm) EKG Rhythm: Atrial Fibrillation Rhythm change?: Y MD Notified?: Pt seen by Dr Barry today (Dr Danielle to f/u w/ Dr Barry regarding further anticoagulation order) MD Response: pt transitioned to GT cardizem Latest Wall Fall Score: 75 Fall Risk: High Risk Safety Measures: Call light Within Reach, Bed Alarm Zone 3, Side Rails Side Rails x3, Bed position Low and Locked. Fall Precautions: Yellow Socks Yellow Gown Door Sign Patient Fall Education Report given to LISSA Jacobs. Endorsed to f/u w/ Dr Ramos tomorrow to clear for transfer out of ICU if pt remains stable overnight off cardizem gtt
[2020-03-16] MEDS: Dyna-Hex 2% Top Sol 2oz TOPIC SCH (20:09)
--- NOTE | 2020-03-16 20:45 | Electroencephalogram ---
DATE OF PROCEDURE: 03/15/2020 REQUESTING PHYSICIAN: Winston Brown MD. READING PHYSICIAN: Pavel Cervantes MD. DATE OF TRACIN03/15/2020. HISTORY: This EEG was performed on an 85-year-old gentleman with a history of cerebrovascular disease with prior stroke, who was observed to have an alteration in his mental state. The purpose of this EEG was to evaluate the patient for the degree and type of cerebral dysfunction and to exclude ongoing ictal or interictal phenomena. TECHNICAL NOTE: This EEG was performed on a [employer] with electrodes placed on the scalp according to the international 10-20 system. [id number] and [id number] montages were used. The EEG was technically satisfactory and was performed while the patient was in a poorly responsive state. OBSERVATIONS: In the poorly responsive state, the background activity consisted of 5 to 6 hertz theta activity over the left hemisphere and 4 to 5 hertz theta with 2 to 2.5 hertz delta activity over the right hemisphere. No definite epileptiform discharges were seen. IMPRESSION: This is an abnormal EEG characterized by 1. Slowing of the background in the 5 to 6 hertz theta range over the left hemisphere. 2. Slowing of the background in the 4 to 5 hertz theta and 2 to 2.5 hertz delta range over the right hemisphere. COMMENT: The study is consistent with: 1. An encephalopathy of a moderate degree. 2. Right greater than left hemispheric dysfunction. Clinical correlation is recommended. Pavel Cervantes M.D. DR: VÍCTOR JOB#: [id number] CC:
--- NOTE | 2020-03-16 22:00 | NUR ---
NURSE NOTES: patient is in bed without any acute distress. Started Zosyn @27.5ml/hr. No bowel movement. Afib on the monitor HR 100-110. No bowel movement. aggarwal draining well.
--- NOTE | 2020-03-16 22:39 | General Progress Note ---
Subjective Allergies: Coded Allergies: No Known Allergies (Unverified , 02/11/20) Objective Last 24 Hour Vital Signs Date Time Temp Pulse Resp B/P (MAP) Pulse Ox O2 Delivery O2 Flow Rate FiO2 03/16/20 22:00 103 17 122/75 (91) 100 03/16/20 21:00 98 17 142/98 (113) 100 03/16/20 20:00 111 03/16/20 20:00 98.6 97 18 126/67 (86) 100 03/16/20 20:00 Mechanical Ventilator Mechanical Ventilator 03/16/20 19:00 94 20 131/63 (85) 100 03/16/20 18:57 109 17 35 03/16/20 18:00 109 22 122/78 (93) 100 03/16/20 17:55 103 137/74 03/16/20 17:00 98 17 132/76 (94) 100 03/16/20 16:00 Mechanical Ventilator Mechanical Ventilator 03/16/20 16:00 99.1 03/16/20 16:00 35 03/16/20 16:00 96 03/16/20 16:00 100 17 126/66 (86) 100 03/16/20 15:29 86 20 35 03/16/20 15:00 89 19 119/67 (84) 100 03/16/20 14:30 98 20 116/76 (89) 100 03/16/20 14:00 95 20 123/69 (87) 100 03/16/20 13:30 94 20 122/58 (79) 100 03/16/20 13:00 107 21 118/64 (82) 100 03/16/20 12:30 114 22 113/77 (89) 100 03/16/20 12:21 95 144/86 03/16/20 12:00 Mechanical Ventilator Mechanical Ventilator 03/16/20 12:00 35 03/16/20 12:00 99.0 115 22 127/75 (92) 100 03/16/20 12:00 106 03/16/20 11:30 109 21 128/74 (92) 100 03/16/20 11:30 113 23 124/91 (102) 100 03/16/20 11:00 107 21 126/62 (83) 100 03/16/20 11:00 109 21 105/62 (76) 100 12/8/20 10:30 99 18 130/77 (94) 100 03/16/20 10:30 100 20 124/62 (82) 100 03/16/20 10:23 82 20 100 Mechanical Ventilator 35 92 16 35 03/16/20 10:00 100 20 117/65 (82) 100 03/16/20 10:00 100 20 141/97 (112) 100 03/16/20 09:30 116 19 160/93 (115) 99 03/16/20 09:30 103 21 133/75 (94) 100 03/16/20 09:00 87 17 100/63 (75) 100 03/16/20 09:00 98 18 138/64 (88) 100 03/16/20 08:30 91 18 129/63 (85) 100 03/16/20 08:30 92 18 128/61 (83) 100 03/16/20 08:00 98.3 84 18 136/70 (92) 100 03/16/20 08:00 Mechanical Ventilator Mechanical Ventilator 03/16/20 08:00 35 03/16/20 08:00 93 19 130/102 (111) 100 03/16/20 08:00 93 19 130/102 (111) 100 03/16/20 08:00 112 03/16/20 07:30 89 18 135/82 (99) 100 03/16/20 07:30 93 18 114/75 (88) 100 03/16/20 07:29 84 17 35 03/16/20 07:00 93 19 130/102 (111) 100 03/16/20 06:30 97 19 125/74 (91) 100 03/16/20 06:00 88 19 133/70 (91) 100 03/16/20 05:30 95 19 137/59 (85) 100 03/16/20 05:00 99 20 131/79 (96) 100 03/16/20 04:30 79 21 133/93 (106) 100 03/16/20 04:00 99.4 85 21 162/87 (112) 100 03/16/20 04:00 Mechanical Ventilator Mechanical Ventilator 03/16/20 04:00 89 03/16/20 03:30 74 16 166/88 (114) 100 03/16/20 03:07 61 16 35 03/16/20 03:00 60 16 133/54 (80) 100 03/16/20 02:30 60 16 120/48 (72) 100 03/16/20 02:00 61 16 133/53 (79) 100 03/16/20 01:30 63 19 130/56 (80) 100 03/16/20 01:00 61 15 140/56 (84) 100 03/16/20 00:30 60 15 122/51 (74) 100 03/16/20 00:00 60 16 125/47 (73) 100 03/16/20 00:00 63 03/16/20 00:00 Mechanical Ventilator Mechanical Ventilator 03/15/20 23:30 63 18 139/61 (87) 100 03/15/20 23:00 62 16 137/56 (83) 100 03/15/20 22:55 61 16 35 Intake and Output 03/15/20 03/16/20 19:00 07:00 Intake Total 1573.6667 ml 1912.5 ml Output Total 1335 ml 715 ml Balance 238.6667 ml 1197.5 ml Intake Free Water 40 ml 260 ml IV Total 1223.6667 ml 992.5 ml Tube Feeding 310 ml 660 ml Output Urine Total 1335 ml 715 ml Laboratory Tests 03/16/20 04:00: White Blood Count 13.1H, Red Blood Count 3.10L, Hemoglobin 9.6L, Hematocrit 28.9L, Mean Corpuscular Volume 93, Mean Corpuscular Hemoglobin 30.9, Mean Corpuscular Hemoglobin Concent 33.1, Red Cell Distribution Width 16.5H, Platelet Count 176, Mean Platelet Volume 9.4, Neutrophils (%) (Auto) 84.9H, Lymphocytes (%) (Auto) 7.5L, Monocytes (%) (Auto) 6.2, Eosinophils (%) (Auto) 0.0, Basophils (%) (Auto) 1.3, Sodium Level 146H, Potassium Level 3.3L, Chloride Level 106, Carbon Dioxide Level 36H, Anion Gap 4L, Blood Urea Nitrogen 73H, Creatinine 1.7H , Estimat Glomerular Filtration Rate 38.5, Glucose Level 134H, Uric Acid 6.4, Calcium Level 8.7, Phosphorus Level 2.7, Magnesium Level 2.2, Total Bilirubin 1.7H, Direct Bilirubin 1.3H, Aspartate Amino Transf (AST/SGOT) 1852H, Alanine Aminotransferase (ALT/SGPT) 3007H, Alkaline Phosphatase 132H, Total Protein 6.9, Albumin 2.1L, Globulin 4.8, Albumin/Globulin Ratio 0.4L, Random Vancomycin Level 14.6 03/16/20 09:00: Hepatitis A IgM Antibody [Pending], Hepatitis B Surface Antigen [Pending], Hepatitis B Core IgM Antibody [Pending], Hepatitis C Antibody [Pending] Height (Feet): 6 Weight (Pounds): 185 Assessment/Plan Status: unchanged Assessment/Plan: Assessment - Acute severe transaminitis with rapid fall, 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
[2020-03-17] VITALS (24 sets, daily range): BP systolic 110–161; BP diastolic 60–99
--- NOTE | 2020-03-17 00:34 | NUR ---
NURSE NOTES: temperature is 101.7, gave PRN tylenol 650mg for fever. will reassess
--- NOTE | 2020-03-17 00:58 | NUR ---
NURSE NOTES: Temperature of 100.5 noted. Cooling measures done. Will continue to monitor.
--- NOTE | 2020-03-17 02:10 | NUR ---
NURSE NOTES: noted temperature 100.1, cooling measures applied. will continue to monitor
--- NOTE | 2020-03-17 04:00 | NUR ---
NURSE NOTES: provided bed bath. patient temperature is now 97.0
[2020-03-17] MEDS: dilTIAZem HCl 60mg tab GT SCH ×3 (05:13→17:40)
[2020-03-17] MEDS: Piperacillin/Tazobactam 3.375 GM in D5W 110 ML IV SCH (05:13)
--- NOTE | 2020-03-17 06:00 | NUR ---
NURSE NOTES: patient is in bed without any acute distress. HR 70-80s. aggarwal 1.3L total output this shift
[2020-03-17 06:02] LABS: EOSINOPHILS % (AUTO) 5.4 % (0.0-3.0); HEMATOCRIT 28.4 % (42.0-52.0); HEMOGLOBIN 9.1 G/DL (14.2-18.0); LYMPHOCYTES % (AUTO) 8.7 % (20.0-45.0); MEAN CORPUSCULAR VOLUME 96 FL (80-99); MONOCYTES % (AUTO) 6.4 % (1.0-10.0); NEUTROPHILS % (AUTO) 78.5 % (45.0-75.0); PLATELET COUNT 161 K/UL (150-450); RED BLOOD COUNT 2.96 M/UL (4.70-6.10); RED CELL DISTRIBUTION WIDTH 16.1 % (11.6-14.8); WHITE BLOOD COUNT 12.8 K/UL (4.8-10.8)
[2020-03-17] MEDS ORDERED: Acetaminophen 650mg/20.3ml GT PRN (06:15)
[2020-03-17 06:28] LABS: ALANINE AMINOTRANSFERASE 1530 U/L (12-78); ALBUMIN 1.7 G/DL (3.4-5.0); ALBUMIN/GLOBULIN RATIO 0.4 (1.0-2.7); ALKALINE PHOSPHATASE 96 U/L (46-116); ANION GAP 3 mmol/L (5-15); ASPARTATE AMINO TRANSFERASE 503 U/L (15-37); BILIRUBIN,TOTAL 1.3 MG/DL (0.2-1.0); BLOOD UREA NITROGEN 46 mg/dL (7-18); CALCIUM 7.6 MG/DL (8.5-10.1); CARBON DIOXIDE 33 MMOL/L (21-32); CHLORIDE 109 MMOL/L (98-107); CREATININE 1.1 MG/DL (0.55-1.30); POTASSIUM 3.4 MMOL/L (3.5-5.1); SODIUM 145 MMOL/L (136-145)
--- NOTE | 2020-03-17 06:45 | Consultation ---
DATE OF CONSULTATION: 03/16/2020 GASTROENTEROLOGY CONSULTATION CHIEF COMPLAINT: I was asked to see this patient by Dr. Matias Milligan and Dr. Va Danielle for evaluation of abnormal liver tests. HISTORY OF PRESENT ILLNESS: The patient is an unfortunate 85-year-old man with multiple medical problems including respiratory failure requiring tracheostomy and long-term ventilatory management and gastrostomy tube who was brought into the hospital due to bradycardia. The patient herself is obtunded and unable to provide any history. Most of the information is available from the chart. During admission process, he was noted to have significantly high transaminitis; and therefore, this consultation was generated. The transaminases appeared to have already peaked and declining. PAST MEDICAL HISTORY: History of respiratory failure, mechanical ventilation, tracheostomy, stroke, hemiplegia, dysphagia, gastrostomy tube, gastroparesis, pressure ulcers, epilepsy, and atrial fibrillation. FAMILY HISTORY: Unavailable. SOCIAL HISTORY: The patient is from a prison and otherwise no social history is available. REVIEW OF SYSTEMS: Unobtainable. PHYSICAL EXAMINATION: GENERAL: Debilitated elderly man, seen in the ICU HEENT: Normocephalic and atraumatic. NECK: Tracheostomy is in place. Neck is supple. CHEST: Coarse breath sounds. CARDIAC: Regular rate. ABDOMEN: Soft with gastrostomy tube in good position. EXTREMITIES: Trace edema. LABORATORY DATA: Noted. ASSESSMENT: This patient presents with significant acute transaminitis, which appears to be already declining. Given the magnitude of elevation as well as the vital signs in the face of the patient's recent admission, the likelihood of ischemic hepatitis is significant. The treatment would typically be supportive, and at this time liver tests can be followed. The hepatitis viral markers have already been ordered and are pending. Likewise, imaging studies of the abdomen will be ordered and reviewed as well. Should the transaminases persist or worsen, further workup will be necessary. The patient should receive adequate IV hydration to maintain intravascular filling pressure and perfusion. RECOMMENDATIONS: Per above discussion and per orders written in the chart. Thank you for asking me to participate in the care of this patient. Ajit Chappell M.D. DR: PK/V JOB#: [id number] CC: ML
--- NOTE | 2020-03-17 07:20 | NUR ---
NURSE HAND-OFF REPORT: Latest Vital Signs: Temperature 97.0 , Pulse 73 , B/P 110 /67 , Respiratory Rate 16 , O2 SAT 100 , Mechanical Ventilator, O2 Flow Rate 40.0 . Vital Sign Comment: stable EKG Rhythm: Atrial Fibrillation Rhythm change?: N Notified?: Y - Dr Jhonny RICARDO Response: pt now on cardizem gtt Latest Wall Fall Score: 75 Fall Risk: High Risk Safety Measures: Call light Within Reach, Bed Alarm Zone 3, Side Rails Side Rails x3, Bed position Low and Locked. Fall Precautions: Yellow Socks Yellow Gown Door Sign Patient Fall Education Report given to LISSA Salcedo.
--- NOTE | 2020-03-17 07:25 | General Progress Note ---
Subjective ROS Limited/Unobtainable: No Allergies: Coded Allergies: No Known Allergies (Unverified , 02/11/20) Objective Last 24 Hour Vital Signs Date Time Temp Pulse Resp B/P (MAP) Pulse Ox O2 Delivery O2 Flow Rate FiO2 03/17/20 07:00 73 16 110/67 (81) 100 03/17/20 06:00 78 15 128/71 (90) 100 03/17/20 05:13 80 136/74 03/17/20 05:00 80 15 136/74 (94) 100 03/17/20 04:00 Mechanical Ventilator Mechanical Ventilator 03/17/20 04:00 35 03/17/20 04:00 75 03/17/20 04:00 97.0 88 17 124/79 (94) 100 03/17/20 03:00 92 15 161/73 (102) 100 03/17/20 02:57 72 15 35 03/17/20 02:00 81 17 144/75 (98) 100 03/17/20 01:00 88 16 121/60 (80) 100 03/17/20 00:55 100.5 03/17/20 00:00 35 03/17/20 00:00 101.7 112 17 125/77 (93) 100 03/17/20 00:00 Mechanical Ventilator Mechanical Ventilator 03/16/20 23:12 111 123/77 03/16/20 23:00 111 18 123/77 (92) 100 03/16/20 22:42 118 19 35 03/16/20 22:00 103 17 122/75 (91) 100 03/16/20 21:00 98 17 142/98 (113) 100 03/16/20 20:00 111 03/16/20 20:00 98.6 97 18 126/67 (86) 100 03/16/20 20:00 Mechanical Ventilator Mechanical Ventilator 03/16/20 19:00 94 20 131/63 (85) 100 03/16/20 18:57 109 17 35 03/16/20 18:00 109 22 122/78 (93) 100 03/16/20 17:55 103 137/74 03/16/20 17:00 98 17 132/76 (94) 100 03/16/20 16:00 Mechanical Ventilator Mechanical Ventilator 03/16/20 16:00 99.1 03/16/20 16:00 35 03/16/20 16:00 96 03/16/20 16:00 100 17 126/66 (86) 100 03/16/20 15:29 86 20 35 03/16/20 15:00 89 19 119/67 (84) 100 03/16/20 14:30 98 20 116/76 (89) 100 03/16/20 14:00 95 20 123/69 (87) 100 03/16/20 13:30 94 20 122/58 (79) 100 03/16/20 13:00 107 21 118/64 (82) 100 03/16/20 12:30 114 22 113/77 (89) 100 03/16/20 12:21 95 144/86 03/16/20 12:00 Mechanical Ventilator Mechanical Ventilator 03/16/20 12:00 35 03/16/20 12:00 99.0 115 22 127/75 (92) 100 03/16/20 12:00 106 03/16/20 11:30 109 21 128/74 (92) 100 03/16/20 11:30 113 23 124/91 (102) 100 03/16/20 11:00 107 21 126/62 (83) 100 03/16/20 11:00 109 21 105/62 (76) 100 03/16/20 10:30 99 18 130/77 (94) 100 03/16/20 10:30 100 20 124/62 (82) 100 03/16/20 10:23 82 20 100 Mechanical Ventilator 35 92 16 35 03/16/20 10:00 100 20 117/65 (82) 100 03/16/20 10:00 100 20 141/97 (112) 100 03/16/20 09:30 116 19 160/93 (115) 99 03/16/20 09:30 103 21 133/75 (94) 100 03/16/20 09:00 87 17 100/63 (75) 100 03/16/20 09:00 98 18 138/64 (88) 100 03/16/20 08:30 91 18 129/63 (85) 100 03/16/20 08:30 92 18 128/61 (83) 100 03/16/20 08:00 98.3 84 18 136/70 (92) 100 03/16/20 08:00 Mechanical Ventilator Mechanical Ventilator 03/16/20 08:00 35 03/16/20 08:00 93 19 130/102 (111) 100 03/16/20 08:00 93 19 130/102 (111) 100 03/16/20 08:00 112 03/16/20 07:30 89 18 135/82 (99) 100 03/16/20 07:30 93 18 114/75 (88) 100 03/16/20 07:29 84 17 35 Intake and Output 03/16/20 03/17/20 19:00 07:00 Intake Total 1600.0 ml 1325.0 ml Output Total 1504 ml 1330 ml Balance 96.0 ml -5.0 ml Intake Free Water 30 ml 50 ml IV Total 910.0 ml 615.0 ml Tube Feeding 660 ml 660 ml Output Urine Total 1504 ml 1330 ml # Bowel Movements 1 Laboratory Tests 03/16/20 09:00: Hepatitis A IgM Antibody [Pending], Hepatitis B Surface Antigen [Pending], Hepatitis B Core IgM Antibody [Pending], Hepatitis C Antibody [Pending] 03/17/20 04:35: White Blood Count 12.8H, Red Blood Count 2.96L, Hemoglobin 9.1L, Hematocrit 28.4L, Mean Corpuscular Volume 96, Mean Corpuscular Hemoglobin 30.9, Mean Corpuscular Hemoglobin Concent 32.2, Red Cell Distribution Width 16.1H, Platelet Count 161, Mean Platelet Volume 9.1, Neutrophils (%) (Auto) 78.5H, Lymphocytes (%) (Auto) 8.7L, Monocytes (%) (Auto) 6.4, Eosinophils (%) (Auto) 5.4H, Basophils (%) (Auto) 1.0, Sodium Level 145, Potassium Level 3.4L, Chloride Level 109H, Carbon Dioxide Level 33H, Anion Gap 3L, Blood Urea Nitrogen 46H, Creatinine 1.1, Estimat Glomerular Filtration Rate > 60, Glucose Level 119H, Calcium Level 7.6L, Total Bilirubin 1.3H, Direct Bilirubin 1.0H, Aspartate Amino Transf (AST/SGOT) 503H, Alanine Aminotransferase (ALT/SGPT) 1530H, Alkaline Ph osphatase 96, Total Protein 5.8L, Albumin 1.7L, Globulin 4.1, Albumin/Globulin Ratio 0.4L Height (Feet): 6 Weight (Pounds): 185 General Appearance: lethargic EENT: normal ENT inspection Neck: supple Cardiovascular: bradycardia Respiratory/Chest: decreased breath sounds Abdomen: soft, hypoactive bowel sounds Extremities: non-tender Assessment/Plan Problem List: (1) Elevated LFTs ICD Codes: R79.89 - Other specified abnormal findings of blood chemistry SNOMED: 484799802, 728601025 (2) HTN (hypertension) ICD Codes: I10 - Essential (primary) hypertension SNOMED: 89871214 (3) Tracheostomy complication ICD Codes: J95.00 - Unspecified tracheostomy complication SNOMED: 99234436 (4) Anemia ICD Codes: D64.9 - Anemia, unspecified SNOMED: 451198736 (5) Shock liver ICD Codes: K72.00 - Acute and subacute hepatic failure without coma SNOMED: 218151861 Status: unchanged Assessment/Plan: abd ua reviewed LFTS improving hepatitis panel pending repeat LFTS in am anemia work up \ GTF monitor for residuals Velasquez Donahue MD Mar 17, 2020 07:25
--- NOTE | 2020-03-17 08:30 | NUR ---
NURSE NOTES: Report report receded from LISSA Tate. patient is obtunded but open eyes when repositioned to light pain stimulus, pain is 0 using the FLACC scale, he is connected to the mechanical ventilator with setting of AC 14, TV: 500, fio2: 35% with peep of 5, his Johnson is draining clear urine. left femoral TLC is patent running d5w at 75 ml/hr. oral care provided and repositioned patient. Dr. Barry made aware patient as had no episodes of a-fibb with RVR throughout the hotel night auditor, he cleared patient to be transferred to SDU.
[2020-03-17] MEDS: Docusate 100mg/10ml Liq ORAL SCH ×2 (08:54→20:14)
[2020-03-17] MEDS: Heparin 5000 units/ml inj SUBQ SCH ×2 (08:54→20:14)
[2020-03-17] MEDS: Pantoprazole Inj IV SCH ×2 (08:54→20:14)
--- NOTE | 2020-03-17 09:13 | Infectious Diseases Prog Note ---
Assessment/Plan 85yo M with: Afebrile Leukocytosis to 21, improved GNR bacteremia most likely 2/2 UTI Obstructive uropathy s/p drainage w/ aggarwal 03/13 BCx +P.mirabilis (S-CTX) UCx +ESBL E.coli and ESBL P.mirabilis COVID rapid Ag neg CXR: BL pna Abd US neg 03/15 Resp cx p NIURKA, improving Elevated LFTs - AST 1858 / ALT 3987 >> improving Acute hep panel neg Acute on chronic resp failure S/p trach/PEG, vent dependent Prior CVA Hemiplegia Dysphagia Gastroparesis Pressure ulcers Nonverbal SNF resident Plan: Stop Zosyn #3 for bacteremia/UTI/pna Start meropenem #/ to cover for ESBL UTI and bacteremia. Plan for 7 days of meropenem then stop and monitor off abx. On discharge can transition to ertapenem 1g IV daily to complete course D/w wound back, skin breakdown on backside does not look infected, continue to keep skin dry and offload pressure to encourage healing F/u 03/15 resp cx Trend WBC, improving 03/17 SP Zosyn #3 03/16 SP vanco #2 empiric Monitor CBC/CMP Monitor resp status Monitor temp curve, hemodynamics D/w RN Thank you for this consult. [facility] will continue to follow. Subjective Allergies: Coded Allergies: No Known Allergies (Unverified , 02/11/20) AF WBC 12, overall improving NIURKA and LFTs improving NAD on vent D/w wound care about skin breakdown on backside Objective Last 24 Hour Vital Signs Date Time Temp Pulse Resp B/P (MAP) Pulse Ox O2 Delivery O2 Flow Rate FiO2 03/17/20 08:00 35 03/17/20 08:00 100.1 82 17 147/69 (95) 100 03/17/20 07:00 73 16 110/67 (81) 100 03/17/20 06:00 78 15 128/71 (90) 100 03/17/20 05:13 80 136/74 03/17/20 05:00 80 15 136/74 (94) 100 03/17/20 04:00 Mechanical Ventilator Mechanical Ventilator 03/17/20 04:00 35 03/17/20 04:00 75 03/17/20 04:00 97.0 88 17 124/79 (94) 100 03/17/20 03:00 92 15 161/73 (102) 100 03/17/20 02:57 72 15 35 03/17/20 02:00 81 17 144/75 (98) 100 03/17/20 01:00 88 16 121/60 (80) 100 03/17/20 00:55 100.5 03/17/20 00:00 35 03/17/20 00:00 101.7 112 17 125/77 (93) 100 03/17/20 00:00 Mechanical Ventilator Mechanical Ventilator 03/16/20 23:12 111 123/77 03/16/20 23:00 111 18 123/77 (92) 100 03/16/20 22:42 118 19 35 03/16/20 22:00 103 17 122/75 (91) 100 03/16/20 21:00 98 17 142/98 (113) 100 03/16/20 20:00 111 03/16/20 20:00 98.6 97 18 126/67 (86) 100 03/16/20 20:00 Mechanical Ventilator Mechanical Ventilator 03/16/20 19:00 94 20 131/63 (85) 100 03/16/20 18:57 109 17 35 03/16/20 18:00 109 22 122/78 (93) 100 03/16/20 17:55 103 137/74 03/16/20 17:00 98 17 132/76 (94) 100 03/16/20 16:00 Mechanical Ventilator Mechanical Ventilator 03/16/20 16:00 99.1 03/16/20 16:00 35 03/16/20 16:00 96 03/16/20 16:00 100 17 126/66 (86) 100 03/16/20 15:29 86 20 35 03/16/20 15:00 89 19 119/67 (84) 100 03/16/20 14:30 98 20 116/76 (89) 100 03/16/20 14:00 95 20 123/69 (87) 100 03/16/20 13:30 94 20 122/58 (79) 100 03/16/20 13:00 107 21 118/64 (82) 100 03/16/20 12:30 114 22 113/77 (89) 100 03/16/20 12:21 95 144/86 03/16/20 12:00 Mechanical Ventilator Mechanical Ventilator 03/16/20 12:00 35 03/16/20 12:00 99.0 115 22 127/75 (92) 100 03/16/20 12:00 106 03/16/20 11:30 109 21 128/74 (92) 100 03/16/20 11:30 113 23 124/91 (102) 100 03/16/20 11:00 107 21 126/62 (83) 100 03/16/20 11:00 109 21 105/62 (76) 100 03/16/20 10:30 99 18 130/77 (94) 100 03/16/20 10:30 100 20 124/62 (82) 100 03/16/20 10:23 82 20 100 Mechanical Ventilator 35 92 16 35 03/16/20 10:00 100 20 117/65 (82) 100 03/16/20 10:00 100 20 141/97 (112) 100 03/16/20 09:30 116 19 160/93 (115) 99 03/16/20 09:30 103 21 133/75 (94) 100 Height (Feet): 6 Weight (Pounds): 185 Gen: NAD in bed HEENT: NCAT +trach CV: RRR Pulm: CTAB Abd: Soft, NTND Ext: No c/c/e Neuro: Sleeping Microbiology Date/Time Source Procedure Growth Status 03/15/20 12:45 Sputum Gram Stain - Final Resulted 03/15/20 12:45 Sputum Sputum Culture Pending Resulted Laboratory Tests Test 03/17/20 04:35 White Blood Count 12.8 K/UL (4.8-10.8) H Red Blood Count 2.96 M/UL (4.70-6.10) L Hemoglobin 9.1 G/DL (14.2-18.0) L Hematocrit 28.4 % (42.0-52.0) L Mean Corpuscular Volume 96 FL (80-99) Mean Corpuscular Hemoglobin 30.9 PG (27.0-31.0) Mean Corpuscular Hemoglobin Concent 32.2 G/DL (32.0-36.0) Red Cell Distribution Width 16.1 % (11.6-14.8) H Platelet Count 161 K/UL (150-450) Mean Platelet Volume 9.1 FL (6.5-10.1) Neutrophils (%) (Auto) 78.5 % (45.0-75.0) H Lymphocytes (%) (Auto) 8.7 % (20.0-45.0) L Monocytes (%) (Auto) 6.4 % (1.0-10.0) Eosinophils (%) (Auto) 5.4 % (0.0-3.0) H Basophils (%) (Auto) 1.0 % (0.0-2.0) Sodium Level 145 MMOL/L (136-145) Potassium Level 3.4 MMOL/L (3.5-5.1) L Chloride Level 109 MMOL/L (98-107) H Carbon Dioxide Level 33 MMOL/L (21-32) H Anion Gap 3 mmol/L (5-15) L Blood Urea Nitrogen 46 mg/dL (7-18) H Creatinine 1.1 MG/DL (0.55-1.30) Estimat Glomerular Filtration Rate > 60 mL/min (>60) Glucose Level 119 MG/DL (74-106) H Calcium Level 7.6 MG/DL (8.5-10.1) L Total Bilirubin 1.3 MG/DL (0.2-1.0) H Direct Bilirubin 1.0 MG/DL (0.0-0.3) H Aspartate Amino Transf (AST/SGOT) 503 U/L (15-37) H Alanine Aminotransferase (ALT/SGPT) 1530 U/L (12-78) H Alkaline Phosphatase 96 U/L (46-116) Total Protein 5.8 G/DL (6.4-8.2) L Albumin 1.7 G/DL (3.4-5.0) L Globulin 4.1 g/dL Albumin/Globulin Ratio 0.4 (1.0-2.7) L Current Medications Medications (Trade) Dose Ordered Sig/Natalia Route PRN Reason Start Time Stop Time Status Last Admin Dose Admin Acetaminophen (Tylenol) 650 mg Q4H PRN GT Mild Pain 03/17/20 06:15 04/16/20 06:14 Acetaminophen (Tylenol) 650 mg Q4H PRN GT fever 03/17/20 06:30 04/16/20 06:29 Albuterol/ Ipratropium (Albuterol/ Ipratropium) 3 ml Q6H PRN HHN Shortness of Breath 03/13/20 22:45 03/18/20 22:44 03/16/20 10:23 Bisacodyl (Dulcolax) 10 mg DAILYPRN PRN RECTAL Constipation 03/13/20 22:45 06/11/20 22:44 Chlorhexidine Gluconate (Shirley-Hex 2%) 1 applic DAILY@2000 TOPIC 03/15/20 20:00 06/13/20 19:59 03/16/20 20:09 Clonidine HCl (Catapres Tab) 0.1 mg Q2H PRN ORAL For High Blood Pressure 03/16/20 11:30 06/14/20 11:29 Dextrose 1,000 ml @ 75 mls/hr [id number] IV 03/15/20 10:30 04/14/20 10:29 03/17/20 01:50 Dextrose (Dextrose 50%) 25 ml Q30M PRN IV Hypoglycemia 03/13/20 22:45 06/11/20 22:44 Dextrose (Dextrose 50%) 50 ml Q30M PRN IV Hypoglycemia 03/13/20 22:45 06/11/20 22:44 Diltiazem HCl (Cardizem Tab) 60 mg EVERY 6 HOURS GT 03/16/20 18:00 04/15/20 11:59 03/17/20 05:13 Docusate Sodium (Colace) 100 mg Q12HR ORAL 03/15/20 10:00 04/14/20 09:59 03/17/20 08:54 Enalaprilat (Vasotec) 1.25 mg Q3H PRN IV For High Blood Pressure 03/16/20 11:30 04/15/20 11:29 Heparin Sodium (Porcine) (Heparin 5000 units/ml) 5,000 units EVERY 12 HOURS SUBQ 03/14/20 09:00 04/28/20 08:59 03/17/20 08:54 Morphine Sulfate (Morphine Sulfate) 2 mg Q3H PRN IVP Moderate Pain (Pain Scale 4-6) 03/13/20 22:45 03/20/20 22:44 Morphine Sulfate (Morphine Sulfate) 4 mg Q3H PRN IVP Severe Pain (Pain Scale 7-10) 03/13/20 22:45 03/20/20 22:44 03/15/20 20:31 Ondansetron HCl (Zofran) 4 mg Q6H PRN IVP Nausea & Vomiting 03/13/20 22:45 04/12/20 22:44 Pantoprazole (Protonix) 40 mg Q12HR IV 03/14/20 21:00 04/13/20 08:59 03/17/20 08:54 Piperacillin Sod/ Tazobactam Sod 3.375 gm/Dextrose 110 ml @ 27.5 mls/hr EVERY 8 HOURS IV 03/14/20 14:00 03/21/20 05:59 03/17/20 05:13 Carmen Hines M.D. Mar 17, 2020 09:13
--- NOTE | 2020-03-17 09:15 | Cardiac Electrophysiology PN ---
Assessment/Plan Assessment/Plan 1. Profound bradycardia, heart rate dropping to 20s associated with hypotension due to the hyperkalemia and metoprolol. The metoprolol has been discontinued and the patient received atropine and hyperkalemia was treated. Currently, he is not bradycardic 2. Troponin elevation 0.2, 0.4, 0.2, likely due to demand ischemia in this patient with severe sepsis and septic shock. EF 55% 3. Initial hypotension and shock. Likely due to sepsis. White count is improving and the patient is now off both Levophed and dopamine. 4. Hypertension. Within 24 hours, his blood pressure improved from 70 to 200s. Avoid any AV-grecia blockers. Cannot use NNAMDI inhibitor or angiotensin-receptor blockers in view of hyperkalemia and acute renal failure either. We cannot use clonidine patch either in view of bradycardia. On Cardizem and prn vasotec and clonidine 5. Atrial fib with RVR. On Cardizem 60 GT q 6hr 6. Ventilator-dependent respiratory failure, status post tracheostomy. 7. Dysphagia, status post PEG placement. 8. CVA with hemiplegia. 9. Pressure ulcers. 10. Anemia. 11. Shock liver. 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 Troponins flat and low Off Cardizem drip and on Cardizem 60 q 6 via PEG Objective Last 24 Hour Vital Signs Date Time Temp Pulse Resp B/P (MAP) Pulse Ox O2 Delivery O2 Flow Rate FiO2 03/17/20 08:00 35 03/17/20 08:00 100.1 82 17 147/69 (95) 100 03/17/20 07:00 73 16 110/67 (81) 100 03/17/20 06:00 78 15 128/71 (90) 100 03/17/20 05:13 80 136/74 03/17/20 05:00 80 15 136/74 (94) 100 03/17/20 04:00 Mechanical Ventilator Mechanical Ventilator 03/17/20 04:00 35 03/17/20 04:00 75 03/17/20 04:00 97.0 88 17 124/79 (94) 100 03/17/20 03:00 92 15 161/73 (102) 100 03/17/20 02:57 72 15 35 03/17/20 02:00 81 17 144/75 (98) 100 03/17/20 01:00 88 16 121/60 (80) 100 03/17/20 00:55 100.5 03/17/20 00:00 35 03/17/20 00:00 101.7 112 17 125/77 (93) 100 03/17/20 00:00 Mechanical Ventilator Mechanical Ventilator 03/16/20 23:12 111 123/77 03/16/20 23:00 111 18 123/77 (92) 100 03/16/20 22:42 118 19 35 03/16/20 22:00 103 17 122/75 (91) 100 03/16/20 21:00 98 17 142/98 (113) 100 03/16/20 20:00 111 03/16/20 20:00 98.6 97 18 126/67 (86) 100 03/16/20 20:00 Mechanical Ventilator Mechanical Ventilator 03/16/20 19:00 94 20 131/63 (85) 100 03/16/20 18:57 109 17 35 03/16/20 18:00 109 22 122/78 (93) 100 03/16/20 17:55 103 137/74 03/16/20 17:00 98 17 132/76 (94) 100 03/16/20 16:00 Mechanical Ventilator Mechanical Ventilator 03/16/20 16:00 99.1 03/16/20 16:00 35 03/16/20 16:00 96 03/16/20 16:00 100 17 126/66 (86) 100 03/16/20 15:29 86 20 35 03/16/20 15:00 89 19 119/67 (84) 100 03/16/20 14:30 98 20 116/76 (89) 100 03/16/20 14:00 95 20 123/69 (87) 100 03/16/20 13:30 94 20 122/58 (79) 100 03/16/20 13:00 107 21 118/64 (82) 100 03/16/20 12:30 114 22 113/77 (89) 100 03/16/20 12:21 95 144/86 03/16/20 12:00 Mechanical Ventilator Mechanical Ventilator 03/16/20 12:00 35 03/16/20 12:00 99.0 115 22 127/75 (92) 100 03/16/20 12:00 106 03/16/20 11:30 109 21 128/74 (92) 100 03/16/20 11:30 113 23 124/91 (102) 100 03/16/20 11:00 107 21 126/62 (83) 100 03/16/20 11:00 109 21 105/62 (76) 100 03/16/20 10:30 99 18 130/77 (94) 100 03/16/20 10:30 100 20 124/62 (82) 100 03/16/20 10:23 82 20 100 Mechanical Ventilator 35 92 16 35 03/16/20 10:00 100 20 117/65 (82) 100 03/16/20 10:00 100 20 141/97 (112) 100 03/16/20 09:30 116 19 160/93 (115) 99 03/16/20 09:30 103 21 133/75 (94) 100 Intake and Output 03/16/20 03/17/20 18:59 06:59 Intake Total 1705.0 ml 1222.5 ml Output Total 1514 ml 1280 ml Balance 191.0 ml -57.5 ml Intake Free Water 30 ml 50 ml IV Total 1015.0 ml 512.5 ml Tube Feeding 660 ml 660 ml Output Urine Total 1514 ml 1280 ml # Bowel Movements 1 Laboratory Tests Test 03/17/20 04:35 White Blood Count 12.8 K/UL (4.8-10.8) H Red Blood Count 2.96 M/UL (4.70-6.10) L Hemoglobin 9.1 G/DL (14.2-18.0) L Hematocrit 28.4 % (42.0-52.0) L Mean Corpuscular Volume 96 FL (80-99) Mean Corpuscular Hemoglobin 30.9 PG (27.0-31.0) Mean Corpuscular Hemoglobin Concent 32.2 G/DL (32.0-36.0) Red Cell Distribution Width 16.1 % (11.6-14.8) H Platelet Count 161 K/UL (150-450) Mean Platelet Volume 9.1 FL (6.5-10.1) Neutrophils (%) (Auto) 78.5 % (45.0-75.0) H Lymphocytes (%) (Auto) 8.7 % (20.0-45.0) L Monocytes (%) (Auto) 6.4 % (1.0-10.0) Eosinophils (%) (Auto) 5.4 % (0.0-3.0) H Basophils (%) (Auto) 1.0 % (0.0-2.0) Sodium Level 145 MMOL/L (136-145) Potassium Level 3.4 MMOL/L (3.5-5.1) L Chloride Level 109 MMOL/L (98-107) H Carbon Dioxide Level 33 MMOL/L (21-32) H Anion Gap 3 mmol/L (5-15) L Blood Urea Nitrogen 46 mg/dL (7-18) H Creatinine 1.1 MG/DL (0.55-1.30) Estimat Glomerular Filtration Rate > 60 mL/min (>60) Glucose Level 119 MG/DL (74-106) H Calcium Level 7.6 MG/DL (8.5-10.1) L Total Bilirubin 1.3 MG/DL (0.2-1.0) H Direct Bilirubin 1.0 MG/DL (0.0-0.3) H Aspartate Amino Transf (AST/SGOT) 503 U/L (15-37) H Alanine Aminotransferase (ALT/SGPT) 1530 U/L (12-78) H Alkaline Phosphatase 96 U/L (46-116) Total Protein 5.8 G/DL (6.4-8.2) L Albumin 1.7 G/DL (3.4-5.0) L Globulin 4.1 g/dL Albumin/Globulin Ratio 0.4 (1.0-2.7) L Microbiology Date/Time Source Procedure Growth Status 03/15/20 12:45 Sputum Gram Stain - Final Resulted 03/15/20 12:45 Sputum Sputum Culture Pending Resulted Objective HEAD AND NECK: No JVD. Status post tracheostomy. LUNGS: Coarse rhonchi. CARDIOVASCULAR: Regular S1 and S2 with no gallop. ABDOMEN: Status post G-tube. EXTREMITIES: 1+ pitting edema. Liang Barry MD Mar 17, 2020 09:15
[2020-03-17] MEDS: Acetaminophen 650mg/20.3ml GT PRN (10:22)
--- NOTE | 2020-03-17 10:45 | NUR ---
NURSE NOTES: Dr. Hines at the bedside assessing patient, made aware of the patient urine sample resulted with ESBL, antibiotics changed to meropenem 1Gram. no further orders given at this time.
[2020-03-17 11:28] LABS: PHOSPHORUS 1.5 MG/DL (2.5-4.9)
--- NOTE | 2020-03-17 11:30 | NUR ---
NURSE NOTES: Dr. Longoria made aware of patient potassium level of 3.4, order placed for potassium of 20meq of potassium chloride along with 4 grams of magnesium sulfate and 20mm of potassium phosphate. no further orders given at this time.
[2020-03-17] MEDS: Meropenem 1 GM in NS 55 ML IVPB SCH ×2 (12:01→17:41)
--- NOTE | 2020-03-17 12:02 | Pulmonology Progress Note ---
Subjective ROS Limited/Unobtainable: No Interval Events: None new reported Constitutional: Reports: no symptoms HEENT: Repors: no symptoms Respiratory: Reports: no symptoms Cardiovascular: Reports: no symptoms Gastrointestinal/Abdominal: Reports: no symptoms Genitourinary: Reports: no symptoms Allergies: Coded Allergies: No Known Allergies (Unverified , 02/11/20) All Systems: reviewed and negative except above Objective Last 24 Hour Vital Signs Date Time Temp Pulse Resp B/P (MAP) Pulse Ox O2 Delivery O2 Flow Rate FiO2 03/17/20 11:48 99 141/80 03/17/20 11:12 111 16 35 03/17/20 10:00 81 16 118/68 (85) 100 03/17/20 09:00 77 17 124/68 (86) 100 03/17/20 08:00 35 03/17/20 08:00 81 03/17/20 08:00 100.1 82 17 147/69 (95) 100 03/17/20 07:18 81 18 35 03/17/20 07:00 73 16 110/67 (81) 100 03/17/20 06:00 78 15 128/71 (90) 100 03/17/20 05:13 80 136/74 03/17/20 05:00 80 15 136/74 (94) 100 03/17/20 04:00 Mechanical Ventilator Mechanical Ventilator 03/17/20 04:00 35 03/17/20 04:00 75 03/17/20 04:00 97.0 88 17 124/79 (94) 100 03/17/20 03:00 92 15 161/73 (102) 100 03/17/20 02:57 72 15 35 03/17/20 02:00 81 17 144/75 (98) 100 03/17/20 01:00 88 16 121/60 (80) 100 03/17/20 00:55 100.5 03/17/20 00:00 35 03/17/20 00:00 101.7 112 17 125/77 (93) 100 03/17/20 00:00 Mechanical Ventilator Mechanical Ventilator 03/16/20 23:12 111 123/77 03/16/20 23:00 111 18 123/77 (92) 100 03/16/20 22:42 118 19 35 03/16/20 22:00 103 17 122/75 (91) 100 03/16/20 21:00 98 17 142/98 (113) 100 03/16/20 20:00 111 03/16/20 20:00 98.6 97 18 126/67 (86) 100 03/16/20 20:00 Mechanical Ventilator Mechanical Ventilator 03/16/20 19:00 94 20 131/63 (85) 100 03/16/20 18:57 109 17 35 03/16/20 18:00 109 22 122/78 (93) 100 03/16/20 17:55 103 137/74 03/16/20 17:00 98 17 132/76 (94) 100 03/16/20 16:00 Mechanical Ventilator Mechanical Ventilator 03/16/20 16:00 99.1 03/16/20 16:00 35 03/16/20 16:00 96 03/16/20 16:00 100 17 126/66 (86) 100 03/16/20 15:29 86 20 35 03/16/20 15:00 89 19 119/67 (84) 100 03/16/20 14:30 98 20 116/76 (89) 100 03/16/20 14:00 95 20 123/69 (87) 100 03/16/20 13:30 94 20 122/58 (79) 100 03/16/20 13:00 107 21 118/64 (82) 100 03/16/20 12:30 114 22 113/77 (89) 100 03/16/20 12:21 95 144/86 Intake and Output 03/16/20 03/17/20 19:00 07:00 Intake Total 1600.0 ml 1325.0 ml Output Total 1504 ml 1330 ml Balance 96.0 ml -5.0 ml Intake Free Water 30 ml 50 ml IV Total 910.0 ml 615.0 ml Tube Feeding 660 ml 660 ml Output Urine Total 1504 ml 1330 ml # Bowel Movements 1 General Appearance: no acute distress HEENT: normocephalic, mucous membranes moist, status post trach Respiratory: chest wall non-tender Cardiovascular: normal peripheral pulses, normal rate Abdomen: normal bowel sounds Microbiology Date/Time Source Procedure Growth Status 03/15/20 12:45 Sputum Gram Stain - Final Resulted 03/15/20 12:45 Sputum Sputum Culture Pending Resulted Laboratory Tests 03/17/20 04:35: White Blood Count 12.8H, Red Blood Count 2.96L, Hemoglobin 9.1L, Hematocrit 28.4L, Mean Corpuscular Volume 96, Mean Corpuscular Hemoglobin 30.9, Mean Corpuscular Hemoglobin Concent 32.2, Red Cell Distribution Width 16.1H, Platelet Count 161, Mean Platelet Volume 9.1, Neutrophils (%) (Auto) 78.5H, Lymphocytes (%) (Auto) 8.7L, Monocytes (%) (Auto) 6.4, Eosinophils (%) (Auto) 5.4H, Basophils (%) (Auto) 1.0, Sodium Level 145, Potassium Level 3.4L, Chloride Level 109H, Carbon Dioxide Level 33H, Anion Gap 3L, Blood Urea Nitrogen 46H, Creatinine 1.1, Estimat Glomerular Filtration Rate > 60, Glucose Level 119H, Calcium Level 7.6L, Phosphorus Level 1.5L, Magnesium Level 1.4L, Total Bilirubin 1.3H, Direct Bilirubin 1.0H, Aspartate Amino Transf (AST/SGOT) 503H, Alanine Aminotransferase (ALT/SGPT) 1530H, Alkaline Phosphatase 96, Total Protein 5.8L, Albumin 1.7L, Globulin 4.1, Albumin/Globulin Ratio 0.4L Current Medications Medications (Trade) Dose Ordered Sig/Natalia Route PRN Reason Start Time Stop Time Status Last Admin Dose Admin Acetaminophen (Tylenol) 650 mg Q4H PRN GT Mild Pain 03/17/20 06:15 04/16/20 06:14 Acetaminophen (Tylenol) 650 mg Q4H PRN GT fever 03/17/20 06:30 04/16/20 06:29 03/17/20 10:22 Albuterol/ Ipratropium (Albuterol/ Ipratropium) 3 ml Q6H PRN HHN Shortness of Breath 03/13/20 22:45 03/18/20 22:44 03/16/20 10:23 Bisacodyl (Dulcolax) 10 mg DAILYPRN PRN RECTAL Constipation 03/13/20 22:45 06/11/20 22:44 Chlorhexidine Gluconate (Shirley-Hex 2%) 1 applic DAILY@2000 TOPIC 03/15/20 20:00 06/13/20 19:59 03/16/20 20:09 Clonidine HCl (Catapres Tab) 0.1 mg Q2H PRN ORAL For High Blood Pressure 03/16/20 11:30 06/14/20 11:29 Dextrose 1,000 ml @ 75 mls/hr [id number] IV 03/15/20 10:30 04/14/20 10:29 03/17/20 01:50 Dextrose (Dextrose 50%) 25 ml Q30M PRN IV Hypoglycemia 03/13/20 22:45 06/11/20 22:44 Dextrose (Dextrose 50%) 50 ml Q30M PRN IV Hypoglycemia 03/13/20 22:45 06/11/20 22:44 Diltiazem HCl (Cardizem Tab) 60 mg EVERY 6 HOURS GT 03/16/20 18:00 04/15/20 11:59 03/17/20 11:48 Docusate Sodium (Colace) 100 mg Q12HR ORAL 03/15/20 10:00 04/14/20 09:59 03/17/20 08:54 Enalaprilat (Vasotec) 1.25 mg Q3H PRN IV For High Blood Pressure 03/16/20 11:30 04/15/20 11:29 Heparin Sodium (Porcine) (Heparin 5000 units/ml) 5,000 units EVERY 12 HOURS SUBQ 03/14/20 09:00 04/28/20 08:59 03/17/20 08:54 Meropenem 1 gm/ Sodium Chloride 55 ml @ 110 mls/hr Q8H IVPB 03/17/20 11:00 03/22/20 10:59 Morphine Sulfate (Morphine Sulfate) 2 mg Q3H PRN IVP Moderate Pain (Pain Scale 4-6) 03/13/20 22:45 03/20/20 22:44 Morphine Sulfate (Morphine Sulfate) 4 mg Q3H PRN IVP Severe Pain (Pain Scale 7-10) 03/13/20 22:45 03/20/20 22:44 03/15/20 20:31 Ondansetron HCl (Zofran) 4 mg Q6H PRN IVP Nausea & Vomiting 03/13/20 22:45 04/12/20 22:44 Pantoprazole (Protonix) 40 mg Q12HR IV 03/14/20 21:00 04/13/20 08:59 03/17/20 08:54 Potassium Chloride 100 ml @ 50 mls/hr ONCE ONCE IVPB 03/17/20 11:00 03/17/20 12:59 03/17/20 11:47 Assessment/Plan Assessment/Plan IMPRESSION: 1. Worsening pulmonary infiltrates. 2. Pneumonia, healthcare associated. 3. Bacteremia with gram-negative rods. 4. UTI with gram-negative rods. 5. Negative COVID-19 rapid gene assay. 6. Chronic respiratory failure. 7. Seizure disorder. 8. Liver cirrhosis. 9. Paroxysmal atrial fibrillation. DISCUSSION: Agree with current medications and care. I will continue assist-control mechanical ventilation. ABG is adequate. I will decrease FiO2 as tolerated. 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 Discussed with Dr. Danielle. OK to transfer to [facility] Kandy Golden Omar Syed MD Mar 17, 2020 12:02
--- NOTE | 2020-03-17 12:17 | Nephrology Progress Note ---
Assessment/Plan Problem List: (1) NIURKA (acute kidney injury) (2) Renal failure (ARF), acute on chronic (3) HTN (hypertension) (4) Sepsis (5) Elevated LFTs Assessment Acute renal failure secondary to urinary outlet obstruction Electrolyte abnormalities, hyperkalemia Chronic respiratory failure trach and vent dependent History of atrial fibrillation PEG Anemia Patient presented with low blood pressure and shock liver Plan March 17: Renal parameters improved. Abnormal electrolyte noted reviewed and addressed. Continue per current management. Discussed with RN. March 16: Renal parameters improved. Abnormal electrolytes addressed. Blood pressure controlled. Continue per current management. March 15: Hydrate and change IV to D5W. Add Norvasc for high blood pressure. Continue to monitor renal parameters and electrolytes. Can start GT feeding. Discussed with RN. March 14: Hydrate As needed hydralazine for high or high blood pressure Monitor electrolyte renal parameters Treatment of underlying sepsis Per orders Subjective ROS Limited/Unobtainable: Yes Objective Objective Last 24 Hour Vital Signs Date Time Temp Pulse Resp B/P (MAP) Pulse Ox O2 Delivery O2 Flow Rate FiO2 03/17/20 12:01 100.0 03/17/20 12:00 109 21 131/83 (99) 100 03/17/20 12:00 35 03/17/20 11:48 99 141/80 03/17/20 11:12 111 16 35 03/17/20 11:00 90 18 123/90 (101) 100 03/17/20 10:00 81 16 118/68 (85) 100 03/17/20 09:00 77 17 124/68 (86) 100 03/17/20 08:00 35 03/17/20 08:00 81 03/17/20 08:00 100.1 82 17 147/69 (95) 100 03/17/20 07:18 81 18 35 03/17/20 07:00 73 16 110/67 (81) 100 03/17/20 06:00 78 15 128/71 (90) 100 03/17/20 05:13 80 136/74 03/17/20 05:00 80 15 136/74 (94) 100 03/17/20 04:00 Mechanical Ventilator Mechanical Ventilator 03/17/20 04:00 35 03/17/20 04:00 75 03/17/20 04:00 97.0 88 17 124/79 (94) 100 03/17/20 03:00 92 15 161/73 (102) 100 03/17/20 02:57 72 15 35 03/17/20 02:00 81 17 144/75 (98) 100 03/17/20 01:00 88 16 121/60 (80) 100 03/17/20 00:55 100.5 03/17/20 00:00 35 03/17/20 00:00 101.7 112 17 125/77 (93) 100 03/17/20 00:00 Mechanical Ventilator Mechanical Ventilator 03/16/20 23:12 111 123/77 03/16/20 23:00 111 18 123/77 (92) 100 03/16/20 22:42 118 19 35 03/16/20 22:00 103 17 122/75 (91) 100 03/16/20 21:00 98 17 142/98 (113) 100 03/16/20 20:00 111 03/16/20 20:00 98.6 97 18 126/67 (86) 100 03/16/20 20:00 Mechanical Ventilator Mechanical Ventilator 03/16/20 19:00 94 20 131/63 (85) 100 03/16/20 18:57 109 17 35 03/16/20 18:00 109 22 122/78 (93) 100 03/16/20 17:55 103 137/74 03/16/20 17:00 98 17 132/76 (94) 100 03/16/20 16:00 Mechanical Ventilator Mechanical Ventilator 03/16/20 16:00 99.1 03/16/20 16:00 35 03/16/20 16:00 96 03/16/20 16:00 100 17 126/66 (86) 100 03/16/20 15:29 86 20 35 03/16/20 15:00 89 19 119/67 (84) 100 03/16/20 14:30 98 20 116/76 (89) 100 03/16/20 14:00 95 20 123/69 (87) 100 03/16/20 13:30 94 20 122/58 (79) 100 03/16/20 13:00 107 21 118/64 (82) 100 03/16/20 12:30 114 22 113/77 (89) 100 03/16/20 12:21 95 144/86 Intake and Output 03/16/20 03/17/20 19:00 07:00 Intake Total 1600.0 ml 1325.0 ml Output Total 1504 ml 1330 ml Balance 96.0 ml -5.0 ml Intake Free Water 30 ml 50 ml IV Total 910.0 ml 615.0 ml Tube Feeding 660 ml 660 ml Output Urine Total 1504 ml 1330 ml # Bowel Movements 1 Current Medications Medications (Trade) Dose Ordered Sig/Natalia Route PRN Reason Start Time Stop Time Status Last Admin Dose Admin Acetaminophen (Tylenol) 650 mg Q4H PRN GT Mild Pain 03/17/20 06:15 04/16/20 06:14 Acetaminophen (Tylenol) 650 mg Q4H PRN GT fever 03/17/20 06:30 04/16/20 06:29 03/17/20 10:22 Albuterol/ Ipratropium (Albuterol/ Ipratropium) 3 ml Q6H PRN HHN Shortness of Breath 03/13/20 22:45 03/18/20 22:44 03/16/20 10:23 Bisacodyl (Dulcolax) 10 mg DAILYPRN PRN RECTAL Constipation 03/13/20 22:45 06/11/20 22:44 Chlorhexidine Gluconate (Shirley-Hex 2%) 1 applic DAILY@2000 TOPIC 03/15/20 20:00 06/13/20 19:59 03/16/20 20:09 Clonidine HCl (Catapres Tab) 0.1 mg Q2H PRN ORAL For High Blood Pressure 03/16/20 11:30 06/14/20 11:29 Dextrose 1,000 ml @ 75 mls/hr [id number] IV 03/15/20 10:30 04/14/20 10:29 03/17/20 01:50 Dextrose (Dextrose 50%) 25 ml Q30M PRN IV Hypoglycemia 03/13/20 22:45 06/11/20 22:44 Dextrose (Dextrose 50%) 50 ml Q30M PRN IV Hypoglycemia 03/13/20 22:45 06/11/20 22:44 Diltiazem HCl (Cardizem Tab) 60 mg EVERY 6 HOURS GT 03/16/20 18:00 04/15/20 11:59 03/17/20 11:48 Docusate Sodium (Colace) 100 mg Q12HR ORAL 03/15/20 10:00 04/14/20 09:59 03/17/20 08:54 Enalaprilat (Vasotec) 1.25 mg Q3H PRN IV For High Blood Pressure 03/16/20 11:30 04/15/20 11:29 Heparin Sodium (Porcine) (Heparin 5000 units/ml) 5,000 units EVERY 12 HOURS SUBQ 03/14/20 09:00 04/28/20 08:59 03/17/20 08:54 Meropenem 1 gm/ Sodium Chloride 55 ml @ 110 mls/hr Q8H IVPB 03/17/20 11:00 03/22/20 10:59 03/17/20 12:01 Morphine Sulfate (Morphine Sulfate) 2 mg Q3H PRN IVP Moderate Pain (Pain Scale 4-6) 03/13/20 22:45 03/20/20 22:44 Morphine Sulfate (Morphine Sulfate) 4 mg Q3H PRN IVP Severe Pain (Pain Scale 7-10) 03/13/20 22:45 03/20/20 22:44 03/15/20 20:31 Ondansetron HCl (Zofran) 4 mg Q6H PRN IVP Nausea & Vomiting 03/13/20 22:45 04/12/20 22:44 Pantoprazole (Protonix) 40 mg Q12HR IV 03/14/20 21:00 04/13/20 08:59 03/17/20 08:54 Potassium Chloride 100 ml @ 50 mls/hr ONCE ONCE IVPB 03/17/20 11:00 03/17/20 12:59 03/17/20 11:47 Laboratory Tests 03/17/20 04:35: White Blood Count 12.8H, Red Blood Count 2.96L, Hemoglobin 9.1L, Hematocrit 28.4L, Mean Corpuscular Volume 96, Mean Corpuscular Hemoglobin 30.9, Mean Corpuscular Hemoglobin Concent 32.2, Red Cell Distribution Width 16.1H, Platelet Count 161, Mean Platelet Volume 9.1, Neutrophils (%) (Auto) 78.5H, Lymphocytes (%) (Auto) 8.7L, Monocytes (%) (Auto) 6.4, Eosinophils (%) (Auto) 5.4H, Basophils (%) (Auto) 1.0, Sodium Level 145, Potassium Level 3.4L, Chloride Level 109H, Carbon Dioxide Level 33H, Anion Gap 3L, Blood Urea Nitrogen 46H, Creatinine 1.1, Estimat Glomerular Filtration Rate > 60, Glucose Level 119H, Calcium Level 7.6L, Phosphorus Level 1.5L, Magnesium Level 1.4L, Total Bilirubin 1.3H, Direct Bilirubin 1.0H, Aspartate Amino Transf (AST/SGOT) 503H, Alanine Aminotransferase (ALT/SGPT) 1530H, Alkaline Phosphatase 96, Total Protein 5.8L, Albumin 1.7L, Globulin 4.1, Albumin/Globulin Ratio 0.4L Height (Feet): 6 Weight (Pounds): 185 General Appearance: no apparent distress EENT: other - On vent Cardiovascular: tachycardia Respiratory/Chest: decreased breath sounds Abdomen: distended Tano Longoria MD Mar 17, 2020 12:17
--- NOTE | 2020-03-17 12:33 | General Progress Note ---
Subjective Date patient seen: Mar 17, 2020 Time patient seen: 12:30 ROS Limited/Unobtainable: Yes Allergies: Coded Allergies: No Known Allergies (Unverified , 02/11/20) All Systems: reviewed and negative except above Subjective non verbal Objective Last 24 Hour Vital Signs Date Time Temp Pulse Resp B/P (MAP) Pulse Ox O2 Delivery O2 Flow Rate FiO2 03/17/20 12:01 100.0 03/17/20 12:00 109 21 131/83 (99) 100 03/17/20 12:00 35 03/17/20 11:48 99 141/80 03/17/20 11:12 111 16 35 03/17/20 11:00 90 18 123/90 (101) 100 03/17/20 10:00 81 16 118/68 (85) 100 03/17/20 09:00 77 17 124/68 (86) 100 03/17/20 08:00 35 03/17/20 08:00 81 03/17/20 08:00 100.1 82 17 147/69 (95) 100 03/17/20 07:18 81 18 35 03/17/20 07:00 73 16 110/67 (81) 100 03/17/20 06:00 78 15 128/71 (90) 100 03/17/20 05:13 80 136/74 03/17/20 05:00 80 15 136/74 (94) 100 03/17/20 04:00 Mechanical Ventilator Mechanical Ventilator 03/17/20 04:00 35 03/17/20 04:00 75 03/17/20 04:00 97.0 88 17 124/79 (94) 100 03/17/20 03:00 92 15 161/73 (102) 100 03/17/20 02:57 72 15 35 03/17/20 02:00 81 17 144/75 (98) 100 03/17/20 01:00 88 16 121/60 (80) 100 03/17/20 00:55 100.5 03/17/20 00:00 35 03/17/20 00:00 101.7 112 17 125/77 (93) 100 03/17/20 00:00 Mechanical Ventilator Mechanical Ventilator 03/16/20 23:12 111 123/77 03/16/20 23:00 111 18 123/77 (92) 100 03/16/20 22:42 118 19 35 03/16/20 22:00 103 17 122/75 (91) 100 03/16/20 21:00 98 17 142/98 (113) 100 03/16/20 20:00 111 03/16/20 20:00 98.6 97 18 126/67 (86) 100 03/16/20 20:00 Mechanical Ventilator Mechanical Ventilator 03/16/20 19:00 94 20 131/63 (85) 100 03/16/20 18:57 109 17 35 03/16/20 18:00 109 22 122/78 (93) 100 03/16/20 17:55 103 137/74 03/16/20 17:00 98 17 132/76 (94) 100 03/16/20 16:00 Mechanical Ventilator Mechanical Ventilator 03/16/20 16:00 99.1 03/16/20 16:00 35 03/16/20 16:00 96 03/16/20 16:00 100 17 126/66 (86) 100 03/16/20 15:29 86 20 35 03/16/20 15:00 89 19 119/67 (84) 100 03/16/20 14:30 98 20 116/76 (89) 100 03/16/20 14:00 95 20 123/69 (87) 100 03/16/20 13:30 94 20 122/58 (79) 100 03/16/20 13:00 107 21 118/64 (82) 100 03/16/20 12:30 114 22 113/77 (89) 100 Intake and Output 0 03/16/20 03/17/20 19:00 07:00 Intake Total 1600.0 ml 1325.0 ml Output Total 1504 ml 1330 ml Balance 96.0 ml -5.0 ml Intake Free Water 30 ml 50 ml IV Total 910.0 ml 615.0 ml Tube Feeding 660 ml 660 ml Output Urine Total 1504 ml 1330 ml # Bowel Movements 1 Laboratory Tests 03/17/20 04:35: White Blood Count 12.8H, Red Blood Count 2.96L, Hemoglobin 9.1L, Hematocrit 28.4L, Mean Corpuscular Volume 96, Mean Corpuscular Hemoglobin 30.9, Mean Corpuscular Hemoglobin Concent 32.2, Red Cell Distribution Width 16.1H, Platelet Count 161, Mean Platelet Volume 9.1, Neutrophils (%) (Auto) 78.5H, Lymphocytes (%) (Auto) 8.7L, Monocytes (%) (Auto) 6.4, Eosinophils (%) (Auto) 5.4H, Basophils (%) (Auto) 1.0, Sodium Level 145, Potassium Level 3.4L, Chloride Level 109H, Carbon Dioxide Level 33H, Anion Gap 3L, Blood Urea Nitrogen 46H, Creatinine 1.1, Estimat Glomerular Filtration Rate > 60, Glucose Level 119H, Calcium Level 7.6L, Phosphorus Level 1.5L, Magnesium Level 1.4L, Total Bilirubin 1.3H, Direct Bilirubin 1.0H, Aspartate Amino Transf (AST/SGOT) 503H, Alanine Aminotransferase (ALT/SGPT) 1530H, Alkaline Phosphatase 96, Total Protein 5.8L, Albumin 1.7L, Globulin 4.1, Albumin/Globulin Ratio 0.4L Height (Feet): 6 Weight (Pounds): 185 General Appearance: moderate distress EENT: PERRL/EOMI Neck: non-tender Cardiovascular: normal rate Respiratory/Chest: lungs clear Neurologic: motor weakness Objective CLINICAL HISTORY: ABN LABS TECHNIQUE: Real-time ultrasound of the abdomen with image documentation. COMPARISON: Abdominal ultrasound on 02/17/2020 FINDINGS: Liver: Left liver not visualized. Liver measures 13.0 cm. No focal lesion. Gallbladder: No gallbladder wall thickening or pericholecystic fluid. No definite stones or sludge. Common bile duct: Normal common bile duct measuring 5.2 mm. No stones. No dilation. Pancreas: Pancreas could not be visualized due to presence of bandaging. Kidneys: Right kidney measures 8.3 cm in length. No hydronephrosis or stone. Left kidney measures 10.3 cm in length. No hydronephrosis or stone. Spleen: Spleen measures 8.9 cm. Aorta: Not visualized. Inferior vena cava: Not visualized. Other vasculature: Patent main portal vein with normal direction of flow. Free fluid: No ascites. IMPRESSION: No acute findings in the abdomen. 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 # Bradycardia - Junctional rhythym on admission, resolved. # NSTEMI - Serial troponin with decreasing titter noted. TTE Initial EKG showed junctional bradycardia and prolonged QRS/QT interval concerning for hyperkalemia. Patient's HR in the ER was 40 worsened into heart rate in the 20s with subsequent hypotension 03/14. Patient was treated with calcium, magnesium, bicarb at bedside due to concern for hyperkalemia. Atropine and Epi given in the ER. Dopamine gtt titration started in the ED. Cardiology consultation requested with Dr. Barry and telemetry showed Atrial Fibrillation with RVR 03/15/20. Diltiazem gtt started and now adjusted to Cadizem 60 mg q 6 hr, GT #Sepsis consistent with ventilator associated pneumonia. Tracheostomy is in place Broad sp antibiotic started and WBC improving and less than 20K now GNR in all blood culture bottles noted today. ID consultation requested with Dr Hines. Vancomycin stopped. Zosyn stopped 03/17 and Meropenem started by ID ESBL E. Coli and Proteus M noted in cultures Treat fever with cooling measures. # Hyperkalemia on admission Treated medically. K down to 6.1 from 6.3 Renal consulation requested with Dr. Laguerre Today K 3.4 and repleted. # Hypomagnesemia 1.4 Replete # Hypophosphatemia 1.5 Replet # History of L renal mass by US 02/17/20 # NIURKA on CKD Creatinine decreasing and possibly due to severe urinary retention which was relieved in the ED after aggarwal insertion. Monitor I/O's Renal consultation appreciated. 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 Non emergent per neurology. Neurology consultation for follow up and prognosis. I discussed with family and they reported that the patient is full care trach/peg since original CVA, he is NOT ambulatory and non verbal which is his current state now. Line Central line Diet Tube feeds. DVT ppx GI ppx FULL CODE Family was called 03/15 and they are hopeful that the patient will return to his prior baseline. I updated the daughter about cardiac, renal, lung, liver current status and high complexity and morbidity mortality for the patient. [facility] discussion follow up will be needed pending on clinical progress. Va Danielle MD Mar 17, 2020 12:33
--- NOTE | 2020-03-17 12:45 | NUR ---
NURSE NOTES: Dr. Otero updated on patient condition and has cleared patient to be transferred to SDU and order.
--- NOTE | 2020-03-17 13:45 | NUR ---
NURSE NOTES: Dr. Brown updated on patient condition and will be taken to ct scan in a few moments. no orders given at this time.
[2020-03-17] MEDS ORDERED: NS 275ml ONE (13:57)
[2020-03-17] MEDS ORDERED: D5 1/2NS 1000ml IV ONE (13:57)
[2020-03-17] MEDS ORDERED: Potassium Phosphate 20 MM in NS 275 ML IV ONE (14:00)
--- NOTE | 2020-03-17 15:00 | NUR ---
NURSE NOTES:WOUND CARE NOTES:Pt presented on admission with multiple Skin breakdown.Scattered Senile purpuras both upper extremities. Category 3 Skin Tear R antecubital/R lateral elbow with 100% Flap loss. Base of wound is hallie with scattered Biofilm.. Edges are macerated with surrounding purpura. MASD upper L back. Affected area is reg pink with scattered satellite lesions that mostly dry with Few lesions noted to have small amt sanguineous exudate. Sacral DTPI (L)5.5cm x (W)6.5cm. Base of Pressure Injury is indurated with , Maroon with purpuric area at sacrococcygeal area. Scattered dry plaques noted to L Buttocks. Scrotum and medial/upper aspects of both thighs are erythematous. R Heel is boggy with non-Blanchable erythema. L Heel is boggy with non-blanchable erythema. DTPI Lateral R Malleolus (L)1.5cm x (W)1cm. Non-Blanchable erythema R Hallux. Distal /lateral L foot/L 5th metatarsal is boggy with non-blanchable erythema. Tx.Plan:Cleanse Skin Tear R arm with Saline. Cover with Versatel One Contact layer drsg. Apply Silvasorb gel. Cover with Optifoam drsg. Change every 7 days and prn. Apply Triad Paste to Rash L upper back daily and prn. Leave open to air. Apply Moisture Barrier Paste to Sacrum. Cover with Optifoam drsg. Change every 3 days and prn. Apply Moisture Barrier Paste to scrotum and Medial/Posterior Aspects fo both Upper thighs with each incontinence care. Reposition at least every 2hours or as tolerated. Off-load heels with pillow. APM/EULALIA Mattress overlay.
--- NOTE | 2020-03-17 16:09 | NUR ---
CASE MANAGEMENT:REVIEW 03/17/20 SI: PNEUMONIA. UTI TRACH/VENT 100.0 109 21 131/83 100% ON VENT SUPPORT W/35% FIO2 WBC+12.8 H/H-9.1/28.4 BUN+46 PHOS-1.5 MAG-1.4 AST/ALT+503/1530 IS: IV KPHOS X1 IV MAG SULFATE Q1HRS X4 IV MEROPENEM Q8HRS CARDIZEM GT Q6HRS IVF@75/HR IV PROTONIX Q12 HEPARIN SQ Q12 : ICU STATUS DCP: FROM [facility]: MONITOR TEMP AND LEUKOCYTOSIS
--- NOTE | 2020-03-17 16:30 | NUR ---
NURSE NOTES: returned from Ct scan, patient tolerated procedure with no distress or episodes of increased heart rate, awaiting for results to post to inform Dr. belle
--- NOTE | 2020-03-17 17:22 | Diagnostic Imaging Report ---
CT HEAD WITHOUT CONTRAST INDICATION: Reason For Exam: [facility] Technique: Continuous helical CT scanning of the head was performed without intravenous contrast material. Axial and coronal 5 mm sections were generated. Radiation dose was minimized using automated exposure control DOSE: Total Dose Length Product - DLP 1018.[address] Dose Index - CTDIvol(s) 53.4 mGy. COMPARISON: None available FINDINGS: There is no acute intracranial hemorrhage or mass effect. There is loss of hernandez-white differentiation the left frontal lobe, with subjacent confluent white matter hypodensity. There is confluent right occipital encephalomalacia with associated exvacuodilatation of the posterior horn of the right lateral ventricle. Old right subinsular white matter infarct is noted. There is a small focus of confluent encephalomalacia in the left posterior parietal lobe. There is dense bilateral basal ganglia calcification. There are patchy periventricular and subcortical white matter hypodensities which can be seen with chronic ischemic microvascular disease. Moderate cortical cerebral volume loss. Large bilateral mastoid effusions, with near complete opacification of the mastoid air cells. Multifocal ethmoid air cell mucosal thickening. There are frothy secretions in the right sphenoid sinus. No depressed calvarial fracture. There are 2 right frontal cranial huan holes. IMPRESSION: 1. Loss of hernandez-white differentiation in the left frontal lobe which may represent subacute or chronic infarct, especially given multifocal encephalomalacia. However, in the absence of comparison imaging, further evaluation with MRI is recommended to exclude acute infarct. 2. Large bilateral mastoid effusions; correlation for mastoiditis is recommended. The CT scanner at [facility] is accredited by the [employer] and the scans are performed using protocols designed to limit radiation exposure to as low as reasonably achievable to attain images of sufficient resolution adequate for diagnostic evaluation.
[2020-03-17] MEDS ORDERED: ACETAMINOP160 MG/5 M GT (17:56)
[2020-03-17] MEDS ORDERED: VITAMIN C250 MG GT (17:56)
--- NOTE | 2020-03-17 17:59 | Consultation ---
History of Present Illness General Date patient seen: Mar 17, 2020 Chief Complaint: Dyspnea/Respdistress Referring physician: Dr. Danielle Reason for Consultation: GNR bacteremia Present Illness HPI This is a very unfortunate 85-year-old male with past medical history of acute on chronic respiratory failure, mechanical ventilator dependence/tracheostomy, previous CVA, hemiplegia, dysphagia, G-tube, gastroparesis, pressure ulcers POA, epilepsy, A. fib sent from [facility] for bradycardia. Patient is nonverbal at baseline. History is limited secondary to patient's clinical status. According to EMS the long-term facility states that patient was found to be bradycardic in the low 40s therefore 911 was called for further evaluation. The patient's symptoms were gradual onset, severity was moderate, duration since unknown amount of time. [place] [facility] [place] noted to have multiple decubitus ulcers and surgery called toe valuate and assist with care. Allergies: Coded Allergies: No Known Allergies (Unverified , 02/11/20) Medication History Scheduled Ascorbic Acid* (Ascorbic Acid*), 250 MG ORAL DAILY, (Reported) Bisacodyl* (Dulcolax*), 5 MG GT DAILY, (Reported) Bisacodyl* (Dulcolax*), 5 MG ORAL DAILY, (Reported) Levetiracetam (Keppra), 15 ML GT TWICE A DAY, (Reported) Levetiracetam (Keppra), 5 ML ORAL DAILY, (Reported) Losartan Potassium* (Losartan Potassium*), 50 MG GT DAILY, (Reported) Losartan Potassium* (Losartan Potassium*), 50 MG ORAL DAILY, (Reported) Metoclopramide Hcl* (Reglan*), 10 MG GT EVERY 6 HOURS, (Reported) Metoclopramide Hcl* (Reglan*), 10 MG ORAL THREE TIMES A DAY, (Reported) Metoprolol Tartrate* (Metoprolol Tartrate*), 50 MG GT BID, (Reported) Metoprolol Tartrate* (Metoprolol Tartrate*), 50 MG ORAL EVERY 12 HOURS, (Reported) Multivitamins* (Multivitamins*), 1 TAB GT DAILY, (Reported) Sennosides (Senokot), 8.6 MG GT BID, (Reported) [Santyl 250unit/gm], Unknown Dose TOPIC DAILY, (Reported) Miscellaneous Medications Multivitamin (Multivitamin), 1 EACH PO, (Reported) Sennosides (Senokot), 8.6 MG PO, (Reported) [Acetaminophen Liquid], 160 MG GT, (Reported) Discontinued Medications Petrolatum,White/Lanolin (Vitamin A & D Ointment), 113 GM TP, (Reported) Discontinued Reason: Pt had allergic rxn Patient History History Provided By: Medical Record, PMD Healthcare decision maker Resuscitation status Advanced Directive on File Past Medical/Surgical History Past Medical/Surgical History: (1) Lactic acidosis (2) Bradycardia (3) Renal failure (4) Shock liver (5) Chronic respiratory failure (6) Hyperkalemia (7) Anemia (8) Electrolyte imbalance (9) Sepsis (10) Shock (11) NSTEMI (non-ST elevated myocardial infarction) (12) Aspiration pneumonia (13) Tracheostomy complication (14) HTN (hypertension) (15) Tracheostomy malfunction (16) NIURKA (acute kidney injury) (17) Renal failure (ARF), acute on chronic (18) Elevated LFTs Review of Systems All Other Systems: negative except mentioned in HPI ROS Narrative limited given medical condition and baseline Physical Exam General Appearance: lethargic, mild distress Lines, tubes and drains: other HEENT: normocephalic, atraumatic Neck: supple, normal inspection, trach, other Respiratory/Chest: no respiratory distress, no accessory muscle use, decreased breath sounds, on vent Cardiovascular/Chest: tachycardia Abdomen: soft, no organomegaly, no mass, feeding tube, other Extremities: inflammation, slow capillary refill Skin Exam: warm/dry Neurologic: unresponsiveness Last 24 Hour Vital Signs Date Time Temp Pulse Resp B/P (MAP) Pulse Ox O2 Delivery O2 Flow Rate FiO2 03/17/20 17:40 88 118/64 03/17/20 17:00 90 16 129/71 (90) 100 03/17/20 16:00 Mechanical Ventilator Mechanical Ventilator 03/17/20 16:00 35 03/17/20 16:00 100.1 98 21 150/97 (114) 100 03/17/20 16:00 79 03/17/20 15:09 81 18 35 03/17/20 15:00 83 18 120/83 (95) 100 03/17/20 14:00 88 17 135/66 (89) 100 12/9/20 13:00 87 20 118/61 (80) 100 03/17/20 12:01 100.0 03/17/20 12:00 102 03/17/20 12:00 100.0 109 21 131/83 (99) 100 03/17/20 12:00 35 03/17/20 12:00 Mechanical Ventilator Mechanical Ventilator 03/17/20 11:48 99 141/80 03/17/20 11:12 111 16 35 03/17/20 11:00 90 18 123/90 (101) 100 03/17/20 10:00 81 16 118/68 (85) 100 03/17/20 09:00 77 17 124/68 (86) 100 03/17/20 08:00 Mechanical Ventilator Mechanical Ventilator 03/17/20 08:00 35 03/17/20 08:00 81 03/17/20 08:00 100.1 82 17 147/69 (95) 100 03/17/20 07:18 81 18 35 03/17/20 07:00 73 16 110/67 (81) 100 03/17/20 06:00 78 15 128/71 (90) 100 03/17/20 05:13 80 136/74 03/17/20 05:00 80 15 136/74 (94) 100 03/17/20 04:00 Mechanical Ventilator Mechanical Ventilator 03/17/20 04:00 35 03/17/20 04:00 75 03/17/20 04:00 97.0 88 17 124/79 (94) 100 03/17/20 03:00 92 15 161/73 (102) 100 03/17/20 02:57 72 15 35 03/17/20 02:00 81 17 144/75 (98) 100 03/17/20 01:00 88 16 121/60 (80) 100 03/17/20 00:55 100.5 03/17/20 00:00 35 03/17/20 00:00 101.7 112 17 125/77 (93) 100 03/17/20 00:00 Mechanical Ventilator Mechanical Ventilator 03/16/20 23:12 111 123/77 03/16/20 23:00 111 18 123/77 (92) 100 03/16/20 22:42 118 19 35 03/16/20 22:00 103 17 122/75 (91) 100 03/16/20 21:00 98 17 142/98 (113) 100 03/16/20 20:00 111 03/16/20 20:00 98.6 97 18 126/67 (86) 100 03/16/20 20:00 Mechanical Ventilator Mechanical Ventilator 03/16/20 19:00 94 20 131/63 (85) 100 03/16/20 18:57 109 17 35 03/16/20 18:00 109 22 122/78 (93) 100 03/16/20 17:55 103 137/74 Intake and Output 03/16/20 03/17/20 19:00 07:00 Intake Total 1600.0 ml 1325.0 ml Output Total 1504 ml 1330 ml Balance 96.0 ml -5.0 ml Intake Free Water 30 ml 50 ml IV Total 910.0 ml 615.0 ml Tube Feeding 660 ml 660 ml Output Urine Total 1504 ml 1330 ml # Bowel Movements 1 Laboratory Tests Test 03/17/20 04:35 White Blood Count 12.8 K/UL (4.8-10.8) H Red Blood Count 2.96 M/UL (4.70-6.10) L Hemoglobin 9.1 G/DL (14.2-18.0) L Hematocrit 28.4 % (42.0-52.0) L Mean Corpuscular Volume 96 FL (80-99) Mean Corpuscular Hemoglobin 30.9 PG (27.0-31.0) Mean Corpuscular Hemoglobin Concent 32.2 G/DL (32.0-36.0) Red Cell Distribution Width 16.1 % (11.6-14.8) H Platelet Count 161 K/UL (150-450) Mean Platelet Volume 9.1 FL (6.5-10.1) Neutrophils (%) (Auto) 78.5 % (45.0-75.0) H Lymphocytes (%) (Auto) 8.7 % (20.0-45.0) L Monocytes (%) (Auto) 6.4 % (1.0-10.0) Eosinophils (%) (Auto) 5.4 % (0.0-3.0) H Basophils (%) (Auto) 1.0 % (0.0-2.0) Sodium Level 145 MMOL/L (136-145) Potassium Level 3.4 MMOL/L (3.5-5.1) L Chloride Level 109 MMOL/L (98-107) H Carbon Dioxide Level 33 MMOL/L (21-32) H Anion Gap 3 mmol/L (5-15) L Blood Urea Nitrogen 46 mg/dL (7-18) H Creatinine 1.1 MG/DL (0.55-1.30) Estimat Glomerular Filtration Rate > 60 mL/min (>60) Glucose Level 119 MG/DL (74-106) H Calcium Level 7.6 MG/DL (8.5-10.1) L Phosphorus Level 1.5 MG/DL (2.5-4.9) L Magnesium Level 1.4 MG/DL (1.8-2.4) L Total Bilirubin 1.3 MG/DL (0.2-1.0) H Direct Bilirubin 1.0 MG/DL (0.0-0.3) H Aspartate Amino Transf (AST/SGOT) 503 U/L (15-37) H Alanine Aminotransferase (ALT/SGPT) 1530 U/L (12-78) H Alkaline Phosphatase 96 U/L (46-116) Total Protein 5.8 G/DL (6.4-8.2) L Albumin 1.7 G/DL (3.4-5.0) L Globulin 4.1 g/dL Albumin/Globulin Ratio 0.4 (1.0-2.7) L Height (Feet): 6 Weight (Pounds): 185 Medications Current Medications Medications (Trade) Dose Ordered Sig/Natalia Route PRN Reason Start Time Stop Time Status Last Admin Dose Admin Acetaminophen (Tylenol) 650 mg Q4H PRN GT Mild Pain 03/17/20 06:15 04/16/20 06:14 Acetaminophen (Tylenol) 650 mg Q4H PRN GT fever 03/17/20 06:30 04/16/20 06:29 03/17/20 10:22 Albuterol/ Ipratropium (Albuterol/ Ipratropium) 3 ml Q6H PRN HHN Shortness of Breath 03/13/20 22:45 03/18/20 22:44 03/16/20 10:23 Bisacodyl (Dulcolax) 10 mg DAILYPRN PRN RECTAL Constipation 03/13/20 22:45 06/11/20 22:44 Chlorhexidine Gluconate (Shirley-Hex 2%) 1 applic DAILY@2000 TOPIC 03/15/20 20:00 06/13/20 19:59 03/16/20 20:09 Clonidine HCl (Catapres Tab) 0.1 mg Q2H PRN ORAL For High Blood Pressure 03/16/20 11:30 06/14/20 11:29 Dextrose 1,000 ml @ 75 mls/hr [id number] IV 03/15/20 10:30 04/14/20 10:29 03/17/20 16:39 Dextrose (Dextrose 50%) 25 ml Q30M PRN IV Hypoglycemia 03/13/20 22:45 06/11/20 22:44 Dextrose (Dextrose 50%) 50 ml Q30M PRN IV Hypoglycemia 03/13/20 22:45 06/11/20 22:44 Diltiazem HCl (Cardizem Tab) 60 mg EVERY 6 HOURS GT 03/16/20 18:00 04/15/20 11:59 03/17/20 17:40 Docusate Sodium (Colace) 100 mg Q12HR ORAL 03/15/20 10:00 04/14/20 09:59 03/17/20 08:54 Enalaprilat (Vasotec) 1.25 mg Q3H PRN IV For High Blood Pressure 03/16/20 11:30 04/15/20 11:29 Heparin Sodium (Porcine) (Heparin 5000 units/ml) 5,000 units EVERY 12 HOURS SUBQ 03/14/20 09:00 04/28/20 08:59 03/17/20 08:54 Meropenem 1 gm/ Sodium Chloride 55 ml @ 110 mls/hr Q8H IVPB 03/17/20 11:00 03/22/20 10:59 03/17/20 17:41 Morphine Sulfate (Morphine Sulfate) 2 mg Q3H PRN IVP Moderate Pain (Pain Scale 4-6) 03/13/20 22:45 03/20/20 22:44 Morphine Sulfate (Morphine Sulfate) 4 mg Q3H PRN IVP Severe Pain (Pain Scale 7-10) 03/13/20 22:45 03/20/20 22:44 03/15/20 20:31 Ondansetron HCl (Zofran) 4 mg Q6H PRN IVP Nausea & Vomiting 03/13/20 22:45 04/12/20 22:44 Pantoprazole (Protonix) 40 mg Q12HR IV 03/14/20 21:00 04/13/20 08:59 03/17/20 08:54 Potassium Phosphate 20 mm/ Sodium Chloride 281.6667 ml @ 46.944 m... ONCE ONCE IV 03/17/20 14:00 03/17/20 19:59 03/17/20 13:53 Assessment/Plan Problem List: (1) Lactic acidosis ICD Codes: E87.2 - Acidosis SNOMED: 04956108 (2) Bradycardia ICD Codes: R00.1 - Bradycardia, unspecified SNOMED: 72843084 (3) Renal failure ICD Codes: N19 - Unspecified kidney failure SNOMED: 28209268 (4) Shock liver ICD Codes: K72.00 - Acute and subacute hepatic failure without coma SNOMED: 969047768 (5) Chronic respiratory failure ICD Codes: J96.10 - Chronic respiratory failure, unspecified whether with hypoxia or hypercapnia SNOMED: 05724735 (6) Hyperkalemia ICD Codes: E87.5 - Hyperkalemia SNOMED: 05016728 (7) Anemia ICD Codes: D64.9 - Anemia, unspecified SNOMED: 452326655 (8) Electrolyte imbalance ICD Codes: E87.8 - Other disorders of electrolyte and fluid balance, not elsewhere classified SNOMED: 299110851 (9) Sepsis Assessment & Plan: leukocytosis anemia shock liver elevated lft's decubitus ulcer respiratory insufficiency decubitus ulcers cont abx local wound care diet as tolerated tf turn q2h wean support s tolerated Pt presented on admission with multiple Skin breakdown.Scattered Senile purpuras both upper extremities. Category 3 Skin Tear R antecubital/R lateral elbow with 100% Flap loss. Base of wound is hallie with scattered Biofilm.. Edges are macerated with surrounding purpura. MASD upper L back. Affected area is reg pink with scattered satellite lesions that mostly dry with Few lesions noted to have small amt sanguineous exudate. Sacral DTPI (L)5.5cm x (W)6.5cm. Base of Pressure Injury is indurated with , Maroon with purpuric area at sacrococcygeal area. Scattered dry plaques noted to L Buttocks. Scrotum and medial/upper aspects of both thighs are erythematous. R Heel is boggy with non-Blanchable erythema. L Heel is boggy with non-blanchable erythema. DTPI Lateral R Malleolus (L)1.5cm x (W)1cm. Non-Blanchable erythema R Hallux. Distal /lateral L foot/L 5th metatarsal is boggy with non-blanchable erythema. Tx.Plan: Cleanse Skin Tear R arm with Saline. Cover with Versatel One Contact layer drsg. Apply Silvasorb gel. Cover with Optifoam drsg. Change every 7 days and prn. Apply Triad Paste to Rash L upper back daily and prn. Leave open to air. Apply Moisture Barrier Paste to Sacrum. Cover with Optifoam drsg. Change every 3 days and prn. Apply Moisture Barrier Paste to scrotum and Medial/Posterior Aspects fo both Upper thighs with each incontinence care. Reposition at least every 2hours or as tolerated. Off-load heels with pillow. APM/EULALIA Mattress overlay. ICD Codes: A41.9 - Sepsis, unspecified organism SNOMED: 33622891 (10) Shock ICD Codes: R57.9 - Shock, unspecified SNOMED: 24145314 (11) NSTEMI (non-ST elevated myocardial infarction) ICD Codes: I21.4 - Non-ST elevation (NSTEMI) myocardial infarction SNOMED: 32969828 (12) Aspiration pneumonia ICD Codes: J69.0 - Pneumonitis due to inhalation of food and vomit SNOMED: 898581347 (13) Tracheostomy complication ICD Codes: J95.00 - Unspecified tracheostomy complication SNOMED: 90914215 (14) HTN (hypertension) ICD Codes: I10 - Essential (primary) hypertension SNOMED: 22164391 (15) Tracheostomy malfunction ICD Codes: J95.03 - Malfunction of tracheostomy stoma SNOMED: 111079001 (16) NIURKA (acute kidney injury) ICD Codes: N17.9 - Acute kidney failure, unspecified SNOMED: 2618943, 26688113 (17) Renal failure (ARF), acute on chronic ICD Codes: N17.9 - Acute kidney failure, unspecified; N18.9 - Chronic kidney disease, unspecified SNOMED: 956353678 (18) Elevated LFTs ICD Codes: R79.89 - Other specified abnormal findings of blood chemistry SNOMED: 861905315, 179271193 Yousuf Samayoa Mar 17, 2020 17:58
[2020-03-17] MEDS ORDERED: PRO-STAT LIQUID30 ML GT (18:00)
[2020-03-17] MEDS ORDERED: VITAMIN A & D113 GM TP (18:00)
[2020-03-17] MEDS ORDERED: [UNRECOGNIZED DRUG - OTHER] TP (18:09)
--- NOTE | 2020-03-17 18:40 | NUR ---
NURSE NOTES: Dr. Brown informed of Ct scan, no new orders given at this time, continue to monitor patient.
--- NOTE | 2020-03-17 19:19 | NUR ---
NURSE NOTES: Received patient from Matias ALCARAZ. Patient is in bed obtunded. Afib on the monitor HR 80s-90s. Trach to vent AC 14 TV 500 FiO2 35% PEEP 5, tolerating well saturation 100%. Gtube and tube feeding running glucerna 1.5 @55ml/hr. aggarwal catheter draining well to gravity. bed to lowest position and locked, call light within easy reach. Will continue plan of care.
--- NOTE | 2020-03-17 19:24 | NUR ---
NURSE HAND-OFF REPORT: Latest Vital Signs: Temperature 100.1 , Pulse 94 , B/P 129 /75 , Respiratory Rate 18 , O2 SAT 100 , Mechanical Ventilator, O2 Flow Rate 40.0 . Vital Sign Comment: EKG Rhythm: Atrial Fibrillation Rhythm change?: N MD Notified?: MD Response: Latest Wall Fall Score: 75 Fall Risk: High Risk Safety Measures: Call light Within Reach, Bed Alarm Zone 3, Side Rails Side Rails x3, Bed position Low and Locked. Fall Precautions: Yellow Socks Yellow Gown Door Sign Patient Fall Education Report given to LISSA Tate.
[2020-03-17] MEDS: Dyna-Hex 2% Top Sol 2oz TOPIC SCH (20:13)
--- NOTE | 2020-03-17 21:38 | Neurology Progress Note ---
Interim History Interim History ROS Limited/Unobtainable: Yes Interim History ct brain noted with old strokes, no hemorrhage remains somnolent, not following Objective Physical Exam Last Vital Signs Date Time Temp Pulse Resp B/P (MAP) Pulse Ox O2 Delivery O2 Flow Rate FiO2 03/17/20 21:00 86 17 144/83 (103) 100 03/17/20 20:00 35 03/17/20 20:00 98.5 03/17/20 20:00 Mechanical Ventilator Mechanical Ventilator 03/15/20 03:51 40.0 Laboratory Tests Test 03/17/20 04:35 White Blood Count 12.8 K/UL (4.8-10.8) H Red Blood Count 2.96 M/UL (4.70-6.10) L Hemoglobin 9.1 G/DL (14.2-18.0) L Hematocrit 28.4 % (42.0-52.0) L Mean Corpuscular Volume 96 FL (80-99) Mean Corpuscular Hemoglobin 30.9 PG (27.0-31.0) Mean Corpuscular Hemoglobin Concent 32.2 G/DL (32.0-36.0) Red Cell Distribution Width 16.1 % (11.6-14.8) H Platelet Count 161 K/UL (150-450) Mean Platelet Volume 9.1 FL (6.5-10.1) Neutrophils (%) (Auto) 78.5 % (45.0-75.0) H Lymphocytes (%) (Auto) 8.7 % (20.0-45.0) L Monocytes (%) (Auto) 6.4 % (1.0-10.0) Eosinophils (%) (Auto) 5.4 % (0.0-3.0) H Basophils (%) (Auto) 1.0 % (0.0-2.0) Sodium Level 145 MMOL/L (136-145) Potassium Level 3.4 MMOL/L (3.5-5.1) L Chloride Level 109 MMOL/L (98-107) H Carbon Dioxide Level 33 MMOL/L (21-32) H Anion Gap 3 mmol/L (5-15) L Blood Urea Nitrogen 46 mg/dL (7-18) H Creatinine 1.1 MG/DL (0.55-1.30) Estimat Glomerular Filtration Rate > 60 mL/min (>60) Glucose Level 119 MG/DL (74-106) H Calcium Level 7.6 MG/DL (8.5-10.1) L Phosphorus Level 1.5 MG/DL (2.5-4.9) L Magnesium Level 1.4 MG/DL (1.8-2.4) L Total Bilirubin 1.3 MG/DL (0.2-1.0) H Direct Bilirubin 1.0 MG/DL (0.0-0.3) H Aspartate Amino Transf (AST/SGOT) 503 U/L (15-37) H Alanine Aminotransferase (ALT/SGPT) 1530 U/L (12-78) H Alkaline Phosphatase 96 U/L (46-116) Total Protein 5.8 G/DL (6.4-8.2) L Albumin 1.7 G/DL (3.4-5.0) L Globulin 4.1 g/dL Albumin/Globulin Ratio 0.4 (1.0-2.7) L Neurologic Exam Mental Status: awake Objective somnolent open eyes, agitated right sided parkinsonism, withdraws all 4. 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 parkinsonism on exam ,likely vascular icu monitoring map >65 cards following cont atb cont heparin eeg no seizures ct brain noted. Winston Brown MD Mar 17, 2020 21:38
--- NOTE | 2020-03-17 22:01 | NUR ---
NURSE NOTES: repositioned patient. axillary temp 99.3, HR 80s-90s
--- NOTE | 2020-03-17 23:05 | NUR ---
NURSE NOTES: Transferred patient to SDU accompanied by 2 RNs and RT. vital signs stable. no acute distress. orders transferred. Gave report to LISSA James
--- NOTE | 2020-03-17 23:05 | NUR ---
NURSE NOTES: Received report from Erasmo/ LISSA Tate. Pt is stable, with no VS. Trach to vent with setting as ordered. No pain noted. With Left femoral attainable and flushing. intact and patent. Skin check done. Assessment done. With aggarwal cath draining yellow urine. Bed in lowest position. Call light within reach. Continue to plan of care.
[2020-03-18] VITALS: BP 128/66
[2020-03-18] MEDS: dilTIAZem HCl 60mg tab GT SCH ×2 (00:07→05:23)
[2020-03-18] MEDS: Meropenem 1 GM in NS 55 ML IVPB SCH ×3 (02:53→18:19)
--- NOTE | 2020-03-18 03:43 | NUR ---
NURSE NOTES: Cleaned pt, repositioned pt per protocol. Not in respiratory distress. Continue to plan of care.
[2020-03-18 04:00] VITALS: BP 144/84
[2020-03-18 05:47] LABS: HEMATOCRIT 29.7 % (42.0-52.0); HEMOGLOBIN 9.6 G/DL (14.2-18.0); MEAN CORPUSCULAR VOLUME 96 FL (80-99); PLATELET COUNT 160 K/UL (150-450); RED BLOOD COUNT 3.11 M/UL (4.70-6.10); RED CELL DISTRIBUTION WIDTH 16.6 % (11.6-14.8); WHITE BLOOD COUNT 14.8 K/UL (4.8-10.8)
--- NOTE | 2020-03-18 06:09 | NUR ---
NURSE NOTES: seen pt sleeping in bed with no signs of respiratory distress. O2 sat- 100%. No pain noted. Continue to plan of care.
[2020-03-18 06:54] LABS: % IRON SATURATION 16 % (15-50); IRON 33 ug/dL (50-175); TOTAL IRON BINDING CAPACITY 202 ug/dL (250-450)
[2020-03-18 07:07] LABS: ALANINE AMINOTRANSFERASE 941 U/L (12-78); ALBUMIN 1.8 G/DL (3.4-5.0); ALBUMIN/GLOBULIN RATIO 0.4 (1.0-2.7); ALKALINE PHOSPHATASE 91 U/L (46-116); ANION GAP 3 mmol/L (5-15); ASPARTATE AMINO TRANSFERASE 215 U/L (15-37); BILIRUBIN,TOTAL 1.5 MG/DL (0.2-1.0); BLOOD UREA NITROGEN 32 mg/dL (7-18); CALCIUM 7.7 MG/DL (8.5-10.1); CARBON DIOXIDE 32 MMOL/L (21-32); CHLORIDE 104 MMOL/L (98-107); CREATININE 0.8 MG/DL (0.55-1.30); POTASSIUM 3.7 MMOL/L (3.5-5.1); SODIUM 139 MMOL/L (136-145)
--- NOTE | 2020-03-18 07:10 | NUR ---
NURSE HAND-OFF REPORT: Important Events on Shift: Downgraded from ICU, Episode of Aflutter- non sustained EKG done its AFIB. Patient Status: Guarding/ Stable Diet: GTF Pending Orders: None Pending Results/Labs: None Pending MD notification: None Latest Vital Signs: Temperature 97.6 , Pulse 110 , B/P 132 /83 , Respiratory Rate 19 , O2 SAT 100 , Mechanical Ventilator, O2 Flow Rate 40.0 . Vital Sign Comment: WNL EKG Rhythm: Afib/Aflutter Rhythm change?: N MD Notified?: Y - Dr Jhonny RICARDO Response: pt now on cardizem gtt Latest Wall Fall Score: 75 Fall Risk: High Risk Safety Measures: Call light Within Reach, Bed Alarm Zone 3, Side Rails Side Rails x3, Bed position Low and Locked. Fall Precautions: Yellow Socks Yellow Gown Door Sign Patient Fall Education Report given to [LISSA Mary].
--- NOTE | 2020-03-18 07:10 | NUR ---
NURSE NOTES: Received report from LISSA James. Pt is lying in bed, not in cardio-pulmonary distress. Vital signs are stable. Tolerating vent setting of AC 14, TV 500, FiO2 35%, PEEP 5 saturating 99%. G-tube is intact and patent running Glucerna 1.5 @ 55cc/hr. Left femoral TLC is intact and patent. Johnson catheter is intact and patent draining yellowish urine. Bed is locked and in lowest position, bed alarm on, call light is within reach. Will continue to monitor pt. Will continue with the plan of care.
[2020-03-18 07:17] LABS: BILIRUBIN,DIRECT 0.9 MG/DL (0.0-0.3)
[2020-03-18 08:00] VITALS: BP 133/88
--- NOTE | 2020-03-18 08:26 | Infectious Diseases Prog Note ---
Assessment/Plan 85yo M with: Afebrile Leukocytosis to 21, improved GNR bacteremia most likely 2/2 UTI Obstructive uropathy s/p drainage w/ aggarwal 03/13 BCx +P.mirabilis (S-CTX) UCx +ESBL E.coli and ESBL P.mirabilis COVID rapid Ag neg CXR: BL pna Abd US neg 03/15 Resp cx p ?Mastoiditis, regardless on course of meropenem 03/17 CTH: 1. Loss of hernandez-white differentiation in the left frontal lobe which may represent subacute or chronic infarct, especially given multifocal encephalomalacia. However, in the absence of comparison imaging, further evaluation with MRI is recommended to exclude acute infarct. 2. Large bilateral mastoid effusions; correlation for mastoiditis is recommended. NIURKA, improving Elevated LFTs - AST 1858 / ALT 3987 >> improving Acute hep panel neg Acute on chronic resp failure S/p trach/PEG, vent dependent Prior CVA Hemiplegia Dysphagia Gastroparesis Pressure ulcers Nonverbal SNF resident Plan: Cont meropenem #2/ to cover for ESBL UTI and bacteremia. Plan for 7 days of meropenem then stop and monitor off abx. On discharge can transition to ertapenem 1g IV daily to complete course D/w wound back, skin breakdown on backside does not look infected, continue to keep skin dry and offload pressure to encourage healing F/u 03/15 resp cx Trend WBC, improving 03/17 SP Zosyn #3 03/16 SP vanco #2 empiric Monitor CBC/CMP Monitor resp status Monitor temp curve, hemodynamics D/w RN Thank you for this consult. [facility] will continue to follow. Subjective Allergies: Coded Allergies: No Known Allergies (Unverified , 02/11/20) AF, Tmax 100.1 WBC 14, stable LFTs improving NAD on vent 35% PEEP 5 Objective Last 24 Hour Vital Signs Date Time Temp Pulse Resp B/P (MAP) Pulse Ox O2 Delivery O2 Flow Rate FiO2 03/18/20 05:23 110 132/83 03/18/20 04:00 80 03/18/20 04:00 Mechanical Ventilator Mechanical Ventilator 03/18/20 04:00 97.6 96 19 144/84 (104) 100 03/18/20 04:00 35 03/18/20 02:17 77 15 35 03/18/20 00:07 86 152/99 12/10/20 00:00 Mechanical Ventilator Mechanical Ventilator 03/18/20 00:00 98.2 86 20 128/66 (86) 100 03/18/20 00:00 92 03/18/20 00:00 35 03/17/20 23:35 97.9 97 16 152/99 (116) 100 03/17/20 22:34 72 16 35 03/17/20 22:00 84 15 139/66 (90) 100 03/17/20 21:00 86 17 144/83 (103) 100 03/17/20 20:00 35 03/17/20 20:00 98.5 80 16 133/82 (99) 100 03/17/20 20:00 86 03/17/20 20:00 Mechanical Ventilator Mechanical Ventilator 03/17/20 19:15 94 18 35 03/17/20 19:00 85 16 129/75 (93) 100 03/17/20 18:00 102 19 137/91 (106) 100 03/17/20 17:40 88 118/64 03/17/20 17:00 90 16 129/71 (90) 100 03/17/20 16:00 Mechanical Ventilator Mechanical Ventilator 03/17/20 16:00 35 03/17/20 16:00 100.1 98 21 150/97 (114) 100 03/17/20 16:00 79 03/17/20 15:09 81 18 35 03/17/20 15:00 83 18 120/83 (95) 100 03/17/20 14:00 88 17 135/66 (89) 100 03/17/20 13:00 87 20 118/61 (80) 100 03/17/20 12:01 100.0 03/17/20 12:00 102 03/17/20 12:00 100.0 109 21 131/83 (99) 100 03/17/20 12:00 35 03/17/20 12:00 Mechanical Ventilator Mechanical Ventilator 03/17/20 11:48 99 141/80 03/17/20 11:12 111 16 35 03/17/20 11:00 90 18 123/90 (101) 100 03/17/20 10:00 81 16 118/68 (85) 100 03/17/20 09:00 77 17 124/68 (86) 100 Height (Feet): 6 Weight (Pounds): 185 Gen: NAD in bed HEENT: NCAT +trach CV: RRR Pulm: CTAB Abd: Soft, NTND Ext: No c/c/e Neuro: Sleeping Microbiology Date/Time Source Procedure Growth Status 03/15/20 12:45 Sputum Gram Stain - Final Resulted 03/15/20 12:45 Sputum Sputum Culture Pending Resulted Laboratory Tests Test 03/18/20 04:00 White Blood Count 14.8 K/UL (4.8-10.8) H Red Blood Count 3.11 M/UL (4.70-6.10) L Hemoglobin 9.6 G/DL (14.2-18.0) L Hematocrit 29.7 % (42.0-52.0) L Mean Corpuscular Volume 96 FL (80-99) Mean Corpuscular Hemoglobin 31.0 PG (27.0-31.0) Mean Corpuscular Hemoglobin Concent 32.3 G/DL (32.0-36.0) Red Cell Distribution Width 16.6 % (11.6-14.8) H Platelet Count 160 K/UL (150-450) Mean Platelet Volume 8.9 FL (6.5-10.1) Neutrophils (%) (Auto) % (45.0-75.0) Lymphocytes (%) (Auto) % (20.0-45.0) Monocytes (%) (Auto) % (1.0-10.0) Eosinophils (%) (Auto) % (0.0-3.0) Basophils (%) (Auto) % (0.0-2.0) Neutrophils % (Manual) Pending Lymphocytes % (Manual) Pending Platelet Estimate Pending Platelet Morphology Pending Sodium Level 139 MMOL/L (136-145) Potassium Level 3.7 MMOL/L (3.5-5.1) Chloride Level 104 MMOL/L (98-107) Carbon Dioxide Level 32 MMOL/L (21-32) Anion Gap 3 mmol/L (5-15) L Blood Urea Nitrogen 32 mg/dL (7-18) H Creatinine 0.8 MG/DL (0.55-1.30) Estimat Glomerular Filtration Rate > 60 mL/min (>60) Glucose Level 109 MG/DL (74-106) H Calcium Level 7.7 MG/DL (8.5-10.1) L Iron Level 33 ug/dL (50-175) L Total Iron Binding Capacity 202 ug/dL (250-450) L Percent Iron Saturation 16 % (15-50) Unsaturated Iron Binding 169 ug/dL (112-346) Total Bilirubin 1.5 MG/DL (0.2-1.0) H Direct Bilirubin 0.9 MG/DL (0.0-0.3) H Aspartate Amino Transf (AST/SGOT) 215 U/L (15-37) H Alanine Aminotransferase (ALT/SGPT) 941 U/L (12-78) H Alkaline Phosphatase 91 U/L (46-116) Total Protein 6.2 G/DL (6.4-8.2) L Albumin 1.8 G/DL (3.4-5.0) L Globulin 4.4 g/dL Albumin/Globulin Ratio 0.4 (1.0-2.7) L Current Medications Medications (Trade) Dose Ordered Sig/Natalia Route PRN Reason Start Time Stop Time Status Last Admin Dose Admin Acetaminophen (Tylenol) 650 mg Q4H PRN GT Mild Pain 03/17/20 06:15 04/16/20 06:14 Acetaminophen (Tylenol) 650 mg Q4H PRN GT fever 03/17/20 06:30 04/16/20 06:29 03/17/20 10:22 Albuterol/ Ipratropium (Albuterol/ Ipratropium) 3 ml Q6H PRN HHN Shortness of Breath 03/13/20 22:45 03/18/20 22:44 03/16/20 10:23 Bisacodyl (Dulcolax) 10 mg DAILYPRN PRN RECTAL Constipation 03/13/20 22:45 06/11/20 22:44 Chlorhexidine Gluconate (Shirley-Hex 2%) 1 applic DAILY@2000 TOPIC 03/15/20 20:00 06/13/20 19:59 03/17/20 20:13 Clonidine HCl (Catapres Tab) 0.1 mg Q2H PRN ORAL For High Blood Pressure 03/16/20 11:30 06/14/20 11:29 Dextrose 1,000 ml @ 75 mls/hr [id number] IV 03/15/20 10:30 04/14/20 10:29 03/18/20 04:25 Dextrose (Dextrose 50%) 25 ml Q30M PRN IV Hypoglycemia 03/13/20 22:45 06/11/20 22:44 Dextrose (Dextrose 50%) 50 ml Q30M PRN IV Hypoglycemia 03/13/20 22:45 06/11/20 22:44 Diltiazem HCl (Cardizem Tab) 60 mg EVERY 6 HOURS GT 03/16/20 18:00 04/15/20 11:59 03/18/20 05:23 Docusate Sodium (Colace) 100 mg Q12HR ORAL 03/15/20 10:00 04/14/20 09:59 03/17/20 20:14 Enalaprilat (Vasotec) 1.25 mg Q3H PRN IV For High Blood Pressure 03/16/20 11:30 04/15/20 11:29 Heparin Sodium (Porcine) (Heparin 5000 units/ml) 5,000 units EVERY 12 HOURS SUBQ 03/14/20 09:00 04/28/20 08:59 03/17/20 20:14 Meropenem 1 gm/ Sodium Chloride 55 ml @ 110 mls/hr Q8H IVPB 03/17/20 11:00 03/22/20 10:59 03/18/20 02:53 Morphine Sulfate (Morphine Sulfate) 2 mg Q3H PRN IVP Moderate Pain (Pain Scale 4-6) 03/13/20 22:45 03/20/20 22:44 Morphine Sulfate (Morphine Sulfate) 4 mg Q3H PRN IVP Severe Pain (Pain Scale 7-10) 03/13/20 22:45 03/20/20 22:44 03/15/20 20:31 Ondansetron HCl (Zofran) 4 mg Q6H PRN IVP Nausea & Vomiting 03/13/20 22:45 04/12/20 22:44 Pantoprazole (Protonix) 40 mg Q12HR IV 03/14/20 21:00 04/13/20 08:59 03/17/20 20:14 Carmen Hines M.D. Mar 18, 2020 08:26
--- NOTE | 2020-03-18 08:32 | General Progress Note ---
Subjective ROS Limited/Unobtainable: No Allergies: Coded Allergies: No Known Allergies (Unverified , 02/11/20) Objective Last 24 Hour Vital Signs Date Time Temp Pulse Resp B/P (MAP) Pulse Ox O2 Delivery O2 Flow Rate FiO2 03/18/20 05:23 110 132/83 03/18/20 04:00 80 03/18/20 04:00 Mechanical Ventilator Mechanical Ventilator 03/18/20 04:00 97.6 96 19 144/84 (104) 100 03/18/20 04:00 35 03/18/20 02:17 77 15 35 03/18/20 00:07 86 152/99 03/18/20 00:00 Mechanical Ventilator Mechanical Ventilator 03/18/20 00:00 98.2 86 20 128/66 (86) 100 03/18/20 00:00 92 03/18/20 00:00 35 03/17/20 23:35 97.9 97 16 152/99 (116) 100 03/17/20 22:34 72 16 35 03/17/20 22:00 84 15 139/66 (90) 100 03/17/20 21:00 86 17 144/83 (103) 100 03/17/20 20:00 35 03/17/20 20:00 98.5 80 16 133/82 (99) 100 03/17/20 20:00 86 03/17/20 20:00 Mechanical Ventilator Mechanical Ventilator 03/17/20 19:15 94 18 35 03/17/20 19:00 85 16 129/75 (93) 100 03/17/20 18:00 102 19 137/91 (106) 100 03/17/20 17:40 88 118/64 03/17/20 17:00 90 16 129/71 (90) 100 03/17/20 16:00 Mechanical Ventilator Mechanical Ventilator 03/17/20 16:00 35 03/17/20 16:00 100.1 98 21 150/97 (114) 100 03/17/20 16:00 79 03/17/20 15:09 81 18 35 03/17/20 15:00 83 18 120/83 (95) 100 03/17/20 14:00 88 17 135/66 (89) 100 03/17/20 13:00 87 20 118/61 (80) 100 03/17/20 12:01 100.0 03/17/20 12:00 102 03/17/20 12:00 100.0 109 21 131/83 (99) 100 03/17/20 12:00 35 03/17/20 12:00 Mechanical Ventilator Mechanical Ventilator 03/17/20 11:48 99 141/80 03/17/20 11:12 111 16 35 03/17/20 11:00 90 18 123/90 (101) 100 03/17/20 10:00 81 16 118/68 (85) 100 03/17/20 09:00 77 17 124/68 (86) 100 l Intake and Output 03/17/20 03/18/20 19:00 07:00 Intake Total 2584.720 ml 1520 ml Output Total 1030 ml 1390 ml Balance 1554.720 ml 130 ml Intake Free Water 150 ml 110 ml IV Total 1744.720 ml 860 ml Tube Feeding 660 ml 550 ml Other 30 ml Output Urine Total 1030 ml 1390 ml # Bowel Movements 2 Laboratory Tests 03/18/20 04:00: White Blood Count 14.8H, Red Blood Count 3.11L, Hemoglobin 9.6L, Hematocrit 29.7L, Mean Corpuscular Volume 96, Mean Corpuscular Hemoglobin 31.0, Mean Corpuscular Hemoglobin Concent 32.3, Red Cell Distribution Width 16.6H, Platelet Count 160, Mean Platelet Volume 8.9, Neutrophils (%) (Auto) , Lymphocytes (%) (Auto) , Monocytes (%) (Auto) , Eosinophils (%) (Auto) , Basophils (%) (Auto) , Neutrophils % (Manual) [Pending], Lymphocytes % (Manual) [Pending], Platelet Estimate [Pending], Platelet Morphology [Pending], Sodium Level 139, Potassium Level 3.7, Chloride Level 104, Carbon Dioxide Level 32, Anion Gap 3L, Blood Urea Nitrogen 32H, Creatinine 0.8, Estimat Glomerular Filtration Rate > 60, Glucose Level 109H, Calcium Level 7.7L, Iron Level 33L, Total Iron Binding Capacity 202L , Percent Iron Saturation 16, Unsaturated Iron Binding 169, Total Bilirubin 1.5H , Direct Bilirubin 0.9H, Aspartate Amino Transf (AST/SGOT) 215H, Alanine Aminotransferase (ALT/SGPT) 941H, Alkaline Phosphatase 91, Total Protein 6.2L, Albumin 1.8L, Globulin 4.4, Albumin/Globulin Ratio 0.4L Height (Feet): 6 Weight (Pounds): 185 General Appearance: no apparent distress EENT: normal ENT inspection Neck: supple Cardiovascular: normal rate Respiratory/Chest: decreased breath sounds Abdomen: normal bowel sounds, non tender, soft Extremities: non-tender Assessment/Plan Problem List: (1) Elevated LFTs ICD Codes: R79.89 - Other specified abnormal findings of blood chemistry SNOMED: 484705136, 117358457 (2) HTN (hypertension) ICD Codes: I10 - Essential (primary) hypertension SNOMED: 21941873 (3) Tracheostomy complication ICD Codes: J95.00 - Unspecified tracheostomy complication SNOMED: 15433683 (4) Anemia ICD Codes: D64.9 - Anemia, unspecified SNOMED: 369566981 (5) Shock liver ICD Codes: K72.00 - Acute and subacute hepatic failure without coma SNOMED: 740227587 Status: unchanged Assessment/Plan: abd ua reviewed LFTS improving hepatitis panel neg repeat LFTS in am anemia work up \ GTF monitor for residuals Velasquez Donahue MD Mar 18, 2020 08:32
[2020-03-18] MEDS: Pantoprazole Inj IV SCH ×2 (09:06→21:05)
[2020-03-18] MEDS: Docusate 100mg/10ml Liq ORAL SCH ×2 (09:06→21:05)
[2020-03-18] MEDS: Heparin 5000 units/ml inj SUBQ SCH ×2 (09:07→21:11)
--- NOTE | 2020-03-18 10:10 | NUR ---
NURSE NOTES: Pt's heart rate increase to 130s. Dr. Barry aware. Dr. Barry increase the dose of Cardizem. Temperature taken 99.7*F sponge bath, cold compress done. Pt is grimacing. Tylenol for mild pain given. Will continue to closely monitor pt.
--- NOTE | 2020-03-18 10:17 | Cardiac Electrophysiology PN ---
Assessment/Plan Assessment/Plan 1. Profound bradycardia, heart rate dropping to 20s associated with hypotension due to the hyperkalemia and metoprolol. The metoprolol has been discontinued and the patient received atropine and hyperkalemia was treated. Currently, he is not bradycardic despite Cardizem. 2. Troponin elevation 0.2, 0.4, 0.2, likely due to demand ischemia in this patient with severe sepsis and septic shock. EF 55% 3. Initial hypotension and shock. Likely due to sepsis. White count is improving and the patient is now off both Levophed and dopamine. 4. Hypertension. Within 24 hours, his blood pressure improved from 70 to 200s. Cannot use NNAMDI inhibitor or angiotensin-receptor blockers in view of hyperkalemia and acute renal failure either. On Cardizem and prn vasotec and clonidine 5. Atrial fib with RVR. On Cardizem 60 GT q 6hr. Will increase to 90 q 8 6. Ventilator-dependent respiratory failure, status post tracheostomy. 7. Dysphagia, status post PEG placement. 8. CVA with hemiplegia. 9. Pressure ulcers. 10. Anemia. 11. Shock liver. 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 Troponins flat and low Off Cardizem 60 q 6 via PEG but tachy again Objective Last 24 Hour Vital Signs Date Time Temp Pulse Resp B/P (MAP) Pulse Ox O2 Delivery O2 Flow Rate FiO2 03/18/20 08:00 98.8 103 19 133/88 (103) 100 03/18/20 08:00 Mechanical Ventilator Mechanical Ventilator 03/18/20 08:00 35 03/18/20 05:23 110 132/83 03/18/20 04:00 80 03/18/20 04:00 Mechanical Ventilator Mechanical Ventilator 03/18/20 04:00 97.6 96 19 144/84 (104) 100 03/18/20 04:00 35 03/18/20 02:17 77 15 35 03/18/20 00:07 86 152/99 03/18/20 00:00 Mechanical Ventilator Mechanical Ventilator 03/18/20 00:00 98.2 86 20 128/66 (86) 100 03/18/20 00:00 92 03/18/20 00:00 35 03/17/20 23:35 97.9 97 16 152/99 (116) 100 03/17/20 22:34 72 16 35 03/17/20 22:00 84 15 139/66 (90) 100 03/17/20 21:00 86 17 144/83 (103) 100 03/17/20 20:00 35 03/17/20 20:00 98.5 80 16 133/82 (99) 100 03/17/20 20:00 86 03/17/20 20:00 Mechanical Ventilator Mechanical Ventilator 03/17/20 19:15 94 18 35 03/17/20 19:00 85 16 129/75 (93) 100 03/17/20 18:00 102 19 137/91 (106) 100 03/17/20 17:40 88 118/64 03/17/20 17:00 90 16 129/71 (90) 100 03/17/20 16:00 Mechanical Ventilator Mechanical Ventilator 03/17/20 16:00 35 03/17/20 16:00 100.1 98 21 150/97 (114) 100 03/17/20 16:00 79 03/17/20 15:09 81 18 35 03/17/20 15:00 83 18 120/83 (95) 100 03/17/20 14:00 88 17 135/66 (89) 100 03/17/20 13:00 87 20 118/61 (80) 100 03/17/20 12:01 100.0 03/17/20 12:00 102 03/17/20 12:00 100.0 109 21 131/83 (99) 100 03/17/20 12:00 35 03/17/20 12:00 Mechanical Ventilator Mechanical Ventilator 03/17/20 11:48 99 141/80 03/17/20 11:12 111 16 35 03/17/20 11:00 90 18 123/90 (101) 100 Intake and Output 03/17/20 03/18/20 19:00 07:00 Intake Total 2584.720 ml 1520 ml Output Total 1030 ml 1390 ml Balance 1554.720 ml 130 ml Intake Free Water 150 ml 110 ml IV Total 1744.720 ml 860 ml Tube Feeding 660 ml 550 ml Other 30 ml Output Urine Total 1030 ml 1390 ml # Bowel Movements 2 Laboratory Tests Test 03/18/20 04:00 White Blood Count 14.8 K/UL (4.8-10.8) H Red Blood Count 3.11 M/UL (4.70-6.10) L Hemoglobin 9.6 G/DL (14.2-18.0) L Hematocrit 29.7 % (42.0-52.0) L Mean Corpuscular Volume 96 FL (80-99) Mean Corpuscular Hemoglobin 31.0 PG (27.0-31.0) Mean Corpuscular Hemoglobin Concent 32.3 G/DL (32.0-36.0) Red Cell Distribution Width 16.6 % (11.6-14.8) H Platelet Count 160 K/UL (150-450) Mean Platelet Volume 8.9 FL (6.5-10.1) Neutrophils (%) (Auto) % (45.0-75.0) Lymphocytes (%) (Auto) % (20.0-45.0) Monocytes (%) (Auto) % (1.0-10.0) Eosinophils (%) (Auto) % (0.0-3.0) Basophils (%) (Auto) % (0.0-2.0) Differential Total Cells Counted 100 Neutrophils % (Manual) 69 % (45-75) Lymphocytes % (Manual) 8 % (20-45) L Monocytes % (Manual) 5 % (1-10) Eosinophils % (Manual) 18 % (0-3) H Basophils % (Manual) 0 % (0-2) Band Neutrophils 0 % (0-8) Platelet Estimate Adequate Platelet Morphology Normal Hypochromasia 1+ Anisocytosis 1+ Sodium Level 139 MMOL/L (136-145) Potassium Level 3.7 MMOL/L (3.5-5.1) Chloride Level 104 MMOL/L (98-107) Carbon Dioxide Level 32 MMOL/L (21-32) Anion Gap 3 mmol/L (5-15) L Blood Urea Nitrogen 32 mg/dL (7-18) H Creatinine 0.8 MG/DL (0.55-1.30) Estimat Glomerular Filtration Rate > 60 mL/min (>60) Glucose Level 109 MG/DL (74-106) H Calcium Level 7.7 MG/DL (8.5-10.1) L Phosphorus Level Pending Magnesium Level Pending Iron Level 33 ug/dL (50-175) L Total Iron Binding Capacity 202 ug/dL (250-450) L Percent Iron Saturation 16 % (15-50) Unsaturated Iron Binding 169 ug/dL (112-346) Total Bilirubin 1.5 MG/DL (0.2-1.0) H Direct Bilirubin 0.9 MG/DL (0.0-0.3) H Aspartate Amino Transf (AST/SGOT) 215 U/L (15-37) H Alanine Aminotransferase (ALT/SGPT) 941 U/L (12-78) H Alkaline Phosphatase 91 U/L (46-116) Total Protein 6.2 G/DL (6.4-8.2) L Albumin 1.8 G/DL (3.4-5.0) L Globulin 4.4 g/dL Albumin/Globulin Ratio 0.4 (1.0-2.7) L Microbiology Date/Time Source Procedure Growth Status 03/15/20 12:45 Sputum Gram Stain - Final Resulted 03/15/20 12:45 Sputum Culture - Preliminary Gram Negative Bacillus 1 Gram Negative Bacillus 2 Resulted Objective HEAD AND NECK: No JVD. Status post tracheostomy. LUNGS: Coarse rhonchi. CARDIOVASCULAR: Regular S1 and S2 with no gallop. ABDOMEN: Status post G-tube. EXTREMITIES: 1+ pitting edema. Liang Barry MD Mar 18, 2020 10:17
[2020-03-18 10:28] LABS: PHOSPHORUS 2.1 MG/DL (2.5-4.9)
[2020-03-18] MEDS: dilTIAZem HCl 90mg tab GT SCH ×2 (11:27→21:06)
[2020-03-18 12:00] VITALS: BP 121/53
[2020-03-18] MEDS ORDERED: Lidocaine 1% Plain 30 ml INJ PRN (12:15)
[2020-03-18] MEDS ORDERED: Heparin1,000 units/500ml Premix(Conc:2 units/ml) IV PRN (12:15)
[2020-03-18] MEDS ORDERED: Potassium Phosphate 20 MM in NS 275 ML IV ONE (12:30)
--- NOTE | 2020-03-18 12:56 | Pulmonology Progress Note ---
Subjective ROS Limited/Unobtainable: No Interval Events: None new reported Constitutional: Reports: no symptoms HEENT: Repors: no symptoms Respiratory: Reports: no symptoms Cardiovascular: Reports: no symptoms Gastrointestinal/Abdominal: Reports: no symptoms Genitourinary: Reports: no symptoms Allergies: Coded Allergies: No Known Allergies (Unverified , 02/11/20) All Systems: reviewed and negative except above Objective Last 24 Hour Vital Signs Date Time Temp Pulse Resp B/P (MAP) Pulse Ox O2 Delivery O2 Flow Rate FiO2 03/18/20 12:00 99.3 103 20 121/53 (75) 100 03/18/20 12:00 35 03/18/20 12:00 105 03/18/20 12:00 Mechanical Ventilator Mechanical Ventilator 03/18/20 11:27 115 140/83 03/18/20 08:00 98.8 103 19 133/88 (103) 100 03/18/20 08:00 Mechanical Ventilator Mechanical Ventilator 03/18/20 08:00 35 03/18/20 07:44 83 03/18/20 05:23 110 132/83 03/18/20 04:00 80 03/18/20 04:00 Mechanical Ventilator Mechanical Ventilator 03/18/20 04:00 97.6 96 19 144/84 (104) 100 03/18/20 04:00 35 03/18/20 02:17 77 15 35 03/18/20 00:07 86 152/99 03/18/20 00:00 Mechanical Ventilator Mechanical Ventilator 03/18/20 00:00 98.2 86 20 128/66 (86) 100 03/18/20 00:00 92 03/18/20 00:00 35 03/17/20 23:35 97.9 97 16 152/99 (116) 100 03/17/20 22:34 72 16 35 03/17/20 22:00 84 15 139/66 (90) 100 03/17/20 21:00 86 17 144/83 (103) 100 03/17/20 20:00 35 03/17/20 20:00 98.5 80 16 133/82 (99) 100 03/17/20 20:00 86 03/17/20 20:00 Mechanical Ventilator Mechanical Ventilator 03/17/20 19:15 94 18 35 03/17/20 19:00 85 16 129/75 (93) 100 03/17/20 18:00 102 19 137/91 (106) 100 03/17/20 17:40 88 118/64 03/17/20 17:00 90 16 129/71 (90) 100 03/17/20 16:00 Mechanical Ventilator Mechanical Ventilator 03/17/20 16:00 35 03/17/20 16:00 100.1 98 21 150/97 (114) 100 03/17/20 16:00 79 03/17/20 15:09 81 18 35 03/17/20 15:00 83 18 120/83 (95) 100 03/17/20 14:00 88 17 135/66 (89) 100 03/17/20 13:00 87 20 118/61 (80) 100 Intake and Output 03/17/20 03/18/20 19:00 07:00 Intake Total 2584.720 ml 1520 ml Output Total 1030 ml 1390 ml Balance 1554.720 ml 130 ml Intake Free Water 150 ml 110 ml IV Total 1744.720 ml 860 ml Tube Feeding 660 ml 550 ml Other 30 ml Output Urine Total 1030 ml 1390 ml # Bowel Movements 2 General Appearance: no acute distress HEENT: normocephalic, mucous membranes moist, status post trach Respiratory: chest wall non-tender Cardiovascular: normal peripheral pulses, normal rate Abdomen: normal bowel sounds Laboratory Tests 03/18/20 04:00: White Blood Count 14.8H, Red Blood Count 3.11L, Hemoglobin 9.6L, Hematocrit 29.7L, Mean Corpuscular Volume 96, Mean Corpuscular Hemoglobin 31.0, Mean Corpuscular Hemoglobin Concent 32.3, Red Cell Distribution Width 16.6H, Platelet Count 160, Mean Platelet Volume 8.9, Neutrophils (%) (Auto) , Lymphocytes (%) (Auto) , Monocytes (%) (Auto) , Eosinophils (%) (Auto) , Basophils (%) (Auto) , Differential Total Cells Counted 100, Neutrophils % (Manual) 69, Lymphocytes % (Manual) 8L, Monocytes % (Manual) 5, Eosinophils % (Manual) 18H, Basophils % (Manual) 0, Band Neutrophils 0, Platelet Estimate Adequate, Platelet Morphology Normal, Hypochromasia 1+, Anisocytosis 1+, Sodium Level 139, Potassium Level 3.7, Chloride Level 104, Carbon Dioxide Level 32, Anion Gap 3L, Blood Urea Nitrogen 32H, Creatinine 0.8, Estimat Glomerular Filtration Rate > 60, Glucose Level 109H, Calcium Level 7.7L, Phosphorus Level 2.1L, Magnesium Level 1.9, Iron Level 33L, Total Iron Binding Capacity 202L, Percent Iron Saturation 16, Unsaturated Iron Binding 169, Total Bilirubin 1.5H, Direct Bilirubin 0.9H, Aspartate Amino Transf (AST/SGOT) 215H, Alanine Aminotransferase (ALT/SGPT) 941H , Alkaline Phosphatase 91, Total Protein 6.2L, Albumin 1.8L, Globulin 4.4, Albumin/Globulin Ratio 0.4L Current Medications Medications (Trade) Dose Ordered Sig/Natalia Route PRN Reason Start Time Stop Time Status Last Admin Dose Admin Acetaminophen (Tylenol) 650 mg Q4H PRN GT Mild Pain 03/17/20 06:15 04/16/20 06:14 03/18/20 10:15 Acetaminophen (Tylenol) 650 mg Q4H PRN GT fever 03/17/20 06:30 04/16/20 06:29 03/17/20 10:22 Albuterol/ Ipratropium (Albuterol/ Ipratropium) 3 ml Q6H PRN HHN Shortness of Breath 03/13/20 22:45 03/18/20 22:44 03/16/20 10:23 Bisacodyl (Dulcolax) 10 mg DAILYPRN PRN RECTAL Constipation 03/13/20 22:45 06/11/20 22:44 Chlorhexidine Gluconate (Shirley-Hex 2%) 1 applic DAILY@2000 TOPIC 03/18/20 20:00 06/16/20 19:59 Clonidine HCl (Catapres Tab) 0.1 mg Q2H PRN ORAL For High Blood Pressure 03/16/20 11:30 06/14/20 11:29 Dextrose 1,000 ml @ 75 mls/hr [id number] IV 03/15/20 10:30 04/14/20 10:29 03/18/20 04:25 Dextrose (Dextrose 50%) 25 ml Q30M PRN IV Hypoglycemia 03/13/20 22:45 06/11/20 22:44 Dextrose (Dextrose 50%) 50 ml Q30M PRN IV Hypoglycemia 03/13/20 22:45 06/11/20 22:44 Diltiazem HCl (Cardizem Tab) 90 mg EVERY 8 HOURS GT 03/18/20 11:00 04/17/20 10:59 03/18/20 11:27 Docusate Sodium (Colace) 100 mg Q12HR ORAL 03/15/20 10:00 04/14/20 09:59 03/18/20 09:06 Enalaprilat (Vasotec) 1.25 mg Q3H PRN IV For High Blood Pressure 03/16/20 11:30 04/15/20 11:29 Heparin Sodium (Porcine) (Heparin 5000 units/ml) 5,000 units EVERY 12 HOURS SUBQ 03/14/20 09:00 04/28/20 08:59 03/18/20 09:07 Heparin Sodium/ Sodium Chloride (Heparin 1000 units/500ml Premix) 1,000 unit ONCE PRN IV PICC PLACEMENT 03/18/20 12:15 03/19/20 23:59 Lidocaine HCl (Xylocaine 1% 30ml) 30 ml ONCE PRN INJ PICC PLACEMENT 03/18/20 12:15 03/19/20 23:59 Meropenem 1 gm/ Sodium Chloride 55 ml @ 110 mls/hr Q8H IVPB 03/17/20 11:00 03/22/20 10:59 03/18/20 10:25 Morphine Sulfate (Morphine Sulfate) 2 mg Q3H PRN IVP Moderate Pain (Pain Scale 4-6) 03/13/20 22:45 03/20/20 22:44 Morphine Sulfate (Morphine Sulfate) 4 mg Q3H PRN IVP Severe Pain (Pain Scale 7-10) 03/13/20 22:45 03/20/20 22:44 03/15/20 20:31 Ondansetron HCl (Zofran) 4 mg Q6H PRN IVP Nausea & Vomiting 03/13/20 22:45 04/12/20 22:44 Pantoprazole (Protonix) 40 mg Q12HR IV 03/14/20 21:00 04/13/20 08:59 03/18/20 09:06 Potassium Phosphate 20 mm/ Sodium Chloride 281.6667 ml @ 46.944 m... ONCE ONCE IV 03/18/20 12:30 03/18/20 18:29 Assessment/Plan Assessment/Plan IMPRESSION: 1. Worsening pulmonary infiltrates. 2. Pneumonia, healthcare associated. 3. Bacteremia with gram-negative rods. 4. UTI with gram-negative rods. 5. Negative COVID-19 rapid gene assay. 6. Chronic respiratory failure. 7. Seizure disorder. 8. Liver cirrhosis. 9. Paroxysmal atrial fibrillation. DISCUSSION: Agree with current medications and care. I will continue assist-control mechanical ventilation. ABG is adequate. I will decrease FiO2 as tolerated. 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 Discussed with Dr. Danielle. Seen in [facility] Kandy Golden Omar Syed MD Mar 18, 2020 12:56
--- NOTE | 2020-03-18 13:38 | Nephrology Progress Note ---
Assessment/Plan Problem List: (1) NIURKA (acute kidney injury) (2) Renal failure (ARF), acute on chronic (3) HTN (hypertension) (4) Sepsis (5) Elevated LFTs Assessment Acute renal failure secondary to urinary outlet obstruction Electrolyte abnormalities, hyperkalemia Chronic respiratory failure trach and vent dependent History of atrial fibrillation PEG Anemia Patient presented with low blood pressure and shock liver Plan March 18: Labs reviewed. Abnormal electrolytes addressed per orders. Continue per consultants. D5W IV fluid is discontinued March 17: Renal parameters improved. Abnormal electrolyte noted reviewed and addressed. Continue per current management. Discussed with RN. March 16: Renal parameters improved. Abnormal electrolytes addressed. Blood pressure controlled. Continue per current management. March 15: Hydrate and change IV to D5W. Add Norvasc for high blood pressure. Continue to monitor renal parameters and electrolytes. Can start GT feeding. Discussed with RN. March 14: Hydrate As needed hydralazine for high or high blood pressure Monitor electrolyte Treatment of underlying sepsis Per orders Subjective ROS Limited/Unobtainable: No Constitutional: Reports: malaise, weakness Objective Objective Last 24 Hour Vital Signs Date Time Temp Pulse Resp B/P (MAP) Pulse Ox O2 Delivery O2 Flow Rate FiO2 03/18/20 12:00 99.3 103 20 121/53 (75) 100 03/18/20 12:00 35 03/18/20 12:00 105 03/18/20 12:00 Mechanical Ventilator Mechanical Ventilator 03/18/20 11:27 115 140/83 03/18/20 08:00 98.8 103 19 133/88 (103) 100 03/18/20 08:00 Mechanical Ventilator Mechanical Ventilator 03/18/20 08:00 35 03/18/20 07:44 83 03/18/20 05:23 110 132/83 03/18/20 04:00 80 03/18/20 04:00 Mechanical Ventilator Mechanical Ventilator 03/18/20 04:00 97.6 96 19 144/84 (104) 100 03/18/20 04:00 35 03/18/20 02:17 77 15 35 03/18/20 00:07 86 152/99 03/18/20 00:00 Mechanical Ventilator Mechanical Ventilator 03/18/20 00:00 98.2 86 20 128/66 (86) 100 03/18/20 00:00 92 03/18/20 00:00 35 03/17/20 23:35 97.9 97 16 152/99 (116) 100 03/17/20 22:34 72 16 35 03/17/20 22:00 84 15 139/66 (90) 100 03/17/20 21:00 86 17 144/83 (103) 100 03/17/20 20:00 35 03/17/20 20:00 98.5 80 16 133/82 (99) 100 03/17/20 20:00 86 03/17/20 20:00 Mechanical Ventilator Mechanical Ventilator 03/17/20 19:15 94 18 35 03/17/20 19:00 85 16 129/75 (93) 100 03/17/20 18:00 102 19 137/91 (106) 100 03/17/20 17:40 88 118/64 03/17/20 17:00 90 16 129/71 (90) 100 03/17/20 16:00 Mechanical Ventilator Mechanical Ventilator 03/17/20 16:00 35 03/17/20 16:00 100.1 98 21 150/97 (114) 100 03/17/20 16:00 79 03/17/20 15:09 81 18 35 03/17/20 15:00 83 18 120/83 (95) 100 03/17/20 14:00 88 17 135/66 (89) 100 Intake and Output 03/17/20 03/18/20 19:00 07:00 Intake Total 2584.720 ml 1520 ml Output Total 1030 ml 1390 ml Balance 1554.720 ml 130 ml Intake Free Water 150 ml 110 ml IV Total 1744.720 ml 860 ml Tube Feeding 660 ml 550 ml Other 30 ml Output Urine Total 1030 ml 1390 ml # Bowel Movements 2 Current Medications Medications (Trade) Dose Ordered Sig/Natalia Route PRN Reason Start Time Stop Time Status Last Admin Dose Admin Acetaminophen (Tylenol) 650 mg Q4H PRN GT Mild Pain 03/17/20 06:15 04/16/20 06:14 03/18/20 10:15 Acetaminophen (Tylenol) 650 mg Q4H PRN GT fever 03/17/20 06:30 04/16/20 06:29 03/17/20 10:22 Albuterol/ Ipratropium (Albuterol/ Ipratropium) 3 ml Q6H PRN HHN Shortness of Breath 03/13/20 22:45 03/18/20 22:44 03/16/20 10:23 Bisacodyl (Dulcolax) 10 mg DAILYPRN PRN RECTAL Constipation 03/13/20 22:45 06/11/20 22:44 Chlorhexidine Gluconate (Shirley-Hex 2%) 1 applic DAILY@2000 TOPIC 03/18/20 20:00 06/16/20 19:59 Clonidine HCl (Catapres Tab) 0.1 mg Q2H PRN ORAL For High Blood Pressure 03/16/20 11:30 06/14/20 11:29 Dextrose 1,000 ml @ 75 mls/hr [id number] IV 03/15/20 10:30 04/14/20 10:29 03/18/20 04:25 Dextrose (Dextrose 50%) 25 ml Q30M PRN IV Hypoglycemia 03/13/20 22:45 06/11/20 22:44 Dextrose (Dextrose 50%) 50 ml Q30M PRN IV Hypoglycemia 03/13/20 22:45 06/11/20 22:44 Diltiazem HCl (Cardizem Tab) 90 mg EVERY 8 HOURS GT 03/18/20 11:00 04/17/20 10:59 03/18/20 11:27 Docusate Sodium (Colace) 100 mg Q12HR ORAL 03/15/20 10:00 04/14/20 09:59 03/18/20 09:06 Enalaprilat (Vasotec) 1.25 mg Q3H PRN IV For High Blood Pressure 03/16/20 11:30 04/15/20 11:29 Heparin Sodium (Porcine) (Heparin 5000 units/ml) 5,000 units EVERY 12 HOURS SUBQ 03/14/20 09:00 04/28/20 08:59 03/18/20 09:07 Heparin Sodium/ Sodium Chloride (Heparin 1000 units/500ml Premix) 1,000 unit ONCE PRN IV PICC PLACEMENT 03/18/20 12:15 03/19/20 23:59 Lidocaine HCl (Xylocaine 1% 30ml) 30 ml ONCE PRN INJ PICC PLACEMENT 03/18/20 12:15 03/19/20 23:59 Meropenem 1 gm/ Sodium Chloride 55 ml @ 110 mls/hr Q8H IVPB 03/17/20 11:00 03/22/20 10:59 03/18/20 10:25 Morphine Sulfate (Morphine Sulfate) 2 mg Q3H PRN IVP Moderate Pain (Pain Scale 4-6) 03/13/20 22:45 03/20/20 22:44 Morphine Sulfate (Morphine Sulfate) 4 mg Q3H PRN IVP Severe Pain (Pain Scale 7-10) 03/13/20 22:45 03/20/20 22:44 03/15/20 20:31 Ondansetron HCl (Zofran) 4 mg Q6H PRN IVP Nausea & Vomiting 03/13/20 22:45 04/12/20 22:44 Pantoprazole (Protonix) 40 mg Q12HR IV 03/14/20 21:00 04/13/20 08:59 03/18/20 09:06 Potassium Phosphate 20 mm/ Sodium Chloride 281.6667 ml @ 46.944 m... ONCE ONCE IV 03/18/20 12:30 03/18/20 18:29 Laboratory Tests 03/18/20 04:00: White Blood Count 14.8H, Red Blood Count 3.11L, Hemoglobin 9.6L, Hematocrit 29.7L, Mean Corpuscular Volume 96, Mean Corpuscular Hemoglobin 31.0, Mean Corpuscular Hemoglobin Concent 32.3, Red Cell Distribution Width 16.6H, Platelet Count 160, Mean Platelet Volume 8.9, Neutrophils (%) (Auto) , Lymphocytes (%) (Auto) , Monocytes (%) (Auto) , Eosinophils (%) (Auto) , Basophils (%) (Auto) , Differential Total Cells Counted 100, Neutrophils % (Manual) 69, Lymphocytes % (Manual) 8L, Monocytes % (Manual) 5, Eosinophils % (Manual) 18H, Basophils % (Manual) 0, Band Neutrophils 0, Platelet Estimate Adequate, Platelet Morphology Normal, Hypochromasia 1+, Anisocytosis 1+, Sodium Level 139, Potassium Level 3.7, Chloride Level 104, Carbon Dioxide Level 32, Anion Gap 3L, Blood Urea Nitrogen 32H, Creatinine 0.8, Estimat Glomerular Filtration Rate > 60, Glucose Level 109H, Calcium Level 7.7L, Phosphorus Level 2.1L, Magnesium Level 1.9, Iron Level 33L, Total Iron Binding Capacity 202L, Percent Iron Saturation 16, Unsaturated Iron Binding 169, Total Bilirubin 1.5H, Direct Bilirubin 0.9H, Aspartate Amino Transf (AST/SGOT) 215H, Alanine Aminotransferase (ALT/SGPT) 941H , Alkaline Phosphatase 91, Total Protein 6.2L, Albumin 1.8L, Globulin 4.4, Albumin/Globulin Ratio 0.4L Height (Feet): 6 Weight (Pounds): 185 General Appearance: no apparent distress, lethargic Cardiovascular: tachycardia Respiratory/Chest: decreased breath sounds Abdomen: distended Tano Longoria MD Mar 18, 2020 13:37
--- NOTE | 2020-03-18 14:24 | Surgery Progress Note ---
Surgery Progress Note Subjective Additional Comments leukocytosis anemia labs noted exam unchanged ill appearing Objective Last 24 Hour Vital Signs Date Time Temp Pulse Resp B/P (MAP) Pulse Ox O2 Delivery O2 Flow Rate FiO2 03/18/20 12:00 99.3 103 20 121/53 (75) 100 03/18/20 12:00 35 03/18/20 12:00 105 03/18/20 12:00 Mechanical Ventilator Mechanical Ventilator 03/18/20 11:27 115 140/83 03/18/20 08:00 98.8 103 19 133/88 (103) 100 03/18/20 08:00 Mechanical Ventilator Mechanical Ventilator 03/18/20 08:00 35 03/18/20 07:44 83 03/18/20 05:23 110 132/83 03/18/20 04:00 80 03/18/20 04:00 Mechanical Ventilator Mechanical Ventilator 03/18/20 04:00 97.6 96 19 144/84 (104) 100 03/18/20 04:00 35 03/18/20 02:17 77 15 35 03/18/20 00:07 86 152/99 03/18/20 00:00 Mechanical Ventilator Mechanical Ventilator 03/18/20 00:00 98.2 86 20 128/66 (86) 100 03/18/20 00:00 92 03/18/20 00:00 35 03/17/20 23:35 97.9 97 16 152/99 (116) 100 03/17/20 22:34 72 16 35 03/17/20 22:00 84 15 139/66 (90) 100 03/17/20 21:00 86 17 144/83 (103) 100 03/17/20 20:00 35 03/17/20 20:00 98.5 80 16 133/82 (99) 100 03/17/20 20:00 86 03/17/20 20:00 Mechanical Ventilator Mechanical Ventilator 03/17/20 19:15 94 18 35 03/17/20 19:00 85 16 129/75 (93) 100 03/17/20 18:00 102 19 137/91 (106) 100 03/17/20 17:40 88 118/64 03/17/20 17:00 90 16 129/71 (90) 100 03/17/20 16:00 Mechanical Ventilator Mechanical Ventilator 03/17/20 16:00 35 03/17/20 16:00 100.1 98 21 150/97 (114) 100 03/17/20 16:00 79 03/17/20 15:09 81 18 35 03/17/20 15:00 83 18 120/83 (95) 100 I&O Intake and Output 03/17/20 03/18/20 19:00 07:00 Intake Total 2584.720 ml 1520 ml Output Total 1030 ml 1390 ml Balance 1554.720 ml 130 ml Intake Free Water 150 ml 110 ml IV Total 1744.720 ml 860 ml Tube Feeding 660 ml 550 ml Other 30 ml Output Urine Total 1030 ml 1390 ml # Bowel Movements 2 Dressing: saturated Cardiovascular: RSR Respiratory: decreased breath sounds Abdomen: non-tender, present bowel sounds Extremities: edema, no tenderness, no cyanosis Laboratory Tests Test 03/18/20 04:00 White Blood Count 14.8 K/UL (4.8-10.8) H Red Blood Count 3.11 M/UL (4.70-6.10) L Hemoglobin 9.6 G/DL (14.2-18.0) L Hematocrit 29.7 % (42.0-52.0) L Mean Corpuscular Volume 96 FL (80-99) Mean Corpuscular Hemoglobin 31.0 PG (27.0-31.0) Mean Corpuscular Hemoglobin Concent 32.3 G/DL (32.0-36.0) Red Cell Distribution Width 16.6 % (11.6-14.8) H Platelet Count 160 K/UL (150-450) Mean Platelet Volume 8.9 FL (6.5-10.1) Neutrophils (%) (Auto) % (45.0-75.0) Lymphocytes (%) (Auto) % (20.0-45.0) Monocytes (%) (Auto) % (1.0-10.0) Eosinophils (%) (Auto) % (0.0-3.0) Basophils (%) (Auto) % (0.0-2.0) Differential Total Cells Counted 100 Neutrophils % (Manual) 69 % (45-75) Lymphocytes % (Manual) 8 % (20-45) L Monocytes % (Manual) 5 % (1-10) Eosinophils % (Manual) 18 % (0-3) H Basophils % (Manual) 0 % (0-2) Band Neutrophils 0 % (0-8) Platelet Estimate Adequate Platelet Morphology Normal Hypochromasia 1+ Anisocytosis 1+ Sodium Level 139 MMOL/L (136-145) Potassium Level 3.7 MMOL/L (3.5-5.1) Chloride Level 104 MMOL/L (98-107) Carbon Dioxide Level 32 MMOL/L (21-32) Anion Gap 3 mmol/L (5-15) L Blood Urea Nitrogen 32 mg/dL (7-18) H Creatinine 0.8 MG/DL (0.55-1.30) Estimat Glomerular Filtration Rate > 60 mL/min (>60) Glucose Level 109 MG/DL (74-106) H Calcium Level 7.7 MG/DL (8.5-10.1) L Phosphorus Level 2.1 MG/DL (2.5-4.9) L Magnesium Level 1.9 MG/DL (1.8-2.4) Iron Level 33 ug/dL (50-175) L Total Iron Binding Capacity 202 ug/dL (250-450) L Percent Iron Saturation 16 % (15-50) Unsaturated Iron Binding 169 ug/dL (112-346) Total Bilirubin 1.5 MG/DL (0.2-1.0) H Direct Bilirubin 0.9 MG/DL (0.0-0.3) H Aspartate Amino Transf (AST/SGOT) 215 U/L (15-37) H Alanine Aminotransferase (ALT/SGPT) 941 U/L (12-78) H Alkaline Phosphatase 91 U/L (46-116) Total Protein 6.2 G/DL (6.4-8.2) L Albumin 1.8 G/DL (3.4-5.0) L Globulin 4.4 g/dL Albumin/Globulin Ratio 0.4 (1.0-2.7) L Plan Problems: (1) Lactic acidosis (2) Bradycardia (3) Renal failure (4) Shock liver (5) Chronic respiratory failure (6) Hyperkalemia (7) Anemia (8) Electrolyte imbalance (9) Sepsis Assessment & Plan: leukocytosis anemia shock liver elevated lft's decubitus ulcer respiratory insufficiency decubitus ulcers cont abx local wound care diet as tolerated tf turn q2h wean support s tolerated Pt presented on admission with multiple Skin breakdown.Scattered Senile purpuras both upper extremities. Category 3 Skin Tear R antecubital/R lateral elbow with 100% Flap loss. Base of wound is hallie with scattered Biofilm.. Edges are macerated with surrounding purpura. MASD upper L back. Affected area is reg pink with scattered satellite lesions that mostly dry with Few lesions noted to have small amt sanguineous exudate. Sacral DTPI (L)5.5cm x (W)6.5cm. Base of Pressure Injury is indurated with , Maroon with purpuric area at sacrococcygeal area. Scattered dry plaques noted to L Buttocks. Scrotum and medial/upper aspects of both thighs are erythematous. R Heel is boggy with non-Blanchable erythema. L Heel is boggy with non-blanchable erythema. DTPI Lateral R Malleolus (L)1.5cm x (W)1cm. Non-Blanchable erythema R Hallux. Distal /lateral L foot/L 5th metatarsal is boggy with non-blanchable erythema. Tx.Plan: Cleanse Skin Tear R arm with Saline. Cover with Versatel One Contact layer drsg. Apply Silvasorb gel. Cover with Optifoam drsg. Change every 7 days and prn. Apply Triad Paste to Rash L upper back daily and prn. Leave open to air. Apply Moisture Barrier Paste to Sacrum. Cover with Optifoam drsg. Change every 3 days and prn. Apply Moisture Barrier Paste to scrotum and Medial/Posterior Aspects fo both Upper thighs with each incontinence care. Reposition at least every 2hours or as tolerated. Off-load heels with pillow. APM/EULALIA Mattress overlay. (10) Shock (11) NSTEMI (non-ST elevated myocardial infarction) (12) Aspiration pneumonia (13) Tracheostomy complication (14) HTN (hypertension) (15) Tracheostomy malfunction (16) NIURKA (acute kidney injury) (17) Renal failure (ARF), acute on chronic (18) Elevated LFTs Yousuf Samayoa Mar 18, 2020 14:24
[2020-03-18 16:00] VITALS: BP 150/81
--- NOTE | 2020-03-18 16:00 | NUR ---
NURSE NOTES: Pt is turned and reposition, bed bath done, linens changed. Wounds cleaned and dressed. Pt tolerated vent settings. Vitals remain stable. Will continue to monitor pt.
--- NOTE | 2020-03-18 16:08 | NUR ---
FOREST FIRE OFFICEREXTRACORPOREAL TECHNICIAN SI: RESP FAILURE TRACH/VENT SEPSIS T. 99.3 HR 115 RR 20 B/P 121/83 WBC 14.8 AC 14 TV 500 FIO2 35% PEEP 5 IS: K-PHOS IV MEROPENEM IV PROTONIX IV STEP DOWN STATUS
--- NOTE | 2020-03-18 16:11 | NUR ---
STORAGE ARCHITECT NOTES CLINICALS REVIEWED AND FAXED.
--- NOTE | 2020-03-18 19:15 | NUR ---
NURSE HAND-OFF REPORT: Important Events on Shift:None Patient Status: full code Diet: Glucerna 1.5 @ 55cc/hr Pending Orders: N Pending Results/Labs:N Pending notification:N Latest Vital Signs: Temperature 98.8 , Pulse 104 , B/P 150 /81 , Respiratory Rate 20 , O2 SAT 100 , Mechanical Ventilator, O2 Flow Rate 40.0 . Vital Sign Comment: stable EKG Rhythm: Atrial Fibrillation Rhythm change?: N MD Notified?: Y - Dr Jhonny RICARDO Response: pt now on cardizem gtt Latest Wall Fall Score: 75 Fall Risk: High Risk Safety Measures: Call light Within Reach, Bed Alarm Zone 3, Side Rails Side Rails x3, Bed position Low and Locked. Fall Precautions: Yellow Socks Yellow Gown Door Sign Patient Fall Education Report given to LISSA Aguilar.
[2020-03-18 20:00] VITALS: BP 156/66
--- NOTE | 2020-03-18 21:00 | NUR ---
NURSE NOTES: Patient tolerated all meds well. Vent settings tolerated well. Will continue to monitor.
[2020-03-18] MEDS: Dyna-Hex 2% Top Sol 2oz TOPIC SCH (21:05)
--- NOTE | 2020-03-18 22:54 | Neurology Progress Note ---
Interim History Interim History ROS Limited/Unobtainable: No Interim History remains poorly responsive non verbal no seizures Objective Physical Exam Last Vital Signs Date Time Temp Pulse Resp B/P (MAP) Pulse Ox O2 Delivery O2 Flow Rate FiO2 03/18/20 21:06 69 156/66 03/18/20 20:00 35 03/18/20 20:00 98.4 21 100 03/18/20 20:00 Mechanical Ventilator Mechanical Ventilator 03/15/20 03:51 40.0 Laboratory Tests Test 03/18/20 04:00 White Blood Count 14.8 K/UL (4.8-10.8) H Red Blood Count 3.11 M/UL (4.70-6.10) L Hemoglobin 9.6 G/DL (14.2-18.0) L Hematocrit 29.7 % (42.0-52.0) L Mean Corpuscular Volume 96 FL (80-99) Mean Corpuscular Hemoglobin 31.0 PG (27.0-31.0) Mean Corpuscular Hemoglobin Concent 32.3 G/DL (32.0-36.0) Red Cell Distribution Width 16.6 % (11.6-14.8) H Platelet Count 160 K/UL (150-450) Mean Platelet Volume 8.9 FL (6.5-10.1) Neutrophils (%) (Auto) % (45.0-75.0) Lymphocytes (%) (Auto) % (20.0-45.0) Monocytes (%) (Auto) % (1.0-10.0) Eosinophils (%) (Auto) % (0.0-3.0) Basophils (%) (Auto) % (0.0-2.0) Differential Total Cells Counted 100 Neutrophils % (Manual) 69 % (45-75) Lymphocytes % (Manual) 8 % (20-45) L Monocytes % (Manual) 5 % (1-10) Eosinophils % (Manual) 18 % (0-3) H Basophils % (Manual) 0 % (0-2) Band Neutrophils 0 % (0-8) Platelet Estimate Adequate Platelet Morphology Normal Hypochromasia 1+ Anisocytosis 1+ Sodium Level 139 MMOL/L (136-145) Potassium Level 3.7 MMOL/L (3.5-5.1) Chloride Level 104 MMOL/L (98-107) Carbon Dioxide Level 32 MMOL/L (21-32) Anion Gap 3 mmol/L (5-15) L Blood Urea Nitrogen 32 mg/dL (7-18) H Creatinine 0.8 MG/DL (0.55-1.30) Estimat Glomerular Filtration Rate > 60 mL/min (>60) Glucose Level 109 MG/DL (74-106) H Calcium Level 7.7 MG/DL (8.5-10.1) L Phosphorus Level 2.1 MG/DL (2.5-4.9) L Magnesium Level 1.9 MG/DL (1.8-2.4) Iron Level 33 ug/dL (50-175) L Total Iron Binding Capacity 202 ug/dL (250-450) L Percent Iron Saturation 16 % (15-50) Unsaturated Iron Binding 169 ug/dL (112-346) Total Bilirubin 1.5 MG/DL (0.2-1.0) H Direct Bilirubin 0.9 MG/DL (0.0-0.3) H Aspartate Amino Transf (AST/SGOT) 215 U/L (15-37) H Alanine Aminotransferase (ALT/SGPT) 941 U/L (12-78) H Alkaline Phosphatase 91 U/L (46-116) Total Protein 6.2 G/DL (6.4-8.2) L Albumin 1.8 G/DL (3.4-5.0) L Globulin 4.4 g/dL Albumin/Globulin Ratio 0.4 (1.0-2.7) L Neurologic Exam Mental Status: awake Objective somnolent open eyes, agitated right sided parkinsonism, withdraws all 4. 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 parkinsonism on exam ,likely vascular icu monitoring map >65 cards following cont atb cont heparin eeg no seizures ct brain noted. Winston Brown MD Mar 18, 2020 22:54
[2020-03-19] VITALS: BP 139/59
--- NOTE | 2020-03-19 | NUR ---
NURSE NOTES: Patient noted with 8/10 FLACC score. Non-pharmacological intervention provided but ineffective. PRN pain medication given. Will continue to monitor.
[2020-03-19] MEDS: Morphine Sulfate 4mg/ml Inj (IV USE ONLY) IVP PRN (00:21)
--- NOTE | 2020-03-19 03:00 | NUR ---
NURSE NOTES: Patient asleep. No distress noted. Will continue to monitor.
[2020-03-19] MEDS: Meropenem 1 GM in NS 55 ML IVPB SCH ×3 (03:09→18:25)
[2020-03-19 04:00] VITALS: BP 138/64
[2020-03-19 05:32] LABS: ALANINE AMINOTRANSFERASE 660 U/L (12-78); ALBUMIN 1.9 G/DL (3.4-5.0); ALBUMIN/GLOBULIN RATIO 0.4 (1.0-2.7); ALKALINE PHOSPHATASE 86 U/L (46-116); ANION GAP 1 mmol/L (5-15); ASPARTATE AMINO TRANSFERASE 111 U/L (15-37); BILIRUBIN,TOTAL 1.5 MG/DL (0.2-1.0); BLOOD UREA NITROGEN 28 mg/dL (7-18); CALCIUM 7.7 MG/DL (8.5-10.1); CARBON DIOXIDE 32 MMOL/L (21-32); CHLORIDE 106 MMOL/L (98-107); CREATININE 0.8 MG/DL (0.55-1.30); POTASSIUM 4.5 MMOL/L (3.5-5.1); SODIUM 139 MMOL/L (136-145)
[2020-03-19 05:36] LABS: BILIRUBIN,DIRECT 1.1 MG/DL (0.0-0.3)
--- NOTE | 2020-03-19 06:00 | NUR ---
NURSE NOTES: Stool sample acquired. Will send to lab. Patient stable. No acute distress noted. Will continue to monitor.
[2020-03-19] MEDS: dilTIAZem HCl 90mg tab GT SCH ×3 (06:02→21:13)
[2020-03-19 06:22] LABS: HEMATOCRIT 27.6 % (42.0-52.0); MEAN CORPUSCULAR VOLUME 96 FL (80-99); PLATELET COUNT 154 K/UL (150-450); RED BLOOD COUNT 2.89 M/UL (4.70-6.10); RED CELL DISTRIBUTION WIDTH 16.6 % (11.6-14.8); WHITE BLOOD COUNT 15.7 K/UL (4.8-10.8)
--- NOTE | 2020-03-19 07:10 | NUR ---
NURSE HAND-OFF REPORT: Important Events on Shift: Stool collected Patient Status: Stable Diet: GT Pending Orders: Pending Results/Labs: Pending MD notification: Latest Vital Signs: Temperature 98.2 , Pulse 76 , B/P 138 /64 , Respiratory Rate 22 , O2 SAT 100 , Mechanical Ventilator, O2 Flow Rate 40.0 . Vital Sign Comment: WNL EKG Rhythm: Sinus Rhythm Rhythm change?: N MD Notified?: N - Dr Jhonny RICARDO Response: pt now on cardizem gtt Latest Wall Fall Score: 75 Fall Risk: High Risk Safety Measures: Call light Within Reach, Bed Alarm Zone 3, Side Rails Side Rails x3, Bed position Low and Locked. Fall Precautions: Yellow Socks Yellow Gown Door Sign Patient Fall Education Report given to LISSA Mary.
--- NOTE | 2020-03-19 07:25 | NUR ---
NURSE NOTES: Received report from LISSA Aguilar. Pt is lying in bed, obtunded but communicates by facial expression. Not in distress, no facial grimacing. Tolerating vent setting of AC14, TV500, FiO2 35%, PEEP 5, saturating 100%. G-Tube is intact and patent running Glucerna 1.5 @ 55cc/hr. Left Femoral TLC is intact and patent. Johnson catheter is intact and patent draining jacque colored urine. Skin issues noted, dressing intact. Bed is locked and in lowest position, bed alarm on, call light is within reached. Head of bed is elevated at all time. Will continue to monitor pt. Will continue with the plan of care.
[2020-03-19] MEDS: Acetaminophen 650mg/20.3ml GT PRN ×2 (07:59→21:03)
[2020-03-19 08:00] VITALS: BP 165/80
--- NOTE | 2020-03-19 08:01 | NUR ---
NURSE NOTES: Pt has temperature of 101.5. Tylenol prn given as ordered. Will reassess pt.
--- NOTE | 2020-03-19 08:36 | Infectious Diseases Prog Note ---
Assessment/Plan 85yo M with: Afebrile Leukocytosis to 21, improved GNR bacteremia most likely 2/2 UTI Obstructive uropathy s/p drainage w/ aggarwal 03/13 BCx +P.mirabilis (S-CTX) UCx +ESBL E.coli and ESBL P.mirabilis COVID rapid Ag neg CXR: BL pna Abd US neg 03/15 Resp cx +ESBL E.coli and Serratia marcesens 03/19 BCx ordered ?Mastoiditis, regardless on course of meropenem 03/17 CTH: 1. Loss of hernandez-white differentiation in the left frontal lobe whi ch may represent subacute or chronic infarct, especially given multifocal encephalomalacia. However, in the absence of comparison imaging, further evaluation with MRI is recommended to exclude acute infarct. 2. Large bilateral mastoid effusions; correlation for mastoiditis is recommended. NIURKA, improving Elevated LFTs - AST 1858 / ALT 3987 >> improving Acute hep panel neg Acute on chronic resp failure S/p trach/PEG, vent dependent Prior CVA Hemiplegia Dysphagia Gastroparesis Pressure ulcers Nonverbal SNF resident Plan: Cont meropenem #3/ to cover for ESBL UTI and bacteremia. Plan for 7 days of meropenem then stop and monitor off abx. On discharge can transition to ertapenem 1g IV daily to complete course Repeat BCx today given fever Remove L fem CVC, possible source of fever/leukocytosis Trend WBC 03/17 SP Zosyn #3 03/16 SP vanco #2 empiric Monitor CBC/CMP Monitor resp status Monitor temp curve, hemodynamics D/w RN Thank you for this consult. [facility] will continue to follow. Subjective Allergies: Coded Allergies: No Known Allergies (Unverified , 02/11/20) AF WBC 15, slightly up NAD on vent 35% PEEP 5 Febrile now to 101.5 Good UOP w/ aggarwal Objective Last 24 Hour Vital Signs Date Time Temp Pulse Resp B/P (MAP) Pulse Ox O2 Delivery O2 Flow Rate FiO2 03/19/20 07:02 76 20 35 03/19/20 06:02 76 138/64 03/19/20 04:00 Mechanical Ventilator Mechanical Ventilator 03/19/20 04:00 98.2 76 22 138/64 (88) 100 03/19/20 04:00 35 03/19/20 04:00 76 03/19/20 03:12 79 17 35 03/19/20 00:00 35 03/19/20 00:00 98.4 98 24 139/59 (85) 100 03/19/20 00:00 69 03/19/20 00:00 Mechanical Ventilator Mechanical Ventilator 03/18/20 22:54 87 23 35 03/18/20 21:06 69 156/66 03/18/20 20:00 35 03/18/20 20:00 69 03/18/20 20:00 98.4 72 21 156/66 (96) 100 03/18/20 20:00 Mechanical Ventilator Mechanical Ventilator 03/18/20 19:30 76 17 35 03/18/20 16:00 Mechanical Ventilator Mechanical Ventilator 03/18/20 16:00 98.8 104 20 150/81 (104) 100 03/18/20 16:00 35 03/18/20 15:34 106 23 35 03/18/20 15:28 93 03/18/20 12:00 99.3 103 20 121/53 (75) 100 03/18/20 12:00 35 03/18/20 12:00 105 03/18/20 12:00 Mechanical Ventilator Mechanical Ventilator 03/18/20 11:33 110 18 35 03/18/20 11:27 115 140/83 Height (Feet): 6 Weight (Pounds): 185 Gen: NAD in bed HEENT: NCAT +trach CV: RRR Pulm: CTAB Abd: Soft, NTND Ext: No c/c/e Neuro: Sleeping Laboratory Tests Test 03/19/20 04:00 03/19/20 05:30 White Blood Count 15.7 K/UL (4.8-10.8) H Red Blood Count 2.89 M/UL (4.70-6.10) L Hemoglobin 9.0 G/DL (14.2-18.0) L Hematocrit 27.6 % (42.0-52.0) L Mean Corpuscular Volume 96 FL (80-99) Mean Corpuscular Hemoglobin 31.2 PG (27.0-31.0) H Mean Corpuscular Hemoglobin Concent 32.6 G/DL (32.0-36.0) Red Cell Distribution Width 16.6 % (11.6-14.8) H Platelet Count 154 K/UL (150-450) Mean Platelet Volume 9.0 FL (6.5-10.1) Neutrophils (%) (Auto) % (45.0-75.0) Lymphocytes (%) (Auto) % (20.0-45.0) Monocytes (%) (Auto) % (1.0-10.0) Eosinophils (%) (Auto) % (0.0-3.0) Basophils (%) (Auto) % (0.0-2.0) Neutrophils % (Manual) Pending Lymphocytes % (Manual) Pending Platelet Estimate Pending Platelet Morphology Pending Sodium Level 139 MMOL/L (136-145) Potassium Level 4.5 MMOL/L (3.5-5.1) Chloride Level 106 MMOL/L (98-107) Carbon Dioxide Level 32 MMOL/L (21-32) Anion Gap 1 mmol/L (5-15) L Blood Urea Nitrogen 28 mg/dL (7-18) H Creatinine 0.8 MG/DL (0.55-1.30) Estimat Glomerular Filtration Rate > 60 mL/min (>60) Glucose Level 115 MG/DL (74-106) H Calcium Level 7.7 MG/DL (8.5-10.1) L Total Bilirubin 1.5 MG/DL (0.2-1.0) H Direct Bilirubin 1.1 MG/DL (0.0-0.3) H Aspartate Amino Transf (AST/SGOT) 111 U/L (15-37) H Alanine Aminotransferase (ALT/SGPT) 660 U/L (12-78) H Alkaline Phosphatase 86 U/L (46-116) Total Protein 6.2 G/DL (6.4-8.2) L Albumin 1.9 G/DL (3.4-5.0) L Globulin 4.3 g/dL Albumin/Globulin Ratio 0.4 (1.0-2.7) L Stool Occult Blood Pending Current Medications Medications (Trade) Dose Ordered Sig/Natalia Route PRN Reason Start Time Stop Time Status Last Admin Dose Admin Acetaminophen (Tylenol) 650 mg Q4H PRN GT Mild Pain 03/17/20 06:15 04/16/20 06:14 03/18/20 10:15 Acetaminophen (Tylenol) 650 mg Q4H PRN GT fever 03/17/20 06:30 04/16/20 06:29 03/19/20 07:59 Bisacodyl (Dulcolax) 10 mg DAILYPRN PRN RECTAL Constipation 03/13/20 22:45 06/11/20 22:44 Chlorhexidine Gluconate (Shirley-Hex 2%) 1 applic DAILY@1999 TOPIC 03/18/20 20:00 06/16/20 19:59 03/18/20 21:05 Clonidine HCl (Catapres Tab) 0.1 mg Q2H PRN ORAL For High Blood Pressure 03/16/20 11:30 06/14/20 11:29 Dextrose (Dextrose 50%) 25 ml Q30M PRN IV Hypoglycemia 03/13/20 22:45 06/11/20 22:44 Dextrose (Dextrose 50%) 50 ml Q30M PRN IV Hypoglycemia 03/13/20 22:45 06/11/20 22:44 Diltiazem HCl (Cardizem Tab) 90 mg EVERY 8 HOURS GT 03/18/20 11:00 04/17/20 10:59 03/19/20 06:02 Docusate Sodium (Colace) 100 mg Q12HR ORAL 03/15/20 10:00 04/14/20 09:59 03/18/20 21:05 Enalaprilat (Vasotec) 1.25 mg Q3H PRN IV For High Blood Pressure 03/16/20 11:30 04/15/20 11:29 Heparin Sodium (Porcine) (Heparin 5000 units/ml) 5,000 units EVERY 12 HOURS SUBQ 03/14/20 09:00 04/28/20 08:59 03/18/20 21:11 Heparin Sodium/ Sodium Chloride (Heparin 1000 units/500ml Premix) 1,000 unit ONCE PRN IV PICC PLACEMENT 03/18/20 12:15 03/19/20 23:59 Lidocaine HCl (Xylocaine 1% 30ml) 30 ml ONCE PRN INJ PICC PLACEMENT 03/18/20 12:15 03/19/20 23:59 Meropenem 1 gm/ Sodium Chloride 55 ml @ 110 mls/hr Q8H IVPB 03/17/20 11:00 03/22/20 10:59 03/19/20 03:09 Morphine Sulfate (Morphine Sulfate) 2 mg Q3H PRN IVP Moderate Pain (Pain Scale 4-6) 03/13/20 22:45 03/20/20 22:44 Morphine Sulfate (Morphine Sulfate) 4 mg Q3H PRN IVP Severe Pain (Pain Scale 7-10) 03/13/20 22:45 03/20/20 22:44 03/19/20 00:21 Ondansetron HCl (Zofran) 4 mg Q6H PRN IVP Nausea & Vomiting 03/13/20 22:45 04/12/20 22:44 Pantoprazole (Protonix) 40 mg Q12HR IV 03/14/20 21:00 04/13/20 08:59 03/18/20 21:05 Carmen Hines M.D. Mar 19, 2020 08:36
[2020-03-19] MEDS: Pantoprazole Inj IV SCH ×2 (08:46→20:29)
[2020-03-19] MEDS: Docusate 100mg/10ml Liq ORAL SCH ×2 (08:46→20:29)
[2020-03-19] MEDS: Heparin 5000 units/ml inj SUBQ SCH ×2 (08:48→20:30)
--- NOTE | 2020-03-19 10:00 | NUR ---
NURSE NOTES: Initial assessment done. Vital signs remain stable. New labs reviewed. Morning medications administered per order. Not in distress. Afebrile. Will continue to monitor pt. Will continue with the plan of care.
--- NOTE | 2020-03-19 10:37 | General Progress Note ---
Subjective ROS Limited/Unobtainable: No Allergies: Coded Allergies: No Known Allergies (Unverified , 02/11/20) Objective Last 24 Hour Vital Signs Date Time Temp Pulse Resp B/P (MAP) Pulse Ox O2 Delivery O2 Flow Rate FiO2 03/19/20 08:29 100.9 03/19/20 08:00 Mechanical Ventilator Mechanical Ventilator 03/19/20 08:00 35 03/19/20 08:00 77 03/19/20 08:00 100.3 82 23 165/80 (108) 100 03/19/20 07:02 76 20 35 03/19/20 06:02 76 138/64 03/19/20 04:00 Mechanical Ventilator Mechanical Ventilator 03/19/20 04:00 98.2 76 22 138/64 (88) 100 03/19/20 04:00 35 03/19/20 04:00 76 03/19/20 03:12 79 17 35 03/19/20 00:00 35 03/19/20 00:00 98.4 98 24 139/59 (85) 100 03/19/20 00:00 69 03/19/20 00:00 Mechanical Ventilator Mechanical Ventilator 03/18/20 22:54 87 23 35 03/18/20 21:06 69 156/66 03/18/20 20:00 35 03/18/20 20:00 69 03/18/20 20:00 98.4 72 21 156/66 (96) 100 03/18/20 20:00 Mechanical Ventilator Mechanical Ventilator 03/18/20 19:30 76 17 35 03/18/20 16:00 Mechanical Ventilator Mechanical Ventilator 03/18/20 16:00 98.8 104 20 150/81 (104) 100 03/18/20 16:00 35 03/18/20 15:34 106 23 35 03/18/20 15:28 93 03/18/20 12:00 99.3 103 20 121/53 (75) 100 03/18/20 12:00 35 03/18/20 12:00 105 03/18/20 12:00 Mechanical Ventilator Mechanical Ventilator 03/18/20 11:33 110 18 35 03/18/20 11:27 115 140/83 Intake and Output 03/18/20 03/19/20 19:00 07:00 Intake Total 800.82 ml 805 ml Output Total 1000 ml 950 ml Balance -199.18 ml -145 ml Intake Free Water 60 ml 200 ml IV Total 80.82 ml Tube Feeding 660 ml 605 ml Output Urine Total 1000 ml 950 ml # Bowel Movements 2 Laboratory Tests 03/19/20 04:00: White Blood Count 15.7H, Red Blood Count 2.89L, Hemoglobin 9.0L, Hematocrit 27.6L, Mean Corpuscular Volume 96, Mean Corpuscular Hemoglobin 31.2H, Mean Corpuscular Hemoglobin Concent 32.6, Red Cell Distribution Width 16.6H, Platelet Count 154, Mean Platelet Volume 9.0, Neutrophils (%) (Auto) , Lymphocytes (%) (Auto) , Monocytes (%) (Auto) , Eosinophils (%) (Auto) , Basophils (%) (Auto) , Differential Total Cells Counted 100, Neutrophils % (Manual) 90H, Lymphocytes % (Manual) 2L, Monocytes % (Manual) 6, Eosinophils % (Manual) 2, Basophils % (Manual) 0, Band Neutrophils 0, Platelet Estimate Adequate, Platelet Morphology Normal, Polychromasia 1+, Hypochromasia 1+, Anisocytosis 1+, Sodium Level 139, Potassium Level 4.5, Chloride Level 106, Carbon Dioxide Level 32, Anion Gap 1L, Blood Urea Nitrogen 28H, Creatinine 0.8, Estimat Glomerular Filtration Rate > 60, Glucose Level 115H, Calcium Level 7.7L, Total Bilirubin 1.5H, Direct Bilirubin 1.1H, Aspartate Amino Transf (AST/SGOT) 111H, Alanine Aminotransferase (ALT/SGPT) 660H, Alkaline Phosphatase 86, Total Protein 6.2L, Albumin 1.9L, Globulin 4.3, Albumin/Globulin Ratio 0.4L 03/19/20 05:30: Stool Occult Blood [Pending] Height (Feet): 6 Weight (Pounds): 185 General Appearance: no apparent distress EENT: normal ENT inspection Neck: supple Cardiovascular: normal rate Respiratory/Chest: decreased breath sounds Abdomen: normal bowel sounds, non tender, soft Extremities: non-tender Assessment/Plan Problem List: (1) Elevated LFTs ICD Codes: R79.89 - Other specified abnormal findings of blood chemistry SNOMED: 228562946, 899931061 (2) HTN (hypertension) ICD Codes: I10 - Essential (primary) hypertension SNOMED: 10007524 (3) Tracheostomy complication ICD Codes: J95.00 - Unspecified tracheostomy complication SNOMED: 44440130 (4) Anemia ICD Codes: D64.9 - Anemia, unspecified SNOMED: 608968325 (5) Shock liver ICD Codes: K72.00 - Acute and subacute hepatic failure without coma SNOMED: 406947637 Status: unchanged Assessment/Plan: abd ua reviewed LFTS improving hepatitis panel neg repeat LFTS in am anemia work up \ GTF monitor for residuals Velasquez Donahue MD Mar 19, 2020 10:37
--- NOTE | 2020-03-19 11:20 | Nephrology Progress Note ---
Assessment/Plan Problem List: (1) NIURKA (acute kidney injury) (2) Renal failure (ARF), acute on chronic (3) HTN (hypertension) (4) Sepsis (5) Elevated LFTs Assessment Acute renal failure secondary to urinary outlet obstruction Electrolyte abnormalities, hyperkalemia Chronic respiratory failure trach and vent dependent History of atrial fibrillation PEG Anemia Patient presented with low blood pressure and shock liver Plan March 19: Labs reviewed. Discussed with Dr. Danielle. Stable from renal standpoint of view. Continues to have trach, PEG, Johnson. Trial of discontinuation of Johnson can be done in-house or as an outpatient. March 18: Labs reviewed. Abnormal electrolytes addressed per orders. Continue per consultants. D5W IV fluid is discontinued March 17: Renal parameters improved. Abnormal electrolyte noted reviewed and addressed. Continue per current management. Discussed with RN. March 16: Renal parameters improved. Abnormal electrolytes addressed. Blood pressure controlled. Continue per current management. March 15: Hydrate and change IV to D5W. Add Norvasc for high blood pressure. Continue to monitor renal parameters and electrolytes. Can start GT feeding. Discussed with RN. March 14: Hydrate As needed hydralazine for high or high blood pressure Monitor electrolyte Treatment of underlying sepsis Per orders Subjective ROS Limited/Unobtainable: Yes Objective Objective Last 24 Hour Vital Signs Date Time Temp Pulse Resp B/P (MAP) Pulse Ox O2 Delivery O2 Flow Rate FiO2 03/19/20 08:29 100.9 03/19/20 08:00 Mechanical Ventilator Mechanical Ventilator 03/19/20 08:00 35 03/19/20 08:00 77 03/19/20 08:00 100.3 82 23 165/80 (108) 100 03/19/20 07:02 76 20 35 03/19/20 06:02 76 138/64 03/19/20 04:00 Mechanical Ventilator Mechanical Ventilator 03/19/20 04:00 98.2 76 22 138/64 (88) 100 03/19/20 04:00 35 03/19/20 04:00 76 03/19/20 03:12 79 17 35 03/19/20 00:00 35 03/19/20 00:00 98.4 98 24 139/59 (85) 100 03/19/20 00:00 69 03/19/20 00:00 Mechanical Ventilator Mechanical Ventilator 03/18/20 22:54 87 23 35 03/18/20 21:06 69 156/66 03/18/20 20:00 35 03/18/20 20:00 69 03/18/20 20:00 98.4 72 21 156/66 (96) 100 03/18/20 20:00 Mechanical Ventilator Mechanical Ventilator 03/18/20 19:30 76 17 35 03/18/20 16:00 Mechanical Ventilator Mechanical Ventilator 03/18/20 16:00 98.8 104 20 150/81 (104) 100 03/18/20 16:00 35 03/18/20 15:34 106 23 35 03/18/20 15:28 93 03/18/20 12:00 99.3 103 20 121/53 (75) 100 03/18/20 12:00 35 03/18/20 12:00 105 03/18/20 12:00 Mechanical Ventilator Mechanical Ventilator 03/18/20 11:33 110 18 35 03/18/20 11:27 115 140/83 Intake and Output 03/18/20 03/19/20 19:00 07:00 Intake Total 800.82 ml 805 ml Output Total 1000 ml 950 ml Balance -199.18 ml -145 ml Intake Free Water 60 ml 200 ml IV Total 80.82 ml Tube Feeding 660 ml 605 ml Output Urine Total 1000 ml 950 ml # Bowel Movements 2 Laboratory Tests 03/19/20 04:00: White Blood Count 15.7H, Red Blood Count 2.89L, Hemoglobin 9.0L, Hematocrit 27.6L, Mean Corpuscular Volume 96, Mean Corpuscular Hemoglobin 31.2H, Mean Corpuscular Hemoglobin Concent 32.6, Red Cell Distribution Width 16.6H, Platelet Count 154, Mean Platelet Volume 9.0, Neutrophils (%) (Auto) , Lymphocytes (%) (Auto) , Monocytes (%) (Auto) , Eosinophils (%) (Auto) , Basophils (%) (Auto) , Differential Total Cells Counted 100, Neutrophils % (Manual) 90H, Lymphocytes % (Manual) 2L, Monocytes % (Manual) 6, Eosinophils % (Manual) 2, Basophils % (Manual) 0, Band Neutrophils 0, Platelet Estimate Adequate, Platelet Morphology Normal, Polychromasia 1+, Hypochromasia 1+, Anisocytosis 1+, Sodium Level 139, Potassium Level 4.5, Chloride Level 106, Carbon Dioxide Level 32, Anion Gap 1L, Blood Urea Nitrogen 28H, Creatinine 0.8, Estimat Glomerular Filtration Rate > 60, Glucose Level 115H, Calcium Level 7.7L, Total Bilirubin 1.5H, Direct Bilirubin 1.1H, Aspartate Amino Transf (AST/SGOT) 111H, Alanine Aminotransferase (ALT/SGPT) 660H, Alkaline Phosphatase 86, Total Protein 6.2L, Albumin 1.9L, Globulin 4.3, Albumin/Globulin Ratio 0.4L 03/19/20 05:30: Stool Occult Blood Negative 03/19/20 10:20: Arterial Blood pH 7.474H, Arterial Blood Partial Pressure CO2 41.5, Arterial Blood Partial Pressure O2 113.7H, Arterial Blood HCO3 29.8H, Arterial Blood Oxygen Saturation 97.6, Arterial Blood Base Excess 5.7H, Alvaro Test Positive Height (Feet): 6 Weight (Pounds): 185 General Appearance: no apparent distress Cardiovascular: normal rate Respiratory/Chest: decreased breath sounds Abdomen: distended Tano Longoria MD Mar 19, 2020 11:20
--- NOTE | 2020-03-19 11:40 | General Progress Note ---
Subjective Date patient seen: Mar 19, 2020 Time patient seen: 11:00 ROS Limited/Unobtainable: No Allergies: Coded Allergies: No Known Allergies (Unverified , 02/11/20) All Systems: reviewed and negative except above Subjective non verbal Objective Last 24 Hour Vital Signs Date Time Temp Pulse Resp B/P (MAP) Pulse Ox O2 Delivery O2 Flow Rate FiO2 03/19/20 08:29 100.9 03/19/20 08:00 Mechanical Ventilator Mechanical Ventilator 03/19/20 08:00 35 03/19/20 08:00 77 03/19/20 08:00 100.3 82 23 165/80 (108) 100 03/19/20 07:02 76 20 35 03/19/20 06:02 76 138/64 03/19/20 04:00 Mechanical Ventilator Mechanical Ventilator 03/19/20 04:00 98.2 76 22 138/64 (88) 100 03/19/20 04:00 35 03/19/20 04:00 76 03/19/20 03:12 79 17 35 03/19/20 00:00 35 03/19/20 00:00 98.4 98 24 139/59 (85) 100 03/19/20 00:00 69 03/19/20 00:00 Mechanical Ventilator Mechanical Ventilator 03/18/20 22:54 87 23 35 03/18/20 21:06 69 156/66 03/18/20 20:00 35 03/18/20 20:00 69 03/18/20 20:00 98.4 72 21 156/66 (96) 100 03/18/20 20:00 Mechanical Ventilator Mechanical Ventilator 03/18/20 19:30 76 17 35 03/18/20 16:00 Mechanical Ventilator Mechanical Ventilator 03/18/20 16:00 98.8 104 20 150/81 (104) 100 03/18/20 16:00 35 03/18/20 15:34 106 23 35 03/18/20 15:28 93 03/18/20 12:00 99.3 103 20 121/53 (75) 100 03/18/20 12:00 35 03/18/20 12:00 105 03/18/20 12:00 Mechanical Ventilator Mechanical Ventilator 03/18/20 11:33 110 18 35 Intake and Output 03/18/20 03/19/20 19:00 07:00 Intake Total 800.82 ml 805 ml Output Total 1000 ml 950 ml Balance -199.18 ml -145 ml Intake Free Water 60 ml 200 ml IV Total 80.82 ml Tube Feeding 660 ml 605 ml Output Urine Total 1000 ml 950 ml # Bowel Movements 2 Laboratory Tests 03/19/20 04:00: White Blood Count 15.7H, Red Blood Count 2.89L, Hemoglobin 9.0L, Hematocrit 27.6L, Mean Corpuscular Volume 96, Mean Corpuscular Hemoglobin 31.2H, Mean Corpuscular Hemoglobin Concent 32.6, Red Cell Distribution Width 16.6H, Platelet Count 154, Mean Platelet Volume 9.0, Neutrophils (%) (Auto) , Lymphocytes (%) (Auto) , Monocytes (%) (Auto) , Eosinophils (%) (Auto) , Basophils (%) (Auto) , Differential Total Cells Counted 100, Neutrophils % (Manual) 90H, Lymphocytes % (Manual) 2L, Monocytes % (Manual) 6, Eosinophils % (Manual) 2, Basophils % (Manual) 0, Band Neutrophils 0, Platelet Estimate Adequate, Platelet Morphology Normal, Polychromasia 1+, Hypochromasia 1+, Anisocytosis 1+, Sodium Level 139, Potassium Level 4.5, Chloride Level 106, Carbon Dioxide Level 32, Anion Gap 1L, Blood Urea Nitrogen 28H, Creatinine 0.8, Estimat Glomerular Filtration Rate > 60, Glucose Level 115H, Calcium Level 7.7L, Total Bilirubin 1.5H, Direct Bilirubin 1.1H, Aspartate Amino Transf (AST/SGOT) 111H, Alanine Aminotransferase (ALT/SGPT) 660H, Alkaline Phosphatase 86, Total Protein 6.2L, Albumin 1.9L, Globulin 4.3, Albumin/Globulin Ratio 0.4L 03/19/20 05:30: Stool Occult Blood Negative 03/19/20 10:20: Arterial Blood pH 7.474H, Arterial Blood Partial Pressure CO2 41.5, Arterial Blood Partial Pressure O2 113.7H, Arterial Blood HCO3 29.8H, Arterial Blood Oxygen Saturation 97.6, Arterial Blood Base Excess 5.7H, Alvaro Test Positive Height (Feet): 6 Weight (Pounds): 185 General Appearance: moderate distress Neck: other - trach Cardiovascular: normal rate Respiratory/Chest: decreased breath sounds Abdomen: other - peg Genitourinary/Rectal: other - aggarwal Skin: other - femoral line Objective CLINICAL HISTORY: ABN LABS TECHNIQUE: Real-time ultrasound of the abdomen with image documentation. COMPARISON: Abdominal ultrasound on 02/17/2020 FINDINGS: Liver: Left liver not visualized. Liver measures 13.0 cm. No focal lesion. Gallbladder: No gallbladder wall thickening or pericholecystic fluid. No definite stones or sludge. Common bile duct: Normal common bile duct measuring 5.2 mm. No stones. No dilation. Pancreas: Pancreas could not be visualized due to presence of bandaging. Kidneys: Right kidney measures 8.3 cm in length. No hydronephrosis or stone. Left kidney measures 10.3 cm in length. No hydronephrosis or stone. Spleen: Spleen measures 8.9 cm. Aorta: Not visualized. Inferior vena cava: Not visualized. Other vasculature: Patent main portal vein with normal direction of flow. Free fluid: No ascites. IMPRESSION: No acute findings in the abdomen. 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 # Bradycardia - Junctional rhythym on admission, resolved. # NSTEMI - Serial troponin with decreasing titter noted. TTE Initial EKG showed junctional bradycardia and prolonged QRS/QT interval concerning for hyperkalemia. Patient's HR in the ER was 40 worsened into heart rate in the 20s with subsequent hypotension /6. Patient was treated with calcium, magnesium, bicarb at bedside due to concern for hyperkalemia. Atropine and Epi given in the ER. Dopamine gtt titration started in the ED. Cardiology consultation requested with Dr. Barry and telemetry showed Atrial Fibrillation with RVR 03/15/20. Diltiazem gtt started and now adjusted to Cadizem 60 mg q 6 hr, GT and now telemetry shows stable heart rate. Continue CCB therapy. #Sepsis consistent with ventilator associated pneumonia. Tracheostomy is in place Broad sp antibiotic started and WBC improving and less than 20K now GNR in all blood culture bottles noted today. ID consultation requested with Dr Hines. Vancomycin stopped. Zosyn stopped 03/17 and Meropenem started by ID needs 7 day course. ESBL E. Coli and Proteus M noted in cultures Treat fever with cooling measures. Temp 100.9 today. # Hyperkalemia on admission Treated medically. Renal consulation requested with Dr. Laguerre # Hypomagnesemia Replete # Hypophosphatemia Replet # History of L renal mass by US 02/17/20 # NIURKA on CKD Creatinine decreasing and possibly due to severe urinary retention which was relieved in the ED after aggarwal insertion. Monitor I/O's Renal consultation appreciated. Patient has sacral ulcers and incontinence of urine will worsen the wounds. Will keep Aggarwal for now. He does not have proper anatomy for condom cath and will be incontinent. #Elevated LFT's and prior history of cirrhosis # Shock liver due to hypotension Trend LFT's GI consultation if persistent LFT elevation noted. # History of CVA and hemiplegia with PEG and trach Consider MRI brain for possible anoxic brain injury in the setting of hypotension CT head reviewed and neurology following. I discussed with family and they reported that the patient is full care trach/peg since original CVA, he is NOT ambulatory and non verbal which is his current state now. Line Central line Diet Tube feeds. DVT ppx GI ppx FULL CODE Family was called 03/15 and they are hopeful that the patient will return to his prior baseline. I updated the daughter about cardiac, renal, lung, liver current status and high complexity and morbidity mortality for the patient. [facility] discussion follow up will be needed pending on clinical progress. Va Danielle MD Mar 19, 2020 11:40
[2020-03-19 12:00] VITALS: BP 139/61
--- NOTE | 2020-03-19 12:40 | Cardiac Electrophysiology PN ---
Assessment/Plan Assessment/Plan 1. Profound bradycardia, heart rate dropping to 20s associated with hypotension due to the hyperkalemia and metoprolol. The metoprolol has been discontinued and the patient received atropine and hyperkalemia was treated. Currently, he is not bradycardic despite Cardizem. 2. Troponin elevation 0.2, 0.4, 0.2, likely due to demand ischemia in this patient with severe sepsis and septic shock. EF 55% 3. Initial hypotension and shock. Likely due to sepsis. White count is improving and the patient is now off both Levophed and dopamine. 4. Hypertension. Within 24 hours, his blood pressure improved from 70 to 200s. Cannot use NNAMDI inhibitor or angiotensin-receptor blockers in view of hyperkalemia and acute renal failure either. On Cardizem and prn vasotec and clonidine 5. Atrial fib with RVR. On Cardizem 90 q 8 6. Ventilator-dependent respiratory failure, status post tracheostomy. 7. Dysphagia, status post PEG placement. 8. CVA with hemiplegia. 9. Pressure ulcers. 10. Anemia. 11. Shock liver. LELAND RN Subjective Subjective On the Vent via trach with 35% Fio2 and PEEP 5. Troponins flat and low Off Cardizem 60 q 6 via PEG but tachy again Had Fever 101.5 . Atrial fib converted to SR Objective Last 24 Hour Vital Signs Date Time Temp Pulse Resp B/P (MAP) Pulse Ox O2 Delivery O2 Flow Rate FiO2 03/19/20 08:29 100.9 03/19/20 08:00 Mechanical Ventilator Mechanical Ventilator 03/19/20 08:00 35 03/19/20 08:00 77 03/19/20 08:00 100.3 82 23 165/80 (108) 100 03/19/20 07:02 76 20 35 03/19/20 06:02 76 138/64 03/19/20 04:00 Mechanical Ventilator Mechanical Ventilator 03/19/20 04:00 98.2 76 22 138/64 (88) 100 03/19/20 04:00 35 03/19/20 04:00 76 03/19/20 03:12 79 17 35 03/19/20 00:00 35 03/19/20 00:00 98.4 98 24 139/59 (85) 100 03/19/20 00:00 69 03/19/20 00:00 Mechanical Ventilator Mechanical Ventilator 03/18/20 22:54 87 23 35 03/18/20 21:06 69 156/66 03/18/20 20:00 35 03/18/20 20:00 69 03/18/20 20:00 98.4 72 21 156/66 (96) 100 03/18/20 20:00 Mechanical Ventilator Mechanical Ventilator 03/18/20 19:30 76 17 35 03/18/20 16:00 Mechanical Ventilator Mechanical Ventilator 03/18/20 16:00 98.8 104 20 150/81 (104) 100 03/18/20 16:00 35 03/18/20 15:34 106 23 35 03/18/20 15:28 93 Intake and Output 03/18/20 03/19/20 19:00 07:00 Intake Total 800.82 ml 860 ml Output Total 1000 ml 950 ml Balance -199.18 ml -90 ml Intake Free Water 60 ml 200 ml IV Total 80.82 ml Tube Feeding 660 ml 660 ml Output Urine Total 1000 ml 950 ml # Bowel Movements 2 Laboratory Tests Test 03/19/20 04:00 03/19/20 05:30 03/19/20 10:20 White Blood Count 15.7 K/UL (4.8-10.8) H Red Blood Count 2.89 M/UL (4.70-6.10) L Hemoglobin 9.0 G/DL (14.2-18.0) L Hematocrit 27.6 % (42.0-52.0) L Mean Corpuscular Volume 96 FL (80-99) Mean Corpuscular Hemoglobin 31.2 PG (27.0-31.0) H Mean Corpuscular Hemoglobin Concent 32.6 G/DL (32.0-36.0) Red Cell Distribution Width 16.6 % (11.6-14.8) H Platelet Count 154 K/UL (150-450) Mean Platelet Volume 9.0 FL (6.5-10.1) Neutrophils (%) (Auto) % (45.0-75.0) Lymphocytes (%) (Auto) % (20.0-45.0) Monocytes (%) (Auto) % (1.0-10.0) Eosinophils (%) (Auto) % (0.0-3.0) Basophils (%) (Auto) % (0.0-2.0) Differential Total Cells Counted 100 Neutrophils % (Manual) 90 % (45-75) H Lymphocytes % (Manual) 2 % (20-45) L Monocytes % (Manual) 6 % (1-10) Eosinophils % (Manual) 2 % (0-3) Basophils % (Manual) 0 % (0-2) Band Neutrophils 0 % (0-8) Platelet Estimate Adequate Platelet Morphology Normal Polychromasia 1+ Hypochromasia 1+ Anisocytosis 1+ Sodium Level 139 MMOL/L (136-145) Potassium Level 4.5 MMOL/L (3.5-5.1) Chloride Level 106 MMOL/L (98-107) Carbon Dioxide Level 32 MMOL/L (21-32) Anion Gap 1 mmol/L (5-15) L Blood Urea Nitrogen 28 mg/dL (7-18) H Creatinine 0.8 MG/DL (0.55-1.30) Estimat Glomerular Filtration Rate > 60 mL/min (>60) Glucose Level 115 MG/DL (74-106) H Calcium Level 7.7 MG/DL (8.5-10.1) L Total Bilirubin 1.5 MG/DL (0.2-1.0) H Direct Bilirubin 1.1 MG/DL (0.0-0.3) H Aspartate Amino Transf (AST/SGOT) 111 U/L (15-37) H Alanine Aminotransferase (ALT/SGPT) 660 U/L (12-78) H Alkaline Phosphatase 86 U/L (46-116) Total Protein 6.2 G/DL (6.4-8.2) L Albumin 1.9 G/DL (3.4-5.0) L Globulin 4.3 g/dL Albumin/Globulin Ratio 0.4 (1.0-2.7) L Stool Occult Blood Negative (NEGATIVE) Arterial Blood pH 7.474 (7.350-7.450) Arterial Blood Partial Pressure CO2 41.5 mmHg (35.0-45.0) Arterial Blood Partial Pressure O2 113.7 mmHg (75.0-100.0) H Arterial Blood HCO3 29.8 mmol/L (22.0-26.0) H Arterial Blood Oxygen Saturation 97.6 % (95-100) Arterial Blood Base Excess 5.7 (-2-2) H Alvaro Test Positive Objective HEAD AND NECK: No JVD. Status post tracheostomy. LUNGS: Coarse rhonchi. CARDIOVASCULAR: Regular S1 and S2 with no gallop. ABDOMEN: Status post G-tube. EXTREMITIES: 1+ pitting edema. Liang Barry MD Mar 19, 2020 12:40
--- NOTE | 2020-03-19 13:42 | NUR ---
CASE MANAGEMENT:REVIEW 03/19/20 SI: PNEUMONIA. UTI TRACH/VENT 100.9 82 23 165/80 100% ON VENT SUPPORT W/35% FIO2 WBC+15.7 H/H-9.0/27.6 BUN+28 CA-7.7 IS: IV MEROPENEM Q8HRS CARDIZEM GT Q6HRS IV PROTONIX Q12 HEPARIN SQ Q12 : ICU STATUS DCP: FROM [facility] PLAN:
--- NOTE | 2020-03-19 14:06 | Pulmonology Progress Note ---
Subjective ROS Limited/Unobtainable: Yes - s/p trach Interval Events: None new reported Constitutional: Reports: no symptoms HEENT: Repors: no symptoms Respiratory: Reports: no symptoms Cardiovascular: Reports: no symptoms Gastrointestinal/Abdominal: Reports: no symptoms Genitourinary: Reports: no symptoms Allergies: Coded Allergies: No Known Allergies (Unverified , 02/11/20) All Systems: reviewed and negative except above Objective Last 24 Hour Vital Signs Date Time Temp Pulse Resp B/P (MAP) Pulse Ox O2 Delivery O2 Flow Rate FiO2 03/19/20 13:53 80 154/77 03/19/20 12:00 Mechanical Ventilator Mechanical Ventilator 03/19/20 12:00 76 03/19/20 12:00 99.3 74 22 139/61 (87) 99 03/19/20 12:00 35 03/19/20 08:29 100.9 03/19/20 08:00 Mechanical Ventilator Mechanical Ventilator 03/19/20 08:00 35 03/19/20 08:00 77 03/19/20 08:00 100.3 82 23 165/80 (108) 100 03/19/20 07:02 76 20 35 03/19/20 06:02 76 138/64 03/19/20 04:00 Mechanical Ventilator Mechanical Ventilator 03/19/20 04:00 98.2 76 22 138/64 (88) 100 03/19/20 04:00 35 03/19/20 04:00 76 03/19/20 03:12 79 17 35 03/19/20 00:00 35 03/19/20 00:00 98.4 98 24 139/59 (85) 100 03/19/20 00:00 69 03/19/20 00:00 Mechanical Ventilator Mechanical Ventilator 03/18/20 22:54 87 23 35 03/18/20 21:06 69 156/66 03/18/20 20:00 35 03/18/20 20:00 69 03/18/20 20:00 98.4 72 21 156/66 (96) 100 03/18/20 20:00 Mechanical Ventilator Mechanical Ventilator 03/18/20 19:30 76 17 35 03/18/20 16:00 Mechanical Ventilator Mechanical Ventilator 03/18/20 16:00 98.8 104 20 150/81 (104) 100 03/18/20 16:00 35 03/18/20 15:34 106 23 35 03/18/20 15:28 93 Intake and Output 03/18/20 03/19/20 19:00 07:00 Intake Total 800.82 ml 860 ml Output Total 1000 ml 950 ml Balance -199.18 ml -90 ml Intake Free Water 60 ml 200 ml IV Total 80.82 ml Tube Feeding 660 ml 660 ml Output Urine Total 1000 ml 950 ml # Bowel Movements 2 Objective 03/19/2020 s/p trach; current vent setting AC 14, VT 500, PEEP 5, FiO2 35% General Appearance: no acute distress HEENT: normocephalic, mucous membranes moist, status post trach Respiratory: chest wall non-tender, other - coarse lung sounds Cardiovascular: normal peripheral pulses, normal rate Abdomen: normal bowel sounds, other - s/p G tube Genitourinary: other - Johnson Extremities: other - 1+ pitting edema Laboratory Tests 03/19/20 04:00: White Blood Count 15.7H, Red Blood Count 2.89L, Hemoglobin 9.0L, Hematocrit 27.6L, Mean Corpuscular Volume 96, Mean Corpuscular Hemoglobin 31.2H, Mean Corpuscular Hemoglobin Concent 32.6, Red Cell Distribution Width 16.6H, Platelet Count 154, Mean Platelet Volume 9.0, Neutrophils (%) (Auto) , Lymphocytes (%) (Auto) , Monocytes (%) (Auto) , Eosinophils (%) (Auto) , Basophils (%) (Auto) , Differential Total Cells Counted 100, Neutrophils % (Manual) 90H, Lymphocytes % (Manual) 2L, Monocytes % (Manual) 6, Eosinophils % (Manual) 2, Basophils % (Manual) 0, Band Neutrophils 0, Platelet Estimate Adequate, Platelet Morphology Normal, Polychromasia 1+, Hypochromasia 1+, Anisocytosis 1+, Sodium Level 139, Potassium Level 4.5, Chloride Level 106, Carbon Dioxide Level 32, Anion Gap 1L, Blood Urea Nitrogen 28H, Creatinine 0.8, Estimat Glomerular Filtration Rate > 60, Glucose Level 115H, Calcium Level 7.7L, Total Bilirubin 1.5H, Direct Bilirubin 1.1H, Aspartate Amino Transf (AST/SGOT) 111H, Alanine Aminotransferase (ALT/SGPT) 660H, Alkaline Phosphatase 86, Total Protein 6.2L, Albumin 1.9L, Globulin 4.3, Albumin/Globulin Ratio 0.4L 03/19/20 05:30: Stool Occult Blood Negative 03/19/20 10:20: Arterial Blood pH 7.474H, Arterial Blood Partial Pressure CO2 41.5, Arterial Blood Partial Pressure O2 113.7H, Arterial Blood HCO3 29.8H, Arterial Blood Oxygen Saturation 97.6, Arterial Blood Base Excess 5.7H, Alvaro Test Positive Current Medications Medications (Trade) Dose Ordered Sig/Natalia Route PRN Reason Start Time Stop Time Status Last Admin Dose Admin Acetaminophen (Tylenol) 650 mg Q4H PRN GT Mild Pain 03/17/20 06:15 04/16/20 06:14 03/18/20 10:15 Acetaminophen (Tylenol) 650 mg Q4H PRN GT fever 03/17/20 06:30 04/16/20 06:29 03/19/20 07:59 Bisacodyl (Dulcolax) 10 mg DAILYPRN PRN RECTAL Constipation 03/13/20 22:45 06/11/20 22:44 Chlorhexidine Gluconate (Shirley-Hex 2%) 1 applic DAILY@2000 TOPIC 03/18/20 20:00 06/16/20 19:59 03/18/20 21:05 Clonidine HCl (Catapres Tab) 0.1 mg Q2H PRN ORAL For High Blood Pressure 03/16/20 11:30 06/14/20 11:29 Dextrose (Dextrose 50%) 25 ml Q30M PRN IV Hypoglycemia 03/13/20 22:45 06/11/20 22:44 Dextrose (Dextrose 50%) 50 ml Q30M PRN IV Hypoglycemia 03/13/20 22:45 06/11/20 22:44 Diltiazem HCl (Cardizem Tab) 90 mg EVERY 8 HOURS GT 03/18/20 11:00 04/17/20 10:59 03/19/20 13:53 Docusate Sodium (Colace) 100 mg Q12HR ORAL 03/15/20 10:00 04/14/20 09:59 03/19/20 08:46 Enalaprilat (Vasotec) 1.25 mg Q3H PRN IV For High Blood Pressure 03/16/20 11:30 04/15/20 11:29 Heparin Sodium (Porcine) (Heparin 5000 units/ml) 5,000 units EVERY 12 HOURS SUBQ 03/14/20 09:00 1/20/21 08:59 03/19/20 08:48 Heparin Sodium/ Sodium Chloride (Heparin 1000 units/500ml Premix) 1,000 unit ONCE PRN IV PICC PLACEMENT 03/18/20 12:15 03/19/20 23:59 Lidocaine HCl (Xylocaine 1% 30ml) 30 ml ONCE PRN INJ PICC PLACEMENT 03/18/20 12:15 03/19/20 23:59 Meropenem 1 gm/ Sodium Chloride 55 ml @ 110 mls/hr Q8H IVPB 03/17/20 11:00 03/22/20 10:59 03/19/20 11:10 Morphine Sulfate (Morphine Sulfate) 2 mg Q3H PRN IVP Moderate Pain (Pain Scale 4-6) 03/13/20 22:45 03/20/20 22:44 Morphine Sulfate (Morphine Sulfate) 4 mg Q3H PRN IVP Severe Pain (Pain Scale 7-10) 03/13/20 22:45 03/20/20 22:44 03/19/20 00:21 Ondansetron HCl (Zofran) 4 mg Q6H PRN IVP Nausea & Vomiting 03/13/20 22:45 04/12/20 22:44 Pantoprazole (Protonix) 40 mg Q12HR IV 03/14/20 21:00 04/13/20 08:59 03/19/20 08:46 Assessment/Plan Assessment/Plan 1. Worsening pulmonary infiltrates. 2. Pneumonia, healthcare associated. 3. Bacteremia with gram-negative rods. 4. UTI with gram-negative rods. 5. Negative COVID-19 rapid gene assay. 6. Chronic respiratory failure. 7. Seizure disorder. 8. Liver cirrhosis. 9. Paroxysmal atrial fibrillation. DISCUSSION: Agree with current medications and care. continue assist-control mechanical ventilation. ABG is adequate. Decrease FiO2 as tolerated. We will follow carefully The care for this patient was discussed with my supervising physician Time spent for this case was approximately 31 minutes Corona Zapien Mar 19, 2020 14:06
--- NOTE | 2020-03-19 14:30 | NUR ---
NURSE NOTES: PICC line insertion in left upper arm done. Complete bed bath done, linens changed, dressings changed. Pt tolerated. No facial grimacing noted. Vital signs remain stable. Tolerating vent settings with O2 99-100%. Will continue to monitor pt.
--- NOTE | 2020-03-19 15:18 | Pre-Procedure Note/Attestation ---
Pre-Procedure Note/Attestation Complete Prior to Procedure Planned Procedure: not applicable Procedure Narrative: BEDSIDE PICC PLACEMENT Indications for Procedure Pre-Operative Diagnosis: NEEDS INTERMEDIATE IV ACCESS Attestation I attest that I discussed the nature of the procedure; its benefits; risks and complications; and alternatives (and the risks and benefits of such alternatives), prior to the procedure, with the patient (or the patient's legal senior customer service representative). I attest that, if there was a reasonable possibility of needing a blood transfusion, the patient (or the patient's legal senior customer service representative) was given the [facility] standardized written summary, pursuant to the Duane Sheryl Blood Safety Act ([place] Health and Safety Code # 1645, as amended). I attest that I re-evaluated the patient just prior to the surgery and that there has been no change in the patient's H&P, except as documented below: Lazaro Morgan MD Mar 19, 2020 15:18
--- NOTE | 2020-03-19 15:19 | Brief Operative Note ---
Immediate Post Operative Note Operative Note Pre-op Diagnosis: NEEDS PENITENTIARY IV ACCESS Post-op Diagnosis: same as pre-op Findings: consistent w/pre-op dx studies Surgeon: LAZARO ALFARO MD, MA Anesthesia: local Specimen: none Complications: none Condition: stable Fluids: 0 Estimated Blood Loss: minimal Implant(s) used?: Yes - 4FR DL PICC Lazaro Alfaro MD Mar 19, 2020 15:19
--- NOTE | 2020-03-19 15:21 | Diagnostic Imaging Report ---
Indications: Needs long-term IV access Technique: Ultrasound confirms patent compressible basilic vein. Total sterile technique, including sterile probe cover and sterile gel, hat, mask,, sterile gown, large sterile drape, and preparation with 2% chlorhexidine utilized. Local anesthesia with 1% lidocaine. Under real-time ultrasound guidance, the basilic vein was punctured using 21-gauge needle, followed by passage of 0.018 guidewire. This is followed by exchange for 5 British peel-away sheath. 5 British Bard dual-lumen power PICC. It was inserted through the peel-away sheath. Peel-away sheath and guidewire removed. Catheter fixed to the skin. Both catheter ports aspirated and flushed. Patient tolerated procedure well, without immediate complication. Digital radiograph documents satisfactory catheter tip position, at the upper SVC. Impression: Successful bedside ultrasound-guided placement of left sided PICC, with subsequent chest radiograph demonstrating tip position in the upper SVC.
--- NOTE | 2020-03-19 15:38 | NUR ---
RADIOLOGY NOTE: LEFT PICC LINE PLACEMENT BY DR. ALFARO. FA
[2020-03-19 16:25] VITALS: BP 180/86
--- NOTE | 2020-03-19 16:30 | Surgery Progress Note ---
Surgery Progress Note Subjective Additional Comments picc line placed downgraded no n/v dressings going well Objective Last 24 Hour Vital Signs Date Time Temp Pulse Resp B/P (MAP) Pulse Ox O2 Delivery O2 Flow Rate FiO2 03/19/20 16:25 100.0 88 24 180/86 (117) 99 03/19/20 16:00 Mechanical Ventilator Mechanical Ventilator 03/19/20 13:53 80 154/77 03/19/20 12:00 Mechanical Ventilator Mechanical Ventilator 03/19/20 12:00 76 03/19/20 12:00 99.3 74 22 139/61 (87) 99 03/19/20 12:00 35 03/19/20 11:02 78 17 35 03/19/20 08:29 100.9 03/19/20 08:00 Mechanical Ventilator Mechanical Ventilator 03/19/20 08:00 35 03/19/20 08:00 77 03/19/20 08:00 100.3 82 23 165/80 (108) 100 03/19/20 07:02 76 20 35 03/19/20 06:02 76 138/64 03/19/20 04:00 Mechanical Ventilator Mechanical Ventilator 03/19/20 04:00 98.2 76 22 138/64 (88) 100 03/19/20 04:00 35 03/19/20 04:00 76 03/19/20 03:12 79 17 35 03/19/20 00:00 35 03/19/20 00:00 98.4 98 24 139/59 (85) 100 03/19/20 00:00 69 03/19/20 00:00 Mechanical Ventilator Mechanical Ventilator 03/18/20 22:54 87 23 35 03/18/20 21:06 69 156/66 03/18/20 20:00 35 03/18/20 20:00 69 03/18/20 20:00 98.4 72 21 156/66 (96) 100 03/18/20 20:00 Mechanical Ventilator Mechanical Ventilator 03/18/20 19:30 76 17 35 I&O Intake and Output 03/18/20 03/19/20 19:00 07:00 Intake Total 800.82 ml 860 ml Output Total 1000 ml 950 ml Balance -199.18 ml -90 ml Intake Free Water 60 ml 200 ml IV Total 80.82 ml Tube Feeding 660 ml 660 ml Output Urine Total 1000 ml 950 ml # Bowel Movements 2 Dressing: other Wound: other Cardiovascular: RSR Respiratory: decreased breath sounds Abdomen: non-tender, present bowel sounds Extremities: no tenderness, no cyanosis Laboratory Tests Test 03/19/20 04:00 03/19/20 05:30 03/19/20 10:20 White Blood Count 15.7 K/UL (4.8-10.8) H Red Blood Count 2.89 M/UL (4.70-6.10) L Hemoglobin 9.0 G/DL (14.2-18.0) L Hematocrit 27.6 % (42.0-52.0) L Mean Corpuscular Volume 96 FL (80-99) Mean Corpuscular Hemoglobin 31.2 PG (27.0-31.0) H Mean Corpuscular Hemoglobin Concent 32.6 G/DL (32.0-36.0) Red Cell Distribution Width 16.6 % (11.6-14.8) H Platelet Count 154 K/UL (150-450) Mean Platelet Volume 9.0 FL (6.5-10.1) Neutrophils (%) (Auto) % (45.0-75.0) Lymphocytes (%) (Auto) % (20.0-45.0) Monocytes (%) (Auto) % (1.0-10.0) Eosinophils (%) (Auto) % (0.0-3.0) Basophils (%) (Auto) % (0.0-2.0) Differential Total Cells Counted 100 Neutrophils % (Manual) 90 % (45-75) H Lymphocytes % (Manual) 2 % (20-45) L Monocytes % (Manual) 6 % (1-10) Eosinophils % (Manual) 2 % (0-3) Basophils % (Manual) 0 % (0-2) Band Neutrophils 0 % (0-8) Platelet Estimate Adequate Platelet Morphology Normal Polychromasia 1+ Hypochromasia 1+ Anisocytosis 1+ Sodium Level 139 MMOL/L (136-145) Potassium Level 4.5 MMOL/L (3.5-5.1) Chloride Level 106 MMOL/L (98-107) Carbon Dioxide Level 32 MMOL/L (21-32) Anion Gap 1 mmol/L (5-15) L Blood Urea Nitrogen 28 mg/dL (7-18) H Creatinine 0.8 MG/DL (0.55-1.30) Estimat Glomerular Filtration Rate > 60 mL/min (>60) Glucose Level 115 MG/DL (74-106) H Calcium Level 7.7 MG/DL (8.5-10.1) L Total Bilirubin 1.5 MG/DL (0.2-1.0) H Direct Bilirubin 1.1 MG/DL (0.0-0.3) H Aspartate Amino Transf (AST/SGOT) 111 U/L (15-37) H Alanine Aminotransferase (ALT/SGPT) 660 U/L (12-78) H Alkaline Phosphatase 86 U/L (46-116) Total Protein 6.2 G/DL (6.4-8.2) L Albumin 1.9 G/DL (3.4-5.0) L Globulin 4.3 g/dL Albumin/Globulin Ratio 0.4 (1.0-2.7) L Stool Occult Blood Negative (NEGATIVE) Arterial Blood pH 7.474 (7.350-7.450) Arterial Blood Partial Pressure CO2 41.5 mmHg (35.0-45.0) Arterial Blood Partial Pressure O2 113.7 mmHg (75.0-100.0) H Arterial Blood HCO3 29.8 mmol/L (22.0-26.0) H Arterial Blood Oxygen Saturation 97.6 % (95-100) Arterial Blood Base Excess 5.7 (-2-2) H Alvaro Test Positive Plan Problems: (1) Lactic acidosis (2) Bradycardia (3) Renal failure (4) Shock liver (5) Chronic respiratory failure (6) Hyperkalemia (7) Anemia (8) Electrolyte imbalance (9) Sepsis Assessment & Plan: leukocytosis anemia shock liver elevated lft's decubitus ulcer respiratory insufficiency decubitus ulcers cont abx local wound care diet as tolerated tf turn q2h wean support s tolerated Pt presented on admission with multiple Skin breakdown.Scattered Senile purpuras both upper extremities. Category 3 Skin Tear R antecubital/R lateral elbow with 100% Flap loss. Base of wound is hallie with scattered Biofilm.. Edges are macerated with surrounding purpura. MASD upper L back. Affected area is reg pink with scattered satellite lesions that mostly dry with Few lesions noted to have small amt sanguineous exudate. Sacral DTPI (L)5.5cm x (W)6.5cm. Base of Pressure Injury is indurated with , Maroon with purpuric area at sacrococcygeal area. Scattered dry plaques noted to L Buttocks. Scrotum and medial/upper aspects of both thighs are erythematous. R Heel is boggy with non-Blanchable erythema. L Heel is boggy with non-blanchable erythema. DTPI Lateral R Malleolus (L)1.5cm x (W)1cm. Non-Blanchable erythema R Hallux. Distal /lateral L foot/L 5th metatarsal is boggy with non-blanchable erythema. Tx.Plan: Cleanse Skin Tear R arm with Saline. Cover with Versatel One Contact layer drsg. Apply Silvasorb gel. Cover with Optifoam drsg. Change every 7 days and prn. Apply Triad Paste to Rash L upper back daily and prn. Leave open to air. Apply Moisture Barrier Paste to Sacrum. Cover with Optifoam drsg. Change every 3 days and prn. Apply Moisture Barrier Paste to scrotum and Medial/Posterior Aspects fo both Upper thighs with each incontinence care. Reposition at least every 2hours or as tolerated. Off-load heels with pillow. APM/EULALIA Mattress overlay. (10) Shock (11) NSTEMI (non-ST elevated myocardial infarction) (12) Aspiration pneumonia (13) Tracheostomy complication (14) HTN (hypertension) (15) Tracheostomy malfunction (16) NIURKA (acute kidney injury) (17) Renal failure (ARF), acute on chronic (18) Elevated LFTs Yousuf Samayoa Mar 19, 2020 16:30
--- NOTE | 2020-03-19 19:15 | NUR ---
NURSE NOTES: Received patient from Tyra ALCARAZ. Patient is obtunded. sinus rhythm on the monitor HR 79. trach to vent at prescribed settings, tolerating well. Gtube and tube feeding currently on hold due to residual 100ml at change of shift, will resume when residual has decreased. aggarwal catheter in place and draining well to gravity. bed to lowest position and locked, side rails up x2. call light within easy reach. Will continue plan of care.
--- NOTE | 2020-03-19 19:43 | NUR ---
NURSE HAND-OFF REPORT: Important Events on Shift:None Patient Status: Full code Diet: Vital AF 1.2 @ 75 cc/hr Pending Orders: N Pending Results/Labs:N Pending MD notification:N Latest Vital Signs: Temperature 100.0 , Pulse 81 , B/P 180 /86 , Respiratory Rate 22 , O2 SAT 99 , Mechanical Ventilator, O2 Flow Rate 40.0 . Vital Sign Comment: stable EKG Rhythm: Sinus Rhythm Rhythm change?: N MD Notified?: N - Dr Jhonny RICARDO Response: pt now on cardizem gtt Latest Wall Fall Score: 75 Fall Risk: High Risk Safety Measures: Call light Within Reach, Bed Alarm Zone 3, Side Rails Side Rails x3, Bed position Low and Locked. Fall Precautions: Yellow Socks Yellow Gown Door Sign Patient Fall Education Report given to LISSA Zimmerman.
[2020-03-19 20:00] VITALS: BP 146/69
[2020-03-19] MEDS: Dyna-Hex 2% Top Sol 2oz TOPIC SCH (20:29)
--- NOTE | 2020-03-19 20:34 | NUR ---
NURSE NOTES: patient had 10ml residual and flushed. resumed tube feeding
--- NOTE | 2020-03-19 21:09 | NUR ---
NURSE NOTES: notes patient had a temp of 101.3. tylenol given and cooling measures applied. Will reasses
--- NOTE | 2020-03-19 21:46 | Neurology Progress Note ---
Interim History Interim History ROS Limited/Unobtainable: Yes - s/p trach Interim History non verbal agitated at times Objective Physical Exam Last Vital Signs Date Time Temp Pulse Resp B/P (MAP) Pulse Ox O2 Delivery O2 Flow Rate FiO2 03/19/20 21:13 81 146/69 03/19/20 20:00 35 03/19/20 20:00 Mechanical Ventilator Mechanical Ventilator 03/19/20 20:00 101.3 20 99 03/15/20 03:51 40.0 Laboratory Tests Test 03/19/20 04:00 03/19/20 05:30 03/19/20 10:20 White Blood Count 15.7 K/UL (4.8-10.8) H Red Blood Count 2.89 M/UL (4.70-6.10) L Hemoglobin 9.0 G/DL (14.2-18.0) L Hematocrit 27.6 % (42.0-52.0) L Mean Corpuscular Volume 96 FL (80-99) Mean Corpuscular Hemoglobin 31.2 PG (27.0-31.0) H Mean Corpuscular Hemoglobin Concent 32.6 G/DL (32.0-36.0) Red Cell Distribution Width 16.6 % (11.6-14.8) H Platelet Count 154 K/UL (150-450) Mean Platelet Volume 9.0 FL (6.5-10.1) Neutrophils (%) (Auto) % (45.0-75.0) Lymphocytes (%) (Auto) % (20.0-45.0) Monocytes (%) (Auto) % (1.0-10.0) Eosinophils (%) (Auto) % (0.0-3.0) Basophils (%) (Auto) % (0.0-2.0) Differential Total Cells Counted 100 Neutrophils % (Manual) 90 % (45-75) H Lymphocytes % (Manual) 2 % (20-45) L Monocytes % (Manual) 6 % (1-10) Eosinophils % (Manual) 2 % (0-3) Basophils % (Manual) 0 % (0-2) Band Neutrophils 0 % (0-8) Platelet Estimate Adequate Platelet Morphology Normal Polychromasia 1+ Hypochromasia 1+ Anisocytosis 1+ Sodium Level 139 MMOL/L (136-145) Potassium Level 4.5 MMOL/L (3.5-5.1) Chloride Level 106 MMOL/L (98-107) Carbon Dioxide Level 32 MMOL/L (21-32) Anion Gap 1 mmol/L (5-15) L Blood Urea Nitrogen 28 mg/dL (7-18) H Creatinine 0.8 MG/DL (0.55-1.30) Estimat Glomerular Filtration Rate > 60 mL/min (>60) Glucose Level 115 MG/DL (74-106) H Calcium Level 7.7 MG/DL (8.5-10.1) L Total Bilirubin 1.5 MG/DL (0.2-1.0) H Direct Bilirubin 1.1 MG/DL (0.0-0.3) H Aspartate Amino Transf (AST/SGOT) 111 U/L (15-37) H Alanine Aminotransferase (ALT/SGPT) 660 U/L (12-78) H Alkaline Phosphatase 86 U/L (46-116) Total Protein 6.2 G/DL (6.4-8.2) L Albumin 1.9 G/DL (3.4-5.0) L Globulin 4.3 g/dL Albumin/Globulin Ratio 0.4 (1.0-2.7) L Stool Occult Blood Negative (NEGATIVE) Arterial Blood pH 7.474 (7.350-7.450) Arterial Blood Partial Pressure CO2 41.5 mmHg (35.0-45.0) Arterial Blood Partial Pressure O2 113.7 mmHg (75.0-100.0) H Arterial Blood HCO3 29.8 mmol/L (22.0-26.0) H Arterial Blood Oxygen Saturation 97.6 % (95-100) Arterial Blood Base Excess 5.7 (-2-2) H Alvaro Test Positive Neurologic Exam Mental Status: awake Objective somnolent open eyes, agitated right sided parkinsonism, withdraws all 4. 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 parkinsonism on exam ,likely vascular icu monitoring map >65 cards following cont atb cont heparin eeg no seizures ct brain noted. Winston Brown MD Mar 19, 2020 21:46
--- NOTE | 2020-03-19 22:09 | NUR ---
NURSE NOTES: patient temp currently 99.3 will continue to monitor
[2020-03-20] VITALS: BP 133/64
--- NOTE | 2020-03-20 00:10 | NUR ---
NURSE NOTES: patient is asleep. vital signs stable
[2020-03-20] MEDS: Meropenem 1 GM in NS 55 ML IVPB SCH ×3 (02:01→19:34)
[2020-03-20 04:00] VITALS: BP 159/75
[2020-03-20 05:54] LABS: BASOPHILS % (AUTO) 0.3 % (0.0-2.0); EOSINOPHILS % (AUTO) 6.1 % (0.0-3.0); HEMATOCRIT 25.5 % (42.0-52.0); HEMOGLOBIN 8.4 G/DL (14.2-18.0); LYMPHOCYTES % (AUTO) 6.3 % (20.0-45.0); MEAN CORPUSCULAR VOLUME 94 FL (80-99); NEUTROPHILS % (AUTO) 80.2 % (45.0-75.0); PLATELET COUNT 126 K/UL (150-450); RED BLOOD COUNT 2.73 M/UL (4.70-6.10); WHITE BLOOD COUNT 10.8 K/UL (4.8-10.8)
--- NOTE | 2020-03-20 05:57 | Pulmonology Progress Note ---
Subjective ROS Limited/Unobtainable: Yes - s/p trach Interval Events: None new reported Constitutional: Reports: no symptoms HEENT: Repors: no symptoms Respiratory: Reports: no symptoms Cardiovascular: Reports: no symptoms Gastrointestinal/Abdominal: Reports: no symptoms Genitourinary: Reports: no symptoms Allergies: Coded Allergies: No Known Allergies (Unverified , 02/11/20) All Systems: reviewed and negative except above Objective Last 24 Hour Vital Signs Date Time Temp Pulse Resp B/P (MAP) Pulse Ox O2 Delivery O2 Flow Rate FiO2 03/20/20 04:00 35 03/20/20 04:00 75 03/20/20 04:00 98.4 77 24 159/75 (103) 100 03/20/20 04:00 Mechanical Ventilator Mechanical Ventilator 03/20/20 03:21 73 26 35 03/20/20 00:00 98.1 65 19 133/64 (87) 99 03/20/20 00:00 Mechanical Ventilator Mechanical Ventilator 03/20/20 00:00 64 03/19/20 23:43 64 17 35 03/19/20 22:12 99.3 03/19/20 21:13 81 146/69 03/19/20 20:00 35 03/19/20 20:00 Mechanical Ventilator Mechanical Ventilator 03/19/20 20:00 81 03/19/20 20:00 101.3 82 20 146/69 (94) 99 03/19/20 18:38 81 22 35 03/19/20 16:30 180/86 03/19/20 16:25 100.0 88 24 180/86 (117) 99 03/19/20 16:00 Mechanical Ventilator Mechanical Ventilator 03/19/20 16:00 35 03/19/20 16:00 76 03/19/20 15:10 76 22 35 03/19/20 13:53 80 154/77 03/19/20 12:00 Mechanical Ventilator Mechanical Ventilator 03/19/20 12:00 76 03/19/20 12:00 99.3 74 22 139/61 (87) 99 03/19/20 12:00 35 03/19/20 11:02 78 17 35 03/19/20 08:29 100.9 03/19/20 08:00 Mechanical Ventilator Mechanical Ventilator 03/19/20 08:00 35 03/19/20 08:00 77 03/19/20 08:00 100.3 82 23 165/80 (108) 100 03/19/20 07:02 76 20 35 03/19/20 06:02 76 138/64 Intake and Output 03/19/20 03/20/20 19:00 07:00 Intake Total 835 ml 495 ml Output Total 1000 ml Balance -165 ml 495 ml Intake Free Water 120 ml IV Total 55 ml 55 ml Tube Feeding 660 ml 440 ml Output Urine Total 1000 ml General Appearance: no acute distress HEENT: normocephalic, mucous membranes moist, status post trach Respiratory: chest wall non-tender, other - coarse lung sounds Cardiovascular: normal peripheral pulses, normal rate Abdomen: normal bowel sounds, other - s/p G tube Genitourinary: other - Johnson Extremities: other - 1+ pitting edema Laboratory Tests 03/19/20 10:20: Arterial Blood pH 7.474H, Arterial Blood Partial Pressure CO2 41.5, Arterial Blood Partial Pressure O2 113.7H, Arterial Blood HCO3 29.8H, Arterial Blood Oxygen Saturation 97.6, Arterial Blood Base Excess 5.7H, Alvaro Test Positive 03/20/20 05:09: White Blood Count [Pending], Red Blood Count [Pending], Hemoglobin [Pending], Hematocrit [Pending], Mean Corpuscular Volume [Pending], Mean Corpuscular Hemoglobin [Pending], Mean Corpuscular Hemoglobin Concent [Pending], Red Cell Distribution Width [Pending], Platelet Count [Pending], Mean Platelet Volume [Pending], Neutrophils (%) (Auto) [Pending], Lymphocytes (%) (Auto) [Pending], Monocytes (%) (Auto) [Pending], Eosinophils (%) (Auto) [Pending], Basophils (%) (Auto) [Pending], Sodium Level [Pending], Potassium Level [Pending], Chloride Level [Pending], Carbon Dioxide Level [Pending], Blood Urea Nitrogen [Pending], Creatinine [Pending], Estimat Glomerular Filtration Rate [Pending], Glucose Level [Pending], Calcium Level [Pending], Phosphorus Level [Pending], Magnesium Level [Pending], Total Bilirubin [Pending], Aspartate Amino Transf (AST/SGOT) [Pending], Alanine Aminotransferase (ALT/SGPT) [Pending], Alkaline Phosphatase [Pending], Total Protein [Pending], Albumin [Pending], Globulin [Pending] Current Medications Medications (Trade) Dose Ordered Sig/Natalia Route PRN Reason Start Time Stop Time Status Last Admin Dose Admin Acetaminophen (Tylenol) 650 mg Q4H PRN GT Mild Pain 03/17/20 06:15 04/16/20 06:14 03/18/20 10:15 Acetaminophen (Tylenol) 650 mg Q4H PRN GT fever 03/17/20 06:30 04/16/20 06:29 03/19/20 21:03 Bisacodyl (Dulcolax) 10 mg DAILYPRN PRN RECTAL Constipation 03/13/20 22:45 06/11/20 22:44 Chlorhexidine Gluconate (Shirley-Hex 2%) 1 applic DAILY@2000 TOPIC 03/18/20 20:00 06/16/20 19:59 03/19/20 20:29 Clonidine HCl (Catapres Tab) 0.1 mg Q2H PRN ORAL For High Blood Pressure 03/16/20 11:30 06/14/20 11:29 03/19/20 16:30 Dextrose (Dextrose 50%) 25 ml Q30M PRN IV Hypoglycemia 03/13/20 22:45 06/11/20 22:44 Dextrose (Dextrose 50%) 50 ml Q30M PRN IV Hypoglycemia 03/13/20 22:45 06/11/20 22:44 Diltiazem HCl (Cardizem Tab) 90 mg EVERY 8 HOURS GT 03/18/20 11:00 04/17/20 10:59 03/19/20 21:13 Docusate Sodium (Colace) 100 mg Q12HR ORAL 03/15/20 10:00 04/14/20 09:59 03/19/20 20:29 Enalaprilat (Vasotec) 1.25 mg Q3H PRN IV For High Blood Pressure 03/16/20 11:30 04/15/20 11:29 Heparin Sodium (Porcine) (Heparin 5000 units/ml) 5,000 units EVERY 12 HOURS SUBQ 03/14/20 09:00 04/28/20 08:59 03/19/20 20:30 Meropenem 1 gm/ Sodium Chloride 55 ml @ 110 mls/hr Q8H IVPB 03/17/20 11:00 03/22/20 10:59 03/20/20 02:01 Morphine Sulfate (Morphine Sulfate) 2 mg Q3H PRN IVP Moderate Pain (Pain Scale 4-6) 03/13/20 22:45 03/20/20 22:44 Morphine Sulfate (Morphine Sulfate) 4 mg Q3H PRN IVP Severe Pain (Pain Scale 7-10) 03/13/20 22:45 03/20/20 22:44 03/19/20 00:21 Ondansetron HCl (Zofran) 4 mg Q6H PRN IVP Nausea & Vomiting 03/13/20 22:45 04/12/20 22:44 Pantoprazole (Protonix) 40 mg Q12HR IV 03/14/20 21:00 04/13/20 08:59 03/19/20 20:29 Assessment/Plan Assessment/Plan IMPRESSION: 1.Bilateral pulmonary infiltrates. 2. Pneumonia, healthcare associated. 3. Bacteremia with gram-negative rods. 4. UTI with gram-negative rods. 5. Negative COVID-19 rapid gene assay. 6. Chronic respiratory failure. 7. Seizure disorder. 8. Liver cirrhosis. 9. Paroxysmal atrial fibrillation. DISCUSSION: Agree with current medications and care. I will continue assist-control mechanical ventilation. ABG is adequate. I will decrease FiO2 as tolerated. 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 Discussed with Dr. Danielle. Seen in [facility] Kandy Golden Omar Syed MD Mar 20, 2020 05:57
[2020-03-20 06:07] LABS: ALANINE AMINOTRANSFERASE 423 U/L (12-78); ALBUMIN 1.7 G/DL (3.4-5.0); ALBUMIN/GLOBULIN RATIO 0.4 (1.0-2.7); ALKALINE PHOSPHATASE 80 U/L (46-116); ASPARTATE AMINO TRANSFERASE 72 U/L (15-37); BILIRUBIN,TOTAL 1.5 MG/DL (0.2-1.0); BLOOD UREA NITROGEN 24 mg/dL (7-18); CALCIUM 7.6 MG/DL (8.5-10.1); CARBON DIOXIDE 35 MMOL/L (21-32); CHLORIDE 109 MMOL/L (98-107); CREATININE 0.7 MG/DL (0.55-1.30); PHOSPHORUS 1.5 MG/DL (2.5-4.9); POTASSIUM 3.7 MMOL/L (3.5-5.1); SODIUM 142 MMOL/L (136-145)
[2020-03-20 06:19] LABS: ANION GAP 0 mmol/L (5-15)
[2020-03-20 06:20] LABS: BILIRUBIN,DIRECT 1.2 MG/DL (0.0-0.3)
[2020-03-20] MEDS: dilTIAZem HCl 90mg tab GT SCH ×3 (06:20→21:37)
--- NOTE | 2020-03-20 07:00 | NUR ---
NURSE NOTES: Received report from Erasmo ALCARAZ.
--- NOTE | 2020-03-20 07:00 | NUR ---
NURSE HAND-OFF REPORT: Important Events on Shift: Fever 101.3. gave tylenol now patient is afebrile Patient Status: FULL CODE Diet: glucerna 1.5 55ml/hr Pending Orders: [] Pending Results/Labs:[] Pending MD notification:[] Latest Vital Signs: Temperature 98.4 , Pulse 75 , B/P 159 /75 , Respiratory Rate 24 , O2 SAT 100 , Mechanical Ventilator, O2 Flow Rate 40.0 . Vital Sign Comment: stable EKG Rhythm: Sinus Rhythm Rhythm change?: N Notified?: N - Dr Jhonny RICARDO Response: pt now on cardizem gtt Latest Wall Fall Score: 75 Fall Risk: High Risk Safety Measures: Call light Within Reach, Bed Alarm Zone 3, Side Rails Side Rails x3, Bed position Low and Locked. Fall Precautions: Yellow Socks Yellow Gown Door Sign Patient Fall Education Report given to LISSA Hall.
[2020-03-20 08:00] VITALS: BP 144/58
--- NOTE | 2020-03-20 08:20 | NUR ---
NURSE NOTES: Pt. in bed, obtunded. No sign of distress. Mech vent dependent with setting AC14/VT500/Fi O2 at 35%/P5. No grimacing noted. HOB elevated at all times. On GTF in placed patent/intact running Glucerna 1.5 at 55cc/hr. Tolerating well. No n/v noted. F/C in placed patent/intact draining yellow colored urine. PICC line at left upper arm with 2 lumen in placed patent/intact. Bed in low position, locked. Call light within reach. Will cont. to monitor.
[2020-03-20] MEDS: Heparin 5000 units/ml inj SUBQ SCH ×2 (09:00→21:00)
[2020-03-20] MEDS: Pantoprazole Inj IV SCH ×2 (09:04→21:37)
[2020-03-20] MEDS: Docusate 100mg/10ml Liq ORAL SCH ×2 (09:04→21:37)
--- NOTE | 2020-03-20 09:10 | NUR ---
NURSE NOTES: Seen by Dr. Longoria with new orders for Mg. 1gm x 3 and K+ phos x 2 bags. Orders noted and carried out.
--- NOTE | 2020-03-20 09:15 | General Progress Note ---
Subjective ROS Limited/Unobtainable: No Allergies: Coded Allergies: No Known Allergies (Unverified , 02/11/20) Objective Last 24 Hour Vital Signs Date Time Temp Pulse Resp B/P (MAP) Pulse Ox O2 Delivery O2 Flow Rate FiO2 03/20/20 08:00 97.3 64 19 144/58 (86) 100 03/20/20 07:27 79 21 35 03/20/20 06:20 75 159/75 03/20/20 04:00 35 03/20/20 04:00 75 03/20/20 04:00 98.4 77 24 159/75 (103) 100 03/20/20 04:00 Mechanical Ventilator Mechanical Ventilator 03/20/20 03:21 73 26 35 03/20/20 00:00 98.1 65 19 133/64 (87) 99 03/20/20 00:00 Mechanical Ventilator Mechanical Ventilator 03/20/20 00:00 64 03/19/20 23:43 64 17 35 03/19/20 22:12 99.3 03/19/20 21:13 81 146/69 03/19/20 20:00 35 03/19/20 20:00 Mechanical Ventilator Mechanical Ventilator 03/19/20 20:00 81 03/19/20 20:00 101.3 82 20 146/69 (94) 99 03/19/20 18:38 81 22 35 03/19/20 16:30 180/86 03/19/20 16:25 100.0 88 24 180/86 (117) 99 03/19/20 16:00 Mechanical Ventilator Mechanical Ventilator 03/19/20 16:00 35 03/19/20 16:00 76 03/19/20 15:10 76 22 35 03/19/20 13:53 80 154/77 03/19/20 12:00 Mechanical Ventilator Mechanical Ventilator 03/19/20 12:00 76 03/19/20 12:00 99.3 74 22 139/61 (87) 99 03/19/20 12:00 35 03/19/20 11:02 78 17 35 Intake and Output 03/19/20 03/20/20 19:00 07:00 Intake Total 835 ml 690 ml Output Total 1000 ml 1000 ml Balance -165 ml -310 ml Intake Free Water 120 ml 30 ml IV Total 55 ml 55 ml Tube Feeding 660 ml 605 ml Output Urine Total 1000 ml 1000 ml Laboratory Tests 03/19/20 10:20: Arterial Blood pH 7.474H, Arterial Blood Partial Pressure CO2 41.5, Arterial Blood Partial Pressure O2 113.7H, Arterial Blood HCO3 29.8H, Arterial Blood Oxygen Saturation 97.6, Arterial Blood Base Excess 5.7H, Alvaro Test Positive 03/20/20 05:09: White Blood Count 10.8, Red Blood Count 2.73L, Hemoglobin 8.4L, Hematocrit 25.5L , Mean Corpuscular Volume 94, Mean Corpuscular Hemoglobin 30.9, Mean Corpuscular Hemoglobin Concent 32.9, Red Cell Distribution Width 18.0H, Platelet Count 126L, Mean Platelet Volume 9.6, Neutrophils (%) (Auto) 80.2H, Lymphocytes (%) (Auto) 6.3L, Monocytes (%) (Auto) 7.0, Eosinophils (%) (Auto) 6.1H, Basophils (%) (Auto) 0.3, Sodium Level 142, Potassium Level 3.7, Chloride Level 109H, Carbon Dioxide Level 35H, Anion Gap 0L, Blood Urea Nitrogen 24H, Creatinine 0.7, Estimat Glomerular Filtration Rate > 60, Glucose Level 120H, Calcium Level 7.6L, Phosphorus Level 1.5L, Magnesium Level 1.6L, Total Bilirubin 1.5H, Direct Bilirubin 1.2H, Aspartate Amino Transf (AST/SGOT) 72H, Alanine Aminotransferase (ALT/SGPT) 423H, Alkaline Phosphatase 80, Total Protein 6.1L, Albumin 1.7L, Globulin 4.4, Albumin/Globulin Ratio 0.4L Height (Feet): 6 Weight (Pounds): 185 General Appearance: no apparent distress EENT: normal ENT inspection Neck: supple Cardiovascular: normal rate Respiratory/Chest: decreased breath sounds Abdomen: normal bowel sounds, non tender, soft Extremities: non-tender Assessment/Plan Problem List: (1) Elevated LFTs ICD Codes: R79.89 - Other specified abnormal findings of blood chemistry SNOMED: 228217583, 497962792 (2) HTN (hypertension) ICD Codes: I10 - Essential (primary) hypertension SNOMED: 28959217 (3) Tracheostomy complication ICD Codes: J95.00 - Unspecified tracheostomy complication SNOMED: 50027860 (4) Anemia ICD Codes: D64.9 - Anemia, unspecified SNOMED: 994294756 (5) Shock liver ICD Codes: K72.00 - Acute and subacute hepatic failure without coma SNOMED: 965967644 Status: unchanged Assessment/Plan: abd ua reviewed LFTS improving hepatitis panel neg repeat LFTS in am anemia work up \ GTF monitor for residuals Velasquez Donahue MD Mar 20, 2020 09:15
[2020-03-20] MEDS: Potassium Phosphate 15mm/250ml 250 ML IVPB SCH ×2 (11:08→15:41)
--- NOTE | 2020-03-20 11:57 | General Progress Note ---
Subjective Date patient seen: Mar 20, 2020 Time patient seen: 11:30 ROS Limited/Unobtainable: Yes Allergies: Coded Allergies: No Known Allergies (Unverified , 02/11/20) Subjective non verbal Objective Last 24 Hour Vital Signs Date Time Temp Pulse Resp B/P (MAP) Pulse Ox O2 Delivery O2 Flow Rate FiO2 03/20/20 11:24 76 16 35 03/20/20 08:13 64 03/20/20 08:00 97.3 64 19 144/58 (86) 100 03/20/20 08:00 35 03/20/20 08:00 Mechanical Ventilator Mechanical Ventilator 03/20/20 07:27 79 21 35 03/20/20 06:20 75 159/75 03/20/20 04:00 35 03/20/20 04:00 75 03/20/20 04:00 98.4 77 24 159/75 (103) 100 03/20/20 04:00 Mechanical Ventilator Mechanical Ventilator 03/20/20 03:21 73 26 35 03/20/20 00:00 98.1 65 19 133/64 (87) 99 03/20/20 00:00 Mechanical Ventilator Mechanical Ventilator 03/20/20 00:00 64 03/19/20 23:43 64 17 35 03/19/20 22:12 99.3 03/19/20 21:13 81 146/69 03/19/20 20:00 35 03/19/20 20:00 Mechanical Ventilator Mechanical Ventilator 03/19/20 20:00 81 03/19/20 20:00 101.3 82 20 146/69 (94) 99 03/19/20 18:38 81 22 35 03/19/20 16:30 180/86 03/19/20 16:25 100.0 88 24 180/86 (117) 99 03/19/20 16:00 Mechanical Ventilator Mechanical Ventilator 03/19/20 16:00 35 03/19/20 16:00 76 03/19/20 15:10 76 22 35 03/19/20 13:53 80 154/77 03/19/20 12:00 Mechanical Ventilator Mechanical Ventilator 03/19/20 12:00 76 03/19/20 12:00 99.3 74 22 139/61 (87) 99 03/19/20 12:00 35 Intake and Output 03/19/20 03/20/20 19:00 07:00 Intake Total 835 ml 690 ml Output Total 1000 ml 1000 ml Balance -165 ml -310 ml Intake Free Water 120 ml 30 ml IV Total 55 ml 55 ml Tube Feeding 660 ml 605 ml Output Urine Total 1000 ml 1000 ml Laboratory Tests 03/20/20 05:09: White Blood Count 10.8, Red Blood Count 2.73L, Hemoglobin 8.4L, Hematocrit 25.5L , Mean Corpuscular Volume 94, Mean Corpuscular Hemoglobin 30.9, Mean Corpuscular Hemoglobin Concent 32.9, Red Cell Distribution Width 18.0H, Platelet Count 126L, Mean Platelet Volume 9.6, Neutrophils (%) (Auto) 80.2H, Lymphocytes (%) (Auto) 6.3L, Monocytes (%) (Auto) 7.0, Eosinophils (%) (Auto) 6.1H, Basophils (%) (Auto) 0.3, Sodium Level 142, Potassium Level 3.7, Chloride Level 109H, Carbon Dioxide Level 35H, Anion Gap 0L, Blood Urea Nitrogen 24H, Creatinine 0.7, Estimat Glomerular Filtration Rate > 60, Glucose Level 120H, Calcium Level 7.6L, Phosphorus Level 1.5L, Magnesium Level 1.6L, Total Bilirubin 1.5H, Direct Bilirubin 1.2H, Aspartate Amino Transf (AST/SGOT) 72H, Alanine Aminotransferase (ALT/SGPT) 423H, Alkaline Phosphatase 80, Total Protein 6.1L, Albumin 1.7L, Globulin 4.4, Albumin/Globulin Ratio 0.4L Height (Feet): 6 Weight (Pounds): 185 General Appearance: WD/WN, obese EENT: PERRL/EOMI Neck: other - trach Respiratory/Chest: decreased breath sounds Abdomen: non tender, other - peg Genitourinary/Rectal: other - aggarwal Edema: trace edema Objective CLINICAL HISTORY: ABN LABS TECHNIQUE: Real-time ultrasound of the abdomen with image documentation. COMPARISON: Abdominal ultrasound on 02/17/2020 FINDINGS: Liver: Left liver not visualized. Liver measures 13.0 cm. No focal lesion. Gallbladder: No gallbladder wall thickening or pericholecystic fluid. No definite stones or sludge. Common bile duct: Normal common bile duct measuring 5.2 mm. No stones. No dilation. Pancreas: Pancreas could not be visualized due to presence of bandaging. Kidneys: Right kidney measures 8.3 cm in length. No hydronephrosis or stone. Left kidney measures 10.3 cm in length. No hydronephrosis or stone. Spleen: Spleen measures 8.9 cm. Aorta: Not visualized. Inferior vena cava: Not visualized. Other vasculature: Patent main portal vein with normal direction of flow. Free fluid: No ascites. IMPRESSION: No acute findings in the abdomen. 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 # Bradycardia - Junctional rhythym on admission, resolved. # NSTEMI - Serial troponin with decreasing titter noted. TTE Initial EKG showed junctional bradycardia and prolonged QRS/QT interval conc erning for hyperkalemia. Patient's HR in the ER was 40 worsened into heart rate in the 20s with subsequent hypotension /. Patient was treated with calcium, magnesium, bicarb at bedside due to concern for hyperkalemia. Atropine and Epi given in the ER. Dopamine gtt titration started in the ED. Cardiology consultation requested with Dr. Barry and telemetry showed Atrial Fibrillation with RVR 03/15/20. Diltiazem gtt started and now adjusted to Cadizem 60 mg q 6 hr, GT and now telemetry shows stable heart rate. Continue CCB therapy. #Sepsis consistent with ventilator associated pneumonia. Tracheostomy is in place Broad sp antibiotic started and WBC improving and less than 20K now GNR in all blood culture bottles noted today. ID consultation requested with Dr Hines. Vancomycin stopped. Zosyn stopped 03/17 and Meropenem started by ID needs 7 day course. / DAY. Per ID At discharge will plan on Ertapenem 1 gr day. ESBL E. Coli and Proteus M noted in cultures Treat fever with cooling measures. Temp 100.9 03/19 and BCx sent and R femoral line removed / new PICC placed 03/19 Today T 97.3 R Femoral line removed 03/19 # Hyperkalemia on admission Treated medically. Renal consulation requested with Dr. Laguerre # Hypomagnesemia Replete # Hypophosphatemia Replet # History of L renal mass by US 02/17/20 # NIURKA on CKD Creatinine decreasing and possibly due to severe urinary retention which was relieved in the ED after aggarwal insertion. Monitor I/O's Renal consultation appreciated. Patient has sacral ulcers and incontinence of urine will worsen the wounds. Will keep Aggarwal for now. He does not have proper anatomy for condom cath and will be incontinent. #Elevated LFT's and prior history of cirrhosis # Shock liver due to hypotension Trend LFT's GI consultation if persistent LFT elevation noted. 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 I discussed with family and they reported that the patient is full care trach/peg since original CVA, he is NOT ambulatory and non verbal which is his current state now. Line Central line Diet Tube feeds. DVT ppx GI ppx FULL CODE Family was called 03/15 and they are hopeful that the patient will return to his prior baseline. I updated the daughter about cardiac, renal, lung, liver current status and high complexity and morbidity mortality for the patient. C discussion follow up will be needed pending on clinical progress. DISPO: [place] [facility] when medically stable and cleared by ID team. Va Danielle MD Mar 20, 2020 11:57
[2020-03-20 12:00] VITALS: BP 137/69
--- NOTE | 2020-03-20 12:00 | NUR ---
NURSE NOTES: Seen by Dr. Danielle and updated him that pt. afebrile since start of the shift. Per Dr. Danielle if culture negative for the fem. cath that got removed pt. will be d/c back to SNF. Pt. remain stable.
--- NOTE | 2020-03-20 12:10 | Nephrology Progress Note ---
Assessment/Plan Problem List: (1) NIURKA (acute kidney injury) (2) Renal failure (ARF), acute on chronic (3) HTN (hypertension) (4) Sepsis (5) Elevated LFTs Assessment Acute renal failure secondary to urinary outlet obstruction Electrolyte abnormalities, hyperkalemia Chronic respiratory failure trach and vent dependent History of atrial fibrillation PEG Anemia Patient presented with low blood pressure and shock liver Plan March 20: Labs reviewed. Abnormal electrolytes addressed. Continue to monitor electrolytes. March 19: Labs reviewed. Discussed with Dr. Danielle. Stable from renal standpoint of view. Continues to have trach, PEG, Johnson. Trial of discontinuation of Johnson can be done in-house or as an outpatient. March 18: Labs reviewed. Abnormal electrolytes addressed per orders. Continue per consultants. D5W IV fluid is discontinued March 17: Renal parameters improved. Abnormal electrolyte noted reviewed and addressed. Continue per current management. Discussed with RN. March 16: Renal parameters improved. Abnormal electrolytes addressed. Blood pressure controlled. Continue per current management. March 15: Hydrate and change IV to D5W. Add Norvasc for high blood pressure. Continue to monitor renal parameters and electrolytes. Can start GT feeding. Discussed with RN. March 14: Hydrate As needed hydralazine for high or high blood pressure Monitor electrolyte Treatment of underlying sepsis Per orders Subjective ROS Limited/Unobtainable: Yes Objective Objective Last 24 Hour Vital Signs Date Time Temp Pulse Resp B/P (MAP) Pulse Ox O2 Delivery O2 Flow Rate FiO2 03/20/20 11:24 76 16 35 03/20/20 08:13 64 03/20/20 08:00 97.3 64 19 144/58 (86) 100 03/20/20 08:00 35 03/20/20 08:00 Mechanical Ventilator Mechanical Ventilator 03/20/20 07:27 79 21 35 03/20/20 06:20 75 159/75 03/20/20 04:00 35 03/20/20 04:00 75 03/20/20 04:00 98.4 77 24 159/75 (103) 100 03/20/20 04:00 Mechanical Ventilator Mechanical Ventilator 03/20/20 03:21 73 26 35 03/20/20 00:00 98.1 65 19 133/64 (87) 99 03/20/20 00:00 Mechanical Ventilator Mechanical Ventilator 03/20/20 00:00 64 03/19/20 23:43 64 17 35 03/19/20 22:12 99.3 03/19/20 21:13 81 146/69 03/19/20 20:00 35 03/19/20 20:00 Mechanical Ventilator Mechanical Ventilator 03/19/20 20:00 81 03/19/20 20:00 101.3 82 20 146/69 (94) 99 03/19/20 18:38 81 22 35 03/19/20 16:30 180/86 03/19/20 16:25 100.0 88 24 180/86 (117) 99 03/19/20 16:00 Mechanical Ventilator Mechanical Ventilator 03/19/20 16:00 35 03/19/20 16:00 76 03/19/20 15:10 76 22 35 03/19/20 13:53 80 154/77 Intake and Output 03/19/20 03/20/20 19:00 07:00 Intake Total 835 ml 690 ml Output Total 1000 ml 1000 ml Balance -165 ml -310 ml Intake Free Water 120 ml 30 ml IV Total 55 ml 55 ml Tube Feeding 660 ml 605 ml Output Urine Total 1000 ml 1000 ml Laboratory Tests 03/20/20 05:09: White Blood Count 10.8, Red Blood Count 2.73L, Hemoglobin 8.4L, Hematocrit 25.5L , Mean Corpuscular Volume 94, Mean Corpuscular Hemoglobin 30.9, Mean Corpuscular Hemoglobin Concent 32.9, Red Cell Distribution Width 18.0H, Platelet Count 126L, Mean Platelet Volume 9.6, Neutrophils (%) (Auto) 80.2H, Lymphocytes (%) (Auto) 6.3L, Monocytes (%) (Auto) 7.0, Eosinophils (%) (Auto) 6.1H, Basophils (%) (Auto) 0.3, Sodium Level 142, Potassium Level 3.7, Chloride Level 109H, Carbon Dioxide Level 35H, Anion Gap 0L, Blood Urea Nitrogen 24H, Creatinine 0.7, Estimat Glomerular Filtration Rate > 60, Glucose Level 120H, Calcium Level 7.6L, Phosphorus Level 1.5L, Magnesium Level 1.6L, Total Bilirubin 1.5H, Direct Bilirubin 1.2H, Aspartate Amino Transf (AST/SGOT) 72H, Alanine Aminotransferase (ALT/SGPT) 423H, Alkaline Phosphatase 80, Total Protein 6.1L, Albumin 1.7L, Globulin 4.4, Albumin/Globulin Ratio 0.4L Height (Feet): 6 Weight (Pounds): 185 General Appearance: no apparent distress EENT: other - On mechanical ventilation Cardiovascular: normal rate Respiratory/Chest: decreased breath sounds Abdomen: distended Tano Longoria MD Mar 20, 2020 12:10
[2020-03-20 16:00] VITALS: BP 146/79
--- NOTE | 2020-03-20 16:07 | Cardiac Electrophysiology PN ---
Assessment/Plan Assessment/Plan 1. Profound bradycardia, heart rate dropping to 20s associated with hypotension due to the hyperkalemia and metoprolol. The metoprolol has been discontinued and the patient received atropine and hyperkalemia was treated. Currently, he is not bradycardic despite Cardizem. 2. Troponin elevation 0.2, 0.4, 0.2, likely due to demand ischemia in this patient with severe sepsis and septic shock. EF 55% 3. Initial hypotension and shock. Likely due to sepsis. White count is improving and the patient is now off both Levophed and dopamine. 4. Hypertension. Within 24 hours, his blood pressure improved from 70 to 200s. Cannot use NNAMDI inhibitor or angiotensin-receptor blockers in view of hyperkalemia and acute renal failure either. On Cardizem and prn vasotec and clonidine 5. Atrial fib with RVR. On Cardizem 90 q 8 6. Ventilator-dependent respiratory failure, status post tracheostomy. 7. Dysphagia, status post PEG placement. 8. CVA with hemiplegia. 9. Pressure ulcers. 10. Anemia. 11. Shock liver. LELAND RN Subjective Subjective On the Vent via trach with 35% Fio2 and PEEP 5. Troponins flat and low Off Cardizem 60 q 6 via PEG Had Fever 101.3 again today . Atrial fib converted to SR Objective Last 24 Hour Vital Signs Date Time Temp Pulse Resp B/P (MAP) Pulse Ox O2 Delivery O2 Flow Rate FiO2 03/20/20 15:18 77 19 35 03/20/20 14:24 70 137/69 03/20/20 12:00 97.0 70 20 137/69 (91) 100 03/20/20 12:00 Mechanical Ventilator Mechanical Ventilator 03/20/20 12:00 35 03/20/20 11:48 70 03/20/20 11:24 76 16 35 03/20/20 08:13 64 03/20/20 08:00 97.3 64 19 144/58 (86) 100 03/20/20 08:00 35 03/20/20 08:00 Mechanical Ventilator Mechanical Ventilator 03/20/20 07:27 79 21 35 03/20/20 06:20 75 159/75 03/20/20 04:00 35 03/20/20 04:00 75 03/20/20 04:00 98.4 77 24 159/75 (103) 100 03/20/20 04:00 Mechanical Ventilator Mechanical Ventilator 03/20/20 03:21 73 26 35 03/20/20 00:00 98.1 65 19 133/64 (87) 99 03/20/20 00:00 Mechanical Ventilator Mechanical Ventilator 03/20/20 00:00 64 03/19/20 23:43 64 17 35 03/19/20 22:12 99.3 03/19/20 21:13 81 146/69 03/19/20 20:00 35 03/19/20 20:00 Mechanical Ventilator Mechanical Ventilator 03/19/20 20:00 81 03/19/20 20:00 101.3 82 20 146/69 (94) 99 03/19/20 18:38 81 22 35 03/19/20 16:30 180/86 03/19/20 16:25 100.0 88 24 180/86 (117) 99 Intake and Output 03/19/20 03/20/20 19:00 07:00 Intake Total 835 ml 745 ml Output Total 1000 ml 1000 ml Balance -165 ml -255 ml Intake Free Water 120 ml 30 ml IV Total 55 ml 55 ml Tube Feeding 660 ml 660 ml Output Urine Total 1000 ml 1000 ml Laboratory Tests Test 03/20/20 05:09 White Blood Count 10.8 K/UL (4.8-10.8) Red Blood Count 2.73 M/UL (4.70-6.10) L Hemoglobin 8.4 G/DL (14.2-18.0) L Hematocrit 25.5 % (42.0-52.0) L Mean Corpuscular Volume 94 FL (80-99) Mean Corpuscular Hemoglobin 30.9 PG (27.0-31.0) Mean Corpuscular Hemoglobin Concent 32.9 G/DL (32.0-36.0) Red Cell Distribution Width 18.0 % (11.6-14.8) H Platelet Count 126 K/UL (150-450) L Mean Platelet Volume 9.6 FL (6.5-10.1) Neutrophils (%) (Auto) 80.2 % (45.0-75.0) H Lymphocytes (%) (Auto) 6.3 % (20.0-45.0) L Monocytes (%) (Auto) 7.0 % (1.0-10.0) Eosinophils (%) (Auto) 6.1 % (0.0-3.0) H Basophils (%) (Auto) 0.3 % (0.0-2.0) Sodium Level 142 MMOL/L (136-145) Potassium Level 3.7 MMOL/L (3.5-5.1) Chloride Level 109 MMOL/L (98-107) H Carbon Dioxide Level 35 MMOL/L (21-32) H Anion Gap 0 mmol/L (5-15) L Blood Urea Nitrogen 24 mg/dL (7-18) H Creatinine 0.7 MG/DL (0.55-1.30) Estimat Glomerular Filtration Rate > 60 mL/min (>60) Glucose Level 120 MG/DL (74-106) H Calcium Level 7.6 MG/DL (8.5-10.1) L Phosphorus Level 1.5 MG/DL (2.5-4.9) L Magnesium Level 1.6 MG/DL (1.8-2.4) L Total Bilirubin 1.5 MG/DL (0.2-1.0) H Direct Bilirubin 1.2 MG/DL (0.0-0.3) H Aspartate Amino Transf (AST/SGOT) 72 U/L (15-37) H Alanine Aminotransferase (ALT/SGPT) 423 U/L (12-78) H Alkaline Phosphatase 80 U/L (46-116) Total Protein 6.1 G/DL (6.4-8.2) L Albumin 1.7 G/DL (3.4-5.0) L Globulin 4.4 g/dL Albumin/Globulin Ratio 0.4 (1.0-2.7) L Objective HEAD AND NECK: No JVD. Status post tracheostomy. LUNGS: Coarse rhonchi. CARDIOVASCULAR: Regular S1 and S2 with no gallop. ABDOMEN: Status post G-tube. EXTREMITIES: 1+ pitting edema. Liang Barry MD Mar 20, 2020 16:06
--- NOTE | 2020-03-20 17:54 | Surgery Progress Note ---
Surgery Progress Note Subjective Additional Comments labs noted micro reviewed exam stable no n/v/f/c Objective Last 24 Hour Vital Signs Date Time Temp Pulse Resp B/P (MAP) Pulse Ox O2 Delivery O2 Flow Rate FiO2 03/20/20 15:18 77 19 35 03/20/20 14:24 70 137/69 03/20/20 12:00 97.0 70 20 137/69 (91) 100 03/20/20 12:00 Mechanical Ventilator Mechanical Ventilator 03/20/20 12:00 35 03/20/20 11:48 70 03/20/20 11:24 76 16 35 03/20/20 08:13 64 03/20/20 08:00 97.3 64 19 144/58 (86) 100 03/20/20 08:00 35 03/20/20 08:00 Mechanical Ventilator Mechanical Ventilator 03/20/20 07:27 79 21 35 03/20/20 06:20 75 159/75 03/20/20 04:00 35 03/20/20 04:00 75 03/20/20 04:00 98.4 77 24 159/75 (103) 100 03/20/20 04:00 Mechanical Ventilator Mechanical Ventilator 03/20/20 03:21 73 26 35 03/20/20 00:00 98.1 65 19 133/64 (87) 99 03/20/20 00:00 Mechanical Ventilator Mechanical Ventilator 03/20/20 00:00 64 03/19/20 23:43 64 17 35 03/19/20 22:12 99.3 03/19/20 21:13 81 146/69 03/19/20 20:00 35 03/19/20 20:00 Mechanical Ventilator Mechanical Ventilator 03/19/20 20:00 81 03/19/20 20:00 101.3 82 20 146/69 (94) 99 03/19/20 18:38 81 22 35 I&O Intake and Output 03/19/20 03/20/20 19:00 07:00 Intake Total 835 ml 745 ml Output Total 1000 ml 1000 ml Balance -165 ml -255 ml Intake Free Water 120 ml 30 ml IV Total 55 ml 55 ml Tube Feeding 660 ml 660 ml Output Urine Total 1000 ml 1000 ml Dressing: saturated Cardiovascular: RSR Respiratory: decreased breath sounds Abdomen: non-tender, present bowel sounds Extremities: no edema, no tenderness, no cyanosis Laboratory Tests Test 03/20/20 05:09 White Blood Count 10.8 K/UL (4.8-10.8) Red Blood Count 2.73 M/UL (4.70-6.10) L Hemoglobin 8.4 G/DL (14.2-18.0) L Hematocrit 25.5 % (42.0-52.0) L Mean Corpuscular Volume 94 FL (80-99) Mean Corpuscular Hemoglobin 30.9 PG (27.0-31.0) Mean Corpuscular Hemoglobin Concent 32.9 G/DL (32.0-36.0) Red Cell Distribution Width 18.0 % (11.6-14.8) H Platelet Count 126 K/UL (150-450) L Mean Platelet Volume 9.6 FL (6.5-10.1) Neutrophils (%) (Auto) 80.2 % (45.0-75.0) H Lymphocytes (%) (Auto) 6.3 % (20.0-45.0) L Monocytes (%) (Auto) 7.0 % (1.0-10.0) Eosinophils (%) (Auto) 6.1 % (0.0-3.0) H Basophils (%) (Auto) 0.3 % (0.0-2.0) Sodium Level 142 MMOL/L (136-145) Potassium Level 3.7 MMOL/L (3.5-5.1) Chloride Level 109 MMOL/L (98-107) H Carbon Dioxide Level 35 MMOL/L (21-32) H Anion Gap 0 mmol/L (5-15) L Blood Urea Nitrogen 24 mg/dL (7-18) H Creatinine 0.7 MG/DL (0.55-1.30) Estimat Glomerular Filtration Rate > 60 mL/min (>60) Glucose Level 120 MG/DL (74-106) H Calcium Level 7.6 MG/DL (8.5-10.1) L Phosphorus Level 1.5 MG/DL (2.5-4.9) L Magnesium Level 1.6 MG/DL (1.8-2.4) L Total Bilirubin 1.5 MG/DL (0.2-1.0) H Direct Bilirubin 1.2 MG/DL (0.0-0.3) H Aspartate Amino Transf (AST/SGOT) 72 U/L (15-37) H Alanine Aminotransferase (ALT/SGPT) 423 U/L (12-78) H Alkaline Phosphatase 80 U/L (46-116) Total Protein 6.1 G/DL (6.4-8.2) L Albumin 1.7 G/DL (3.4-5.0) L Globulin 4.4 g/dL Albumin/Globulin Ratio 0.4 (1.0-2.7) L Plan Problems: (1) Lactic acidosis (2) Bradycardia (3) Renal failure (4) Shock liver (5) Chronic respiratory failure (6) Hyperkalemia (7) Anemia (8) Electrolyte imbalance (9) Sepsis Assessment & Plan: leukocytosis anemia shock liver elevated lft's decubitus ulcer respiratory insufficiency decubitus ulcers cont abx local wound care diet as tolerated tf turn q2h wean support s tolerated Pt presented on admission with multiple Skin breakdown.Scattered Senile purpuras both upper extremities. Category 3 Skin Tear R antecubital/R lateral elbow with 100% Flap loss. Base of wound is hallie with scattered Biofilm.. Edges are macerated with surrounding purpura. MASD upper L back. Affected area is reg pink with scattered satellite lesions that mostly dry with Few lesions noted to have small amt sanguineous exudate. Sacral DTPI (L)5.5cm x (W)6.5cm. Base of Pressure Injury is indurated with , Maroon with purpuric area at sacrococcygeal area. Scattered dry plaques noted to L Buttocks. Scrotum and medial/upper aspects of both thighs are erythematous. R Heel is boggy with non-Blanchable erythema. L Heel is boggy with non-blanchable erythema. DTPI Lateral R Malleolus (L)1.5cm x (W)1cm. Non-Blanchable erythema R Hallux. Distal /lateral L foot/L 5th metatarsal is boggy with non-blanchable erythema. Tx.Plan: Cleanse Skin Tear R arm with Saline. Cover with Versatel One Contact layer drsg. Apply Silvasorb gel. Cover with Optifoam drsg. Change every 7 days and prn. Apply Triad Paste to Rash L upper back daily and prn. Leave open to air. Apply Moisture Barrier Paste to Sacrum. Cover with Optifoam drsg. Change every 3 days and prn. Apply Moisture Barrier Paste to scrotum and Medial/Posterior Aspects fo both Upper thighs with each incontinence care. Reposition at least every 2hours or as tolerated. Off-load heels with pillow. APM/EULALIA Mattress overlay. (10) Shock (11) NSTEMI (non-ST elevated myocardial infarction) (12) Aspiration pneumonia (13) Tracheostomy complication (14) HTN (hypertension) (15) Tracheostomy malfunction (16) NIURKA (acute kidney injury) (17) Renal failure (ARF), acute on chronic (18) Elevated LFTs Yousuf Samayoa Mar 20, 2020 17:54
--- NOTE | 2020-03-20 18:48 | NUR ---
RESPIRATORY NOTE: Received pt on AC VC 14, 500VT, 35%, PEEP +5. Pt is trach-dependent w/ a cuffed, Portex 7 tube. Pt asleep/disoriented. B/S niko. rhonchi, sxn small amounts of thick, kerr-yellow secretions. Vent plugged into red outlet, ambubag at bedside. Pt in no apparent distress at this time. Will continue plan of care.
--- NOTE | 2020-03-20 19:13 | NUR ---
NURSE HAND-OFF REPORT: Important Events on Shift: Mg.1gm x 5 bags and K+ phos 15mm x [address] Danielle once the blood culture negative plan for d/c back to SNF. Patient Status: stable. afebrile Diet: Glucerna 1.2 Pending Orders: N Pending Results/Labs: CBC, MG. PHOS Pending MD notification:N Latest Vital Signs: Temperature 97.9 , Pulse 78 , B/P 146 /79 , Respiratory Rate 21 , O2 SAT 99 , Mechanical Ventilator, O2 Flow Rate 40.0 . Vital Sign Comment: WNL EKG Rhythm: Sinus Rhythm Rhythm change?: N MD Notified?: N - Dr Jhonny RICARDO Response: Latest Wall Fall Score: 75 Fall Risk: High Risk Safety Measures: Call light Within Reach, Bed Alarm Zone 3, Side Rails Side Rails x3, Bed position Low and Locked. Fall Precautions: Yellow Socks Yellow Gown Door Sign Patient Fall Education Report given to Arnold Carson RN .
[2020-03-20 20:00] VITALS: BP 151/75
--- NOTE | 2020-03-20 21:00 | NUR ---
NURSE NOTES: Patient is asleep but easily arousable. No sign of distress or discomfort noted. Tolerating vent settings well. Will continue to monitor.
[2020-03-20] MEDS: Dyna-Hex 2% Top Sol 2oz TOPIC SCH (21:37)
--- NOTE | 2020-03-20 23:51 | Neurology Progress Note ---
Interim History Interim History ROS Limited/Unobtainable: Yes Interim History no new deficits Objective Physical Exam Last Vital Signs Date Time Temp Pulse Resp B/P (MAP) Pulse Ox O2 Delivery O2 Flow Rate FiO2 03/20/20 23:05 77 23 35 03/20/20 21:37 151/75 03/20/20 20:00 98.2 100 03/20/20 20:00 Mechanical Ventilator Mechanical Ventilator 03/15/20 03:51 40.0 Laboratory Tests Test 03/20/20 05:09 White Blood Count 10.8 K/UL (4.8-10.8) Red Blood Count 2.73 M/UL (4.70-6.10) L Hemoglobin 8.4 G/DL (14.2-18.0) L Hematocrit 25.5 % (42.0-52.0) L Mean Corpuscular Volume 94 FL (80-99) Mean Corpuscular Hemoglobin 30.9 PG (27.0-31.0) Mean Corpuscular Hemoglobin Concent 32.9 G/DL (32.0-36.0) Red Cell Distribution Width 18.0 % (11.6-14.8) H Platelet Count 126 K/UL (150-450) L Mean Platelet Volume 9.6 FL (6.5-10.1) Neutrophils (%) (Auto) 80.2 % (45.0-75.0) H Lymphocytes (%) (Auto) 6.3 % (20.0-45.0) L Monocytes (%) (Auto) 7.0 % (1.0-10.0) Eosinophils (%) (Auto) 6.1 % (0.0-3.0) H Basophils (%) (Auto) 0.3 % (0.0-2.0) Sodium Level 142 MMOL/L (136-145) Potassium Level 3.7 MMOL/L (3.5-5.1) Chloride Level 109 MMOL/L (98-107) H Carbon Dioxide Level 35 MMOL/L (21-32) H Anion Gap 0 mmol/L (5-15) L Blood Urea Nitrogen 24 mg/dL (7-18) H Creatinine 0.7 MG/DL (0.55-1.30) Estimat Glomerular Filtration Rate > 60 mL/min (>60) Glucose Level 120 MG/DL (74-106) H Calcium Level 7.6 MG/DL (8.5-10.1) L Phosphorus Level 1.5 MG/DL (2.5-4.9) L Magnesium Level 1.6 MG/DL (1.8-2.4) L Total Bilirubin 1.5 MG/DL (0.2-1.0) H Direct Bilirubin 1.2 MG/DL (0.0-0.3) H Aspartate Amino Transf (AST/SGOT) 72 U/L (15-37) H Alanine Aminotransferase (ALT/SGPT) 423 U/L (12-78) H Alkaline Phosphatase 80 U/L (46-116) Total Protein 6.1 G/DL (6.4-8.2) L Albumin 1.7 G/DL (3.4-5.0) L Globulin 4.4 g/dL Albumin/Globulin Ratio 0.4 (1.0-2.7) L Neurologic Exam Mental Status: awake Objective somnolent open eyes right sided parkinsonism, withdraws all 4. 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 parkinsonism on exam ,likely vascular map >65 cards following cont atb cont heparin eeg no seizures ct brain noted. pt as able Winston Brown MD Mar 20, 2020 23:51
[2020-03-21] VITALS: BP 154/78
--- NOTE | 2020-03-21 | NUR ---
NURSE NOTES: Patient continues to sleep. No changes noted. No distress noted. Turned and repositioned according to schedule. Will continue to monitor.
--- NOTE | 2020-03-21 03:00 | NUR ---
NURSE NOTES: Patient asleep. Tolerating vent settings well. No sign of distress noted. Will continue to monitor.
[2020-03-21] MEDS: Meropenem 1 GM in NS 55 ML IVPB SCH ×3 (03:29→19:47)
[2020-03-21 04:00] VITALS: BP 142/92
[2020-03-21] MEDS: dilTIAZem HCl 90mg tab GT SCH ×3 (06:00→21:20)
[2020-03-21 07:04] LABS: HEMATOCRIT 26.9 % (42.0-52.0); HEMOGLOBIN 8.9 G/DL (14.2-18.0); MEAN CORPUSCULAR VOLUME 93 FL (80-99); PLATELET COUNT 147 K/UL (150-450); RED BLOOD COUNT 2.89 M/UL (4.70-6.10); RED CELL DISTRIBUTION WIDTH 17.5 % (11.6-14.8); WHITE BLOOD COUNT 9.4 K/UL (4.8-10.8)
--- NOTE | 2020-03-21 07:05 | NUR ---
NURSE HAND-OFF REPORT: Important Events on Shift:IV starts Patient Status: Stable Diet: GT Pending Orders: Pending Results/Labs: Pending MD notification: Latest Vital Signs: Temperature 98.6 , Pulse 98 , B/P 142 /92 , Respiratory Rate 24 , O2 SAT 100 , Mechanical Ventilator, O2 Flow Rate 40.0 . Vital Sign Comment: WNL EKG Rhythm: Sinus Rhythm Rhythm change?: N MD Notified?: N - Dr Jhonny RICARDO Response: pt now on cardizem gtt Latest Wall Fall Score: 75 Fall Risk: High Risk Safety Measures: Call light Within Reach, Bed Alarm Zone 3, Side Rails Side Rails x3, Bed position Low and Locked. Fall Precautions: Yellow Socks Yellow Gown Door Sign Patient Fall Education Report given to LISSA Hall.
--- NOTE | 2020-03-21 07:10 | NUR ---
NURSE NOTES: Received report from Arnold Carson RN.
[2020-03-21 07:13] LABS: PHOSPHORUS 2.2 MG/DL (2.5-4.9)
[2020-03-21 07:19] LABS: ALANINE AMINOTRANSFERASE 318 U/L (12-78); ALBUMIN 1.6 G/DL (3.4-5.0); ALBUMIN/GLOBULIN RATIO 0.3 (1.0-2.7); ALKALINE PHOSPHATASE 83 U/L (46-116); ANION GAP 2 mmol/L (5-15); ASPARTATE AMINO TRANSFERASE 59 U/L (15-37); BILIRUBIN,TOTAL 1.6 MG/DL (0.2-1.0); BLOOD UREA NITROGEN 24 mg/dL (7-18); CALCIUM 7.8 MG/DL (8.5-10.1); CARBON DIOXIDE 34 MMOL/L (21-32); CHLORIDE 109 MMOL/L (98-107); CREATININE 0.7 MG/DL (0.55-1.30); POTASSIUM 4.1 MMOL/L (3.5-5.1); SODIUM 145 MMOL/L (136-145)
[2020-03-21 07:21] LABS: BILIRUBIN,DIRECT 1.4 MG/DL (0.0-0.3)
--- NOTE | 2020-03-21 07:45 | NUR ---
NURSE NOTES: Pt. in bed, obtunded, non-verbal. No sign of distress. Mech. vent dependent with setting AC14/VT500/Fi O2 of 35%/P5. No grimacing noted. F/C in placed patent/intact draining jacque colored urine. HOB elevated at all times. On GTF Glucerna 1.5 at 55cc/hr. No n/v noted. Feeding tolerating well. PICC line with 2 lumen at left upper arm in placed patent/intact. Bed in low position, locked. Call light within reach. Will cont. to monitor.
[2020-03-21 08:00] VITALS: BP 150/73
--- NOTE | 2020-03-21 09:09 | Pulmonology Progress Note ---
Subjective ROS Limited/Unobtainable: Yes Interval Events: None new reported Constitutional: Reports: no symptoms HEENT: Repors: no symptoms Respiratory: Reports: no symptoms Cardiovascular: Reports: no symptoms Gastrointestinal/Abdominal: Reports: no symptoms Genitourinary: Reports: no symptoms Allergies: Coded Allergies: No Known Allergies (Unverified , 02/11/20) All Systems: reviewed and negative except above Objective Last 24 Hour Vital Signs Date Time Temp Pulse Resp B/P (MAP) Pulse Ox O2 Delivery O2 Flow Rate FiO2 03/21/20 08:00 99.0 66 18 150/73 (98) 100 03/21/20 07:25 80 17 35 03/21/20 06:00 98 142/92 03/21/20 04:00 98.6 98 24 142/92 (109) 100 03/21/20 04:00 35 03/21/20 04:00 Mechanical Ventilator Mechanical Ventilator 03/21/20 03:41 100 03/21/20 02:56 83 25 35 03/21/20 00:00 Mechanical Ventilator Mechanical Ventilator 03/21/20 00:00 98.6 71 24 154/78 (103) 100 03/21/20 00:00 65 03/21/20 00:00 35 03/20/20 23:05 77 23 35 03/20/20 21:37 74 151/75 03/20/20 20:00 98.2 74 22 151/75 (100) 100 03/20/20 20:00 Mechanical Ventilator Mechanical Ventilator 03/20/20 20:00 35 03/20/20 20:00 75 03/20/20 18:45 78 21 35 03/20/20 16:00 Mechanical Ventilator Mechanical Ventilator 03/20/20 16:00 35 03/20/20 16:00 97.9 71 17 146/79 (101) 99 03/20/20 15:32 86 03/20/20 15:18 77 19 35 03/20/20 14:24 70 137/69 03/20/20 12:00 97.0 70 20 137/69 (91) 100 03/20/20 12:00 Mechanical Ventilator Mechanical Ventilator 03/20/20 12:00 35 03/20/20 11:48 70 03/20/20 11:24 76 16 35 Intake and Output 03/20/20 03/21/20 19:00 07:00 Intake Total 910 ml 1160 ml Output Total 1200 ml 900 ml Balance -290 ml 260 ml Intake Free Water 250 ml 500 ml Tube Feeding 660 ml 660 ml Output Urine Total 1200 ml 900 ml General Appearance: no acute distress HEENT: normocephalic, mucous membranes moist, status post trach Respiratory: chest wall non-tender, other - coarse lung sounds Cardiovascular: normal peripheral pulses, normal rate Abdomen: normal bowel sounds, other - s/p G tube Genitourinary: other - Johnson Extremities: other - 1+ pitting edema Laboratory Tests 03/21/20 06:30: White Blood Count 9.4, Red Blood Count 2.89L, Hemoglobin 8.9L, Hematocrit 26.9L, Mean Corpuscular Volume 93, Mean Corpuscular Hemoglobin 30.8, Mean Corpuscular Hemoglobin Concent 33.0, Red Cell Distribution Width 17.5H, Platelet Count 147L, Mean Platelet Volume 10.1, Neutrophils (%) (Auto) , Lymphocytes (%) (Auto) , Monocytes (%) (Auto) , Eosinophils (%) (Auto) , Basophils (%) (Auto) , Neutrophils % (Manual) [Pending], Lymphocytes % (Manual) [Pending], Platelet Estimate [Pending], Platelet Morphology [Pending], Sodium Level 145, Potassium Level 4.1, Chloride Level 109H, Carbon Dioxide Level 34H, Anion Gap 2L, Blood Urea Nitrogen 24H, Creatinine 0.7, Estimat Glomerular Filtration Rate > 60, Glucose Level 104, Calcium Level 7.8L, Phosphorus Level 2.2L, Magnesium Level 2.0, Total Bilirubin 1.6H, Direct Bilirubin 1.4H, Aspartate Amino Transf (AST/SGOT) 59H, Alanine Aminotransferase (ALT/SGPT) 318H, Alkaline Phosphatase 83, Total Protein 6.2L, Albumin 1.6L, Globulin 4.6, Albumin/Globulin Ratio 0.3L Current Medications Medications (Trade) Dose Ordered Sig/Natalia Route PRN Reason Start Time Stop Time Status Last Admin Dose Admin Acetaminophen (Tylenol) 650 mg Q4H PRN GT Mild Pain 03/17/20 06:15 04/16/20 06:14 03/18/20 10:15 Acetaminophen (Tylenol) 650 mg Q4H PRN GT fever 03/17/20 06:30 04/16/20 06:29 03/19/20 21:03 Bisacodyl (Dulcolax) 10 mg DAILYPRN PRN RECTAL Constipation 03/13/20 22:45 06/11/20 22:44 Chlorhexidine Gluconate (Shirley-Hex 2%) 1 applic DAILY@2000 TOPIC 03/18/20 20:00 06/16/20 19:59 03/20/20 21:37 Clonidine HCl (Catapres Tab) 0.1 mg Q2H PRN ORAL For High Blood Pressure 03/16/20 11:30 06/14/20 11:29 03/19/20 16:30 Dextrose (Dextrose 50%) 25 ml Q30M PRN IV Hypoglycemia 03/13/20 22:45 06/11/20 22:44 Dextrose (Dextrose 50%) 50 ml Q30M PRN IV Hypoglycemia 03/13/20 22:45 06/11/20 22:44 Diltiazem HCl (Cardizem Tab) 90 mg EVERY 8 HOURS GT 03/18/20 11:00 04/17/20 10:59 03/21/20 06:00 Docusate Sodium (Colace) 100 mg Q12HR ORAL 03/15/20 10:00 04/14/20 09:59 03/20/20 21:37 Enalaprilat (Vasotec) 1.25 mg Q3H PRN IV For High Blood Pressure 03/16/20 11:30 04/15/20 11:29 Heparin Sodium (Porcine) (Heparin 5000 units/ml) 5,000 units EVERY 12 HOURS SUBQ 03/14/20 09:00 04/28/20 08:59 03/19/20 20:30 Meropenem 1 gm/ Sodium Chloride 55 ml @ 110 mls/hr Q8H IVPB 03/17/20 11:00 03/22/20 10:59 03/21/20 03:29 Ondansetron HCl (Zofran) 4 mg Q6H PRN IVP Nausea & Vomiting 03/13/20 22:45 04/12/20 22:44 Pantoprazole (Protonix) 40 mg Q12HR IV 03/14/20 21:00 04/13/20 08:59 03/20/20 21:37 Assessment/Plan Assessment/Plan IMPRESSION: 1.Bilateral pulmonary infiltrates. 2. Pneumonia, healthcare associated. 3. Bacteremia with gram-negative rods. 4. UTI with gram-negative rods. 5. Negative COVID-19 rapid gene assay. 6. Chronic respiratory failure. 7. Seizure disorder. 8. Liver cirrhosis. 9. Paroxysmal atrial fibrillation. DISCUSSION: Agree with current medications and care. I will continue assist-control mechanical ventilation. ABG is adequate. Abx per ID/DR Danielle I will decrease FiO2 as tolerated. 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 Discussed with Dr. Danielle. Seen in [place] [facility] Omar Syed MD Mar 21, 2020 09:09
[2020-03-21] MEDS: Pantoprazole Inj IV SCH ×2 (09:16→21:20)
[2020-03-21] MEDS: Docusate 100mg/10ml Liq ORAL SCH ×2 (09:16→21:20)
[2020-03-21] MEDS: Heparin 5000 units/ml inj SUBQ SCH ×2 (09:18→21:00)
--- NOTE | 2020-03-21 10:38 | NUR ---
RD ASSESSMENT & RECOMMENDATIONS SEE CARE ACTIVITY FOR COMPLETE ASSESSMENT DAILY ESTIMATED NEEDS: Needs based on Critical care, cardiac/ 75kg abw 22-30 kcals/kg 8975-6596 total kcals 1.25-2 g protein/kg 94-150 g total protein 20-25 mL/kg 0191-8781 total fluid mLs NUTRITION DIAGNOSIS: * Swallowing difficulty R/T respiratory status as evidenced by trach/vent dep, PEG dep. CURRENT TF: Glucerna 1.5 @55ml/hr ENTERAL NUTRITION RECOMMENDATIONS: Glucerna 1.5 @ 55ml/hr x 24 hrs to provide 1320ml, 1980kcal, 109g prot, 1002ml free water * Maintain Glucerna 1.5 @goal as tolerated. Monitor BG and continued need for carb control formula. * TF at goal meets 100% est needs * HOB over 30 degrees/ water flush per MD ADDITIONAL RECOMMENDATIONS: * Calibrated bedscale wt * Wound healing: TF rec @ goal provides 100% RDI MORGAN in 4oz H2O BID via GT * Monitor BGs, need for NISS-> good glycemic control * Lytes wnl-> on repletion . .
--- NOTE | 2020-03-21 10:45 | General Progress Note ---
Subjective ROS Limited/Unobtainable: No Allergies: Coded Allergies: No Known Allergies (Unverified , 02/11/20) Objective Last 24 Hour Vital Signs Date Time Temp Pulse Resp B/P (MAP) Pulse Ox O2 Delivery O2 Flow Rate FiO2 03/21/20 08:00 Mechanical Ventilator Mechanical Ventilator 03/21/20 08:00 99.0 66 18 150/73 (98) 100 03/21/20 08:00 35 03/21/20 07:25 80 17 35 03/21/20 06:00 98 142/92 03/21/20 04:00 98.6 98 24 142/92 (109) 100 03/21/20 04:00 35 03/21/20 04:00 Mechanical Ventilator Mechanical Ventilator 03/21/20 03:41 100 03/21/20 02:56 83 25 35 03/21/20 00:00 Mechanical Ventilator Mechanical Ventilator 03/21/20 00:00 98.6 71 24 154/78 (103) 100 03/21/20 00:00 65 03/21/20 00:00 35 03/20/20 23:05 77 23 35 03/20/20 21:37 74 151/75 03/20/20 20:00 98.2 74 22 151/75 (100) 100 03/20/20 20:00 Mechanical Ventilator Mechanical Ventilator 03/20/20 20:00 35 03/20/20 20:00 75 03/20/20 18:45 78 21 35 03/20/20 16:00 Mechanical Ventilator Mechanical Ventilator 03/20/20 16:00 35 03/20/20 16:00 97.9 71 17 146/79 (101) 99 03/20/20 15:32 86 03/20/20 15:18 77 19 35 03/20/20 14:24 70 137/69 03/20/20 12:00 97.0 70 20 137/69 (91) 100 03/20/20 12:00 Mechanical Ventilator Mechanical Ventilator 03/20/20 12:00 35 03/20/20 11:48 70 03/20/20 11:24 76 16 35 Intake and Output 03/20/20 03/21/20 19:00 07:00 Intake Total 910 ml 1160 ml Output Total 1200 ml 900 ml Balance -290 ml 260 ml Intake Free Water 250 ml 500 ml Tube Feeding 660 ml 660 ml Output Urine Total 1200 ml 900 ml Laboratory Tests 03/21/20 06:30: White Blood Count 9.4, Red Blood Count 2.89L, Hemoglobin 8.9L, Hematocrit 26.9L, Mean Corpuscular Volume 93, Mean Corpuscular Hemoglobin 30.8, Mean Corpuscular Hemoglobin Concent 33.0, Red Cell Distribution Width 17.5H, Platelet Count 147L, Mean Platelet Volume 10.1, Neutrophils (%) (Auto) , Lymphocytes (%) (Auto) , Monocytes (%) (Auto) , Eosinophils (%) (Auto) , Basophils (%) (Auto) , Differential Total Cells Counted 100, Neutrophils % (Manual) 60, Lymphocytes % (Manual) 7L, Monocytes % (Manual) 12H, Eosinophils % (Manual) 21H, Basophils % (Manual) 0, Band Neutrophils 0, Platelet Estimate DecreasedL, Platelet Morphology Normal, Hypochromasia 1+, Anisocytosis 1+, Sodium Level 145, Potassium Level 4.1, Chloride Level 109H, Carbon Dioxide Level 34H, Anion Gap 2L , Blood Urea Nitrogen 24H, Creatinine 0.7, Estimat Glomerular Filtration Rate > 60, Glucose Level 104, Calcium Level 7.8L, Phosphorus Level 2.2L, Magnesium Level 2.0, Total Bilirubin 1.6H, Direct Bilirubin 1.4H, Aspartate Amino Transf (AST/SGOT) 59H, Alanine Aminotransferase (ALT/SGPT) 318H, Alkaline Phosphatase 83, Total Protein 6.2L, Albumin 1.6L, Globulin 4.6, Albumin/Globulin Ratio 0.3L Height (Feet): 6 Weight (Pounds): 185 General Appearance: no apparent distress EENT: normal ENT inspection Neck: supple Cardiovascular: normal rate Respiratory/Chest: decreased breath sounds Abdomen: hypoactive bowel sounds Extremities: non-tender Assessment/Plan Problem List: (1) Elevated LFTs ICD Codes: R79.89 - Other specified abnormal findings of blood chemistry SNOMED: 963628919, 445421606 (2) HTN (hypertension) ICD Codes: I10 - Essential (primary) hypertension SNOMED: 35820250 (3) Tracheostomy complication ICD Codes: J95.00 - Unspecified tracheostomy complication SNOMED: 84166605 (4) Anemia ICD Codes: D64.9 - Anemia, unspecified SNOMED: 463254481 (5) Shock liver ICD Codes: K72.00 - Acute and subacute hepatic failure without coma SNOMED: 828810493 Status: unchanged Assessment/Plan: abd ua reviewed LFTS improving hepatitis panel neg repeat LFTS in am anemia work up \ GTF monitor for residuals Velasquez Donahue MD Mar 21, 2020 10:45
--- NOTE | 2020-03-21 10:48 | NUR ---
CASE MANAGEMENT:REVIEW 03/19/20 SI: PNEUMONIA. UTI TRACH/VENT 99.0 66 18 150/73 100% ON VENT SUPPORT W/35% FIO2 H/H-8.9/26.9 PLT-147 BUN+24 CA-7.8 IS: IV MEROPENEM Q8HRS CARDIZEM GT Q6HRS IV PROTONIX Q12 HEPARIN SQ Q12 : ICU STATUS DCP: FROM [facility] PLAN:
--- NOTE | 2020-03-21 11:03 | Surgery Progress Note ---
Surgery Progress Note Subjective Additional Comments no acute events labs noted exam stable Objective Last 24 Hour Vital Signs Date Time Temp Pulse Resp B/P (MAP) Pulse Ox O2 Delivery O2 Flow Rate FiO2 03/21/20 08:00 Mechanical Ventilator Mechanical Ventilator 03/21/20 08:00 99.0 66 18 150/73 (98) 100 03/21/20 08:00 35 03/21/20 07:25 80 17 35 03/21/20 06:00 98 142/92 03/21/20 04:00 98.6 98 24 142/92 (109) 100 03/21/20 04:00 35 03/21/20 04:00 Mechanical Ventilator Mechanical Ventilator 03/21/20 03:41 100 03/21/20 02:56 83 25 35 03/21/20 00:00 Mechanical Ventilator Mechanical Ventilator 03/21/20 00:00 98.6 71 24 154/78 (103) 100 03/21/20 00:00 65 03/21/20 00:00 35 03/20/20 23:05 77 23 35 03/20/20 21:37 74 151/75 03/20/20 20:00 98.2 74 22 151/75 (100) 100 03/20/20 20:00 Mechanical Ventilator Mechanical Ventilator 03/20/20 20:00 35 03/20/20 20:00 75 03/20/20 18:45 78 21 35 03/20/20 16:00 Mechanical Ventilator Mechanical Ventilator 03/20/20 16:00 35 03/20/20 16:00 97.9 71 17 146/79 (101) 99 03/20/20 15:32 86 03/20/20 15:18 77 19 35 03/20/20 14:24 70 137/69 03/20/20 12:00 97.0 70 20 137/69 (91) 100 03/20/20 12:00 Mechanical Ventilator Mechanical Ventilator 03/20/20 12:00 35 03/20/20 11:48 70 03/20/20 11:24 76 16 35 I&O Intake and Output 03/20/20 03/21/20 19:00 07:00 Intake Total 910 ml 1160 ml Output Total 1200 ml 900 ml Balance -290 ml 260 ml Intake Free Water 250 ml 500 ml Tube Feeding 660 ml 660 ml Output Urine Total 1200 ml 900 ml Dressing: saturated Cardiovascular: RSR Respiratory: decreased breath sounds Abdomen: non-tender, present bowel sounds Extremities: no edema, no tenderness, no cyanosis Laboratory Tests Test 03/21/20 06:30 White Blood Count 9.4 K/UL (4.8-10.8) Red Blood Count 2.89 M/UL (4.70-6.10) L Hemoglobin 8.9 G/DL (14.2-18.0) L Hematocrit 26.9 % (42.0-52.0) L Mean Corpuscular Volume 93 FL (80-99) Mean Corpuscular Hemoglobin 30.8 PG (27.0-31.0) Mean Corpuscular Hemoglobin Concent 33.0 G/DL (32.0-36.0) Red Cell Distribution Width 17.5 % (11.6-14.8) H Platelet Count 147 K/UL (150-450) L Mean Platelet Volume 10.1 FL (6.5-10.1) Neutrophils (%) (Auto) % (45.0-75.0) Lymphocytes (%) (Auto) % (20.0-45.0) Monocytes (%) (Auto) % (1.0-10.0) Eosinophils (%) (Auto) % (0.0-3.0) Basophils (%) (Auto) % (0.0-2.0) Differential Total Cells Counted 100 Neutrophils % (Manual) 60 % (45-75) Lymphocytes % (Manual) 7 % (20-45) L Monocytes % (Manual) 12 % (1-10) H Eosinophils % (Manual) 21 % (0-3) H Basophils % (Manual) 0 % (0-2) Band Neutrophils 0 % (0-8) Platelet Estimate Decreased L Platelet Morphology Normal Hypochromasia 1+ Anisocytosis 1+ Sodium Level 145 MMOL/L (136-145) Potassium Level 4.1 MMOL/L (3.5-5.1) Chloride Level 109 MMOL/L (98-107) H Carbon Dioxide Level 34 MMOL/L (21-32) H Anion Gap 2 mmol/L (5-15) L Blood Urea Nitrogen 24 mg/dL (7-18) H Creatinine 0.7 MG/DL (0.55-1.30) Estimat Glomerular Filtration Rate > 60 mL/min (>60) Glucose Level 104 MG/DL (74-106) Calcium Level 7.8 MG/DL (8.5-10.1) L Phosphorus Level 2.2 MG/DL (2.5-4.9) L Magnesium Level 2.0 MG/DL (1.8-2.4) Total Bilirubin 1.6 MG/DL (0.2-1.0) H Direct Bilirubin 1.4 MG/DL (0.0-0.3) H Aspartate Amino Transf (AST/SGOT) 59 U/L (15-37) H Alanine Aminotransferase (ALT/SGPT) 318 U/L (12-78) H Alkaline Phosphatase 83 U/L (46-116) Total Protein 6.2 G/DL (6.4-8.2) L Albumin 1.6 G/DL (3.4-5.0) L Globulin 4.6 g/dL Albumin/Globulin Ratio 0.3 (1.0-2.7) L Plan Problems: (1) Lactic acidosis (2) Bradycardia (3) Renal failure (4) Shock liver (5) Chronic respiratory failure (6) Hyperkalemia (7) Anemia (8) Electrolyte imbalance (9) Sepsis Assessment & Plan: leukocytosis anemia shock liver elevated lft's decubitus ulcer respiratory insufficiency decubitus ulcers cont abx local wound care diet as tolerated tf turn q2h wean support s tolerated Pt presented on admission with multiple Skin breakdown.Scattered Senile purpuras both upper extremities. Category 3 Skin Tear R antecubital/R lateral elbow with 100% Flap loss. Base of wound is hallie with scattered Biofilm.. Edges are macerated with surrounding purpura. MASD upper L back. Affected area is reg pink with scattered satellite lesions that mostly dry with Few lesions noted to have small amt sanguineous exudate. Sacral DTPI (L)5.5cm x (W)6.5cm. Base of Pressure Injury is indurated with , Maroon with purpuric area at sacrococcygeal area. Scattered dry plaques noted to L Buttocks. Scrotum and medial/upper aspects of both thighs are erythematous. R Heel is boggy with non-Blanchable erythema. L Heel is boggy with non-blanchable erythema. DTPI Lateral R Malleolus (L)1.5cm x (W)1cm. Non-Blanchable erythema R Hallux. Distal /lateral L foot/L 5th metatarsal is boggy with non-blanchable erythema. Tx.Plan: Cleanse Skin Tear R arm with Saline. Cover with Versatel One Contact layer drsg. Apply Silvasorb gel. Cover with Optifoam drsg. Change every 7 days and prn. Apply Triad Paste to Rash L upper back daily and prn. Leave open to air. Apply Moisture Barrier Paste to Sacrum. Cover with Optifoam drsg. Change every 3 days and prn. Apply Moisture Barrier Paste to scrotum and Medial/Posterior Aspects fo both Upper thighs with each incontinence care. Reposition at least every 2hours or as tolerated. Off-load heels with pillow. APM/EULALIA Mattress overlay. (10) Shock (11) NSTEMI (non-ST elevated myocardial infarction) (12) Aspiration pneumonia (13) Tracheostomy complication (14) HTN (hypertension) (15) Tracheostomy malfunction (16) NIURKA (acute kidney injury) (17) Renal failure (ARF), acute on chronic (18) Elevated LFTs Yousuf Samayoa Mar 21, 2020 11:03
--- NOTE | 2020-03-21 11:30 | General Progress Note ---
Subjective Date patient seen: Mar 21, 2020 Time patient seen: 11:20 ROS Limited/Unobtainable: Yes Allergies: Coded Allergies: No Known Allergies (Unverified , 02/11/20) Subjective non verbal Objective Last 24 Hour Vital Signs Date Time Temp Pulse Resp B/P (MAP) Pulse Ox O2 Delivery O2 Flow Rate FiO2 03/21/20 08:00 Mechanical Ventilator Mechanical Ventilator 03/21/20 08:00 99.0 66 18 150/73 (98) 100 03/21/20 08:00 35 03/21/20 07:25 80 17 35 03/21/20 06:00 98 142/92 03/21/20 04:00 98.6 98 24 142/92 (109) 100 03/21/20 04:00 35 03/21/20 04:00 Mechanical Ventilator Mechanical Ventilator 03/21/20 03:41 100 03/21/20 02:56 83 25 35 03/21/20 00:00 Mechanical Ventilator Mechanical Ventilator 03/21/20 00:00 98.6 71 24 154/78 (103) 100 03/21/20 00:00 65 03/21/20 00:00 35 03/20/20 23:05 77 23 35 03/20/20 21:37 74 151/75 03/20/20 20:00 98.2 74 22 151/75 (100) 100 03/20/20 20:00 Mechanical Ventilator Mechanical Ventilator 03/20/20 20:00 35 03/20/20 20:00 75 03/20/20 18:45 78 21 35 03/20/20 16:00 Mechanical Ventilator Mechanical Ventilator 03/20/20 16:00 35 03/20/20 16:00 97.9 71 17 146/79 (101) 99 03/20/20 15:32 86 03/20/20 15:18 77 19 35 03/20/20 14:24 70 137/69 03/20/20 12:00 97.0 70 20 137/69 (91) 100 03/20/20 12:00 Mechanical Ventilator Mechanical Ventilator 03/20/20 12:00 35 03/20/20 11:48 70 03/20/20 11:24 76 16 35 Intake and Output 03/20/20 03/21/20 19:00 07:00 Intake Total 910 ml 1160 ml Output Total 1200 ml 900 ml Balance -290 ml 260 ml Intake Free Water 250 ml 500 ml Tube Feeding 660 ml 660 ml Output Urine Total 1200 ml 900 ml Laboratory Tests 03/21/20 06:30: White Blood Count 9.4, Red Blood Count 2.89L, Hemoglobin 8.9L, Hematocrit 26.9L, Mean Corpuscular Volume 93, Mean Corpuscular Hemoglobin 30.8, Mean Corpuscular Hemoglobin Concent 33.0, Red Cell Distribution Width 17.5H, Platelet Count 147L, Mean Platelet Volume 10.1, Neutrophils (%) (Auto) , Lymphocytes (%) (Auto) , Monocytes (%) (Auto) , Eosinophils (%) (Auto) , Basophils (%) (Auto) , Differential Total Cells Counted 100, Neutrophils % (Manual) 60, Lymphocytes % (Manual) 7L, Monocytes % (Manual) 12H, Eosinophils % (Manual) 21H, Basophils % (Manual) 0, Band Neutrophils 0, Platelet Estimate DecreasedL, Platelet Morphology Normal, Hypochromasia 1+, Anisocytosis 1+, Sodium Level 145, Potassium Level 4.1, Chloride Level 109H, Carbon Dioxide Level 34H, Anion Gap 2L , Blood Urea Nitrogen 24H, Creatinine 0.7, Estimat Glomerular Filtration Rate > 60, Glucose Level 104, Calcium Level 7.8L, Phosphorus Level 2.2L, Magnesium Level 2.0, Total Bilirubin 1.6H, Direct Bilirubin 1.4H, Aspartate Amino Transf (AST/SGOT) 59H, Alanine Aminotransferase (ALT/SGPT) 318H, Alkaline Phosphatase 83, Total Protein 6.2L, Albumin 1.6L, Globulin 4.6, Albumin/Globulin Ratio 0.3L Height (Feet): 6 Weight (Pounds): 185 General Appearance: WD/WN EENT: PERRL/EOMI Neck: other - trach Respiratory/Chest: decreased breath sounds Abdomen: other - peg Edema: trace edema Neurologic: motor weakness Objective CLINICAL HISTORY: ABN LABS TECHNIQUE: Real-time ultrasound of the abdomen with image documentation. COMPARISON: Abdominal ultrasound on 02/17/2020 FINDINGS: Liver: Left liver not visualized. Liver measures 13.0 cm. No focal lesion. Gallbladder: No gallbladder wall thickening or pericholecystic fluid. No definite stones or sludge. Common bile duct: Normal common bile duct measuring 5.2 mm. No stones. No dilation. Pancreas: Pancreas could not be visualized due to presence of bandaging. Kidneys: Right kidney measures 8.3 cm in length. No hydronephrosis or stone. Left kidney measures 10.3 cm in length. No hydronephrosis or stone. Spleen: Spleen measures 8.9 cm. Aorta: Not visualized. Inferior vena cava: Not visualized. Other vasculature: Patent main portal vein with normal direction of flow. Free fluid: No ascites. IMPRESSION: No acute findings in the abdomen. 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 # Bradycardia - Junctional rhythym on admission, resolved. # NSTEMI - Serial troponin with decreasing titter noted. TTE Initial EKG showed junctional bradycardia and prolonged QRS/QT interval concerning for hyperkalemia. Patient's HR in the ER was 40 worsened into heart rate in the 20s with subsequent hypotension /. Patient was treated with calcium, magnesium, bicarb at bedside due to concern for hyperkalemia. Atropine and Epi given in the ER. Dopamine gtt titration started in the ED. Cardiology consultation requested with Dr. Barry and telemetry showed Atrial Fibrillation with RVR 03/15/20. Diltiazem gtt started and now adjusted to Cadizem 60 mg q 6 hr, GT and now telemetry shows stable heart rate. Continue CCB therapy. #Sepsis consistent with ventilator associated pneumonia. Tracheostomy is in place Broad sp antibiotic started and WBC improving and less than 20K now GNR in all blood culture bottles noted today. ID consultation requested with Dr Hines. Vancomycin stopped. Zosyn stopped 03/17 and Meropenem started by ID needs 7 day course. / DAY. Per ID At discharge will plan on Ertapenem 1 gr day. d/W Dr. Bruno. ESBL E. Coli and Proteus M noted in cultures Treat fever with cooling measures. Temp 100.9 03/19 and BCx PENDING and R femoral line removed / new PICC placed 03/19 Today Temp: 99 R Femoral line removed 03/19 # Hyperkalemia on admission Treated medically. Renal consulation requested with Dr. Laguerre # Hypomagnesemia Replete # Hypophosphatemia Replet # History of L renal mass by US 02/17/20 # NIURKA on CKD Creatinine decreasing and possibly due to severe urinary retention which was relieved in the ED after aggarwal insertion. Monitor I/O's Renal consultation appreciated. Patient has sacral ulcers and incontinence of urine will worsen the wounds. Will keep Aggarwal for now. He does not have proper anatomy for condom cath and will be incontinent. #Elevated LFT's and prior history of cirrhosis # Shock liver due to hypotension Trend LFT's GI consultation if persistent LFT elevation noted. 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 I discussed with family and they reported that the patient is full care trach/peg since original CVA, he is NOT ambulatory and non verbal which is his current state now. Line Central line Diet Tube feeds. DVT ppx GI ppx FULL CODE DISPO: [facility] when medically stable and cleared by ID team. Va Danielle MD Mar 21, 2020 11:30
[2020-03-21 12:00] VITALS: BP 150/79
--- NOTE | 2020-03-21 13:53 | Infectious Diseases Prog Note ---
Assessment/Plan 85yo M with: Afebrile Leukocytosis to 21, improved - 03/19Sp Removal of L fem CVC, possible source of fever/leukocytosis GNR bacteremia most likely 2/2 UTI Obstructive uropathy s/p drainage w/ aggarwal 03/13 BCx +P.mirabilis (S-CTX) UCx +ESBL E.coli and ESBL P.mirabilis COVID rapid Ag neg CXR: BL pna Abd US neg 03/15 Resp cx +ESBL E.coli and Serratia marcesens 03/19 BCx ordered ?Mastoiditis, regardless on course of meropenem 03/17 CTH: 1. Loss of hernandez-white differentiation in the left frontal lobe which may represent subacute or chronic infarct, especially given multifocal encephalomalacia. However, in the absence of comparison imaging, further evaluation with MRI is recommended to exclude acute infarct. 2. Large bilateral mastoid effusions; correlation for mastoiditis is recommended. NIURKA, improving Elevated LFTs - AST 1858 / ALT 3987 >> improving Acute hep panel neg Acute on chronic resp failure S/p trach/PEG, vent dependent Prior CVA Hemiplegia Dysphagia Gastroparesis Pressure ulcers Nonverbal SNF resident Plan: Cont meropenem #5/7 to cover for ESBL UTI and bacteremia. Plan for 7 days of meropenem then stop and monitor off abx. On discharge can transition to ertapenem 1g IV daily to complete course Repeat BCx today given fever Trend WBC 03/17 SP Zosyn #3 03/16 SP vanco #2 empiric Monitor CBC/CMP Monitor resp status Monitor temp curve, hemodynamics Cath tip Cx :P ( as per RN) D/w RN Thank you for this consult. [facility] will continue to follow. Subjective Allergies: Coded Allergies: No Known Allergies (Unverified , 02/11/20) afebrile Objective Last 24 Hour Vital Signs Date Time Temp Pulse Resp B/P (MAP) Pulse Ox O2 Delivery O2 Flow Rate FiO2 03/21/20 12:00 97.9 83 16 150/79 (102) 100 03/21/20 12:00 35 03/21/20 12:00 Mechanical Ventilator Mechanical Ventilator 03/21/20 11:45 82 16 35 03/21/20 08:00 Mechanical Ventilator Mechanical Ventilator 03/21/20 08:00 99.0 66 18 150/73 (98) 100 03/21/20 08:00 35 03/21/20 07:54 95 03/21/20 07:25 80 17 35 03/21/20 06:00 98 142/92 03/21/20 04:00 98.6 98 24 142/92 (109) 100 03/21/20 04:00 35 03/21/20 04:00 Mechanical Ventilator Mechanical Ventilator 03/21/20 03:41 100 03/21/20 02:56 83 25 35 03/21/20 00:00 Mechanical Ventilator Mechanical Ventilator 03/21/20 00:00 98.6 71 24 154/78 (103) 100 03/21/20 00:00 65 03/21/20 00:00 35 03/20/20 23:05 77 23 35 03/20/20 21:37 74 151/75 03/20/20 20:00 98.2 74 22 151/75 (100) 100 03/20/20 20:00 Mechanical Ventilator Mechanical Ventilator 03/20/20 20:00 35 03/20/20 20:00 75 03/20/20 18:45 78 21 35 03/20/20 16:00 Mechanical Ventilator Mechanical Ventilator 03/20/20 16:00 35 03/20/20 16:00 97.9 71 17 146/79 (101) 99 03/20/20 15:32 86 03/20/20 15:18 77 19 35 03/20/20 14:24 70 137/69 Height (Feet): 6 Weight (Pounds): 185 HEENT: atraumatic Respiratory/Chest: normal breath sounds Cardiovascular: normal rate Abdomen: soft, non tender Laboratory Tests Test 03/21/20 06:30 White Blood Count 9.4 K/UL (4.8-10.8) Red Blood Count 2.89 M/UL (4.70-6.10) L Hemoglobin 8.9 G/DL (14.2-18.0) L Hematocrit 26.9 % (42.0-52.0) L Mean Corpuscular Volume 93 FL (80-99) Mean Corpuscular Hemoglobin 30.8 PG (27.0-31.0) Mean Corpuscular Hemoglobin Concent 33.0 G/DL (32.0-36.0) Red Cell Distribution Width 17.5 % (11.6-14.8) H Platelet Count 147 K/UL (150-450) L Mean Platelet Volume 10.1 FL (6.5-10.1) Neutrophils (%) (Auto) % (45.0-75.0) Lymphocytes (%) (Auto) % (20.0-45.0) Monocytes (%) (Auto) % (1.0-10.0) Eosinophils (%) (Auto) % (0.0-3.0) Basophils (%) (Auto) % (0.0-2.0) Differential Total Cells Counted 100 Neutrophils % (Manual) 60 % (45-75) Lymphocytes % (Manual) 7 % (20-45) L Monocytes % (Manual) 12 % (1-10) H Eosinophils % (Manual) 21 % (0-3) H Basophils % (Manual) 0 % (0-2) Band Neutrophils 0 % (0-8) Platelet Estimate Decreased L Platelet Morphology Normal Hypochromasia 1+ Anisocytosis 1+ Sodium Level 145 MMOL/L (136-145) Potassium Level 4.1 MMOL/L (3.5-5.1) Chloride Level 109 MMOL/L (98-107) H Carbon Dioxide Level 34 MMOL/L (21-32) H Anion Gap 2 mmol/L (5-15) L Blood Urea Nitrogen 24 mg/dL (7-18) H Creatinine 0.7 MG/DL (0.55-1.30) Estimat Glomerular Filtration Rate > 60 mL/min (>60) Glucose Level 104 MG/DL (74-106) Calcium Level 7.8 MG/DL (8.5-10.1) L Phosphorus Level 2.2 MG/DL (2.5-4.9) L Magnesium Level 2.0 MG/DL (1.8-2.4) Total Bilirubin 1.6 MG/DL (0.2-1.0) H Direct Bilirubin 1.4 MG/DL (0.0-0.3) H Aspartate Amino Transf (AST/SGOT) 59 U/L (15-37) H Alanine Aminotransferase (ALT/SGPT) 318 U/L (12-78) H Alkaline Phosphatase 83 U/L (46-116) Total Protein 6.2 G/DL (6.4-8.2) L Albumin 1.6 G/DL (3.4-5.0) L Globulin 4.6 g/dL Albumin/Globulin Ratio 0.3 (1.0-2.7) L Current Medications Medications (Trade) Dose Ordered Sig/Natalia Route PRN Reason Start Time Stop Time Status Last Admin Dose Admin Acetaminophen (Tylenol) 650 mg Q4H PRN GT Mild Pain 03/17/20 06:15 04/16/20 06:14 03/18/20 10:15 Acetaminophen (Tylenol) 650 mg Q4H PRN GT fever 03/17/20 06:30 04/16/20 06:29 03/19/20 21:03 Bisacodyl (Dulcolax) 10 mg DAILYPRN PRN RECTAL Constipation 03/13/20 22:45 06/11/20 22:44 Chlorhexidine Gluconate (Shirley-Hex 2%) 1 applic DAILY@2000 TOPIC 03/18/20 20:00 06/16/20 19:59 03/20/20 21:37 Clonidine HCl (Catapres Tab) 0.1 mg Q2H PRN ORAL For High Blood Pressure 03/16/20 11:30 06/14/20 11:29 03/19/20 16:30 Dextrose (Dextrose 50%) 25 ml Q30M PRN IV Hypoglycemia 03/13/20 22:45 06/11/20 22:44 Dextrose (Dextrose 50%) 50 ml Q30M PRN IV Hypoglycemia 03/13/20 22:45 06/11/20 22:44 Diltiazem HCl (Cardizem Tab) 90 mg EVERY 8 HOURS GT 03/18/20 11:00 04/17/20 10:59 03/21/20 06:00 Docusate Sodium (Colace) 100 mg Q12HR ORAL 03/15/20 10:00 04/14/20 09:59 03/21/20 09:16 Enalaprilat (Vasotec) 1.25 mg Q3H PRN IV For High Blood Pressure 03/16/20 11:30 04/15/20 11:29 Heparin Sodium (Porcine) (Heparin 5000 units/ml) 5,000 units EVERY 12 HOURS SUBQ 03/14/20 09:00 04/28/20 08:59 03/21/20 09:18 Meropenem 1 gm/ Sodium Chloride 55 ml @ 110 mls/hr Q8H IVPB 03/17/20 11:00 03/22/20 10:59 03/21/20 11:17 Ondansetron HCl (Zofran) 4 mg Q6H PRN IVP Nausea & Vomiting 03/13/20 22:45 04/12/20 22:44 Pantoprazole (Protonix) 40 mg Q12HR IV 03/14/20 21:00 04/13/20 08:59 03/21/20 09:16 Aldo Bruno MD Mar 21, 2020 13:53
--- NOTE | 2020-03-21 14:00 | NUR ---
NURSE NOTES: Seen by Dr. Barry with [facility].
--- NOTE | 2020-03-21 15:36 | Cardiac Electrophysiology PN ---
Assessment/Plan Assessment/Plan 1. Profound bradycardia, heart rate dropping to 20s associated with hypotension due to the hyperkalemia and metoprolol. The metoprolol has been discontinued and the patient received atropine and hyperkalemia was treated. Currently, he is not bradycardic despite Cardizem 90 tid. 2. Troponin elevation 0.2, 0.4, 0.2, likely due to demand ischemia in this patient with severe sepsis and septic shock. EF 55% 3. Initial hypotension and shock. Likely due to sepsis. White count is improving and the patient is now off both Levophed and dopamine. 4. Hypertension. Within 24 hours, his blood pressure improved from 70 to 200s. Cannot use NNAMDI inhibitor or angiotensin-receptor blockers in view of hyperkalemia and acute renal failure either. On Cardizem and prn vasotec and clonidine 5. Atrial fib with RVR. On Cardizem 90 q 8 6. Ventilator-dependent respiratory failure, status post tracheostomy. 7. Dysphagia, status post PEG placement. 8. CVA with hemiplegia. 9. Pressure ulcers. 10. Anemia. 11. Shock liver. LELAND RN Subjective Subjective On the Vent via trach with 35% Fio2 and PEEP 5. Troponins flat and low Off Cardizem 90 tid via PEG . Atrial fib converted to SR Objective Last 24 Hour Vital Signs Date Time Temp Pulse Resp B/P (MAP) Pulse Ox O2 Delivery O2 Flow Rate FiO2 03/21/20 14:14 83 150/79 03/21/20 12:11 88 03/21/20 12:00 97.9 83 16 150/79 (102) 100 03/21/20 12:00 35 03/21/20 12:00 Mechanical Ventilator Mechanical Ventilator 03/21/20 11:45 82 16 35 03/21/20 08:00 Mechanical Ventilator Mechanical Ventilator 03/21/20 08:00 99.0 66 18 150/73 (98) 100 03/21/20 08:00 35 03/21/20 07:54 95 03/21/20 07:25 80 17 35 03/21/20 06:00 98 142/92 03/21/20 04:00 98.6 98 24 142/92 (109) 100 03/21/20 04:00 35 03/21/20 04:00 Mechanical Ventilator Mechanical Ventilator 03/21/20 03:41 100 03/21/20 02:56 83 25 35 03/21/20 00:00 Mechanical Ventilator Mechanical Ventilator 03/21/20 00:00 98.6 71 24 154/78 (103) 100 03/21/20 00:00 65 03/21/20 00:00 35 03/20/20 23:05 77 23 35 03/20/20 21:37 74 151/75 03/20/20 20:00 98.2 74 22 151/75 (100) 100 03/20/20 20:00 Mechanical Ventilator Mechanical Ventilator 03/20/20 20:00 35 03/20/20 20:00 75 03/20/20 18:45 78 21 35 03/20/20 16:00 Mechanical Ventilator Mechanical Ventilator 03/20/20 16:00 35 03/20/20 16:00 97.9 71 17 146/79 (101) 99 Intake and Output 03/20/20 03/21/20 19:00 07:00 Intake Total 910 ml 1215 ml Output Total 1200 ml 900 ml Balance -290 ml 315 ml Intake Free Water 250 ml 500 ml Tube Feeding 660 ml 715 ml Output Urine Total 1200 ml 900 ml Laboratory Tests Test 03/21/20 06:30 White Blood Count 9.4 K/UL (4.8-10.8) Red Blood Count 2.89 M/UL (4.70-6.10) L Hemoglobin 8.9 G/DL (14.2-18.0) L Hematocrit 26.9 % (42.0-52.0) L Mean Corpuscular Volume 93 FL (80-99) Mean Corpuscular Hemoglobin 30.8 PG (27.0-31.0) Mean Corpuscular Hemoglobin Concent 33.0 G/DL (32.0-36.0) Red Cell Distribution Width 17.5 % (11.6-14.8) H Platelet Count 147 K/UL (150-450) L Mean Platelet Volume 10.1 FL (6.5-10.1) Neutrophils (%) (Auto) % (45.0-75.0) Lymphocytes (%) (Auto) % (20.0-45.0) Monocytes (%) (Auto) % (1.0-10.0) Eosinophils (%) (Auto) % (0.0-3.0) Basophils (%) (Auto) % (0.0-2.0) Differential Total Cells Counted 100 Neutrophils % (Manual) 60 % (45-75) Lymphocytes % (Manual) 7 % (20-45) L Monocytes % (Manual) 12 % (1-10) H Eosinophils % (Manual) 21 % (0-3) H Basophils % (Manual) 0 % (0-2) Band Neutrophils 0 % (0-8) Platelet Estimate Decreased L Platelet Morphology Normal Hypochromasia 1+ Anisocytosis 1+ Sodium Level 145 MMOL/L (136-145) Potassium Level 4.1 MMOL/L (3.5-5.1) Chloride Level 109 MMOL/L (98-107) H Carbon Dioxide Level 34 MMOL/L (21-32) H Anion Gap 2 mmol/L (5-15) L Blood Urea Nitrogen 24 mg/dL (7-18) H Creatinine 0.7 MG/DL (0.55-1.30) Estimat Glomerular Filtration Rate > 60 mL/min (>60) Glucose Level 104 MG/DL (74-106) Calcium Level 7.8 MG/DL (8.5-10.1) L Phosphorus Level 2.2 MG/DL (2.5-4.9) L Magnesium Level 2.0 MG/DL (1.8-2.4) Total Bilirubin 1.6 MG/DL (0.2-1.0) H Direct Bilirubin 1.4 MG/DL (0.0-0.3) H Aspartate Amino Transf (AST/SGOT) 59 U/L (15-37) H Alanine Aminotransferase (ALT/SGPT) 318 U/L (12-78) H Alkaline Phosphatase 83 U/L (46-116) Total Protein 6.2 G/DL (6.4-8.2) L Albumin 1.6 G/DL (3.4-5.0) L Globulin 4.6 g/dL Albumin/Globulin Ratio 0.3 (1.0-2.7) L Objective HEAD AND NECK: No JVD. Status post tracheostomy. LUNGS: Coarse rhonchi. CARDIOVASCULAR: Regular S1 and S2 with no gallop. ABDOMEN: Status post G-tube. EXTREMITIES: 1+ pitting edema. Liang Barry MD Mar 21, 2020 15:35
[2020-03-21 16:00] VITALS: BP 159/86
--- NOTE | 2020-03-21 18:07 | Nephrology Progress Note ---
Assessment/Plan Problem List: (1) NIURKA (acute kidney injury) (2) Renal failure (ARF), acute on chronic (3) HTN (hypertension) (4) Sepsis (5) Elevated LFTs Assessment Acute renal failure secondary to urinary outlet obstruction Electrolyte abnormalities, hyperkalemia Chronic respiratory failure trach and vent dependent History of atrial fibrillation PEG Anemia Patient presented with low blood pressure and shock liver Plan March 21: Labs reviewed. Abnormal electrolytes addressed. Continue per current management. March 20: Labs reviewed. Abnormal electrolytes addressed. Continue to monitor electrolytes. March 19: Labs reviewed. Discussed with Dr. Danielle. Stable from renal standpoint of view. Continues to have trach, PEG, Johnson. Trial of discontinuation of Johnson can be done in-house or as an outpatient. March 18: Labs reviewed. Abnormal electrolytes addressed per orders. Continue per consultants. D5W IV fluid is discontinued March 17: Renal parameters improved. Abnormal electrolyte noted reviewed and addressed. Continue per current management. Discussed with RN. March 16: Renal parameters improved. Abnormal electrolytes addressed. Blood pressure controlled. Continue per current management. March 15: Hydrate and change IV to D5W. Add Norvasc for high blood pressure. Continue to monitor renal parameters and electrolytes. Can start GT feeding. Discussed with RN. March 14: Hydrate As needed hydralazine for high or high blood pressure Monitor electrolyte Treatment of underlying sepsis Per orders Subjective ROS Limited/Unobtainable: Yes Objective Objective Last 24 Hour Vital Signs Date Time Temp Pulse Resp B/P (MAP) Pulse Ox O2 Delivery O2 Flow Rate FiO2 03/21/20 16:00 35 03/21/20 16:00 Mechanical Ventilator Mechanical Ventilator 03/21/20 15:30 100 03/21/20 15:15 113 18 35 03/21/20 14:14 83 150/79 03/21/20 12:11 88 03/21/20 12:00 97.9 83 16 150/79 (102) 100 03/21/20 12:00 35 03/21/20 12:00 Mechanical Ventilator Mechanical Ventilator 03/21/20 11:45 82 16 35 03/21/20 08:00 Mechanical Ventilator Mechanical Ventilator 03/21/20 08:00 99.0 66 18 150/73 (98) 100 03/21/20 08:00 35 03/21/20 07:54 95 03/21/20 07:25 80 17 35 03/21/20 06:00 98 142/92 03/21/20 04:00 98.6 98 24 142/92 (109) 100 03/21/20 04:00 35 03/21/20 04:00 Mechanical Ventilator Mechanical Ventilator 03/21/20 03:41 100 03/21/20 02:56 83 25 35 03/21/20 00:00 Mechanical Ventilator Mechanical Ventilator 03/21/20 00:00 98.6 71 24 154/78 (103) 100 03/21/20 00:00 65 03/21/20 00:00 35 03/20/20 23:05 77 23 35 03/20/20 21:37 74 151/75 03/20/20 20:00 98.2 74 22 151/75 (100) 100 03/20/20 20:00 Mechanical Ventilator Mechanical Ventilator 03/20/20 20:00 35 03/20/20 20:00 75 03/20/20 18:45 78 21 35 Intake and Output 03/20/20 03/21/20 19:00 07:00 Intake Total 910 ml 1215 ml Output Total 1200 ml 900 ml Balance -290 ml 315 ml Intake Free Water 250 ml 500 ml Tube Feeding 660 ml 715 ml Output Urine Total 1200 ml 900 ml Current Medications Medications (Trade) Dose Ordered Sig/Natalia Route PRN Reason Start Time Stop Time Status Last Admin Dose Admin Acetaminophen (Tylenol) 650 mg Q4H PRN GT Mild Pain 03/17/20 06:15 04/16/20 06:14 03/18/20 10:15 Acetaminophen (Tylenol) 650 mg Q4H PRN GT fever 03/17/20 06:30 04/16/20 06:29 03/19/20 21:03 Bisacodyl (Dulcolax) 10 mg DAILYPRN PRN RECTAL Constipation 03/13/20 22:45 06/11/20 22:44 Chlorhexidine Gluconate (Shirley-Hex 2%) 1 applic DAILY@1999 TOPIC 03/18/20 20:00 06/16/20 19:59 03/20/20 21:37 Clonidine HCl (Catapres Tab) 0.1 mg Q2H PRN ORAL For High Blood Pressure 03/16/20 11:30 06/14/20 11:29 03/19/20 16:30 Dextrose (Dextrose 50%) 25 ml Q30M PRN IV Hypoglycemia 03/13/20 22:45 06/11/20 22:44 Dextrose (Dextrose 50%) 50 ml Q30M PRN IV Hypoglycemia 03/13/20 22:45 06/11/20 22:44 Diltiazem HCl (Cardizem Tab) 90 mg EVERY 8 HOURS GT 03/18/20 11:00 04/17/20 10:59 03/21/20 14:14 Docusate Sodium (Colace) 100 mg Q12HR ORAL 03/15/20 10:00 04/14/20 09:59 03/21/20 09:16 Enalaprilat (Vasotec) 1.25 mg Q3H PRN IV For High Blood Pressure 03/16/20 11:30 04/15/20 11:29 Heparin Sodium (Porcine) (Heparin 5000 units/ml) 5,000 units EVERY 12 HOURS SUBQ 03/14/20 09:00 04/28/20 08:59 03/21/20 09:18 Meropenem 1 gm/ Sodium Chloride 55 ml @ 110 mls/hr Q8H IVPB 03/17/20 11:00 03/25/20 10:59 03/21/20 11:17 Ondansetron HCl (Zofran) 4 mg Q6H PRN IVP Nausea & Vomiting 03/13/20 22:45 04/12/20 22:44 Pantoprazole (Protonix) 40 mg Q12HR IV 03/14/20 21:00 04/13/20 08:59 03/21/20 09:16 Laboratory Tests 03/21/20 06:30: White Blood Count 9.4, Red Blood Count 2.89L, Hemoglobin 8.9L, Hematocrit 26.9L, Mean Corpuscular Volume 93, Mean Corpuscular Hemoglobin 30.8, Mean Corpuscular Hemoglobin Concent 33.0, Red Cell Distribution Width 17.5H, Platelet Count 147L, Mean Platelet Volume 10.1, Neutrophils (%) (Auto) , Lymphocytes (%) (Auto) , Monocytes (%) (Auto) , Eosinophils (%) (Auto) , Basophils (%) (Auto) , Differential Total Cells Counted 100, Neutrophils % (Manual) 60, Lymphocytes % (Manual) 7L, Monocytes % (Manual) 12H, Eosinophils % (Manual) 21H, Basophils % (Manual) 0, Band Neutrophils 0, Platelet Estimate DecreasedL, Platelet Morphology Normal, Hypochromasia 1+, Anisocytosis 1+, Sodium Level 145, Potassium Level 4.1, Chloride Level 109H, Carbon Dioxide Level 34H, Anion Gap 2L , Blood Urea Nitrogen 24H, Creatinine 0.7, Estimat Glomerular Filtration Rate > 60, Glucose Level 104, Calcium Level 7.8L, Phosphorus Level 2.2L, Magnesium Level 2.0, Total Bilirubin 1.6H, Direct Bilirubin 1.4H, Aspartate Amino Transf (AST/SGOT) 59H, Alanine Aminotransferase (ALT/SGPT) 318H, Alkaline Phosphatase 83, Total Protein 6.2L, Albumin 1.6L, Globulin 4.6, Albumin/Globulin Ratio 0.3L Height (Feet): 6 Weight (Pounds): 185 General Appearance: no apparent distress EENT: other - On mechanical ventilation Cardiovascular: normal rate Respiratory/Chest: decreased breath sounds Abdomen: distended Tano Longoria MD Mar 21, 2020 18:07
--- NOTE | 2020-03-21 19:24 | NUR ---
NURSE HAND-OFF REPORT: Important Events on Shift: Patient Status: stable Diet: Glucerna 1.5 Pending Orders: possible d/c tomorrow if culture (femoral cath). Pending Results/Labs:n Pending notification:n Latest Vital Signs: Temperature 97.7 , Pulse 114 , B/P 159 /86 , Respiratory Rate 21 , O2 SAT 100 , Mechanical Ventilator, O2 Flow Rate 40.0 . Vital Sign Comment: wnl EKG Rhythm: a. fib Rhythm change?: N Notified?: N - Dr Jhonny RICARDO Response: Latest Wall Fall Score: 75 Fall Risk: High Risk Safety Measures: Call light Within Reach, Bed Alarm Zone 3, Side Rails Side Rails x3, Bed position Low and Locked. Fall Precautions: Yellow Socks Yellow Gown Door Sign Patient Fall Education Report given to Arnold ALCARAZ.
[2020-03-21] MEDS: Dyna-Hex 2% Top Sol 2oz TOPIC SCH (19:59)
[2020-03-21 20:00] VITALS: BP 159/100
--- NOTE | 2020-03-21 21:00 | NUR ---
NURSE NOTES: All due meds given and tolerated well. Patient stable on vent settings. No distress noted. Will continue to monitor.
[2020-03-22] VITALS: BP 160/68
--- NOTE | 2020-03-22 | NUR ---
NURSE NOTES: Patient BP noted elevated, PRN medication given and was noted effective in lowering the SBP to WNL. No distress noted. Will continue to monitor.
--- NOTE | 2020-03-22 03:00 | NUR ---
NURSE NOTES: Patient asleep. 0/10 FLACC score noted. No distress noted. Will continue to monitor.
[2020-03-22] MEDS: Meropenem 1 GM in NS 55 ML IVPB SCH ×3 (03:12→18:14)
[2020-03-22 04:00] VITALS: BP 157/77
[2020-03-22] MEDS: dilTIAZem HCl 90mg tab GT SCH ×3 (05:08→20:54)
--- NOTE | 2020-03-22 06:00 | NUR ---
NURSE NOTES: Patient asleep. No distress noted. No pain noted. Will continue to monitor.
--- NOTE | 2020-03-22 07:15 | NUR ---
NURSE HAND-OFF REPORT: Important Events on Shift:- Patient Status: Stable Diet: GT Pending Orders: Pending Results/Labs: Pending MD notification: Latest Vital Signs: Temperature 97.7 , Pulse 68 , B/P 157 /77 , Respiratory Rate 20 , O2 SAT 100 , Mechanical Ventilator, O2 Flow Rate 40.0 . Vital Sign Comment: EKG Rhythm: Sinus Rhythm Rhythm change?: Y Notified?: N - Dr Jhonny RICARDO Response: pt now on cardizem gtt Latest Wall Fall Score: 75 Fall Risk: High Risk Safety Measures: Call light Within Reach, Bed Alarm Zone 3, Side Rails Side Rails x3, Bed position Low and Locked. Fall Precautions: Yellow Socks Yellow Gown Door Sign Patient Fall Education Report given to LISSA Zimmerman.
--- NOTE | 2020-03-22 07:15 | NUR ---
NURSE NOTES: Received patient from Arnold RN. patient is obtunded. sinus rhythm on the monitor. trach to vent at prescribed settings, tolerating well. Gtube and tube feeding running at prescribed settings, tolerating well. aggarwal in place and draining well to gravity. DELBERT PICC dry and intact. bed to lowest position and locked, call light within easy reach. will continue plan of care.
[2020-03-22 08:00] VITALS: BP 153/74
[2020-03-22] MEDS: Docusate 100mg/10ml Liq ORAL SCH ×2 (08:16→20:54)
[2020-03-22] MEDS: Pantoprazole Inj IV SCH ×2 (08:17→20:54)
[2020-03-22] MEDS: Heparin 5000 units/ml inj SUBQ SCH ×2 (08:18→20:55)
--- NOTE | 2020-03-22 08:23 | Infectious Diseases Prog Note ---
Assessment/Plan 85yo M with: Afebrile Leukocytosis to 21, improved 03/19 Sp Removal of L fem CVC, possible source of fever/leukocytosis GNR bacteremia most likely 2/2 UTI Obstructive uropathy s/p drainage w/ aggarwal 03/13 BCx +P.mirabilis (S-CTX) UCx +ESBL E.coli and ESBL P.mirabilis COVID rapid Ag neg CXR: BL pna Abd US neg 03/15 Resp cx +ESBL E.coli and Serratia marcesens 03/19 BCx NTD ?Mastoiditis, regardless on course of meropenem 03/17 CTH: 1. Loss of hernandez-white differentiation in the left frontal lobe which may represent subacute or chronic infarct, especially given multifocal encephalomalacia. However, in the absence of comparison imaging, further evaluation with MRI is recommended to exclude acute infarct. 2. Large bilateral mastoid effusions; correlation for mastoiditis is recommended. NIURKA, improving Elevated LFTs - AST 1858 / ALT 3987 >> improving Acute hep panel neg Acute on chronic resp failure S/p trach/PEG, vent dependent Prior CVA Hemiplegia Dysphagia Gastroparesis Pressure ulcers Nonverbal SNF resident Plan: Cont meropenem #6/7 to cover for ESBL UTI and bacteremia. Plan for 7 days of meropenem then stop and monitor off abx. On discharge can transition to ertapenem 1g IV daily to complete course Trend WBC, improving 03/17 SP Zosyn #3 03/16 SP vanco #2 empiric Monitor CBC/CMP Monitor resp status Monitor temp curve, hemodynamics D/w RN and primary Dr. Danielle Thank you for this consult. [facility] will continue to follow. Subjective Allergies: Coded Allergies: No Known Allergies (Unverified , 02/11/20) AF WBC improving to 9.4 yesterday NAD on vent 35% PEEP 5 Objective Last 24 Hour Vital Signs Date Time Temp Pulse Resp B/P (MAP) Pulse Ox O2 Delivery O2 Flow Rate FiO2 03/22/20 05:08 68 157/77 03/22/20 04:00 68 03/22/20 04:00 97.7 72 20 157/77 (103) 100 03/22/20 04:00 Mechanical Ventilator Mechanical Ventilator 03/22/20 04:00 35 03/22/20 03:04 71 23 35 03/22/20 00:00 35 03/22/20 00:00 60 03/22/20 00:00 Mechanical Ventilator Mechanical Ventilator 03/22/20 00:00 98.1 56 20 160/68 (98) 100 03/21/20 23:14 172/89 03/21/20 22:58 74 16 35 03/21/20 21:20 91 159/100 03/21/20 20:00 35 03/21/20 20:00 98.1 115 19 159/100 (119) 100 03/21/20 20:00 100 03/21/20 20:00 Mechanical Ventilator Mechanical Ventilator 03/21/20 19:25 91 17 35 03/21/20 16:00 35 03/21/20 16:00 97.7 114 21 159/86 (110) 100 03/21/20 16:00 Mechanical Ventilator Mechanical Ventilator 03/21/20 15:30 100 03/21/20 15:15 113 18 35 03/21/20 14:14 83 150/79 03/21/20 12:11 88 03/21/20 12:00 97.9 83 16 150/79 (102) 100 03/21/20 12:00 35 03/21/20 12:00 Mechanical Ventilator Mechanical Ventilator 03/21/20 11:45 82 16 35 Height (Feet): 6 Weight (Pounds): 185 Gen: NAD in bed HEENT: NCAT +trach CV: RRR Pulm: CTAB Abd: Soft, NTND Ext: No c/c/e Neuro: Sleeping Microbiology Date/Time Source Procedure Growth Status 03/19/20 15:55 Blood Blood Culture - Preliminary NO GROWTH AFTER 48 HOURS Resulted Current Medications Medications (Trade) Dose Ordered Sig/Natalia Route PRN Reason Start Time Stop Time Status Last Admin Dose Admin Acetaminophen (Tylenol) 650 mg Q4H PRN GT Mild Pain 03/17/20 06:15 04/16/20 06:14 03/18/20 10:15 Acetaminophen (Tylenol) 650 mg Q4H PRN GT fever 03/17/20 06:30 04/16/20 06:29 03/19/20 21:03 Bisacodyl (Dulcolax) 10 mg DAILYPRN PRN RECTAL Constipation 03/13/20 22:45 06/11/20 22:44 Chlorhexidine Gluconate (Shirley-Hex 2%) 1 applic DAILY@1999 TOPIC 03/18/20 20:00 06/16/20 19:59 03/21/20 19:59 Clonidine HCl (Catapres Tab) 0.1 mg Q2H PRN ORAL For High Blood Pressure 03/16/20 11:30 06/14/20 11:29 03/21/20 23:14 Dextrose (Dextrose 50%) 25 ml Q30M PRN IV Hypoglycemia 03/13/20 22:45 06/11/20 22:44 Dextrose (Dextrose 50%) 50 ml Q30M PRN IV Hypoglycemia 03/13/20 22:45 06/11/20 22:44 Diltiazem HCl (Cardizem Tab) 90 mg EVERY 8 HOURS GT 03/18/20 11:00 04/17/20 10:59 03/22/20 05:08 Docusate Sodium (Colace) 100 mg Q12HR ORAL 03/15/20 10:00 04/14/20 09:59 03/22/20 08:16 Enalaprilat (Vasotec) 1.25 mg Q3H PRN IV For High Blood Pressure 03/16/20 11:30 04/15/20 11:29 Heparin Sodium (Porcine) (Heparin 5000 units/ml) 5,000 units EVERY 12 HOURS SUBQ 03/14/20 09:00 04/28/20 08:59 03/22/20 08:18 Meropenem 1 gm/ Sodium Chloride 55 ml @ 110 mls/hr Q8H IVPB 03/17/20 11:00 03/25/20 10:59 03/22/20 03:12 Ondansetron HCl (Zofran) 4 mg Q6H PRN IVP Nausea & Vomiting 03/13/20 22:45 04/12/20 22:44 Pantoprazole (Protonix) 40 mg Q12HR IV 03/14/20 21:00 04/13/20 08:59 03/22/20 08:17 Carmen Hines M.D. Mar 22, 2020 08:23
[2020-03-22 12:00] VITALS: BP 161/80
--- NOTE | 2020-03-22 12:04 | General Progress Note ---
Subjective Allergies: Coded Allergies: No Known Allergies (Unverified , 02/11/20) Subjective above noted confused Objective Last 24 Hour Vital Signs Date Time Temp Pulse Resp B/P (MAP) Pulse Ox O2 Delivery O2 Flow Rate FiO2 03/22/20 08:00 97.7 64 20 153/74 (100) 100 03/22/20 08:00 54 03/22/20 08:00 Mechanical Ventilator Mechanical Ventilator 03/22/20 08:00 35 03/22/20 07:00 57 14 35 03/22/20 05:08 68 157/77 03/22/20 04:00 68 03/22/20 04:00 97.7 72 20 157/77 (103) 100 03/22/20 04:00 Mechanical Ventilator Mechanical Ventilator 03/22/20 04:00 35 03/22/20 03:04 71 23 35 03/22/20 00:00 35 03/22/20 00:00 60 03/22/20 00:00 Mechanical Ventilator Mechanical Ventilator 03/22/20 00:00 98.1 56 20 160/68 (98) 100 03/21/20 23:14 172/89 03/21/20 22:58 74 16 35 03/21/20 21:20 91 159/100 03/21/20 20:00 35 03/21/20 20:00 98.1 115 19 159/100 (119) 100 03/21/20 20:00 100 03/21/20 20:00 Mechanical Ventilator Mechanical Ventilator 03/21/20 19:25 91 17 35 03/21/20 16:00 35 03/21/20 16:00 97.7 114 21 159/86 (110) 100 03/21/20 16:00 Mechanical Ventilator Mechanical Ventilator 03/21/20 15:30 100 03/21/20 15:15 113 18 35 03/21/20 14:14 83 150/79 03/21/20 12:11 88 Intake and Output 03/21/20 03/22/20 19:00 07:00 Intake Total 960 ml 1005 ml Output Total 1250 ml 600 ml Balance -290 ml 405 ml Intake Free Water 300 ml 400 ml Tube Feeding 660 ml 605 ml Output Urine Total 1250 ml 600 ml # Bowel Movements 1 Height (Feet): 6 Weight (Pounds): 185 Objective Elderly man NCAT (+) trach coarse BS RR abd soft ND NT, (+) GT no edema Assessment/Plan Status: unchanged Assessment/Plan: Assessment - Acute severe transaminitis with rapid fall, likely ischemic hepatitis - Resp failure, s/p trach - dysphagia, s/p PEG - CVA, OBS - atrial fib Recommendations - IVF - follow LFT - supportive care - follow hepatitis markers - negative - TF - Elevate HOB - will consider CT scan Ajit Chappell MD Mar 22, 2020 12:04
[2020-03-22] MEDS ORDERED: INVANZ1 G1 IM (12:05)
--- NOTE | 2020-03-22 12:13 | Discharge Instructions ---
Discharge Instructions Discharge Instructions Diet: tube feeding Resume Normal Activity?: Yes Activity: as tolerated Follow Up Orders complete 1 more day of IV Ertapenem 1 gram Return to Work/School on: Mar 22, 2020 For Congestive Heart Failure Reminder Report to your physician any weight gain of 5 pounds or more in one week. Va Danielle MD Mar 22, 2020 12:13
--- NOTE | 2020-03-22 12:21 | Discharge Summary ---
Discharge Summary Hospital Course Date of Admission Mar 14, 2020 at 17:39 Date of Discharge 03/22/2020 Admitting Diagnosis SYMPTOMATIC BRADYCARDIA NEEL Avery is a 85 year old male who was admitted on Mar 14, 2020 at 17:39 for Symptomatic Bradycardia Hospital Course 85 y/o M with prior CVA, s/p PRG/TRACH admitted from SNF with severe bradycardia. # Bradycardia - Junctional rhythym on admission, resolved. # NSTEMI - Serial troponin with decreasing titter noted. TTE Initial EKG showed junctional bradycardia and prolonged QRS/QT interval concerning for hyperkalemia. Patient's HR in the ER was 40 worsened into heart rate in the 20s with subsequent hypotension 03/14. Patient was treated with calcium, magnesium, bicarb at bedside due to concern for hyperkalemia. Atropine and Epi given in the ER. Dopamine gtt titration started in the ED. Cardiology consultation requested with Dr. Barry and telemetry showed Atrial Fibrillation with RVR 03/15/20. Diltiazem gtt started and now adjusted to Cadizem 60 mg q 6 hr, GT and now telemetry shows stable heart rate. Continue CCB therapy per discussion with Dr. Barry from cardiology. #Sepsis consistent with ventilator associated pneumonia. Tracheostomy is in place Broad sp antibiotic started and WBC improving and less than 20K now GNR in all blood culture bottles noted ID consultation requested with Dr Hines. Sp Removal of L fem CVC, possible source of fever/leukocytosis GNR bacteremia most likely 2/2 UTI Obstructive uropathy s/p drainage w/ aggarwal 03/13 BCx +P.mirabilis (S-CTX) UCx +ESBL E.coli and ESBL P.mirabilis COVID rapid Ag neg CXR: BL pna Abd US neg 03/15 Resp cx +ESBL E.coli and Serratia marcesens 03/19 BCx NTD ?Mastoiditis, regardless on course of meropenem 03/17 CTH: 1. Loss of hernandez-white differentiation in the left frontal lobe which may represent subacute or chronic infarct, especially given multifocal encephalomalacia. However, in the absence of comparison imaging, further evaluation with MRI is recommended to exclude acute infarct. 2. Large bilateral mastoid effusions; correlation for mastoiditis is recommended. # Hyperkalemia on admission Treated medically. Renal consulation requested with Dr. Laguerre # Hypomagnesemia Replete # Hypophosphatemia Replet # History of L renal mass by US 02/17/20 # NIURKA on CKD Creatinine decreasing and possibly due to severe urinary retention which was relieved in the ED after aggarwal insertion. Monitor I/O's Renal consultation appreciated. Patient has sacral ulcers and incontinence of urine will worsen the wounds. Will keep Aggarwal for now. He does not have proper anatomy for condom cath and will be incontinent. #Elevated LFT's and prior history of cirrhosis # Shock liver due to hypotension Trend LFT's GI consultation completed with Dr. Del Castillo and no intervention or further workup recommended at this time. 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 I discussed with family and they reported that the patient is full care trach/peg since original CVA, he is NOT ambulatory and non verbal which is his current state now. LINES PICC in place and will be continued to complete antibiotic. FULL CODE DISPO: [place] [facility] today. Discharge Medications New Medications: Ertapenem (Invanz) 1 Gm Vial 1 GM IM DAILY for 1 Day, VIAL 0 Refills Continued Medications: Acetaminophen 160MG/5ML* (Acetaminophen*) 160 Mg/5 Ml Elixir 20.3 ML GT Q6H PRN for MILD PAIN (1-3) AND TEMP>100.5, ML Amino Acids/Protein Hydrolys (Pro-Stat Liquid) 30 Ml Liquid.pkt 30 ML GT TWICE A DAY for SUPPLEMENT, ML Ascorbic Acid* (Vitamin C*) 250 Mg Tablet 250 MG GT TWICE A DAY for SUPPLEMENT, TAB Bisacodyl* (Dulcolax*) 5 Mg Tablet. 5 MG GT DAILY for BOWEL MOVEMENT, TAB HOLD FOR LOOSE STOOL [Calazime Skin Paste] () Unknown Dose TP DAILY for SKIN PROTECTANT APPLY TO L TROCHANTER AND R MEDIAL MALLEOLUS Levetiracetam (Keppra) 100 Mg/1 Ml Solution 15 ML GT TWICE A DAY for EPILEPSY Losartan Potassium* (Losartan Potassium*) 50 Mg Tablet 50 MG GT DAILY for Hypertension, TAB Metoclopramide Hcl* (Reglan*) 10 Mg Tablet 10 MG GT EVERY 6 HOURS for NAUSEA/VOMITING, TAB Metoprolol Tartrate* (Metoprolol Tartrate*) 50 Mg Tablet 50 MG GT BID for Primary HTN, TAB 0 Refills Multivitamins* (Multivitamins*) 1 Each Tablet 1 TAB GT DAILY for SUPPLEMENT, TAB 0 Refills Petrolatum,White/Lanolin (Vitamin A & D Ointment) 113 Gm Oint...g. 113 GM TP DAILY for SKIN MAINTENANCE, GM APPLY TO BLE TOPICALLY Sennosides (Senokot) 8.6 Mg Tablet 8.6 MG GT BID for BM, TAB HOLD FOR LOOSE BM Discharge Condition Upon Discharge: stable Discharge Vital Signs Last Vital Signs Date Time Temp Pulse Resp B/P (MAP) Pulse Ox O2 Delivery O2 Flow Rate FiO2 03/22/20 12:00 35 03/22/20 08:00 97.7 64 20 153/74 (100) 100 03/22/20 08:00 Mechanical Ventilator Mechanical Ventilator 03/15/20 03:51 40.0 Discharge Disposition Patient was discharged to [facility] Discharge Diagnoses: (1) Bradycardia (2) Renal failure (3) Shock liver (4) Sepsis (5) NSTEMI (non-ST elevated myocardial infarction) (6) Tracheostomy complication (7) Elevated LFTs Discharge Instructions Discharge Instructions Activity: as tolerated May Return to Work/School On: Mar 22, 2020 aV Danielle MD Mar 22, 2020 12:21
--- NOTE | 2020-03-22 12:40 | Cardiac Electrophysiology PN ---
Assessment/Plan Assessment/Plan 1. Profound bradycardia, heart rate dropping to 20s associated with hypotension due to the hyperkalemia and metoprolol. The metoprolol has been discontinued and the patient received atropine and hyperkalemia was treated. Currently, he is not bradycardic despite Cardizem 90 tid. 2. Troponin elevation 0.2, 0.4, 0.2, likely due to demand ischemia in this patient with severe sepsis and septic shock. EF 55% 3. Initial hypotension and shock. Likely due to sepsis. White count is improving and the patient is now off both Levophed and dopamine. 4. Hypertension. Within 24 hours, his blood pressure improved from 70 to 200s. Cannot use NNAMDI inhibitor or angiotensin-receptor blockers in view of hyperkalemia and acute renal failure either. On Cardizem and prn vasotec and clonidine 5. Atrial fib with RVR. On Cardizem 90 q 8 6. Ventilator-dependent respiratory failure, status post tracheostomy. 7. Dysphagia, status post PEG placement. 8. CVA with hemiplegia. 9. Pressure ulcers. 10. Anemia. 11. Shock liver. DW Dr Danielle and RN Subjective Subjective On the Vent via trach with 35% Fio2 and PEEP 5. Troponins flat and low Off Cardizem 90 tid via PEG. No rizwana overnight. Atrial fib converted to SR Objective Last 24 Hour Vital Signs Date Time Temp Pulse Resp B/P (MAP) Pulse Ox O2 Delivery O2 Flow Rate FiO2 03/22/20 12:00 35 03/22/20 12:00 Mechanical Ventilator Mechanical Ventilator 03/22/20 08:00 97.7 64 20 153/74 (100) 100 03/22/20 08:00 54 03/22/20 08:00 Mechanical Ventilator Mechanical Ventilator 03/22/20 08:00 35 03/22/20 07:00 57 14 35 03/22/20 05:08 68 157/77 03/22/20 04:00 68 03/22/20 04:00 97.7 72 20 157/77 (103) 100 03/22/20 04:00 Mechanical Ventilator Mechanical Ventilator 03/22/20 04:00 35 03/22/20 03:04 71 23 35 03/22/20 00:00 35 03/22/20 00:00 60 03/22/20 00:00 Mechanical Ventilator Mechanical Ventilator 03/22/20 00:00 98.1 56 20 160/68 (98) 100 03/21/20 23:14 172/89 03/21/20 22:58 74 16 35 03/21/20 21:20 91 159/100 03/21/20 20:00 35 03/21/20 20:00 98.1 115 19 159/100 (119) 100 03/21/20 20:00 100 03/21/20 20:00 Mechanical Ventilator Mechanical Ventilator 03/21/20 19:25 91 17 35 03/21/20 16:00 35 03/21/20 16:00 97.7 114 21 159/86 (110) 100 03/21/20 16:00 Mechanical Ventilator Mechanical Ventilator 03/21/20 15:30 100 03/21/20 15:15 113 18 35 03/21/20 14:14 83 150/79 Intake and Output 03/21/20 03/22/20 19:00 07:00 Intake Total 960 ml 1005 ml Output Total 1250 ml 600 ml Balance -290 ml 405 ml Intake Free Water 300 ml 400 ml Tube Feeding 660 ml 605 ml Output Urine Total 1250 ml 600 ml # Bowel Movements 1 Microbiology Date/Time Source Procedure Growth Status 03/19/20 15:55 Blood Blood Culture - Preliminary NO GROWTH AFTER 48 HOURS Resulted Objective HEAD AND NECK: No JVD. Status post tracheostomy. LUNGS: Coarse rhonchi. CARDIOVASCULAR: Regular S1 and S2 with no gallop. ABDOMEN: Status post G-tube. EXTREMITIES: 1+ pitting edema. Liang Barry MD Mar 22, 2020 12:40
--- NOTE | 2020-03-22 14:56 | NUR ---
*-*DISCHARGE PLANNING*-* PATIENT HAS BEEN REFERRAL TO: [facility] P: [phone] S/W [facility], CANNOT ACCEPT THIS PATIENTS INSURANCE.
--- NOTE | 2020-03-22 15:24 | Pulmonology Progress Note ---
Subjective ROS Limited/Unobtainable: Yes Interval Events: None new reported Constitutional: Reports: no symptoms HEENT: Repors: no symptoms Respiratory: Reports: no symptoms Cardiovascular: Reports: no symptoms Gastrointestinal/Abdominal: Reports: no symptoms Genitourinary: Reports: no symptoms Allergies: Coded Allergies: No Known Allergies (Unverified , 02/11/20) All Systems: reviewed and negative except above Objective Last 24 Hour Vital Signs Date Time Temp Pulse Resp B/P (MAP) Pulse Ox O2 Delivery O2 Flow Rate FiO2 03/22/20 12:00 35 03/22/20 12:00 Mechanical Ventilator Mechanical Ventilator 03/22/20 08:00 97.7 64 20 153/74 (100) 100 03/22/20 08:00 54 03/22/20 08:00 Mechanical Ventilator Mechanical Ventilator 03/22/20 08:00 35 03/22/20 07:00 57 14 35 03/22/20 05:08 68 157/77 03/22/20 04:00 68 03/22/20 04:00 97.7 72 20 157/77 (103) 100 03/22/20 04:00 Mechanical Ventilator Mechanical Ventilator 03/22/20 04:00 35 03/22/20 03:04 71 23 35 03/22/20 00:00 35 03/22/20 00:00 60 03/22/20 00:00 Mechanical Ventilator Mechanical Ventilator 03/22/20 00:00 98.1 56 20 160/68 (98) 100 03/21/20 23:14 172/89 03/21/20 22:58 74 16 35 03/21/20 21:20 91 159/100 03/21/20 20:00 35 03/21/20 20:00 98.1 115 19 159/100 (119) 100 03/21/20 20:00 100 03/21/20 20:00 Mechanical Ventilator Mechanical Ventilator 03/21/20 19:25 91 17 35 03/21/20 16:00 35 03/21/20 16:00 97.7 114 21 159/86 (110) 100 03/21/20 16:00 Mechanical Ventilator Mechanical Ventilator 03/21/20 15:30 100 Intake and Output 03/21/20 03/22/20 19:00 07:00 Intake Total 960 ml 1005 ml Output Total 1250 ml 600 ml Balance -290 ml 405 ml Intake Free Water 300 ml 400 ml Tube Feeding 660 ml 605 ml Output Urine Total 1250 ml 600 ml # Bowel Movements 1 Objective 03/22/2020 s/p trach 03/19/2020 s/p trach; current vent setting AC 14, VT 500, PEEP 5, FiO2 35% General Appearance: no acute distress HEENT: normocephalic, mucous membranes moist, status post trach Respiratory: chest wall non-tender, other - coarse lung sounds Cardiovascular: normal peripheral pulses, normal rate Abdomen: normal bowel sounds, other - s/p G tube Genitourinary: other - Johnson Extremities: other - 1+ pitting edema Microbiology Date/Time Source Procedure Growth Status 03/19/20 15:55 Blood Blood Culture - Preliminary NO GROWTH AFTER 48 HOURS Resulted Current Medications Medications (Trade) Dose Ordered Sig/Natalia Route PRN Reason Start Time Stop Time Status Last Admin Dose Admin Acetaminophen (Tylenol) 650 mg Q4H PRN GT Mild Pain 03/17/20 06:15 04/16/20 06:14 03/18/20 10:15 Acetaminophen (Tylenol) 650 mg Q4H PRN GT fever 03/17/20 06:30 04/16/20 06:29 03/19/20 21:03 Bisacodyl (Dulcolax) 10 mg DAILYPRN PRN RECTAL Constipation 03/13/20 22:45 06/11/20 22:44 Chlorhexidine Gluconate (Shirley-Hex 2%) 1 applic DAILY@1999 TOPIC 03/18/20 20:00 06/16/20 19:59 03/21/20 19:59 Clonidine HCl (Catapres Tab) 0.1 mg Q2H PRN ORAL For High Blood Pressure 03/16/20 11:30 06/14/20 11:29 03/21/20 23:14 Dextrose (Dextrose 50%) 25 ml Q30M PRN IV Hypoglycemia 03/13/20 22:45 06/11/20 22:44 Dextrose (Dextrose 50%) 50 ml Q30M PRN IV Hypoglycemia 03/13/20 22:45 06/11/20 22:44 Diltiazem HCl (Cardizem Tab) 90 mg EVERY 8 HOURS GT 03/18/20 11:00 04/17/20 10:59 03/22/20 05:08 Docusate Sodium (Colace) 100 mg Q12HR ORAL 03/15/20 10:00 04/14/20 09:59 03/22/20 08:16 Enalaprilat (Vasotec) 1.25 mg Q3H PRN IV For High Blood Pressure 03/16/20 11:30 04/15/20 11:29 Heparin Sodium (Porcine) (Heparin 5000 units/ml) 5,000 units EVERY 12 HOURS SUBQ 03/14/20 09:00 04/28/20 08:59 03/22/20 08:18 Meropenem 1 gm/ Sodium Chloride 55 ml @ 110 mls/hr Q8H IVPB 03/17/20 11:00 03/25/20 10:59 03/22/20 10:18 Ondansetron HCl (Zofran) 4 mg Q6H PRN IVP Nausea & Vomiting 03/13/20 22:45 04/12/20 22:44 Pantoprazole (Protonix) 40 mg Q12HR IV 03/14/20 21:00 04/13/20 08:59 03/22/20 08:17 Assessment/Plan Assessment/Plan IMPRESSION: 1.Bilateral pulmonary infiltrates. 2. Pneumonia, healthcare associated. 3. Bacteremia with gram-negative rods. 4. UTI with gram-negative rods. 5. Negative COVID-19 rapid gene assay. 6. Chronic respiratory failure. 7. Seizure disorder. 8. Liver cirrhosis. 9. Paroxysmal atrial fibrillation. DISCUSSION: Agree with current medications and care. continue assist-control mechanical ventilation. ABG is adequate. Abx per ID/Dr Danielle Decrease FiO2 as tolerated. Discussed with Dr. Danielle. Seen in SDU dc planning The care for this patient was discussed with my supervising physician Time spent for this case was approximately 31 minutes The patient was seen and examined at bedside and all new and available data was reviewed in the patients chart. I agree with the above findings, impression, and plan. (Patient was seen earlier today. Signature timestamp does not reflect patient encounter time) Corona Camejo MD Mar 22, 2020 15:24 Rylan Otero MD Mar 22, 2020 17:00
[2020-03-22 16:00] VITALS: BP 77/74
--- NOTE | 2020-03-22 16:06 | Surgery Progress Note ---
Surgery Progress Note Subjective Symptoms: improved Additional Comments d/c planning stable cont diet cont dressings Objective Last 24 Hour Vital Signs Date Time Temp Pulse Resp B/P (MAP) Pulse Ox O2 Delivery O2 Flow Rate FiO2 03/22/20 16:00 97.7 66 15 77/74 (75) 100 03/22/20 15:45 66 158/77 03/22/20 12:00 35 03/22/20 12:00 Mechanical Ventilator Mechanical Ventilator 03/22/20 08:00 97.7 64 20 153/74 (100) 100 03/22/20 08:00 54 03/22/20 08:00 Mechanical Ventilator Mechanical Ventilator 03/22/20 08:00 35 03/22/20 07:00 57 14 35 03/22/20 05:08 68 157/77 03/22/20 04:00 68 03/22/20 04:00 97.7 72 20 157/77 (103) 100 03/22/20 04:00 Mechanical Ventilator Mechanical Ventilator 03/22/20 04:00 35 03/22/20 03:04 71 23 35 03/22/20 00:00 35 03/22/20 00:00 60 03/22/20 00:00 Mechanical Ventilator Mechanical Ventilator 03/22/20 00:00 98.1 56 20 160/68 (98) 100 03/21/20 23:14 172/89 03/21/20 22:58 74 16 35 03/21/20 21:20 91 159/100 03/21/20 20:00 35 03/21/20 20:00 98.1 115 19 159/100 (119) 100 03/21/20 20:00 100 03/21/20 20:00 Mechanical Ventilator Mechanical Ventilator 03/21/20 19:25 91 17 35 I&O Intake and Output 03/21/20 03/22/20 19:00 07:00 Intake Total 960 ml 1005 ml Output Total 1250 ml 600 ml Balance -290 ml 405 ml Intake Free Water 300 ml 400 ml Tube Feeding 660 ml 605 ml Output Urine Total 1250 ml 600 ml # Bowel Movements 1 Dressing: saturated Cardiovascular: RSR Respiratory: decreased breath sounds Abdomen: non-tender, present bowel sounds Extremities: no edema, no tenderness Plan Problems: (1) Lactic acidosis (2) Bradycardia (3) Renal failure (4) Shock liver (5) Chronic respiratory failure (6) Hyperkalemia (7) Anemia (8) Electrolyte imbalance (9) Sepsis Assessment & Plan: leukocytosis anemia shock liver elevated lft's decubitus ulcer respiratory insufficiency decubitus ulcers cont abx local wound care diet as tolerated tf turn q2h wean support s tolerated Pt presented on admission with multiple Skin breakdown.Scattered Senile purpuras both upper extremities. Category 3 Skin Tear R antecubital/R lateral elbow with 100% Flap loss. Base of wound is hallie with scattered Biofilm.. Edges are macerated with surrounding purpura. MASD upper L back. Affected area is reg pink with scattered satellite lesions that mostly dry with Few lesions noted to have small amt sanguineous exudate. Sacral DTPI (L)5.5cm x (W)6.5cm. Base of Pressure Injury is indurated with , Maroon with purpuric area at sacrococcygeal area. Scattered dry plaques noted to L Buttocks. Scrotum and medial/upper aspects of both thighs are erythematous. R Heel is boggy with non-Blanchable erythema. L Heel is boggy with non-blanchable erythema. DTPI Lateral R Malleolus (L)1.5cm x (W)1cm. Non-Blanchable erythema R Hallux. Distal /lateral L foot/L 5th metatarsal is boggy with non-blanchable erythema. Tx.Plan: Cleanse Skin Tear R arm with Saline. Cover with Versatel One Contact layer drsg. Apply Silvasorb gel. Cover with Optifoam drsg. Change every 7 days and prn. Apply Triad Paste to Rash L upper back daily and prn. Leave open to air. Apply Moisture Barrier Paste to Sacrum. Cover with Optifoam drsg. Change every 3 days and prn. Apply Moisture Barrier Paste to scrotum and Medial/Posterior Aspects fo both Upper thighs with each incontinence care. Reposition at least every 2hours or as tolerated. Off-load heels with pillow. APM/EULALIA Mattress overlay. (10) Shock (11) NSTEMI (non-ST elevated myocardial infarction) (12) Aspiration pneumonia (13) Tracheostomy complication (14) HTN (hypertension) (15) Tracheostomy malfunction (16) NIURKA (acute kidney injury) (17) Renal failure (ARF), acute on chronic (18) Elevated LFTs Yousuf Samayoa Mar 22, 2020 16:06
--- NOTE | 2020-03-22 17:01 | Nephrology Progress Note ---
Assessment/Plan Problem List: (1) NIURKA (acute kidney injury) (2) Renal failure (ARF), acute on chronic (3) HTN (hypertension) (4) Sepsis (5) Elevated LFTs Assessment Acute renal failure secondary to urinary outlet obstruction Electrolyte abnormalities, hyperkalemia Chronic respiratory failure trach and vent dependent History of atrial fibrillation PEG Anemia Patient presented with low blood pressure and shock liver Plan March 22: No labs drawn today. Will order labs tomorrow. Continue per current management. Continue per cardiology advice with regard to the heart rate and blood pressure March 21: Labs reviewed. Abnormal electrolytes addressed. Continue per current management. March 20: Labs reviewed. Abnormal electrolytes addressed. Continue to monitor electrolytes. March 19: Labs reviewed. Discussed with Dr. Danielle. Stable from renal standpoint of view. Continues to have trach, PEG, Johnson. Trial of discontinua tion of Johnson can be done in-house or as an outpatient. March 18: Labs reviewed. Abnormal electrolytes addressed per orders. Continue per consultants. D5W IV fluid is discontinued March 17: Renal parameters improved. Abnormal electrolyte noted reviewed and addressed. Continue per current management. Discussed with RN. March 16: Renal parameters improved. Abnormal electrolytes addressed. Blood pressure controlled. Continue per current management. March 15: Hydrate and change IV to D5W. Add Norvasc for high blood pressure. Continue to monitor renal parameters and electrolytes. Can start GT feeding. Discussed with RN. March 14: Hydrate As needed hydralazine for high or high blood pressure Monitor electrolyte Treatment of underlying sepsis Per orders Subjective ROS Limited/Unobtainable: Yes Objective Objective Last 24 Hour Vital Signs Date Time Temp Pulse Resp B/P (MAP) Pulse Ox O2 Delivery O2 Flow Rate FiO2 03/22/20 16:00 Mechanical Ventilator Mechanical Ventilator 03/22/20 16:00 68 03/22/20 16:00 35 03/22/20 16:00 97.7 66 15 77/74 (75) 100 03/22/20 15:45 66 158/77 03/22/20 12:00 35 03/22/20 12:00 62 03/22/20 12:00 Mechanical Ventilator Mechanical Ventilator 03/22/20 12:00 97.7 68 17 161/80 (107) 100 03/22/20 08:00 97.7 64 20 153/74 (100) 100 03/22/20 08:00 54 03/22/20 08:00 Mechanical Ventilator Mechanical Ventilator 03/22/20 08:00 35 03/22/20 07:00 57 14 35 03/22/20 05:08 68 157/77 03/22/20 04:00 68 03/22/20 04:00 97.7 72 20 157/77 (103) 100 03/22/20 04:00 Mechanical Ventilator Mechanical Ventilator 03/22/20 04:00 35 03/22/20 03:04 71 23 35 03/22/20 00:00 35 03/22/20 00:00 60 03/22/20 00:00 Mechanical Ventilator Mechanical Ventilator 03/22/20 00:00 98.1 56 20 160/68 (98) 100 03/21/20 23:14 172/89 03/21/20 22:58 74 16 35 03/21/20 21:20 91 159/100 03/21/20 20:00 35 03/21/20 20:00 98.1 115 19 159/100 (119) 100 03/21/20 20:00 100 03/21/20 20:00 Mechanical Ventilator Mechanical Ventilator 03/21/20 19:25 91 17 35 Intake and Output 03/21/20 03/22/20 19:00 07:00 Intake Total 960 ml 1005 ml Output Total 1250 ml 600 ml Balance -290 ml 405 ml Intake Free Water 300 ml 400 ml Tube Feeding 660 ml 605 ml Output Urine Total 1250 ml 600 ml # Bowel Movements 1 No labs drawn today Height (Feet): 6 Weight (Pounds): 185 General Appearance: no apparent distress EENT: other - On mechanical ventilation Cardiovascular: normal rate Respiratory/Chest: decreased breath sounds Abdomen: distended Tano Longoria MD Mar 22, 2020 17:01
--- NOTE | 2020-03-22 19:10 | NUR ---
NURSE HAND-OFF REPORT: Important Events on Shift: discharge order Patient Status: FULL CODE Diet: glucerna 1.5 Pending Orders: [] Pending Results/Labs:[] Pending MD notification:[] Latest Vital Signs: Temperature 97.7 , Pulse 68 , B/P 77 /74 , Respiratory Rate 15 , O2 SAT 100 , Mechanical Ventilator, O2 Flow Rate 40.0 . Vital Sign Comment: stable EKG Rhythm: Sinus Rhythm Rhythm change?: N MD Notified?: N - Dr Jhonny RICARDO Response: pt now on cardizem gtt Latest Wall Fall Score: 75 Fall Risk: High Risk Safety Measures: Call light Within Reach, Bed Alarm Zone 3, Side Rails Side Rails x3, Bed position Low and Locked. Fall Precautions: Yellow Socks Yellow Gown Door Sign Patient Fall Education Report given to LISSA Barrett.
--- NOTE | 2020-03-22 19:10 | NUR ---
NURSE NOTES: Received patient from LISSA Zimmerman under the care of Dr. Danielle for the admitting dx. of symptomatic bradycardia. Noted NKA and full code status. Patient on contact isolation. Fall, seizure, and aspiration precautions observed and maintained at all times. Patient is obtunded and responsive to light pain stimuli. Tolerating vent settings well. No acute distress noted. 0/10 FLACC score noted at this time. Will continue to monitor.
[2020-03-22 20:00] VITALS: BP 160/79
[2020-03-22] MEDS: Dyna-Hex 2% Top Sol 2oz TOPIC SCH (20:54)
--- NOTE | 2020-03-22 21:00 | NUR ---
NURSE NOTES: All due meds given and tolerated well. Patient stable on vent settings. No distress noted. Will continue to monitor.
[2020-03-23] VITALS: BP 154/67
--- NOTE | 2020-03-23 01:00 | NUR ---
NURSE NOTES: Patient asleep, resting comfortably. No acute distress noted. Tolerating vent settings well. Will continue to monitor.
[2020-03-23] MEDS: Meropenem 1 GM in NS 55 ML IVPB SCH ×4 (03:12→17:42)
[2020-03-23 04:00] VITALS: BP 167/73
[2020-03-23 04:55] LABS: HEMATOCRIT 27.3 % (42.0-52.0); HEMOGLOBIN 8.7 G/DL (14.2-18.0); MEAN CORPUSCULAR VOLUME 95 FL (80-99); PLATELET COUNT 188 K/UL (150-450); RED BLOOD COUNT 2.87 M/UL (4.70-6.10); RED CELL DISTRIBUTION WIDTH 17.1 % (11.6-14.8); WHITE BLOOD COUNT 8.2 K/UL (4.8-10.8)
[2020-03-23 05:52] LABS: ALANINE AMINOTRANSFERASE 192 U/L (12-78); ALBUMIN 1.6 G/DL (3.4-5.0); ALBUMIN/GLOBULIN RATIO 0.4 (1.0-2.7); ALKALINE PHOSPHATASE 76 U/L (46-116); ANION GAP 2 mmol/L (5-15); ASPARTATE AMINO TRANSFERASE 39 U/L (15-37); BILIRUBIN,TOTAL 1.3 MG/DL (0.2-1.0); BLOOD UREA NITROGEN 26 mg/dL (7-18); CALCIUM 8.1 MG/DL (8.5-10.1); CARBON DIOXIDE 33 MMOL/L (21-32); CHLORIDE 111 MMOL/L (98-107); CREATININE 0.6 MG/DL (0.55-1.30); PHOSPHORUS 2.2 MG/DL (2.5-4.9); POTASSIUM 4.1 MMOL/L (3.5-5.1); SODIUM 146 MMOL/L (136-145)
--- NOTE | 2020-03-23 06:00 | NUR ---
NURSE NOTES: All due meds given and tolerated well. Patient stable on vent settings. No distress noted. Will continue to monitor.
[2020-03-23] MEDS: dilTIAZem HCl 90mg tab GT SCH ×3 (06:19→22:00)
[2020-03-23 06:40] LABS: BILIRUBIN,DIRECT 1.1 MG/DL (0.0-0.3)
--- NOTE | 2020-03-23 07:25 | NUR ---
NURSE HAND-OFF REPORT: Important Events on Shift: Patient Status: Stable Diet: GT Pending Orders: Pending Results/Labs: Pending MD notification: Latest Vital Signs: Temperature 98.4 , Pulse 72 , B/P 167 /73 , Respiratory Rate 18 , O2 SAT 100 , Mechanical Ventilator, O2 Flow Rate 40.0 . Vital Sign Comment: EKG Rhythm: Sinus Rhythm Rhythm change?: N MD Notified?: N - Dr Jhonny RICARDO Response: pt now on cardizem gtt Latest Wall Fall Score: 75 Fall Risk: High Risk Safety Measures: Call light Within Reach, Bed Alarm Zone 3, Side Rails Side Rails x3, Bed position Low and Locked. Fall Precautions: Yellow Socks Yellow Gown Door Sign Patient Fall Education Report given to LISSA Austin.
--- NOTE | 2020-03-23 08:00 | NUR ---
NURSE NOTES: Received patient not in any acute cardio respiratory distress with vent setting well tolerated. suction secretion prn. Complete bath provided. Head to toe assessment done. Gt feeding well tolerated.
[2020-03-23] MEDS: Pantoprazole Inj IV SCH ×2 (08:30→21:00)
[2020-03-23] MEDS: Docusate 100mg/10ml Liq ORAL SCH ×2 (08:30→21:00)
[2020-03-23] MEDS: Heparin 5000 units/ml inj SUBQ SCH ×2 (08:33→21:00)
[2020-03-23 08:44] VITALS: BP 173/74
--- NOTE | 2020-03-23 10:00 | NUR ---
NURSE NOTES: Started on MG and Kpos as ordered. Will monitor as ordered.
--- NOTE | 2020-03-23 10:07 | Neurology Progress Note ---
Interim History Interim History ROS Limited/Unobtainable: Yes Interim History no new deficits Objective Physical Exam Last Vital Signs Date Time Temp Pulse Resp B/P (MAP) Pulse Ox O2 Delivery O2 Flow Rate FiO2 03/23/20 08:44 98.2 71 20 173/74 (107) 100 03/23/20 08:00 35 03/23/20 04:00 Mechanical Ventilator Mechanical Ventilator 03/15/20 03:51 40.0 Laboratory Tests Test 03/23/20 04:00 White Blood Count 8.2 K/UL (4.8-10.8) Red Blood Count 2.87 M/UL (4.70-6.10) L Hemoglobin 8.7 G/DL (14.2-18.0) L Hematocrit 27.3 % (42.0-52.0) L Mean Corpuscular Volume 95 FL (80-99) Mean Corpuscular Hemoglobin 30.3 PG (27.0-31.0) Mean Corpuscular Hemoglobin Concent 31.8 G/DL (32.0-36.0) L Red Cell Distribution Width 17.1 % (11.6-14.8) H Platelet Count 188 K/UL (150-450) Mean Platelet Volume 9.8 FL (6.5-10.1) Neutrophils (%) (Auto) % (45.0-75.0) Lymphocytes (%) (Auto) % (20.0-45.0) Monocytes (%) (Auto) % (1.0-10.0) Eosinophils (%) (Auto) % (0.0-3.0) Basophils (%) (Auto) % (0.0-2.0) Sodium Level 146 MMOL/L (136-145) H Potassium Level 4.1 MMOL/L (3.5-5.1) Chloride Level 111 MMOL/L (98-107) H Carbon Dioxide Level 33 MMOL/L (21-32) H Anion Gap 2 mmol/L (5-15) L Blood Urea Nitrogen 26 mg/dL (7-18) H Creatinine 0.6 MG/DL (0.55-1.30) Estimat Glomerular Filtration Rate > 60 mL/min (>60) Glucose Level 99 MG/DL (74-106) Calcium Level 8.1 MG/DL (8.5-10.1) L Phosphorus Level 2.2 MG/DL (2.5-4.9) L Magnesium Level 1.7 MG/DL (1.8-2.4) L Total Bilirubin 1.3 MG/DL (0.2-1.0) H Direct Bilirubin 1.1 MG/DL (0.0-0.3) H Aspartate Amino Transf (AST/SGOT) 39 U/L (15-37) H Alanine Aminotransferase (ALT/SGPT) 192 U/L (12-78) H Alkaline Phosphatase 76 U/L (46-116) Total Protein 6.0 G/DL (6.4-8.2) L Albumin 1.6 G/DL (3.4-5.0) L Globulin 4.4 g/dL Albumin/Globulin Ratio 0.4 (1.0-2.7) L Neurologic Exam Mental Status: awake Objective somnolent open eyes right sided parkinsonism, withdraws all 4. 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 parkinsonism on exam ,likely vascular map >65 cards following cont atb cont heparin eeg no seizures ct brain noted. pt as able Winston Brown MD Mar 23, 2020 10:07
--- NOTE | 2020-03-23 11:29 | Nephrology Progress Note ---
Assessment/Plan Problem List: (1) NIURKA (acute kidney injury) (2) Renal failure (ARF), acute on chronic (3) HTN (hypertension) (4) Sepsis (5) Elevated LFTs Assessment Acute renal failure secondary to urinary outlet obstruction Electrolyte abnormalities, hyperkalemia Chronic respiratory failure trach and vent dependent History of atrial fibrillation PEG Anemia Patient presented with low blood pressure and shock liver Plan March 23: Labs reviewed. Abnormal electrolytes addressed. Patient remains intubated on ventilator. Continues to be full code. March 22: No labs drawn today. Will order labs tomorrow. Continue per current management. Continue per cardiology advice with regard to the heart rate and blood pressure March 21: Labs reviewed. Abnormal electrolytes addressed. Continue per current management. March 20: Labs reviewed. Abnormal electrolytes addressed. Continue to monitor electrolytes. March 19: Labs reviewed. Discussed with Dr. Danielle. Tamiko from renal standpoint of view. Continues to have trach, PEG, Johnson. Trial of discont inuation of Johnson can be done in-house or as an outpatient. March 18: Labs reviewed. Abnormal electrolytes addressed per orders. Continue per consultants. D5W IV fluid is discontinued March 17: Renal parameters improved. Abnormal electrolyte noted reviewed and addressed. Continue per current management. Discussed with RN. March 16: Renal parameters improved. Abnormal electrolytes addressed. Blood pressure controlled. Continue per current management. March 15: Hydrate and change IV to D5W. Add Norvasc for high blood pressure. Continue to monitor renal parameters and electrolytes. Can start GT feeding. Discussed with RN. March 14: Hydrate As needed hydralazine for high or high blood pressure Monitor electrolyte Treatment of underlying sepsis Per orders Subjective ROS Limited/Unobtainable: Yes Objective Objective Last 24 Hour Vital Signs Date Time Temp Pulse Resp B/P (MAP) Pulse Ox O2 Delivery O2 Flow Rate FiO2 03/23/20 08:44 98.2 71 20 173/74 (107) 100 03/23/20 08:34 174/73 03/23/20 08:01 67 03/23/20 08:00 35 03/23/20 07:10 64 19 35 03/23/20 06:19 72 167/73 03/23/20 04:00 72 03/23/20 04:00 98.4 68 18 167/73 (104) 100 03/23/20 04:00 Mechanical Ventilator Mechanical Ventilator 03/23/20 04:00 35 03/23/20 03:06 76 19 35 03/23/20 00:00 55 03/23/20 00:00 Mechanical Ventilator Mechanical Ventilator 03/23/20 00:00 98.1 65 18 154/67 (96) 100 03/22/20 23:10 58 15 35 03/22/20 20:54 65 160/79 03/22/20 20:00 35 03/22/20 20:00 Mechanical Ventilator Mechanical Ventilator 03/22/20 20:00 66 03/22/20 20:00 98.1 65 18 160/79 (106) 100 03/22/20 19:02 64 17 35 03/22/20 16:00 Mechanical Ventilator Mechanical Ventilator 03/22/20 16:00 68 03/22/20 16:00 35 03/22/20 16:00 97.7 66 15 77/74 (75) 100 03/22/20 15:45 66 158/77 03/22/20 15:00 75 20 35 03/22/20 12:00 35 03/22/20 12:00 62 03/22/20 12:00 Mechanical Ventilator Mechanical Ventilator 03/22/20 12:00 97.7 68 17 161/80 (107) 100 Intake and Output 03/22/20 03/23/20 19:00 07:00 Intake Total 650 ml 805 ml Output Total 800 ml 1000 ml Balance -150 ml -195 ml Intake Free Water 100 ml 200 ml Tube Feeding 550 ml 605 ml Output Urine Total 800 ml 1000 ml Laboratory Tests 03/23/20 04:00: White Blood Count 8.2, Red Blood Count 2.87L, Hemoglobin 8.7L, Hematocrit 27.3L, Mean Corpuscular Volume 95, Mean Corpuscular Hemoglobin 30.3, Mean Corpuscular Hemoglobin Concent 31.8L, Red Cell Distribution Width 17.1H, Platelet Count 188, Mean Platelet Volume 9.8, Neutrophils (%) (Auto) , Lymphocytes (%) (Auto) , Monocytes (%) (Auto) , Eosinophils (%) (Auto) , Basophils (%) (Auto) , Sodium Level 146H, Potassium Level 4.1, Chloride Level 111H, Carbon Dioxide Level 33H, Anion Gap 2L, Blood Urea Nitrogen 26H, Creatinine 0.6, Estimat Glomerular Filtration Rate > 60, Glucose Level 99, Calcium Level 8.1L, Phosphorus Level 2.2L, Magnesium Level 1.7L, Total Bilirubin 1.3H, Direct Bilirubin 1.1H, Aspartate Amino Transf (AST/SGOT) 39H, Alanine Aminotransferase (ALT/SGPT) 192H, Alkaline Phosphatase 76, Total Protein 6.0L, Albumin 1.6L, Globulin 4.4, Albumin/Globulin Ratio 0.4L Height (Feet): 6 Weight (Pounds): 185 General Appearance: other - Intubated on ventilator Cardiovascular: normal rate Respiratory/Chest: decreased breath sounds Abdomen: distended Tano Longoria MD Mar 23, 2020 11:29
[2020-03-23] MEDS ORDERED: Potassium Phosphate 20 MM in NS 275 ML IV SCH (11:30)
--- NOTE | 2020-03-23 11:39 | General Progress Note ---
Subjective Date patient seen: Mar 22, 2020 Time patient seen: 10:00 ROS Limited/Unobtainable: Yes Allergies: Coded Allergies: No Known Allergies (Unverified , 02/11/20) Subjective non verbal Objective Last 24 Hour Vital Signs Date Time Temp Pulse Resp B/P (MAP) Pulse Ox O2 Delivery O2 Flow Rate FiO2 03/23/20 08:44 98.2 71 20 173/74 (107) 100 03/23/20 08:34 174/73 03/23/20 08:01 67 03/23/20 08:00 Mechanical Ventilator Mechanical Ventilator 03/23/20 08:00 35 03/23/20 07:10 64 19 35 03/23/20 06:19 72 167/73 03/23/20 04:00 72 03/23/20 04:00 98.4 68 18 167/73 (104) 100 03/23/20 04:00 Mechanical Ventilator Mechanical Ventilator 03/23/20 04:00 35 03/23/20 03:06 76 19 35 03/23/20 00:00 55 03/23/20 00:00 Mechanical Ventilator Mechanical Ventilator 03/23/20 00:00 98.1 65 18 154/67 (96) 100 03/22/20 23:10 58 15 35 03/22/20 20:54 65 160/79 03/22/20 20:00 35 03/22/20 20:00 Mechanical Ventilator Mechanical Ventilator 03/22/20 20:00 66 03/22/20 20:00 98.1 65 18 160/79 (106) 100 03/22/20 19:02 64 17 35 03/22/20 16:00 Mechanical Ventilator Mechanical Ventilator 03/22/20 16:00 68 03/22/20 16:00 35 03/22/20 16:00 97.7 66 15 77/74 (75) 100 03/22/20 15:45 66 158/77 03/22/20 15:00 75 20 35 03/22/20 12:00 35 03/22/20 12:00 62 03/22/20 12:00 Mechanical Ventilator Mechanical Ventilator 03/22/20 12:00 97.7 68 17 161/80 (107) 100 Intake and Output 03/22/20 03/23/20 19:00 07:00 Intake Total 650 ml 805 ml Output Total 800 ml 1000 ml Balance -150 ml -195 ml Intake Free Water 100 ml 200 ml Tube Feeding 550 ml 605 ml Output Urine Total 800 ml 1000 ml Laboratory Tests 03/23/20 04:00: White Blood Count 8.2, Red Blood Count 2.87L, Hemoglobin 8.7L, Hematocrit 27.3L, Mean Corpuscular Volume 95, Mean Corpuscular Hemoglobin 30.3, Mean Corpuscular Hemoglobin Concent 31.8L, Red Cell Distribution Width 17.1H, Platelet Count 188, Mean Platelet Volume 9.8, Neutrophils (%) (Auto) , Lymphocytes (%) (Auto) , Monocytes (%) (Auto) , Eosinophils (%) (Auto) , Basophils (%) (Auto) , Sodium Level 146H, Potassium Level 4.1, Chloride Level 111H, Carbon Dioxide Level 33H, Anion Gap 2L, Blood Urea Nitrogen 26H, Creatinine 0.6, Estimat Glomerular Filtration Rate > 60, Glucose Level 99, Calcium Level 8.1L, Phosphorus Level 2.2L, Magnesium Level 1.7L, Total Bilirubin 1.3H, Direct Bilirubin 1.1H, Aspartate Amino Transf (AST/SGOT) 39H, Alanine Aminotransferase (ALT/SGPT) 192H, Alkaline Phosphatase 76, Total Protein 6.0L, Albumin 1.6L, Globulin 4.4, Albumin/Globulin Ratio 0.4L Height (Feet): 6 Weight (Pounds): 185 General Appearance: WD/WN EENT: PERRL/EOMI Neck: non-tender Cardiovascular: normal rate Respiratory/Chest: normal breath sounds Abdomen: soft Neurologic: item processor II-XII grossly normal Objective CLINICAL HISTORY: ABN LABS TECHNIQUE: Real-time ultrasound of the abdomen with image documentation. COMPARISON: Abdominal ultrasound on 02/17/2020 FINDINGS: Liver: Left liver not visualized. Liver measures 13.0 cm. No focal lesion. Gallbladder: No gallbladder wall thickening or pericholecystic fluid. No definite stones or sludge. Common bile duct: Normal common bile duct measuring 5.2 mm. No stones. No dilation. Pancreas: Pancreas could not be visualized due to presence of bandaging. Kidneys: Right kidney measures 8.3 cm in length. No hydronephrosis or stone. Left kidney measures 10.3 cm in length. No hydronephrosis or stone. Spleen: Spleen measures 8.9 cm. Aorta: Not visualized. Inferior vena cava: Not visualized. Other vasculature: Patent main portal vein with normal direction of flow. Free fluid: No ascites. IMPRESSION: No acute findings in the abdomen. 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 # Bradycardia - Junctional rhythym on admission, resolved. # NSTEMI - Serial troponin with decreasing titter noted. TTE Initial EKG showed junctional bradycardia and prolonged QRS/QT interval concerning for hyperkalemia. Patient's HR in the ER was 40 worsened into heart rate in the 20s with subsequent hypotension /. Patient was treated with calcium, magnesium, bicarb at bedside due to concern for hyperkalemia. Atropine and Epi given in the ER. Dopamine gtt titration started in the ED. Cardiology consultation requested with Dr. Barry and telemetry showed Atrial Fibrillation with RVR 03/15/20. Diltiazem gtt started and now adjusted to Cadizem 60 mg q 6 hr, GT and now telemetry shows stable heart rate. Continue CCB therapy per discussion with Dr. Barry from cardiology. #Sepsis consistent with ventilator associated pneumonia. Tracheostomy is in place Broad sp antibiotic started and WBC improving and less than 20K now GNR in all blood culture bottles noted ID consultation requested with Dr Hines. Sp Removal of L fem CVC, possible source of fever/leukocytosis GNR bacteremia most likely 2/2 UTI. Completing a 7 day course of antibiotics. Obstructive uropathy s/p drainage w/ aggarwal 03/13 BCx +P.mirabilis (S-CTX) UCx +ESBL E.coli and ESBL P.mirabilis COVID rapid Ag neg CXR: BL pna Abd US neg 03/15 Resp cx +ESBL E.coli and Serratia marcesens 03/19 BCx NTD ?Mastoiditis, regardless on course of meropenem 03/17 CTH: 1. Loss of hernandez-white differentiation in the left frontal lobe which may represent subacute or chronic infarct, especially given multifocal encephalomalacia. However, in the absence of comparison imaging, further evaluation with MRI is recommended to exclude acute infarct. 2. Large bilateral mastoid effusions; correlation for mastoiditis is recommended. # Hyperkalemia on admission Treated medically. Renal consulation requested with Dr. Laguerre # Hypomagnesemia Replete # Hypophosphatemia Replet # History of L renal mass by US 02/17/20 # NIURKA on CKD Creatinine decreasing and possibly due to severe urinary retention which was relieved in the ED after aggarwal insertion. Monitor I/O's Renal consultation appreciated. Patient has sacral ulcers and incontinence of urine will worsen the wounds. Will keep Aggarwal for now. He does not have proper anatomy for condom cath and will be incontinent. #Elevated LFT's and prior history of cirrhosis # Shock liver due to hypotension Trend LFT's GI consultation completed with Dr. Del Castillo and no intervention or further workup recommended at this time. 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 I discussed with family and they reported that the patient is full care trach/peg since original CVA, he is NOT ambulatory and non verbal which is his current state now. LINES PICC in place and will be continued to complete antibiotic. FULL CODE DISPO: [facility] tomorrow. Va Danielle MD Mar 23, 2020 11:39
--- NOTE | 2020-03-23 11:43 | Discharge Instructions ---
Discharge Instructions For Congestive Heart Failure Reminder Report to your physician any weight gain of 5 pounds or more in one week. Va Danielle MD Mar 23, 2020 11:43
[2020-03-23 12:00] VITALS: BP 149/74
--- NOTE | 2020-03-23 13:01 | Infectious Diseases Prog Note ---
Assessment/Plan 85yo M with: Afebrile Leukocytosis to 21, improved 03/19 Sp Removal of L fem CVC, possible source of fever/leukocytosis GNR bacteremia most likely 2/2 UTI Obstructive uropathy s/p drainage w/ aggarwal 03/13 BCx +P.mirabilis (S-CTX) UCx +ESBL E.coli and ESBL P.mirabilis COVID rapid Ag neg CXR: BL pna Abd US neg 03/15 Resp cx +ESBL E.coli and Serratia marcesens 03/19 BCx NTD ?Mastoiditis, regardless on course of meropenem 03/17 CTH: 1. Loss of hernandez-white differentiation in the left frontal lobe which may represent subacute or chronic infarct, especially given multifocal encephalomalacia. However, in the absence of comparison imaging, further evaluation with MRI is recommended to exclude acute infarct. 2. Large bilateral mastoid effusions; correlation for mastoiditis is recommended. NIURKA, improving Elevated LFTs - AST 1858 / ALT 3987 >> improving Acute hep panel neg Acute on chronic resp failure S/p trach/PEG, vent dependent Prior CVA Hemiplegia Dysphagia Gastroparesis Pressure ulcers Nonverbal SNF resident Plan: Cont meropenem #10/13 to cover for ESBL UTI and bacteremia. Trend WBC, improving 03/17 SP Zosyn #3 03/16 SP vanco #2 empiric Monitor CBC/CMP Monitor resp status Monitor temp curve, hemodynamics D/w RN and primary Dr. Danielle Thank you for this consult. [facility] will continue to follow. Subjective Allergies: Coded Allergies: No Known Allergies (Unverified , 02/11/20) AF WBC 8.2 NAD on vent 35% PEEP 5 Objective Last 24 Hour Vital Signs Date Time Temp Pulse Resp B/P (MAP) Pulse Ox O2 Delivery O2 Flow Rate FiO2 03/23/20 12:34 35 03/23/20 12:33 Mechanical Ventilator Mechanical Ventilator 03/23/20 11:56 100 03/23/20 08:44 98.2 71 20 173/74 (107) 100 03/23/20 08:34 174/73 03/23/20 08:01 67 03/23/20 08:00 Mechanical Ventilator Mechanical Ventilator 03/23/20 08:00 35 03/23/20 07:10 64 19 35 03/23/20 06:19 72 167/73 03/23/20 04:00 72 03/23/20 04:00 98.4 68 18 167/73 (104) 100 03/23/20 04:00 Mechanical Ventilator Mechanical Ventilator 03/23/20 04:00 35 03/23/20 03:06 76 19 35 03/23/20 00:00 55 03/23/20 00:00 Mechanical Ventilator Mechanical Ventilator 03/23/20 00:00 98.1 65 18 154/67 (96) 100 03/22/20 23:10 58 15 35 03/22/20 20:54 65 160/79 03/22/20 20:00 35 03/22/20 20:00 Mechanical Ventilator Mechanical Ventilator 03/22/20 20:00 66 03/22/20 20:00 98.1 65 18 160/79 (106) 100 03/22/20 19:02 64 17 35 03/22/20 16:00 Mechanical Ventilator Mechanical Ventilator 03/22/20 16:00 68 03/22/20 16:00 35 03/22/20 16:00 97.7 66 15 77/74 (75) 100 03/22/20 15:45 66 158/77 03/22/20 15:00 75 20 35 Height (Feet): 6 Weight (Pounds): 185 Gen: NAD in bed HEENT: NCAT +trach CV: RRR Pulm: CTAB Abd: Soft, NTND Ext: No c/c/e Neuro: Sleeping Laboratory Tests Test 03/23/20 04:00 White Blood Count 8.2 K/UL (4.8-10.8) Red Blood Count 2.87 M/UL (4.70-6.10) L Hemoglobin 8.7 G/DL (14.2-18.0) L Hematocrit 27.3 % (42.0-52.0) L Mean Corpuscular Volume 95 FL (80-99) Mean Corpuscular Hemoglobin 30.3 PG (27.0-31.0) Mean Corpuscular Hemoglobin Concent 31.8 G/DL (32.0-36.0) L Red Cell Distribution Width 17.1 % (11.6-14.8) H Platelet Count 188 K/UL (150-450) Mean Platelet Volume 9.8 FL (6.5-10.1) Neutrophils (%) (Auto) % (45.0-75.0) Lymphocytes (%) (Auto) % (20.0-45.0) Monocytes (%) (Auto) % (1.0-10.0) Eosinophils (%) (Auto) % (0.0-3.0) Basophils (%) (Auto) % (0.0-2.0) Sodium Level 146 MMOL/L (136-145) H Potassium Level 4.1 MMOL/L (3.5-5.1) Chloride Level 111 MMOL/L (98-107) H Carbon Dioxide Level 33 MMOL/L (21-32) H Anion Gap 2 mmol/L (5-15) L Blood Urea Nitrogen 26 mg/dL (7-18) H Creatinine 0.6 MG/DL (0.55-1.30) Estimat Glomerular Filtration Rate > 60 mL/min (>60) Glucose Level 99 MG/DL (74-106) Calcium Level 8.1 MG/DL (8.5-10.1) L Phosphorus Level 2.2 MG/DL (2.5-4.9) L Magnesium Level 1.7 MG/DL (1.8-2.4) L Total Bilirubin 1.3 MG/DL (0.2-1.0) H Direct Bilirubin 1.1 MG/DL (0.0-0.3) H Aspartate Amino Transf (AST/SGOT) 39 U/L (15-37) H Alanine Aminotransferase (ALT/SGPT) 192 U/L (12-78) H Alkaline Phosphatase 76 U/L (46-116) Total Protein 6.0 G/DL (6.4-8.2) L Albumin 1.6 G/DL (3.4-5.0) L Globulin 4.4 g/dL Albumin/Globulin Ratio 0.4 (1.0-2.7) L Current Medications Medications (Trade) Dose Ordered Sig/Natalia Route PRN Reason Start Time Stop Time Status Last Admin Dose Admin Acetaminophen (Tylenol) 650 mg Q4H PRN GT Mild Pain 03/17/20 06:15 04/16/20 06:14 03/18/20 10:15 Acetaminophen (Tylenol) 650 mg Q4H PRN GT fever 03/17/20 06:30 04/16/20 06:29 03/19/20 21:03 Bisacodyl (Dulcolax) 10 mg DAILYPRN PRN RECTAL Constipation 03/13/20 22:45 06/11/20 22:44 Chlorhexidine Gluconate (Shirley-Hex 2%) 1 applic DAILY@2000 TOPIC 03/18/20 20:00 06/16/20 19:59 03/22/20 20:54 Clonidine HCl (Catapres Tab) 0.1 mg Q2H PRN ORAL For High Blood Pressure 03/16/20 11:30 06/14/20 11:29 03/23/20 08:34 Dextrose (Dextrose 50%) 25 ml Q30M PRN IV Hypoglycemia 03/13/20 22:45 06/11/20 22:44 Dextrose (Dextrose 50%) 50 ml Q30M PRN IV Hypoglycemia 03/13/20 22:45 06/11/20 22:44 Diltiazem HCl (Cardizem Tab) 90 mg EVERY 8 HOURS GT 03/18/20 11:00 04/17/20 10:59 03/23/20 06:19 Docusate Sodium (Colace) 100 mg Q12HR ORAL 03/15/20 10:00 04/14/20 09:59 03/23/20 08:30 Enalaprilat (Vasotec) 1.25 mg Q3H PRN IV For High Blood Pressure 03/16/20 11:30 04/15/20 11:29 Heparin Sodium (Porcine) (Heparin 5000 units/ml) 5,000 units EVERY 12 HOURS SUBQ 03/14/20 09:00 04/28/20 08:59 03/23/20 08:33 Meropenem 1 gm/ Sodium Chloride 55 ml @ 110 mls/hr Q8H IVPB 03/17/20 11:00 03/25/20 10:59 03/23/20 10:22 Ondansetron HCl (Zofran) 4 mg Q6H PRN IVP Nausea & Vomiting 03/13/20 22:45 04/12/20 22:44 Pantoprazole (Protonix) 40 mg Q12HR IV 03/14/20 21:00 04/13/20 08:59 03/23/20 08:30 Carmen Hines M.D. Mar 23, 2020 13:01
--- NOTE | 2020-03-23 13:32 | Surgery Progress Note ---
Surgery Progress Note Subjective Additional Comments lft's improving no n/v d/c planning comfortable Objective Last 24 Hour Vital Signs Date Time Temp Pulse Resp B/P (MAP) Pulse Ox O2 Delivery O2 Flow Rate FiO2 03/23/20 12:34 35 03/23/20 12:33 Mechanical Ventilator Mechanical Ventilator 03/23/20 11:56 100 03/23/20 08:44 98.2 71 20 173/74 (107) 100 03/23/20 08:34 174/73 03/23/20 08:01 67 03/23/20 08:00 Mechanical Ventilator Mechanical Ventilator 03/23/20 08:00 35 03/23/20 07:10 64 19 35 03/23/20 06:19 72 167/73 03/23/20 04:00 72 03/23/20 04:00 98.4 68 18 167/73 (104) 100 03/23/20 04:00 Mechanical Ventilator Mechanical Ventilator 03/23/20 04:00 35 03/23/20 03:06 76 19 35 03/23/20 00:00 55 03/23/20 00:00 Mechanical Ventilator Mechanical Ventilator 03/23/20 00:00 98.1 65 18 154/67 (96) 100 03/22/20 23:10 58 15 35 03/22/20 20:54 65 160/79 03/22/20 20:00 35 03/22/20 20:00 Mechanical Ventilator Mechanical Ventilator 03/22/20 20:00 66 03/22/20 20:00 98.1 65 18 160/79 (106) 100 03/22/20 19:02 64 17 35 03/22/20 16:00 Mechanical Ventilator Mechanical Ventilator 03/22/20 16:00 68 03/22/20 16:00 35 03/22/20 16:00 97.7 66 15 77/74 (75) 100 03/22/20 15:45 66 158/77 03/22/20 15:00 75 20 35 I&O Intake and Output 03/22/20 03/23/20 19:00 07:00 Intake Total 650 ml 805 ml Output Total 800 ml 1000 ml Balance -150 ml -195 ml Intake Free Water 100 ml 200 ml Tube Feeding 550 ml 605 ml Output Urine Total 800 ml 1000 ml Dressing: saturated Cardiovascular: RSR Respiratory: decreased breath sounds Abdomen: non-tender, present bowel sounds Extremities: no edema, no tenderness, no cyanosis Laboratory Tests Test 03/23/20 04:00 White Blood Count 8.2 K/UL (4.8-10.8) Red Blood Count 2.87 M/UL (4.70-6.10) L Hemoglobin 8.7 G/DL (14.2-18.0) L Hematocrit 27.3 % (42.0-52.0) L Mean Corpuscular Volume 95 FL (80-99) Mean Corpuscular Hemoglobin 30.3 PG (27.0-31.0) Mean Corpuscular Hemoglobin Concent 31.8 G/DL (32.0-36.0) L Red Cell Distribution Width 17.1 % (11.6-14.8) H Platelet Count 188 K/UL (150-450) Mean Platelet Volume 9.8 FL (6.5-10.1) Neutrophils (%) (Auto) % (45.0-75.0) Lymphocytes (%) (Auto) % (20.0-45.0) Monocytes (%) (Auto) % (1.0-10.0) Eosinophils (%) (Auto) % (0.0-3.0) Basophils (%) (Auto) % (0.0-2.0) Sodium Level 146 MMOL/L (136-145) H Potassium Level 4.1 MMOL/L (3.5-5.1) Chloride Level 111 MMOL/L (98-107) H Carbon Dioxide Level 33 MMOL/L (21-32) H Anion Gap 2 mmol/L (5-15) L Blood Urea Nitrogen 26 mg/dL (7-18) H Creatinine 0.6 MG/DL (0.55-1.30) Estimat Glomerular Filtration Rate > 60 mL/min (>60) Glucose Level 99 MG/DL (74-106) Calcium Level 8.1 MG/DL (8.5-10.1) L Phosphorus Level 2.2 MG/DL (2.5-4.9) L Magnesium Level 1.7 MG/DL (1.8-2.4) L Total Bilirubin 1.3 MG/DL (0.2-1.0) H Direct Bilirubin 1.1 MG/DL (0.0-0.3) H Aspartate Amino Transf (AST/SGOT) 39 U/L (15-37) H Alanine Aminotransferase (ALT/SGPT) 192 U/L (12-78) H Alkaline Phosphatase 76 U/L (46-116) Total Protein 6.0 G/DL (6.4-8.2) L Albumin 1.6 G/DL (3.4-5.0) L Globulin 4.4 g/dL Albumin/Globulin Ratio 0.4 (1.0-2.7) L Plan Problems: (1) Lactic acidosis (2) Bradycardia (3) Renal failure (4) Shock liver (5) Chronic respiratory failure (6) Hyperkalemia (7) Anemia (8) Electrolyte imbalance (9) Sepsis Assessment & Plan: leukocytosis anemia shock liver elevated lft's decubitus ulcer respiratory insufficiency decubitus ulcers cont abx local wound care diet as tolerated tf turn q2h wean support s tolerated Pt presented on admission with multiple Skin breakdown.Scattered Senile purpuras both upper extremities. Category 3 Skin Tear R antecubital/R lateral elbow with 100% Flap loss. Base of wound is hallie with scattered Biofilm.. Edges are macerated with surrounding purpura. MASD upper L back. Affected area is reg pink with scattered satellite lesions that mostly dry with Few lesions noted to have small amt sanguineous exudate. Sacral DTPI (L)5.5cm x (W)6.5cm. Base of Pressure Injury is indurated with , Maroon with purpuric area at sacrococcygeal area. Scattered dry plaques noted to L Buttocks. Scrotum and medial/upper aspects of both thighs are erythematous. R Heel is boggy with non-Blanchable erythema. L Heel is boggy with non-blanchable erythema. DTPI Lateral R Malleolus (L)1.5cm x (W)1cm. Non-Blanchable erythema R Hallux. Distal /lateral L foot/L 5th metatarsal is boggy with non-blanchable erythema. Tx.Plan: Cleanse Skin Tear R arm with Saline. Cover with Versatel One Contact layer drsg. Apply Silvasorb gel. Cover with Optifoam drsg. Change every 7 days and prn. Apply Triad Paste to Rash L upper back daily and prn. Leave open to air. Apply Moisture Barrier Paste to Sacrum. Cover with Optifoam drsg. Change every 3 days and prn. Apply Moisture Barrier Paste to scrotum and Medial/Posterior Aspects fo both Upper thighs with each incontinence care. Reposition at least every 2hours or as tolerated. Off-load heels with pillow. APM/EULALIA Mattress overlay. (10) Shock (11) NSTEMI (non-ST elevated myocardial infarction) (12) Aspiration pneumonia (13) Tracheostomy complication (14) HTN (hypertension) (15) Tracheostomy malfunction (16) NIURKA (acute kidney injury) (17) Renal failure (ARF), acute on chronic (18) Elevated LFTs Yousuf Samayoa Mar 23, 2020 13:32
--- NOTE | 2020-03-23 13:41 | NUR ---
*-*DISCHARGE PLANNED*-* PATIENT HAS BEEN ACCEPTED AND WILL BE DISCHARGED BACK TO: [facility] P: [phone] FOR NURSE TO NURSE REPORT ROOM# 10.[facility] TRANSPORTATION SET FOR 3PM S/W YOLANDA [id number]. S/W PATIENTS DAUGHTER SABRINA SALCEDO, WHO IS IN AGREEMENT WITH DISCHARGE PLAN.
--- NOTE | 2020-03-23 13:42 | Pulmonology Progress Note ---
Subjective ROS Limited/Unobtainable: Yes Interval Events: None new reported Constitutional: Reports: no symptoms HEENT: Repors: no symptoms Respiratory: Reports: no symptoms Cardiovascular: Reports: no symptoms Gastrointestinal/Abdominal: Reports: no symptoms Genitourinary: Reports: no symptoms Allergies: Coded Allergies: No Known Allergies (Unverified , 02/11/20) All Systems: reviewed and negative except above Objective Last 24 Hour Vital Signs Date Time Temp Pulse Resp B/P (MAP) Pulse Ox O2 Delivery O2 Flow Rate FiO2 03/23/20 12:34 35 03/23/20 12:33 Mechanical Ventilator Mechanical Ventilator 03/23/20 11:56 100 03/23/20 08:44 98.2 71 20 173/74 (107) 100 03/23/20 08:34 174/73 03/23/20 08:01 67 03/23/20 08:00 Mechanical Ventilator Mechanical Ventilator 03/23/20 08:00 35 03/23/20 07:10 64 19 35 03/23/20 06:19 72 167/73 03/23/20 04:00 72 03/23/20 04:00 98.4 68 18 167/73 (104) 100 03/23/20 04:00 Mechanical Ventilator Mechanical Ventilator 03/23/20 04:00 35 03/23/20 03:06 76 19 35 03/23/20 00:00 55 03/23/20 00:00 Mechanical Ventilator Mechanical Ventilator 03/23/20 00:00 98.1 65 18 154/67 (96) 100 03/22/20 23:10 58 15 35 03/22/20 20:54 65 160/79 03/22/20 20:00 35 03/22/20 20:00 Mechanical Ventilator Mechanical Ventilator 03/22/20 20:00 66 03/22/20 20:00 98.1 65 18 160/79 (106) 100 03/22/20 19:02 64 17 35 03/22/20 16:00 Mechanical Ventilator Mechanical Ventilator 03/22/20 16:00 68 03/22/20 16:00 35 03/22/20 16:00 97.7 66 15 77/74 (75) 100 03/22/20 15:45 66 158/77 03/22/20 15:00 75 20 35 Intake and Output 03/22/20 03/23/20 19:00 07:00 Intake Total 650 ml 805 ml Output Total 800 ml 1000 ml Balance -150 ml -195 ml Intake Free Water 100 ml 200 ml Tube Feeding 550 ml 605 ml Output Urine Total 800 ml 1000 ml Objective 03/23/2020 no significant change noted 03/22/2020 s/p trach 03/19/2020 s/p trach; current vent setting AC 14, VT 500, PEEP 5, FiO2 35% General Appearance: no acute distress HEENT: normocephalic, mucous membranes moist, status post trach Respiratory: chest wall non-tender, decreased breath sounds Cardiovascular: normal peripheral pulses, normal rate Abdomen: normal bowel sounds, other - s/p G tube Genitourinary: other - Johnson Extremities: other - 1+ pitting edema Laboratory Tests 03/23/20 04:00: White Blood Count 8.2, Red Blood Count 2.87L, Hemoglobin 8.7L, Hematocrit 27.3L, Mean Corpuscular Volume 95, Mean Corpuscular Hemoglobin 30.3, Mean Corpuscular Hemoglobin Concent 31.8L, Red Cell Distribution Width 17.1H, Platelet Count 188, Mean Platelet Volume 9.8, Neutrophils (%) (Auto) , Lymphocytes (%) (Auto) , Monocytes (%) (Auto) , Eosinophils (%) (Auto) , Basophils (%) (Auto) , Sodium Level 146H, Potassium Level 4.1, Chloride Level 111H, Carbon Dioxide Level 33H, Anion Gap 2L, Blood Urea Nitrogen 26H, Creatinine 0.6, Estimat Glomerular Filtration Rate > 60, Glucose Level 99, Calcium Level 8.1L, Phosphorus Level 2.2L, Magnesium Level 1.7L, Total Bilirubin 1.3H, Direct Bilirubin 1.1H, Aspartate Amino Transf (AST/SGOT) 39H, Alanine Aminotransferase (ALT/SGPT) 192H, Alkaline Phosphatase 76, Total Protein 6.0L, Albumin 1.6L, Globulin 4.4, Albumi n/Globulin Ratio 0.4L Current Medications Medications (Trade) Dose Ordered Sig/Natalia Route PRN Reason Start Time Stop Time Status Last Admin Dose Admin Acetaminophen (Tylenol) 650 mg Q4H PRN GT Mild Pain 03/17/20 06:15 04/16/20 06:14 03/18/20 10:15 Acetaminophen (Tylenol) 650 mg Q4H PRN GT fever 03/17/20 06:30 04/16/20 06:29 03/19/20 21:03 Bisacodyl (Dulcolax) 10 mg DAILYPRN PRN RECTAL Constipation 03/13/20 22:45 06/11/20 22:44 Chlorhexidine Gluconate (Shirley-Hex 2%) 1 applic DAILY@2000 TOPIC 03/18/20 20:00 06/16/20 19:59 03/22/20 20:54 Clonidine HCl (Catapres Tab) 0.1 mg Q2H PRN ORAL For High Blood Pressure 03/16/20 11:30 06/14/20 11:29 03/23/20 08:34 Dextrose (Dextrose 50%) 25 ml Q30M PRN IV Hypoglycemia 03/13/20 22:45 06/11/20 22:44 Dextrose (Dextrose 50%) 50 ml Q30M PRN IV Hypoglycemia 03/13/20 22:45 06/11/20 22:44 Diltiazem HCl (Cardizem Tab) 90 mg EVERY 8 HOURS GT 03/18/20 11:00 04/17/20 10:59 03/23/20 06:19 Docusate Sodium (Colace) 100 mg Q12HR ORAL 03/15/20 10:00 04/14/20 09:59 03/23/20 08:30 Enalaprilat (Vasotec) 1.25 mg Q3H PRN IV For High Blood Pressure 03/16/20 11:30 04/15/20 11:29 Heparin Sodium (Porcine) (Heparin 5000 units/ml) 5,000 units EVERY 12 HOURS SUBQ 03/14/20 09:00 04/28/20 08:59 03/23/20 08:33 Meropenem 1 gm/ Sodium Chloride 55 ml @ 110 mls/hr Q8H IVPB 03/17/20 11:00 03/25/20 10:59 03/23/20 10:22 Ondansetron HCl (Zofran) 4 mg Q6H PRN IVP Nausea & Vomiting 03/13/20 22:45 04/12/20 22:44 Pantoprazole (Protonix) 40 mg Q12HR IV 03/14/20 21:00 04/13/20 08:59 03/23/20 08:30 Assessment/Plan Assessment/Plan IMPRESSION: 1.Bilateral pulmonary infiltrates. 2. Pneumonia, healthcare associated. 3. Bacteremia with gram-negative rods. 4. UTI with gram-negative rods. 5. Negative COVID-19 rapid gene assay. 6. Chronic respiratory failure. 7. Seizure disorder. 8. Liver cirrhosis. 9. Paroxysmal atrial fibrillation. DISCUSSION: Agree with current medications and care. continue assist-control mechanical ventilation. Last ABG is adequate. Abx per ID/Dr Danielle Decrease FiO2 as tolerated. Discussed with Dr. Danielle. Seen in SDU dc planning The care for this patient was discussed with my supervising physician Time spent for this case was approximately 31 minutes The patient was seen and examined at bedside and all new and available data was reviewed in the patients chart. I agree with the above findings, impression, and plan. (Patient was seen earlier today. Signature timestamp does not reflect patient encounter time) Corona Camejo MD Mar 23, 2020 13:42 Rylan Otero MD Mar 23, 2020 18:12
--- NOTE | 2020-03-23 14:46 | NUR ---
NURSE NOTES: Called [facility] and gave report to Rebekah ALCARAZ.
[2020-03-23 16:27] VITALS: BP 170/93
--- NOTE | 2020-03-23 17:37 | General Progress Note ---
Subjective Allergies: Coded Allergies: No Known Allergies (Unverified , 02/11/20) Subjective above noted calm tolerating TF d/c plans noted Objective Last 24 Hour Vital Signs Date Time Temp Pulse Resp B/P (MAP) Pulse Ox O2 Delivery O2 Flow Rate FiO2 03/23/20 16:47 55 03/23/20 16:27 98.3 95 17 170/93 (118) 100 03/23/20 16:27 170/93 03/23/20 16:11 35 03/23/20 16:10 Mechanical Ventilator Mechanical Ventilator 03/23/20 15:15 54 14 35 03/23/20 13:51 104 149/93 03/23/20 12:34 35 03/23/20 12:33 Mechanical Ventilator Mechanical Ventilator 03/23/20 12:00 98.2 104 17 149/74 (99) 100 03/23/20 11:56 100 03/23/20 11:42 106 17 35 03/23/20 08:44 98.2 71 20 173/74 (107) 100 03/23/20 08:34 174/73 03/23/20 08:01 67 03/23/20 08:00 Mechanical Ventilator Mechanical Ventilator 03/23/20 08:00 35 03/23/20 07:10 64 19 35 03/23/20 06:19 72 167/73 03/23/20 04:00 72 03/23/20 04:00 98.4 68 18 167/73 (104) 100 03/23/20 04:00 Mechanical Ventilator Mechanical Ventilator 03/23/20 04:00 35 03/23/20 03:06 76 19 35 03/23/20 00:00 55 03/23/20 00:00 Mechanical Ventilator Mechanical Ventilator 03/23/20 00:00 98.1 65 18 154/67 (96) 100 03/22/20 23:10 58 15 35 03/22/20 20:54 65 160/79 03/22/20 20:00 35 03/22/20 20:00 Mechanical Ventilator Mechanical Ventilator 03/22/20 20:00 66 03/22/20 20:00 98.1 65 18 160/79 (106) 100 03/22/20 19:02 64 17 35 Intake and Output 03/22/20 03/23/20 19:00 07:00 Intake Total 650 ml 860 ml Output Total 800 ml 1000 ml Balance -150 ml -140 ml Intake Free Water 100 ml 200 ml Tube Feeding 550 ml 660 ml Output Urine Total 800 ml 1000 ml Laboratory Tests 03/23/20 04:00: White Blood Count 8.2, Red Blood Count 2.87L, Hemoglobin 8.7L, Hematocrit 27.3L, Mean Corpuscular Volume 95, Mean Corpuscular Hemoglobin 30.3, Mean Corpuscular Hemoglobin Concent 31.8L, Red Cell Distribution Width 17.1H, Platelet Count 188, Mean Platelet Volume 9.8, Neutrophils (%) (Auto) , Lymphocytes (%) (Auto) , Monocytes (%) (Auto) , Eosinophils (%) (Auto) , Basophils (%) (Auto) , Sodium Level 146H, Potassium Level 4.1, Chloride Level 111H, Carbon Dioxide Level 33H, Anion Gap 2L, Blood Urea Nitrogen 26H, Creatinine 0.6, Estimat Glomerular Filtration Rate > 60, Glucose Level 99, Calcium Level 8.1L, Phosphorus Level 2.2L, Magnesium Level 1.7L, Total Bilirubin 1.3H, Direct Bilirubin 1.1H, Aspartate Amino Transf (AST/SGOT) 39H, Alanine Aminotransferase (ALT/SGPT) 192H, Alkaline Phosphatase 76, Total Protein 6.0L, Albumin 1.6L, Globulin 4.4, Albumin/Globulin Ratio 0.4L Height (Feet): 6 Weight (Pounds): 185 Objective Elderly man NCAT (+) trach coarse BS RR abd soft ND NT, (+) GT no edema Assessment/Plan Status: unchanged Assessment/Plan: Assessment - Acute severe transaminitis with rapid fall, likely ischemic hepatitis - Resp failure, s/p trach - dysphagia, s/p PEG - CVA, OBS - atrial fib Recommendations - IVF - follow LFT - declining - supportive care - follow hepatitis markers - negative - TF - Elevate HOB - consider CT scan as outpatient if no resolutin of LFT changes Ajit Chappell MD Mar 23, 2020 17:37
--- NOTE | 2020-03-23 18:57 | NUR ---
RESPIRATORY NOTE: Received pt on AC VC 14, 500VT, 35%, PEEP +5. Pt is trach-dependent w/ a cuffed, Portex 7 tube. Pt asleep/disoriented. B/S niko. rhonchi, sxn small to moderate amounts of thick, kerr-yellow secretions. Vent plugged into red outlet, ambubag at bedside. Pt in no apparent distress at this time. Will continue plan of care.
--- NOTE | 2020-03-23 19:07 | NUR ---
NURSE HAND-OFF REPORT: Important Events on Shift:NONE Patient Status: FULL CODE Diet: Pending Orders: NONE Pending Results/Labs:NONE Pending MD notification:NONE Latest Vital Signs: Temperature 98.3 , Pulse 64 , B/P 170 /93 , Respiratory Rate 14 , O2 SAT 100 , Mechanical Ventilator, O2 Flow Rate 40.0 . Vital Sign Comment: EKG Rhythm: SINUS Rhythm change?: N MD Notified?: N - MD Response:N Latest Wall Fall Score: 75 Fall Risk: High Risk Safety Measures: Call light Within Reach, Bed Alarm Zone 3, Side Rails Side Rails x3, Bed position Low and Locked. Fall Precautions: Yellow Socks Yellow Gown Door Sign Patient Fall Education Report given to GENARO. PATIENT FOR DISCHARGED TODAY WAITING FOR AMBULANCE.
--- NOTE | 2020-03-23 19:10 | NUR ---
NURSE NOTES: Received patient from [facility] under the care of Dr. Danielle for the admitting dx. of symptomatic bradycardia. Noted NKA and full code status. Patient on contact isolation. Fall, seizure, and aspiration precautions observed and maintained at all times. Patient is obtunded and responsive to light pain stimuli. Tolerating vent settings well. No acute distress noted. 0/10 FLACC score noted at this time. Patient ready for D/C, awaiting transport. Will continue to monitor.
--- NOTE | 2020-03-23 19:26 | Cardiac Electrophysiology PN ---
Assessment/Plan Assessment/Plan 1. Profound bradycardia, heart rate dropping to 20s associated with hypotension due to the hyperkalemia and metoprolol. The metoprolol has been discontinued and the patient received atropine and hyperkalemia was treated. Currently, he is not bradycardic despite Cardizem 90 tid. 2. Troponin elevation 0.2, 0.4, 0.2, likely due to demand ischemia in this patient with severe sepsis and septic shock. EF 55% 3. Initial hypotension and shock. Likely due to sepsis. White count is improving and the patient is now off both Levophed and dopamine. 4. Hypertension. Within 24 hours, his blood pressure improved from 70 to 200s. Cannot use NNAMDI inhibitor or angiotensin-receptor blockers in view of hyperkalemia and acute renal failure either. On Cardizem and prn vasotec and clonidine 5. Atrial fib with RVR. On Cardizem 90 q 8 6. Ventilator-dependent respiratory failure, status post tracheostomy. 7. Dysphagia, status post PEG placement. 8. CVA with hemiplegia. 9. Pressure ulcers. 10. Anemia. 11. Shock liver. LELAND RN Subjective Subjective On the Vent via trach with 35% Fio2 and PEEP 5. Troponins flat and low On Cardizem 90 tid via PEG. No rizwana overnight. Objective Last 24 Hour Vital Signs Date Time Temp Pulse Resp B/P (MAP) Pulse Ox O2 Delivery O2 Flow Rate FiO2 03/23/20 18:56 64 14 35 03/23/20 16:47 55 03/23/20 16:27 98.3 95 17 170/93 (118) 100 03/23/20 16:27 170/93 03/23/20 16:11 35 03/23/20 16:10 Mechanical Ventilator Mechanical Ventilator 03/23/20 15:15 54 14 35 03/23/20 13:51 104 149/93 03/23/20 12:34 35 03/23/20 12:33 Mechanical Ventilator Mechanical Ventilator 03/23/20 12:00 98.2 104 17 149/74 (99) 100 03/23/20 11:56 100 03/23/20 11:42 106 17 35 03/23/20 08:44 98.2 71 20 173/74 (107) 100 03/23/20 08:34 174/73 03/23/20 08:01 67 03/23/20 08:00 Mechanical Ventilator Mechanical Ventilator 03/23/20 08:00 35 03/23/20 07:10 64 19 35 03/23/20 06:19 72 167/73 03/23/20 04:00 72 03/23/20 04:00 98.4 68 18 167/73 (104) 100 03/23/20 04:00 Mechanical Ventilator Mechanical Ventilator 03/23/20 04:00 35 03/23/20 03:06 76 19 35 03/23/20 00:00 55 03/23/20 00:00 Mechanical Ventilator Mechanical Ventilator 03/23/20 00:00 98.1 65 18 154/67 (96) 100 03/22/20 23:10 58 15 35 03/22/20 20:54 65 160/79 03/22/20 20:00 35 03/22/20 20:00 Mechanical Ventilator Mechanical Ventilator 03/22/20 20:00 66 03/22/20 20:00 98.1 65 18 160/79 (106) 100 Intake and Output 03/22/20 03/23/20 19:00 07:00 Intake Total 650 ml 860 ml Output Total 800 ml 1000 ml Balance -150 ml -140 ml Intake Free Water 100 ml 200 ml Tube Feeding 550 ml 660 ml Output Urine Total 800 ml 1000 ml Laboratory Tests Test 03/23/20 04:00 White Blood Count 8.2 K/UL (4.8-10.8) Red Blood Count 2.87 M/UL (4.70-6.10) L Hemoglobin 8.7 G/DL (14.2-18.0) L Hematocrit 27.3 % (42.0-52.0) L Mean Corpuscular Volume 95 FL (80-99) Mean Corpuscular Hemoglobin 30.3 PG (27.0-31.0) Mean Corpuscular Hemoglobin Concent 31.8 G/DL (32.0-36.0) L Red Cell Distribution Width 17.1 % (11.6-14.8) H Platelet Count 188 K/UL (150-450) Mean Platelet Volume 9.8 FL (6.5-10.1) Neutrophils (%) (Auto) % (45.0-75.0) Lymphocytes (%) (Auto) % (20.0-45.0) Monocytes (%) (Auto) % (1.0-10.0) Eosinophils (%) (Auto) % (0.0-3.0) Basophils (%) (Auto) % (0.0-2.0) Sodium Level 146 MMOL/L (136-145) H Potassium Level 4.1 MMOL/L (3.5-5.1) Chloride Level 111 MMOL/L (98-107) H Carbon Dioxide Level 33 MMOL/L (21-32) H Anion Gap 2 mmol/L (5-15) L Blood Urea Nitrogen 26 mg/dL (7-18) H Creatinine 0.6 MG/DL (0.55-1.30) Estimat Glomerular Filtration Rate > 60 mL/min (>60) Glucose Level 99 MG/DL (74-106) Calcium Level 8.1 MG/DL (8.5-10.1) L Phosphorus Level 2.2 MG/DL (2.5-4.9) L Magnesium Level 1.7 MG/DL (1.8-2.4) L Total Bilirubin 1.3 MG/DL (0.2-1.0) H Direct Bilirubin 1.1 MG/DL (0.0-0.3) H Aspartate Amino Transf (AST/SGOT) 39 U/L (15-37) H Alanine Aminotransferase (ALT/SGPT) 192 U/L (12-78) H Alkaline Phosphatase 76 U/L (46-116) Total Protein 6.0 G/DL (6.4-8.2) L Albumin 1.6 G/DL (3.4-5.0) L Globulin 4.4 g/dL Albumin/Globulin Ratio 0.4 (1.0-2.7) L Objective HEAD AND NECK: No JVD. Status post tracheostomy. LUNGS: Coarse rhonchi. CARDIOVASCULAR: Regular S1 and S2 with no gallop. ABDOMEN: Status post G-tube. EXTREMITIES: 1+ pitting edema. Liang Barry MD Mar 23, 2020 19:26
[2020-03-23 20:00] VITALS: BP 131/82
[2020-03-23] MEDS: Dyna-Hex 2% Top Sol 2oz TOPIC SCH (20:00)
[2020-03-23] MEDS ORDERED: Tubing IV Secondary IV ONE ×2 (22:16→22:46)
[2020-03-23] MEDS ORDERED: NS 275ml ONE ×3 (22:16→22:46)
[2020-03-23] MEDS ORDERED: Sterile Water Irrig 1000ml IRRIG ONE (22:46)
--- NOTE | 2020-03-23 23:00 | NUR ---
NURSE NOTES: Ambulance transport came to pick out hand patient but refused pick out hand due to patient SBP>170. PRN medication provided as per order. RN with medical transport stated that their company placed patient on will call list and will be priority as soon as HTN is resolved. Will continue to monitor.
[2020-03-24] VITALS: BP 161/81
[2020-03-24 01:50] VITALS: BP 170/74
[2020-03-24] MEDS ORDERED: NS 275ml ONE (02:29)
[2020-03-24] MEDS ORDERED: NS 500ML ONE (02:29)
--- NOTE | 2020-03-24 02:36 | NUR ---
NURSE NOTES: Patient transferred out to [facility] in stable condition, assisted by ambulance staff. Report was given to LISSA Ballesteros staff at [facility].
== END 2020-03-24 02:30 | DRG 720 ==
LOC: EDBD 19:02 → EMR 19:05 → EDBEDREQSVC 20:58 → EDBEDREQ 20:58 → ICU 03-14 17:39 → 2W 03-17 23:12
PROC: 5A1955Z Respiratory Ventilation, Greater than 96 Consecutive Hours (ICD-10-PCS; principal; 2020-03-14)
PROC: 02HV33Z Insertion of Infusion Device into Superior Vena Cava, Percutaneous Approach (ICD-10-PCS; 2020-03-19)
DX: A41.9 Sepsis, unspecified organism (principal); R65.21 Severe sepsis with septic shock; K72.00 Acute and subacute hepatic failure without coma; J95.851 Ventilator associated pneumonia; J96.20 Acute and chronic respiratory failure, unspecified whether with hypoxia or hypercapnia; N17.9 Acute kidney failure, unspecified; N32.0 Bladder-neck obstruction; D64.9 Anemia, unspecified; E87.5 Hyperkalemia; N18.9 Chronic kidney disease, unspecified; G40.909 Epilepsy, unspecified, not intractable, without status epilepticus; I48.0 Paroxysmal atrial fibrillation; E83.42 Hypomagnesemia; K31.84 Gastroparesis; I21.4 Non-ST elevation (NSTEMI) myocardial infarction; Z43.1 Encounter for attention to gastrostomy; Z43.0 Encounter for attention to tracheostomy; E83.39 Other disorders of phosphorus metabolism; I69.359 Hemiplegia and hemiparesis following cerebral infarction affecting unspecified side; I95.9 Hypotension, unspecified; Z99.11 Dependence on respirator [ventilator] status; I35.0 Nonrheumatic aortic (valve) stenosis; I27.20 Pulmonary hypertension, unspecified; R13.10 Dysphagia, unspecified; N39.0 Urinary tract infection, site not specified; B96.89 Other specified bacterial agents as the cause of diseases classified elsewhere; K74.60 Unspecified cirrhosis of liver; L89.156 Pressure-induced deep tissue damage of sacral region; L89.516 Pressure-induced deep tissue damage of right ankle; Y83.3 Surgical operation with formation of external stoma as the cause of abnormal reaction of the patient, or of later complication, without mention of misadventure at the time of the procedure; B96.20 Unspecified Escherichia coli [E. coli] as the cause of diseases classified elsewhere; Z16.12 Extended spectrum beta lactamase (ESBL) resistance; B96.4 Proteus (mirabilis) (morganii) as the cause of diseases classified elsewhere
CPT/HCPCS: 36415; 36569; 70450; 71045; 76700; 76937; 80048; 80053; 80061; 80076; 80202; 81003; 82140; 82248; 82270; 82550; 82607; 82728; 82746; 82803; 82977; 83540; 83550; 83605; 83690; 83735; 83880; 84100; 84439; 84443; 84484; 84550; 85007; 85025; 86140; 86705; 86709; 86803; 86850; 86900; 86901; 87040; 87070; 87081; 87086; 87181; 87205; 87340; 93005; 93306; 94002; 94003; 95819; J7030; J7620; U0002